=== PATIENT | female | born 1970 | race African-American/Black ===

== ENCOUNTER 2017-10-30 09:19 | Inpatient (IN) | payer OTHER ==
--- NOTE | 2017-10-30 10:42 | HP ---
Admitting History and Physical - Admission Chief Complaint: Morbid obesity History Source: Patient Limitations to Obtaining History: No Limitations - Past Medical History Cardiovascular: Yes: HTN, Hyperlipdemia Pulmonary: Yes: COPD ...LMP: 10/23/17 ...: No Musculoskeletal: Yes: Chronic low back pain Endocrine: Yes: Diabetes Mellitus, Hypothyroidism - Past Surgical History Additional Past Surgical History: thyroidectomy - Smoking History Smoking history: Never smoked - Alcohol/Substance Use Hx Alcohol Use: Yes (social) Home Medications - Allergies Allergies/Adverse Reactions: Allergies Allergy/AdvReac Type Severity Reaction Status Date / Time No Known Allergies Allergy Verified 10/30/17 10:11 - Home Medications Home Medications: Ambulatory Orders Levothyroxine [Synthroid -] 150 mcg PO DAILY 04/20/17 Aspirin [ASA -] 81 mg PO DAILY 10/29/17 Atorvastatin Calcium 20 mg PO DAILY 10/29/17 Insulin Aspart [Novolog] 30 unit SQ DAILY 10/29/17 Insulin Degludec [Tresiba Flextouch U-100] 50 unit SQ DAILY 10/29/17 Metformin HCl [Glucophage] 1,000 mg PO DAILY 10/29/17 Famotidine [Pepcid] 20 mg PO BID #60 tablet 10/30/17 Oxycodone HCl/Acetaminophen [Percocet 5-325 mg Tablet] 1 - 2 tab PO Q6H #28 tab MDD 4 10/30/17 Family Disease History - Family Disease History Family History: Denies Review of Systems - Review of Systems Constitutional: denies: Chills, Fever Eyes: reports: No Symptoms HENT: reports: No Symptoms Neck: reports: No Symptoms Cardiovascular: reports: No Symptoms Respiratory: reports: No Symptoms Gastrointestinal: reports: No Symptoms Neurological: denies: Change in LOC Pain Intensity: 0 Physical Examination Vital Signs: Vital Signs Temperature 98.4 F 10/30/17 10:00 Pulse Rate 104 H 10/30/17 10:00 Respiratory Rate 18 10/30/17 10:00 Blood Pressure 163/94 10/30/17 10:00 O2 Sat by Pulse Oximetry (%) 100 10/30/17 10:11 Constitutional: Yes: Calm HENT: Yes: WNL Neck: Yes: WNL Cardiovascular: Yes: Regular Rate and Rhythm Respiratory: Yes: Regular Gastrointestinal: Yes: Soft, Abdomen, Obese Neurological: Yes: Alert, Oriented Problem List - Problems (1) Morbid (severe) obesity due to excess calories Code(s): E66.01 - MORBID (SEVERE) OBESITY DUE TO EXCESS CALORIES (2) BMI 50.0-59.9, adult Code(s): Z68.43 - BODY MASS INDEX (BMI) 50-59.9 , ADULT (3) Diabetes mellitus Code(s): E11.9 - TYPE 2 DIABETES MELLITUS WITHOUT COMPLICATIONS Qualifiers: Diabetes mellitus type: type 2 Diabetes mellitus half-way insulin use: unspecified half-way insulin use status Diabetes mellitus complication status : with unspecified complications Qualified Code(s): E11.8 - Type 2 diabetes mellitus with unspecified complications (4) Sleep apnea with use of continuous positive airway pressure (CPAP) Code(s): G47.30 - SLEEP APNEA, UNSPECIFIED (5) Hypertension Code(s): I10 - ESSENTIAL (PRIMARY) HYPERTENSION Qualifiers: Hypertension type: unspecified Qualified Code(s): I10 - Essential (primary ) hypertension (6) Hypercholesteremia Code(s): E78.00 - PURE HYPERCHOLESTEROLEMIA, UNSPECIFIED Assessment/Plan Laparoscopic possible open vertical sleeve gastrectomy, possible liver biopsy, EGD
[2017-10-30] MEDS ORDERED: INSULIN REGULAR HUMAN 100 UNITS/ML *VIAL SQ ONE (10:45)
[2017-10-30] MEDS ORDERED: MIDAZOLAM HCL 2 MG/2 ML SINGLE DOSE VIAL ONE (13:08)
[2017-10-30] MEDS ORDERED: ROCURONIUM BROMIDE 50 MG/5 ML VIAL ONE ×2 (13:08→15:18)
[2017-10-30] MEDS ORDERED: DEXAMETHASONE SOD PHOSPHATE 4 MG/1 ML VIAL ONE (13:08)
[2017-10-30] MEDS ORDERED: PROPOFOL 20 ML ONE (13:08)
[2017-10-30] MEDS ORDERED: fentaNYL CITRATE 250 MCG/5 ML VIAL ONE (13:08)
[2017-10-30] MEDS ORDERED: LIDOCAINE HCL/PF 2% SDV 5ML VIAL ONE (13:08)
[2017-10-30] MEDS ORDERED: NEOSTIGMINE METHYLSULFATE 0.5 MG/ML - 10 ML MDV ONE ×2 (13:22→16:30)
[2017-10-30] MEDS ORDERED: GLYCOPYRROLATE 0.2 MG/1 ML VIAL ONE ×2 (13:23→16:31)
[2017-10-30] MEDS ORDERED: ONDANSETRON 4 MG/2 ML VIAL IVPUSH PRN (13:57)
[2017-10-30] MEDS ORDERED: LACTATED RINGERS SOLUTION 1,000 ML IV SCH (14:00)
[2017-10-30] MEDS ORDERED: DESFLURANE GAS 240 ML BOTTLE IH ONE (14:19)
[2017-10-30] MEDS ORDERED: BUPIVACAINE HCL/PF 0.5% (5MG/ML) 10 ML VIAL ONE (14:31)
[2017-10-30] MEDS ORDERED: ceFAZolin SODIUM 1 GM VIAL IVPB ONE (14:50)
[2017-10-30] MEDS ORDERED: ceFAZolin SODIUM 1 GM VIAL ONE (14:51)
[2017-10-30] MEDS ORDERED: PHENYLEPHRINE HCL 10 MG/1 ML SINGLE DOSE VIAL ONE (15:23)
--- NOTE | 2017-10-30 16:33 | OP ---
Operative Note - Note: Operative Date: 10/30/17 Pre-Operative Diagnosis: Morbid obesity. BMI 58.2. Diabetes mellitus. Hypercholeterolemia Operation: Laparoscopic vertical sleeve gastrectomy, liver biopsy, EGD Post-Operative Diagnosis: Other (Same as preop as well as hepatomegaly) Surgeon: Oscar Evans (Ling Lazar) Pitch Gatherer: Luiz Carpenter Anesthesia: General Specimens Removed: Greater curvature of stomach. Liver biopsy Drains & Tubes with Location: 36 fr Bougie Operative Report Dictated: Yes
[2017-10-30] MEDS ORDERED: LIDOCAINE HCL/PF 1% SDV 5ML VIAL ONE (16:34)
--- NOTE | 2017-10-30 17:06 | SURG ---
Surgery Field Court Researcher Note Field Court Researcher: Luiz Carpenter PA-C Date of Service: 10/30/17 Diagnosis: Morbid obesity. BMI 58.2. Diabetes mellitus. Hypercholeterolemia Procedure: Laparoscopic vertical sleeve gastrectomy, liver biopsy, EGD I was present for the entirety of the operative procedure. For further detail, please refer to operative report. Visit type - Case Type Case Type: Scheduled - New patient This patient is new to me today: Yes Date on this admission: 10/30/17
[2017-10-30] MEDS ORDERED: ACETAMINOPHEN INJECTION 100 ML IVPB ONE (17:19)
[2017-10-30] MEDS ORDERED: METOCLOPRAMIDE HCL INJECTION 10 MG/2 ML VIAL ONE (17:19)
[2017-10-30] MEDS ORDERED: ONDANSETRON 4 MG/2 ML VIAL ONE (17:19)
[2017-10-30] MEDS: ACETAMINOPHEN 1000 MG/100 ML VIAL (NON FORMULARY) IVPB SCH (17:30)
[2017-10-30 17:53] LABS: HEMATOCRIT 34.7 % (32.4-45.2); HEMOGLOBIN 11.4 GM/dL (10.7-15.3); MCH 28.7 pg (25.7-33.7); MCHC 32.8 g/dl (32.0-36.0); MEAN CELL VOLUME 87.4 fl (80-96); MEAN PLT VOLUME 9.8 fl (7.5-11.1); PLATELET COUNT 212 K/MM3 (134-434); RBC 3.97 M/mm3 (3.60-5.2); RDW 14.5 % (11.6-15.6); WHITE BLOOD COUNT 14.6 K/mm3 (4.0-10.0)
[2017-10-30] MEDS: METOCLOPRAMIDE HCL INJECTION 10 MG/2 ML VIAL IVPUSH SCH ×2 (18:00→22:38)
[2017-10-30] MEDS ORDERED: SODIUM CHLORIDE 1,000 ML IV SCH (18:00)
[2017-10-30] MEDS: ONDANSETRON 4 MG/2 ML VIAL IVPUSH SCH ×2 (18:15→22:44)
[2017-10-30 18:27] LABS: ALBUMIN 2.9 g/dl (3.4-5.0); ALK PHOS 120 U/L (45-117); ANION GAP 8 MMOL/L (8-16); BILIRUBIN,TOTAL 0.2 mg/dL (0.2-1); BLOOD UREA NITROGEN 28 mg/dL (7-18); CALCIUM 8.7 mg/dL (8.5-10.1); CHLORIDE 102 mmol/L (98-107); CO2 25 mmol/L (21-32); GLUCOSE,RANDOM 216 mg/dL (74-106); POTASSIUM 4.5 mmol/L (3.5-5.1); SGOT/AST 96 U/L (15-37); SGPT/ALT 68 U/L (13-61); SODIUM 134 mmol/L (136-145); TOT PROT 7.7 g/dl (6.4-8.2)
[2017-10-30] MEDS: INSULIN SLIDING SCALE (NOVOLOG) 1 VIAL SQ SCH (19:56)
--- NOTE | 2017-10-30 20:03 | SPEC ---
DATE OF OPERATION: 10/30/2017 SURGEON: Oscar Evans MD VISION SPECIALIST: JS Magallon and Ling Lazar. PREOPERATIVE DIAGNOSIS: 1. Morbid obesity. 2. Body Mass Index (BMI) 58.2. 3. Hypercholesterolemia. 4. Diabetes mellitus. 5. Obstructive sleep apnea. POSTOPERATIVE DIAGNOSIS: 1. Morbid obesity. 2. Body Mass Index (BMI) 58.2. 3. Hypercholesterolemia. 4. Diabetes mellitus. 5. Obstructive sleep apnea. 6. Hepatomegaly. PROCEDURES: 1. Laparoscopic vertical sleeve gastrectomy. 2. Laparoscopic wedge liver biopsy. 3. Esophagogastroduodenoscopy. SPECIMENS: 1. Greater curvature of the stomach. 2. Liver biopsy. ESTIMATED BLOOD LOSS: 30 mL. DRAINS: None. ANESTHESIA: GET. BOUGIE SIZE: 36-[place]istani. REASON FOR PROCEDURE: This is a 47-year-old female who presents for weight loss options. After describing different options, she decided to proceed with a laparoscopic, possible open, vertical sleeve gastrectomy, possible liver biopsy and upper endoscopy. RISKS AND BENEFITS: After describing the different options for weight loss management, the patient decided to proceed with a laparoscopic, possible open vertical sleeve gastrectomy. The patient was seen by the respective subspecialties and cleared for surgery. The risks and benefits of the procedure were explained. These included bleeding, infection, hernia, KS, DVT, PE, injury to surrounding structures including the liver, colon, bowel, spleen, esophagus, vessel injury, nerve injury, weight regain, gastric leak, staple line leak, sleeve leak, obstruction, vitamin deficiency, hair loss and as some of the possible complications. The patient understood and signed informed consent. DESCRIPTION OF PROCEDURE: The patient was placed supine on the operating room table. The patient underwent general endotracheal intubation. The arms were brought out at 90 degrees and secured. A footboard was placed and the legs were secured laterally with padding. The abdomen was prepped and draped in the usual sterile fashion. A timeout was performed. An incision was made in the left upper quadrant and a Veress needle inserted. Pneumoperitoneum was established. Subsequently, the Veress needle was removed and a 5-mm trocar was placed under direct visualization with the laparoscope. The laparoscopic camera was then inserted and inspection of the abdominal cavity was performed. An incision was then made in the supraumbilical area and a 15-mm trocar was placed under direct visualization. A 5-mm trocar was then placed in the right upper quadrant and a 5-mm trocar was placed below the left subcostal margin. A stab wound was made in the subxiphoid area and a Mendy clamp inserted and removed to dilate the tract. A Trudy liver retractor was inserted. The post was secured at the bedside by the nursing staff. The patient was placed in steep reverse Trendelenburg position and the Trudy liver retractor was used to secure the liver towards the anterior abdominal wall. The pylorus was identified and 6 cm proximal to it, the lesser sac was entered using the LigaSure device. All lateral attachments to the greater curvature of the stomach, including the short gastric vessels, were ligated using the LigaSure device toward the gastrosplenic and gastrophrenic ligaments. Once this was done in its entirety, it was confirmed that all tubes within the nasal or oropharyngeal cavity, including a temperature probe, was removed by Anesthesia. The bougie was then inserted by Anesthesia. Transection of the stomach was then begun staying adjacent to the bougie but away from the angularis. Transection of the stomach was performed near the portion of the stomach where the lesser sac was entered. Two laparoscopic Endo-KENDALL black shayan were used at this location. Laparoscopic Endo KENDALL purple staple loads were then used for the remainder of the transection until the greater curvature of the stomach was fully transected. This was done staying close to the bougie. Care was taken to stay away from the angle of His cephalad. The staple line was then inspected. Hemostasis was identified. A leak test was then performed. It was clamped distally to the staple line. Irrigation solution was placed in the left upper quadrant and air was insufflated by Anesthesia into the sleeve. No leaks were identified. No obstruction was identified. This was done through the entirety of the staple line. In addition, an upper endoscopy was performed. The endoscope was placed into the patients mouth and the entirety of the esophagus, GE junction, gastric pouch and staple line were inspected. No obstruction or leak was noted. The stomach was suctioned and the endoscope removed fully intact. At this point, the irrigation solution was suctioned and again, hemostasis was noted. A wedge liver biopsy was then performed. The left lobe of the liver was identified and a portion of the edge was grasped. Using electrocautery, a wedge of the liver was excised. This was removed and sent off the field as specimen. Hemostasis at the site of the wedge liver biopsy was attained using electrocautery. The 15-mm supraumbilical trocar was then removed and the greater curvature specimen removed from the site using a sponge stick li. The specimen was inspected and a Veress needle inserted. The specimen insufflated adequately and no leak was identified. The staple line was noted to be intact. A Jose-Melony device was then used to close the fascia with a 0 Vicryl suture at the site. Again, hemostasis was noted. The Trudy liver retractor was then removed under direct visualization. Pneumoperitoneum was desufflated and the fascial sutures were secured. Hemostasis was noted at all incision sites and Marcaine was injected at all incision sites. All incision sites were closed using 4-0 Biosyn. Sterile dressings were applied. The patient tolerated the procedure well and was transferred to the recovery room in stable condition. The patient was transferred to telemetry for further monitoring. Matias [id number]
[2017-10-30] MEDS: ENOXAPARIN NA (PORCINE) 40 MG/0.4 ML DISP.SYRIN SQ SCH (22:38)
[2017-10-30] MEDS: morphine SULFATE 4 MG/ML VIAL IVPUSH PRN (22:39)
[2017-10-30] MEDS: FAMOTIDINE 20 MG/50 ML IVPB 20 MG/50 ML MG IVPB SCH (22:39)
[2017-10-31] MEDS: ACETAMINOPHEN 1000 MG/100 ML VIAL (NON FORMULARY) IVPB SCH ×3 (01:40→11:42)
[2017-10-31] MEDS: ONDANSETRON 4 MG/2 ML VIAL IVPUSH SCH ×6 (02:17→21:42)
[2017-10-31] MEDS: METOCLOPRAMIDE HCL INJECTION 10 MG/2 ML VIAL IVPUSH SCH ×4 (02:17→21:42)
[2017-10-31 06:20] LABS: HEMATOCRIT 32.4 % (32.4-45.2); HEMOGLOBIN 10.5 GM/dL (10.7-15.3); MCH 28.2 pg (25.7-33.7); MCHC 32.3 g/dl (32.0-36.0); MEAN CELL VOLUME 87.1 fl (80-96); MEAN PLT VOLUME 9.6 fl (7.5-11.1); PLATELET COUNT 204 K/MM3 (134-434); RBC 3.72 M/mm3 (3.60-5.2); RDW 14.5 % (11.6-15.6); WHITE BLOOD COUNT 10.7 K/mm3 (4.0-10.0)
[2017-10-31] MEDS: INSULIN SLIDING SCALE (NOVOLOG) 1 VIAL SQ SCH ×3 (06:38→17:42)
--- NOTE | 2017-10-31 08:30 | PN ---
Progress Note (short form) - Note Progress Note: Pt seen and examined. States she is feeling well this morning. Denies any abdominal pain or discomfort. Tolerating ice chips without n/v. Has been oob to the restroom without issue. +Voiding. Denies cp, sob, calf pain/tenderness. Vital Signs Temp 98.9 F 10/31/17 05:00 Pulse 102 H 10/31/17 05:00 Resp 18 10/31/17 05:00 BP 136/67 10/31/17 05:00 Pulse Ox 100 10/30/17 21:00 Intake & Output 10/30/17 10/30/17 10/31/17 11:59 23:59 11:59 Intake Total 1450 1300 Output Total 30 Balance 1420 1300 Weight 350 lb 359 lb 3.2 oz Intake: IV 1450 1000 Normal Saline - 1,000 ml 1000 @ 150 mls/hr IV ASDIR PAULA Rx#:[id number] IVPB 300 Oral 0 Output: Estimated Blood Loss 30 Other: # Unmeasured Voids Void 1 Height 5 ft 5 in Body Mass Index (BMI) 58.2 Weight Measurement Method Estimated by Patient Standing Scale CBC, BMP 10/31/17 05:30 Gen: awake, alert, in nad. Laying in bed. Resp: cta b/l CV: rrr, s1s2, no murmur appreciated Abdomen: soft, nontender, nondistended. Bandaids c/d/i, no bleeding, no surrounding erythema or ecchymosis noted. No palpable hematoma. 47 y/o F w/ PMHx HTN, HLD, IDDM, hypothyroidism, FLORES, morbid obesity, now POD 1 , s/p Laparoscopic vertical sleeve gastrectomy, wedge liver biopsy, EGD. Stable post op, Mildly tachy to low 100s. CBC stable, BMP pending, pt with elevated creatinine on preop labs (2.0, with creat clearance <30) P: Upper GI series this AM F/U BMP Pain control with Ofirmev 1g q6h, Morphine 4mg q4hrs prn DVT prophylaxis with Lovenox 40mg bid (may need to change/adjust pending BMP), b /l SCDS, b/l TEDS GI prophylaxis with Pepcid 20mg IV BID, Reglan 10mg q6hrs Zofran 4mg q4hrs prn n/v FS, ISS Remote tele/continuous pulse ox Monitor VS Monitor I&Os OOB ad eri Continue IVF Incentive spirometry will discuss above with attending, Dr Evans <Marisa Lazar - Last Filed: 10/31/17 08:33> - Note Progress Note: POD 1 Pain controlled No nausea BP elevated HR WNL Abd soft K 5.4 Cr 2.0 UGI: no leak/obstruction Clears Nephrology and cardiology consults <Oscar Evans - Last Filed: 10/31/17 12:43> Problem List - Problems (1) Morbid (severe) obesity due to excess calories Code(s): E66.01 - MORBID (SEVERE) OBESITY DUE TO EXCESS CALORIES (2) BMI 50.0-59.9, adult Code(s): Z68.43 - BODY MASS INDEX (BMI) 50-59.9 , ADULT (3) Diabetes mellitus Code(s): E11.9 - TYPE 2 DIABETES MELLITUS WITHOUT COMPLICATIONS Qualifiers: Diabetes mellitus type: type 2 Diabetes mellitus skilled nursing insulin use: unspecified terminal supervisor insulin use status Diabetes mellitus complication status : with unspecified complications Qualified Code(s): E11.8 - Type 2 diabetes mellitus with unspecified complications (4) Sleep apnea with use of continuous positive airway pressure (CPAP) Code(s): G47.30 - SLEEP APNEA, UNSPECIFIED (5) Hypertension Code(s): I10 - ESSENTIAL (PRIMARY) HYPERTENSION Qualifiers: Hypertension type: unspecified Qualified Code(s): I10 - Essential (primary ) hypertension (6) Hypercholesteremia Code(s): E78.00 - PURE HYPERCHOLESTEROLEMIA, UNSPECIFIED <Oscar Evans - Last Filed: 10/31/17 12:43>
[2017-10-31 08:46] LABS: ALBUMIN 2.7 g/dl (3.4-5.0); ALK PHOS 112 U/L (45-117); ANION GAP 10 MMOL/L (8-16); BILIRUBIN,TOTAL 0.3 mg/dL (0.2-1); BLOOD UREA NITROGEN 29 mg/dL (7-18); CALCIUM 8.6 mg/dL (8.5-10.1); CHLORIDE 101 mmol/L (98-107); CO2 24 mmol/L (21-32); POTASSIUM 5.4 mmol/L (3.5-5.1); SGOT/AST 126 U/L (15-37); SGPT/ALT 71 U/L (13-61); SODIUM 134 mmol/L (136-145); TOT PROT 7.3 g/dl (6.4-8.2)
[2017-10-31 08:50] LABS: GLUCOSE,RANDOM 330 mg/dL (74-106)
[2017-10-31] MEDS: ENOXAPARIN NA (PORCINE) 40 MG/0.4 ML DISP.SYRIN SQ SCH ×2 (09:20→21:41)
[2017-10-31] MEDS: FAMOTIDINE 20 MG/50 ML IVPB 20 MG/50 ML MG IVPB SCH ×2 (09:20→21:42)
[2017-10-31] MEDS: morphine SULFATE 4 MG/ML VIAL IVPUSH PRN ×2 (09:21→19:55)
[2017-10-31] MEDS ORDERED: METOPROLOL TARTRATE 50 MG TABLET (FP) PO SCH (12:41)
[2017-10-31] MEDS ORDERED: PATIENT'S OWN MEDICATION (NON-FORMULARY) (Metformin Hcl [Glucophage] 1,000 MG) PO SCH (12:45)
[2017-10-31] MEDS ORDERED: SODIUM CHLORIDE 0.45% 1,000 ML IV SCH (12:45)
[2017-10-31] MEDS ORDERED: SODIUM CHLORIDE 1,000 ML IV SCH (12:45)
[2017-10-31] MEDS ORDERED: amLODIPine BESYLATE 10 MG TABLET (FP) PO ONE (14:00)
--- NOTE | 2017-10-31 15:35 | PN ---
Progress Note, Physician Chief Complaint: s/p lap vertical sleeve gastrectomy under general anesthesia History of Present Illness: post op day one - Current Medication List Current Medications: Active Medications Amlodipine Besylate (Norvasc -) 10 mg PO DAILY [facility] Enoxaparin Sodium (Lovenox -) 40 mg SQ BID [facility] Last Admin: 10/31/17 09:20 Dose: 40 mg Famotidine/Sodium Chloride (Pepcid 20 Mg Premixed Ivpb -) 20 mg in 50 mls @ 100 mls/hr IVPB BID [facility] Last Admin: 10/31/17 09:20 Dose: 100 mls/hr Sodium Chloride (1/2 Normal Saline) 1,000 mls @ 75 mls/hr IV ASDIR [facility] Last Admin: 10/31/17 15:02 Dose: 75 mls/hr Insulin Aspart (Novolog Vial Sliding Scale -) 1 vial SQ TIDAC [facility]; Protocol Last Admin: 10/31/17 11:42 Dose: 6 units Insulin Aspart (Novolog Vial) 30 units SQ AM [facility] Levothyroxine Sodium (Synthroid -) 150 mcg PO AM [facility] Metoclopramide HCl (Reglan Injection -) 10 mg IVPUSH Q6H-IV [facility] Last Admin: 10/31/17 15:02 Dose: 10 mg Metoprolol Succinate (Toprol Xl -) 100 mg PO DAILY [facility] Morphine Sulfate (Morphine Sulfate) 4 mg IVPUSH Q4H PRN PRN Reason: PAIN LEVEL 6-10 Last Admin: 10/31/17 09:21 Dose: 4 mg Non-Formulary Medication (Insulin Degludec [Tresiba Flextouch U-100]) 50 unit SQ DAILY [facility] Non-Formulary Medication (Metformin Hcl [Glucophage]) 1,000 mg PO DAILY [facility] Ondansetron HCl (Zofran Injection) 4 mg IVPUSH Q4H-IV [facility] Last Admin: 10/31/17 15:02 Dose: 4 mg Oxycodone HCl (Roxicodone -) 5 mg PO Q4H PRN PRN Reason: PAIN LEVEL 4 - 6 - Objective Vital Signs: Vital Signs Temperature 98.1 F 10/31/17 10:00 Pulse Rate 104 H 10/31/17 10:00 Respiratory Rate 18 10/31/17 10:00 Blood Pressure 174/90 H 10/31/17 10:00 O2 Sat by Pulse Oximetry (%) 100 10/31/17 10:00 Constitutional: Yes: Well Nourished Cardiovascular: Yes: WNL Respiratory: Yes: WNL Gastrointestinal: Yes: WNL Labs: CBC, BMP 10/31/17 05:30 10/31/17 05:30 Assessment/Plan No adverse effect of anesthetic, pain controlled, dept of anesthesia will sign off care at this time.
--- NOTE | 2017-10-31 18:27 | CONSULT ---
Consult Consult Specialty:: Nephrology Reason for Consultation:: REBEKAH - History of Present Illness Chief Complaint: s/p bariatric surgery - gastric sleeve History of Present Illness: Pt is a 47 year old female with pmhx of DM, obesity, CKD and HTN who is s/p gastric sleeve. I was called to evaluate her for elevated creatinine. She as also found to be hypertensive. Pt is on multiple agents for BP. She does not know all of her meds. I reviewed the med list from her PMD and from the pharmacy. There were some discrepancies with the meds. She is awake and alert. She says that she feels well. She denies shortness of breath. She denies palpitations. She denies dysuria or hematuria. She denies history of CKD however she did have an abnormal creatinine on previous bloodwork. - History Source History Provided By: Patient - Past Medical History Cardio/Vascular: Yes: HTN, Hyperlipdemia Pulmonary: Yes: COPD Renal/: Yes: Renal Inusuff ...LMP: 10/23/17 ...: No Musculoskeletal: Yes: Chronic low back pain Endocrine: Yes: Diabetes Mellitus, Hypothyroidism - Past Surgical History Past Surgical History: Yes: Bariatric Surgery Additional Surgical History: gastric sleeve - Alcohol/Substance Use Hx Alcohol Use: Yes (social) - Smoking History Smoking history: Never smoked Home Medications - Allergies Allergies/Adverse Reactions: Allergies Allergy/AdvReac Type Severity Reaction Status Date / Time No Known Allergies Allergy Verified 10/30/17 10:11 - Home Medications Home Medications: Ambulatory Orders Levothyroxine [Synthroid -] 150 mcg PO DAILY 04/20/17 Aspirin [ASA -] 81 mg PO DAILY 10/29/17 Insulin Aspart [Novolog] 30 unit SQ DAILY 10/29/17 Insulin Degludec [Tresiba Flextouch U-100] 50 unit SQ DAILY 10/29/17 Metformin HCl [Glucophage] 1,000 mg PO DAILY 10/29/17 RX: Atorvastatin Calcium 20 mg PO DAILY 10/29/17 Famotidine [Pepcid] 20 mg PO BID #60 tablet 10/30/17 Oxycodone HCl/Acetaminophen [Percocet 5-325 mg Tablet] 1 - 2 tab PO Q6H #28 tab MDD 4 10/30/17 Amlodipine Besylate [Norvasc -] 5 mg PO DAILY 10/31/17 Furosemide [Lasix] 40 mg PO BID 10/31/17 Losartan 50Mg/Hctz 12.5MG [Hyzaar -] 1 tab PO DAILY 10/31/17 RX: Ramipril 5 mg PO DAILY 10/31/17 Family Disease History - Family Disease History Family History: Denies Review of Systems - Review of Systems Constitutional: reports: No Symptoms Eyes: reports: No Symptoms HENT: reports: No Symptoms Neck: reports: No Symptoms Cardiovascular: reports: No Symptoms Respiratory: reports: No Symptoms Gastrointestinal: reports: Other (s/p bariatric surgery) Musculoskeletal: reports: No Symptoms Integumentary: reports: No Symptoms Neurological: reports: No Symptoms Endocrine: reports: No Symptoms Hematology/Lymphatic: reports: No Symptoms Psychiatric: reports: No Symptoms Physical Exam Vital Signs: Vital Signs Temperature 98.2 F 10/31/17 15:44 Pulse Rate 106 H 10/31/17 15:44 Respiratory Rate 15 10/31/17 15:44 Blood Pressure 159/94 10/31/17 15:44 O2 Sat by Pulse Oximetry (%) 100 10/31/17 10:00 Constitutional: Yes: Calm Eyes: Yes: Conjunctiva Clear HENT: Yes: Atraumatic Neck: Yes: Supple Cardiovascular: Yes: S1, S2 Gastrointestinal: Yes: Abdomen, Obese, Other (dressing in place) Renal/: Yes: WNL Musculoskeletal: Yes: WNL Edema: Yes Edema: LLE: Trace, RLE: Trace Neurological: Yes: Oriented Psychiatric: Yes: Oriented Labs: CBC, BMP 10/31/17 05:30 10/31/17 05:30 Laboratory Tests 04/06/17 10/30/17 10/30/17 13:42 17:15 17:15 WBC 14.6 H Sodium 134 L Potassium 4.5 Carbon Dioxide 25 Anion Gap 8 BUN Creatinine 1.4 H 2.0 H Random Glucose 216 H 10/31/17 10/31/17 05:30 05:30 WBC 10.7 H Sodium 134 L Potassium 5.4 H Carbon Dioxide Anion Gap BUN 29 H Creatinine 2.0 H Random Glucose 330 H* Problem List - Problems (1) CKD (chronic kidney disease) Code(s): N18.9 - CHRONIC KIDNEY DISEASE, UNSPECIFIED (2) REBEKAH (acute kidney injury) Code(s): N17.9 - ACUTE KIDNEY FAILURE, UNSPECIFIED (3) Hyperkalemia Code(s): E87.5 - HYPERKALEMIA (4) BMI 50.0-59.9, adult Code(s): Z68.43 - BODY MASS INDEX (BMI) 50-59.9 , ADULT (5) Diabetes mellitus Code(s): E11.9 - TYPE 2 DIABETES MELLITUS WITHOUT COMPLICATIONS Qualifiers: Diabetes mellitus type: type 2 Diabetes mellitus project estimator insulin use: unspecified project estimator insulin use status Diabetes mellitus complication status : with unspecified complications Qualified Code(s): E11.8 - Type 2 diabetes mellitus with unspecified complications (6) Hypercholesteremia Code(s): E78.00 - PURE HYPERCHOLESTEROLEMIA, UNSPECIFIED (7) Hypertension Code(s): I10 - ESSENTIAL (PRIMARY) HYPERTENSION Qualifiers: Hypertension type: unspecified Qualified Code(s): I10 - Essential (primary ) hypertension (8) Morbid (severe) obesity due to excess calories Code(s): E66.01 - MORBID (SEVERE) OBESITY DUE TO EXCESS CALORIES Assessment/Plan Current Medications Generic Name Dose Route Start Last Admin Trade Name Joniq PRN Reason Stop Dose Admin Amlodipine Besylate 10 mg 11/01/17 10:00 Norvasc - PO DAILY PAULA Enoxaparin Sodium 40 mg 10/30/17 22:00 10/31/17 09:20 Lovenox - SQ 40 mg BID PAULA Administration Famotidine/Sodium Chloride 20 mg in 50 mls @ 100 mls/hr 10/30/17 22:00 09:20 Pepcid 20 Mg Premixed Ivpb - IVPB 100 mls/hr BID [facility]ULA Administration Sodium Chloride 1,000 mls @ 75 mls/hr 10/31/17 12:45 10/31/17 15:02 1/2 Normal Saline IV 75 mls/hr ASDIR PAULA Administration Insulin Aspart 1 vial 10/30/17 18:00 10/31/17 17:42 Novolog Vial Sliding Scale - SQ 6 units TIDAC PAULA Administration Protocol Insulin Aspart 30 units 11/01/17 07:00 Novolog Vial SQ AM [facility] Levothyroxine Sodium 150 mcg 11/01/17 07:00 Synthroid - PO AM [facility] Metoclopramide HCl 10 mg 10/30/17 18:00 10/31/17 15:02 Reglan Injection - IVPUSH 10 mg Q6H-IV [facility] Administration Metoprolol Succinate 100 mg 11/01/17 10:00 Toprol Xl - PO DAILY [facility] Morphine Sulfate 4 mg 10/30/17 17:54 10/31/17 09:21 Morphine Sulfate IVPUSH 4 mg Q4H PRN Administration PAIN LEVEL 6-10 Non-Formulary Medication 50 unit 11/01/17 10:00 Insulin Degludec [Tresiba Flextouch U-100] SQ DAILY [facility] Non-Formulary Medication 1,000 mg 10/31/17 12:45 Metformin Hcl [Glucophage] PO DAILY [facility] Ondansetron HCl 4 mg 10/30/17 18:00 10/31/17 15:02 Zofran Injection IVPUSH 4 mg Q4H-IV [facility] Administration Oxycodone HCl 5 mg 10/31/17 12:33 Roxicodone - PO Q4H PRN PAIN LEVEL 4 - 6 Impression 1. CKD 2. REBEKAH 3. morbid obesity 4. s/p gastric sleeve 5. DM 6. HTN 7. hypothyroidism 8. hyperkalemia Plan - check ua - will check urine lytes and creatinine - check renal ultrasound - agree with changing fluids to 1/2ns - will need better glucose control - hold metformin - restart norvasc at 10 mg - restart metoprolol - hold off stew or arb for now (pharmacy list had her on both and pt does not remember which she was taking). Will need to hold as renal function is worse and her potassium is elevated - will evaluate for diuretics daily - her pressures now is 138/80 after the norvasc and metoprolol - repeat bmp now to evaluate potassium - spoke to nurse about plan, she will call with results Dr Domínguez
[2017-10-31 21:37] LABS: ANION GAP 11 MMOL/L (8-16); BLOOD UREA NITROGEN 28 mg/dL (7-18); CALCIUM 8.9 mg/dL (8.5-10.1); CHLORIDE 101 mmol/L (98-107); CO2 24 mmol/L (21-32); CREATININE 1.9 mg/dL (0.55-1.3); GLUCOSE,RANDOM 223 mg/dL (74-106); POTASSIUM 4.3 mmol/L (3.5-5.1); SODIUM 136 mmol/L (136-145)
--- NOTE | 2017-11-01 00:22 | PN ---
Progress Note (short form) - Note Progress Note: Laboratory Tests 10/31/17 20:00 Sodium 136 Potassium 4.3 Chloride 101 Carbon Dioxide 24 Anion Gap 11 BUN 28 H Creatinine 1.9 H repeat labs reviewed earlier potassium is stable renal function starting to improve repeat labs in am Problem List - Problems (1) CKD (chronic kidney disease) Code(s): N18.9 - CHRONIC KIDNEY DISEASE, UNSPECIFIED (2) REBEKAH (acute kidney injury) Code(s): N17.9 - ACUTE KIDNEY FAILURE, UNSPECIFIED (3) Hyperkalemia Code(s): E87.5 - HYPERKALEMIA (4) BMI 50.0-59.9, adult Code(s): Z68.43 - BODY MASS INDEX (BMI) 50-59.9 , ADULT (5) Diabetes mellitus Code(s): E11.9 - TYPE 2 DIABETES MELLITUS WITHOUT COMPLICATIONS Qualifiers: Diabetes mellitus type: type 2 Diabetes mellitus electromagnet crane operator insulin use: unspecified electromagnet crane operator insulin use status Diabetes mellitus complication status : with unspecified complications Qualified Code(s): E11.8 - Type 2 diabetes mellitus with unspecified complications (6) Hypercholesteremia Code(s): E78.00 - PURE HYPERCHOLESTEROLEMIA, UNSPECIFIED (7) Hypertension Code(s): I10 - ESSENTIAL (PRIMARY) HYPERTENSION Qualifiers: Hypertension type: unspecified Qualified Code(s): I10 - Essential (primary ) hypertension (8) Morbid (severe) obesity due to excess calories Code(s): E66.01 - MORBID (SEVERE) OBESITY DUE TO EXCESS CALORIES
[2017-11-01] MEDS: METOCLOPRAMIDE HCL INJECTION 10 MG/2 ML VIAL IVPUSH SCH ×4 (02:50→21:18)
[2017-11-01] MEDS: ONDANSETRON 4 MG/2 ML VIAL IVPUSH SCH ×6 (02:50→21:18)
[2017-11-01] MEDS: morphine SULFATE 4 MG/ML VIAL IVPUSH PRN ×2 (03:12→21:15)
[2017-11-01] MEDS: LEVOTHYROXINE NA 150 MCG TABLET PO SCH (06:06)
[2017-11-01] MEDS: INSULIN SLIDING SCALE (NOVOLOG) 1 VIAL SQ SCH ×3 (06:08→17:21)
[2017-11-01] MEDS: INSULIN (LEVEMIR) 100 UNITS/ML UNITS SQ SCH (06:19)
[2017-11-01] MEDS ORDERED: INSULIN (NOVOLOG) ASPART 100 UNITS/ML 10ML VIAL SQ SCH ×2 (07:00)
[2017-11-01 08:12] LABS: BASO % 0.8 % (0-2.0); EOS % 1.5 % (0-4.5); HEMATOCRIT 31.3 % (32.4-45.2); HEMOGLOBIN 10.3 GM/dL (10.7-15.3); MCH 28.6 pg (25.7-33.7); MCHC 32.9 g/dl (32.0-36.0); MEAN CELL VOLUME 86.7 fl (80-96); MEAN PLT VOLUME 9.3 fl (7.5-11.1); MONO % 8.5 % (3.8-10.2); NEUT % 67.2 % (42.8-82.8); PLATELET COUNT 178 K/MM3 (134-434); RBC 3.61 M/mm3 (3.60-5.2); RDW 14.2 % (11.6-15.6); WHITE BLOOD COUNT 9.2 K/mm3 (4.0-10.0)
[2017-11-01 08:47] LABS: ALBUMIN 2.5 g/dl (3.4-5.0); ALK PHOS 110 U/L (45-117); ANION GAP 8 MMOL/L (8-16); BILIRUBIN,TOTAL 0.2 mg/dL (0.2-1); BLOOD UREA NITROGEN 25 mg/dL (7-18); CALCIUM 8.1 mg/dL (8.5-10.1); CHLORIDE 102 mmol/L (98-107); CO2 25 mmol/L (21-32); CREATININE 1.8 mg/dL (0.55-1.3); GLUCOSE,RANDOM 255 mg/dL (74-106); POTASSIUM 4.2 mmol/L (3.5-5.1); SGOT/AST 455 U/L (15-37); SGPT/ALT 259 U/L (13-61); SODIUM 135 mmol/L (136-145); TOT PROT 7.2 g/dl (6.4-8.2)
[2017-11-01] MEDS: FAMOTIDINE 20 MG/50 ML IVPB 20 MG/50 ML MG IVPB SCH ×2 (09:04→21:18)
[2017-11-01] MEDS: ENOXAPARIN NA (PORCINE) 40 MG/0.4 ML DISP.SYRIN SQ SCH ×2 (09:04→21:19)
[2017-11-01] MEDS: amLODIPine BESYLATE 10 MG TABLET (FP) PO SCH (09:04)
--- NOTE | 2017-11-01 11:02 | CON.CARD ---
Consult Consult Specialty:: Cardiology Referred by:: vivi Evans Reason for Consultation:: htn - History of Present Illness Chief Complaint: S/p gastric sleeve History of Present Illness: 47 year old female with a pmhx of DM, obesity, CKD, and htn who is s/p gastric sleeve. Post op had elevated Cr 2.0 and htn. Denies any chest pain. No acute sob. No pnd or orthopnea. Trace LE edema. No palpitations. Says bp usually high as an outpatient. Losartan/hctz was stopped by renal team given Cr and also given some IVF's Restart on amlodipine increased to 10mg and metoprolol xl 100mg - History Source History Provided By: Patient, Medical Record - Past Medical History Cardio/Vascular: Yes: HTN, Hyperlipdemia Pulmonary: Yes: COPD Renal/: Yes: Renal Inusuff ...LMP: 10/23/17 ...: No Musculoskeletal: Yes: Chronic low back pain Endocrine: Yes: Diabetes Mellitus, Hypothyroidism - Past Surgical History Past Surgical History: Yes: Bariatric Surgery Additional Surgical History: gastric sleeve - Alcohol/Substance Use Hx Alcohol Use: Yes (social) - Smoking History Smoking history: Never smoked Home Medications - Allergies Allergies/Adverse Reactions: Allergies Allergy/AdvReac Type Severity Reaction Status Date / Time No Known Allergies Allergy Verified 10/30/17 10:11 - Home Medications Home Medications: Ambulatory Orders Levothyroxine [Synthroid -] 150 mcg PO DAILY 04/20/17 Aspirin [ASA -] 81 mg PO DAILY 10/29/17 Atorvastatin Calcium 20 mg PO DAILY 10/29/17 Insulin Aspart [Novolog] 30 unit SQ DAILY 10/29/17 Insulin Degludec [Tresiba Flextouch U-100] 50 unit SQ DAILY 10/29/17 Metformin HCl [Glucophage] 1,000 mg PO DAILY 10/29/17 Famotidine [Pepcid] 20 mg PO BID #60 tablet 10/30/17 Oxycodone HCl/Acetaminophen [Percocet 5-325 mg Tablet] 1 - 2 tab PO Q6H #28 tab MDD 4 10/30/17 Amlodipine Besylate [Norvasc -] 5 mg PO DAILY 10/31/17 Furosemide [Lasix] 40 mg PO BID 10/31/17 Losartan 50Mg/Hctz 12.5MG [Hyzaar -] 1 tab PO DAILY 10/31/17 Ramipril 5 mg PO DAILY 10/31/17 Vital Signs: Vital Signs Temperature 97.9 F 11/01/17 08:26 Pulse Rate 97 H 11/01/17 08:26 Respiratory Rate 20 11/01/17 08:29 Blood Pressure 150/98 11/01/17 08:26 O2 Sat by Pulse Oximetry (%) 98 11/01/17 08:29 Constitutional: Yes: No Distress Neck: Yes: Supple Respiratory: Yes: CTA Bilaterally Gastrointestinal: Yes: Soft Cardiovascular: Yes: Regular Rate and Rhythm JVD: No Carotid Bruit: No PMI: Non-Displaced Heart Sounds: Yes: S1, S2 Murmur: No: Systolic Murmur Edema: LLE: Trace, RLE: Trace - Other Data Labs, Other Data: CBC, BMP 11/01/17 07:27 11/01/17 07:27 Problem List - Problems (1) Hypertension Code(s): I10 - ESSENTIAL (PRIMARY) HYPERTENSION Qualifiers: Hypertension type: unspecified Qualified Code(s): I10 - Essential (primary ) hypertension Assessment/Plan 47 year old female with a pmhx of DM, obesity, CKD, and htn who is s/p gastric sleeve. Post op had elevated Cr 2.0 and htn. Denies any chest pain. No acute sob. No pnd or orthopnea. Trace LE edema. No palpitations. Says bp usually high as an outpatient. Losartan/hctz was stopped by renal team given Cr and also given some IVF's Restart on amlodipine increased to 10mg and metoprolol xl 100mg 1) HTN -ensure adequate pain control post op -Would get a 12 lead ekg -Cr appears to be trending down as 1.8 today. K is wnl. Being followed by renal team. Will continue amlodipine 10mg daily and increase metoprolol xl to 150mg daily. Will increase metoprolol as needed. If still needs additional agent and renal team prefers to avoid stew/arb/hctz than will plan to start hydralazine if needed at that time. -Monitor lfts as increasing. Sleep study as outpatient.
[2017-11-01 11:03] LABS: URINE APPEARANCE SLCLOUDY; URINE BILIRUBIN NEGATIVE (<2.0 mg/dL); URINE COLOR LTYELLOW; URINE GLUCOSE (UA) 3+ (NEGATIVE); URINE KETONE NEGATIVE (NEGATIVE); URINE NITRITE NEGATIVE (NEGATIVE); URINE UROBILINOGEN NEGATIVE mg/dL (0.2-1.0)
[2017-11-01 11:15] LABS: URINE LEUK ESTERASE 2+ (NEGATIVE); URINE PROTEIN 2+ (NEGATIVE)
[2017-11-01 11:21] LABS: EPI CELLS RARE /HPF (FEW); URINE BACTERIA RARE /hpf (NONE SEEN); URINE HYALINE CAST 1 /lpf; URINE MUCUS RARE; YEAST RARE
[2017-11-01] MEDS ORDERED: SODIUM CHLORIDE 0.45% 1,000 ML IV SCH (11:56)
--- NOTE | 2017-11-01 11:58 | PN ---
Progress Note (short form) - Note Progress Note: POD 2 No pain No nausea Tolerating clears Hypertensive- Cardiology evaluated; increased metoprolol and amlodipine Nephrology consulted and following- Cr trending down Vital Signs Period Temp Pulse Resp BP Sys/Falcon Pulse Ox Last 24 Hr 97.9 F-98.8 F 90-106 15-20 117-175/50-98 98-100 Abd soft Clears Ambulate Await BP control and clearance from cardiology and renal Problem List - Problems (1) Morbid (severe) obesity due to excess calories Code(s): E66.01 - MORBID (SEVERE) OBESITY DUE TO EXCESS CALORIES (2) BMI 50.0-59.9, adult Code(s): Z68.43 - BODY MASS INDEX (BMI) 50-59.9 , ADULT (3) Diabetes mellitus Code(s): E11.9 - TYPE 2 DIABETES MELLITUS WITHOUT COMPLICATIONS Qualifiers: Diabetes mellitus type: type 2 Diabetes mellitus mcc insulin use: unspecified roasterman insulin use status Diabetes mellitus complication status : with unspecified complications Qualified Code(s): E11.8 - Type 2 diabetes mellitus with unspecified complications (4) Sleep apnea with use of continuous positive airway pressure (CPAP) Code(s): G47.30 - SLEEP APNEA, UNSPECIFIED (5) Hypertension Code(s): I10 - ESSENTIAL (PRIMARY) HYPERTENSION Qualifiers: Hypertension type: unspecified Qualified Code(s): I10 - Essential (primary ) hypertension (6) Hypercholesteremia Code(s): E78.00 - PURE HYPERCHOLESTEROLEMIA, UNSPECIFIED
[2017-11-01] MEDS ORDERED: INSULIN (NOVOLOG) ASPART 100 UNITS/ML 10ML VIAL ONE ×2 (12:10→17:19)
--- NOTE | 2017-11-01 14:30 | PN ---
Progress Note, Physician History of Present Illness: Pt seen and examined at bedside. She is awake and alert. She denies shortness of breath. - Current Medication List Current Medications: Active Medications Amlodipine Besylate (Norvasc -) 10 mg PO DAILY [facility] Last Admin: 11/01/17 09:04 Dose: 10 mg Enoxaparin Sodium (Lovenox -) 40 mg SQ BID [facility] Last Admin: 11/01/17 09:04 Dose: 40 mg Famotidine/Sodium Chloride (Pepcid 20 Mg Premixed Ivpb -) 20 mg in 50 mls @ 100 mls/hr IVPB BID [facility] Last Admin: 11/01/17 09:04 Dose: 100 mls/hr Sodium Chloride (1/2 Normal Saline) 1,000 mls @ 42 mls/hr IV ASDIR [facility] Last Admin: 11/01/17 12:14 Dose: 42 mls/hr Insulin Aspart (Novolog Vial Sliding Scale -) 1 vial SQ TIDAC [facility]; Protocol Last Admin: 11/01/17 12:12 Dose: 4 units Insulin Aspart (Novolog Vial) 30 units SQ AM [facility] Insulin Detemir (Levemir Vial) 50 units SQ DAILY@0700 [facility] Last Admin: 11/01/17 06:19 Dose: 50 units Levothyroxine Sodium (Synthroid -) 150 mcg PO AM [facility] Last Admin: 11/01/17 06:06 Dose: 150 mcg Metoclopramide HCl (Reglan Injection -) 10 mg IVPUSH Q6H-IV [facility] Last Admin: 11/01/17 14:00 Dose: 10 mg Metoprolol Succinate (Toprol Xl -) 150 mg PO DAILY [facility] Morphine Sulfate (Morphine Sulfate) 4 mg IVPUSH Q4H PRN PRN Reason: PAIN LEVEL 6-10 Last Admin: 11/01/17 03:12 Dose: 4 mg Non-Formulary Medication (Metformin Hcl [Glucophage]) 1,000 mg PO DAILY [facility] Ondansetron HCl (Zofran Injection) 4 mg IVPUSH Q4H-IV [facility] Last Admin: 11/01/17 14:00 Dose: 4 mg Oxycodone HCl (Roxicodone -) 5 mg PO Q4H PRN PRN Reason: PAIN LEVEL 4 - 6 - Objective Vital Signs: Vital Signs Temperature 97.9 F 11/01/17 08:26 Pulse Rate 97 H 11/01/17 08:26 Respiratory Rate 20 11/01/17 08:29 Blood Pressure 150/98 11/01/17 08:26 O2 Sat by Pulse Oximetry (%) 98 11/01/17 08:29 Constitutional: Yes: Calm Eyes: Yes: Conjunctiva Clear HENT: Yes: Atraumatic Neck: Yes: Supple Cardiovascular: Yes: S1, S2 Respiratory: Yes: CTA Bilaterally Gastrointestinal: Yes: Normal Bowel Sounds, Soft, Abdomen, Obese, Other ( dressing in place) Genitourinary: Yes: WNL Musculoskeletal: Yes: WNL Extremities: Yes: WNL Edema: Yes Edema: LLE: Trace, RLE: Trace Integumentary: Yes: Venous Stasis Changes Neurological: Yes: Oriented Psychiatric: Yes: Oriented Labs: CBC, BMP 11/01/17 07:27 11/01/17 07:27 Problem List - Problems (1) CKD (chronic kidney disease) Code(s): N18.9 - CHRONIC KIDNEY DISEASE, UNSPECIFIED (2) REBEKAH (acute kidney injury) Code(s): N17.9 - ACUTE KIDNEY FAILURE, UNSPECIFIED (3) Hyperkalemia Code(s): E87.5 - HYPERKALEMIA (4) BMI 50.0-59.9, adult Code(s): Z68.43 - BODY MASS INDEX (BMI) 50-59.9 , ADULT (5) Diabetes mellitus Code(s): E11.9 - TYPE 2 DIABETES MELLITUS WITHOUT COMPLICATIONS Qualifiers: Diabetes mellitus type: type 2 Diabetes mellitus termite exterminator helper insulin use: unspecified termite exterminator helper insulin use status Diabetes mellitus complication status : with unspecified complications Qualified Code(s): E11.8 - Type 2 diabetes mellitus with unspecified complications (6) Hypercholesteremia Code(s): E78.00 - PURE HYPERCHOLESTEROLEMIA, UNSPECIFIED (7) Hypertension Code(s): I10 - ESSENTIAL (PRIMARY) HYPERTENSION Qualifiers: Hypertension type: unspecified Qualified Code(s): I10 - Essential (primary ) hypertension (8) Morbid (severe) obesity due to excess calories Code(s): E66.01 - MORBID (SEVERE) OBESITY DUE TO EXCESS CALORIES Assessment/Plan Current Medications Generic Name Dose Route Start Last Admin Trade Name Freq PRN Reason Stop Dose Admin Amlodipine Besylate 10 mg 11/01/17 10:00 11/01/17 09:04 Norvasc - PO 10 mg DAILY [facility] Administration Enoxaparin Sodium 40 mg 10/30/17 22:00 11/01/17 09:04 Lovenox - SQ 40 mg BID [facility] Administration Famotidine/Sodium Chloride 20 mg in 50 mls @ 100 mls/hr 10/30/17 22:00 09:04 Pepcid 20 Mg Premixed Ivpb - IVPB 100 mls/hr BID [facility] Administration Sodium Chloride 1,000 mls @ 42 mls/hr 11/01/17 11:56 11/01/17 12:14 1/2 Normal Saline IV 42 mls/hr ASDIR [facility] Administration Insulin Aspart 1 vial 10/30/17 18:00 11/01/17 12:12 Novolog Vial Sliding Scale - SQ 4 units TIDAC [facility] Administration Protocol Insulin Aspart 30 units 11/01/17 07:00 Novolog Vial SQ AM [facility] Insulin Detemir 50 units 11/01/17 07:00 11/01/17 06:19 Levemir Vial SQ 50 units DAILY@0700 [facility] Administration Levothyroxine Sodium 150 mcg 11/01/17 07:00 11/01/17 06:06 Synthroid - PO 150 mcg AM [facility] Administration Metoclopramide HCl 10 mg 10/30/17 18:00 11/01/17 14:00 Reglan Injection - IVPUSH 10 mg Q6H-IV [facility] Administration Metoprolol Succinate 150 mg 11/02/17 10:00 Toprol Xl - PO DAILY [facility] Morphine Sulfate 4 mg 10/30/17 17:54 11/01/17 03:12 Morphine Sulfate IVPUSH 4 mg Q4H PRN Administration PAIN LEVEL 6-10 Non-Formulary Medication 1,000 mg 10/31/17 12:45 Metformin Hcl [Glucophage] PO DAILY [facility] Ondansetron HCl 4 mg 10/30/17 18:00 11/01/17 14:00 Zofran Injection IVPUSH 4 mg Q4H-IV [facility] Administration Oxycodone HCl 5 mg 10/31/17 12:33 Roxicodone - PO Q4H PRN PAIN LEVEL 4 - 6 Laboratory Tests 11/01/17 11/01/17 03:01 03:01 Urine Protein 2+ H Urine Blood 2+ H Protein/Creatinin Ratio Pending Impression 1. CKD 2. REBEKAH 3. morbid obesity 4. s/p gastric sleeve 5. DM 6. HTN 7. hypothyroidism 8. hyperkalemia 9. ovarian cyst Plan - cont with norvasc and metoprolol - metoprolol dose increased - renal ultrasound reviewed - cont fluids - renal function improving - will need vehicle dismantler eval, this was discussed with her - pain control - will restart arb as renal function improves - will nee workup after discharge as well - can use hydralazine as well - potassium is improved Dr Domínguez
--- NOTE | 2017-11-01 16:31 | PATH ---
Surgical Pathology Report Patient Name: OLIVE GONZALES [facility]. Rec. #: [id number] /Age/Gender: 1970 (Age: 47) / F Account: [id number] Location: 4 W TELEMETRY U Taken: 10/30/2017 Received: 10/31/2017 Reported: 11/01/2017 Physicians: Oscar Evans M.D. Specimen(s) Received A: GREATER CURVATURE STOMACH B: LIVER BIOPSY Clinical History Morbid obesity Final Diagnosis A. STOMACH, GREATER CURVATURE, LAPAROSCOPIC VERTICAL SLEEVE GASTRECTOMY: PORTION OF STOMACH WITH MILD CHRONIC GASTRITIS. IMMUNOHISTOCHEMICAL STAIN FOR H. PYLORI IS NEGATIVE. B. LIVER, BIOPSY: LIVER PARENCHYMA WITH MODERATE STEATOSIS (~40%). NO INCREASE IN IRON AND FIBROSIS ON PERFORMED SPECIAL STAINS (IRON AND TRICHROME). Electronically Signed Aditi Pulido M.D. Gross Description A. Received in formalin, labeled "greater curvature stomach" is a 108 gram, 18 x 4 x 2 cm. portion of stomach with a stapled margin of resection. The serosa is lira-bassett with minimal attached fat. The mucosa is lira-pink with normal folds. No mucosal masses are identified. Car Clerk Pullman sections are submitted in one cassette. B. Received in formalin labeled "liver biopsy" is an irregular fragment of liver tissue measuring 3 x 2 x 1 cm. Cut section is unremarkable. Car Clerk Pullman sections are submitted in one cassette. MLSZ/10/31/2017 sanena/10/31/2017
[2017-11-01 16:34] LABS: RATIO URIN PROTEIN/URIN CREAT 2.8 MG/DL
[2017-11-01] MEDS ORDERED: INSULIN (NOVOLOG MIX 70/30) 100 UNITS/ML MDV SQ ONE (17:19)
[2017-11-02] MEDS: morphine SULFATE 4 MG/ML VIAL IVPUSH PRN (01:44)
[2017-11-02] MEDS: ONDANSETRON 4 MG/2 ML VIAL IVPUSH SCH ×6 (01:44→21:13)
[2017-11-02] MEDS: METOCLOPRAMIDE HCL INJECTION 10 MG/2 ML VIAL IVPUSH SCH ×4 (02:50→20:29)
[2017-11-02] MEDS: INSULIN SLIDING SCALE (NOVOLOG) 1 VIAL SQ SCH ×3 (06:15→16:30)
[2017-11-02] MEDS: LEVOTHYROXINE NA 150 MCG TABLET PO SCH (06:15)
[2017-11-02] MEDS: INSULIN (LEVEMIR) 100 UNITS/ML UNITS SQ SCH (06:16)
[2017-11-02] MEDS: amLODIPine BESYLATE 10 MG TABLET (FP) PO SCH (09:43)
[2017-11-02] MEDS: ENOXAPARIN NA (PORCINE) 40 MG/0.4 ML DISP.SYRIN SQ SCH ×2 (09:43→21:42)
[2017-11-02] MEDS: FAMOTIDINE 20 MG/50 ML IVPB 20 MG/50 ML MG IVPB SCH ×2 (09:44→21:44)
[2017-11-02] MEDS ORDERED: INSULIN (NOVOLOG) ASPART 100 UNITS/ML 10ML VIAL ONE (11:05)
[2017-11-02 11:16] LABS: ANION GAP 12 MMOL/L (8-16); BLOOD UREA NITROGEN 24 mg/dL (7-18); CALCIUM 8.6 mg/dL (8.5-10.1); CHLORIDE 104 mmol/L (98-107); CO2 21 mmol/L (21-32); CREATININE 1.7 mg/dL (0.55-1.3); GLUCOSE,RANDOM 152 mg/dL (74-106); POTASSIUM 4.3 mmol/L (3.5-5.1); SODIUM 137 mmol/L (136-145)
--- NOTE | 2017-11-02 13:26 | PN ---
Progress Note, Physician Chief Complaint: No complaints today BP improved History of Present Illness: 47 year old female with a pmhx of DM, obesity, CKD, and htn who is s/p gastric sleeve. Post op had elevated Cr 2.0 and htn. Denies any chest pain. No acute sob. No pnd or orthopnea. Trace LE edema. No palpitations. Says bp usually high as an outpatient. Losartan/hctz was stopped by renal team given Cr and also given some IVF's Restart on amlodipine increased to 10mg and metoprolol xl 100mg - Current Medication List Current Medications: Active Medications Amlodipine Besylate (Norvasc -) 10 mg PO DAILY [facility] Last Admin: 11/02/17 09:43 Dose: 10 mg Enoxaparin Sodium (Lovenox -) 40 mg SQ BID [facility] Last Admin: 11/02/17 09:43 Dose: 40 mg Famotidine/Sodium Chloride (Pepcid 20 Mg Premixed Ivpb -) 20 mg in 50 mls @ 100 mls/hr IVPB BID [facility] Last Admin: 11/02/17 09:44 Dose: 100 mls/hr Insulin Aspart (Novolog Vial Sliding Scale -) 1 vial SQ TIDAC [facility]; Protocol Last Admin: 11/02/17 11:27 Dose: Not Given Insulin Aspart (Novolog Vial) 30 units SQ AM [facility] Insulin Detemir (Levemir Vial) 50 units SQ DAILY@0700 [facility] Last Admin: 11/02/17 06:16 Dose: 50 units Levothyroxine Sodium (Synthroid -) 150 mcg PO AM [facility] Last Admin: 11/02/17 06:15 Dose: 150 mcg Metoclopramide HCl (Reglan Injection -) 10 mg IVPUSH Q6H-IV [facility] Last Admin: 11/02/17 09:44 Dose: 10 mg Metoprolol Succinate (Toprol Xl -) 150 mg PO DAILY [facility] Last Admin: 11/02/17 09:43 Dose: 150 mg Morphine Sulfate (Morphine Sulfate) 4 mg IVPUSH Q4H PRN PRN Reason: PAIN LEVEL 6-10 Last Admin: 11/02/17 01:44 Dose: 4 mg Non-Formulary Medication (Metformin Hcl [Glucophage]) 1,000 mg PO DAILY [facility] Ondansetron HCl (Zofran Injection) 4 mg IVPUSH Q4H-IV [facility] Last Admin: 11/02/17 10:02 Dose: 4 mg Oxycodone HCl (Roxicodone -) 5 mg PO Q4H PRN PRN Reason: PAIN LEVEL 4 - 6 - Objective Vital Signs: Vital Signs Temperature 98.8 F 11/02/17 10:00 Pulse Rate 92 H 11/02/17 10:00 Respiratory Rate 20 11/02/17 10:00 Blood Pressure 148/74 11/02/17 10:00 O2 Sat by Pulse Oximetry (%) 99 11/02/17 10:00 Constitutional: Yes: No Distress Neck: Yes: Supple Cardiovascular: Yes: Regular Rate and Rhythm, S1, S2. No: JVD, Murmur Respiratory: Yes: CTA Bilaterally Gastrointestinal: Yes: Soft Edema: LLE: Trace, RLE: Trace Labs: CBC, BMP 11/01/17 07:27 11/02/17 05:30 Problem List - Problems (1) Hypertension Code(s): I10 - ESSENTIAL (PRIMARY) HYPERTENSION Qualifiers: Hypertension type: unspecified Qualified Code(s): I10 - Essential (primary ) hypertension Assessment/Plan 47 year old female with a pmhx of DM, obesity, CKD, and htn who is s/p gastric sleeve. Post op had elevated Cr 2.0 and htn. Denies any chest pain. No acute sob. No pnd or orthopnea. Trace LE edema. No palpitations. Says bp usually high as an outpatient. Losartan/hctz was stopped by renal team given Cr and also given some IVF's Restart on amlodipine increased to 10mg and metoprolol xl 100mg 1) HTN BP is improving on increased amlodipine and metoprolol. Cr trending down. Patient planned for DC tomorrow. Would continue increased regimen. Start arb when ok with renal team. -should call for appt with Dr. Meir Marley upon DC. [phone] Sleep study as outpatient.
--- NOTE | 2017-11-02 14:14 | PN ---
Progress Note (short form) - Note Progress Note: POD#3 Pt states that she is tolerating clears bariatric diet and drinking water also. No nausea/emesis complaints. No CP or SOB. Vital Signs Period Temp Pulse Resp BP Sys/Falcon Pulse Ox Last 24 Hr 98.5 F-99.1 F 63-98 18-20 127-157/66-80 97-99 GEN: oob to chair, NAD ABD: soft, obese, non-distended, non-tender. Inc c/d/i with bandaids. LE: swelling b/l. no calf tenderness. CBC, BMP 11/01/17 07:27 11/02/17 05:30 Laboratory Tests 11/01/17 11/01/17 11/02/17 16:33 21:16 05:39 POC Glucometer 210 167 173 11/02/17 11:26 POC Glucometer 144 A/P: 47 yo female s/p vertical sleeve gastrectomy, POD#3 Saw the patient today with Renal, may discontinue IV fluids since the patient is drinking fluids and tolerating a diet Will hold on metformin Continue norvasc/beta abhijit as per renal/cardiology Check BUN/CRET in the am D/w Dr. Evans DVT ppx with lovneox SQ <Ivonne Alarcon - Last Filed: 11/02/17 14:19> - Note Progress Note: Agree Tolerating diet No pain/nausea BP elevated- cardiology following for BP control Continue clears BP control OOB <Oscar Evans - Last Filed: 11/03/17 14:14> Problem List - Problems (1) Morbid (severe) obesity due to excess calories Code(s): E66.01 - MORBID (SEVERE) OBESITY DUE TO EXCESS CALORIES (2) BMI 50.0-59.9, adult Code(s): Z68.43 - BODY MASS INDEX (BMI) 50-59.9 , ADULT (3) Diabetes mellitus Code(s): E11.9 - TYPE 2 DIABETES MELLITUS WITHOUT COMPLICATIONS Qualifiers: Diabetes mellitus type: type 2 Diabetes mellitus care home insulin use: unspecified change lead insulin use status Diabetes mellitus complication status : with unspecified complications Qualified Code(s): E11.8 - Type 2 diabetes mellitus with unspecified complications (4) Sleep apnea with use of continuous positive airway pressure (CPAP) Code(s): G47.30 - SLEEP APNEA, UNSPECIFIED (5) Hypertension Code(s): I10 - ESSENTIAL (PRIMARY) HYPERTENSION Qualifiers: Hypertension type: unspecified Qualified Code(s): I10 - Essential (primary ) hypertension (6) Hypercholesteremia Code(s): E78.00 - PURE HYPERCHOLESTEROLEMIA, UNSPECIFIED <Oscar Evans - Last Filed: 11/03/17 14:14>
--- NOTE | 2017-11-02 14:27 | PN ---
Progress Note, Physician History of Present Illness: Pt seen and examined at bedside. She is awake and alert. SHe denies shortness of breath. She is tolerating diet. She says that her legs are much less swolen than they usually are. - Current Medication List Current Medications: Active Medications Amlodipine Besylate (Norvasc -) 10 mg PO DAILY [facility] Last Admin: 11/02/17 09:43 Dose: 10 mg Enoxaparin Sodium (Lovenox -) 40 mg SQ BID [facility] Last Admin: 11/02/17 09:43 Dose: 40 mg Famotidine/Sodium Chloride (Pepcid 20 Mg Premixed Ivpb -) 20 mg in 50 mls @ 100 mls/hr IVPB BID [facility] Last Admin: 11/02/17 09:44 Dose: 100 mls/hr Insulin Aspart (Novolog Vial Sliding Scale -) 1 vial SQ TIDAC [facility]; Protocol Last Admin: 11/02/17 11:27 Dose: Not Given Insulin Aspart (Novolog Vial) 30 units SQ AM [facility] Insulin Detemir (Levemir Vial) 50 units SQ DAILY@0700 [facility] Last Admin: 11/02/17 06:16 Dose: 50 units Levothyroxine Sodium (Synthroid -) 150 mcg PO AM [facility] Last Admin: 11/02/17 06:15 Dose: 150 mcg Metoclopramide HCl (Reglan Injection -) 10 mg IVPUSH Q6H-IV [facility] Last Admin: 11/02/17 09:44 Dose: 10 mg Metoprolol Succinate (Toprol Xl -) 150 mg PO DAILY [facility] Last Admin: 11/02/17 09:43 Dose: 150 mg Morphine Sulfate (Morphine Sulfate) 4 mg IVPUSH Q4H PRN PRN Reason: PAIN LEVEL 6-10 Last Admin: 11/02/17 01:44 Dose: 4 mg Non-Formulary Medication (Metformin Hcl [Glucophage]) 1,000 mg PO DAILY [facility] Ondansetron HCl (Zofran Injection) 4 mg IVPUSH Q4H-IV [facility] Last Admin: 11/02/17 13:43 Dose: 4 mg Oxycodone HCl (Roxicodone -) 5 mg PO Q4H PRN PRN Reason: PAIN LEVEL 4 - 6 - Objective Vital Signs: Vital Signs Temperature 98.8 F 11/02/17 10:00 Pulse Rate 92 H 11/02/17 10:00 Respiratory Rate 20 11/02/17 10:00 Blood Pressure 148/74 11/02/17 10:00 O2 Sat by Pulse Oximetry (%) 99 11/02/17 10:00 Constitutional: Yes: Calm Eyes: Yes: Conjunctiva Clear HENT: Yes: Atraumatic Neck: Yes: Supple Cardiovascular: Yes: S1, S2 Respiratory: Yes: CTA Bilaterally Gastrointestinal: Yes: Soft, Abdomen, Obese Genitourinary: Yes: WNL Musculoskeletal: Yes: WNL Edema: Yes Edema: LLE: 1+, RLE: 1+ Integumentary: Yes: Venous Stasis Changes Neurological: Yes: Oriented Psychiatric: Yes: Oriented Labs: CBC, BMP 11/01/17 07:27 11/02/17 05:30 Problem List - Problems (1) CKD (chronic kidney disease) Code(s): N18.9 - CHRONIC KIDNEY DISEASE, UNSPECIFIED (2) REBEKAH (acute kidney injury) Code(s): N17.9 - ACUTE KIDNEY FAILURE, UNSPECIFIED (3) Hyperkalemia Code(s): E87.5 - HYPERKALEMIA (4) BMI 50.0-59.9, adult Code(s): Z68.43 - BODY MASS INDEX (BMI) 50-59.9 , ADULT (5) Diabetes mellitus Code(s): E11.9 - TYPE 2 DIABETES MELLITUS WITHOUT COMPLICATIONS Qualifiers: Diabetes mellitus type: type 2 Diabetes mellitus termite control technician insulin use: unspecified termite control technician insulin use status Diabetes mellitus complication status : with unspecified complications Qualified Code(s): E11.8 - Type 2 diabetes mellitus with unspecified complications (6) Hypercholesteremia Code(s): E78.00 - PURE HYPERCHOLESTEROLEMIA, UNSPECIFIED (7) Hypertension Code(s): I10 - ESSENTIAL (PRIMARY) HYPERTENSION Qualifiers: Hypertension type: unspecified Qualified Code(s): I10 - Essential (primary ) hypertension (8) Morbid (severe) obesity due to excess calories Code(s): E66.01 - MORBID (SEVERE) OBESITY DUE TO EXCESS CALORIES Assessment/Plan Current Medications Generic Name Dose Route Start Last Admin Trade Name Freq PRN Reason Stop Dose Admin Amlodipine Besylate 10 mg 11/01/17 10:00 11/02/17 09:43 Norvasc - PO 10 mg DAILY [facility] Administration Enoxaparin Sodium 40 mg 10/30/17 22:00 11/02/17 09:43 Lovenox - SQ 40 mg BID [facility] Administration Famotidine/Sodium Chloride 20 mg in 50 mls @ 100 mls/hr 10/30/17 22:00 09:44 Pepcid 20 Mg Premixed Ivpb - IVPB 100 mls/hr BID [facility] Administration Insulin Aspart 1 vial 10/30/17 18:00 11/02/17 11:27 Novolog Vial Sliding Scale - SQ Not Given TIDAC [facility] Protocol Insulin Aspart 30 units 11/01/17 07:00 Novolog Vial SQ AM [facility] Insulin Detemir 50 units 11/01/17 07:00 11/02/17 06:16 Levemir Vial SQ 50 units DAILY@0700 [facility] Administration Levothyroxine Sodium 150 mcg 11/01/17 07:00 11/02/17 06:15 Synthroid - PO 150 mcg AM [facility] Administration Metoclopramide HCl 10 mg 10/30/17 18:00 11/02/17 09:44 Reglan Injection - IVPUSH 10 mg Q6H-IV [facility] Administration Metoprolol Succinate 150 mg 11/02/17 10:00 11/02/17 09:43 Toprol Xl - PO 150 mg DAILY [facility] Administration Morphine Sulfate 4 mg 10/30/17 17:54 11/02/17 01:44 Morphine Sulfate IVPUSH 4 mg Q4H PRN Administration PAIN LEVEL 6-10 Non-Formulary Medication 1,000 mg 10/31/17 12:45 Metformin Hcl [Glucophage] PO DAILY [facility] Ondansetron HCl 4 mg 10/30/17 18:00 11/02/17 13:43 Zofran Injection IVPUSH 4 mg Q4H-IV [facility] Administration Oxycodone HCl 5 mg 10/31/17 12:33 Roxicodone - PO Q4H PRN PAIN LEVEL 4 - 6 Impression 1. CKD 2. REBEKAH 3. morbid obesity 4. s/p gastric sleeve 5. DM 6. HTN 7. hypothyroidism 8. hyperkalemia 9. 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
[2017-11-02] MEDS: oxyCODONE HCL 5 MG TABLET PO PRN (20:26)
[2017-11-03] MEDS: METOCLOPRAMIDE HCL INJECTION 10 MG/2 ML VIAL IVPUSH SCH ×2 (02:28→10:11)
[2017-11-03] MEDS: ONDANSETRON 4 MG/2 ML VIAL IVPUSH SCH ×3 (02:28→10:11)
[2017-11-03] MEDS: oxyCODONE HCL 5 MG TABLET PO PRN (02:47)
[2017-11-03 04:21] VITALS: BMI 59.5
[2017-11-03] MEDS: INSULIN SLIDING SCALE (NOVOLOG) 1 VIAL SQ SCH ×2 (06:35→12:47)
[2017-11-03] MEDS: INSULIN (LEVEMIR) 100 UNITS/ML UNITS SQ SCH (06:35)
[2017-11-03] MEDS: LEVOTHYROXINE NA 150 MCG TABLET PO SCH (06:36)
[2017-11-03 07:21] VITALS: BP 173/86; PULSE 86; TEMP 98.8
[2017-11-03 07:45] LABS: ANION GAP 10 MMOL/L (8-16); BLOOD UREA NITROGEN 20 mg/dL (7-18); CALCIUM 8.9 mg/dL (8.5-10.1); CHLORIDE 105 mmol/L (98-107); CO2 24 mmol/L (21-32); CREATININE 1.5 mg/dL (0.55-1.3); GLUCOSE,RANDOM 83 mg/dL (74-106); POTASSIUM 4.1 mmol/L (3.5-5.1); SODIUM 139 mmol/L (136-145)
[2017-11-03] MEDS: ENOXAPARIN NA (PORCINE) 40 MG/0.4 ML DISP.SYRIN SQ SCH (10:16)
[2017-11-03] MEDS: amLODIPine BESYLATE 10 MG TABLET (FP) PO SCH (10:16)
[2017-11-03] MEDS: FAMOTIDINE 20 MG/50 ML IVPB 20 MG/50 ML MG IVPB SCH (10:17)
--- NOTE | 2017-11-03 11:47 | PN ---
Progress Note, Physician Chief Complaint: Postop in no apparent distress History of Present Illness: 47 year old female with a pmhx of DM, obesity, CKD, and htn who is s/p gastric sleeve. Post op had elevated Cr 2.0 and htn. Denies any chest pain. No acute sob. No pnd or orthopnea. Trace LE edema. No palpitations. Says bp usually high as an outpatient. Losartan/hctz was stopped by renal team given Cr and also given some IVF's Restart on amlodipine increased to 10mg and metoprolol xl 100mg - Current Medication List Current Medications: Active Medications Amlodipine Besylate (Norvasc -) 10 mg PO DAILY [facility] Last Admin: 11/03/17 10:16 Dose: 10 mg Enoxaparin Sodium (Lovenox -) 40 mg SQ BID [facility] Last Admin: 11/03/17 10:16 Dose: 40 mg Famotidine/Sodium Chloride (Pepcid 20 Mg Premixed Ivpb -) 20 mg in 50 mls @ 100 mls/hr IVPB BID [facility] Last Admin: 11/03/17 10:17 Dose: 100 mls/hr Insulin Aspart (Novolog Vial Sliding Scale -) 1 vial SQ TIDAC [facility]; Protocol Last Admin: 11/03/17 06:35 Dose: Not Given Insulin Aspart (Novolog Vial) 30 units SQ AM PAULA Insulin Detemir (Levemir Vial) 50 units SQ DAILY@0700 [facility] Last Admin: 11/03/17 06:35 Dose: Not Given Levothyroxine Sodium (Synthroid -) 150 mcg PO AM [facility] Last Admin: 11/03/17 06:36 Dose: 150 mcg Metoclopramide HCl (Reglan Injection -) 10 mg IVPUSH Q6H-IV [facility] Last Admin: 11/03/17 10:11 Dose: Not Given Metoprolol Succinate (Toprol Xl -) 150 mg PO DAILY [facility] Last Admin: 11/03/17 10:16 Dose: 150 mg Ondansetron HCl (Zofran Injection) 4 mg IVPUSH Q4H-IV [facility] Last Admin: 11/03/17 10:11 Dose: Not Given Oxycodone HCl (Roxicodone -) 5 mg PO Q4H PRN PRN Reason: PAIN LEVEL 4 - 6 Last Admin: 11/03/17 02:47 Dose: 5 mg - Objective Vital Signs: Vital Signs Temperature 98.8 F 11/03/17 06:00 Pulse Rate 86 11/03/17 06:00 Respiratory Rate 19 11/03/17 06:00 Blood Pressure 173/86 H 11/03/17 06:00 O2 Sat by Pulse Oximetry (%) 98 11/02/17 22:00 Constitutional: Yes: No Distress, Calm, Obese Eyes: Yes: WNL, Conjunctiva Clear, EOM Intact HENT: Yes: WNL, Atraumatic, Normocephalic Neck: Yes: WNL, Supple, Trachea Midline Cardiovascular: Yes: WNL, Regular Rate and Rhythm, S1, S2 Respiratory: Yes: WNL, Regular, CTA Bilaterally Gastrointestinal: Yes: Normal Bowel Sounds, Soft, Abdomen, Obese ...Rectal Exam: Yes: Deferred Genitourinary: Yes: WNL Musculoskeletal: Yes: WNL Extremities: Yes: WNL Edema: No Peripheral Pulses: Left Radial: 2+, Right Radial: 2+, Left Doralis Pedis: 2+, Right Dorsalis Pedis: 2+, Left Femoral: 2+, Right Femoral: 2+ Neurological: Yes: WNL, Alert, Oriented ...Motor Strength: WNL Psychiatric: Yes: WNL Labs: CBC, BMP 11/01/17 07:27 11/03/17 05:30 Assessment/Plan 47 year old female with a pmhx of DM, obesity, CKD, and htn who is s/p gastric sleeve. Post op had elevated Cr 2.0 and htn. Denies any chest pain. No acute sob. No pnd or orthopnea. Trace LE edema. No palpitations. Says bp usually high as an outpatient. Losartan/hctz was stopped by renal team given Cr and also given some IVF's Restart on amlodipine increased to 10mg and metoprolol xl 100mg The patient continues to recover quite well. She is completely asymptomatic. No events noted on telemetry. The blood pressure remains elevated. There is no need for further cardiac workup at this point. Please arrange for an outpatient appointment with within 10 days of discharge. Please do not hesitate to call us PRN.
--- NOTE | 2017-11-03 14:09 | PN ---
Progress Note (short form) - Note Progress Note: covering dr quevedo problems 1. CKD 2. REBEKAH 3. morbid obesity 4. s/p gastric sleeve 5. DM 6. HTN 7. hypothyroidism 8. hyperkalemia 9. ovarian cyst Current Medications Amlodipine Besylate (Norvasc -) 10 mg PO DAILY [facility] Last Admin: 11/03/17 10:16 Dose: 10 mg Enoxaparin Sodium (Lovenox -) 40 mg SQ BID [facility] Last Admin: 11/03/17 10:16 Dose: 40 mg Famotidine/Sodium Chloride (Pepcid 20 Mg Premixed Ivpb -) 20 mg in 50 mls @ 100 mls/hr IVPB BID [facility] Last Admin: 11/03/17 10:17 Dose: 100 mls/hr Insulin Aspart (Novolog Vial Sliding Scale -) 1 vial SQ TIDAC [facility]; Protocol Last Admin: 11/03/17 12:47 Dose: Not Given Insulin Aspart (Novolog Vial) 30 units SQ AM [facility] Insulin Detemir (Levemir Vial) 50 units SQ DAILY@0700 [facility] Last Admin: 11/03/17 06:35 Dose: Not Given Levothyroxine Sodium (Synthroid -) 150 mcg PO AM [facility] Last Admin: 11/03/17 06:36 Dose: 150 mcg Metoclopramide HCl (Reglan Injection -) 10 mg IVPUSH Q6H-IV [facility] Last Admin: 11/03/17 10:11 Dose: Not Given Metoprolol Succinate (Toprol Xl -) 150 mg PO DAILY [facility] Last Admin: 11/03/17 10:16 Dose: 150 mg Ondansetron HCl (Zofran Injection) 4 mg IVPUSH Q4H-IV [facility] Last Admin: 11/03/17 10:11 Dose: Not Given Last Vital Signs Temp Pulse Resp BP Pulse Ox 98.8 F 86 19 173/86 H 98 11/03/17 06:00 11/03/17 06:00 11/03/17 06:00 11/03/17 06:00 11/02/17 22:00 in nad CBC, BMP 11/01/17 07:27 11/03/17 05:30 CKD sp REBEKAH on CKD renal function seems at baseline being discharged today agree with discharge
--- NOTE | 2017-11-03 14:17 | PN ---
Progress Note (short form) - Note Progress Note: POD 4 No pain No nausea Tolerating clears Vital Signs Period Temp Pulse Resp BP Sys/Falcon Pulse Ox Last 24 Hr 98.6 F-99.4 F 86-100 18-20 164-185/82-89 98-98 CBC, BMP 11/01/17 07:27 11/03/17 05:30 Seen by Cardiology and Nephrology- cleared to go home Will follow as outpatient for BP control Needs to follow up with primary and cardiology in next 48-72 hours to monitor blood pressure Problem List - Problems (1) Morbid (severe) obesity due to excess calories Code(s): E66.01 - MORBID (SEVERE) OBESITY DUE TO EXCESS CALORIES (2) BMI 50.0-59.9, adult Code(s): Z68.43 - BODY MASS INDEX (BMI) 50-59.9 , ADULT (3) Diabetes mellitus Code(s): E11.9 - TYPE 2 DIABETES MELLITUS WITHOUT COMPLICATIONS Qualifiers: Diabetes mellitus type: type 2 Diabetes mellitus roasterman insulin use: unspecified roasterman insulin use status Diabetes mellitus complication status : with unspecified complications Qualified Code(s): E11.8 - Type 2 diabetes mellitus with unspecified complications (4) Sleep apnea with use of continuous positive airway pressure (CPAP) Code(s): G47.30 - SLEEP APNEA, UNSPECIFIED (5) Hypertension Code(s): I10 - ESSENTIAL (PRIMARY) HYPERTENSION Qualifiers: Hypertension type: unspecified Qualified Code(s): I10 - Essential (primary ) hypertension (6) Hypercholesteremia Code(s): E78.00 - PURE HYPERCHOLESTEROLEMIA, UNSPECIFIED
== END 2017-11-03 15:34 | disposition home or self-care (01) | DRG 403 ==
LOC: JSAMEDAYSX 09:19 → J4W 22:26
PROVIDERS: ADMIT Surgery; ATTEND Surgery
PROC: 0DJ08ZZ Inspection of Upper Intestinal Tract, Via Natural or Artificial Opening Endoscopic (ICD-10-PCS; 2017-10-30)
PROC: 0FB24ZX Excision of Left Lobe Liver, Percutaneous Endoscopic Approach, Diagnostic (ICD-10-PCS; 2017-10-30)
PROC: 0DB64Z3 Excision of Stomach, Percutaneous Endoscopic Approach, Vertical (ICD-10-PCS; principal; 2017-10-30 10:00)
DX: E66.01 Morbid (severe) obesity due to excess calories (principal); Z68.43 Body mass index [BMI] 50.0-59.9, adult; E78.5 Hyperlipidemia, unspecified; J44.9 Chronic obstructive pulmonary disease, unspecified; M54.5 Low back pain; E03.9 Hypothyroidism, unspecified; G47.30 Sleep apnea, unspecified; E87.5 Hyperkalemia; N17.9 Acute kidney failure, unspecified; I12.9 Hypertensive chronic kidney disease with stage 1 through stage 4 chronic kidney disease, or unspecified chronic kidney disease; E11.22 Type 2 diabetes mellitus with diabetic chronic kidney disease; N18.9 Chronic kidney disease, unspecified; N83.209 Unspecified ovarian cyst, unspecified side; R16.0 Hepatomegaly, not elsewhere classified
CPT/HCPCS: 36415; 74241-TC-FY; 76775-TC; 76856-TC; 80048; 80053; 81003; 81015; 82436; 82570; 82962; 84133; 84156; 84300; 84703; 85025; 85027; 86850; 86900; 86901; 88307-TC; 94010; 94760; J0131; J7030

== ENCOUNTER 2018-11-15 09:35 | Inpatient (IN) | payer OTHER ==
[2018-11-15] MEDS ORDERED: FUROSEMIDE 40 MG/4 ML INJECTABLE VIAL IVPUSH ONE (09:52)
[2018-11-15] MEDS ORDERED: DEXAMETHASONE SOD PHOSPHATE 10 MG/1 ML VIAL ONE (10:02)
[2018-11-15] MEDS ORDERED: ALBUTEROL SO4 0.083% IH SOL 2.5 MG/3 ML VIAL.NEB. NEB ONE (10:02)
[2018-11-15] MEDS: NITROGLYCERIN 25MG/D5W 250ML 25 MG/250 ML ML IVPB SCH (10:12)
--- NOTE | 2018-11-15 10:13 | PDOC ---
Documentation entered by Ameena Vaughn SCRIBE, acting as scribe for Rafy Sun MD. Rafy Sun MD: This documentation has been prepared by the Johana martin Adrianna, SCRIBE, under my direction and personally reviewed by me in its entirety. I confirm that the documentation accurately reflects all work, treatment, procedures, and medical decision making performed by me. History of Present Illness - General Stated Complaint: SHORTNESS OF BREATH Time Seen by Provider: 11/15/18 09:49 - History of Present Illness Initial Comments: The patient is a 48 year old female, with a significant PMH of HTN, HLD, COPD ( no history of intubations, has been admitted to ICU in the past), IDDM, CKD, REBEKAH , morbid obesity, hyperkalemia, ovarian cyst, hypothyroidism, sleep apnea ( wears CPAP at night at home), and chronic low back pain, who presents to the ED [facility] for evaluation of SOB for 2 days. Patient reports feeling increasing SOB over the past two days, and endorses an associated cough and orthopnea (states she cannot lie flat as shell begin coughing). She notes having bilateral lower extremity edema, but notes she has had this for a while and is currently on Lasix 40mg daily. Patient denies any chest pain or fever, but endorses chills. Per EMS, pt was not moving air well upon their initial eval. Duo nebs, Decadron , and Nitro were administered, and pt was placed on CPAP, with some relief of symptoms. Patient reports feeling slightly less SOB upon arrival to the ED. Allergies: NKA, NKDA Surgical History: Gastric sleeve Social History: +Social EtOH use. Denies tobacco or illicit drug use PCP: Dr. Levine Past History - Past Medical History Allergies/Adverse Reactions: Allergies Allergy/AdvReac Type Severity Reaction Status Date / Time No Known Allergies Allergy Verified 10/30/17 10:11 Home Medications: Ambulatory Orders Levothyroxine [Synthroid -] 150 mcg PO DAILY 04/20/17 Aspirin [ASA -] 81 mg PO DAILY 10/29/17 Atorvastatin Calcium 20 mg PO DAILY 10/29/17 Insulin Aspart [Novolog] 30 unit SQ DAILY 10/29/17 Insulin Degludec [Tresiba Flextouch U-100] 50 unit SQ DAILY 10/29/17 Metformin HCl [Glucophage] 1,000 mg PO DAILY 10/29/17 Famotidine [Pepcid] 20 mg PO BID #60 tablet 10/30/17 Oxycodone HCl/Acetaminophen [Percocet 5-325 mg Tablet] 1 - 2 tab PO Q6H #28 tab MDD 4 10/30/17 Amlodipine Besylate [Norvasc -] 5 mg PO DAILY 10/31/17 Furosemide [Lasix] 40 mg PO BID 10/31/17 Losartan 50Mg/Hctz 12.5MG [Hyzaar -] 1 tab PO DAILY 10/31/17 Ramipril 5 mg PO DAILY 10/31/17 Anemia: No Asthma: Yes COPD: Yes Dementia: No Diabetes: Yes GI Disorders: Yes HTN: Yes Hypercholesterolemia: Yes Seizures: No Thyroid Disease: Yes - Psycho Social/Smoking Cessation Hx Smoking History: Never smoked Hx Alcohol Use: Yes (social) Drug/Substance Use Hx: No Substance Use Type: Alcohol Hx Substance Use Treatment: No Review of Systems - Review of Systems Comments:: GENERAL/CONSTITUTIONAL: +Chills. No fever. No weakness. HEAD, EYES, EARS, NOSE AND THROAT: No change in vision. No ear pain or discharge. No sore throat. CARDIOVASCULAR: +SOB. No chest pain, no loss of consciousness RESPIRATORY: +Cough. +Orthopnea. +Conversational dyspnea. No wheezing or hemoptysis. GASTROINTESTINAL: No nausea, vomiting, diarrhea or constipation. GENITOURINARY: No dysuria, frequency, or change in urination. MUSCULOSKELETAL: +Bilateral lower extremity edema. No joint or muscle pain. No neck or back pain. SKIN: No rash NEUROLOGIC: No vertigo, no change in strength/sensation. ENDOCRINE: No increased thirst. No abnormal weight change. HEMATOLOGIC/LYMPHATIC: No anemia, easy bleeding, or history of blood clots. ALLERGIC/IMMUNOLOGIC: No hives or skin allergy. *Physical Exam - Physical Exam Comments: GENERAL: Awake, alert, and fully oriented, in moderate respiratory distress. HEAD: No signs of trauma EYES: PERRLA, EOMI, sclera anicteric, conjunctiva clear ENT: Auricles normal inspection, hearing grossly normal, nares patent, oropharynx clear without exudates. Moist mucosa NECK: Nontender, no stepoffs, Normal ROM, supple, no lymphadenopathy, JVD, or masses LUNGS: + diminished breath sounds bilaterally. No audible wheezes or crackles HEART: Regular rate and rhythm, normal S1 and S2, no murmurs, rubs or gallops ABDOMEN: Soft, nontender, normoactive bowel sounds. No guarding, no rebound. No masses EXTREMITIES: +2 bilateral lower extremity edema. Normal range of motion. No clubbing or cyanosis. No cords, erythema, or tenderness NEUROLOGICAL: Cranial nerves II through XII intact. 5/5 strength and sensation in all extremities, Normal speech, normal gait, normal cerebellar function SKIN: Warm, Dry, normal turgor, no rashes or lesions noted. Heart Score/ECG Review - ECG Impressions Comment:: 11/15/18 10:10 NSR, no RANDOLPH/STDs, TWI in aVL, intervals wnl, rate 81 ED Treatment Course - LABORATORY CBC & Chemistry Diagram: 11/15/18 10:05 11/15/18 10:05 - RADIOLOGY Radiology Studies Ordered: Category Date Time Status CHEST X-RAY PORTABLE* [RAD] Stat Radiology 11/15/18 09:50 Ordered Medical Decision Making - Medical Decision Making 11/15/18 10:11 48 F with SOB. Poorly audible breath sounds bilaterally due to body habitus. Suspect volume overload/CHF, as pt with significant BLE edema and orthopnea. Vitals initially notable for HTN. Also consider COPD given previous history, though no wheezing noted on exam. - Labs, trop, BNP - CXR - BiPAP - Nebulizers - Lasix - Nitro gtt PRN 11/15/18 10:14 CXR shows diffuse infiltrates, likely acute pulm edema Lasix administered Continue BiPAP BP now normalized, will hold nitro gtt 11/15/18 10:30 VBG notable for acidosis and hypercapnea, likely concomitant COPD flare Will continue nebs Pt received steroids from EMS 11/15/18 11:02 Labs notable for REBEKAH Cr 2.6 Trop negative BNP [address] Kaufman Discharge - Discharge Information Problems reviewed: Yes Clinical Impression/Diagnosis: CHF (congestive heart failure), COPD (chronic obstructive pulmonary disease), SOB (shortness of breath) - Admission Yes - Follow up/Referral Referrals: Samuel Levine [Primary Care Provider] - - Patient Discharge Instructions - Post Discharge Activity
[2018-11-15] MEDS ORDERED: FUROSEMIDE 40 MG/4 ML INJECTABLE VIAL ONE ×2 (10:14→14:26)
[2018-11-15 10:19] LABS: VENOUS PC02 60.4 mmHg (38-52); VENOUS PH 7.22 (7.31-7.41)
[2018-11-15 10:20] LABS: VENOUS PO2 < 49 mmHg (28-48)
[2018-11-15 10:24] LABS: BASO % 0.6 % (0-2.0); EOS % 0.2 % (0-4.5); HEMATOCRIT 33.3 % (32.4-45.2); HEMOGLOBIN 10.8 GM/dL (10.7-15.3); LYMPH % 22.3 % (8-40); MCH 28.6 pg (25.7-33.7); MCHC 32.3 g/dl (32.0-36.0); MEAN CELL VOLUME 88.5 fl (80-96); MONO % 8.2 % (3.8-10.2); NEUT % 68.7 % (42.8-82.8); PLATELET COUNT 235 K/MM3 (134-434); RBC 3.77 M/mm3 (3.60-5.2); RDW 15.3 % (11.6-15.6); WHITE BLOOD COUNT 9.6 K/mm3 (4.0-10.0)
[2018-11-15 10:32] LABS: INR 1.03 (0.83-1.09); PROTHROMBIN TIME (PATIENT) 12.2 SEC (9.7-13.0)
[2018-11-15] MEDS: ALBUTEROL SO4 2.5/IPRATROPIUM 0.5 INH SOL 3 ML VIAL.NEB. NEB SCH ×6 (10:36→20:01)
[2018-11-15] MEDS ORDERED: ALBUTEROL SO4 2.5/IPRATROPIUM 0.5 INH SOL 3 ML VIAL.NEB. NEB ONE ×2 (10:39→10:50)
[2018-11-15 10:40] LABS: N-TERMINAL BNP 3673.7 pg/ml (5-125)
[2018-11-15 10:41] LABS: ALBUMIN 3.1 g/dl (3.4-5.0); BILIRUBIN,TOTAL 0.4 mg/dL (0.2-1); BLOOD UREA NITROGEN 39.9 mg/dL (7-18); CALCIUM 8.7 mg/dL (8.5-10.1); CREATININE 2.6 mg/dL (0.55-1.3); POTASSIUM 4.5 mmol/L (3.5-5.1); TOT PROT 7.8 g/dl (6.4-8.2)
[2018-11-15 11:31] LABS: EPI CELLS 1.2 /HPF (0-5/HPF); HYALINE CASTS 2 /lpf (0-8); URINE APPEARANCE CLEAR; URINE BILIRUBIN NEGATIVE (NEGATIVE); URINE COLOR YELLOW; URINE GLUCOSE (UA) 1+ (NEGATIVE); URINE KETONE NEGATIVE (NEGATIVE); URINE LEUK ESTERASE NEGATIVE (NEGATIVE); URINE NITRITE NEGATIVE (NEGATIVE); URINE PROTEIN 3+ (NEGATIVE); URINE RBC 2 /hpf (0-4); URINE UROBILINOGEN 0.2 mg/dL (0.2-1.0); URINE WBC 1 /hpf (0-5)
--- NOTE | 2018-11-15 12:18 | HP ---
Admitting History and Physical - Primary Care Physician PCP: Julianna Chow I - Admission Chief Complaint: came in for shortness of breath for 2 days History of Present Illness: The patient is a 48 year old female, with a significant PMH of HTN, HLD, COPD ( no history of intubations, has been admitted to ICU in the past), IDDM, CKD, REBEKAH , morbid obesity, hyperkalemia, ovarian cyst, hypothyroidism, sleep apnea ( wears CPAP at night at home), and chronic low back pain, who [facility] for [facility] days. Patient reports feeling increasing SOB over the past two days, and endorses an associated cough and orthopnea (states she cannot lie flat as shell begin coughing). She notes having bilateral lower extremity edema, but notes she has had this for a while and is currently on Lasix 40mg daily. Patient denies any chest pain or fever, but endorses chills. Per EMS, pt was not moving air well upon their initial eval. Duo nebs, Decadron , and Nitro were administered, and pt was placed on CPAP, with some relief of symptoms. Patient reports feeling slightly less SOB upon arrival to the ED. in ER she got duonebs and 80mg of iv lasix and placed on bipap elevated BNP on labs 3673.7 History Source: Patient - Past Medical History Cardiovascular: Yes: HTN, Hyperlipdemia Pulmonary: Yes: COPD Renal/: Yes: Renal Inusuff ...LMP: 10/23/17 Musculoskeletal: Yes: Chronic low back pain Endocrine: Yes: Diabetes Mellitus, Hypothyroidism - Past Surgical History Past Surgical History: Yes: Bariatric Surgery - Smoking History Smoking history: Never smoked Have you smoked in the past 12 months: No - Alcohol/Substance Use Hx Alcohol Use: Yes (social) Home Medications - Allergies Allergies/Adverse Reactions: Allergies Allergy/AdvReac Type Severity Reaction Status Date / Time No Known Allergies Allergy Verified 10/30/17 10:11 - Home Medications Home Medications: Ambulatory Orders Levothyroxine [Synthroid -] 150 mcg PO DAILY 04/20/17 Aspirin [ASA -] 81 mg PO DAILY 10/29/17 Atorvastatin Calcium 20 mg PO DAILY 10/29/17 Insulin Aspart [Novolog] 30 unit SQ DAILY 10/29/17 Insulin Degludec [Tresiba Flextouch U-100] 50 unit SQ DAILY 10/29/17 Metformin HCl [Glucophage] 1,000 mg PO DAILY 10/29/17 Famotidine [Pepcid] 20 mg PO BID #60 tablet 10/30/17 Oxycodone HCl/Acetaminophen [Percocet 5-325 mg Tablet] 1 - 2 tab PO Q6H #28 tab MDD 4 10/30/17 Amlodipine Besylate [Norvasc -] 5 mg PO DAILY 10/31/17 Furosemide [Lasix] 40 mg PO BID 10/31/17 Losartan 50Mg/Hctz 12.5MG [Hyzaar -] 1 tab PO DAILY 10/31/17 Ramipril 5 mg PO DAILY 10/31/17 Physical Examination Vital Signs: Vital Signs Temperature 98.5 F 11/15/18 09:37 Pulse Rate 82 11/15/18 09:37 Respiratory Rate 22 H 11/15/18 09:37 Blood Pressure 158/96 11/15/18 09:37 O2 Sat by Pulse Oximetry (%) 100 11/15/18 09:45 Labs: CBC, BMP 11/15/18 10:05 11/15/18 10:05 Imaging - Results Chest X-ray: Report Reviewed (large heart and congestive changes) Problem List - Problems (1) CHF (congestive heart failure) Assessment/Plan: telemetry dailyweight iv lasix echo cardiology monitor renal fucton bipap to assist with work of breathing Code(s): I50.9 - HEART FAILURE, UNSPECIFIED (2) COPD (chronic obstructive pulmonary disease) Assessment/Plan: pulm bronchodilators Code(s): J44.9 - CHRONIC OBSTRUCTIVE PULMONARY DISEASE, UNSPECIFIED (3) SOB (shortness of breath) Assessment/Plan: see 1 Code(s): R06.02 - SHORTNESS OF BREATH (4) CKD (chronic kidney disease) Assessment/Plan: renal consult dr colon Code(s): N18.9 - CHRONIC KIDNEY DISEASE, UNSPECIFIED (5) Diabetes mellitus Assessment/Plan: bgm sliding scale [id number] endocrine Code(s): E11.9 - TYPE 2 DIABETES MELLITUS WITHOUT COMPLICATIONS Qualifiers: Diabetes mellitus type: type 2 (6) Hypothyroid Assessment/Plan: check tsh synthroid Code(s): E03.9 - HYPOTHYROIDISM, UNSPECIFIED (7) HTN (hypertension) Assessment/Plan: norvasc losartan Code(s): I10 - ESSENTIAL (PRIMARY) HYPERTENSION (8) HLD (hyperlipidemia) Assessment/Plan: statin lipid panel Code(s): E78.5 - HYPERLIPIDEMIA, UNSPECIFIED
[2018-11-15] MEDS: FUROSEMIDE 40 MG/4 ML INJECTABLE VIAL IVPUSH SCH (14:22)
--- NOTE | 2018-11-15 14:55 | ECHO ---
Name: ADEABA, OLIVE Exam:Adult Echocardiogram Study Date: 11/15/2018 01:45 PM Age: 48 yrs Reason For Study: LOOK AT LVEF Height: 65 in Weight: 230 lb BSA: 2.1 m2 MMode/2D Measurements & Calculations IVSd: 1.0 cm Ao root diam: 2.5 cm LVIDd: 4.2 cm LA dimension: 5.1 cm LVIDs: 3.0 cm LVPWd: 1.0 cm EDV(Teich): 76.6 ml LVOT diam: 2.0 cm ESV(Teich): 35.6 ml LAV (MOD-bp): 96.0 ml Doppler Measurements & Calculations MV E max raheem: 122.4 cm/sec Ao V2 max: 107.0 cm/sec MV A max raheem: 79.0 cm/sec Ao max P.6 mmHg MV E/A: 1.5 MV dec time: 0.16 sec CHALO(V,D): 1.7 cm2 LV V1 max P.3 mmHg MR max raheem: 449.6 cm/sec LV V1 max: 57.1 cm/sec MR max P.8 mmHg TR max raheem: 253.1 cm/sec PA V2 max: 100.4 cm/sec TR max P.7 mmHg PA max P.0 mmHg PI end-d raheem: 164.9 cm/sec Procedure The study was technically difficult with many images being suboptimal in quality. Left Ventricle Left ventricular systolic function is grossly normal. Right Ventricle The right ventricle is grossly normal size. The right ventricular systolic function is grossly normal . Atria The left atrium is mildly dilated. Mitral Valve There is mild to moderate mitral annular calcification. There is no mitral valve stenosis. There is m ild mitral regurgitation. Tricuspid Valve The tricuspid valve is not well visualized, but is grossly normal. There is mild tricuspid regurgitat ion. Right ventricular systolic pressure is normal. Aortic Valve The aortic valve opens well. No hemodynamically significant valvular aortic stenosis. Pulmonic Valve The pulmonic valve is not well seen, but is grossly normal. There is no pulmonic valvular stenosis. Great Vessels The aortic root is normal size. Pericardium/Pleura There is no pericardial effusion. Interpretation Summary The study was technically difficult with many images being suboptimal in quality. Left ventricular systolic function is grossly normal. The left atrium is mildly dilated. There is mild to moderate mitral annular calcification. There is mild mitral regurgitation. There is mild tricuspid regurgitation. Right ventricular systolic pressure is normal. There is no pericardial effusion. MD Holloway *Vamshi 11/15/2018 02:55 PM
--- NOTE | 2018-11-15 15:23 | CON.PULM ---
Consult Consult Specialty:: PULMONARY Referred by:: JOSEPH Reason for Consultation:: HYPOXIA - History of Present Illness Chief Complaint: SOB/COUGH/CHILLS History of Present Illness: The patient is a 48 year old female, with a significant PMH of HTN, HLD, COPD ( no history of intubations, has been admitted to ICU in the past), IDDM, CKD, REBEKAH , morbid obesity, hyperkalemia, ovarian cyst, hypothyroidism, sleep apnea ( wears CPAP at night at home), and chronic low back pain, who presents to the ED [facility] for evaluation of SOB for 2 days. Patient reports feeling increasing SOB over the past two days, and endorses an associated cough and orthopnea (states she cannot lie flat as shell begin coughing). She notes having bilateral lower extremity edema, but notes she has had this for a while and is currently on Lasix 40mg daily. Patient denies any chest pain or fever, but endorses chills. - History Source History Provided By: Patient, Family Member, Medical Record Limitations to Obtaining History: Clinical Condition - Past Medical History IT COMMUNICATIONS SPECIALIST: No: Alzheimer's Cardio/Vascular: Yes: HTN, Hyperlipdemia Pulmonary: Yes: COPD Renal/: Yes: Renal Inusuff ...LMP: 10/23/17 Musculoskeletal: Yes: Chronic low back pain Endocrine: Yes: Diabetes Mellitus, Hypothyroidism - Past Surgical History Past Surgical History: Yes: Bariatric Surgery - Alcohol/Substance Use Hx Alcohol Use: Yes (social) - Smoking History Smoking history: Never smoked Have you smoked in the past 12 months: No Home Medications - Allergies Allergies/Adverse Reactions: Allergies Allergy/AdvReac Type Severity Reaction Status Date / Time No Known Allergies Allergy Verified 10/30/17 10:11 - Home Medications Home Medications: Ambulatory Orders Levothyroxine [Synthroid -] 150 mcg PO DAILY 04/20/17 Aspirin [ASA -] 81 mg PO DAILY 10/29/17 Atorvastatin Calcium 20 mg PO DAILY 10/29/17 Insulin Aspart [Novolog] 30 unit SQ DAILY 10/29/17 Insulin Degludec [Tresiba Flextouch U-100] 50 unit SQ DAILY 10/29/17 Metformin HCl [Glucophage] 1,000 mg PO DAILY 10/29/17 Famotidine [Pepcid] 20 mg PO BID #60 tablet 10/30/17 Oxycodone HCl/Acetaminophen [Percocet 5-325 mg Tablet] 1 - 2 tab PO Q6H #28 tab MDD 4 10/30/17 Amlodipine Besylate [Norvasc -] 5 mg PO DAILY 10/31/17 Furosemide [Lasix] 40 mg PO BID 10/31/17 Losartan 50Mg/Hctz 12.5MG [Hyzaar -] 1 tab PO DAILY 10/31/17 Ramipril 5 mg PO DAILY 10/31/17 Review of Systems - Review of Systems Constitutional: denies: Fever Eyes: denies: Blurred Vision HENT: denies: Difficult Swallowing Neck: denies: Decreased ROM Cardiovascular: reports: Shortness of Breath. denies: Chest Pain Respiratory: reports: Cough, Exercise Intolerance, SOB, SOB on Exertion, Wheezing. denies: Hemoptysis Gastrointestinal: denies: Abdominal Pain Genitourinary: denies: Burning Physical Exam Vital Sings: Vital Signs Temperature 98.5 F 11/15/18 09:37 Pulse Rate 82 11/15/18 09:37 Respiratory Rate 22 H 11/15/18 09:37 Blood Pressure 158/96 11/15/18 09:37 O2 Sat by Pulse Oximetry (%) 100 11/15/18 09:45 Constitutional: Yes: Calm Eyes: Yes: EOM Intact HENT: Yes: Normocephalic Neck: Yes: Trachea Midline Cardiovascular: Yes: Regular Rate and Rhythm, S1 Respiratory: Yes: Diminished Gastrointestinal: Yes: Normal Bowel Sounds, Abdomen, Obese Edema: LLE: 1+, RLE: 1+ Integumentary: Yes: WNL Neurological: Yes: Alert Psychiatric: Yes: Alert Labs: CBC, BMP 11/15/18 10:05 11/15/18 10:05 REST REVIEWED Imaging - Results Chest X-ray: Report Reviewed, Image Reviewed Cat Scan: Report Reviewed, Image Reviewed Other: Report Reviewed Problem List - Problems (1) CHF (congestive heart failure) Code(s): I50.9 - HEART FAILURE, UNSPECIFIED (2) COPD (chronic obstructive pulmonary disease) Code(s): J44.9 - CHRONIC OBSTRUCTIVE PULMONARY DISEASE, UNSPECIFIED (3) SOB (shortness of breath) Code(s): R06.02 - SHORTNESS OF BREATH (4) REBEKAH (acute kidney injury) Code(s): N17.9 - ACUTE KIDNEY FAILURE, UNSPECIFIED (5) CKD (chronic kidney disease) Code(s): N18.9 - CHRONIC KIDNEY DISEASE, UNSPECIFIED (6) Diabetes mellitus Code(s): E11.9 - TYPE 2 DIABETES MELLITUS WITHOUT COMPLICATIONS Qualifiers: Diabetes mellitus type: type 2 (7) Morbid (severe) obesity due to excess calories Code(s): E66.01 - MORBID (SEVERE) OBESITY DUE TO EXCESS CALORIES (8) Sleep apnea with use of continuous positive airway pressure (CPAP) Code(s): G47.30 - SLEEP APNEA, UNSPECIFIED Assessment/Plan CONTINUE NIPPV HS AND PRN TITRATE O2 TO KEEP SAT GREATER THAN 90% TRIAL OF DIURETICS/MONITOR PARAMETERS CONSIDER RENAL/CARDIO CONSULTS DUONEBS TID/DVT PROPHYLAXSIS/GLYCEMIC/BP CONTROL WOULD HOLD STEROIDS FOR NOW EMPIRIC ANTIBIOTICS DEFER TO PRIMARY TEAM Justina ABREU MD
--- NOTE | 2018-11-15 15:38 | CONSULT ---
Consult Consult Specialty:: Nephrology Reason for Consultation:: REBEKAH - History of Present Illness Chief Complaint: shortness of breath History of Present Illness: Pt is a 48 year old female with pmhx of ckd, htn, hld, copd, dm, morbid obesity , hyperkalemia, ovarian cyst, back pain, and sleep apnea who presents to the ER with shortness of breath. She has history of CKD and follows with me. Her renal function has been worsening over the last year. She did not tolerated stew or arb secondary to hyperkalemia. She says that the shortness of breath has been progressive. She also complains of lower ext edema. She was on lasix 40 mg daily at home. 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 Cardio/Vascular: Yes: HTN, Hyperlipdemia Pulmonary: Yes: COPD Renal/: Yes: Renal Inusuff ...LMP: 10/23/17 Musculoskeletal: Yes: Chronic low back pain Endocrine: Yes: Diabetes Mellitus, Hypothyroidism - Past Surgical History Past Surgical History: Yes: Bariatric Surgery - Alcohol/Substance Use Hx Alcohol Use: Yes (social) - Smoking History Smoking history: Never smoked Have you smoked in the past 12 months: No Home Medications - Allergies Allergies/Adverse Reactions: Allergies Allergy/AdvReac Type Severity Reaction Status Date / Time No Known Allergies Allergy Verified 10/30/17 10:11 - Home Medications Home Medications: Ambulatory Orders Levothyroxine [Synthroid -] 150 mcg PO DAILY 04/20/17 Aspirin [ASA -] 81 mg PO DAILY 10/29/17 Atorvastatin Calcium 20 mg PO DAILY 10/29/17 Insulin Aspart [Novolog] 30 unit SQ DAILY 10/29/17 Insulin Degludec [Tresiba Flextouch U-100] 50 unit SQ DAILY 10/29/17 Metformin HCl [Glucophage] 1,000 mg PO DAILY 10/29/17 Famotidine [Pepcid] 20 mg PO BID #60 tablet 10/30/17 Oxycodone HCl/Acetaminophen [Percocet 5-325 mg Tablet] 1 - 2 tab PO Q6H #28 tab MDD 4 10/30/17 Amlodipine Besylate [Norvasc -] 5 mg PO DAILY 10/31/17 Furosemide [Lasix] 40 mg PO BID 10/31/17 Losartan 50Mg/Hctz 12.5MG [Hyzaar -] 1 tab PO DAILY 10/31/17 Ramipril 5 mg PO DAILY 10/31/17 Family Medical History Family History: Denies Review of Systems - Review of Systems Constitutional: reports: Malaise Eyes: reports: No Symptoms HENT: reports: No Symptoms Neck: reports: No Symptoms Cardiovascular: reports: Edema, Shortness of Breath Respiratory: reports: Cough, SOB on Exertion Gastrointestinal: reports: No Symptoms Genitourinary: reports: No Symptoms Musculoskeletal: reports: No Symptoms Integumentary: reports: No Symptoms Neurological: reports: No Symptoms Endocrine: reports: No Symptoms Hematology/Lymphatic: reports: No Symptoms Psychiatric: reports: No Symptoms Physical Exam Vital Signs: Vital Signs Temperature 98.5 F 11/15/18 09:37 Pulse Rate 82 11/15/18 09:37 Respiratory Rate 22 H 11/15/18 09:37 Blood Pressure 158/96 11/15/18 09:37 O2 Sat by Pulse Oximetry (%) 100 11/15/18 09:45 Constitutional: Yes: Calm Eyes: Yes: Conjunctiva Clear Neck: Yes: Supple Cardiovascular: Yes: S1, S2 Respiratory: Yes: On BiPap Gastrointestinal: Yes: Soft, Abdomen, Obese Renal/: Yes: WNL Musculoskeletal: Yes: WNL Edema: Yes Edema: LLE: 2+, RLE: 2+ Neurological: Yes: Oriented Psychiatric: Yes: Oriented Labs: CBC, BMP 11/15/18 10:05 11/15/18 10:05 Laboratory Tests 11/01/17 11/02/17 11/03/17 07:27 05:30 05:30 WBC Hgb Sodium Potassium Carbon Dioxide BUN Creatinine 1.8 H 1.7 H 1.5 H Urine Protein 11/15/18 11/15/18 11/15/18 10:05 10:05 10:50 WBC 9.6 Hgb 10.8 Sodium 140 Potassium 4.5 Carbon Dioxide 24 BUN 39.9 H Creatinine 2.6 H Urine Protein 3+ H Imaging - Results Chest X-ray: Report Reviewed Problem List - Problems (1) CHF (congestive heart failure) Code(s): I50.9 - HEART FAILURE, UNSPECIFIED (2) HLD (hyperlipidemia) Code(s): E78.5 - HYPERLIPIDEMIA, UNSPECIFIED (3) HTN (hypertension) Code(s): I10 - ESSENTIAL (PRIMARY) HYPERTENSION (4) CKD (chronic kidney disease) Code(s): N18.9 - CHRONIC KIDNEY DISEASE, UNSPECIFIED Assessment/Plan Current Medications Generic Name Dose Route Start Last Admin Trade Name Samreen PRN Reason Stop Dose Admin Albuterol/Ipratropium 1 amp 11/15/18 16:00 Duoneb - NEB RQID PAULA Aspirin 81 mg 11/16/18 10:00 Ecotrin - PO DAILY PAULA Atorvastatin Calcium 40 mg 11/15/18 22:00 Lipitor - PO HS PAULA Furosemide 40 mg 11/15/18 14:00 11/15/18 14:22 Lasix Injection - IVPUSH 40 mg BID@0600,1400 [facility] Administration Heparin Sodium (Porcine) 5,000 unit 11/15/18 22:00 Heparin - SQ BID PAULA Nitroglycerin/Dextrose 25 mg in 250 mls @ 6 mls/hr 11/15/18 10:00 11/15/18 10 :12 Nitroglycerin 25mg/D5w 250ml IVPB Not Given TITR PAULA 10 MCG/MIN Insulin Aspart 1 vial 11/15/18 16:30 Novolog Vial Sliding Scale - SQ ACHS [facility] Protocol Levothyroxine Sodium 150 mcg 11/16/18 07:00 Synthroid - PO DAILY@0700 [facility] Losartan Potassium 50 mg 11/16/18 10:00 Cozaar - PO DAILY [facility] Impression 1. CKD 2. REBEKAH 3. morbid obesity 4. hx of bariatric surgery 5. DM 6. HTN 7. hypothyroidism 8. ovarian cyst Plan - cont lasix - monitor renal function - monitor potassium on losartan, d/c if she develops hyperkalemia - lasix should help with potassium - monitor jockey agent daily - avoid nsiad or nephrotoxins
[2018-11-15] MEDS: INSULIN SLIDING SCALE (NOVOLOG) 1 VIAL SQ SCH ×2 (16:11→22:32)
--- NOTE | 2018-11-15 16:13 | CON.CARD ---
Consult - History of Present Illness History of Present Illness: This is a 48 year old female (sees Dr. Marley), with a significant PMH of HTN, HLD, COPD (no history of intubations, has been admitted to ICU in the past), IDDM, CKD, REBEKAH, morbid obesity, hyperkalemia, ovarian cyst, hypothyroidism, sleep apnea (wears CPAP at night at home), and chronic low back pain. She presents now from the ED with SOB, SIMEON, and orthopnea for 2 days associated with a dry cough. She is currently on Lasix 40mg daily but states that it has become less effective. In the ED she was placed on BiPAP and was given nebs and 80 mg of IV Lasix. 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 Cardio/Vascular: Yes: HTN, Hyperlipdemia Pulmonary: Yes: COPD Renal/: Yes: Renal Inusuff ...LMP: 10/23/17 Musculoskeletal: Yes: Chronic low back pain Endocrine: Yes: Diabetes Mellitus, Hypothyroidism - Past Surgical History Past Surgical History: Yes: Bariatric Surgery - Alcohol/Substance Use Hx Alcohol Use: Yes (social) - Smoking History Smoking history: Never smoked Have you smoked in the past 12 months: No Home Medications - Allergies Allergies/Adverse Reactions: Allergies Allergy/AdvReac Type Severity Reaction Status Date / Time No Known Allergies Allergy Verified 10/30/17 10:11 - Home Medications Home Medications: Ambulatory Orders Levothyroxine [Synthroid -] 150 mcg PO DAILY 04/20/17 Aspirin [ASA -] 81 mg PO DAILY 10/29/17 Atorvastatin Calcium 20 mg PO DAILY 10/29/17 Insulin Aspart [Novolog] 30 unit SQ DAILY 10/29/17 Insulin Degludec [Tresiba Flextouch U-100] 50 unit SQ DAILY 10/29/17 Metformin HCl [Glucophage] 1,000 mg PO DAILY 10/29/17 Famotidine [Pepcid] 20 mg PO BID #60 tablet 10/30/17 Oxycodone HCl/Acetaminophen [Percocet 5-325 mg Tablet] 1 - 2 tab PO Q6H #28 tab MDD 4 10/30/17 Amlodipine Besylate [Norvasc -] 5 mg PO DAILY 10/31/17 Furosemide [Lasix] 40 mg PO BID 10/31/17 Losartan 50Mg/Hctz 12.5MG [Hyzaar -] 1 tab PO DAILY 10/31/17 Ramipril 5 mg PO DAILY 10/31/17 Vital Signs: Vital Signs Temperature 98.5 F 11/15/18 09:37 Pulse Rate 82 11/15/18 09:37 Respiratory Rate 22 H 11/15/18 09:37 Blood Pressure 158/96 11/15/18 09:37 O2 Sat by Pulse Oximetry (%) 100 11/15/18 09:45 Constitutional: Yes: Well Nourished, Mild Distress Eyes: Yes: WNL HENT: Yes: WNL Neck: Yes: Trachea Midline Respiratory: Yes: Wheezes (Mild bilateral) Gastrointestinal: Yes: Soft Cardiovascular: Yes: Regular Rate and Rhythm Heart Sounds: Yes: S1, S2 Edema: LLE: 1+ (Brawny), RLE: 1+ (Brawny) Neurological: Yes: Alert, Oriented - Other Data Labs, Other Data: CBC, BMP 11/15/18 10:05 11/15/18 10:05 INR, PTT INR 1.03 (0.83-1.09) 11/15/18 10:05 Troponin, BNP 11/15/18 10:05 Troponin I < 0.02 B-Natriuretic Peptide 3673.7 H Troponin, BNP 11/15/18 10:05 Troponin I < 0.02 B-Natriuretic Peptide 3673.7 H Assessment/Plan 48 year old female (sees Dr. Marley), with a significant PMH of HTN, HLD, COPD (no history of intubations, has been admitted to ICU in the past), IDDM, CKD, REBEKAH, morbid obesity, hyperkalemia, ovarian cyst, hypothyroidism, sleep apnea ( wears CPAP at night at home), and chronic low back pain. She presents now from the ED with SOB, SIMEON, and orthopnea for 2 days associated with a dry cough. She is currently on Lasix 40mg daily but states that it has become less effective. In the ED she was placed on BiPAP and was given nebs and 80 mg of IV Lasix. BNP 3673.7 Repeat echocardiogram 11/15/18: TDS Mild LAE Mild to Mod MAC Mild MR Mild TR CHF Acute on chronic diastolic Lasix 40 mg IVSS BID Daily I's/O's/Wt's/Lytes BiPAP as needed Nebs PRN HTN/HLD Continue Lipitor/ASA/Losartan at home doses
[2018-11-15] MEDS: ATORVASTATIN CA 40 MG TABLET (FP) PO SCH (22:14)
[2018-11-15] MEDS: HEPARIN NA (PORCINE) 5,000 UNITS/ML 1ML VIAL SQ SCH (22:14)
--- NOTE | 2018-11-15 23:09 | CONSULT ---
Consult Consult Specialty:: ENDOCRINE Referred by:: DR.SABA CONNELL Reason for Consultation:: DM T2 - History of Present Illness Chief Complaint: difficulty breathing, and high sugars History of Present Illness: 48 year old female, with PMH of DMT 2,HTN, HLD, COPD, CKD, REBEKAH, morbid obesity , hyperkalemia, ovarian cyst, hypothyroidism, sleep apnea (wears CPAP at night at home), and chronic low back pain, who presented to ed for evaluation of SOB, cough,difficulty breathing unable to lay flat in bed. Patient reports feeling increasing SOB over past few days,not improving with inhalers,or oral medication.has long history of diabetes checks sugar at least twice a day, does not have control of diet or sugars.denies nausea vomiting or diarhea. 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 Cardio/Vascular: Yes: HTN, Hyperlipdemia Pulmonary: Yes: COPD Renal/: Yes: Renal Inusuff ...LMP: 10/23/17 Musculoskeletal: Yes: Chronic low back pain Endocrine: Yes: Diabetes Mellitus, Hypothyroidism - Past Surgical History Past Surgical History: Yes: Bariatric Surgery - Alcohol/Substance Use Hx Alcohol Use: Yes (social) - Smoking History Smoking history: Never smoked Have you smoked in the past 12 months: No Home Medications - Allergies Allergies/Adverse Reactions: Allergies Allergy/AdvReac Type Severity Reaction Status Date / Time No Known Allergies Allergy Verified 10/30/17 10:11 - Home Medications Home Medications: Ambulatory Orders Levothyroxine [Synthroid -] 150 mcg PO DAILY 04/20/17 Aspirin [ASA -] 81 mg PO DAILY 10/29/17 Atorvastatin Calcium 20 mg PO DAILY 10/29/17 Insulin Aspart [Novolog] 30 unit SQ DAILY 10/29/17 Insulin Degludec [Tresiba Flextouch U-100] 50 unit SQ DAILY 10/29/17 Metformin HCl [Glucophage] 1,000 mg PO DAILY 10/29/17 Famotidine [Pepcid] 20 mg PO BID #60 tablet 10/30/17 Oxycodone HCl/Acetaminophen [Percocet 5-325 mg Tablet] 1 - 2 tab PO Q6H #28 tab MDD 4 10/30/17 Amlodipine Besylate [Norvasc -] 5 mg PO DAILY 10/31/17 Furosemide [Lasix] 40 mg PO BID 10/31/17 Losartan 50Mg/Hctz 12.5MG [Hyzaar -] 1 tab PO DAILY 10/31/17 Ramipril 5 mg PO DAILY 10/31/17 Review of Systems - Review of Systems Constitutional: reports: Weakness Eyes: reports: Blurred Vision HENT: reports: No Symptoms Neck: reports: Swollen Glands Cardiovascular: reports: Shortness of Breath Respiratory: reports: Exercise Intolerance, Orthopnea, SOB on Exertion Gastrointestinal: reports: Bloating Genitourinary: reports: No Symptoms Musculoskeletal: reports: Back Pain, Extremity Pain, Joint Swelling, Muscle Pain , Muscle Cramps Integumentary: reports: No Symptoms Endocrine: reports: Unexplained Weight Gain Psychiatric: reports: Altered Sleep Pattern Physical Exam Vital Signs: Vital Signs Temperature 98.5 F 11/15/18 09:37 Pulse Rate 82 11/15/18 09:37 Respiratory Rate 22 H 11/15/18 09:37 Blood Pressure 158/96 11/15/18 09:37 O2 Sat by Pulse Oximetry (%) 98 11/15/18 17:25 Constitutional: Yes: Anxious Eyes: Yes: EOM Intact HENT: Yes: Normocephalic Neck: Yes: Trachea Midline Cardiovascular: Yes: Tachycardia Respiratory: Yes: On BiPap, Poor Air Entry, Tachypnea Gastrointestinal: Yes: Abdomen, Obese ...Rectal Exam: Yes: Deferred Renal/: Yes: WNL Musculoskeletal: Yes: Back Pain, Joint Swelling, Muscle Pain, Muscle Weakness Edema: RUE: Trace Integumentary: Yes: Onychomycosis Neurological: Yes: Alert, Oriented Labs: CBC, BMP 11/15/18 10:05 11/15/18 10:05 Problem List - Problems (1) Type 2 diabetes mellitus with other diabetic kidney complication Code(s): E11.29 - TYPE 2 DIABETES MELLITUS W OTH DIABETIC KIDNEY COMPLICATION (2) Type 2 diabetes mellitus with other diabetic kidney complication Code(s): E11.29 - TYPE 2 DIABETES MELLITUS W OTH DIABETIC KIDNEY COMPLICATION (3) Hypothyroid Code(s): E03.9 - HYPOTHYROIDISM, UNSPECIFIED (4) REBEKAH (acute kidney injury) Code(s): N17.9 - ACUTE KIDNEY FAILURE, UNSPECIFIED (5) BMI 50.0-59.9, adult Code(s): Z68.43 - BODY MASS INDEX (BMI) 50.0-59.9, ADULT Assessment/Plan Current Active Pro Current Active Problems CHF (congestive heart failure) (Acute) COPD (chronic obstructive pulmonary disease) (Acute) HLD (hyperlipidemia) (Acute) HTN (hypertension) (Acute) Hypothyroid (Acute) SOB (shortness of breath) (Acute) Type 2 diabetes mellitus with other diabetic kidney complication (Acute) Type 2 diabetes mellitus with other diabetic kidney complication (Acute) Abnormal Lab Results 11/15/18 11/15/18 11/15/18 10:05 10:05 10:05 VBG pH 7.22 L POC VBG pCO2 60.4 H POC VBG pO2 < 49 H VBG O2 Sat (Sonia) 50.6 L VBG Base Excess -4.7 L Chloride 109 H BUN 39.9 H Creatinine 2.6 H Random Glucose 210 H Creatine Kinase 216 H B-Natriuretic Peptide 3673.7 H Albumin 3.1 L Urine Protein Urine Glucose (UA) 11/15/18 10:50 VBG pH POC VBG pCO2 POC VBG pO2 VBG O2 Sat (Sonia) VBG Base Excess Chloride BUN Creatinine Random Glucose Creatine Kinase B-Natriuretic Peptide Albumin Urine Protein 3+ H Urine Glucose (UA) 1+ H Laboratory Tests 11/15/18 11/15/18 11/15/18 10:05 16:09 22:31 Sodium 140 Potassium 4.5 Chloride 109 H Carbon Dioxide 24 Anion Gap 8 BUN 39.9 H Creatinine 2.6 H Est GFR (CKD-EPI)NonAf 21.12 POC Glucometer 221 371 plan: levemir 50 units am levemir 30 units hs bgm qid novolog scale synthroid 150mcg daily. \ckh tsh free t4 hba1c
[2018-11-16] MEDS ORDERED: DEXTROSE 50%-WATER - 25 GM/50 ML VIAL IVPUSH ONE (06:14)
[2018-11-16] MEDS: LEVOTHYROXINE NA 150 MCG TABLET PO SCH (06:49)
[2018-11-16] MEDS: FUROSEMIDE 40 MG/4 ML INJECTABLE VIAL IVPUSH SCH ×2 (06:50→14:48)
[2018-11-16] MEDS ORDERED: INSULIN (LEVEMIR) 100 UNITS/ML UNITS SQ SCH ×2 (07:00→22:00)
[2018-11-16] MEDS: ALBUTEROL SO4 2.5/IPRATROPIUM 0.5 INH SOL 3 ML VIAL.NEB. NEB SCH ×4 (07:28→20:30)
[2018-11-16] MEDS: INSULIN SLIDING SCALE (NOVOLOG) 1 VIAL SQ SCH ×4 (07:44→21:44)
[2018-11-16 09:02] LABS: BASO % 0.2 % (0-2.0); HEMATOCRIT 29.9 % (32.4-45.2); HEMOGLOBIN 9.7 GM/dL (10.7-15.3); LYMPH % 24.7 % (8-40); MCH 28.6 pg (25.7-33.7); MCHC 32.5 g/dl (32.0-36.0); MEAN PLT VOLUME 10.2 fl (7.5-11.1); MONO % 10.4 % (3.8-10.2); NEUT % 64.7 % (42.8-82.8); PLATELET COUNT 222 K/MM3 (134-434); RDW 15.2 % (11.6-15.6); WHITE BLOOD COUNT 8.5 K/mm3 (4.0-10.0)
[2018-11-16 09:31] LABS: ALBUMIN 2.6 g/dl (3.4-5.0); ALK PHOS 90 U/L (45-117); ANION GAP 7 MMOL/L (8-16); BILIRUBIN,TOTAL 0.3 mg/dL (0.2-1); BLOOD UREA NITROGEN 48.5 mg/dL (7-18); CALCIUM 8.4 mg/dL (8.5-10.1); CHLORIDE 109 mmol/L (98-107); CHOLESTEROL 288 mg/dL (50-200); CO2 24 mmol/L (21-32); CREATININE 2.8 mg/dL (0.55-1.3); GLUCOSE,RANDOM 179 mg/dL (74-106); HDL CHOLESTEROL 41 mg/dL (40-60); LDL CHOLESTEROL (ONLY SJRH) 209 mg/dL (5-100); MAGNESIUM 1.9 mg/dL (1.8-2.4); N-TERMINAL BNP 2773.6 pg/ml (5-125); PHOSPHOROUS 3.7 mg/dL (2.5-4.9); POTASSIUM 4.4 mmol/L (3.5-5.1); SGOT/AST 17 U/L (15-37); SGPT/ALT 21 U/L (13-61); SODIUM 140 mmol/L (136-145); TOT PROT 6.9 g/dl (6.4-8.2); TRIGLYCERIDES 172 mg/dL (0-150)
--- NOTE | 2018-11-16 10:31 | PN ---
Progress Note, Physician Chief Complaint: less sob tele neg History of Present Illness: 48 year old female (sees Dr. Marley), with a significant PMH of HTN, HLD, COPD (no history of intubations, has been admitted to ICU in the past), IDDM, CKD, REBEKAH, morbid obesity, hyperkalemia, ovarian cyst, hypothyroidism, sleep apnea ( wears CPAP at night at home), and chronic low back pain. She presents now from the ED with SOB, SIMEON, and orthopnea for 2 days associated with a dry cough. She is currently on Lasix 40mg daily but states that it has become less effective. In the ED she was placed on BiPAP and was given nebs and 80 mg of IV Lasix. BNP 3673.7 Repeat echocardiogram 11/15/18: TDS Mild LAE Mild to Mod MAC Mild MR Mild TR - Current Medication List Current Medications: Active Medications Albuterol/Ipratropium (Duoneb -) 1 amp NEB RQID [facility] Last Admin: 11/16/18 07:28 Dose: 1 amp Aspirin (Ecotrin -) 81 mg PO DAILY [facility] Atorvastatin Calcium (Lipitor -) 40 mg PO HS [facility] Last Admin: 11/15/18 22:14 Dose: 40 mg Furosemide (Lasix Injection -) 40 mg IVPUSH BID@0600,1400 [facility] Last Admin: 11/16/18 06:50 Dose: 40 mg Heparin Sodium (Porcine) (Heparin -) 5,000 unit SQ BID [facility] Last Admin: 11/15/18 22:14 Dose: 5,000 unit Nitroglycerin/Dextrose (Nitroglycerin 25mg/D5w 250ml) 25 mg in 250 mls @ 6 mls/ hr IVPB TITR [facility] Last Admin: 11/15/18 10:12 Dose: Not Given Influenza Virus Vaccine Quadrival (Flulaval Quad [id number]) 60 mcg IM .ONCE ONE Stop: 11/16/18 11:01 Insulin Aspart (Novolog Vial Sliding Scale -) 1 vial SQ [facility]; Protocol Last Admin: 11/16/18 07:44 Dose: Not Given Insulin Detemir (Levemir Vial) 30 units SQ HS [facility] Insulin Detemir (Levemir Vial) 50 units SQ AM [facility] Last Admin: 11/16/18 07:44 Dose: Not Given Levothyroxine Sodium (Synthroid -) 150 mcg PO DAILY@0700 [facility] Last Admin: 11/16/18 06:49 Dose: 150 mcg Losartan Potassium (Cozaar -) 50 mg PO DAILY [facility] - Objective Vital Signs: Vital Signs Temperature 97.3 F L 11/16/18 06:00 Pulse Rate 93 H 11/16/18 06:00 Respiratory Rate 20 11/16/18 06:00 Blood Pressure 151/75 11/16/18 06:00 O2 Sat by Pulse Oximetry (%) 98 11/15/18 22:00 Constitutional: Yes: No Distress, Calm Eyes: Yes: Conjunctiva Clear, EOM Intact HENT: Yes: Atraumatic, Normocephalic Neck: Yes: Trachea Midline Cardiovascular: Yes: Regular Rate and Rhythm Respiratory: Yes: CTA Bilaterally Gastrointestinal: Yes: Normal Bowel Sounds, Soft Musculoskeletal: Yes: WNL Extremities: Yes: WNL Edema: Yes Edema: LLE: 1+, RLE: 1+ Peripheral Pulses WNL: Yes Labs: CBC, BMP 11/16/18 07:45 11/16/18 07:45 INR, PTT INR 1.03 (0.83-1.09) 11/15/18 10:05 Assessment/Plan 48 year old female (sees Dr. Marley), with a significant PMH of HTN, HLD, COPD (no history of intubations, has been admitted to ICU in the past), IDDM, CKD, REBEKAH, morbid obesity, hyperkalemia, ovarian cyst, hypothyroidism, sleep apnea ( wears CPAP at night at home), and chronic low back pain. She presents now from the ED with SOB, SIMEON, and orthopnea for 2 days associated with a dry cough. She is currently on Lasix 40mg daily but states that it has become less effective. In the ED she was placed on BiPAP and was given nebs and 80 mg of IV Lasix. BNP 3673.7 Repeat echocardiogram 11/15/18: TDS Mild LAE Mild to Mod MAC Mild MR Mild TR CHF Acute on chronic diastolic change Lasix to 40 mg PO BID tomorrow Daily I's/O's/Wt's/Lytes BiPAP as needed Nebs PRN dc telemetry. HTN/HLD Continue Lipitor/ASA/Losartan at home doses
[2018-11-16] MEDS: LOSARTAN POTASSIUM 50 MG TABLET (FP) PO SCH (10:41)
[2018-11-16] MEDS: ASPIRIN COATED 81 MG TABLET.EC PO SCH (10:41)
[2018-11-16] MEDS: HEPARIN NA (PORCINE) 5,000 UNITS/ML 1ML VIAL SQ SCH ×2 (10:41→21:43)
[2018-11-16] MEDS ORDERED: FLU VACCINE QUAD 60 MCG/0.5 ML (MDV 19-20) IM ONE (11:00)
--- NOTE | 2018-11-16 14:29 | PN ---
Progress Note (short form) - Note Progress Note: Awake and alert. NAD on NC O2. Used NIPPV. No CP. No acute events overnight. Intake & Output 11/13/18 11/14/18 11/15/18 11/16/18 23:59 23:59 23:59 23:59 Intake Total 410 Balance 410 Weight 322 lb 323 lb Last Vital Signs Temp Pulse Resp BP Pulse Ox 98.2 F 87 18 175/66 H 98 11/16/18 14:17 11/16/18 14:17 11/16/18 14:17 11/16/18 14:17 11/15/18 22:00 Active Medications Albuterol/Ipratropium (Duoneb -) 1 amp NEB RQID [facility] Last Admin: 11/16/18 12:03 Dose: 1 amp Aspirin (Ecotrin -) 81 mg PO DAILY [facility] Last Admin: 11/16/18 10:41 Dose: 81 mg Atorvastatin Calcium (Lipitor -) 40 mg PO HS [facility] Last Admin: 11/15/18 22:14 Dose: 40 mg Furosemide (Lasix Injection -) 40 mg IVPUSH BID@0600,1400 [facility] Last Admin: 11/16/18 06:50 Dose: 40 mg Heparin Sodium (Porcine) (Heparin -) 5,000 unit SQ BID [facility] Last Admin: 11/16/18 10:41 Dose: 5,000 unit Insulin Aspart (Novolog Vial Sliding Scale -) 1 vial SQ ACHS [facility]; Protocol Last Admin: 11/16/18 12:04 Dose: 5 units Insulin Detemir (Levemir Vial) 30 units SQ HS [facility] Insulin Detemir (Levemir Vial) 50 units SQ AM [facility] Last Admin: 11/16/18 07:44 Dose: Not Given Levothyroxine Sodium (Synthroid -) 150 mcg PO DAILY@0700 [facility] Last Admin: 11/16/18 06:49 Dose: 150 mcg Losartan Potassium (Cozaar -) 50 mg PO DAILY [facility] Last Admin: 11/16/18 10:41 Dose: 50 mg Constitutional: Yes: Mildly tachypneic at rest Eyes: Yes: EOM Intact HENT: Yes: Normocephalic Neck: Yes: Trachea Midline Cardiovascular: Yes: Regular Rate and Rhythm, S1 Respiratory: Yes: Bilateral rhonchi, no wheeze Gastrointestinal: Yes: Normal Bowel Sounds, Abdomen, Obese Edema: LLE: 1+, RLE: 1+ Integumentary: Yes: WNL Neurological: Yes: Alert Psychiatric: Yes: Alert Labs: Laboratory Results - last 24 hr 11/15/18 11/15/18 11/16/18 16:09 22:31 06:02 WBC RBC Hgb Hct MCV MCH MCHC RDW Plt Count MPV Absolute Neuts (auto) Neutrophils % Lymphocytes % Monocytes % Eosinophils % Basophils % Nucleated RBC % Sodium Potassium Chloride Carbon Dioxide Anion Gap BUN Creatinine Est GFR (CKD-EPI)AfAm Est GFR (CKD-EPI)NonAf POC Glucometer 221 371 30 Random Glucose Hemoglobin A1c % Calcium Phosphorus Magnesium Total Bilirubin AST ALT Alkaline Phosphatase Creatine Kinase Troponin I B-Natriuretic Peptide Total Protein Albumin Triglycerides Cholesterol Total LDL Cholesterol HDL Cholesterol TSH 11/16/18 11/16/18 11/16/18 06:09 07:07 07:45 WBC 8.5 RBC 3.40 L Hgb 9.7 L Hct 29.9 L MCV 88.0 MCH 28.6 MCHC 32.5 RDW 15.2 Plt Count 222 MPV 10.2 Absolute Neuts (auto) 5.5 Neutrophils % 64.7 Lymphocytes % 24.7 Monocytes % 10.4 H Eosinophils % 0.0 D Basophils % 0.2 Nucleated RBC % 0 Sodium Potassium Chloride Carbon Dioxide Anion Gap BUN Creatinine Est GFR (CKD-EPI)AfAm Est GFR (CKD-EPI)NonAf POC Glucometer 43 192 Random Glucose Hemoglobin A1c % Calcium Phosphorus Magnesium Total Bilirubin AST ALT Alkaline Phosphatase Creatine Kinase Troponin I B-Natriuretic Peptide Total Protein Albumin Triglycerides Cholesterol Total LDL Cholesterol HDL Cholesterol TSH 11/16/18 11/16/18 11/16/18 07:45 07:45 11:23 WBC RBC Hgb Hct MCV MCH MCHC RDW Plt Count MPV Absolute Neuts (auto) Neutrophils % Lymphocytes % Monocytes % Eosinophils % Basophils % Nucleated RBC % Sodium 140 Potassium 4.4 Chloride 109 H Carbon Dioxide 24 Anion Gap 7 L BUN 48.5 H Creatinine 2.8 H Est GFR (CKD-EPI)AfAm 22.38 Est GFR (CKD-EPI)NonAf 19.31 POC Glucometer 187 Random Glucose 179 H Hemoglobin A1c % 7.4 H Calcium 8.4 L Phosphorus 3.7 Magnesium 1.9 Total Bilirubin 0.3 AST 17 ALT 21 Alkaline Phosphatase 90 Creatine Kinase 134 Troponin I < 0.02 B-Natriuretic Peptide 2773.6 H Total Protein 6.9 Albumin 2.6 L Triglycerides 172 H Cholesterol 288 H Total LDL Cholesterol 209 H HDL Cholesterol 41 TSH 0.34 L Problem List - Problems (1) CHF (congestive heart failure) Code(s): I50.9 - HEART FAILURE, UNSPECIFIED (2) COPD (chronic obstructive pulmonary disease) Code(s): J44.9 - CHRONIC OBSTRUCTIVE PULMONARY DISEASE, UNSPECIFIED (3) SOB (shortness of breath) Code(s): R06.02 - SHORTNESS OF BREATH (4) REBEKAH (acute kidney injury) Code(s): N17.9 - ACUTE KIDNEY FAILURE, UNSPECIFIED (5) CKD (chronic kidney disease) Code(s): N18.9 - CHRONIC KIDNEY DISEASE, UNSPECIFIED (6) Diabetes mellitus Code(s): E11.9 - TYPE 2 DIABETES MELLITUS WITHOUT COMPLICATIONS Qualifiers: Diabetes mellitus type: type 2 (7) Morbid (severe) obesity due to excess calories Code(s): E66.01 - MORBID (SEVERE) OBESITY DUE TO EXCESS CALORIES (8) Sleep apnea with use of continuous positive airway pressure (CPAP) Code(s): G47.30 - SLEEP APNEA, UNSPECIFIED Assessment/Plan CONTINUE NIPPV HS AND PRN TITRATE O2 TO KEEP SAT GREATER THAN 90% DUONEBS TID DVT PROPHYLAXSIS GLYCEMIC CONTROL HOLD STEROIDS FOR NOW EMPIRIC ANTIBIOTICS PER PRIMARY TEAM DR LEE
[2018-11-16] MEDS: RAMIPRIL 5 MG CAPSULE (FP) PO SCH (14:48)
[2018-11-16] MEDS: HYDROCHLOROTHIAZIDE 12.5 MG CAPSULE (FP) PO SCH (14:48)
[2018-11-16] MEDS: NITROGLYCERIN 25MG/D5W 250ML 25 MG/250 ML ML IVPB SCH (14:52)
--- NOTE | 2018-11-16 16:11 | PN ---
Progress Note, Physician Chief Complaint: AWAKE ALERT FEELING BETTER TODAY ON 2LNC 02 SUPPORT NO FEVER/CHILLS - Current Medication List Current Medications: Active Medications Albuterol/Ipratropium (Duoneb -) 1 amp NEB RQID [facility] Last Admin: 11/16/18 12:03 Dose: 1 amp Aspirin (Ecotrin -) 81 mg PO DAILY [facility] Last Admin: 11/16/18 10:41 Dose: 81 mg Atorvastatin Calcium (Lipitor -) 40 mg PO HS [facility] Last Admin: 11/15/18 22:14 Dose: 40 mg Furosemide (Lasix Injection -) 40 mg IVPUSH BID@0600,1400 [facility] Last Admin: 11/16/18 14:48 Dose: 40 mg Heparin Sodium (Porcine) (Heparin -) 5,000 unit SQ BID [facility] Last Admin: 11/16/18 10:41 Dose: 5,000 unit Hydrochlorothiazide (Hctz -) 12.5 mg PO DAILY [facility] Last Admin: 11/16/18 14:48 Dose: 12.5 mg Insulin Aspart (Novolog Vial Sliding Scale -) 1 vial SQ [facility]; Protocol Last Admin: 11/16/18 12:04 Dose: 5 units Insulin Detemir (Levemir Vial) 30 units SQ HS [facility] Insulin Detemir (Levemir Vial) 50 units SQ AM [facility] Last Admin: 11/16/18 07:44 Dose: Not Given Levothyroxine Sodium (Synthroid -) 150 mcg PO DAILY@0700 [facility] Last Admin: 11/16/18 06:49 Dose: 150 mcg Losartan Potassium (Cozaar -) 50 mg PO DAILY [facility] Last Admin: 11/16/18 10:41 Dose: 50 mg Ramipril (Altace -) 5 mg PO DAILY [facility] Last Admin: 11/16/18 14:48 Dose: 5 mg - Objective Vital Signs: Vital Signs Temperature 98.2 F 11/16/18 14:17 Pulse Rate 87 11/16/18 14:17 Respiratory Rate 18 11/16/18 14:17 Blood Pressure 175/66 H 11/16/18 14:17 O2 Sat by Pulse Oximetry (%) 98 11/15/18 22:00 Constitutional: Yes: Mild Distress Eyes: Yes: WNL HENT: Yes: WNL Neck: Yes: WNL Cardiovascular: Yes: Regular Rate and Rhythm Respiratory: Yes: Diminished Gastrointestinal: Yes: Soft, Abdomen, Obese Genitourinary: Yes: WNL Edema: Yes Edema: LLE: Trace, RLE: Trace Integumentary: Yes: WNL Wound/Incision: Yes: Clean/Dry Neurological: Yes: WNL ...Motor Strength: WNL Psychiatric: Yes: WNL Labs: CBC, BMP 11/16/18 07:45 11/16/18 07:45 INR, PTT INR 1.03 (0.83-1.09) 11/15/18 10:05 Problem List - Problems (1) CHF (congestive heart failure) Code(s): I50.9 - HEART FAILURE, UNSPECIFIED (2) COPD (chronic obstructive pulmonary disease) Code(s): J44.9 - CHRONIC OBSTRUCTIVE PULMONARY DISEASE, UNSPECIFIED (3) HLD (hyperlipidemia) Code(s): E78.5 - HYPERLIPIDEMIA, UNSPECIFIED (4) HTN (hypertension) Code(s): I10 - ESSENTIAL (PRIMARY) HYPERTENSION (5) Hypothyroid Code(s): E03.9 - HYPOTHYROIDISM, UNSPECIFIED (6) SOB (shortness of breath) Code(s): R06.02 - SHORTNESS OF BREATH (7) Type 2 diabetes mellitus with other diabetic kidney complication Code(s): E11.29 - TYPE 2 DIABETES MELLITUS W OTH DIABETIC KIDNEY COMPLICATION (8) BMI 50.0-59.9, adult Code(s): Z68.43 - BODY MASS INDEX (BMI) 50.0-59.9, ADULT (9) Diabetes mellitus Code(s): E11.9 - TYPE 2 DIABETES MELLITUS WITHOUT COMPLICATIONS Qualifiers: Diabetes mellitus type: type 2 (10) Hypercholesteremia Code(s): E78.00 - PURE HYPERCHOLESTEROLEMIA, UNSPECIFIED (11) Hypertension Code(s): I10 - ESSENTIAL (PRIMARY) HYPERTENSION Qualifiers: Hypertension type: unspecified Qualified Code(s): I10 - Essential (primary ) hypertension (12) Morbid (severe) obesity due to excess calories Code(s): E66.01 - MORBID (SEVERE) OBESITY DUE TO EXCESS CALORIES (13) Sleep apnea with use of continuous positive airway pressure (CPAP) Code(s): G47.30 - SLEEP APNEA, UNSPECIFIED Assessment/Plan LASIX IV BID MONITOR IN/OUTS AND DAILY WEIGHTS NO NEED FOR ANTIBIOTICS AT THIS TIME BIPAP/PULM EVAL 02 SUPPORT WEIGHT LOSS D/W PATIENT TO DECREASE MORBIDITY ECHO REVIEWED CARDIOLOGY F/U
--- NOTE | 2018-11-16 18:18 | PN ---
Progress Note, Physician Chief Complaint: low bs this am likely appetite limited - Current Medication List Current Medications: Active Medications Albuterol/Ipratropium (Duoneb -) 1 amp NEB RQID [facility] Last Admin: 11/16/18 16:25 Dose: 1 amp Aspirin (Ecotrin -) 81 mg PO DAILY [facility] Last Admin: 11/16/18 10:41 Dose: 81 mg Atorvastatin Calcium (Lipitor -) 40 mg PO HS [facility] Last Admin: 11/15/18 22:14 Dose: 40 mg Furosemide (Lasix Injection -) 40 mg IVPUSH BID@0600,1400 [facility] Last Admin: 11/16/18 14:48 Dose: 40 mg Heparin Sodium (Porcine) (Heparin -) 5,000 unit SQ BID [facility] Last Admin: 11/16/18 10:41 Dose: 5,000 unit Hydrochlorothiazide (Hctz -) 12.5 mg PO DAILY [facility] Last Admin: 11/16/18 14:48 Dose: 12.5 mg Insulin Aspart (Novolog Vial Sliding Scale -) 1 vial SQ [facility]; Protocol Last Admin: 11/16/18 18:02 Dose: 8 units Insulin Detemir (Levemir Vial) 30 units SQ HS [facility] Insulin Detemir (Levemir Vial) 50 units SQ AM [facility] Last Admin: 11/16/18 07:44 Dose: Not Given Levothyroxine Sodium (Synthroid -) 150 mcg PO DAILY@0700 [facility] Last Admin: 11/16/18 06:49 Dose: 150 mcg Losartan Potassium (Cozaar -) 50 mg PO DAILY [facility] Last Admin: 11/16/18 10:41 Dose: 50 mg Ramipril (Altace -) 5 mg PO DAILY [facility] Last Admin: 11/16/18 14:48 Dose: 5 mg - Objective Vital Signs: Vital Signs Temperature 98.2 F 11/16/18 14:17 Pulse Rate 87 11/16/18 14:17 Respiratory Rate 18 11/16/18 14:17 Blood Pressure 175/66 H 11/16/18 14:17 O2 Sat by Pulse Oximetry (%) 99 11/16/18 16:24 Constitutional: Yes: Calm Eyes: Yes: EOM Intact HENT: Yes: Normocephalic Neck: Yes: Trachea Midline Cardiovascular: Yes: Tachycardia Respiratory: Yes: On Venti-Mask Gastrointestinal: Yes: Normal Bowel Sounds ...Rectal Exam: Yes: Deferred Genitourinary: Yes: WNL Musculoskeletal: Yes: Muscle Weakness Extremities: Yes: WNL Edema: No Neurological: Yes: Alert, Oriented Labs: CBC, BMP 11/16/18 07:45 11/16/18 07:45 INR, PTT INR 1.03 (0.83-1.09) 11/15/18 10:05 Problem List - Problems (1) Type 2 diabetes mellitus with other diabetic kidney complication Code(s): E11.29 - TYPE 2 DIABETES MELLITUS W OTH DIABETIC KIDNEY COMPLICATION (2) Type 2 diabetes mellitus with other diabetic kidney complication Code(s): E11.29 - TYPE 2 DIABETES MELLITUS W OTH DIABETIC KIDNEY COMPLICATION (3) Hypothyroid Code(s): E03.9 - HYPOTHYROIDISM, UNSPECIFIED (4) REBEKAH (acute kidney injury) Code(s): N17.9 - ACUTE KIDNEY FAILURE, UNSPECIFIED (5) BMI 50.0-59.9, adult Code(s): Z68.43 - BODY MASS INDEX (BMI) 50.0-59.9, ADULT Assessment/Plan Current Active Pro Current Active Problems CHF (congestive heart failure) (Acute) COPD (chronic obstructive pulmonary disease) (Acute) HLD (hyperlipidemia) (Acute) HTN (hypertension) (Acute) Hypothyroid (Acute) SOB (shortness of breath) (Acute) Type 2 diabetes mellitus with other diabetic kidney complication (Acute) Type 2 diabetes mellitus with other diabetic kidney complication (Acute) Abnormal Lab Results 11/15/18 11/15/18 11/15/18 10:05 10:05 10:05 VBG pH 7.22 L POC VBG pCO2 60.4 H POC VBG pO2 < 49 H VBG O2 Sat (Sonia) 50.6 L VBG Base Excess -4.7 L Chloride 109 H BUN 39.9 H Creatinine 2.6 H Random Glucose 210 H Creatine Kinase 216 H B-Natriuretic Peptide 3673.7 H Albumin 3.1 L Urine Protein Urine Glucose (UA) 11/15/18 10:50 VBG pH POC VBG pCO2 POC VBG pO2 VBG O2 Sat (Sonia) VBG Base Excess Chloride BUN Creatinine Random Glucose Creatine Kinase B-Natriuretic Peptide Albumin Urine Protein 3+ H Urine Glucose (UA) 1+ H Laboratory Tests 11/15/18 11/15/18 11/15/18 10:05 16:09 22:31 Sodium 140 Potassium 4.5 Chloride 109 H Carbon Dioxide 24 Anion Gap 8 BUN 39.9 H Creatinine 2.6 H Est GFR (CKD-EPI)NonAf 21.12 POC Glucometer 221 371 plan: dc levemir hs levemir 25 units am continue bgm achs novolog scale
[2018-11-16] MEDS ORDERED: INSULIN (NOVOLOG) ASPART 100 UNITS/ML 10ML VIAL ONE (21:34)
[2018-11-16] MEDS: ACETAMINOPHEN 325 MG TABLET (FP) PO PRN (21:43)
[2018-11-16] MEDS: ATORVASTATIN CA 40 MG TABLET (FP) PO SCH (21:43)
--- NOTE | 2018-11-16 23:11 | PN ---
Progress Note (short form) - Note Progress Note: 1. CKD 2. REBEKAH 3. morbid obesity 4. hx of bariatric surgery 5. DM 6. HTN 7. hypothyroidism 8. ovarian cyst Current Medications Acetaminophen (Tylenol -) 650 mg PO Q6H PRN PRN Reason: PAIN LEVEL 1-5 Last Admin: 11/16/18 21:43 Dose: 650 mg Albuterol/Ipratropium (Duoneb -) 1 amp NEB RQID [facility] Last Admin: 11/16/18 20:30 Dose: 1 amp Aspirin (Ecotrin -) 81 mg PO DAILY [facility] Last Admin: 11/16/18 10:41 Dose: 81 mg Atorvastatin Calcium (Lipitor -) 40 mg PO HS [facility] Last Admin: 11/16/18 21:43 Dose: 40 mg Furosemide (Lasix Injection -) 40 mg IVPUSH BID@0600,1400 [facility] Last Admin: 11/16/18 14:48 Dose: 40 mg Heparin Sodium (Porcine) (Heparin -) 5,000 unit SQ BID [facility] Last Admin: 11/16/18 21:43 Dose: 5,000 unit Hydrochlorothiazide (Hctz -) 12.5 mg PO DAILY [facility] Last Admin: 11/16/18 14:48 Dose: 12.5 mg Insulin Aspart (Novolog Vial Sliding Scale -) 1 vial SQ ACHS [facility]; Protocol Last Admin: 11/16/18 21:44 Dose: 3 units Insulin Detemir (Levemir Vial) 25 units SQ AM [facility] Levothyroxine Sodium (Synthroid -) 150 mcg PO DAILY@0700 [facility] Last Admin: 11/16/18 06:49 Dose: 150 mcg Losartan Potassium (Cozaar -) 50 mg PO DAILY [facility] Last Admin: 11/16/18 10:41 Dose: 50 mg Ramipril (Altace -) 5 mg PO DAILY [facility] Last Admin: 11/16/18 14:48 Dose: 5 mg Last Vital Signs Temp Pulse Resp BP Pulse Ox 98.6 F 85 20 178/84 H 99 11/16/18 17:00 11/16/18 17:00 11/16/18 17:00 11/16/18 17:00 11/16/18 16:24 CBC, BMP 11/16/18 07:45 11/16/18 07:45 Plan - cont lasix - monitor renal function - monitor potassium on losartan, d/c if she develops hyperkalemia - lasix should help with potassium - monitor coordinating producer daily - avoid nsiad or nephrotoxins
[2018-11-17] MEDS: INSULIN SLIDING SCALE (NOVOLOG) 1 VIAL SQ SCH ×4 (06:13→21:41)
[2018-11-17] MEDS: FUROSEMIDE 40 MG/4 ML INJECTABLE VIAL IVPUSH SCH ×2 (06:36→13:28)
[2018-11-17] MEDS: LEVOTHYROXINE NA 150 MCG TABLET PO SCH (06:36)
[2018-11-17] MEDS: ALBUTEROL SO4 2.5/IPRATROPIUM 0.5 INH SOL 3 ML VIAL.NEB. NEB SCH ×4 (07:41→20:41)
[2018-11-17] MEDS: INSULIN (LEVEMIR) 100 UNITS/ML UNITS SQ SCH (08:14)
--- NOTE | 2018-11-17 08:29 | EKG ---
Test Reason : Blood Pressure : / mmHG Vent. Rate : 081 BPM Atrial Rate : 081 BPM P-R Int : 160 ms QRS Dur : 088 ms QT Int : 388 ms P-R-T Axes : 043 000 038 degrees QTc Int : 450 ms NORMAL SINUS RHYTHM POSSIBLE LEFT ATRIAL ENLARGEMENT BORDERLINE ECG NO PREVIOUS ECGS AVAILABLE Confirmed by Asia Hannah ([id number]) on 11/17/2018 8:28:57 AM Referred By: Confirmed By:Asia Hannah
[2018-11-17] MEDS: HEPARIN NA (PORCINE) 5,000 UNITS/ML 1ML VIAL SQ SCH ×2 (09:55→21:40)
[2018-11-17] MEDS: RAMIPRIL 5 MG CAPSULE (FP) PO SCH (09:55)
[2018-11-17] MEDS: HYDROCHLOROTHIAZIDE 12.5 MG CAPSULE (FP) PO SCH (09:55)
[2018-11-17] MEDS: ASPIRIN COATED 81 MG TABLET.EC PO SCH (09:55)
[2018-11-17] MEDS: LOSARTAN POTASSIUM 50 MG TABLET (FP) PO SCH (09:55)
--- NOTE | 2018-11-17 10:17 | PN ---
Progress Note, Physician Chief Complaint: less sob tele neg History of Present Illness: 48 year old female (sees Dr. Marley), with a significant PMH of HTN, HLD, COPD (no history of intubations, has been admitted to ICU in the past), IDDM, CKD, REBEKAH, morbid obesity, hyperkalemia, ovarian cyst, hypothyroidism, sleep apnea ( wears CPAP at night at home), and chronic low back pain. She presents now from the ED with SOB, SIMEON, and orthopnea for 2 days associated with a dry cough. She is currently on Lasix 40mg daily but states that it has become less effective. In the ED she was placed on BiPAP and was given nebs and 80 mg of IV Lasix. BNP 3673.7 Repeat echocardiogram 11/15/18: TDS Mild LAE Mild to Mod MAC Mild MR Mild TR - Current Medication List Current Medications: Active Medications Acetaminophen (Tylenol -) 650 mg PO Q6H PRN PRN Reason: PAIN LEVEL 1-5 Last Admin: 11/16/18 21:43 Dose: 650 mg Albuterol/Ipratropium (Duoneb -) 1 amp NEB RQID [facility] Last Admin: 11/17/18 07:41 Dose: 1 amp Aspirin (Ecotrin -) 81 mg PO DAILY [facility] Last Admin: 11/17/18 09:55 Dose: 81 mg Atorvastatin Calcium (Lipitor -) 40 mg PO HS [facility] Last Admin: 11/16/18 21:43 Dose: 40 mg Furosemide (Lasix Injection -) 40 mg IVPUSH BID@0600,1400 [facility] Last Admin: 11/17/18 06:36 Dose: 40 mg Heparin Sodium (Porcine) (Heparin -) 5,000 unit SQ BID [facility] Last Admin: 11/17/18 09:55 Dose: 5,000 unit Hydrochlorothiazide (Hctz -) 12.5 mg PO DAILY [facility] Last Admin: 11/17/18 09:55 Dose: 12.5 mg Insulin Aspart (Novolog Vial Sliding Scale -) 1 vial SQ [facility]; Protocol Last Admin: 11/17/18 06:13 Dose: Not Given Insulin Detemir (Levemir Vial) 25 units SQ AM [facility] Last Admin: 11/17/18 08:14 Dose: 25 units Levothyroxine Sodium (Synthroid -) 150 mcg PO DAILY@0700 [facility] Last Admin: 11/17/18 06:36 Dose: 150 mcg Losartan Potassium (Cozaar -) 50 mg PO DAILY [facility] Last Admin: 11/17/18 09:55 Dose: 50 mg Ramipril (Altace -) 5 mg PO DAILY [facility] Last Admin: 11/17/18 09:55 Dose: 5 mg - Objective Vital Signs: Vital Signs Temperature 98.0 F 11/17/18 06:00 Pulse Rate 91 H 11/17/18 06:00 Respiratory Rate 20 11/17/18 06:00 Blood Pressure 132/64 11/17/18 06:00 O2 Sat by Pulse Oximetry (%) 99 11/17/18 07:40 Constitutional: Yes: No Distress, Calm Eyes: Yes: Conjunctiva Clear, EOM Intact HENT: Yes: Atraumatic, Normocephalic Neck: Yes: Supple, Trachea Midline Cardiovascular: Yes: Regular Rate and Rhythm Respiratory: Yes: Diminished, Poor Air Entry Gastrointestinal: Yes: Normal Bowel Sounds, Abdomen, Obese Musculoskeletal: Yes: WNL Extremities: Yes: WNL Edema: No Labs: CBC, BMP 11/16/18 07:45 11/16/18 07:45 INR, PTT INR 1.03 (0.83-1.09) 11/15/18 10:05 Assessment/Plan 48 year old female (sees Dr. Marley), with a significant PMH of HTN, HLD, COPD (no history of intubations, has been admitted to ICU in the past), IDDM, CKD, REBEKAH, morbid obesity, hyperkalemia, ovarian cyst, hypothyroidism, sleep apnea ( wears CPAP at night at home), and chronic low back pain. She presents now from the ED with SOB, SIMEON, and orthopnea for 2 days associated with a dry cough. She is currently on Lasix 40mg daily but states that it has become less effective. In the ED she was placed on BiPAP and was given nebs and 80 mg of IV Lasix. BNP 3673.7 Repeat echocardiogram 11/15/18: TDS Mild LAE Mild to Mod MAC Mild MR Mild TR CHF Acute on chronic diastolic change Lasix to 40 mg PO BID Daily I's/O's/Wt's/Lytes BiPAP as needed Nebs PRN HTN/HLD Continue Lipitor/ASA/Losartan at home doses
--- NOTE | 2018-11-17 12:11 | PN ---
Progress Note, Physician Chief Complaint: AWAKE ALERT FAMILY BEDSIDE FEELING BETTER - Current Medication List Current Medications: Active Medications Acetaminophen (Tylenol -) 650 mg PO Q6H PRN PRN Reason: PAIN LEVEL 1-5 Last Admin: 11/16/18 21:43 Dose: 650 mg Albuterol/Ipratropium (Duoneb -) 1 amp NEB RQID [facility] Last Admin: 11/17/18 07:41 Dose: 1 amp Aspirin (Ecotrin -) 81 mg PO DAILY [facility] Last Admin: 11/17/18 09:55 Dose: 81 mg Atorvastatin Calcium (Lipitor -) 40 mg PO HS [facility] Last Admin: 11/16/18 21:43 Dose: 40 mg Furosemide (Lasix Injection -) 40 mg IVPUSH BID@0600,1400 [facility] Last Admin: 11/17/18 06:36 Dose: 40 mg Heparin Sodium (Porcine) (Heparin -) 5,000 unit SQ BID [facility] Last Admin: 11/17/18 09:55 Dose: 5,000 unit Hydrochlorothiazide (Hctz -) 12.5 mg PO DAILY [facility] Last Admin: 11/17/18 09:55 Dose: 12.5 mg Insulin Aspart (Novolog Vial Sliding Scale -) 1 vial SQ [facility]; Protocol Last Admin: 11/17/18 11:52 Dose: Not Given Insulin Detemir (Levemir Vial) 25 units SQ AM [facility] Last Admin: 11/17/18 08:14 Dose: 25 units Levothyroxine Sodium (Synthroid -) 150 mcg PO DAILY@0700 [facility] Last Admin: 11/17/18 06:36 Dose: 150 mcg Losartan Potassium (Cozaar -) 50 mg PO DAILY [facility] Last Admin: 11/17/18 09:55 Dose: 50 mg Ramipril (Altace -) 5 mg PO DAILY [facility] Last Admin: 11/17/18 09:55 Dose: 5 mg - Objective Vital Signs: Vital Signs Temperature 97.5 F L 11/17/18 10:00 Pulse Rate 94 H 11/17/18 10:00 Respiratory Rate 20 11/17/18 10:00 Blood Pressure 133/71 11/17/18 10:00 O2 Sat by Pulse Oximetry (%) 99 11/17/18 09:00 Constitutional: Yes: Mild Distress Cardiovascular: Yes: Regular Rate and Rhythm Respiratory: Yes: Diminished, On Nasal O2 Gastrointestinal: Yes: Soft, Abdomen, Obese Genitourinary: Yes: WNL Musculoskeletal: Yes: WNL Edema: Yes Integumentary: Yes: WNL Wound/Incision: Yes: Clean/Dry Neurological: Yes: WNL ...Motor Strength: WNL Psychiatric: Yes: WNL Labs: CBC, BMP 11/16/18 07:45 11/16/18 07:45 INR, PTT INR 1.03 (0.83-1.09) 11/15/18 10:05 Problem List - Problems (1) CHF (congestive heart failure) Code(s): I50.9 - HEART FAILURE, UNSPECIFIED (2) COPD (chronic obstructive pulmonary disease) Code(s): J44.9 - CHRONIC OBSTRUCTIVE PULMONARY DISEASE, UNSPECIFIED (3) HLD (hyperlipidemia) Code(s): E78.5 - HYPERLIPIDEMIA, UNSPECIFIED (4) HTN (hypertension) Code(s): I10 - ESSENTIAL (PRIMARY) HYPERTENSION (5) Hypothyroid Code(s): E03.9 - HYPOTHYROIDISM, UNSPECIFIED (6) SOB (shortness of breath) Code(s): R06.02 - SHORTNESS OF BREATH (7) Type 2 diabetes mellitus with other diabetic kidney complication Code(s): E11.29 - TYPE 2 DIABETES MELLITUS W OTH DIABETIC KIDNEY COMPLICATION (8) BMI 50.0-59.9, adult Code(s): Z68.43 - BODY MASS INDEX (BMI) 50.0-59.9, ADULT (9) Diabetes mellitus Code(s): E11.9 - TYPE 2 DIABETES MELLITUS WITHOUT COMPLICATIONS Qualifiers: Diabetes mellitus type: type 2 (10) Hypercholesteremia Code(s): E78.00 - PURE HYPERCHOLESTEROLEMIA, UNSPECIFIED (11) Hypertension Code(s): I10 - ESSENTIAL (PRIMARY) HYPERTENSION Qualifiers: Hypertension type: unspecified Qualified Code(s): I10 - Essential (primary ) hypertension (12) Morbid (severe) obesity due to excess calories Code(s): E66.01 - MORBID (SEVERE) OBESITY DUE TO EXCESS CALORIES (13) Sleep apnea with use of continuous positive airway pressure (CPAP) Code(s): G47.30 - SLEEP APNEA, UNSPECIFIED Assessment/Plan LASIX IV BID MONITOR IN/OUTS AND DAILY WEIGHTS NO NEED FOR ANTIBIOTICS AT THIS TIME BIPAP/PULM EVAL 02 SUPPORT WEIGHT LOSS D/W PATIENT TO DECREASE MORBIDITY ECHO REVIEWED CARDIOLOGY F/U REPEAT CXR
--- NOTE | 2018-11-17 13:25 | PN ---
Progress Note (short form) - Note Progress Note: Awake and alert. NAD on NC O2. Used NIPPV overnight. No CP. No acute events overnight. Intake & Output 11/14/18 11/15/18 11/16/18 11/17/18 23:59 23:59 23:59 23:59 Intake Total 410 340 20 Balance 410 340 20 Weight 322 lb 323 lb 320 lb Last Vital Signs Temp Pulse Resp BP Pulse Ox 97.5 F L 94 H 20 133/71 99 11/17/18 10:00 11/17/18 10:00 11/17/18 10:00 11/17/18 10:00 11/17/18 09:00 Active Medications Acetaminophen (Tylenol -) 650 mg PO Q6H PRN PRN Reason: PAIN LEVEL 1-5 Last Admin: 11/16/18 21:43 Dose: 650 mg Albuterol/Ipratropium (Duoneb -) 1 amp NEB RQID [facility] Last Admin: 11/17/18 12:12 Dose: 1 amp Aspirin (Ecotrin -) 81 mg PO DAILY [facility] Last Admin: 11/17/18 09:55 Dose: 81 mg Atorvastatin Calcium (Lipitor -) 40 mg PO HS [facility] Last Admin: 11/16/18 21:43 Dose: 40 mg Furosemide (Lasix Injection -) 40 mg IVPUSH BID@0600,1400 [facility] Last Admin: 11/17/18 06:36 Dose: 40 mg Heparin Sodium (Porcine) (Heparin -) 5,000 unit SQ BID [facility] Last Admin: 11/17/18 09:55 Dose: 5,000 unit Hydrochlorothiazide (Hctz -) 12.5 mg PO DAILY [facility] Last Admin: 11/17/18 09:55 Dose: 12.5 mg Insulin Aspart (Novolog Vial Sliding Scale -) 1 vial SQ ACHS [facility]; Protocol Last Admin: 11/17/18 11:52 Dose: Not Given Insulin Detemir (Levemir Vial) 25 units SQ AM [facility] Last Admin: 11/17/18 08:14 Dose: 25 units Levothyroxine Sodium (Synthroid -) 150 mcg PO DAILY@0700 [facility] Last Admin: 11/17/18 06:36 Dose: 150 mcg Losartan Potassium (Cozaar -) 50 mg PO DAILY [facility] Last Admin: 11/17/18 09:55 Dose: 50 mg Ramipril (Altace -) 5 mg PO DAILY [facility] Last Admin: 11/17/18 09:55 Dose: 5 mg Constitutional: Yes: Mildly tachypneic at rest Eyes: Yes: EOM Intact HENT: Yes: Normocephalic Neck: Yes: Trachea Midline Cardiovascular: Yes: Regular Rate and Rhythm, S1 Respiratory: Yes: Bilateral rhonchi, no wheeze Gastrointestinal: Yes: Normal Bowel Sounds, Abdomen, Obese Edema: LLE: 1+, RLE: 1+ Integumentary: Yes: WNL Neurological: Yes: Alert Psychiatric: Yes: Alert Labs: Laboratory Results - last 24 hr 11/16/18 11/16/18 11/17/18 16:54 21:42 05:53 POC Glucometer 205 192 91 11/17/18 11:50 POC Glucometer 145 Problem List - Problems (1) CHF (congestive heart failure) Code(s): I50.9 - HEART FAILURE, UNSPECIFIED (2) COPD (chronic obstructive pulmonary disease) Code(s): J44.9 - CHRONIC OBSTRUCTIVE PULMONARY DISEASE, UNSPECIFIED (3) SOB (shortness of breath) Code(s): R06.02 - SHORTNESS OF BREATH (4) REBEKAH (acute kidney injury) Code(s): N17.9 - ACUTE KIDNEY FAILURE, UNSPECIFIED (5) CKD (chronic kidney disease) Code(s): N18.9 - CHRONIC KIDNEY DISEASE, UNSPECIFIED (6) Diabetes mellitus Code(s): E11.9 - TYPE 2 DIABETES MELLITUS WITHOUT COMPLICATIONS Qualifiers: Diabetes mellitus type: type 2 (7) Morbid (severe) obesity due to excess calories Code(s): E66.01 - MORBID (SEVERE) OBESITY DUE TO EXCESS CALORIES (8) Sleep apnea with use of continuous positive airway pressure (CPAP) Code(s): G47.30 - SLEEP APNEA, UNSPECIFIED Assessment/Plan CONTINUE NIPPV HS AND PRN TITRATE O2 TO KEEP SAT GREATER THAN 90% DUONEBS TID DVT PROPHYLAXSIS GLYCEMIC CONTROL HOLD STEROIDS FOR NOW EMPIRIC ANTIBIOTICS PER PRIMARY TEAM DR LEE
--- NOTE | 2018-11-17 16:49 | PN ---
Progress Note (short form) - Note Progress Note: Problems 1. CKD 2. REBEKAH 3. morbid obesity 4. hx of bariatric surgery 5. DM 6. HTN 7. hypothyroidism 8. ovarian cyst Current Medications Acetaminophen (Tylenol -) 650 mg PO Q6H PRN PRN Reason: PAIN LEVEL 1-5 Last Admin: 11/16/18 21:43 Dose: 650 mg Albuterol/Ipratropium (Duoneb -) 1 amp NEB RQID [facility] Last Admin: 11/17/18 16:35 Dose: 1 amp Aspirin (Ecotrin -) 81 mg PO DAILY [facility] Last Admin: 11/17/18 09:55 Dose: 81 mg Atorvastatin Calcium (Lipitor -) 40 mg PO HS [facility] Last Admin: 11/16/18 21:43 Dose: 40 mg Furosemide (Lasix Injection -) 40 mg IVPUSH BID@0600,1400 [facility] Last Admin: 11/17/18 13:28 Dose: 40 mg Heparin Sodium (Porcine) (Heparin -) 5,000 unit SQ BID [facility] Last Admin: 11/17/18 09:55 Dose: 5,000 unit Hydrochlorothiazide (Hctz -) 12.5 mg PO DAILY [facility] Last Admin: 11/17/18 09:55 Dose: 12.5 mg Insulin Aspart (Novolog Vial Sliding Scale -) 1 vial SQ ACHS [facility]; Protocol Last Admin: 11/17/18 11:52 Dose: Not Given Insulin Detemir (Levemir Vial) 25 units SQ AM [facility] Last Admin: 11/17/18 08:14 Dose: 25 units Levothyroxine Sodium (Synthroid -) 150 mcg PO DAILY@0700 [facility] Last Admin: 11/17/18 06:36 Dose: 150 mcg Losartan Potassium (Cozaar -) 50 mg PO DAILY [facility] Last Admin: 11/17/18 09:55 Dose: 50 mg Ramipril (Altace -) 5 mg PO DAILY [facility] Last Admin: 11/17/18 09:55 Dose: 5 mg Last Vital Signs Temp Pulse Resp BP Pulse Ox 98.2 F 90 18 142/84 100 11/17/18 14:25 11/17/18 14:25 11/17/18 14:25 11/17/18 14:25 11/17/18 16:35 Lungs rhonchi Heart rrr Abd soft nontender ext mild edema CBC, BMP 11/16/18 07:45 11/16/18 07:45 IMP- HF well controlled CKD s/p rebekah improving unclear baseline fluctuating azotemia Plan- encourage oral fluids same rx
[2018-11-17] MEDS: ACETAMINOPHEN 325 MG TABLET (FP) PO PRN (21:40)
[2018-11-17] MEDS: ATORVASTATIN CA 40 MG TABLET (FP) PO SCH (21:40)
[2018-11-18] MEDS: FUROSEMIDE 40 MG/4 ML INJECTABLE VIAL IVPUSH SCH ×2 (05:41→14:02)
[2018-11-18] MEDS: INSULIN (LEVEMIR) 100 UNITS/ML UNITS SQ SCH (06:02)
[2018-11-18] MEDS: INSULIN SLIDING SCALE (NOVOLOG) 1 VIAL SQ SCH ×4 (06:02→21:20)
[2018-11-18] MEDS: LEVOTHYROXINE NA 150 MCG TABLET PO SCH (06:03)
[2018-11-18 07:26] LABS: ALBUMIN 2.6 g/dl (3.4-5.0); BILIRUBIN,TOTAL 0.2 mg/dL (0.2-1); BLOOD UREA NITROGEN 52.5 mg/dL (7-18); CALCIUM 8.5 mg/dL (8.5-10.1); CREATININE 2.7 mg/dL (0.55-1.3); POTASSIUM 4.3 mmol/L (3.5-5.1); TOT PROT 6.5 g/dl (6.4-8.2)
[2018-11-18] MEDS: ALBUTEROL SO4 2.5/IPRATROPIUM 0.5 INH SOL 3 ML VIAL.NEB. NEB SCH ×4 (07:41→20:18)
[2018-11-18] MEDS: HEPARIN NA (PORCINE) 5,000 UNITS/ML 1ML VIAL SQ SCH ×2 (09:42→21:17)
[2018-11-18] MEDS: HYDROCHLOROTHIAZIDE 12.5 MG CAPSULE (FP) PO SCH (09:42)
[2018-11-18] MEDS: ASPIRIN COATED 81 MG TABLET.EC PO SCH (09:42)
[2018-11-18] MEDS: LOSARTAN POTASSIUM 50 MG TABLET (FP) PO SCH (09:42)
[2018-11-18] MEDS: RAMIPRIL 5 MG CAPSULE (FP) PO SCH (09:43)
--- NOTE | 2018-11-18 10:29 | PN ---
Progress Note, Physician History of Present Illness: PULMONARY ALERT,FEELING BETTER,LESS DYSPNEIC,SLEPT WELL ON BIPAP - Current Medication List Current Medications: Active Medications Acetaminophen (Tylenol -) 650 mg PO Q6H PRN PRN Reason: PAIN LEVEL 1-5 Last Admin: 11/17/18 21:40 Dose: 650 mg Albuterol/Ipratropium (Duoneb -) 1 amp NEB RQID [facility] Last Admin: 11/18/18 07:41 Dose: 1 amp Aspirin (Ecotrin -) 81 mg PO DAILY [facility] Last Admin: 11/18/18 09:42 Dose: 81 mg Atorvastatin Calcium (Lipitor -) 40 mg PO HS [facility] Last Admin: 11/17/18 21:40 Dose: 40 mg Furosemide (Lasix Injection -) 40 mg IVPUSH BID@0600,1400 [facility] Last Admin: 11/18/18 05:41 Dose: 40 mg Heparin Sodium (Porcine) (Heparin -) 5,000 unit SQ BID [facility] Last Admin: 11/18/18 09:42 Dose: 5,000 unit Hydrochlorothiazide (Hctz -) 12.5 mg PO DAILY [facility] Last Admin: 11/18/18 09:42 Dose: 12.5 mg Insulin Aspart (Novolog Vial Sliding Scale -) 1 vial SQ ACHS [facility]; Protocol Last Admin: 11/18/18 06:02 Dose: Not Given Insulin Detemir (Levemir Vial) 25 units SQ AM [facility] Last Admin: 11/18/18 06:02 Dose: Not Given Levothyroxine Sodium (Synthroid -) 150 mcg PO DAILY@0700 [facility] Last Admin: 11/18/18 06:03 Dose: 150 mcg Losartan Potassium (Cozaar -) 50 mg PO DAILY [facility] Last Admin: 11/18/18 09:42 Dose: 50 mg Ramipril (Altace -) 5 mg PO DAILY [facility] Last Admin: 11/18/18 09:43 Dose: 5 mg - Objective Vital Signs: Vital Signs Temperature 98.0 F 11/18/18 06:00 Pulse Rate 80 11/18/18 06:00 Respiratory Rate 20 11/18/18 06:00 Blood Pressure 155/78 11/18/18 06:00 O2 Sat by Pulse Oximetry (%) 99 11/18/18 00:25 Constitutional: Yes: Calm, Obese Eyes: Yes: WNL HENT: Yes: WNL Neck: Yes: WNL Cardiovascular: Yes: Regular Rate and Rhythm, S1, S2 Respiratory: Yes: Diminished Extremities: Yes: WNL Edema: Yes Labs: 11/18/18 05:33 INR, PTT INR 1.03 (0.83-1.09) 11/15/18 10:05 Problem List - Problems (1) Acute respiratory failure with hypoxia and hypercapnia Code(s): J96.01 - ACUTE RESPIRATORY FAILURE WITH HYPOXIA; J96.02 - ACUTE RESPIRATORY FAILURE WITH HYPERCAPNIA Assessment/Plan Problem List - Problems (1) CHF (congestive heart failure) Code(s): I50.9 - HEART FAILURE, UNSPECIFIED (2) COPD (chronic obstructive pulmonary disease) Code(s): J44.9 - CHRONIC OBSTRUCTIVE PULMONARY DISEASE, UNSPECIFIED (3) SOB (shortness of breath) Code(s): R06.02 - SHORTNESS OF BREATH (4) REBEKAH (acute kidney injury) Code(s): N17.9 - ACUTE KIDNEY FAILURE, UNSPECIFIED (5) CKD (chronic kidney disease) Code(s): N18.9 - CHRONIC KIDNEY DISEASE, UNSPECIFIED (6) Diabetes mellitus Code(s): E11.9 - TYPE 2 DIABETES MELLITUS WITHOUT COMPLICATIONS Qualifiers: Diabetes mellitus type: type 2 (7) Morbid (severe) obesity due to excess calories Code(s): E66.01 - MORBID (SEVERE) OBESITY DUE TO EXCESS CALORIES (8) Sleep apnea with use of continuous positive airway pressure (CPAP) Code(s): G47.30 - SLEEP APNEA, UNSPECIFIED 9 ACUTE HYPOXEMIC/HYPERCAPNEIC RESPIRATORY FAILURE 10 ? OHS Assessment/Plan CONTINUE NIPPV HS AND PRN TITRATE O2 TO KEEP SAT GREATER THAN 90% DUONEBS TID DVT PROPHYLAXSIS GLYCEMIC CONTROL ABG ANTIBIOTICS PER PRIMARY TEAM CONSIDER BARIATRIC SYRGEY EVALUATION MONITOR LYTES,RENAL FUNCTION DR OSUNA
[2018-11-18 12:30] VITALS: BMI 52.0
--- NOTE | 2018-11-18 12:39 | PN ---
Progress Note, Physician History of Present Illness: Pt seen and examined at bedside. She is awake and alert. She feels that her breathing is improving. - Current Medication List Current Medications: Active Medications Acetaminophen (Tylenol -) 650 mg PO Q6H PRN PRN Reason: PAIN LEVEL 1-5 Last Admin: 11/17/18 21:40 Dose: 650 mg Albuterol/Ipratropium (Duoneb -) 1 amp NEB RQID [facility] Last Admin: 11/18/18 07:41 Dose: 1 amp Aspirin (Ecotrin -) 81 mg PO DAILY [facility] Last Admin: 11/18/18 09:42 Dose: 81 mg Atorvastatin Calcium (Lipitor -) 40 mg PO HS [facility] Last Admin: 11/17/18 21:40 Dose: 40 mg Furosemide (Lasix Injection -) 40 mg IVPUSH BID@0600,1400 [facility] Last Admin: 11/18/18 05:41 Dose: 40 mg Heparin Sodium (Porcine) (Heparin -) 5,000 unit SQ BID [facility] Last Admin: 11/18/18 09:42 Dose: 5,000 unit Hydrochlorothiazide (Hctz -) 12.5 mg PO DAILY [facility] Last Admin: 11/18/18 09:42 Dose: 12.5 mg Insulin Aspart (Novolog Vial Sliding Scale -) 1 vial SQ ACHS [facility]; Protocol Last Admin: 11/18/18 06:02 Dose: Not Given Insulin Detemir (Levemir Vial) 25 units SQ AM [facility] Last Admin: 11/18/18 06:02 Dose: Not Given Levothyroxine Sodium (Synthroid -) 150 mcg PO DAILY@0700 [facility] Last Admin: 11/18/18 06:03 Dose: 150 mcg Losartan Potassium (Cozaar -) 50 mg PO DAILY [facility] Last Admin: 11/18/18 09:42 Dose: 50 mg Ramipril (Altace -) 5 mg PO DAILY [facility] Last Admin: 11/18/18 09:43 Dose: 5 mg - Objective Vital Signs: Vital Signs Temperature 98.2 F 11/18/18 10:00 Pulse Rate 82 11/18/18 10:00 Respiratory Rate 18 11/18/18 10:00 Blood Pressure 161/92 11/18/18 10:00 O2 Sat by Pulse Oximetry (%) 99 11/18/18 00:25 Constitutional: Yes: Calm Eyes: Yes: Conjunctiva Clear HENT: Yes: Atraumatic Neck: Yes: Supple Cardiovascular: Yes: S1, S2 Respiratory: Yes: On Nasal O2 Gastrointestinal: Yes: Soft, Abdomen, Obese Genitourinary: Yes: WNL Musculoskeletal: Yes: WNL Edema: Yes Edema: LLE: 1+, RLE: 1+ Neurological: Yes: Oriented Psychiatric: Yes: Oriented Labs: CBC, BMP 11/16/18 07:45 11/18/18 05:33 INR, PTT INR 1.03 (0.83-1.09) 11/15/18 10:05 Problem List - Problems (1) CHF (congestive heart failure) Code(s): I50.9 - HEART FAILURE, UNSPECIFIED (2) HLD (hyperlipidemia) Code(s): E78.5 - HYPERLIPIDEMIA, UNSPECIFIED (3) HTN (hypertension) Code(s): I10 - ESSENTIAL (PRIMARY) HYPERTENSION (4) CKD (chronic kidney disease) Code(s): N18.9 - CHRONIC KIDNEY DISEASE, UNSPECIFIED Assessment/Plan Current Medications Generic Name Dose Route Start Last Admin Trade Name Freq PRN Reason Stop Dose Admin Acetaminophen 650 mg 11/16/18 21:22 11/17/18 21:40 Tylenol - PO 650 mg Q6H PRN Administration PAIN LEVEL 1-5 Albuterol/Ipratropium 1 amp 11/15/18 16:00 11/18/18 07:41 Duoneb - NEB 1 amp RQID [facility] Administration Aspirin 81 mg 11/16/18 10:00 11/18/18 09:42 Ecotrin - PO 81 mg DAILY [facility] Administration Atorvastatin Calcium 40 mg 11/15/18 22:00 11/17/18 21:40 Lipitor - PO 40 mg HS [facility] Administration Furosemide 40 mg 11/15/18 14:00 11/18/18 05:41 Lasix Injection - IVPUSH 40 mg BID@0600,1400 [facility] Administration Heparin Sodium (Porcine) 5,000 unit 11/15/18 22:00 11/18/18 09:42 Heparin - SQ 5,000 unit BID [facility] Administration Hydrochlorothiazide 12.5 mg 11/16/18 14:30 11/18/18 09:42 Hctz - PO 12.5 mg DAILY [facility] Administration Insulin Aspart 1 vial 11/16/18 22:00 11/18/18 06:02 Novolog Vial Sliding Scale - SQ Not Given ACHS [facility] Protocol Insulin Detemir 25 units 11/17/18 07:00 11/18/18 06:02 Levemir Vial SQ Not Given AM [facility] Levothyroxine Sodium 150 mcg 11/16/18 07:00 11/18/18 06:03 Synthroid - PO 150 mcg DAILY@0700 [facility] Administration Losartan Potassium 50 mg 11/16/18 10:00 11/18/18 09:42 Cozaar - PO 50 mg DAILY [facility] Administration Ramipril 5 mg 11/16/18 14:30 11/18/18 09:43 Altace - PO 5 mg DAILY [facility] Administration Impression 1. CKD 2. REBEKAH 3. morbid obesity 4. hx of bariatric surgery 5. DM 6. HTN 7. hypothyroidism 8. ovarian cyst Plan - cont lasix - cont losartan - d/c ramipril (developed hyperkalemia) - increase thiazide to 25 mg - lasix should help with potassium - monitor chief mate daily - avoid nsiad or nephrotoxins
[2018-11-18 12:53] LABS: ALLENS TEST POSITIVE; ARTERIAL BLD GAS O2 SATURATION 98.6 % (95-98); ARTERIAL BLOOD GAS BASE EXCESS 1.6 meq/l (-2-2); ARTERIAL BLOOD GAS PCO2 41.7 mmHg (35-45); ARTERIAL BLOOD GAS PO2 123 mmHg (80-100)
--- NOTE | 2018-11-18 13:34 | PN ---
Progress Note, Physician Chief Complaint: patient seen and examined says her breathing is better today used bipap last night and felt better - Current Medication List Current Medications: Active Medications Acetaminophen (Tylenol -) 650 mg PO Q6H PRN PRN Reason: PAIN LEVEL 1-5 Last Admin: 11/17/18 21:40 Dose: 650 mg Albuterol/Ipratropium (Duoneb -) 1 amp NEB RQID [facility] Last Admin: 11/18/18 07:41 Dose: 1 amp Aspirin (Ecotrin -) 81 mg PO DAILY [facility] Last Admin: 11/18/18 09:42 Dose: 81 mg Atorvastatin Calcium (Lipitor -) 40 mg PO HS [facility] Last Admin: 11/17/18 21:40 Dose: 40 mg Furosemide (Lasix Injection -) 40 mg IVPUSH BID@0600,1400 [facility] Last Admin: 11/18/18 05:41 Dose: 40 mg Heparin Sodium (Porcine) (Heparin -) 5,000 unit SQ BID [facility] Last Admin: 11/18/18 09:42 Dose: 5,000 unit Hydrochlorothiazide (Hctz -) 25 mg PO DAILY [facility] Insulin Aspart (Novolog Vial Sliding Scale -) 1 vial SQ ACHS [facility]; Protocol Last Admin: 11/18/18 12:54 Dose: 3 units Insulin Detemir (Levemir Vial) 25 units SQ AM [facility] Last Admin: 11/18/18 06:02 Dose: Not Given Levothyroxine Sodium (Synthroid -) 150 mcg PO DAILY@0700 [facility] Last Admin: 11/18/18 06:03 Dose: 150 mcg Losartan Potassium (Cozaar -) 50 mg PO DAILY [facility] Last Admin: 11/18/18 09:42 Dose: 50 mg - Objective Vital Signs: Vital Signs Temperature 98.2 F 11/18/18 10:00 Pulse Rate 82 11/18/18 10:00 Respiratory Rate 18 11/18/18 10:00 Blood Pressure 161/92 11/18/18 10:00 O2 Sat by Pulse Oximetry (%) 99 11/18/18 00:25 Constitutional: Yes: Calm Cardiovascular: Yes: Regular Rate and Rhythm, S1, S2 Respiratory: Yes: Diminished Gastrointestinal: Yes: Normal Bowel Sounds, Soft, Abdomen, Obese Edema: Yes Neurological: Yes: Alert, Oriented Labs: CBC, BMP 11/16/18 07:45 11/18/18 05:33 INR, PTT INR 1.03 (0.83-1.09) 11/15/18 10:05 Problem List - Problems (1) CHF (congestive heart failure) Assessment/Plan: telemetry dailyweight trendig down iv lasix echo monitor renal fucton bipap to assist with work of breathing Code(s): I50.9 - HEART FAILURE, UNSPECIFIED (2) COPD (chronic obstructive pulmonary disease) Assessment/Plan: bipap bronchodilators Code(s): J44.9 - CHRONIC OBSTRUCTIVE PULMONARY DISEASE, UNSPECIFIED (3) SOB (shortness of breath) Assessment/Plan: see 1 Code(s): R06.02 - SHORTNESS OF BREATH (4) CKD (chronic kidney disease) Assessment/Plan: renal consult dr colon Code(s): N18.9 - CHRONIC KIDNEY DISEASE, UNSPECIFIED (5) Diabetes mellitus Assessment/Plan: bgm sliding scale [id number] 7.4 endocrine consult noted Code(s): E11.9 - TYPE 2 DIABETES MELLITUS WITHOUT COMPLICATIONS Qualifiers: Diabetes mellitus type: type 2 (6) Hypothyroid Assessment/Plan: check tsh synthroid Code(s): E03.9 - HYPOTHYROIDISM, UNSPECIFIED (7) HTN (hypertension) Assessment/Plan: norvasc losartan Code(s): I10 - ESSENTIAL (PRIMARY) HYPERTENSION (8) HLD (hyperlipidemia) Code(s): E78.5 - HYPERLIPIDEMIA, UNSPECIFIED
--- NOTE | 2018-11-18 15:48 | PN ---
Progress Note, Physician Chief Complaint: cardiology FU Telem NSR Improved edema and SOB History of Present Illness: 48 year old female (sees Dr. Marley), with a significant PMH of HTN, HLD, COPD (no history of intubations, has been admitted to ICU in the past), IDDM, CKD, REBEKAH, morbid obesity, hyperkalemia, ovarian cyst, hypothyroidism, sleep apnea ( wears CPAP at night at home), and chronic low back pain. She presents now from the ED with SOB, SIMEON, and orthopnea for 2 days associated with a dry cough. Repeat echocardiogram 11/15/18: TDS Nl EF Mild LAE Mild to Mod MAC Mild MR Mild TR - Current Medication List Current Medications: Active Medications Acetaminophen (Tylenol -) 650 mg PO Q6H PRN PRN Reason: PAIN LEVEL 1-5 Last Admin: 11/17/18 21:40 Dose: 650 mg Albuterol/Ipratropium (Duoneb -) 1 amp NEB RQID [facility] Last Admin: 11/18/18 15:43 Dose: 1 amp Aspirin (Ecotrin -) 81 mg PO DAILY [facility] Last Admin: 11/18/18 09:42 Dose: 81 mg Atorvastatin Calcium (Lipitor -) 40 mg PO HS [facility] Last Admin: 11/17/18 21:40 Dose: 40 mg Furosemide (Lasix Injection -) 40 mg IVPUSH BID@0600,1400 [facility] Last Admin: 11/18/18 14:02 Dose: 40 mg Heparin Sodium (Porcine) (Heparin -) 5,000 unit SQ BID [facility] Last Admin: 11/18/18 09:42 Dose: 5,000 unit Hydrochlorothiazide (Hctz -) 25 mg PO DAILY [facility] Insulin Aspart (Novolog Vial Sliding Scale -) 1 vial SQ ACHS [facility]; Protocol Last Admin: 11/18/18 12:54 Dose: 3 units Insulin Detemir (Levemir Vial) 25 units SQ AM [facility] Last Admin: 11/18/18 06:02 Dose: Not Given Levothyroxine Sodium (Synthroid -) 150 mcg PO DAILY@0700 [facility] Last Admin: 11/18/18 06:03 Dose: 150 mcg Losartan Potassium (Cozaar -) 50 mg PO DAILY [facility] Last Admin: 11/18/18 09:42 Dose: 50 mg - Objective Vital Signs: Vital Signs Temperature 98.2 F 11/18/18 10:00 Pulse Rate 82 10/14/19 10:00 Respiratory Rate 18 11/18/18 10:00 Blood Pressure 161/92 11/18/18 10:00 O2 Sat by Pulse Oximetry (%) 99 11/18/18 00:25 Constitutional: Yes: Well Nourished, No Distress, Calm Eyes: Yes: Conjunctiva Clear, EOM Intact HENT: Yes: Atraumatic, Normocephalic Neck: Yes: Supple, Trachea Midline Cardiovascular: Yes: Regular Rate and Rhythm. No: JVD Respiratory: Yes: Regular, CTA Bilaterally Gastrointestinal: Yes: Normal Bowel Sounds Edema: Yes Edema: LLE: Trace, RLE: Trace Labs: CBC, BMP 11/16/18 07:45 11/18/18 05:33 INR, PTT INR 1.03 (0.83-1.09) 11/15/18 10:05 - ....Imaging Chest X-ray: Report Reviewed Problem List - Problems (1) CHF (congestive heart failure) Code(s): I50.9 - HEART FAILURE, UNSPECIFIED Assessment/Plan 48 year old female (sees Dr. Marley), with a significant PMH of HTN, HLD, COPD (no history of intubations, has been admitted to ICU in the past), IDDM, CKD, REBEKAH, morbid obesity, hyperkalemia, ovarian cyst, hypothyroidism, sleep apnea ( wears CPAP at night at home), and chronic low back pain. She presents now from the ED with SOB, SIMEON, and orthopnea for 2 days associated with a dry cough. Mild TR CHF Acute on chronic diastolic change Lasix to 40 mg PO BID Daily I's/O's/Wt's/Lytes BiPAP as needed Nebs PRN will see as needed.
[2018-11-18] MEDS: ATORVASTATIN CA 40 MG TABLET (FP) PO SCH (21:18)
[2018-11-19] MEDS: LEVOTHYROXINE NA 150 MCG TABLET PO SCH (06:25)
[2018-11-19] MEDS: FUROSEMIDE 40 MG/4 ML INJECTABLE VIAL IVPUSH SCH ×2 (06:25→14:24)
[2018-11-19] MEDS: INSULIN SLIDING SCALE (NOVOLOG) 1 VIAL SQ SCH ×4 (06:26→21:14)
[2018-11-19] MEDS: INSULIN (LEVEMIR) 100 UNITS/ML UNITS SQ SCH (06:26)
[2018-11-19] MEDS: ALBUTEROL SO4 2.5/IPRATROPIUM 0.5 INH SOL 3 ML VIAL.NEB. NEB SCH ×4 (07:25→20:24)
[2018-11-19] MEDS: ACETAMINOPHEN 325 MG TABLET (FP) PO PRN ×2 (07:54→21:19)
[2018-11-19] MEDS: HYDROCHLOROTHIAZIDE 12.5 MG CAPSULE (FP) PO SCH (10:10)
[2018-11-19] MEDS: LOSARTAN POTASSIUM 50 MG TABLET (FP) PO SCH (10:10)
[2018-11-19] MEDS: HEPARIN NA (PORCINE) 5,000 UNITS/ML 1ML VIAL SQ SCH ×2 (10:10→21:13)
[2018-11-19] MEDS: ASPIRIN COATED 81 MG TABLET.EC PO SCH (10:10)
--- NOTE | 2018-11-19 11:43 | PN ---
Progress Note, Physician Chief Complaint: Acute on Chronic diastolic HF History of Present Illness: NAD SOB occasionally - Current Medication List Current Medications: Active Medications Acetaminophen (Tylenol -) 650 mg PO Q6H PRN PRN Reason: PAIN LEVEL 1-5 Last Admin: 11/19/18 07:54 Dose: 650 mg Albuterol/Ipratropium (Duoneb -) 1 amp NEB RQID [facility] Last Admin: 11/19/18 11:36 Dose: 1 amp Aspirin (Ecotrin -) 81 mg PO DAILY [facility] Last Admin: 11/19/18 10:10 Dose: 81 mg Atorvastatin Calcium (Lipitor -) 40 mg PO HS [facility] Last Admin: 11/18/18 21:18 Dose: 40 mg Furosemide (Lasix Injection -) 40 mg IVPUSH BID@0600,1400 [facility] Last Admin: 11/19/18 06:25 Dose: 40 mg Heparin Sodium (Porcine) (Heparin -) 5,000 unit SQ BID [facility] Last Admin: 11/19/18 10:10 Dose: 5,000 unit Hydrochlorothiazide (Hctz -) 25 mg PO DAILY [facility] Last Admin: 11/19/18 10:10 Dose: 25 mg Insulin Aspart (Novolog Vial Sliding Scale -) 1 vial SQ ACHS [facility]; Protocol Last Admin: 11/19/18 06:26 Dose: Not Given Insulin Detemir (Levemir Vial) 25 units SQ AM [facility] Last Admin: 11/19/18 06:26 Dose: Not Given Levothyroxine Sodium (Synthroid -) 150 mcg PO DAILY@0700 [facility] Last Admin: 11/19/18 06:25 Dose: 150 mcg Losartan Potassium (Cozaar -) 50 mg PO DAILY [facility] Last Admin: 11/19/18 10:10 Dose: 50 mg - Objective Vital Signs: Vital Signs Temperature 97.7 F 11/19/18 05:40 Pulse Rate 79 11/19/18 05:40 Respiratory Rate 20 11/19/18 05:40 Blood Pressure 155/88 11/19/18 05:40 O2 Sat by Pulse Oximetry (%) 97 11/19/18 08:15 Constitutional: Yes: Well Nourished, No Distress, Calm, Obese Cardiovascular: Yes: Regular Rate and Rhythm Respiratory: Yes: Regular Gastrointestinal: Yes: Normal Bowel Sounds, Soft Musculoskeletal: Yes: WNL Extremities: Yes: WNL Edema: Yes Edema: LLE: 2+, RLE: 2+ Peripheral Pulses WNL: Yes Neurological: Yes: Alert, Oriented Psychiatric: Yes: Alert, Oriented Labs: CBC, BMP 11/16/18 07:45 11/18/18 05:33 INR, PTT INR 1.03 (0.83-1.09) 11/15/18 10:05 Problem List - Problems (1) CHF (congestive heart failure) Assessment/Plan: -Seen by Cardiology -low sodium diabetic diet -daily weights -Diuresis -monitor renal fxn closely Problems reviewed: Yes Code(s): I50.9 - HEART FAILURE, UNSPECIFIED (2) COPD (chronic obstructive pulmonary disease) Assessment/Plan: -Seen by Pulmonary -Continue bronchodilators -Nasal O 2 PRN to keep SpO2>90% -No indication for abx or medrol at this time Problems reviewed: Yes Code(s): J44.9 - CHRONIC OBSTRUCTIVE PULMONARY DISEASE, UNSPECIFIED (3) CKD (chronic kidney disease) Assessment/Plan: -Seen by Nephrology -Cr stable at this time -Renal U/S unremarkable -monitor trend Problems reviewed: Yes Code(s): N18.9 - CHRONIC KIDNEY DISEASE, UNSPECIFIED (4) Diabetes mellitus Assessment/Plan: -A1c at 7.4 -Renal-low sodium/diabetic diet -BGM AC HS -Levemir 25 U QAM -ISS Problems reviewed: Yes Code(s): E11.9 - TYPE 2 DIABETES MELLITUS WITHOUT COMPLICATIONS Qualifiers: Diabetes mellitus type: type 2 Assessment/Plan see problem list
--- NOTE | 2018-11-19 11:51 | PN ---
Progress Note, Physician History of Present Illness: pulmonary alert,no distress,-sob,-cp - Current Medication List Current Medications: Active Medications Acetaminophen (Tylenol -) 650 mg PO Q6H PRN PRN Reason: PAIN LEVEL 1-5 Last Admin: 11/19/18 07:54 Dose: 650 mg Albuterol/Ipratropium (Duoneb -) 1 amp NEB RQID [facility] Last Admin: 11/19/18 11:36 Dose: 1 amp Aspirin (Ecotrin -) 81 mg PO DAILY [facility] Last Admin: 11/19/18 10:10 Dose: 81 mg Atorvastatin Calcium (Lipitor -) 40 mg PO HS [facility] Last Admin: 11/18/18 21:18 Dose: 40 mg Furosemide (Lasix Injection -) 40 mg IVPUSH BID@0600,1400 [facility] Last Admin: 11/19/18 06:25 Dose: 40 mg Heparin Sodium (Porcine) (Heparin -) 5,000 unit SQ BID [facility] Last Admin: 11/19/18 10:10 Dose: 5,000 unit Hydrochlorothiazide (Hctz -) 25 mg PO DAILY [facility] Last Admin: 11/19/18 10:10 Dose: 25 mg Insulin Aspart (Novolog Vial Sliding Scale -) 1 vial SQ ACHS [facility]; Protocol Last Admin: 11/19/18 06:26 Dose: Not Given Insulin Detemir (Levemir Vial) 25 units SQ AM [facility] Last Admin: 11/19/18 06:26 Dose: Not Given Levothyroxine Sodium (Synthroid -) 150 mcg PO DAILY@0700 [facility] Last Admin: 11/19/18 06:25 Dose: 150 mcg Losartan Potassium (Cozaar -) 50 mg PO DAILY [facility] Last Admin: 11/19/18 10:10 Dose: 50 mg - Objective Vital Signs: Vital Signs Temperature 97.7 F 11/19/18 05:40 Pulse Rate 79 11/19/18 05:40 Respiratory Rate 20 11/19/18 05:40 Blood Pressure 155/88 11/19/18 05:40 O2 Sat by Pulse Oximetry (%) 97 11/19/18 08:15 Constitutional: Yes: No Distress, Calm, Obese Eyes: Yes: WNL HENT: Yes: WNL Neck: Yes: WNL Cardiovascular: Yes: Regular Rate and Rhythm, S1, S2 Respiratory: Yes: Diminished Gastrointestinal: Yes: Normal Bowel Sounds, Soft, Abdomen, Obese Extremities: Yes: WNL Edema: Yes Labs: CBC, BMP Laboratory Tests 11/18/18 11:44 ABG pH 7.40 ABG pCO2 at Pt Temp 41.7 ABG pO2 at Pt Temp 123 H ABG HCO3 25.9 ABG O2 Sat (Measured) 98.6 H Problem List - Problems (1) Acute respiratory failure with hypoxia and hypercapnia Code(s): J96.01 - ACUTE RESPIRATORY FAILURE WITH HYPOXIA; J96.02 - ACUTE RESPIRATORY FAILURE WITH HYPERCAPNIA Assessment/Plan Problem List - Problems (1) CHF (congestive heart failure) Code(s): I50.9 - HEART FAILURE, UNSPECIFIED (2) COPD (chronic obstructive pulmonary disease) Code(s): J44.9 - CHRONIC OBSTRUCTIVE PULMONARY DISEASE, UNSPECIFIED (3) SOB (shortness of breath) Code(s): R06.02 - SHORTNESS OF BREATH (4) REBEKAH (acute kidney injury) Code(s): N17.9 - ACUTE KIDNEY FAILURE, UNSPECIFIED (5) CKD (chronic kidney disease) Code(s): N18.9 - CHRONIC KIDNEY DISEASE, UNSPECIFIED (6) Diabetes mellitus Code(s): E11.9 - TYPE 2 DIABETES MELLITUS WITHOUT COMPLICATIONS Qualifiers: Diabetes mellitus type: type 2 (7) Morbid (severe) obesity due to excess calories Code(s): E66.01 - MORBID (SEVERE) OBESITY DUE TO EXCESS CALORIES (8) Sleep apnea with use of continuous positive airway pressure (CPAP) Code(s): G47.30 - SLEEP APNEA, UNSPECIFIED 9 ACUTE HYPOXEMIC/HYPERCAPNEIC RESPIRATORY FAILURE 10 ? OHS Assessment/Plan CONTINUE NIPPV HS AND PRN TITRATE O2 TO KEEP SAT GREATER THAN 90% DUONEBS TID DVT PROPHYLAXSIS GLYCEMIC CONTROL CONSIDER BARIATRIC SURGERY EVALUATION MONITOR LYTES,RENAL FUNCTION DR OSUNA
--- NOTE | 2018-11-19 12:51 | PN ---
Progress Note, Physician History of Present Illness: Pt seen and examined at bedside. She still complains of shortness of breath at night. - Current Medication List Current Medications: Active Medications Acetaminophen (Tylenol -) 650 mg PO Q6H PRN PRN Reason: PAIN LEVEL 1-5 Last Admin: 11/19/18 07:54 Dose: 650 mg Albuterol/Ipratropium (Duoneb -) 1 amp NEB RQID [facility] Last Admin: 11/19/18 11:36 Dose: 1 amp Aspirin (Ecotrin -) 81 mg PO DAILY [facility] Last Admin: 11/19/18 10:10 Dose: 81 mg Atorvastatin Calcium (Lipitor -) 40 mg PO HS [facility] Last Admin: 11/18/18 21:18 Dose: 40 mg Furosemide (Lasix Injection -) 40 mg IVPUSH BID@0600,1400 [facility] Last Admin: 11/19/18 06:25 Dose: 40 mg Heparin Sodium (Porcine) (Heparin -) 5,000 unit SQ BID [facility] Last Admin: 11/19/18 10:10 Dose: 5,000 unit Hydrochlorothiazide (Hctz -) 25 mg PO DAILY [facility] Last Admin: 11/19/18 10:10 Dose: 25 mg Insulin Aspart (Novolog Vial Sliding Scale -) 1 vial SQ ACHS [facility]; Protocol Last Admin: 11/19/18 06:26 Dose: Not Given Insulin Detemir (Levemir Vial) 25 units SQ AM [facility] Last Admin: 11/19/18 06:26 Dose: Not Given Levothyroxine Sodium (Synthroid -) 150 mcg PO DAILY@0700 [facility] Last Admin: 11/19/18 06:25 Dose: 150 mcg Losartan Potassium (Cozaar -) 50 mg PO DAILY [facility] Last Admin: 11/19/18 10:10 Dose: 50 mg - Objective Vital Signs: Vital Signs Temperature 97.7 F 11/19/18 05:40 Pulse Rate 79 11/19/18 05:40 Respiratory Rate 20 11/19/18 05:40 Blood Pressure 155/88 11/19/18 05:40 O2 Sat by Pulse Oximetry (%) 97 11/19/18 08:15 Constitutional: Yes: Calm Eyes: Yes: Conjunctiva Clear HENT: Yes: Atraumatic Neck: Yes: Supple Cardiovascular: Yes: S1, S2 Respiratory: Yes: On Nasal O2 Gastrointestinal: Yes: Soft, Abdomen, Obese Genitourinary: Yes: WNL Musculoskeletal: Yes: WNL Edema: Yes Edema: LLE: Trace, RLE: Trace Neurological: Yes: Oriented Psychiatric: Yes: Oriented Labs: CBC, BMP 11/16/18 07:45 11/18/18 05:33 INR, PTT INR 1.03 (0.83-1.09) 11/15/18 10:05 Problem List - Problems (1) CHF (congestive heart failure) Code(s): I50.9 - HEART FAILURE, UNSPECIFIED (2) HLD (hyperlipidemia) Code(s): E78.5 - HYPERLIPIDEMIA, UNSPECIFIED (3) HTN (hypertension) Code(s): I10 - ESSENTIAL (PRIMARY) HYPERTENSION (4) CKD (chronic kidney disease) Code(s): N18.9 - CHRONIC KIDNEY DISEASE, UNSPECIFIED Assessment/Plan Current Medications Generic Name Dose Route Start Last Admin Trade Name Freq PRN Reason Stop Dose Admin Acetaminophen 650 mg 11/16/18 21:22 11/19/18 07:54 Tylenol - PO 650 mg Q6H PRN Administration PAIN LEVEL 1-5 Albuterol/Ipratropium 1 amp 11/15/18 16:00 11/19/18 11:36 Duoneb - NEB 1 amp RQID [facility] Administration Aspirin 81 mg 11/16/18 10:00 11/19/18 10:10 Ecotrin - PO 81 mg DAILY [facility] Administration Atorvastatin Calcium 40 mg 11/15/18 22:00 11/18/18 21:18 Lipitor - PO 40 mg HS [facility] Administration Furosemide 40 mg 11/15/18 14:00 11/19/18 06:25 Lasix Injection - IVPUSH 40 mg BID@0600,1400 [facility] Administration Heparin Sodium (Porcine) 5,000 unit 11/15/18 22:00 11/19/18 10:10 Heparin - SQ 5,000 unit BID [facility] Administration Hydrochlorothiazide 25 mg 11/18/18 12:39 11/19/18 10:10 Hctz - PO 25 mg DAILY [facility] Administration Insulin Aspart 1 vial 11/16/18 22:00 11/19/18 06:26 Novolog Vial Sliding Scale - SQ Not Given ACHS [facility] Protocol Insulin Detemir 25 units 11/17/18 07:00 11/19/18 06:26 Levemir Vial SQ Not Given AM [facility] Levothyroxine Sodium 150 mcg 11/16/18 07:00 11/19/18 06:25 Synthroid - PO 150 mcg DAILY@0700 [facility] Administration Losartan Potassium 50 mg 11/16/18 10:00 11/19/18 10:10 Cozaar - PO 50 mg DAILY [facility] Administration Impression 1. CKD 2. REBEKAH 3. morbid obesity 4. hx of bariatric surgery 5. DM 6. HTN 7. hypothyroidism 8. ovarian cyst Plan - cont lasix and losartan - hctz dose increased - monitor volume status - monitor lyte - stopped ramipril as she is on losartan - avoid nsiad or nephrotoxins
[2018-11-19 14:18] LABS: BLOOD UREA NITROGEN 56.3 mg/dL (7-18); CALCIUM 8.1 mg/dL (8.5-10.1); CREATININE 2.7 mg/dL (0.55-1.3); POTASSIUM 4.5 mmol/L (3.5-5.1)
[2018-11-19] MEDS ORDERED: PT OWN MED DRAWER 7, Y5N ONE ×2 (20:58→22:32)
[2018-11-19] MEDS: ATORVASTATIN CA 40 MG TABLET (FP) PO SCH (21:13)
[2018-11-20] MEDS: FUROSEMIDE 40 MG/4 ML INJECTABLE VIAL IVPUSH SCH (06:13)
[2018-11-20] MEDS: ACETAMINOPHEN 325 MG TABLET (FP) PO PRN ×2 (06:13→21:26)
[2018-11-20] MEDS: LEVOTHYROXINE NA 150 MCG TABLET PO SCH (06:15)
[2018-11-20] MEDS: INSULIN (LEVEMIR) 100 UNITS/ML UNITS SQ SCH (06:20)
[2018-11-20] MEDS: INSULIN SLIDING SCALE (NOVOLOG) 1 VIAL SQ SCH ×4 (06:21→21:27)
[2018-11-20] MEDS: ALBUTEROL SO4 2.5/IPRATROPIUM 0.5 INH SOL 3 ML VIAL.NEB. NEB SCH ×4 (08:00→21:47)
[2018-11-20 08:32] LABS: BILIRUBIN,TOTAL 0.2 mg/dL (0.2-1); BLOOD UREA NITROGEN 60.6 mg/dL (7-18); CALCIUM 8.6 mg/dL (8.5-10.1); POTASSIUM 4.7 mmol/L (3.5-5.1); TOT PROT 7.2 g/dl (6.4-8.2)
[2018-11-20] MEDS: LOSARTAN POTASSIUM 50 MG TABLET (FP) PO SCH (09:43)
[2018-11-20] MEDS: HYDROCHLOROTHIAZIDE 12.5 MG CAPSULE (FP) PO SCH (09:43)
[2018-11-20] MEDS: ASPIRIN COATED 81 MG TABLET.EC PO SCH (09:43)
[2018-11-20] MEDS: HEPARIN NA (PORCINE) 5,000 UNITS/ML 1ML VIAL SQ SCH ×2 (09:44→21:26)
[2018-11-20] MEDS ORDERED: guaiFENesin/D-M SUGAR-FREE/ACLHOL-FREE 118 ML BOTTLE PO PRN (10:55)
--- NOTE | 2018-11-20 10:55 | PN ---
Progress Note, Physician Chief Complaint: Acute on Chronic CHF Exacerbation History of Present Illness: Previous note and events reviewed awake and alert NAD complain of constipation sts her breathing is better complain of productive cough with pleuritic pain - Current Medication List Current Medications: Active Medications Acetaminophen (Tylenol -) 650 mg PO Q6H PRN PRN Reason: PAIN LEVEL 1-5 Last Admin: 11/20/18 06:13 Dose: 650 mg Albuterol/Ipratropium (Duoneb -) 1 amp NEB RQID [facility] Last Admin: 11/19/18 20:24 Dose: 1 amp Aspirin (Ecotrin -) 81 mg PO DAILY [facility] Last Admin: 11/20/18 09:43 Dose: 81 mg Atorvastatin Calcium (Lipitor -) 40 mg PO HS [facility] Last Admin: 11/19/18 21:13 Dose: 40 mg Furosemide (Lasix Injection -) 40 mg IVPUSH BID@0600,1400 [facility] Last Admin: 11/20/18 06:13 Dose: 40 mg Heparin Sodium (Porcine) (Heparin -) 5,000 unit SQ BID [facility] Last Admin: 11/20/18 09:44 Dose: 5,000 unit Hydrochlorothiazide (Hctz -) 25 mg PO DAILY [facility] Last Admin: 11/20/18 09:43 Dose: 25 mg Insulin Aspart (Novolog Vial Sliding Scale -) 1 vial SQ ACHS [facility]; Protocol Last Admin: 11/20/18 06:21 Dose: Not Given Insulin Detemir (Levemir Vial) 25 units SQ AM [facility] Last Admin: 11/20/18 06:20 Dose: 25 units Levothyroxine Sodium (Synthroid -) 150 mcg PO DAILY@0700 [facility] Last Admin: 11/20/18 06:15 Dose: 150 mcg Losartan Potassium (Cozaar -) 50 mg PO DAILY [facility] Last Admin: 11/20/18 09:43 Dose: 50 mg - Objective Vital Signs: Vital Signs Temperature 98.5 F 11/20/18 10:00 Pulse Rate 81 11/20/18 10:00 Respiratory Rate 20 11/20/18 10:00 Blood Pressure 149/81 11/20/18 10:00 O2 Sat by Pulse Oximetry (%) 100 11/20/18 09:00 Constitutional: Yes: No Distress, Calm Eyes: Yes: Conjunctiva Clear HENT: Yes: Atraumatic Cardiovascular: Yes: Regular Rate and Rhythm Respiratory: Yes: Regular, Diminished, On Nasal O2 Gastrointestinal: Yes: Normal Bowel Sounds, Soft, Abdomen, Obese Musculoskeletal: Yes: WNL Extremities: Yes: WNL Edema: Yes (lower extremity) Edema: LLE: Trace, RLE: Trace Neurological: Yes: Alert, Oriented Psychiatric: Yes: Alert, Oriented Labs: CBC, BMP 11/16/18 07:45 11/20/18 07:10 INR, PTT INR 1.03 (0.83-1.09) 11/15/18 10:05 Problem List - Problems (1) Acute respiratory failure with hypoxia and hypercapnia Assessment/Plan: -Pulm on board -Bipap HS -O2 via NC -keep SpO2 >90% -Bronchodilators Code(s): J96.01 - ACUTE RESPIRATORY FAILURE WITH HYPOXIA; J96.02 - ACUTE RESPIRATORY FAILURE WITH HYPERCAPNIA (2) CHF (congestive heart failure) Assessment/Plan: -Pulm on board -Bipap HS -O2 via NC -keep SpO2 >90% -Bronchodilators -Cardiology on board -Lasix BID -daily weights -strict I&Os -CXR shows large heart, congestive changes Code(s): I50.9 - HEART FAILURE, UNSPECIFIED (3) COPD (chronic obstructive pulmonary disease) Assessment/Plan: -Pulm on board -Bipap HS -O2 via NC -keep SpO2 >90% -Bronchodilators -CXR shows large heart, congestive changes Code(s): J44.9 - CHRONIC OBSTRUCTIVE PULMONARY DISEASE, UNSPECIFIED (4) HLD (hyperlipidemia) Assessment/Plan: -Atorvastatin Code(s): E78.5 - HYPERLIPIDEMIA, UNSPECIFIED (5) HTN (hypertension) Assessment/Plan: -HCTZ, Losartan -low Na diet Code(s): I10 - ESSENTIAL (PRIMARY) HYPERTENSION (6) CKD (chronic kidney disease) Assessment/Plan: -Renal on board -BUN/Cr 60.6/3.0 -monitor renal function daily -Renal US shows increased dilatation of left renal collecting system, developmen of minimal dilatation of the right renal collecting system , kidneys otherwise appear unremarkable Code(s): N18.9 - CHRONIC KIDNEY DISEASE, UNSPECIFIED (7) Diabetes mellitus Assessment/Plan: -BG ACHS -ISS -Levemir -HgA1c 7.4% -diabetic diet Code(s): E11.9 - TYPE 2 DIABETES MELLITUS WITHOUT COMPLICATIONS Qualifiers: Diabetes mellitus type: type 2 Assessment/Plan see problem list dvt ppx
[2018-11-20] MEDS: POLYETHYLENE GLYCOL 3350 119 GM BTL PO SCH (11:27)
[2018-11-20] MEDS ORDERED: INSULIN (NOVOLOG) ASPART 100 UNITS/ML 10ML VIAL ONE ×2 (12:10→21:16)
[2018-11-20] MEDS: LIDOCAINE 5% TOPICAL PATCH TP SCH (12:30)
--- NOTE | 2018-11-20 13:13 | PN ---
Progress Note, Physician History of Present Illness: Pt seen and examined at bedside. She is awake and alert. She has SOB at night. - Current Medication List Current Medications: Active Medications Acetaminophen (Tylenol -) 650 mg PO Q6H PRN PRN Reason: PAIN LEVEL 1-5 Last Admin: 11/20/18 06:13 Dose: 650 mg Albuterol/Ipratropium (Duoneb -) 1 amp NEB RQID [facility] Last Admin: 11/19/18 20:24 Dose: 1 amp Aspirin (Ecotrin -) 81 mg PO DAILY [facility] Last Admin: 11/20/18 09:43 Dose: 81 mg Atorvastatin Calcium (Lipitor -) 40 mg PO HS [facility] Last Admin: 11/19/18 21:13 Dose: 40 mg Furosemide (Lasix Injection -) 40 mg IVPUSH BID@0600,1400 [facility] Last Admin: 11/20/18 06:13 Dose: 40 mg Guaifenesin (Diabetic Tussin Dm -) 10 ml PO Q6H PRN PRN Reason: COUGH Heparin Sodium (Porcine) (Heparin -) 5,000 unit SQ BID [facility] Last Admin: 11/20/18 09:44 Dose: 5,000 unit Hydrochlorothiazide (Hctz -) 25 mg PO DAILY [facility] Last Admin: 11/20/18 09:43 Dose: 25 mg Insulin Aspart (Novolog Vial Sliding Scale -) 1 vial SQ ACHS [facility]; Protocol Last Admin: 11/20/18 12:21 Dose: 3 units Insulin Detemir (Levemir Vial) 25 units SQ AM [facility] Last Admin: 11/20/18 06:20 Dose: 25 units Levothyroxine Sodium (Synthroid -) 150 mcg PO DAILY@0700 [facility] Last Admin: 11/20/18 06:15 Dose: 150 mcg Lidocaine (Lidoderm Patch -) 1 patch TP DAILY [facility] Last Admin: 11/20/18 12:30 Dose: 1 patch Losartan Potassium (Cozaar -) 50 mg PO DAILY [facility] Last Admin: 11/20/18 09:43 Dose: 50 mg Miscellaneous (Lidoderm Patch Removal) 1 each MC DAILY@2200 [facility] Polyethylene Glycol (Miralax (For Daily Use) -) 17 gm PO DAILY [facility] Last Admin: 11/20/18 11:27 Dose: 17 gm - Objective Vital Signs: Vital Signs Temperature 98.5 F 11/20/18 10:00 Pulse Rate 81 11/20/18 10:00 Respiratory Rate 20 11/20/18 10:00 Blood Pressure 149/81 11/20/18 10:00 O2 Sat by Pulse Oximetry (%) 100 11/20/18 09:00 Constitutional: Yes: Calm Eyes: Yes: Conjunctiva Clear HENT: Yes: Atraumatic Neck: Yes: Supple Cardiovascular: Yes: S1, S2 Respiratory: Yes: CTA Bilaterally, On Nasal O2 Gastrointestinal: Yes: Normal Bowel Sounds, Soft, Abdomen, Obese Musculoskeletal: Yes: WNL Edema: Yes Edema: LLE: Trace, RLE: Trace Neurological: Yes: Oriented Psychiatric: Yes: Oriented Labs: CBC, BMP 11/16/18 07:45 11/20/18 07:10 INR, PTT INR 1.03 (0.83-1.09) 11/15/18 10:05 Problem List - Problems (1) CHF (congestive heart failure) Code(s): I50.9 - HEART FAILURE, UNSPECIFIED (2) HLD (hyperlipidemia) Code(s): E78.5 - HYPERLIPIDEMIA, UNSPECIFIED (3) HTN (hypertension) Code(s): I10 - ESSENTIAL (PRIMARY) HYPERTENSION (4) CKD (chronic kidney disease) Code(s): N18.9 - CHRONIC KIDNEY DISEASE, UNSPECIFIED Assessment/Plan Current Medications Generic Name Dose Route Start Last Admin Trade Name Freq PRN Reason Stop Dose Admin Acetaminophen 650 mg 11/16/18 21:22 11/20/18 06:13 Tylenol - PO 650 mg Q6H PRN Administration PAIN LEVEL 1-5 Albuterol/Ipratropium 1 amp 11/15/18 16:00 11/19/18 20:24 Duoneb - NEB 1 amp RQID [facility] Administration Aspirin 81 mg 11/16/18 10:00 11/20/18 09:43 Ecotrin - PO 81 mg DAILY [facility] Administration Atorvastatin Calcium 40 mg 11/15/18 22:00 11/19/18 21:13 Lipitor - PO 40 mg HS [facility] Administration Furosemide 40 mg 11/15/18 14:00 11/20/18 06:13 Lasix Injection - IVPUSH 40 mg BID@0600,1400 [facility] Administration Guaifenesin 10 ml 11/20/18 10:55 Diabetic Tussin Dm - PO Q6H PRN COUGH Heparin Sodium (Porcine) 5,000 unit 11/15/18 22:00 11/20/18 09:44 Heparin - SQ 5,000 unit BID [facility] Administration Hydrochlorothiazide 25 mg 11/18/18 12:39 11/20/18 09:43 Hctz - PO 25 mg DAILY [facility] Administration Insulin Aspart 1 vial 11/16/18 22:00 11/20/18 12:21 Novolog Vial Sliding Scale - SQ 3 units ACHS [facility] Administration Protocol Insulin Detemir 25 units 11/17/18 07:00 11/20/18 06:20 Levemir Vial SQ 25 units AM [facility] Administration Levothyroxine Sodium 150 mcg 11/16/18 07:00 11/20/18 06:15 Synthroid - PO 150 mcg DAILY@0700 [facility] Administration Lidocaine 1 patch 11/20/18 12:00 11/20/18 12:30 Lidoderm Patch - TP 1 patch DAILY [facility] Administration Losartan Potassium 50 mg 11/16/18 10:00 11/20/18 09:43 Cozaar - PO 50 mg DAILY [facility] Administration Miscellaneous 1 each 11/20/18 22:00 Lidoderm Patch Removal MC DAILY@2200 [facility] Polyethylene Glycol 17 gm 11/20/18 11:00 11/20/18 11:27 Miralax (For Daily Use) - PO 17 gm DAILY [facility] Administration Impression 1. CKD 2. REBEKAH 3. morbid obesity 4. hx of bariatric surgery 5. DM 6. HTN 7. hypothyroidism 8. ovarian cyst Plan - switch lasix to PO - cont losartan - monitor renal function - monitor volume status - monitor lyte - avoid nsiad or nephrotoxins
[2018-11-20] MEDS ORDERED: PT OWN MED DRAWER 7, Y5N ONE ×2 (13:23→19:10)
--- NOTE | 2018-11-20 13:30 | PN ---
Progress Note, Physician History of Present Illness: pulmonary alert,comfortable on o2,-sob - Current Medication List Current Medications: Active Medications Acetaminophen (Tylenol -) 650 mg PO Q6H PRN PRN Reason: PAIN LEVEL 1-5 Last Admin: 11/20/18 06:13 Dose: 650 mg Albuterol/Ipratropium (Duoneb -) 1 amp NEB RQID [facility] Last Admin: 11/19/18 20:24 Dose: 1 amp Aspirin (Ecotrin -) 81 mg PO DAILY [facility] Last Admin: 11/20/18 09:43 Dose: 81 mg Atorvastatin Calcium (Lipitor -) 40 mg PO HS [facility] Last Admin: 11/19/18 21:13 Dose: 40 mg Furosemide (Lasix -) 40 mg PO BID@0600,1400 [facility] Guaifenesin (Diabetic Tussin Dm -) 10 ml PO Q6H PRN PRN Reason: COUGH Heparin Sodium (Porcine) (Heparin -) 5,000 unit SQ BID [facility] Last Admin: 11/20/18 09:44 Dose: 5,000 unit Hydrochlorothiazide (Hctz -) 25 mg PO DAILY [facility] Last Admin: 11/20/18 09:43 Dose: 25 mg Insulin Aspart (Novolog Vial Sliding Scale -) 1 vial SQ ACHS [facility]; Protocol Last Admin: 11/20/18 12:21 Dose: 3 units Insulin Detemir (Levemir Vial) 25 units SQ AM [facility] Last Admin: 11/20/18 06:20 Dose: 25 units Levothyroxine Sodium (Synthroid -) 150 mcg PO DAILY@0700 [facility] Last Admin: 11/20/18 06:15 Dose: 150 mcg Lidocaine (Lidoderm Patch -) 1 patch TP DAILY [facility] Last Admin: 11/20/18 12:30 Dose: 1 patch Losartan Potassium (Cozaar -) 50 mg PO DAILY [facility] Last Admin: 11/20/18 09:43 Dose: 50 mg Miscellaneous (Lidoderm Patch Removal) 1 each MC DAILY@2200 [facility] Polyethylene Glycol (Miralax (For Daily Use) -) 17 gm PO DAILY [facility] Last Admin: 11/20/18 11:27 Dose: 17 gm - Objective Vital Signs: Vital Signs Temperature 98.5 F 11/20/18 10:00 Pulse Rate 81 11/20/18 10:00 Respiratory Rate 20 11/20/18 10:00 Blood Pressure 149/81 11/20/18 10:00 O2 Sat by Pulse Oximetry (%) 100 11/20/18 09:00 Constitutional: Yes: Calm, Obese Eyes: Yes: WNL HENT: Yes: WNL Neck: Yes: WNL Cardiovascular: Yes: Regular Rate and Rhythm, S1, S2 Respiratory: Yes: CTA Bilaterally Gastrointestinal: Yes: Normal Bowel Sounds, Soft Extremities: Yes: WNL Edema: Yes Edema: LLE: Trace, RLE: Trace Labs: CBC, BMP 11/20/18 07:10 INR, PTT INR 1.03 (0.83-1.09) 11/15/18 10:05 Problem List - Problems (1) Acute respiratory failure with hypoxia and hypercapnia Code(s): J96.01 - ACUTE RESPIRATORY FAILURE WITH HYPOXIA; J96.02 - ACUTE RESPIRATORY FAILURE WITH HYPERCAPNIA Assessment/Plan Problem List - Problems (1) CHF (congestive heart failure) Code(s): I50.9 - HEART FAILURE, UNSPECIFIED (2) COPD (chronic obstructive pulmonary disease) Code(s): J44.9 - CHRONIC OBSTRUCTIVE PULMONARY DISEASE, UNSPECIFIED (3) SOB (shortness of breath) Code(s): R06.02 - SHORTNESS OF BREATH (4) REBEKAH (acute kidney injury) Code(s): N17.9 - ACUTE KIDNEY FAILURE, UNSPECIFIED (5) CKD (chronic kidney disease) Code(s): N18.9 - CHRONIC KIDNEY DISEASE, UNSPECIFIED (6) Diabetes mellitus Code(s): E11.9 - TYPE 2 DIABETES MELLITUS WITHOUT COMPLICATIONS Qualifiers: Diabetes mellitus type: type 2 (7) Morbid (severe) obesity due to excess calories Code(s): E66.01 - MORBID (SEVERE) OBESITY DUE TO EXCESS CALORIES (8) Sleep apnea with use of continuous positive airway pressure (CPAP) Code(s): G47.30 - SLEEP APNEA, UNSPECIFIED 9 ACUTE HYPOXEMIC/HYPERCAPNEIC RESPIRATORY FAILURE 10 ? OHS Assessment/Plan CONTINUE NIPPV HS AND PRN O2 TO KEEP 90% DUONEBS DVT PROPHYLAXSIS GLYCEMIC CONTROL MONITOR LYTES,RENAL FUNCTION DR OSUNA
[2018-11-20] MEDS: FUROSEMIDE 40 MG TABLET (FP) PO SCH (13:46)
[2018-11-20] MEDS: ATORVASTATIN CA 40 MG TABLET (FP) PO SCH (21:26)
[2018-11-20] MEDS: LIDOCAINE PATCH REMOVAL MC SCH (22:20)
[2018-11-21] MEDS: LEVOTHYROXINE NA 150 MCG TABLET PO SCH (06:18)
[2018-11-21] MEDS: FUROSEMIDE 40 MG TABLET (FP) PO SCH ×2 (06:18→14:06)
[2018-11-21] MEDS: INSULIN SLIDING SCALE (NOVOLOG) 1 VIAL SQ SCH ×4 (06:21→22:01)
[2018-11-21] MEDS: INSULIN (LEVEMIR) 100 UNITS/ML UNITS SQ SCH (07:58)
[2018-11-21] MEDS: ALBUTEROL SO4 2.5/IPRATROPIUM 0.5 INH SOL 3 ML VIAL.NEB. NEB SCH ×4 (08:00→20:40)
[2018-11-21] MEDS ORDERED: INSULIN (LEVEMIR) 100 UNITS/ML UNITS SQ ONE (08:11)
[2018-11-21] MEDS: HYDROCHLOROTHIAZIDE 12.5 MG CAPSULE (FP) PO SCH (09:15)
[2018-11-21] MEDS: LOSARTAN POTASSIUM 50 MG TABLET (FP) PO SCH (09:16)
[2018-11-21] MEDS: ASPIRIN COATED 81 MG TABLET.EC PO SCH (09:16)
[2018-11-21] MEDS: HEPARIN NA (PORCINE) 5,000 UNITS/ML 1ML VIAL SQ SCH ×2 (09:17→22:05)
[2018-11-21] MEDS: LIDOCAINE 5% TOPICAL PATCH TP SCH (09:20)
[2018-11-21 09:47] LABS: HEMATOCRIT 31.4 % (32.4-45.2); HEMOGLOBIN 10.4 GM/dL (10.7-15.3); MCH 29.3 pg (25.7-33.7); MCHC 33.1 g/dl (32.0-36.0); MEAN CELL VOLUME 88.4 fl (80-96); MEAN PLT VOLUME 9.8 fl (7.5-11.1); PLATELET COUNT 255 K/MM3 (134-434); RBC 3.55 M/mm3 (3.60-5.2); RDW 14.7 % (11.6-15.6); WHITE BLOOD COUNT 8.6 K/mm3 (4.0-10.0)
[2018-11-21 10:15] LABS: BLOOD UREA NITROGEN 63.5 mg/dL (7-18); CALCIUM 8.5 mg/dL (8.5-10.1); CREATININE 2.9 mg/dL (0.55-1.3); POTASSIUM 4.8 mmol/L (3.5-5.1)
--- NOTE | 2018-11-21 10:36 | PN ---
Progress Note (short form) - Note Progress Note: Awake and alert. NAD on NC O2. Used NIPPV overnight. No CP. No acute events overnight. Intake & Output 11/18/18 11/19/18 11/20/18 11/21/18 23:59 23:59 23:59 23:59 Intake Total 276 389 [id number] Balance 990 819 8667 Weight 313 lb 312 lb 12.8 oz 312 lb 312 lb 8 oz Last Vital Signs Temp Pulse Resp BP Pulse Ox 98.5 F 80 20 121/72 98 11/21/18 05:52 11/21/18 05:52 11/21/18 05:52 11/21/18 05:52 11/20/18 23:15 Active Medications Acetaminophen (Tylenol -) 650 mg PO Q6H PRN PRN Reason: PAIN LEVEL 1-5 Last Admin: 11/20/18 21:26 Dose: 650 mg Albuterol/Ipratropium (Duoneb -) 1 amp NEB RQID [facility] Last Admin: 11/20/18 21:47 Dose: 1 amp Aspirin (Ecotrin -) 81 mg PO DAILY [facility] Last Admin: 11/21/18 09:16 Dose: 81 mg Atorvastatin Calcium (Lipitor -) 40 mg PO HS [facility] Last Admin: 11/20/18 21:26 Dose: 40 mg Furosemide (Lasix -) 40 mg PO BID@0600,1400 [facility] Last Admin: 11/21/18 06:18 Dose: 40 mg Guaifenesin (Diabetic Tussin Dm -) 10 ml PO Q6H PRN PRN Reason: COUGH Heparin Sodium (Porcine) (Heparin -) 5,000 unit SQ BID [facility] Last Admin: 11/21/18 09:17 Dose: 5,000 unit Hydrochlorothiazide (Hctz -) 25 mg PO DAILY [facility] Last Admin: 11/21/18 09:15 Dose: 25 mg Insulin Aspart (Novolog Vial Sliding Scale -) 1 vial SQ ACHS [facility]; Protocol Last Admin: 11/21/18 06:21 Dose: Not Given Insulin Detemir (Levemir Vial) 25 units SQ AM [facility] Last Admin: 11/21/18 07:58 Dose: Not Given Levothyroxine Sodium (Synthroid -) 150 mcg PO DAILY@0700 [facility] Last Admin: 11/21/18 06:18 Dose: 150 mcg Lidocaine (Lidoderm Patch -) 1 patch TP DAILY [facility] Last Admin: 11/21/18 09:20 Dose: 1 patch Losartan Potassium (Cozaar -) 50 mg PO DAILY [facility] Last Admin: 11/21/18 09:16 Dose: 50 mg Miscellaneous (Lidoderm Patch Removal) 1 each MC DAILY@2200 [facility] Last Admin: 11/20/18 22:20 Dose: 1 each Polyethylene Glycol (Miralax (For Daily Use) -) 17 gm PO DAILY [facility] Last Admin: 11/20/18 11:27 Dose: 17 gm Constitutional: Yes: Awake and alert, NAD on NC O2 Eyes: Yes: EOM Intact HENT: Yes: Normocephalic Neck: Yes: Trachea Midline Cardiovascular: Yes: Regular Rate and Rhythm, S1 Respiratory: Yes: Clear, no wheeze Gastrointestinal: Yes: Normal Bowel Sounds, Abdomen, Obese Edema: LLE: 1+, RLE: 1+ Integumentary: Yes: WNL Neurological: Yes: Alert Psychiatric: Yes: Alert Labs: Laboratory Results - last 24 hr 11/20/18 11/20/18 11/20/18 12:06 16:45 21:09 WBC RBC Hgb Hct MCV MCH MCHC RDW Plt Count MPV Sodium Potassium Chloride Carbon Dioxide Anion Gap BUN Creatinine Est GFR (CKD-EPI)AfAm Est GFR (CKD-EPI)NonAf POC Glucometer 164 120 228 Random Glucose Calcium 11/21/18 11/21/18 11/21/18 06:19 07:44 08:35 WBC RBC Hgb Hct MCV MCH MCHC RDW Plt Count MPV Sodium 140 Potassium 4.8 Chloride 102 Carbon Dioxide 28 Anion Gap 10 BUN 63.5 H Creatinine 2.9 H Est GFR (CKD-EPI)AfAm 21.45 Est GFR (CKD-EPI)NonAf 18.50 POC Glucometer 70 82 Random Glucose 79 Calcium 8.5 11/21/18 08:35 WBC 8.6 RBC 3.55 L Hgb 10.4 L Hct 31.4 L MCV 88.4 MCH 29.3 MCHC 33.1 RDW 14.7 Plt Count 255 MPV 9.8 Sodium Potassium Chloride Carbon Dioxide Anion Gap BUN Creatinine Est GFR (CKD-EPI)AfAm Est GFR (CKD-EPI)NonAf POC Glucometer Random Glucose Calcium Problem List - Problems (1) CHF (congestive heart failure) Code(s): I50.9 - HEART FAILURE, UNSPECIFIED (2) COPD (chronic obstructive pulmonary disease) Code(s): J44.9 - CHRONIC OBSTRUCTIVE PULMONARY DISEASE, UNSPECIFIED (3) SOB (shortness of breath) Code(s): R06.02 - SHORTNESS OF BREATH (4) REBEKAH (acute kidney injury) Code(s): N17.9 - ACUTE KIDNEY FAILURE, UNSPECIFIED (5) CKD (chronic kidney disease) Code(s): N18.9 - CHRONIC KIDNEY DISEASE, UNSPECIFIED (6) Diabetes mellitus Code(s): E11.9 - TYPE 2 DIABETES MELLITUS WITHOUT COMPLICATIONS Qualifiers: Diabetes mellitus type: type 2 (7) Morbid (severe) obesity due to excess calories Code(s): E66.01 - MORBID (SEVERE) OBESITY DUE TO EXCESS CALORIES (8) Sleep apnea with use of continuous positive airway pressure (CPAP) Code(s): G47.30 - SLEEP APNEA, UNSPECIFIED Assessment/Plan CONTINUE NIPPV HS AND PRN DUONEBS DVT PROPHYLAXIS PATIENT HAS HOME O2 NO PULMONARY CONTRAINDICATION FOR DC FOLLOW UP IN OFFICE TO REASSESS HOME PAP DEVICE DR LEE
[2018-11-21] MEDS: POLYETHYLENE GLYCOL 3350 119 GM BTL PO SCH (10:45)
--- NOTE | 2018-11-21 11:04 | PN ---
Progress Note, Physician Chief Complaint: Acute on Chronic CHF Exacerbation History of Present Illness: Previous note and events reviewed awake and alert NAD sts her breathing is better complain of productive cough BUN/Cr elevated - Current Medication List Current Medications: Active Medications Acetaminophen (Tylenol -) 650 mg PO Q6H PRN PRN Reason: PAIN LEVEL 1-5 Last Admin: 11/20/18 21:26 Dose: 650 mg Albuterol/Ipratropium (Duoneb -) 1 amp NEB RQID [facility] Last Admin: 11/21/18 08:00 Dose: 1 amp Aspirin (Ecotrin -) 81 mg PO DAILY [facility] Last Admin: 11/21/18 09:16 Dose: 81 mg Atorvastatin Calcium (Lipitor -) 40 mg PO HS [facility] Last Admin: 11/20/18 21:26 Dose: 40 mg Furosemide (Lasix -) 40 mg PO BID@0600,1400 [facility] Last Admin: 11/21/18 06:18 Dose: 40 mg Guaifenesin (Diabetic Tussin Dm -) 10 ml PO Q6H PRN PRN Reason: COUGH Heparin Sodium (Porcine) (Heparin -) 5,000 unit SQ BID [facility] Last Admin: 11/21/18 09:17 Dose: 5,000 unit Hydrochlorothiazide (Hctz -) 25 mg PO DAILY [facility] Last Admin: 11/21/18 09:15 Dose: 25 mg Insulin Aspart (Novolog Vial Sliding Scale -) 1 vial SQ ACHS [facility]; Protocol Last Admin: 11/21/18 06:21 Dose: Not Given Insulin Detemir (Levemir Vial) 25 units SQ AM [facility] Last Admin: 11/21/18 07:58 Dose: Not Given Levothyroxine Sodium (Synthroid -) 150 mcg PO DAILY@0700 [facility] Last Admin: 11/21/18 06:18 Dose: 150 mcg Lidocaine (Lidoderm Patch -) 1 patch TP DAILY [facility] Last Admin: 11/21/18 09:20 Dose: 1 patch Losartan Potassium (Cozaar -) 50 mg PO DAILY [facility] Last Admin: 11/21/18 09:16 Dose: 50 mg Miscellaneous (Lidoderm Patch Removal) 1 each MC DAILY@2200 [facility] Last Admin: 11/20/18 22:20 Dose: 1 each Polyethylene Glycol (Miralax (For Daily Use) -) 17 gm PO DAILY [facility] Last Admin: 11/20/18 11:27 Dose: 17 gm - Objective Vital Signs: Vital Signs Temperature 98.5 F 11/21/18 05:52 Pulse Rate 80 11/21/18 05:52 Respiratory Rate 20 11/21/18 05:52 Blood Pressure 121/72 11/21/18 05:52 O2 Sat by Pulse Oximetry (%) 98 11/20/18 23:15 Constitutional: Yes: No Distress, Calm Eyes: Yes: Conjunctiva Clear HENT: Yes: Atraumatic Cardiovascular: Yes: Regular Rate and Rhythm Respiratory: Yes: Regular, Diminished, On Nasal O2 Gastrointestinal: Yes: Normal Bowel Sounds, Soft Musculoskeletal: Yes: WNL Extremities: Yes: WNL Edema: No Neurological: Yes: Alert, Oriented Psychiatric: Yes: Alert, Oriented Labs: CBC, BMP 11/21/18 08:35 11/21/18 08:35 INR, PTT INR 1.03 (0.83-1.09) 11/15/18 10:05 Problem List - Problems (1) Acute respiratory failure with hypoxia and hypercapnia Assessment/Plan: -Pulm on board -Bipap HS -O2 via NC -keep SpO2 >90% -Bronchodilators Code(s): J96.01 - ACUTE RESPIRATORY FAILURE WITH HYPOXIA; J96.02 - ACUTE RESPIRATORY FAILURE WITH HYPERCAPNIA (2) CHF (congestive heart failure) Assessment/Plan: -Pulm on board -Bipap HS -O2 via NC -keep SpO2 >90% -Bronchodilators -Cardiology on board -Lasix BID -daily weights -strict I&Os -CXR shows large heart, congestive changes Code(s): I50.9 - HEART FAILURE, UNSPECIFIED (3) COPD (chronic obstructive pulmonary disease) Assessment/Plan: -Pulm on board -Bipap HS -O2 via NC -keep SpO2 >90% -Bronchodilators -CXR shows large heart, congestive changes Code(s): J44.9 - CHRONIC OBSTRUCTIVE PULMONARY DISEASE, UNSPECIFIED (4) HLD (hyperlipidemia) Assessment/Plan: -Atorvastatin Code(s): E78.5 - HYPERLIPIDEMIA, UNSPECIFIED (5) HTN (hypertension) Assessment/Plan: -HCTZ, Losartan -low Na diet Code(s): I10 - ESSENTIAL (PRIMARY) HYPERTENSION (6) CKD (chronic kidney disease) Assessment/Plan: -Renal on board -BUN/Cr 63.5/2.9 -monitor renal function daily -Renal US shows increased dilatation of left renal collecting system, developmen of minimal dilatation of the right renal collecting system , kidneys otherwise appear unremarkable Code(s): N18.9 - CHRONIC KIDNEY DISEASE, UNSPECIFIED (7) Diabetes mellitus Assessment/Plan: -BGM ACHS -ISS -Levemir -HgA1c 7.4% -diabetic diet Code(s): E11.9 - TYPE 2 DIABETES MELLITUS WITHOUT COMPLICATIONS Qualifiers: Diabetes mellitus type: type 2 Assessment/Plan see problem list dvt ppx
--- NOTE | 2018-11-21 12:50 | PN ---
Progress Note, Physician History of Present Illness: Pt seen and examined at bedside. She feels that her breathing is improved. - Current Medication List Current Medications: Active Medications Acetaminophen (Tylenol -) 650 mg PO Q6H PRN PRN Reason: PAIN LEVEL 1-5 Last Admin: 11/20/18 21:26 Dose: 650 mg Albuterol/Ipratropium (Duoneb -) 1 amp NEB RQID [facility] Last Admin: 11/21/18 12:28 Dose: Not Given Aspirin (Ecotrin -) 81 mg PO DAILY [facility] Last Admin: 11/21/18 09:16 Dose: 81 mg Atorvastatin Calcium (Lipitor -) 40 mg PO HS [facility] Last Admin: 11/20/18 21:26 Dose: 40 mg Furosemide (Lasix -) 40 mg PO BID@0600,1400 [facility] Last Admin: 11/21/18 06:18 Dose: 40 mg Guaifenesin (Diabetic Tussin Dm -) 10 ml PO Q6H PRN PRN Reason: COUGH Heparin Sodium (Porcine) (Heparin -) 5,000 unit SQ BID [facility] Last Admin: 11/21/18 09:17 Dose: 5,000 unit Hydrochlorothiazide (Hctz -) 25 mg PO DAILY [facility] Last Admin: 11/21/18 09:15 Dose: 25 mg Insulin Aspart (Novolog Vial Sliding Scale -) 1 vial SQ ACHS [facility]; Protocol Last Admin: 11/21/18 06:21 Dose: Not Given Insulin Detemir (Levemir Vial) 25 units SQ AM [facility] Last Admin: 11/21/18 07:58 Dose: Not Given Levothyroxine Sodium (Synthroid -) 150 mcg PO DAILY@0700 [facility] Last Admin: 11/21/18 06:18 Dose: 150 mcg Lidocaine (Lidoderm Patch -) 1 patch TP DAILY [facility] Last Admin: 11/21/18 09:20 Dose: 1 patch Losartan Potassium (Cozaar -) 50 mg PO DAILY [facility] Last Admin: 11/21/18 09:16 Dose: 50 mg Miscellaneous (Lidoderm Patch Removal) 1 each MC DAILY@2200 [facility] Last Admin: 11/20/18 22:20 Dose: 1 each Polyethylene Glycol (Miralax (For Daily Use) -) 17 gm PO DAILY [facility] Last Admin: 11/20/18 11:27 Dose: 17 gm - Objective Vital Signs: Vital Signs Temperature 98.5 F 11/21/18 05:52 Pulse Rate 80 11/21/18 05:52 Respiratory Rate 20 11/21/18 05:52 Blood Pressure 121/72 11/21/18 05:52 O2 Sat by Pulse Oximetry (%) 98 11/20/18 23:15 Constitutional: Yes: Calm Eyes: Yes: Conjunctiva Clear HENT: Yes: Atraumatic Neck: Yes: Supple Cardiovascular: Yes: S1, S2 Respiratory: Yes: CTA Bilaterally Gastrointestinal: Yes: Normal Bowel Sounds, Soft Genitourinary: Yes: WNL Musculoskeletal: Yes: WNL Edema: Yes Edema: LLE: Trace, RLE: Trace Neurological: Yes: Oriented Psychiatric: Yes: Oriented Labs: CBC, BMP 11/21/18 08:35 11/21/18 08:35 INR, PTT INR 1.03 (0.83-1.09) 11/15/18 10:05 Problem List - Problems (1) CHF (congestive heart failure) Code(s): I50.9 - HEART FAILURE, UNSPECIFIED (2) HLD (hyperlipidemia) Code(s): E78.5 - HYPERLIPIDEMIA, UNSPECIFIED (3) HTN (hypertension) Code(s): I10 - ESSENTIAL (PRIMARY) HYPERTENSION (4) CKD (chronic kidney disease) Code(s): N18.9 - CHRONIC KIDNEY DISEASE, UNSPECIFIED Assessment/Plan Current Medications Generic Name Dose Route Start Last Admin Trade Name Freq PRN Reason Stop Dose Admin Acetaminophen 650 mg 11/16/18 21:22 11/20/18 21:26 Tylenol - PO 650 mg Q6H PRN Administration PAIN LEVEL 1-5 Albuterol/Ipratropium 1 amp 11/15/18 16:00 11/21/18 12:28 Duoneb - NEB Not Given RQID [facility] Aspirin 81 mg 11/16/18 10:00 11/21/18 09:16 Ecotrin - PO 81 mg DAILY [facility] Administration Atorvastatin Calcium 40 mg 11/15/18 22:00 11/20/18 21:26 Lipitor - PO 40 mg HS [facility] Administration Furosemide 40 mg 11/20/18 14:00 11/21/18 06:18 Lasix - PO 40 mg BID@0600,1400 [facility] Administration Guaifenesin 10 ml 11/20/18 10:55 Diabetic Tussin Dm - PO Q6H PRN COUGH Heparin Sodium (Porcine) 5,000 unit 11/15/18 22:00 11/21/18 09:17 Heparin - SQ 5,000 unit BID [facility] Administration Hydrochlorothiazide 25 mg 11/18/18 12:39 11/21/18 09:15 Hctz - PO 25 mg DAILY [facility] Administration Insulin Aspart 1 vial 11/16/18 22:00 11/21/18 06:21 Novolog Vial Sliding Scale - SQ Not Given ACHS [facility] Protocol Insulin Detemir 25 units 11/17/18 07:00 11/21/18 07:58 Levemir Vial SQ Not Given AM [facility] Levothyroxine Sodium 150 mcg 11/16/18 07:00 11/21/18 06:18 Synthroid - PO 150 mcg DAILY@0700 [facility] Administration Lidocaine 1 patch 11/20/18 12:00 11/21/18 09:20 Lidoderm Patch - TP 1 patch DAILY [facility] Administration Losartan Potassium 50 mg 11/16/18 10:00 11/21/18 09:16 Cozaar - PO 50 mg DAILY [facility] Administration Miscellaneous 1 each 11/20/18 22:00 11/20/18 22:20 Lidoderm Patch Removal MC 1 each DAILY@2200 [facility] Administration Polyethylene Glycol 17 gm 11/20/18 11:00 11/20/18 11:27 Miralax (For Daily Use) - PO 17 gm DAILY [facility] Administration Impression 1. CKD 2. REBEKAH 3. morbid obesity 4. hx of bariatric surgery 5. DM 6. HTN 7. hypothyroidism 8. ovarian cyst Plan - low potassium diet - po lasix - cont losartan - outpt follow up - avoid nsaids or nephrotoxins
[2018-11-21] MEDS ORDERED: INSULIN (NOVOLOG) ASPART 100 UNITS/ML 10ML VIAL ONE (22:00)
[2018-11-21] MEDS: ACETAMINOPHEN 325 MG TABLET (FP) PO PRN (22:08)
[2018-11-21] MEDS: ATORVASTATIN CA 40 MG TABLET (FP) PO SCH (22:08)
[2018-11-21] MEDS: LIDOCAINE PATCH REMOVAL MC SCH (22:11)
[2018-11-22] MEDS: INSULIN SLIDING SCALE (NOVOLOG) 1 VIAL SQ SCH ×3 (06:26→17:08)
[2018-11-22] MEDS: INSULIN (LEVEMIR) 100 UNITS/ML UNITS SQ SCH (06:26)
[2018-11-22] MEDS: LEVOTHYROXINE NA 150 MCG TABLET PO SCH (06:29)
[2018-11-22] MEDS: FUROSEMIDE 40 MG TABLET (FP) PO SCH ×2 (06:29→13:43)
[2018-11-22] MEDS: ALBUTEROL SO4 2.5/IPRATROPIUM 0.5 INH SOL 3 ML VIAL.NEB. NEB SCH ×3 (08:17→16:42)
[2018-11-22 08:27] LABS: HEMATOCRIT 31.9 % (32.4-45.2); HEMOGLOBIN 10.4 GM/dL (10.7-15.3); MCH 28.8 pg (25.7-33.7); MCHC 32.6 g/dl (32.0-36.0); MEAN CELL VOLUME 88.4 fl (80-96); MEAN PLT VOLUME 10.1 fl (7.5-11.1); PLATELET COUNT 255 K/MM3 (134-434); RBC 3.61 M/mm3 (3.60-5.2); RDW 14.7 % (11.6-15.6); WHITE BLOOD COUNT 8.6 K/mm3 (4.0-10.0)
[2018-11-22] MEDS: HYDROCHLOROTHIAZIDE 12.5 MG CAPSULE (FP) PO SCH (09:15)
[2018-11-22] MEDS: ASPIRIN COATED 81 MG TABLET.EC PO SCH (09:20)
[2018-11-22] MEDS: HEPARIN NA (PORCINE) 5,000 UNITS/ML 1ML VIAL SQ SCH (09:26)
[2018-11-22] MEDS: LIDOCAINE 5% TOPICAL PATCH TP SCH (09:26)
[2018-11-22 09:33] LABS: ALBUMIN 2.9 g/dl (3.4-5.0); BILIRUBIN,TOTAL 0.5 mg/dL (0.2-1); BLOOD UREA NITROGEN 66.3 mg/dL (7-18); CALCIUM 8.7 mg/dL (8.5-10.1); CREATININE 2.8 mg/dL (0.55-1.3); TOT PROT 7.2 g/dl (6.4-8.2)
[2018-11-22] MEDS: LOSARTAN POTASSIUM 50 MG TABLET (FP) PO SCH (10:19)
[2018-11-22] MEDS: POLYETHYLENE GLYCOL 3350 119 GM BTL PO SCH (10:55)
--- NOTE | 2018-11-22 12:44 | PN ---
Progress Note, Physician History of Present Illness: PULMONARY COMFORTABLE ON NASAL CANNULA,-SOB. O2 SAT 98% ON RA - Current Medication List Current Medications: Active Medications Acetaminophen (Tylenol -) 650 mg PO Q6H PRN PRN Reason: PAIN LEVEL 1-5 Last Admin: 11/21/18 22:08 Dose: 650 mg Albuterol/Ipratropium (Duoneb -) 1 amp NEB RQID [facility] Last Admin: 11/22/18 12:30 Dose: 1 amp Aspirin (Ecotrin -) 81 mg PO DAILY [facility] Last Admin: 11/22/18 09:20 Dose: 81 mg Atorvastatin Calcium (Lipitor -) 40 mg PO HS [facility] Last Admin: 11/21/18 22:08 Dose: 40 mg Furosemide (Lasix -) 40 mg PO BID@0600,1400 [facility] Last Admin: 11/22/18 06:29 Dose: 40 mg Guaifenesin (Diabetic Tussin Dm -) 10 ml PO Q6H PRN PRN Reason: COUGH Heparin Sodium (Porcine) (Heparin -) 5,000 unit SQ BID [facility] Last Admin: 11/22/18 09:26 Dose: 5,000 unit Hydrochlorothiazide (Hctz -) 25 mg PO DAILY [facility] Last Admin: 11/22/18 09:15 Dose: 25 mg Insulin Aspart (Novolog Vial Sliding Scale -) 1 vial SQ [facility]; Protocol Last Admin: 11/22/18 12:41 Dose: Not Given Insulin Detemir (Levemir Vial) 25 units SQ AM [facility] Last Admin: 11/22/18 06:26 Dose: Not Given Levothyroxine Sodium (Synthroid -) 150 mcg PO DAILY@0700 [facility] Last Admin: 11/22/18 06:29 Dose: 150 mcg Lidocaine (Lidoderm Patch -) 1 patch TP DAILY [facility] Last Admin: 11/22/18 09:26 Dose: 1 patch Losartan Potassium (Cozaar -) 50 mg PO DAILY [facility] Last Admin: 11/22/18 10:19 Dose: 50 mg Miscellaneous (Lidoderm Patch Removal) 1 each MC DAILY@2200 [facility] Last Admin: 11/21/18 22:11 Dose: 1 each Polyethylene Glycol (Miralax (For Daily Use) -) 17 gm PO DAILY [facility] Last Admin: 11/21/18 10:45 Dose: 17 gm - Objective Vital Signs: Vital Signs Temperature 97.9 F 11/22/18 06:00 Pulse Rate 82 11/22/18 06:00 Respiratory Rate 20 11/22/18 06:00 Blood Pressure 136/80 11/22/18 06:00 O2 Sat by Pulse Oximetry (%) 99 11/22/18 08:16 Constitutional: Yes: Calm, Obese Eyes: Yes: WNL HENT: Yes: WNL Neck: Yes: WNL Cardiovascular: Yes: Regular Rate and Rhythm, S1, S2 Respiratory: Yes: CTA Bilaterally Gastrointestinal: Yes: Normal Bowel Sounds, Soft Extremities: Yes: WNL Edema: Yes Labs: CBC, BMP 11/22/18 06:45 11/22/18 06:45 INR, PTT INR 1.03 (0.83-1.09) 11/15/18 10:05 Problem List - Problems (1) Acute respiratory failure with hypoxia and hypercapnia Code(s): J96.01 - ACUTE RESPIRATORY FAILURE WITH HYPOXIA; J96.02 - ACUTE RESPIRATORY FAILURE WITH HYPERCAPNIA Assessment/Plan Problem List - Problems (1) CHF (congestive heart failure) Code(s): I50.9 - HEART FAILURE, UNSPECIFIED (2) COPD (chronic obstructive pulmonary disease) Code(s): J44.9 - CHRONIC OBSTRUCTIVE PULMONARY DISEASE, UNSPECIFIED (3) SOB (shortness of breath) Code(s): R06.02 - SHORTNESS OF BREATH (4) REBEKAH (acute kidney injury) Code(s): N17.9 - ACUTE KIDNEY FAILURE, UNSPECIFIED (5) CKD (chronic kidney disease) Code(s): N18.9 - CHRONIC KIDNEY DISEASE, UNSPECIFIED (6) Diabetes mellitus Code(s): E11.9 - TYPE 2 DIABETES MELLITUS WITHOUT COMPLICATIONS Qualifiers: Diabetes mellitus type: type 2 (7) Morbid (severe) obesity due to excess calories Code(s): E66.01 - MORBID (SEVERE) OBESITY DUE TO EXCESS CALORIES (8) Sleep apnea with use of continuous positive airway pressure (CPAP) Code(s): G47.30 - SLEEP APNEA, UNSPECIFIED 9 ACUTE HYPOXEMIC/HYPERCAPNEIC RESPIRATORY FAILURE 10 ? OHS Assessment/Plan BIPAP AT NIGHT O2 as needed DUONEBS DVT PROPHYLAXSIS GLYCEMIC CONTROL MONITOR LYTES,RENAL FUNCTION DR OSUNA
--- NOTE | 2018-11-22 15:28 | DS ---
Physical Examination Vital Signs: Vital Signs Temperature 98.4 F 11/22/18 10:00 Pulse Rate 91 H 11/22/18 10:00 Respiratory Rate 20 11/22/18 10:00 Blood Pressure 142/71 11/22/18 10:00 O2 Sat by Pulse Oximetry (%) 98 11/22/18 09:00 Findings/Remarks: Laboratory Last Values WBC 8.6 K/mm3 (4.0-10.0) 11/22/18 06:45 RBC 3.61 M/mm3 (3.60-5.2) 11/22/18 06:45 Hgb 10.4 GM/dL (10.7-15.3) L 11/22/18 06:45 Hct 31.9 % (32.4-45.2) L 11/22/18 06:45 MCV 88.4 fl (80-96) 11/22/18 06:45 MCH 28.8 pg (25.7-33.7) 11/22/18 06:45 MCHC 32.6 g/dl (32.0-36.0) 11/22/18 06:45 RDW 14.7 % (11.6-15.6) 11/22/18 06:45 Plt Count 255 K/MM3 (134-434) 11/22/18 06:45 MPV 10.1 fl (7.5-11.1) 11/22/18 06:45 Absolute Neuts (auto) 5.5 K/mm3 (1.5-8.0) 11/16/18 07:45 Neutrophils % 64.7 % (42.8-82.8) 11/16/18 07:45 Lymphocytes % 24.7 % (8-40) 11/16/18 07:45 Monocytes % 10.4 % (3.8-10.2) H 11/16/18 07:45 Eosinophils % 0.0 % (0-4.5) D 11/16/18 07:45 Basophils % 0.2 % (0-2.0) 11/16/18 07:45 Nucleated RBC % 0 % (0-0) 11/16/18 07:45 PT with INR 12.20 SEC (9.7-13.0) 11/15/18 10:05 INR 1.03 (0.83-1.09) 11/15/18 10:05 PTT (Actin FS) 33.2 SECONDS (25.2-36.5) 11/15/18 10:05 Anticoagulation Therapy No Result Required. 11/18/18 11:44 Puncture Site Left radial 11/18/18 11:44 ABG pH 7.40 (7.35-7.45) 11/18/18 11:44 ABG pCO2 at Pt Temp 41.7 mmHg (35-45) 11/18/18 11:44 ABG pO2 at Pt Temp 123 mmHg (80-100) H 11/18/18 11:44 ABG HCO3 25.9 mmol/L (22-27) 11/18/18 11:44 ABG O2 Sat (Measured) 98.6 % (95-98) H 11/18/18 11:44 ABG O2 Content 15.0 % vol 11/18/18 11:44 ABG Base Excess 1.6 meq/l (-2-2) 11/18/18 11:44 Neto Test Positive 11/18/18 11:44 VBG pH 7.22 (7.31-7.41) L 11/15/18 10:05 POC VBG pCO2 60.4 mmHg (38-52) H 11/15/18 10:05 POC VBG pO2 < 49 mmHg (28-48) H 11/15/18 10:05 VBG HCO3 23.8 mmol/L (23-29) 11/15/18 10:05 VBG O2 Sat (Sonia) 50.6 % (70-80) L 11/15/18 10:05 VBG Base Excess -4.7 meq/l (-2-2) L 11/15/18 10:05 O2 Delivery Device No Result Required. 11/18/18 11:44 Oxygen Flow Rate No 11/18/18 11:44 Vent Mode No Result Required. 11/18/18 11:44 Vent Rate No Result Required. 11/18/18 11:44 Mechanical Rate No Result Required. 11/18/18 11:44 Pressure Support Vent No Result Required. 11/18/18 11:44 Sodium 136 mmol/L (136-145) 11/22/18 06:45 Potassium 5.0 mmol/L (3.5-5.1) 11/22/18 06:45 Chloride 100 mmol/L (98-107) 11/22/18 06:45 Carbon Dioxide 28 mmol/L (21-32) 11/22/18 06:45 Anion Gap 9 MMOL/L (8-16) 11/22/18 06:45 BUN 66.3 mg/dL (7-18) H 11/22/18 06:45 Creatinine 2.8 mg/dL (0.55-1.3) H 11/22/18 06:45 Est GFR (CKD-EPI)AfAm 22.38 11/22/18 06:45 Est GFR (CKD-EPI)NonAf 19.31 11/22/18 06:45 POC Glucometer 132 UNITS (80-120) 11/22/18 11:24 Random Glucose 84 mg/dL (74-106) 11/22/18 06:45 Hemoglobin A1c % 7.4 % (4.2-6.3) H 11/16/18 07:45 Calcium 8.7 mg/dL (8.5-10.1) 11/22/18 06:45 Phosphorus 3.7 mg/dL (2.5-4.9) 11/16/18 07:45 Magnesium 1.9 mg/dL (1.8-2.4) 11/16/18 07:45 Total Bilirubin 0.5 mg/dL (0.2-1) 11/22/18 06:45 AST 17 U/L (15-37) 11/22/18 06:45 ALT 19 U/L (13-61) 11/22/18 06:45 Alkaline Phosphatase 87 U/L (45-117) 11/22/18 06:45 Creatine Kinase 134 U/L (26-192) 11/16/18 07:45 Creatine Kinase Index 1.1 % (0.0-5.0) 11/15/18 10:05 CK-MB (CK-2) 2.45 ng/mL (0.5-3.6) 11/15/18 10:05 Troponin I < 0.02 ng/ml (0.00-0.05) 11/16/18 07:45 B-Natriuretic Peptide 2773.6 pg/ml (5-125) H 11/16/18 07:45 Total Protein 7.2 g/dl (6.4-8.2) 11/22/18 06:45 Albumin 2.9 g/dl (3.4-5.0) L 11/22/18 06:45 Triglycerides 172 mg/dL (0-150) H 11/16/18 07:45 Cholesterol 288 mg/dL (50-200) H 11/16/18 07:45 Total LDL Cholesterol 209 mg/dL (5-100) H 11/16/18 07:45 HDL Cholesterol 41 mg/dL (40-60) 11/16/18 07:45 TSH 0.34 uIU/ml (0.358-3.74) L 11/16/18 07:45 Urine Color Yellow 11/15/18 10:50 Urine Appearance Clear 11/15/18 10:50 Urine pH 6.0 (5.0-8.0) 11/15/18 10:50 Ur Specific Flynn 1.013 (1.010-1.035) 11/15/18 10:50 Urine Protein 3+ (NEGATIVE) H 11/15/18 10:50 Urine Glucose (UA) 1+ (NEGATIVE) H 11/15/18 10:50 Urine Ketones Negative (NEGATIVE) 11/15/18 10:50 Urine Blood Trace (NEGATIVE) 11/15/18 10:50 Urine Nitrite Negative (NEGATIVE) 11/15/18 10:50 Urine Bilirubin Negative (NEGATIVE) 11/15/18 10:50 Urine Urobilinogen 0.2 mg/dL (0.2-1.0) 11/15/18 10:50 Ur Leukocyte Esterase Negative (NEGATIVE) 11/15/18 10:50 Urine WBC (Auto) 1 /hpf (0-5) 11/15/18 10:50 Urine RBC (Auto) 2 /hpf (0-4) 11/15/18 10:50 Urine Casts (Auto) 2 /lpf (0-8) 11/15/18 10:50 U Epithel Cells (Auto) 1.2 /HPF (0-5/HPF) 11/15/18 10:50 Urine Bacteria (Auto) 59.0 /hpf (NEGATIVE) 11/15/18 10:50 Urine HCG, Qual Negative 11/15/18 10:50 Active Medications Generic Name Dose Route Start Last Admin Trade Name Freq PRN Reason Stop Dose Admin Acetaminophen 650 mg 11/16/18 21:22 11/21/18 22:08 Tylenol - PO 650 mg Q6H PRN Administration PAIN LEVEL 1-5 Albuterol/Ipratropium 1 amp 11/15/18 16:00 11/22/18 12:30 Duoneb - NEB 1 amp RQID PAULA Administration Aspirin 81 mg 11/16/18 10:00 11/22/18 09:20 Ecotrin - PO 81 mg DAILY PAULA Administration Atorvastatin Calcium 40 mg 11/15/18 22:00 11/21/18 22:08 Lipitor - PO 40 mg HS PAULA Administration Furosemide 40 mg 11/20/18 14:00 11/22/18 13:43 Lasix - PO 40 mg BID@0600,1400 PAULA Administration Guaifenesin 10 ml 11/20/18 10:55 Diabetic Tussin Dm - PO Q6H PRN COUGH Heparin Sodium (Porcine) 5,000 unit 11/15/18 22:00 11/22/18 09:26 Heparin - SQ 5,000 unit BID PAULA Administration Hydrochlorothiazide 25 mg 11/18/18 12:39 11/22/18 09:15 Hctz - PO 25 mg DAILY PAULA Administration Insulin Aspart 1 vial 11/16/18 22:00 11/22/18 12:41 Novolog Vial Sliding Scale - SQ Not Given ACHS [facility] Protocol Insulin Detemir 25 units 11/17/18 07:00 11/22/18 06:26 Levemir Vial SQ Not Given AM [facility] Levothyroxine Sodium 150 mcg 11/16/18 07:00 11/22/18 06:29 Synthroid - PO 150 mcg DAILY@0700 PAULA Administration Lidocaine 1 patch 11/20/18 12:00 11/22/18 09:26 Lidoderm Patch - TP 1 patch DAILY PAULA Administration Losartan Potassium 50 mg 11/16/18 10:00 11/22/18 10:19 Cozaar - PO 50 mg DAILY PAULA Administration Miscellaneous 1 each 11/20/18 22:00 11/21/18 22:11 Lidoderm Patch Removal MC 1 each DAILY@2200 PAULA Administration Polyethylene Glycol 17 gm 11/20/18 11:00 11/22/18 10:55 Miralax (For Daily Use) - PO 17 gm DAILY PAULA Administration Constitutional: Yes: No Distress, Calm, Obese Eyes: Yes: Conjunctiva Clear HENT: Yes: Atraumatic Cardiovascular: Yes: Regular Rate and Rhythm Respiratory: Yes: Regular, Diminished Gastrointestinal: Yes: Normal Bowel Sounds, Soft, Abdomen, Obese Musculoskeletal: Yes: WNL Extremities: Yes: WNL Edema: No Neurological: Yes: Alert, Oriented Psychiatric: Yes: Alert, Oriented Labs: CBC, BMP 11/22/18 06:45 11/22/18 06:45 Discharge Summary Problems reviewed: Yes Reason For Visit: CHF Current Active Problems Acute respiratory failure with hypoxia and hypercapnia (Acute) CHF (congestive heart failure) (Acute) COPD (chronic obstructive pulmonary disease) (Acute) HLD (hyperlipidemia) (Acute) HTN (hypertension) (Acute) Hypothyroid (Acute) SOB (shortness of breath) (Acute) Type 2 diabetes mellitus with other diabetic kidney complication (Acute) Type 2 diabetes mellitus with other diabetic kidney complication (Acute) Hospital Course: The patient is a 48 year old female, with a significant PMH of HTN, HLD, COPD ( no history of intubations, has been admitted to ICU in the past), IDDM, CKD, REBEKAH , morbid obesity, hyperkalemia, ovarian cyst, hypothyroidism, sleep apnea ( wears CPAP at night at home), and chronic low back pain, who presents to the ED [facility] for evaluation of SOB for 2 days. Patient reports feeling increasing SOB over the past two days, and endorses an associated cough and orthopnea (states she cannot lie flat as shell begin coughing). She notes having bilateral lower extremity edema, but notes she has had this for a while and is currently on Lasix 40mg daily. Patient denies any chest pain or fever, but endorses chills. Per EMS, pt was not moving air well upon their initial eval. Duo nebs, Decadron , and Nitro were administered, and pt was placed on CPAP, with some relief of symptoms. Patient reports feeling slightly less SOB upon arrival to the ED. in ER she got duonebs and 80mg of iv lasix and placed on bipap elevated BNP on labs 3673.7 Condition: Stable - Instructions Diet, Activity, Other Instructions: Follow up with PMD in 1 week follow up with Pulmonary Dr Delgado for COPD and Sleep Study FOllow up with nephrology Dr Domínguez continue with medication regimen as prescribed return to ER if develop severe pain, chest pain, respiratory distress Referrals: Anirudh Delgado MD [Staff Physician] - Samuel Levine [Primary Care Provider] - Ary Domínguez MD [Staff Physician] - Disposition: HOME - Home Medications Comprehensive Discharge Medication List: Ambulatory Orders Levothyroxine [Synthroid -] 150 mcg PO DAILY 04/20/17 Aspirin [ASA -] 81 mg PO DAILY 10/29/17 Insulin Aspart [Novolog] 30 unit SQ DAILY 10/29/17 Insulin Degludec [Tresiba Flextouch U-100] 50 unit SQ DAILY 10/29/17 Famotidine [Pepcid] 20 mg PO BID #60 tablet 10/30/17 Oxycodone HCl/Acetaminophen [Percocet 5-325 mg Tablet] 1 - 2 tab PO Q6H #28 tab MDD 4 10/30/17 Amlodipine Besylate [Norvasc -] 5 mg PO DAILY 10/31/17 Losartan 50Mg/Hctz 12.5MG [Hyzaar -] 1 tab PO DAILY 10/31/17 Ramipril 5 mg PO DAILY 10/31/17 Atorvastatin Ca [Lipitor] 40 mg PO HS #30 tablet 11/22/18 Furosemide [Lasix] 40 mg PO BID #60 tablet 11/22/18 Insulin (Levemir) [Levemir Vial] 25 units SQ AM #1 vial 11/22/18 Lidocaine 5% Patch [Lidoderm -] 1 patch TP DAILY #30 patch 11/22/18 Polyethylene Glycol 3350 [Miralax 119 gm Btl -] 17 gm PO DAILY #1 bottle
[2018-11-22 15:40] VITALS: BP 150/88; PULSE 99; TEMP 98.3
[2018-11-22] MEDS ORDERED: LOSARTAN POTASSIUM 25 MG TABLET PO SCH (15:48)
--- NOTE | 2018-11-22 15:48 | PN ---
Progress Note, Physician History of Present Illness: Pt seen and examined at bedside. She is awake and alert. She denies shortness of breath. - Current Medication List Current Medications: Active Medications Acetaminophen (Tylenol -) 650 mg PO Q6H PRN PRN Reason: PAIN LEVEL 1-5 Last Admin: 11/21/18 22:08 Dose: 650 mg Albuterol/Ipratropium (Duoneb -) 1 amp NEB RQID [facility] Last Admin: 11/22/18 12:30 Dose: 1 amp Aspirin (Ecotrin -) 81 mg PO DAILY [facility] Last Admin: 11/22/18 09:20 Dose: 81 mg Atorvastatin Calcium (Lipitor -) 40 mg PO HS [facility] Last Admin: 11/21/18 22:08 Dose: 40 mg Furosemide (Lasix -) 40 mg PO BID@0600,1400 [facility] Last Admin: 11/22/18 13:43 Dose: 40 mg Guaifenesin (Diabetic Tussin Dm -) 10 ml PO Q6H PRN PRN Reason: COUGH Heparin Sodium (Porcine) (Heparin -) 5,000 unit SQ BID [facility] Last Admin: 11/22/18 09:26 Dose: 5,000 unit Hydrochlorothiazide (Hctz -) 25 mg PO DAILY [facility] Last Admin: 11/22/18 09:15 Dose: 25 mg Insulin Aspart (Novolog Vial Sliding Scale -) 1 vial SQ ACHS [facility]; Protocol Last Admin: 11/22/18 12:41 Dose: Not Given Insulin Detemir (Levemir Vial) 25 units SQ AM [facility] Last Admin: 11/22/18 06:26 Dose: Not Given Levothyroxine Sodium (Synthroid -) 150 mcg PO DAILY@0700 [facility] Last Admin: 11/22/18 06:29 Dose: 150 mcg Lidocaine (Lidoderm Patch -) 1 patch TP DAILY [facility] Last Admin: 11/22/18 09:26 Dose: 1 patch Losartan Potassium (Cozaar -) 50 mg PO DAILY [facility] Last Admin: 11/22/18 10:19 Dose: 50 mg Miscellaneous (Lidoderm Patch Removal) 1 each MC DAILY@2200 [facility] Last Admin: 11/21/18 22:11 Dose: 1 each Polyethylene Glycol (Miralax (For Daily Use) -) 17 gm PO DAILY [facility] Last Admin: 11/22/18 10:55 Dose: 17 gm - Objective Vital Signs: Vital Signs Temperature 98.3 F 11/22/18 14:00 Pulse Rate 99 H 11/22/18 14:00 Respiratory Rate 20 11/22/18 14:00 Blood Pressure 150/88 11/22/18 14:00 O2 Sat by Pulse Oximetry (%) 98 11/22/18 09:00 Constitutional: Yes: Calm Eyes: Yes: Conjunctiva Clear HENT: Yes: Atraumatic Neck: Yes: Supple Cardiovascular: Yes: S1, S2 Respiratory: Yes: CTA Bilaterally Gastrointestinal: Yes: Soft, Abdomen, Obese Genitourinary: Yes: WNL Musculoskeletal: Yes: WNL Edema: No Neurological: Yes: Oriented Psychiatric: Yes: Oriented Labs: CBC, BMP 11/22/18 06:45 11/22/18 06:45 INR, PTT INR 1.03 (0.83-1.09) 11/15/18 10:05 Problem List - Problems (1) CHF (congestive heart failure) Code(s): I50.9 - HEART FAILURE, UNSPECIFIED (2) HLD (hyperlipidemia) Code(s): E78.5 - HYPERLIPIDEMIA, UNSPECIFIED (3) HTN (hypertension) Code(s): I10 - ESSENTIAL (PRIMARY) HYPERTENSION (4) CKD (chronic kidney disease) Code(s): N18.9 - CHRONIC KIDNEY DISEASE, UNSPECIFIED Assessment/Plan Current Medications Generic Name Dose Route Start Last Admin Trade Name Freq PRN Reason Stop Dose Admin Acetaminophen 650 mg 11/16/18 21:22 11/21/18 22:08 Tylenol - PO 650 mg Q6H PRN Administration PAIN LEVEL 1-5 Albuterol/Ipratropium 1 amp 11/15/18 16:00 11/22/18 12:30 Duoneb - NEB 1 amp RQID PAULA Administration Aspirin 81 mg 11/16/18 10:00 11/22/18 09:20 Ecotrin - PO 81 mg DAILY PAULA Administration Atorvastatin Calcium 40 mg 11/15/18 22:00 11/21/18 22:08 Lipitor - PO 40 mg HS PAULA Administration Furosemide 40 mg 11/20/18 14:00 11/22/18 13:43 Lasix - PO 40 mg BID@0600,1400 PAULA Administration Guaifenesin 10 ml 11/20/18 10:55 Diabetic Tussin Dm - PO Q6H PRN COUGH Heparin Sodium (Porcine) 5,000 unit 10/11/19 22:00 11/22/18 09:26 Heparin - SQ 5,000 unit BID PAULA Administration Hydrochlorothiazide 25 mg 11/18/18 12:39 11/22/18 09:15 Hctz - PO 25 mg DAILY PAULA Administration Insulin Aspart 1 vial 11/16/18 22:00 11/22/18 12:41 Novolog Vial Sliding Scale - SQ Not Given ACHS [facility] Protocol Insulin Detemir 25 units 11/17/18 07:00 11/22/18 06:26 Levemir Vial SQ Not Given AM [facility] Levothyroxine Sodium 150 mcg 11/16/18 07:00 11/22/18 06:29 Synthroid - PO 150 mcg DAILY@0700 PAULA Administration Lidocaine 1 patch 11/20/18 12:00 11/22/18 09:26 Lidoderm Patch - TP 1 patch DAILY PAULA Administration Losartan Potassium 50 mg 11/16/18 10:00 11/22/18 10:19 Cozaar - PO 50 mg DAILY PAULA Administration Miscellaneous 1 each 11/20/18 22:00 11/21/18 22:11 Lidoderm Patch Removal MC 1 each DAILY@2200 PAULA Administration Polyethylene Glycol 17 gm 11/20/18 11:00 11/22/18 10:55 Miralax (For Daily Use) - PO 17 gm DAILY PAULA Administration Impression 1. CKD 2. REBEKAH 3. morbid obesity 4. hx of bariatric surgery 5. DM 6. HTN 7. hypothyroidism 8. ovarian cyst Plan - cont with lasix - cont hctz - low potassium diet - decrease losartan to 25 mg - will need outpt follow up - avoid nsaids or nephrotoxins
== END 2018-11-22 17:47 | disposition home or self-care (01) | DRG 194 ==
LOC: JER 09:35 → SUPCPDRO 09:35 → JERBED 11:03 → J4W 21:01 → J5S 11-19 16:54
PROVIDERS: ADMIT Student in an Organized Health Care Education/Training Program; ATTEND Student in an Organized Health Care Education/Training Program
DX: I13.0 Hypertensive heart and chronic kidney disease with heart failure and stage 1 through stage 4 chronic kidney disease, or unspecified chronic kidney disease (principal); I50.33 Acute on chronic diastolic (congestive) heart failure; E66.01 Morbid (severe) obesity due to excess calories; E78.5 Hyperlipidemia, unspecified; J96.02 Acute respiratory failure with hypercapnia; J96.01 Acute respiratory failure with hypoxia; E03.9 Hypothyroidism, unspecified; G47.30 Sleep apnea, unspecified; J44.9 Chronic obstructive pulmonary disease, unspecified; Z68.43 Body mass index [BMI] 50.0-59.9, adult; E11.29 Type 2 diabetes mellitus with other diabetic kidney complication; N17.9 Acute kidney failure, unspecified; N83.209 Unspecified ovarian cyst, unspecified side; E87.2 Acidosis; N18.9 Chronic kidney disease, unspecified
CPT/HCPCS: 36415; 36600; 71045-TC-FY; 76775-TC; 76856-TC; 80048; 80053; 80061; 81003; 82550; 82553; 82803; 82962; 83036; 83721; 83735; 83880; 84100; 84443; 84484; 84703; 85025; 85027; 85610; 85730; 93005; 93010; 93306-TC; 94640; 94660; 99285-25; J1644; Q2036

== ENCOUNTER 2018-12-13 13:53 | Inpatient (IN) | payer OTHER ==
[2018-12-13] MEDS ORDERED: ALBUTEROL SO4 2.5/IPRATROPIUM 0.5 INH SOL 3 ML VIAL.NEB. NEB ONE ×2 (14:01→14:42)
[2018-12-13] MEDS ORDERED: methylPREDNISolone NA SUCC 125 MG/2 ML VIAL IVPUSH ONE (14:29)
[2018-12-13] MEDS: ALBUTEROL SO4 2.5/IPRATROPIUM 0.5 INH SOL 3 ML VIAL.NEB. NEB SCH ×2 (14:44→15:01)
[2018-12-13] MEDS ORDERED: methylPREDNISolone NA SUCC 125 MG/2 ML VIAL ONE (14:46)
[2018-12-13] MEDS ORDERED: MAGNESIUM SULF 50% (8.12 MEQ/2 ML-1 GM VIAL) IVPB ONE (14:46)
[2018-12-13] MEDS ORDERED: MAGNESIUM SULF 50% (8.12 MEQ/2 ML-1 GM VIAL) ONE (15:02)
--- NOTE | 2018-12-13 15:03 | PDOC ---
Documentation entered by Ancelmo Crook SCRIBE, acting as scribe for Omaira Turpin MD. Omaira Turpin MD: This documentation has been prepared by the Ambreen martin Nirvannie, SCRIBE, under my direction and personally reviewed by me in its entirety. I confirm that the documentation accurately reflects all work, treatment, procedures, and medical decision making performed by me. History of Present Illness - General Chief Complaint: Shortness of Breath Stated Complaint: COPD Time Seen by Provider: 12/13/18 14:20 History Source: Patient Exam Limitations: No Limitations - History of Present Illness Initial Comments: 12/13/18 15:03 The patient is a 48 year old female, with a significant past medical history of HTN, HLD, COPD (no history of intubations, has been admitted to ICU in the past , chronic orthopnea), IDDM, CKD, REBEKAH, morbid obesity, hyperkalemia, ovarian cyst , hypothyroidism, sleep apnea (wears CPAP at night at home), and recent hospitalization 11/15-11/22 for CHF/COPD exacerbation , who presents to the emergency department via EMS from home with, 2 days of nonproductive cough and shortness of breath. As per patient, her symptoms onset yesterday while at rest. She notes an associated chest pain and rib pain only when coughing with increased lower extremity edema and associated new onset nasal congestion and headache today. She notes seeing her PCP Dr. Samuel Levine today and notes he prescribed her an unknown antibiotic which she has not yet started. She notes upon her arrival home she began to experience subjective fevers and chills, prompting her arrival to the ED. Patient is up to date with her influenza shot. Patient notes getting one DuoNeb en route to the ED. Denies palpitations, dizziness, weakness, N, V, D, abdominal pain, bladder and bowel problems, focal weakness/paresthesias, rash. No sick contacts or travel. No new changes in medications. No suspicious food intake Allergies: None Past Medical History/PSH: HTN, HLD, COPD (no history of intubations, has been admitted to ICU in the past), IDDM, CKD, REBEKAH, morbid obesity, hyperkalemia, ovarian cyst, hypothyroidism, sleep apnea (wears CPAP at night at home). Gastric sleeve. Social history: Lives with family. Social ETOH. No tobacco or drug use. Meds: as documented in EMR Family history: noncontributory PMD: Dr. Samuel Levine Past History - Past Medical History Allergies/Adverse Reactions: Allergies Allergy/AdvReac Type Severity Reaction Status Date / Time No Known Allergies Allergy Verified 10/30/17 10:11 Home Medications: Ambulatory Orders Atorvastatin Ca [Lipitor] 40 mg PO HS #30 tablet 11/22/18 Cetirizine HCl [Zyrtec -] 10 mg PO DAILY 12/13/18 Ferrous Sulfate 325 mg PO DAILY 12/13/18 Furosemide [Lasix] 40 mg PO BID 12/13/18 Hydrochlorothiazide [Hctz -] 25 mg PO DAILY 12/13/18 Insulin Degludec [Tresiba Flextouch U-200] 55 units SQ DAILY 12/13/18 Insulin Lispro [Humalog] 36 unit SQ HS 12/13/18 Insulin Lispro [Humalog] 40 unit SQ AM 12/13/18 Levothyroxine [Synthroid -] 150 mcg PO DAILY 12/13/18 Lisinopril [Prinivil -] 40 mg PO DAILY 12/13/18 Metoprolol Tartrate [Lopressor] 100 mg PO DAILY 12/13/18 Semaglutide [Ozempic] 1 mg SQ WEEKLY 12/13/18 Anemia: No Asthma: Yes COPD: Yes Dementia: No Diabetes: Yes GI Disorders: Yes HTN: Yes Hypercholesterolemia: Yes Seizures: No Thyroid Disease: Yes - Surgical History Abdominal Surgery: (gastric sleeve) - Psycho Social/Smoking Cessation Hx Smoking History: Never smoked Have you smoked in the past 12 months: No Hx Alcohol Use: Yes (social) Drug/Substance Use Hx: No Substance Use Type: Alcohol Hx Substance Use Treatment: No Review of Systems - Review of Systems Able to Perform ROS?: Yes Comments:: 12/13/18 15:04 Constitutional:+Subjective fevers. HEENT: no headache or dizziness. No congestion. No visual/hearing disturbances. CVS: +Chest pain. no syncope. Resp: + sob. + cough. Gastrointestinal: no abdominal pain, nausea or vomiting. Genitourinary: no urinary sx, hematuria. MUSCULOSKELETAL: No joint pain and swelling. No neck or back pain. SKIN: no redness or skin changes, no discharge, no rash. No wounds. Hematologic: no easy bruising/bleeding. NEUROLOGIC: No headache, dizziness, LOC or altered mental status. No weakness, numbness or tingling. Psych: no anxiety or depression Allergic/Immunologic: no allergies All other systems reviewed and negative, or as documented in HPI. *Physical Exam - Vital Signs Last Vital Signs Temp Pulse Resp BP Pulse Ox 99.5 F 109 H 19 177/85 H 99 12/13/18 13:58 12/13/18 13:58 12/13/18 13:58 12/13/18 13:58 12/13/18 13:58 - Physical Exam Comments: 12/13/18 15:06 General: Well appearing, awake and alert, NAD. HEENT: NCAT, PERRL, EOMI, clear conjunctiva, anicteric, moist mucous membranes , clear oropharynx, no oral lesions. Neck: No JVD. neck supple, FROM Resp: +Faint blt wheezing. CVS: +Tachycardic, no murmurs, 2+ peripheral pulses throughout, no peripheral edema Abdomen: soft, NTND, no rebound or guarding. No CVAT. Back: nontender, normal inspection and ROM MSK: + 2+ blt LE edema. BOLAND x4, ROM intact. No clubbing or cyanosis. normal bulk and tone. Extremities: no calf tenderness Neuro: alert, oriented appropriately; no focal neurologic deficits Skin: warm and well perfused, cap refill <2 sec, normal color Heart Score/ECG Review #1 ECG reviewed & interpreted by me at: 14:50 General ECG Interpretation: Sinus Rhythm, Normal Intervals Compared to previous ECG there are: Changes noted 12/13/18 15:01 EKG sinus tachycardia 108 bpm, no interval abnormalities, narrow QRS, ST and T wave segments and morphology normal. Nonspecific T wave abnormalities ED Treatment Course - LABORATORY CBC & Chemistry Diagram: 12/14/18 07:30 12/14/18 07:30 - RADIOLOGY Radiology Studies Ordered: Category Date Time Status CHEST PA & LAT [RAD] Stat Radiology 12/13/18 14:21 Ordered Medical Decision Making - Medical Decision Making 12/13/18 14:45 Vital Signs Temp Pulse Resp BP Pulse Ox 99.5 F 109 H 19 177/85 H 99 12/13/18 13:58 12/13/18 13:58 12/13/18 13:58 12/13/18 13:58 12/13/18 13:58 VS reviewed, mild tachy likely from WOB, low grade temp mildly hypertensive. DDx SOB: ACS, PE, PTX, CHF, COPD exac, pulmonary edema, pleurisy, pneumonia, viral syndrome. effusion. anemia, electrolyte/metabolic derangements. Considered but clinically doubt based on HPI and PE: Low suspicion for pulmonary embolism or dissection. given Mg, duonebs, steroids, reassess, +wheezing but speaking full sentences. SPO2 appropriate labs and lytes with baseline Cr function. mild leukocytosis 12.2K. trop neg, bnp lower than prior. EKG sinus tachy, likely from exacerbation cxr with low lung volumes, no focal infiltrate seen, cardiomegaly, similar to prior CXR. reassess feels improved, comfortable. treating as copd vs bronchitis vs pneumonia, Ceftriaxone and doxycycline for CAP coverage and the comorbidities she displays. 12/13/18 17:21- paged out several times to Dr Jackman/[facility] group, no answer. so will admit to hospitalist, s/o to Dr Gomez, director internal communications, Dr Nolan overnight 12/13/18 17:25 12/14/18 09:58 Discharge - Discharge Information Problems reviewed: Yes Clinical Impression/Diagnosis: Pneumonia Qualifiers: Pneumonia type: due to unspecified organism Lung location: unspecified part of lung COPD (chronic obstructive pulmonary disease) Qualifiers: COPD type: unspecified COPD Qualified Code(s): J44.9 - Chronic obstructive pulmonary disease, unspecified Condition: Fair - Admission Yes - Follow up/Referral - Patient Discharge Instructions - Post Discharge Activity
[2018-12-13 15:11] LABS: BASO % 0.8 % (0-2.0); EOS % 2.4 % (0-4.5); HEMATOCRIT 32.3 % (32.4-45.2); HEMOGLOBIN 10.6 GM/dL (10.7-15.3); LYMPH % 19.3 % (8-40); MCH 29.4 pg (25.7-33.7); MCHC 32.8 g/dl (32.0-36.0); MEAN CELL VOLUME 89.6 fl (80-96); MEAN PLT VOLUME 9.9 fl (7.5-11.1); MONO % 6.6 % (3.8-10.2); NEUT % 70.9 % (42.8-82.8); PLATELET COUNT 238 K/MM3 (134-434); RDW 14.7 % (11.6-15.6); WHITE BLOOD COUNT 12.2 K/mm3 (4.0-10.0)
[2018-12-13] MEDS ORDERED: ACETAMINOPHEN 325 MG TABLET (FP) PO ONE (15:11)
[2018-12-13] MEDS ORDERED: CEFTRIAXONE 1,000 MG in DEXTROSE 5%-WATER - 50 ML IVPB ONE (15:12)
[2018-12-13] MEDS ORDERED: DOXYCYCLINE INJECTION 100 MG in DEXTROSE 5%-WATER - 100 ML IVPB ONE (15:12)
[2018-12-13] MEDS ORDERED: ACETAMINOPHEN 325 MG TABLET (FP) ONE (15:34)
[2018-12-13 15:35] LABS: ALBUMIN 3.2 g/dl (3.4-5.0); BILIRUBIN,TOTAL 0.3 mg/dL (0.2-1); BLOOD UREA NITROGEN 30.5 mg/dL (7-18); CALCIUM 8.5 mg/dL (8.5-10.1); CREATININE 2.3 mg/dL (0.55-1.3); POTASSIUM 4.7 mmol/L (3.5-5.1)
[2018-12-13] MEDS ORDERED: DOXYCYCLINE HYCLATE 100 MG VIAL ONE (15:35)
[2018-12-13] MEDS ORDERED: CEFTRIAXONE 1 GM/50 ML BAG ONE (15:35)
[2018-12-13] MEDS ORDERED: ALBUTEROL SO4 0.083% IH SOL 2.5 MG/3 ML VIAL.NEB. NEB PRN (18:32)
--- NOTE | 2018-12-13 18:34 | HP ---
CHIEF COMPLAINT: Shortness of breath PCP: Dr. Levine HISTORY OF PRESENT ILLNESS: 48 F with PMH significant for COPD, CHF (preserved EF), FLORES (uses CPAP every night), IDDM, CKD stage 4, hypothyroidism, who presents today with 2 days of worsening of shortness of breath. Patient began having ear pain and rhinorrhea 2 days ago. She developed a cough, and required using her home oxygen at 3L yesterday. She describes her cough as being occasionally productive with clear phlegm. She has had fever and chills at home without temperature measurements, and endorse chest pain in the mid-sternum. She went to see her PCP in the morning who prescribed her antibiotics that she was not able to fill the prescription for in the morning. She denies any smokers in the house and being exposed to any smoke; denies any sick contacts; any change in diet or habits. She has has had similar symptoms when she has had other admissions to hospitals. Denies any chest pain, any abdominal pain, any nausea/vomiting/ diarrhea, dysuria, hematuria. ER course was notable for: (1)EKG was done which showed Sinus Tachy, without any ST changes as compared to prior EKG. QTC was 490 (2)Chest x-ray was done which did not show any lobar consolidation or infiltrate , but had vascular congestion. (3)Ceftriaxone 1 gram, vibramycin 100 mg given, tylenol 975 mg given, solumedrol 125 given, magnesium 2 grams given. Recent Travel: None PAST MEDICAL HISTORY: COPD, CHF (preserved EF), FLORES (uses CPAP every night), IDDM, CKD stage 4, hypothyroidism, HLD, ovarian cyst, hyperkalemia, chronic low back pain LMP was 2 months ago, is usually regular. PAST SURGICAL HISTORY: Bariatric surgery in 2018, thyroid removal 8 years ago ( unsure if partial or total), I&D Social History: Smoking: Never Alcohol: Occasionally has 1 glass of wine Drugs: Denies Allergies No Known Allergies Allergy (Verified 10/30/17 10:11) HOME MEDICATIONS: Home Medications Medication Instructions Recorded Atorvastatin Ca [Lipitor] 40 mg PO HS #30 tablet 11/22/18 Cetirizine HCl [Zyrtec -] 10 mg PO DAILY 12/13/18 Ferrous Sulfate 325 mg PO DAILY 12/13/18 Hydrochlorothiazide [Hctz -] 25 mg PO DAILY 12/13/18 Insulin Degludec [Tresiba 55 units SQ DAILY 12/13/18 Flextouch U-200] Insulin Lispro [Humalog] 36 unit SQ HS 12/13/18 Insulin Lispro [Humalog] 40 unit SQ AM 12/13/18 Levothyroxine [Synthroid -] 150 mcg PO DAILY 12/13/18 Lisinopril [Prinivil -] 40 mg PO DAILY 12/13/18 Metoprolol Tartrate [Lopressor] 100 mg PO DAILY 12/13/18 Semaglutide [Ozempic] 1 mg SQ WEEKLY 12/13/18 REVIEW OF SYSTEMS In addition to above CONSTITUTIONAL: fever, chills, Absent: diaphoresis, generalized weakness, malaise, loss of appetite, weight change HEENT: rhinorrhea Absent:, nasal congestion, throat pain, throat swelling, difficulty swallowing, mouth swelling, ear pain, eye pain, visual changes CARDIOVASCULAR: chest pain, endorses swelling of her legs, orthopnea Absent: , syncope, palpitations, irregular heart rate, lightheadedness, GASTROINTESTINAL: Absent: abdominal pain, abdominal distension, nausea, vomiting, diarrhea, constipation, melena, hematochezia GENITOURINARY: Absent: dysuria, frequency, urgency, hesitancy, hematuria, flank pain, genital pain ENDOCRINE: Absent: unexplained weight gain, unexplained weight loss, heat intolerance, cold intolerance NEUROLOGIC: unsteady gait and uses cane to walk. Absent: headache, focal weakness or paresthesias, dizziness, seizure, mental status changes, bladder or bowel incontinence PSYCHIATRIC: Absent: anxiety, depression, suicidal or homicidal ideation, hallucinations. PHYSICAL EXAMINATION Vital Signs - 24 hr 12/13/18 12/13/18 12/13/18 13:58 15:13 16:00 Temperature 99.5 F 100.1 F H Pulse Rate 109 H Respiratory 19 Rate Blood Pressure 177/85 H O2 Sat by Pulse 99 97 Oximetry (%) GENERAL: Awake, alert, and fully oriented, in no acute distress. HEAD: Normal with no signs of trauma. EARS, NOSE, THROAT: Nasal Cannula @ 4LPM in place, moist mucus membranes. NECK: Normal range of motion LUNGS: Wheezes in the right middle lobe and left lung. HEART: Distant heart sounds, S1 S2, tachycardic. ABDOMEN: Soft, nontender, not distended, normoactive bowel sounds, MUSCULOSKELETAL: Normal range of motion at all joints. No bony deformities or tenderness. No CVA tenderness. UPPER EXTREMITIES: 2+ pulses, warm, well-perfused. No cyanosis. No clubbing. No peripheral edema. LOWER EXTREMITIES: 2+ pulses, warm, well-perfused. Calf tenderness. +2 edema NEUROLOGICAL: Cranial nerves grossly II-XII intact. Normal speech. PSYCHIATRIC: Cooperative. Good eye contact. Appropriate mood and affect. SKIN: Warm, dry, normal turgor, no rashes or lesions noted, normal capillary refill. Laboratory Results - last 24 hr 12/13/18 12/13/18 12/13/18 14:55 14:55 14:55 WBC 12.2 H RBC 3.60 Hgb 10.6 L Hct 32.3 L MCV 89.6 MCH 29.4 MCHC 32.8 RDW 14.7 Plt Count 238 MPV 9.9 Absolute Neuts (auto) 8.7 H Neutrophils % 70.9 Lymphocytes % 19.3 D Monocytes % 6.6 Eosinophils % 2.4 D Basophils % 0.8 D Nucleated RBC % 0 PTT (Actin FS) 33.4 Sodium Potassium Chloride Carbon Dioxide Anion Gap BUN Creatinine Est GFR (CKD-EPI)AfAm Est GFR (CKD-EPI)NonAf Random Glucose Calcium Magnesium Total Bilirubin AST ALT Alkaline Phosphatase Creatine Kinase 337 H Creatine Kinase Index 0.4 CK-MB (CK-2) 1.5 Troponin I < 0.02 B-Natriuretic Peptide Total Protein Albumin Serum , Qual Influenza A (Rapid) Influenza B (Rapid) 12/13/18 12/13/18 12/13/18 14:55 14:55 14:55 WBC RBC Hgb Hct MCV MCH MCHC RDW Plt Count MPV Absolute Neuts (auto) Neutrophils % Lymphocytes % Monocytes % Eosinophils % Basophils % Nucleated RBC % PTT (Actin FS) Sodium 140 Potassium 4.7 Chloride 109 H Carbon Dioxide 26 Anion Gap 5 L BUN 30.5 H Creatinine 2.3 H Est GFR (CKD-EPI)AfAm 28.38 Est GFR (CKD-EPI)NonAf 24.49 Random Glucose 110 H Calcium 8.5 Magnesium 2.1 Total Bilirubin 0.3 AST 33 ALT 23 Alkaline Phosphatase 119 H Creatine Kinase Creatine Kinase Index CK-MB (CK-2) Troponin I B-Natriuretic Peptide 1594.6 H Total Protein 8.0 Albumin 3.2 L Serum , Qual Influenza A (Rapid) Influenza B (Rapid) 12/13/18 12/13/18 14:55 15:06 WBC RBC Hgb Hct MCV MCH MCHC RDW Plt Count MPV Absolute Neuts (auto) Neutrophils % Lymphocytes % Monocytes % Eosinophils % Basophils % Nucleated RBC % PTT (Actin FS) Sodium Potassium Chloride Carbon Dioxide Anion Gap BUN Creatinine Est GFR (CKD-EPI)AfAm Est GFR (CKD-EPI)NonAf Random Glucose Calcium Magnesium Total Bilirubin AST ALT Alkaline Phosphatase Creatine Kinase Creatine Kinase Index CK-MB (CK-2) Troponin I B-Natriuretic Peptide Total Protein Albumin Serum , Qual Negative Influenza A (Rapid) Negative Influenza B (Rapid) Negative ASSESSMENT/PLAN: 48 F with PMH significant for COPD, CHF (preserved EF), FLORES (uses CPAP every night), IDDM, CKD stage 4, hypothyroidism who presents today with acute on chronic respiratory failure secondary to possible COPD exacerbation. 1) COPD exacerbation vs bronchitis vs CAP -Worsening shortness of breath over the past few days, normally uses home oxygen on exertion, has started using 3L home oxygen yesterday. -Patient felt symptomatic improvement with duonebs and solu-medrol treatment -Chest x-ray does not show pleural effusion, lobar consolidation, or pulmonary infiltrate -Influenza negative -WBC of 12.2 -F/U ABG -F/U blood culture -F/U Sputum culture -F/U CBC -Azithromycin 500 mg Stat, -Azithromycin 250 IV BID starting 12/14 -Solumedrol 60 mg Q8H -Duonebs PRN 2)CHF -BNP is 1594.6 -Continue home Lasix 40 mg PO BID -Continue Metoprolol 100 mg PO Daily 3)FLORES -4L Nasal Cannula 4)IDDM -Sliding scale insulin -Insulin Levemir 40 units AM -Insulin Levemir 36 units HS 5)Hypothyroidism -Continue levothyroxine 150 mcg daily 6)HLD -Continue atorvastatin 40 mg Daily 7) Chronic Back pain -Lidocaine patch F: No IV fluids E: Monitor Potassium N: Sodium/Diabetic Diet DVT: Heparin 5000 unit TID SQ Dispo: admitted to medicine team Visit type - Emergency Visit Emergency Visit: Yes ED Registration Date: 12/13/18 Care time: The patient presented to the Emergency Department on the above date and was hospitalized for further evaluation of their emergent condition. - New Patient This patient is new to me today: Yes Date on this admission: 12/13/18 - Critical Care Critical Care patient: No ATTENDING PHYSICIAN STATEMENT I saw and evaluated the patient. I reviewed the resident's note and discussed the case with the resident. I agree with the resident's findings and plan as documented. SUBJECTIVE: OBJECTIVE: ASSESSMENT AND PLAN:
[2018-12-13 19:03] LABS: ARTERIAL BLD GAS O2 SATURATION 97.4 % (95-98); ARTERIAL BLOOD GAS BASE EXCESS -4.6 meq/l (-2-2); ARTERIAL BLOOD GAS PCO2 35.9 mmHg (35-45); ARTERIAL BLOOD GAS PO2 101 mmHg (80-100); ARTERIAL BLOOD GAS pH 7.36 (7.35-7.45)
--- NOTE | 2018-12-13 20:24 | PN ---
Teaching Attending Note Name of Resident: Antionette Irby ATTENDING PHYSICIAN STATEMENT I saw and evaluated the patient. I reviewed the resident's note and discussed the case with the resident. I agree with the resident's findings and plan as documented. SUBJECTIVE: 48-year-old morbidly obese woman Non-smoker with a history of COPD, Diastolic CHF, obstructive sleep apnea on CPAP at night, insulin-dependent diabetes, CKD complained of worsening shortness of breath and nonproductive cough for 2 days. Reported pulmonary function test performed about a year ago in [place] but cannot recall the results. Has had gastric stapling performed 1 year ago and has lost 50 pounds.Reports being able to walk unlimited distance. Negative orthopnea OBJECTIVE: Last Vital Signs Temp Pulse Resp BP Pulse Ox 99.5 F 103 H 22 H 142/67 100 12/13/18 20:18 12/13/18 20:18 12/13/18 20:18 12/13/18 20:18 12/13/18 18:28 GENERAL: Morbidly obese not in acute distress nontoxic-appearing Can speak in full sentences HEENT: Normocephalic, atraumatic. PERRLA, EOMI. No conjunctival pallor. Sclera are non- icteric. Moist mucous membranes. Oropharynx is clear. NECK: Supple. Full ROM. No JVD. Carotid pulses 2+ and symmetric, without bruits. No thyromegaly. No lymphadenopathy. CARDIOVASCULAR: Regular rate and rhythm. No murmurs, rubs, or gallops. Distal pulses are 2+ and symmetric. PULMONARY: Bilateral air entry, bilateral wheezing appreciated ABDOMINAL: Soft. Non-tender. Non-distended. No rebound or guarding. No organomegaly. Normoactive bowel sounds. MUSCULOSKELETAL Normal range of motion at all joints. No bony deformities or tenderness. No CVA tenderness. EXTREMITIES: No cyanosis. No clubbing. No edema. No calf tenderness. SKIN: Warm and dry. Normal capillary refill. No rashes. No jaundice. PSYCHIATRIC: Cooperative. Good eye contact. Appropriate mood and affect. Abnormal Lab Results 12/13/18 12/13/18 12/13/18 14:55 14:55 14:55 WBC 12.2 H Hgb 10.6 L Hct 32.3 L Absolute Neuts (auto) 8.7 H ABG pO2 at Pt Temp ABG HCO3 ABG Base Excess Chloride 109 H Anion Gap 5 L BUN 30.5 H Creatinine 2.3 H Random Glucose 110 H Alkaline Phosphatase 119 H Creatine Kinase 337 H B-Natriuretic Peptide Albumin 3.2 L 12/13/18 12/13/18 14:55 18:35 WBC Hgb Hct Absolute Neuts (auto) ABG pO2 at Pt Temp 101 H ABG HCO3 19.7 L ABG Base Excess -4.6 L Chloride Anion Gap BUN Creatinine Random Glucose Alkaline Phosphatase Creatine Kinase B-Natriuretic Peptide 1594.6 H Albumin Imaging reviewed EKG reviewed ASSESSMENT AND PLAN: 48-year-old woman with COPD exacerbation, ABG appreciated.Suspect component of chronic FLORES and possible obesity hypoventilation syndrome Admit to [facility] nebs every 6 hours Methylprednisolone 60 mg IV every 8 CPAP at night for FLORES Azithromycin 500 mg IV daily Pulmonary evaluation Supplemental oxygen via nasal cannula #Diastolic CHFdo not suspect exacerbation at this time. Recent echo performed and results were appreciated Continue furosemide 40 mg p.o. twice daily Continue home dose metoprolol Would reconsider OLEKSANDR inhibitor in this case as patient has advanced CKD #Levothyroxine Send TSH Continue with Synthroid 150 mcg p.o. daily on an empty stomach #DVT prophylaxisheparin subcutaneously
[2018-12-13] MEDS ORDERED: AZITHROMYCIN IVPB 500 MG/250 ML BAG IVPB ONE (20:38)
[2018-12-13] MEDS: LIDOCAINE 5% TOPICAL PATCH TP SCH (21:53)
[2018-12-13] MEDS: HEPARIN NA (PORCINE) 5,000 UNITS/ML 1ML VIAL SQ SCH (21:53)
[2018-12-13] MEDS: INSULIN SLIDING SCALE (NOVOLOG) 1 VIAL SQ SCH (21:54)
[2018-12-13] MEDS: ATORVASTATIN CA 40 MG TABLET (FP) PO SCH (21:54)
[2018-12-13] MEDS: LIDOCAINE PATCH REMOVAL MC SCH (22:36)
[2018-12-13] MEDS: INSULIN (LEVEMIR) 100 UNITS/ML UNITS SQ SCH (23:06)
[2018-12-14] MEDS ORDERED: FUROSEMIDE 40 MG TABLET (FP) PO SCH ×2 (06:00→10:00)
[2018-12-14] MEDS: HEPARIN NA (PORCINE) 5,000 UNITS/ML 1ML VIAL SQ SCH ×3 (06:11→21:07)
[2018-12-14] MEDS: INSULIN SLIDING SCALE (NOVOLOG) 1 VIAL SQ SCH ×4 (06:11→21:09)
[2018-12-14] MEDS: INSULIN (LEVEMIR) 100 UNITS/ML UNITS SQ SCH ×2 (06:11→21:10)
[2018-12-14] MEDS: FUROSEMIDE 40 MG TABLET (FP) PO SCH ×2 (06:12→14:52)
[2018-12-14] MEDS: LEVOTHYROXINE NA 150 MCG TABLET PO SCH (06:13)
[2018-12-14] MEDS ORDERED: INSULIN (LEVEMIR) 100 UNITS/ML UNITS SQ ONE (06:52)
[2018-12-14] MEDS ORDERED: INSULIN (NOVOLOG) ASPART 100 UNITS/ML 10ML VIAL ONE ×2 (06:52→12:26)
[2018-12-14] MEDS: ALBUTEROL SO4 2.5/IPRATROPIUM 0.5 INH SOL 3 ML VIAL.NEB. NEB PRN ×2 (07:05→20:45)
[2018-12-14 07:56] LABS: BASO % 0.2 % (0-2.0); EOS % 0.1 % (0-4.5); HEMATOCRIT 30.5 % (32.4-45.2); MCH 29.2 pg (25.7-33.7); MCHC 32.9 g/dl (32.0-36.0); MEAN CELL VOLUME 88.9 fl (80-96); MEAN PLT VOLUME 9.5 fl (7.5-11.1); MONO % 2.2 % (3.8-10.2); NEUT % 84.5 % (42.8-82.8); PLATELET COUNT 218 K/MM3 (134-434); RBC 3.44 M/mm3 (3.60-5.2); RDW 14.8 % (11.6-15.6); WHITE BLOOD COUNT 12.5 K/mm3 (4.0-10.0)
[2018-12-14 08:29] LABS: ALBUMIN 3.1 g/dl (3.4-5.0); BILIRUBIN,TOTAL 0.2 mg/dL (0.2-1); BLOOD UREA NITROGEN 42.2 mg/dL (7-18); CALCIUM 8.6 mg/dL (8.5-10.1); CREATININE 2.9 mg/dL (0.55-1.3); MAGNESIUM 2.5 mg/dL (1.8-2.4); PHOSPHOROUS 3.1 mg/dL (2.5-4.9); POTASSIUM 4.1 mmol/L (3.5-5.1)
[2018-12-14] MEDS: AZITHROMYCIN IVPB 500 MG/250 ML BAG IVPB SCH (09:27)
[2018-12-14] MEDS: methylPREDNISolone NA SUCC 40 MG/1 ML VIAL IVPUSH SCH ×2 (09:27→17:20)
[2018-12-14] MEDS: LIDOCAINE 5% TOPICAL PATCH TP SCH (09:28)
[2018-12-14] MEDS: ACETAMINOPHEN 325 MG TABLET (FP) PO PRN ×2 (09:29→23:15)
[2018-12-14] MEDS ORDERED: CEFTRIAXONE 1 GM in DEXTROSE 5%-WATER - 50 ML IVPB SCH (10:00)
[2018-12-14] MEDS ORDERED: DOXYCYCLINE HYCLATE 100 MG CAPSULE PO SCH (10:00)
--- NOTE | 2018-12-14 11:29 | EKG ---
Test Reason : Blood Pressure : / mmHG Vent. Rate : 108 BPM Atrial Rate : 108 BPM P-R Int : 162 ms QRS Dur : 086 ms QT Int : 366 ms P-R-T Axes : 052 000 023 degrees QTc Int : 490 ms POOR DATA QUALITY, INTERPRETATION MAY BE ADVERSELY AFFECTED SINUS TACHYCARDIA WITH OCCASIONAL PREMATURE VENTRICULAR COMPLEXES OTHERWISE NORMAL ECG WHEN COMPARED WITH ECG OF 15-NOV-2018 10:01, PREMATURE VENTRICULAR COMPLEXES ARE NOW PRESENT Confirmed by SACHIN RUANO, MANDY ([id number]) on 12/14/2018 11:29:33 AM Referred By: Confirmed By:MANDY STEPHENSON MD
--- NOTE | 2018-12-14 14:05 | PN ---
Progress Note, Physician Chief Complaint: AWAKE ON NEB TX C/O SOB NO CP - Current Medication List Current Medications: Active Medications Acetaminophen (Tylenol -) 650 mg PO Q6H PRN PRN Reason: PAIN Last Admin: 12/14/18 09:29 Dose: 650 mg Albuterol/Ipratropium (Duoneb -) 1 amp NEB Q4H PRN PRN Reason: SHORTNESS OF BREATH Last Admin: 12/14/18 07:05 Dose: 1 amp Atorvastatin Calcium (Lipitor -) 40 mg PO HS REPLACED BY [facility] Last Admin: 12/13/18 21:54 Dose: 40 mg Furosemide (Lasix -) 40 mg PO BIDLASIX REPLACED BY [facility] Last Admin: 12/14/18 06:12 Dose: 40 mg Heparin Sodium (Porcine) (Heparin -) 5,000 unit SQ TID REPLACED BY [facility] Last Admin: 12/14/18 06:11 Dose: 5,000 unit Azithromycin (Zithromax 500mg Ivpb (Pre-Docked)) 500 mg in 250 mls @ 250 mls/ hr IVPB DAILY REPLACED BY [facility] Last Admin: 12/14/18 09:27 Dose: 250 mls/hr Insulin Aspart (Novolog Vial Sliding Scale -) 1 vial SQ ACHS REPLACED BY [facility]; Protocol Last Admin: 12/14/18 12:37 Dose: 2 units Insulin Detemir (Levemir Vial) 36 units SQ HS REPLACED BY [facility] Last Admin: 12/13/18 23:06 Dose: 36 units Insulin Detemir (Levemir Vial) 40 units SQ AM REPLACED BY [facility] Last Admin: 12/14/18 06:11 Dose: 40 units Levothyroxine Sodium (Synthroid -) 150 mcg PO AM REPLACED BY [facility] Last Admin: 12/14/18 06:13 Dose: 150 mcg Lidocaine (Lidoderm Patch -) 1 patch TP DAILY REPLACED BY [facility] Last Admin: 12/14/18 09:28 Dose: 1 patch Methylprednisolone Sodium Succinate (Solu-Medrol -) 60 mg IVPUSH Q8H REPLACED BY [facility] Last Admin: 12/14/18 09:27 Dose: 60 mg Metoprolol Succinate (Toprol Xl -) 100 mg PO DAILY REPLACED BY [facility] Last Admin: 12/14/18 09:28 Dose: 100 mg Miscellaneous (Lidoderm Patch Removal) 1 each MC DAILY@2200 REPLACED BY [facility] Last Admin: 12/13/18 22:36 Dose: Not Given - Objective Vital Signs: Vital Signs Temperature 98.5 F 12/14/18 06:00 Pulse Rate 95 H 12/14/18 06:00 Respiratory Rate 20 12/14/18 06:00 Blood Pressure 143/68 12/14/18 06:00 O2 Sat by Pulse Oximetry (%) 99 12/14/18 07:41 Constitutional: Yes: Mild Distress Cardiovascular: Yes: Regular Rate and Rhythm Respiratory: Yes: Diminished, On Nasal O2, Poor Air Entry, SOB Gastrointestinal: Yes: Soft, Abdomen, Obese Genitourinary: Yes: WNL Musculoskeletal: Yes: WNL Extremities: Yes: WNL Edema: No Peripheral Pulses WNL: Yes Integumentary: Yes: WNL Wound/Incision: Yes: Clean/Dry Neurological: Yes: WNL ...Motor Strength: WNL Psychiatric: Yes: WNL Labs: CBC, BMP 12/14/18 07:30 12/14/18 07:30 Problem List - Problems (1) COPD (chronic obstructive pulmonary disease) Code(s): J44.9 - CHRONIC OBSTRUCTIVE PULMONARY DISEASE, UNSPECIFIED Qualifiers: COPD type: unspecified COPD Qualified Code(s): J44.9 - Chronic obstructive pulmonary disease, unspecified (2) Pneumonia Code(s): J18.9 - PNEUMONIA, UNSPECIFIED ORGANISM Qualifiers: Pneumonia type: due to unspecified organism Lung location: unspecified part of lung (3) Acute respiratory failure with hypoxia and hypercapnia Code(s): J96.01 - ACUTE RESPIRATORY FAILURE WITH HYPOXIA; J96.02 - ACUTE RESPIRATORY FAILURE WITH HYPERCAPNIA (4) BMI 50.0-59.9, adult Code(s): Z68.43 - BODY MASS INDEX (BMI) 50.0-59.9, ADULT (5) CKD (chronic kidney disease) Code(s): N18.9 - CHRONIC KIDNEY DISEASE, UNSPECIFIED (6) Diabetes mellitus Code(s): E11.9 - TYPE 2 DIABETES MELLITUS WITHOUT COMPLICATIONS Qualifiers: Diabetes mellitus type: type 2 (7) HLD (hyperlipidemia) Code(s): E78.5 - HYPERLIPIDEMIA, UNSPECIFIED (8) HTN (hypertension) Code(s): I10 - ESSENTIAL (PRIMARY) HYPERTENSION (9) Sleep apnea with use of continuous positive airway pressure (CPAP) Code(s): G47.30 - SLEEP APNEA, UNSPECIFIED (10) Type 2 diabetes mellitus with other diabetic kidney complication Code(s): E11.29 - TYPE 2 DIABETES MELLITUS W OTH DIABETIC KIDNEY COMPLICATION Assessment/Plan IV STEROIDS AND ABX LASIX IV FOR CHF CARDIO/PULM EVAL CHECK BUN/CREAT WITH NEPHROLOGY EVAL 02 SPPORT SLEEP APNEA WITH BIPAP SUPPORT WILL NEED [employer] CLERK MAINTENANCE TO PREVENT CONTINUOUS READMISSIONS. WEIGHT LOSS/DIETARY EVAL
[2018-12-14] MEDS: ATORVASTATIN CA 40 MG TABLET (FP) PO SCH (21:06)
[2018-12-14] MEDS: LIDOCAINE PATCH REMOVAL MC SCH (21:07)
[2018-12-15] MEDS: methylPREDNISolone NA SUCC 40 MG/1 ML VIAL IVPUSH SCH ×4 (00:11→23:40)
[2018-12-15] MEDS: HEPARIN NA (PORCINE) 5,000 UNITS/ML 1ML VIAL SQ SCH ×3 (05:56→21:04)
[2018-12-15] MEDS: FUROSEMIDE 40 MG TABLET (FP) PO SCH ×2 (05:56→15:15)
[2018-12-15] MEDS: INSULIN (LEVEMIR) 100 UNITS/ML UNITS SQ SCH ×2 (06:00→21:06)
[2018-12-15] MEDS: LEVOTHYROXINE NA 150 MCG TABLET PO SCH (06:00)
[2018-12-15] MEDS: INSULIN SLIDING SCALE (NOVOLOG) 1 VIAL SQ SCH ×4 (06:00→21:05)
[2018-12-15] MEDS: AZITHROMYCIN IVPB 500 MG/250 ML BAG IVPB SCH (09:47)
[2018-12-15] MEDS: LIDOCAINE 5% TOPICAL PATCH TP SCH (09:47)
[2018-12-15] MEDS: PANTOPRAZOLE 40 MG TABLET (FP) PO SCH (09:55)
[2018-12-15 10:27] LABS: HEMATOCRIT 29.7 % (32.4-45.2); HEMOGLOBIN 9.5 GM/dL (10.7-15.3); MCH 28.6 pg (25.7-33.7); MCHC 32.2 g/dl (32.0-36.0); MEAN CELL VOLUME 88.9 fl (80-96); MEAN PLT VOLUME 9.8 fl (7.5-11.1); PLATELET COUNT 234 K/MM3 (134-434); RBC 3.34 M/mm3 (3.60-5.2); RDW 15.1 % (11.6-15.6); WHITE BLOOD COUNT 15.6 K/mm3 (4.0-10.0)
[2018-12-15 10:40] LABS: BLOOD UREA NITROGEN 55.5 mg/dL (7-18); CALCIUM 8.7 mg/dL (8.5-10.1); CREATININE 3.2 mg/dL (0.55-1.3); POTASSIUM 4.9 mmol/L (3.5-5.1)
--- NOTE | 2018-12-15 10:58 | CON.CARD ---
Consult Consult Specialty:: Cardiology Referred by:: Dr. Jackman Reason for Consultation:: Acute diastolic CHF - History of Present Illness Chief Complaint: Worsening SOB for 2 days. History of Present Illness: 48 year-old obese woman with a PMHx of HTN, chronic diastolic CHF, IDDM, CKD, COPD, FLORES (uses cPAP every night), hypothyroidism, admitted 12/13/18 with worsening dyspnea. The patient had worsening of shortness of breath for 2 days prior to this admission. Patient began having ear pain and rhinorrhea 2 days ago. She also had chest pain in the mid-sternum. Had cough, and required using her home oxygen and cough occasionally productive with clear phlegm. She also report fever and chills at home without temperature measurements. (1)BNP is elevated. EKG showed sinus rhythm with mild tachycardia. No ischemic changes. (2)Chest x-ray show no evidence lobar consolidation or infiltrate, but had vascular congestion. Echo 11/15/18: TDS. Grossly normal LV and RV. Mild LA dilatation. Mild MR and mild TR. - History Source History Provided By: Patient, Medical Record Limitations to Obtaining History: No Limitations - Past Medical History Cardio/Vascular: Yes: HTN, Hyperlipdemia Pulmonary: Yes: COPD Renal/: Yes: Renal Inusuff ...LMP: 08/12/18 ...: No Musculoskeletal: Yes: Chronic low back pain Endocrine: Yes: Diabetes Mellitus, Hypothyroidism - Past Surgical History Past Surgical History: Yes: Bariatric Surgery - Alcohol/Substance Use Hx Alcohol Use: Yes (social) - Smoking History Smoking history: Never smoked Have you smoked in the past 12 months: No Home Medications - Allergies Allergies/Adverse Reactions: Allergies Allergy/AdvReac Type Severity Reaction Status Date / Time No Known Allergies Allergy Verified 10/30/17 10:11 - Home Medications Home Medications: Ambulatory Orders Atorvastatin Ca [Lipitor] 40 mg PO HS #30 tablet 11/22/18 Cetirizine HCl [Zyrtec -] 10 mg PO DAILY 12/13/18 Ferrous Sulfate 325 mg PO DAILY 12/13/18 Furosemide [Lasix] 40 mg PO BID 12/13/18 Hydrochlorothiazide [Hctz -] 25 mg PO DAILY 12/13/18 Insulin Degludec [Tresiba Flextouch U-200] 55 units SQ DAILY 12/13/18 Insulin Lispro [Humalog] 36 unit SQ HS 12/13/18 Insulin Lispro [Humalog] 40 unit SQ AM 12/13/18 Levothyroxine [Synthroid -] 150 mcg PO DAILY 12/13/18 Lisinopril [Prinivil -] 40 mg PO DAILY 12/13/18 Metoprolol Tartrate [Lopressor] 100 mg PO DAILY 12/13/18 Semaglutide [Ozempic] 1 mg SQ WEEKLY 12/13/18 Review of Systems - Review of Systems Constitutional: reports: Chills, Fever Eyes: reports: No Symptoms HENT: reports: Ear Discharge, Ear Pain Neck: reports: No Symptoms Cardiovascular: reports: Chest Pain, Shortness of Breath Respiratory: reports: SOB, SOB on Exertion Gastrointestinal: reports: No Symptoms Genitourinary: reports: No Symptoms Breasts: reports: No Symptoms Reported Musculoskeletal: reports: No Symptoms Integumentary: reports: No Symptoms Neurological: reports: No Symptoms Endocrine: reports: No Symptoms Hematology/Lymphatic: reports: No Symptoms Vital Signs: Vital Signs Temperature 98.2 F 12/15/18 07:25 Pulse Rate 81 12/15/18 07:25 Respiratory Rate 20 12/15/18 07:25 Blood Pressure 161/72 12/15/18 07:25 O2 Sat by Pulse Oximetry (%) 99 12/15/18 04:03 General: Well developed. Obese. No acute distress. AAO X3. Head: Normocephalic. Atraumatic, Eyes: PERRLA, EOMI. Sclerae anicteric. Conjunctivae clear. ENT: Oropharynx, nares clear, mucosa moist without pallor or cyanosis Neck: Supple. No JVD. No bruits. No thyromegaly or lymphadenopathy, Heart: Normal S1, S2: Regular rate and rhythm. No murmur. No gallop or rub. Lungs: Symmetrical air poor entry. Bibasilar crackle. No wheezing or rhonchi. Abdomen: Soft. Bowel sound positive. Non tender. No masses. Extremities: Stasis with trace edema, clubbing or cyanosis. Peripheral pulses 2+ , equal bilaterally. Skin: Normal turgor. Warm and dry. No lesion. Neuro: Intact, no focal findings. - Other Data Labs, Other Data: CBC, BMP 12/15/18 09:38 12/15/18 09:38 Assessment/Plan 48 year-old obese woman with a PMHx of HTN, chronic diastolic CHF, IDDM, CKD, COPD, FLORES (uses cPAP every night), hypothyroidism, admitted 12/13/18 with worsening dyspnea. (1)BNP is elevated. EKG showed sinus rhythm with mild tachycardia. No ischemic changes. (2)Chest x-ray show no evidence lobar consolidation or infiltrate, but had vascular congestion. Echo 11/15/18: TDS. Grossly normal LV and RV. Mild LA dilatation. Mild MR and mild TR. 1) Worsening dyspnea likey due to combination of acute on chronic diastolic CHF and COPD exacerbation. -Continue IV furosemide 40 mg BID to keep Os > Is. Daily weight and monitor renal function and lytes. -BP and heart rate control as follows. 2) Hypertension: BP is moderately elevated. -Increase metoprolol succinate to 150 mg dialy -Add Norvasc 5 mg daily. We will follow the patient with you.
--- NOTE | 2018-12-15 16:00 | PN ---
Progress Note, Physician Chief Complaint: COPD Pneumonia History of Present Illness: Previous notes and events reviewed awake and alert NAD complain of SOB with exertion productive cough with white colored sputum - Current Medication List Current Medications: Active Medications Acetaminophen (Tylenol -) 650 mg PO Q6H PRN PRN Reason: PAIN Last Admin: 12/14/18 23:15 Dose: 650 mg Albuterol/Ipratropium (Duoneb -) 1 amp NEB Q4H PRN PRN Reason: SHORTNESS OF BREATH Last Admin: 12/14/18 20:45 Dose: 1 amp Atorvastatin Calcium (Lipitor -) 40 mg PO HS [facility] Last Admin: 12/14/18 21:06 Dose: 40 mg Furosemide (Lasix -) 40 mg PO BIDLASIX [facility] Last Admin: 12/15/18 15:15 Dose: 40 mg Heparin Sodium (Porcine) (Heparin -) 5,000 unit SQ TID [facility] Last Admin: 12/15/18 15:15 Dose: 5,000 unit Azithromycin (Zithromax 500mg Ivpb (Pre-Docked)) 500 mg in 250 mls @ 250 mls/ hr IVPB DAILY [facility] Last Admin: 12/15/18 09:47 Dose: 250 mls/hr Insulin Aspart (Novolog Vial Sliding Scale -) 1 vial SQ ACHS [facility]; Protocol Last Admin: 12/15/18 12:25 Dose: Not Given Insulin Detemir (Levemir Vial) 36 units SQ HS [facility] Last Admin: 12/14/18 21:10 Dose: 36 units Insulin Detemir (Levemir Vial) 40 units SQ AM [facility] Last Admin: 12/15/18 06:00 Dose: 40 units Levothyroxine Sodium (Synthroid -) 150 mcg PO AM [facility] Last Admin: 12/15/18 06:00 Dose: 150 mcg Lidocaine (Lidoderm Patch -) 1 patch TP DAILY [facility] Last Admin: 12/15/18 09:47 Dose: 1 patch Methylprednisolone Sodium Succinate (Solu-Medrol -) 60 mg IVPUSH Q8H [facility] Last Admin: 12/15/18 09:46 Dose: 60 mg Metoprolol Succinate (Toprol Xl -) 100 mg PO DAILY [facility] Last Admin: 12/15/18 09:46 Dose: 100 mg Miscellaneous (Lidoderm Patch Removal) 1 each MC DAILY@2200 [facility] Last Admin: 12/14/18 21:07 Dose: 1 each Pantoprazole Sodium (Protonix -) 40 mg PO DAILY [facility] Last Admin: 12/15/18 09:55 Dose: 40 mg - Objective Vital Signs: Vital Signs Temperature 98.7 F 12/15/18 15:00 Pulse Rate 88 12/15/18 15:00 Respiratory Rate 18 12/15/18 15:00 Blood Pressure 160/88 12/15/18 15:00 O2 Sat by Pulse Oximetry (%) 99 12/15/18 11:50 Constitutional: Yes: No Distress, Calm Eyes: Yes: Conjunctiva Clear HENT: Yes: Atraumatic Cardiovascular: Yes: Regular Rate and Rhythm Respiratory: Yes: Regular, On Nasal O2, Rhonchi Gastrointestinal: Yes: Normal Bowel Sounds, Soft, Abdomen, Obese Musculoskeletal: Yes: Muscle Weakness Extremities: Yes: WNL Edema: Yes Edema: LLE: 1+, RLE: 1+ Neurological: Yes: Alert, Oriented Psychiatric: Yes: Alert, Oriented Labs: CBC, BMP 12/15/18 09:38 12/15/18 09:38 Microbiology 12/13/18 15:48 Blood - Peripheral Venous Blood Culture - Preliminary NO GROWTH OBTAINED AFTER 48 HOURS, INCUBATION TO CONTINUE FOR 3 DAYS. 12/13/18 15:48 Blood - Peripheral Venous Blood Culture - Preliminary NO GROWTH OBTAINED AFTER 48 HOURS, INCUBATION TO CONTINUE FOR 3 DAYS. 12/13/18 22:50 Sputum - Expectorated Gram Stain - Final 12/13/18 22:50 Sputum - Expectorated Sputum Culture - Preliminary NORMAL RESPIRATORY AMAYA Problem List - Problems (1) COPD (chronic obstructive pulmonary disease) Assessment/Plan: -Pulm on board -CXR shows findingd suspicious for RLL pneumonia -Bronchodiltors -keep SpO2 >90% -Bipap HS -IV Medrol Code(s): J44.9 - CHRONIC OBSTRUCTIVE PULMONARY DISEASE, UNSPECIFIED Qualifiers: COPD type: unspecified COPD Qualified Code(s): J44.9 - Chronic obstructive pulmonary disease, unspecified (2) Pneumonia Assessment/Plan: -Pulm on board -CXR shows findingd suspicious for RLL pneumonia -Bronchodiltors -keep SpO2 >90% -Bipap HS -IV Medrol -Azithromycin -BC neg -Sputum Culture neg Code(s): J18.9 - PNEUMONIA, UNSPECIFIED ORGANISM Qualifiers: Pneumonia type: due to unspecified organism Lung location: unspecified part of lung (3) REBEKAH (acute kidney injury) Assessment/Plan: -BUN/Cr 55.5/3.2 -renal consult -monitor renal function Code(s): N17.9 - ACUTE KIDNEY FAILURE, UNSPECIFIED (4) CHF (congestive heart failure) Assessment/Plan: -Furosemide -daily weights -strict I&O -fluid restriction -Cardiology consult Code(s): I50.9 - HEART FAILURE, UNSPECIFIED (5) Diabetes mellitus Assessment/Plan: -[facility] -Levemir -HgA1c -diabetic diet Code(s): E11.9 - TYPE 2 DIABETES MELLITUS WITHOUT COMPLICATIONS Qualifiers: Diabetes mellitus type: type 2 (6) HLD (hyperlipidemia) Assessment/Plan: -Atorvastatin Code(s): E78.5 - HYPERLIPIDEMIA, UNSPECIFIED (7) HTN (hypertension) Assessment/Plan: -Metoprolol -low Na diet Code(s): I10 - ESSENTIAL (PRIMARY) HYPERTENSION (8) Hypothyroid Assessment/Plan: -Levothyroxine Code(s): E03.9 - HYPOTHYROIDISM, UNSPECIFIED Assessment/Plan see problem list dvt ppx
[2018-12-15] MEDS ORDERED: PT OWN MED DRAWER 7, Y5N ONE (18:11)
[2018-12-15] MEDS ORDERED: INSULIN (NOVOLOG) ASPART 100 UNITS/ML 10ML VIAL ONE (20:21)
[2018-12-15] MEDS: LIDOCAINE PATCH REMOVAL MC SCH (21:05)
[2018-12-15] MEDS: ATORVASTATIN CA 40 MG TABLET (FP) PO SCH (21:05)
[2018-12-15] MEDS: ACETAMINOPHEN 325 MG TABLET (FP) PO PRN (22:25)
[2018-12-16] MEDS: HEPARIN NA (PORCINE) 5,000 UNITS/ML 1ML VIAL SQ SCH ×3 (06:01→21:32)
[2018-12-16] MEDS: FUROSEMIDE 40 MG TABLET (FP) PO SCH ×2 (06:01→13:12)
[2018-12-16] MEDS: LEVOTHYROXINE NA 150 MCG TABLET PO SCH (06:02)
[2018-12-16] MEDS: INSULIN SLIDING SCALE (NOVOLOG) 1 VIAL SQ SCH ×4 (06:27→21:36)
[2018-12-16] MEDS: INSULIN (LEVEMIR) 100 UNITS/ML UNITS SQ SCH ×2 (06:27→21:34)
[2018-12-16 08:14] LABS: HEMATOCRIT 30.9 % (32.4-45.2); HEMOGLOBIN 10.1 GM/dL (10.7-15.3); MCH 28.8 pg (25.7-33.7); MCHC 32.5 g/dl (32.0-36.0); MEAN CELL VOLUME 88.6 fl (80-96); MEAN PLT VOLUME 9.7 fl (7.5-11.1); PLATELET COUNT 256 K/MM3 (134-434); RBC 3.49 M/mm3 (3.60-5.2); RDW 14.8 % (11.6-15.6); WHITE BLOOD COUNT 13.6 K/mm3 (4.0-10.0)
[2018-12-16 08:42] LABS: BILIRUBIN,TOTAL 0.2 mg/dL (0.2-1); BLOOD UREA NITROGEN 67.9 mg/dL (7-18); CALCIUM 8.8 mg/dL (8.5-10.1); CREATININE 2.9 mg/dL (0.55-1.3); POTASSIUM 4.7 mmol/L (3.5-5.1); TOT PROT 7.7 g/dl (6.4-8.2)
[2018-12-16] MEDS: methylPREDNISolone NA SUCC 40 MG/1 ML VIAL IVPUSH SCH ×3 (09:01→23:18)
--- NOTE | 2018-12-16 09:25 | CON.PULM ---
Consult Consult Specialty:: PULM/CCM Referred by:: JOSEPH Reason for Consultation:: SOB - History of Present Illness Chief Complaint: SOB History of Present Illness: 48 F COPD, CHF (preserved EF), FLORES on nightly CPAP therapy, IDDM, CKD stage 4, and hypothyroidism. Admitted via the ER due to worsening shortness of breath, cough, and subjective fever and chills. No travel history or sick contacts. No hemoptysis or night sweats. She also reports some mid-sternal discomfort mostly with coughing. CXR: Possible early RLL infiltrate - History Source History Provided By: Patient - Past Medical History Cardio/Vascular: Yes: HTN, Hyperlipdemia Pulmonary: Yes: Bronchitis, COPD, Pneumonia, Sleep Apnea. No: Asthma, Cancer, O2 Dependent, Previously Intubated, Pulmonary Embolus, Pulmonary Fibrosis Renal/: Yes: Renal Inusuff ...LMP: 08/12/18 ...: No Musculoskeletal: Yes: Chronic low back pain Endocrine: Yes: Diabetes Mellitus, Hypothyroidism - Past Surgical History Past Surgical History: Yes: Bariatric Surgery - Alcohol/Substance Use Hx Alcohol Use: Yes (social) - Smoking History Smoking history: Never smoked Have you smoked in the past 12 months: No Home Medications - Allergies Allergies/Adverse Reactions: Allergies Allergy/AdvReac Type Severity Reaction Status Date / Time No Known Allergies Allergy Verified 10/30/17 10:11 - Home Medications Home Medications: Ambulatory Orders Atorvastatin Ca [Lipitor] 40 mg PO HS #30 tablet 11/22/18 Cetirizine HCl [Zyrtec -] 10 mg PO DAILY 12/13/18 Ferrous Sulfate 325 mg PO DAILY 12/13/18 Furosemide [Lasix] 40 mg PO BID 12/13/18 Hydrochlorothiazide [Hctz -] 25 mg PO DAILY 12/13/18 Insulin Degludec [Tresiba Flextouch U-200] 55 units SQ DAILY 12/13/18 Insulin Lispro [Humalog] 36 unit SQ HS 12/13/18 Insulin Lispro [Humalog] 40 unit SQ AM 12/13/18 Levothyroxine [Synthroid -] 150 mcg PO DAILY 12/13/18 Lisinopril [Prinivil -] 40 mg PO DAILY 12/13/18 Metoprolol Tartrate [Lopressor] 100 mg PO DAILY 12/13/18 Semaglutide [Ozempic] 1 mg SQ WEEKLY 12/13/18 Review of Systems - Review of Systems Constitutional: reports: Chills, Fever, Malaise. denies: Night Sweats, Weakness Eyes: reports: No Symptoms HENT: reports: No Symptoms Neck: reports: No Symptoms Cardiovascular: reports: Chest Pain, Edema, Shortness of Breath. denies: Palpitations Respiratory: reports: Cough, Snoring, SOB, SOB on Exertion, Wheezing. denies: Hemoptysis, Orthopnea, PND Gastrointestinal: reports: No Symptoms Genitourinary: reports: No Symptoms Breasts: reports: No Symptoms Reported Musculoskeletal: reports: No Symptoms Integumentary: reports: No Symptoms Neurological: reports: No Symptoms Endocrine: reports: No Symptoms Hematology/Lymphatic: reports: No Symptoms Psychiatric: reports: No Symptoms Physical Exam Vital Sings: Vital Signs Temperature 97.9 F 12/16/18 06:00 Pulse Rate 70 12/16/18 06:00 Respiratory Rate 20 12/16/18 06:00 Blood Pressure 142/76 12/16/18 06:00 O2 Sat by Pulse Oximetry (%) 97 12/16/18 08:27 Constitutional: Yes: No Distress, Obese Eyes: Yes: Conjunctiva Clear, EOM Intact HENT: Yes: Atraumatic, Normocephalic Neck: Yes: Supple, Trachea Midline Cardiovascular: Yes: Regular Rate and Rhythm Respiratory: Yes: Cough, Diminished, On Nasal O2, Rhonchi, SOB, SOB on Exertion , Tachypnea, Wheezes. No: Accessory Muscle Use, Rales, Stridor ...Inspection: Yes: WNL Gastrointestinal: Yes: Normal Bowel Sounds, Soft, Abdomen, Obese Renal/: Yes: WNL Musculoskeletal: Yes: WNL Extremities: Yes: WNL Edema: Yes Peripheral Pulses WNL: Yes Integumentary: Yes: WNL Neurological: Yes: WNL, Alert, Oriented ...Motor Strength: WNL Psychiatric: Yes: WNL, Alert, Oriented Labs: CBC, BMP 12/16/18 07:37 12/16/18 07:37 ABG Results ABG pH 7.36 (7.35-7.45) 12/13/18 18:35 ABG pCO2 at Pt Temp 35.9 mmHg (35-45) 12/13/18 18:35 ABG pO2 at Pt Temp 101 mmHg (80-100) H 12/13/18 18:35 ABG HCO3 19.7 mmol/L (22-27) L 12/13/18 18:35 ABG O2 Sat (Measured) 97.4 % (95-98) 12/13/18 18:35 ABG O2 Content 14.1 % vol 12/13/18 18:35 ABG Base Excess -4.6 meq/l (-2-2) L 12/13/18 18:35 Imaging - Results Chest X-ray: Report Reviewed, Image Reviewed Problem List - Problems (1) COPD (chronic obstructive pulmonary disease) Code(s): J44.9 - CHRONIC OBSTRUCTIVE PULMONARY DISEASE, UNSPECIFIED Qualifiers: COPD type: unspecified COPD Qualified Code(s): J44.9 - Chronic obstructive pulmonary disease, unspecified (2) Pneumonia Code(s): J18.9 - PNEUMONIA, UNSPECIFIED ORGANISM Qualifiers: Pneumonia type: due to unspecified organism Lung location: unspecified part of lung (3) BMI 50.0-59.9, adult Code(s): Z68.43 - BODY MASS INDEX (BMI) 50.0-59.9, ADULT (4) CHF (congestive heart failure) Code(s): I50.9 - HEART FAILURE, UNSPECIFIED (5) CKD (chronic kidney disease) Code(s): N18.9 - CHRONIC KIDNEY DISEASE, UNSPECIFIED (6) Diabetes mellitus Code(s): E11.9 - TYPE 2 DIABETES MELLITUS WITHOUT COMPLICATIONS Qualifiers: Diabetes mellitus type: type 2 (7) HLD (hyperlipidemia) Code(s): E78.5 - HYPERLIPIDEMIA, UNSPECIFIED (8) HTN (hypertension) Code(s): I10 - ESSENTIAL (PRIMARY) HYPERTENSION (9) Hypercholesteremia Code(s): E78.00 - PURE HYPERCHOLESTEROLEMIA, UNSPECIFIED (10) Hypertension Code(s): I10 - ESSENTIAL (PRIMARY) HYPERTENSION Qualifiers: Hypertension type: unspecified Qualified Code(s): I10 - Essential (primary ) hypertension (11) Hypothyroid Code(s): E03.9 - HYPOTHYROIDISM, UNSPECIFIED (12) SOB (shortness of breath) Code(s): R06.02 - SHORTNESS OF BREATH (13) Sleep apnea with use of continuous positive airway pressure (CPAP) Code(s): G47.30 - SLEEP APNEA, UNSPECIFIED (14) Type 2 diabetes mellitus with other diabetic kidney complication Code(s): E11.29 - TYPE 2 DIABETES MELLITUS W OTH DIABETIC KIDNEY COMPLICATION Assessment/Plan Noted empiric ABX and ID consultation was called. Would be a good scenario for use of Procalcitonin BD TX standing and PRN Medrol Check sputum Check urinary antigen NIPPV ordered for use QHS and PRN VTE prophylaxis No smoking discussed Will follow Thank you. Dr Malloy
[2018-12-16] MEDS: LIDOCAINE 5% TOPICAL PATCH TP SCH (09:32)
[2018-12-16] MEDS: AZITHROMYCIN IVPB 500 MG/250 ML BAG IVPB SCH (09:32)
[2018-12-16] MEDS: PANTOPRAZOLE 40 MG TABLET (FP) PO SCH (09:32)
--- NOTE | 2018-12-16 11:05 | PN ---
Progress Note, Physician Chief Complaint: patient awake alert sitting up in bed used bipap at night on iv abx for pna - Current Medication List Current Medications: Active Medications Acetaminophen (Tylenol -) 650 mg PO Q6H PRN PRN Reason: PAIN Last Admin: 12/15/18 22:25 Dose: 650 mg Albuterol Sulfate (Ventolin 0.083% Nebulizer Soln -) 1 amp NEB RTID [facility] Albuterol/Ipratropium (Duoneb -) 1 amp NEB Q4H PRN PRN Reason: SHORTNESS OF BREATH Last Admin: 12/14/18 20:45 Dose: 1 amp Atorvastatin Calcium (Lipitor -) 40 mg PO HS [facility] Last Admin: 12/15/18 21:05 Dose: 40 mg Furosemide (Lasix -) 40 mg PO BIDLASIX [facility] Last Admin: 12/16/18 06:01 Dose: 40 mg Heparin Sodium (Porcine) (Heparin -) 5,000 unit SQ TID [facility] Last Admin: 12/16/18 06:01 Dose: 5,000 unit Azithromycin (Zithromax 500mg Ivpb (Pre-Docked)) 500 mg in 250 mls @ 250 mls/ hr IVPB DAILY [facility] Last Admin: 12/16/18 09:32 Dose: 250 mls/hr Insulin Aspart (Novolog Vial Sliding Scale -) 1 vial SQ [facility]; Protocol Last Admin: 12/16/18 06:27 Dose: Not Given Insulin Detemir (Levemir Vial) 36 units SQ HS [facility] Last Admin: 12/15/18 21:06 Dose: 36 units Insulin Detemir (Levemir Vial) 40 units SQ AM [facility] Last Admin: 12/16/18 06:27 Dose: 40 units Levothyroxine Sodium (Synthroid -) 150 mcg PO AM [facility] Last Admin: 12/16/18 06:02 Dose: 150 mcg Lidocaine (Lidoderm Patch -) 1 patch TP DAILY [facility] Last Admin: 12/16/18 09:32 Dose: 1 patch Methylprednisolone Sodium Succinate (Solu-Medrol -) 60 mg IVPUSH Q8H [facility] Last Admin: 12/16/18 09:01 Dose: 60 mg Metoprolol Succinate (Toprol Xl -) 100 mg PO DAILY [facility] Last Admin: 12/16/18 09:32 Dose: 100 mg Miscellaneous (Lidoderm Patch Removal) 1 each MC DAILY@2200 [facility] Last Admin: 12/15/18 21:05 Dose: 1 each Pantoprazole Sodium (Protonix -) 40 mg PO DAILY [facility] Last Admin: 12/16/18 09:32 Dose: 40 mg - Objective Vital Signs: Vital Signs Temperature 97.9 F 12/16/18 06:00 Pulse Rate 70 12/16/18 06:00 Respiratory Rate 20 12/16/18 06:00 Blood Pressure 142/76 12/16/18 06:00 O2 Sat by Pulse Oximetry (%) 97 12/16/18 08:27 Constitutional: Yes: Calm Cardiovascular: Yes: Regular Rate and Rhythm, S1, S2 Respiratory: Yes: CTA Bilaterally, Diminished (at bases) Gastrointestinal: Yes: Normal Bowel Sounds, Soft Neurological: Yes: Alert Labs: CBC, BMP 12/16/18 07:37 12/16/18 07:37 Problem List - Problems (1) Pneumonia Assessment/Plan: oxygen NIPPV at night medrol iv bax ID and pulm on board urinary antigens ordered Code(s): J18.9 - PNEUMONIA, UNSPECIFIED ORGANISM Qualifiers: Pneumonia type: due to unspecified organism Lung location: unspecified part of lung (2) Diabetes mellitus Assessment/Plan: levemir sliding scale Code(s): E11.9 - TYPE 2 DIABETES MELLITUS WITHOUT COMPLICATIONS Qualifiers: Diabetes mellitus type: type 2 (3) Hypothyroid Assessment/Plan: synthroid TSH Code(s): E03.9 - HYPOTHYROIDISM, UNSPECIFIED (4) Hypercholesteremia Assessment/Plan: atorvastatin Code(s): E78.00 - PURE HYPERCHOLESTEROLEMIA, UNSPECIFIED
[2018-12-16] MEDS ORDERED: INSULIN (NOVOLOG) ASPART 100 UNITS/ML 10ML VIAL ONE ×2 (12:00→16:39)
[2018-12-16] MEDS: ALBUTEROL SO4 0.083% IH SOL 2.5 MG/3 ML VIAL.NEB. NEB SCH ×2 (13:50→20:19)
--- NOTE | 2018-12-16 14:16 | PN ---
Progress Note, Physician Chief Complaint: Shortness of breath History of Present Illness: 48 year-old obese woman with a PMHx of HTN, chronic diastolic CHF, IDDM, CKD, COPD, FLORES (uses cPAP every night), hypothyroidism, admitted 12/13/18 with worsening dyspnea. The patient had worsening of shortness of breath for 2 days prior to this admission. Patient began having ear pain and rhinorrhea 2 days ago. She also had chest pain in the mid-sternum. Had cough, and required using her home oxygen and cough occasionally productive with clear phlegm. She also report fever and chills at home without temperature measurements. (1)BNP is elevated. EKG showed sinus rhythm with mild tachycardia. No ischemic changes. (2)Chest x-ray show no evidence lobar consolidation or infiltrate, but had vascular congestion. Echo 11/15/18: TDS. Grossly normal LV and RV. Mild LA dilatation. Mild MR and mild TR. - Current Medication List Current Medications: Active Medications Acetaminophen (Tylenol -) 650 mg PO Q6H PRN PRN Reason: PAIN Last Admin: 12/15/18 22:25 Dose: 650 mg Albuterol Sulfate (Ventolin 0.083% Nebulizer Soln -) 1 amp NEB RTID [facility] Albuterol/Ipratropium (Duoneb -) 1 amp NEB Q4H PRN PRN Reason: SHORTNESS OF BREATH Last Admin: 12/14/18 20:45 Dose: 1 amp Atorvastatin Calcium (Lipitor -) 40 mg PO HS [facility] Last Admin: 12/15/18 21:05 Dose: 40 mg Furosemide (Lasix -) 40 mg PO BIDLASIX [facility] Last Admin: 12/16/18 13:12 Dose: 40 mg Heparin Sodium (Porcine) (Heparin -) 5,000 unit SQ TID [facility] Last Admin: 12/16/18 13:12 Dose: 5,000 unit Azithromycin (Zithromax 500mg Ivpb (Pre-Docked)) 500 mg in 250 mls @ 250 mls/ hr IVPB DAILY [facility] Last Admin: 12/16/18 09:32 Dose: 250 mls/hr Insulin Aspart (Novolog Vial Sliding Scale -) 1 vial SQ ACHS [facility]; Protocol Last Admin: 12/16/18 12:02 Dose: 2 units Insulin Detemir (Levemir Vial) 36 units SQ HS [facility] Last Admin: 12/15/18 21:06 Dose: 36 units Insulin Detemir (Levemir Vial) 40 units SQ AM [facility] Last Admin: 12/16/18 06:27 Dose: 40 units Levothyroxine Sodium (Synthroid -) 150 mcg PO AM [facility] Last Admin: 12/16/18 06:02 Dose: 150 mcg Lidocaine (Lidoderm Patch -) 1 patch TP DAILY [facility] Last Admin: 12/16/18 09:32 Dose: 1 patch Methylprednisolone Sodium Succinate (Solu-Medrol -) 60 mg IVPUSH Q8H [facility] Last Admin: 12/16/18 09:01 Dose: 60 mg Metoprolol Succinate (Toprol Xl -) 100 mg PO DAILY [facility] Last Admin: 12/16/18 09:32 Dose: 100 mg Miscellaneous (Lidoderm Patch Removal) 1 each MC DAILY@2200 [facility] Last Admin: 12/15/18 21:05 Dose: 1 each Pantoprazole Sodium (Protonix -) 40 mg PO DAILY [facility] Last Admin: 12/16/18 09:32 Dose: 40 mg - Objective Vital Signs: Vital Signs Temperature 97.9 F 12/16/18 06:00 Pulse Rate 70 12/16/18 06:00 Respiratory Rate 20 12/16/18 09:00 Blood Pressure 142/76 12/16/18 06:00 O2 Sat by Pulse Oximetry (%) 97 12/16/18 09:00 Constitutional: Yes: No Distress, Calm, Obese Eyes: Yes: WNL, Conjunctiva Clear, EOM Intact HENT: Yes: WNL, Atraumatic, Normocephalic Neck: Yes: WNL, Supple, Trachea Midline Cardiovascular: Yes: WNL, Regular Rate and Rhythm, S1, S2 Respiratory: Yes: WNL, Regular, Rales, Rhonchi Gastrointestinal: Yes: WNL, Normal Bowel Sounds, Soft ...Rectal Exam: Yes: Deferred Genitourinary: Yes: WNL Extremities: Yes: WNL Edema: LLE: Trace, RLE: Trace Peripheral Pulses: Left Radial: 1+, Right Radial: 1+, Left Doralis Pedis: 1+, Right Dorsalis Pedis: 1+, Left Femoral: 1+, Right Femoral: 1+ Neurological: Yes: WNL, Alert, Oriented ...Motor Strength: WNL Psychiatric: Yes: WNL, Alert, Oriented Labs: CBC, BMP 11/11/19 07:37 12/16/18 07:37 Assessment/Plan 48 year-old obese woman with a PMHx of HTN, chronic diastolic CHF, IDDM, CKD, COPD, FLORES (uses cPAP every night), hypothyroidism, admitted 12/13/18 with worsening dyspnea. The patient had worsening of shortness of breath for 2 days prior to this admission. Patient began having ear pain and rhinorrhea 2 days ago. She also had chest pain in the mid-sternum. Had cough, and required using her home oxygen and cough occasionally productive with clear phlegm. She also report fever and chills at home without temperature measurements. (1)BNP is elevated. EKG showed sinus rhythm with mild tachycardia. No ischemic changes. (2)Chest x-ray show no evidence lobar consolidation or infiltrate, but had vascular congestion. Echo 11/15/18: TDS. Grossly normal LV and RV. Mild LA dilatation. Mild MR and mild TR. Bhe patient is clinically and symptomatically improved. Breathing much better. please start Norvasc 5 mg daily for better blood pressure control. Strict salt and fluid restrictions. The patient needs to understandsthat salt and fluid restrictionsshould be continued indefinitely at home. No need for further cardiac workup at this point. Please arrange for an outpatient follow-up with Dr.Neufeld munoz one week of discharge. Please do not hesitate to call us PRN.
--- NOTE | 2018-12-16 14:56 | CONSULT ---
Consult Consult Specialty:: Nephrology Reason for Consultation:: CKD - History of Present Illness Chief Complaint: shortness of breath and cough History of Present Illness: Pt is a 48 year old female with pmhx of ckd, copd, obesity, chf, rikki, dm, and hypothyroidism who presents to the er with worsening shortness of breath and cough. She complains of a productive cough. She went to see her pmd who gave her abx however she did not fill the script as she felt too ill. SHe was found to have elevated clinical care coordinator and I was called to evaluate her. She denies worsening of her lower ext edema. She denies chest pain. She was admitted about a month ago with similar symptoms. - History Source History Provided By: Patient Limitations to Obtaining History: No Limitations - Past Medical History Cardio/Vascular: Yes: HTN, Hyperlipdemia Pulmonary: Yes: Bronchitis, COPD, Pneumonia, Sleep Apnea Renal/: Yes: Renal Inusuff ...LMP: 08/12/18 ...: No Musculoskeletal: Yes: Chronic low back pain Endocrine: Yes: Diabetes Mellitus, Hypothyroidism - Past Surgical History Past Surgical History: Yes: Bariatric Surgery - Alcohol/Substance Use Hx Alcohol Use: Yes (social) - Smoking History Smoking history: Never smoked Have you smoked in the past 12 months: No Home Medications - Allergies Allergies/Adverse Reactions: Allergies Allergy/AdvReac Type Severity Reaction Status Date / Time No Known Allergies Allergy Verified 10/30/17 10:11 - Home Medications Home Medications: Ambulatory Orders Atorvastatin Ca [Lipitor] 40 mg PO HS #30 tablet 11/22/18 Cetirizine HCl [Zyrtec -] 10 mg PO DAILY 12/13/18 Ferrous Sulfate 325 mg PO DAILY 12/13/18 Furosemide [Lasix] 40 mg PO BID 12/13/18 Hydrochlorothiazide [Hctz -] 25 mg PO DAILY 12/13/18 Insulin Degludec [Tresiba Flextouch U-200] 55 units SQ DAILY 12/13/18 Insulin Lispro [Humalog] 36 unit SQ HS 12/13/18 Insulin Lispro [Humalog] 40 unit SQ AM 12/13/18 Levothyroxine [Synthroid -] 150 mcg PO DAILY 12/13/18 Lisinopril [Prinivil -] 40 mg PO DAILY 12/13/18 Metoprolol Tartrate [Lopressor] 100 mg PO DAILY 12/13/18 Semaglutide [Ozempic] 1 mg SQ WEEKLY 12/13/18 Family Medical History Family History: Denies Review of Systems - Review of Systems Constitutional: reports: Chills, Malaise Eyes: reports: No Symptoms HENT: reports: No Symptoms Neck: reports: No Symptoms Cardiovascular: reports: Edema Respiratory: reports: Cough, SOB, SOB on Exertion Genitourinary: reports: No Symptoms Musculoskeletal: reports: No Symptoms Integumentary: reports: No Symptoms Neurological: reports: No Symptoms Endocrine: reports: No Symptoms Hematology/Lymphatic: reports: No Symptoms Psychiatric: reports: No Symptoms Physical Exam Vital Signs: Vital Signs Temperature 97.9 F 12/16/18 06:00 Pulse Rate 70 12/16/18 06:00 Respiratory Rate 20 12/16/18 09:00 Blood Pressure 142/76 12/16/18 06:00 O2 Sat by Pulse Oximetry (%) 97 12/16/18 09:00 Constitutional: Yes: Calm Eyes: Yes: Conjunctiva Clear HENT: Yes: Atraumatic Neck: Yes: Supple Cardiovascular: Yes: S1, S2 Respiratory: Yes: On Nasal O2, Wheezes Gastrointestinal: Yes: Normal Bowel Sounds, Soft, Abdomen, Obese Renal/: Yes: WNL Musculoskeletal: Yes: WNL Edema: Yes Edema: LLE: 1+, RLE: 1+ Integumentary: Yes: Venous Stasis Changes Neurological: Yes: Oriented Psychiatric: Yes: Oriented Labs: CBC, BMP 12/16/18 07:37 12/16/18 07:37 Laboratory Tests 11/21/18 11/22/18 12/13/18 08:35 06:45 15:06 Creatinine 2.9 H 2.8 H Influenza A (Rapid) Negative Influenza B (Rapid) Negative 12/14/18 12/15/18 12/16/18 07:30 09:38 07:37 Creatinine 2.9 H 3.2 H 2.9 H Influenza A (Rapid) Influenza B (Rapid) Imaging - Results Chest X-ray: Report Reviewed Problem List - Problems (1) COPD (chronic obstructive pulmonary disease) Code(s): J44.9 - CHRONIC OBSTRUCTIVE PULMONARY DISEASE, UNSPECIFIED Qualifiers: COPD type: unspecified COPD Qualified Code(s): J44.9 - Chronic obstructive pulmonary disease, unspecified (2) Pneumonia Code(s): J18.9 - PNEUMONIA, UNSPECIFIED ORGANISM Qualifiers: Pneumonia type: due to unspecified organism Lung location: unspecified part of lung (3) REBEKAH (acute kidney injury) Code(s): N17.9 - ACUTE KIDNEY FAILURE, UNSPECIFIED (4) BMI 50.0-59.9, adult Code(s): Z68.43 - BODY MASS INDEX (BMI) 50.0-59.9, ADULT (5) CHF (congestive heart failure) Code(s): I50.9 - HEART FAILURE, UNSPECIFIED (6) CKD (chronic kidney disease) Code(s): N18.9 - CHRONIC KIDNEY DISEASE, UNSPECIFIED Assessment/Plan Current Medications Generic Name Dose Route Start Last Admin Trade Name Freq PRN Reason Stop Dose Admin Acetaminophen 650 mg 12/14/18 08:00 12/15/18 22:25 Tylenol - PO 650 mg Q6H PRN Administration PAIN Albuterol Sulfate 1 amp 12/16/18 14:00 Ventolin 0.083% Nebulizer Soln - NEB RTID PAULA Albuterol/Ipratropium 1 amp 12/13/18 20:00 12/14/18 20:45 Duoneb - NEB 1 amp Q4H PRN Administration SHORTNESS OF BREATH Atorvastatin Calcium 40 mg 12/13/18 22:00 12/15/18 21:05 Lipitor - PO 40 mg HS PAULA Administration Furosemide 40 mg 12/14/18 06:00 12/16/18 13:12 Lasix - PO 40 mg BIDLASIX PAULA Administration Heparin Sodium (Porcine) 5,000 unit 12/13/18 22:00 12/16/18 13:12 Heparin - SQ 5,000 unit TID PAULA Administration Azithromycin 500 mg in 250 mls @ 250 mls/hr 12/14/18 10:00 12/16/18 09:32 Zithromax 500mg Ivpb (Pre-Docked) IVPB 250 mls/hr DAILY [facility]A Administration Insulin Aspart 1 vial 12/13/18 22:00 12/16/18 12:02 Novolog Vial Sliding Scale - SQ 2 units ACHS PAULA Administration Protocol Insulin Detemir 36 units 12/13/18 22:00 12/15/18 21:06 Levemir Vial SQ 36 units HS PAULA Administration Insulin Detemir 40 units 12/14/18 07:00 12/16/18 06:27 Levemir Vial SQ 40 units AM [facility] Administration Levothyroxine Sodium 150 mcg 12/14/18 07:00 12/16/18 06:02 Synthroid - PO 150 mcg AM [facility] Administration Lidocaine 1 patch 12/13/18 21:00 12/16/18 09:32 Lidoderm Patch - TP 1 patch DAILY [facility] Administration Methylprednisolone Sodium Succinate 60 mg 12/14/18 08:00 12/16/18 09:01 Solu-Medrol - IVPUSH 60 mg Q8H PA[facility] Administration Metoprolol Succinate 100 mg 12/14/18 10:00 12/16/18 09:32 Toprol Xl - PO 100 mg DAILY [facility] Administration Miscellaneous 1 each 12/13/18 22:00 12/15/18 21:05 Lidoderm Patch Removal MC 1 each DAILY@2200 [facility] Administration Pantoprazole Sodium 40 mg 12/15/18 10:00 12/16/18 09:32 Protonix - PO 40 mg DAILY [facility]A Administration Impression 1. CKD 2. REBEKAH 3. morbid obesity 4. hx of bariatric surgery 5. DM 6. HTN 7. hypothyroidism 8. ovarian cyst 9. PNA Plan - repeat labs in am - cont lasix - avoid nsaids - avoid nephrotoxins - will trend creatinine - steroids with taper as tolerated
[2018-12-16] MEDS: ACETAMINOPHEN 325 MG TABLET (FP) PO PRN ×2 (16:29→23:26)
[2018-12-16] MEDS: ATORVASTATIN CA 40 MG TABLET (FP) PO SCH (21:34)
[2018-12-16] MEDS: LIDOCAINE PATCH REMOVAL MC SCH (21:35)
[2018-12-17] MEDS: INSULIN (LEVEMIR) 100 UNITS/ML UNITS SQ SCH ×2 (06:19→21:30)
[2018-12-17] MEDS: HEPARIN NA (PORCINE) 5,000 UNITS/ML 1ML VIAL SQ SCH ×3 (06:20→22:36)
[2018-12-17] MEDS: INSULIN SLIDING SCALE (NOVOLOG) 1 VIAL SQ SCH ×4 (06:20→21:33)
[2018-12-17] MEDS: FUROSEMIDE 40 MG TABLET (FP) PO SCH ×2 (06:20→13:10)
[2018-12-17] MEDS: LEVOTHYROXINE NA 150 MCG TABLET PO SCH (06:20)
[2018-12-17] MEDS: ACETAMINOPHEN 325 MG TABLET (FP) PO PRN ×3 (06:24→22:44)
[2018-12-17] MEDS: ALBUTEROL SO4 0.083% IH SOL 2.5 MG/3 ML VIAL.NEB. NEB SCH ×4 (07:20→20:15)
[2018-12-17 08:12] LABS: BASO % 0.1 % (0-2.0); HEMATOCRIT 32.5 % (32.4-45.2); HEMOGLOBIN 10.5 GM/dL (10.7-15.3); MCH 28.5 pg (25.7-33.7); MCHC 32.4 g/dl (32.0-36.0); MEAN CELL VOLUME 88.1 fl (80-96); MEAN PLT VOLUME 10.1 fl (7.5-11.1); MONO % 3.4 % (3.8-10.2); NEUT % 78.5 % (42.8-82.8); PLATELET COUNT 263 K/MM3 (134-434); RBC 3.69 M/mm3 (3.60-5.2); RDW 14.4 % (11.6-15.6); WHITE BLOOD COUNT 12.6 K/mm3 (4.0-10.0)
[2018-12-17 08:52] LABS: ALBUMIN 2.9 g/dl (3.4-5.0); BILIRUBIN,TOTAL 0.2 mg/dL (0.2-1); BLOOD UREA NITROGEN 67.2 mg/dL (7-18); CALCIUM 8.6 mg/dL (8.5-10.1); CREATININE 2.7 mg/dL (0.55-1.3); POTASSIUM 4.6 mmol/L (3.5-5.1); TOT PROT 7.4 g/dl (6.4-8.2)
[2018-12-17] MEDS: methylPREDNISolone NA SUCC 40 MG/1 ML VIAL IVPUSH SCH ×3 (09:17→23:20)
[2018-12-17] MEDS: LIDOCAINE 5% TOPICAL PATCH TP SCH (09:17)
[2018-12-17] MEDS: PANTOPRAZOLE 40 MG TABLET (FP) PO SCH (09:18)
--- NOTE | 2018-12-17 09:19 | PN ---
Progress Note (short form) - Note Progress Note: Breathing feels a little better today. No change in cough. No acute events overnight. Intake & Output 12/14/18 12/15/18 12/16/18 12/17/18 23:59 23:59 23:59 23:59 Intake Total 800 600 1.5 Output Total 715 086 5620 Balance 800 200 -950 -1198.5 Weight 324 lb 7 oz 327 lb 9.6 oz 327 lb 6.4 oz 325 lb 4 oz Last Vital Signs Temp Pulse Resp BP Pulse Ox 98.4 F 67 20 158/88 97 12/17/18 06:33 12/17/18 06:33 12/17/18 06:33 12/17/18 06:33 12/17/18 08:12 Active Medications Acetaminophen (Tylenol -) 650 mg PO Q6H PRN PRN Reason: PAIN Last Admin: 12/17/18 06:24 Dose: 650 mg Albuterol Sulfate (Ventolin 0.083% Nebulizer Soln -) 1 amp NEB RTID [facility] Last Admin: 12/17/18 07:20 Dose: 1 amp Albuterol/Ipratropium (Duoneb -) 1 amp NEB Q4H PRN PRN Reason: SHORTNESS OF BREATH Last Admin: 12/14/18 20:45 Dose: 1 amp Atorvastatin Calcium (Lipitor -) 40 mg PO HS PAULA Last Admin: 12/16/18 21:34 Dose: 40 mg Furosemide (Lasix -) 40 mg PO BIDLASIX PAULA Last Admin: 12/17/18 06:20 Dose: 40 mg Heparin Sodium (Porcine) (Heparin -) 5,000 unit SQ TID PAULA Last Admin: 12/17/18 06:20 Dose: 5,000 unit Azithromycin (Zithromax 500mg Ivpb (Pre-Docked)) 500 mg in 250 mls @ 250 mls/ hr IVPB DAILY [facility] Last Admin: 12/16/18 09:32 Dose: 250 mls/hr Insulin Aspart (Novolog Vial Sliding Scale -) 1 vial SQ ACHS [facility]; Protocol Last Admin: 12/17/18 06:20 Dose: Not Given Insulin Detemir (Levemir Vial) 36 units SQ HS [facility] Last Admin: 12/16/18 21:34 Dose: 36 units Insulin Detemir (Levemir Vial) 40 units SQ AM [facility] Last Admin: 12/17/18 06:19 Dose: 40 units Levothyroxine Sodium (Synthroid -) 150 mcg PO AM [facility] Last Admin: 12/17/18 06:20 Dose: 150 mcg Lidocaine (Lidoderm Patch -) 1 patch TP DAILY [facility] Last Admin: 12/16/18 09:32 Dose: 1 patch Methylprednisolone Sodium Succinate (Solu-Medrol -) 60 mg IVPUSH Q8H [facility] Last Admin: 12/16/18 23:18 Dose: 60 mg Metoprolol Succinate (Toprol Xl -) 100 mg PO DAILY [facility] Last Admin: 12/16/18 09:32 Dose: 100 mg Miscellaneous (Lidoderm Patch Removal) 1 each MC DAILY@2200 [facility] Last Admin: 12/16/18 21:35 Dose: 1 each Pantoprazole Sodium (Protonix -) 40 mg PO DAILY [facility] Last Admin: 12/16/18 09:32 Dose: 40 mg Constitutional: Yes: No Distress, Obese Eyes: Yes: Conjunctiva Clear, EOM Intact HENT: Yes: Atraumatic, Normocephalic Neck: Yes: Supple, Trachea Midline Cardiovascular: Yes: Regular Rate and Rhythm Respiratory: Yes: Cough, Diminished, On Nasal O2, Rhonchi. No: Accessory Muscle Use, Rales, Stridor ...Inspection: Yes: WNL Gastrointestinal: Yes: Normal Bowel Sounds, Soft, Abdomen, Obese Renal/: Yes: WNL Musculoskeletal: Yes: WNL Extremities: Yes: WNL Edema: Yes Peripheral Pulses WNL: Yes Integumentary: Yes: WNL Neurological: Yes: WNL, Alert, Oriented ...Motor Strength: WNL Psychiatric: Yes: WNL, Alert, Oriented Labs: Laboratory Results - last 24 hr 12/16/18 12/16/18 12/16/18 11:58 16:28 21:31 WBC RBC Hgb Hct MCV MCH MCHC RDW Plt Count MPV Absolute Neuts (auto) Neutrophils % Lymphocytes % Monocytes % Eosinophils % Basophils % Nucleated RBC % Sodium Potassium Chloride Carbon Dioxide Anion Gap BUN Creatinine Est GFR (CKD-EPI)AfAm Est GFR (CKD-EPI)NonAf POC Glucometer 168 199 301 Random Glucose Calcium Total Bilirubin AST ALT Alkaline Phosphatase Total Protein Albumin TSH 12/17/18 12/17/18 12/17/18 06:17 07:40 07:40 WBC 12.6 H RBC 3.69 Hgb 10.5 L Hct 32.5 MCV 88.1 MCH 28.5 MCHC 32.4 RDW 14.4 Plt Count 263 MPV 10.1 Absolute Neuts (auto) 9.9 H Neutrophils % 78.5 Lymphocytes % 18.0 D Monocytes % 3.4 L Eosinophils % 0.0 D Basophils % 0.1 Nucleated RBC % 0 Sodium 137 Potassium 4.6 Chloride 107 Carbon Dioxide 24 Anion Gap 6 L BUN 67.2 H Creatinine 2.7 H Est GFR (CKD-EPI)AfAm 23.38 Est GFR (CKD-EPI)NonAf 20.17 POC Glucometer 101 Random Glucose 94 Calcium 8.6 Total Bilirubin 0.2 AST 18 ALT 25 Alkaline Phosphatase 85 Total Protein 7.4 Albumin 2.9 L TSH 0.15 L Problem List - Problems (1) COPD (chronic obstructive pulmonary disease) Code(s): J44.9 - CHRONIC OBSTRUCTIVE PULMONARY DISEASE, UNSPECIFIED Qualifiers: COPD type: unspecified COPD Qualified Code(s): J44.9 - Chronic obstructive pulmonary disease, unspecified (2) Pneumonia Code(s): J18.9 - PNEUMONIA, UNSPECIFIED ORGANISM Qualifiers: Pneumonia type: due to unspecified organism Lung location: unspecified part of lung (3) BMI 50.0-59.9, adult Code(s): Z68.43 - BODY MASS INDEX (BMI) 50.0-59.9, ADULT (4) CHF (congestive heart failure) Code(s): I50.9 - HEART FAILURE, UNSPECIFIED (5) CKD (chronic kidney disease) Code(s): N18.9 - CHRONIC KIDNEY DISEASE, UNSPECIFIED (6) Diabetes mellitus Code(s): E11.9 - TYPE 2 DIABETES MELLITUS WITHOUT COMPLICATIONS Qualifiers: Diabetes mellitus type: type 2 (7) HLD (hyperlipidemia) Code(s): E78.5 - HYPERLIPIDEMIA, UNSPECIFIED (8) HTN (hypertension) Code(s): I10 - ESSENTIAL (PRIMARY) HYPERTENSION (9) Hypercholesteremia Code(s): E78.00 - PURE HYPERCHOLESTEROLEMIA, UNSPECIFIED (10) Hypertension Code(s): I10 - ESSENTIAL (PRIMARY) HYPERTENSION Qualifiers: Hypertension type: unspecified Qualified Code(s): I10 - Essential (primary ) hypertension (11) Hypothyroid Code(s): E03.9 - HYPOTHYROIDISM, UNSPECIFIED (12) SOB (shortness of breath) Code(s): R06.02 - SHORTNESS OF BREATH (13) Sleep apnea with use of continuous positive airway pressure (CPAP) Code(s): G47.30 - SLEEP APNEA, UNSPECIFIED (14) Type 2 diabetes mellitus with other diabetic kidney complication Code(s): E11.29 - TYPE 2 DIABETES MELLITUS W OTH DIABETIC KIDNEY COMPLICATION Assessment/Plan Empiric ABX BD TX standing and PRN Medrol: Can likely change to Prednisone in the AM NIPPV ordered for use QHS and PRN VTE prophylaxis No smoking discussed Dr Malloy Problem List - Problems (1) COPD (chronic obstructive pulmonary disease) Code(s): J44.9 - CHRONIC OBSTRUCTIVE PULMONARY DISEASE, UNSPECIFIED Qualifiers: COPD type: unspecified COPD Qualified Code(s): J44.9 - Chronic obstructive pulmonary disease, unspecified (2) Pneumonia Code(s): J18.9 - PNEUMONIA, UNSPECIFIED ORGANISM Qualifiers: Pneumonia type: due to unspecified organism Lung location: unspecified part of lung (3) BMI 50.0-59.9, adult Code(s): Z68.43 - BODY MASS INDEX (BMI) 50.0-59.9, ADULT (4) CHF (congestive heart failure) Code(s): I50.9 - HEART FAILURE, UNSPECIFIED (5) CKD (chronic kidney disease) Code(s): N18.9 - CHRONIC KIDNEY DISEASE, UNSPECIFIED (6) Diabetes mellitus Code(s): E11.9 - TYPE 2 DIABETES MELLITUS WITHOUT COMPLICATIONS Qualifiers: Diabetes mellitus type: type 2 (7) HLD (hyperlipidemia) Code(s): E78.5 - HYPERLIPIDEMIA, UNSPECIFIED (8) HTN (hypertension) Code(s): I10 - ESSENTIAL (PRIMARY) HYPERTENSION (9) Hypercholesteremia Code(s): E78.00 - PURE HYPERCHOLESTEROLEMIA, UNSPECIFIED (10) Hypertension Code(s): I10 - ESSENTIAL (PRIMARY) HYPERTENSION Qualifiers: Hypertension type: unspecified Qualified Code(s): I10 - Essential (primary ) hypertension (11) Hypothyroid Code(s): E03.9 - HYPOTHYROIDISM, UNSPECIFIED (12) SOB (shortness of breath) Code(s): R06.02 - SHORTNESS OF BREATH (13) Sleep apnea with use of continuous positive airway pressure (CPAP) Code(s): G47.30 - SLEEP APNEA, UNSPECIFIED (14) Type 2 diabetes mellitus with other diabetic kidney complication Code(s): E11.29 - TYPE 2 DIABETES MELLITUS W OTH DIABETIC KIDNEY COMPLICATION
[2018-12-17] MEDS: AZITHROMYCIN IVPB 500 MG/250 ML BAG IVPB SCH (11:02)
[2018-12-17] MEDS ORDERED: INSULIN (NOVOLOG) ASPART 100 UNITS/ML 10ML VIAL ONE ×4 (12:05→21:09)
[2018-12-17 13:53] LABS: ANISOCYTOSIS 0; MACROCYTOSIS 0; PLATELET ESTIMATE NORMAL
--- NOTE | 2018-12-17 14:28 | PN ---
Progress Note, Physician History of Present Illness: Pt seen and examined at bedside. She says that she feels her breathing is a little better today. - Current Medication List Current Medications: Active Medications Acetaminophen (Tylenol -) 650 mg PO Q6H PRN PRN Reason: PAIN Last Admin: 12/17/18 06:24 Dose: 650 mg Albuterol Sulfate (Ventolin 0.083% Nebulizer Soln -) 1 amp NEB RTID [facility] Last Admin: 12/17/18 07:20 Dose: 1 amp Albuterol/Ipratropium (Duoneb -) 1 amp NEB Q4H PRN PRN Reason: SHORTNESS OF BREATH Last Admin: 12/14/18 20:45 Dose: 1 amp Atorvastatin Calcium (Lipitor -) 40 mg PO HS [facility] Last Admin: 12/16/18 21:34 Dose: 40 mg Furosemide (Lasix -) 40 mg PO BIDLASIX [facility]ULA Last Admin: 12/17/18 13:10 Dose: 40 mg Heparin Sodium (Porcine) (Heparin -) 5,000 unit SQ TID [facility] Last Admin: 12/17/18 13:10 Dose: 5,000 unit Azithromycin (Zithromax 500mg Ivpb (Pre-Docked)) 500 mg in 250 mls @ 250 mls/ hr IVPB DAILY [facility] Last Admin: 12/17/18 11:02 Dose: 250 mls/hr Insulin Aspart (Novolog Vial Sliding Scale -) 1 vial SQ ACHS [facility]; Protocol Last Admin: 12/17/18 12:11 Dose: 2 units Insulin Detemir (Levemir Vial) 36 units SQ HS [facility] Last Admin: 12/16/18 21:34 Dose: 36 units Insulin Detemir (Levemir Vial) 40 units SQ AM [facility] Last Admin: 12/17/18 06:19 Dose: 40 units Levothyroxine Sodium (Synthroid -) 150 mcg PO AM [facility] Last Admin: 12/17/18 06:20 Dose: 150 mcg Lidocaine (Lidoderm Patch -) 1 patch TP DAILY [facility] Last Admin: 12/17/18 09:17 Dose: 1 patch Methylprednisolone Sodium Succinate (Solu-Medrol -) 60 mg IVPUSH Q8H [facility] Last Admin: 12/17/18 09:17 Dose: 60 mg Metoprolol Succinate (Toprol Xl -) 100 mg PO DAILY [facility] Last Admin: 12/17/18 09:18 Dose: 100 mg Miscellaneous (Lidoderm Patch Removal) 1 each MC DAILY@2200 [facility] Last Admin: 12/16/18 21:35 Dose: 1 each Pantoprazole Sodium (Protonix -) 40 mg PO DAILY [facility] Last Admin: 12/17/18 09:18 Dose: 40 mg - Objective Vital Signs: Vital Signs Temperature 98.2 F 12/17/18 12:04 Pulse Rate 72 12/17/18 12:04 Respiratory Rate 18 12/17/18 10:00 Blood Pressure 156/91 12/17/18 12:04 O2 Sat by Pulse Oximetry (%) 98 12/17/18 09:00 Constitutional: Yes: Calm Eyes: Yes: Conjunctiva Clear HENT: Yes: Atraumatic Cardiovascular: Yes: S1, S2 Respiratory: Yes: On Nasal O2, Wheezes Gastrointestinal: Yes: Soft, Abdomen, Obese Musculoskeletal: Yes: WNL Edema: Yes Edema: LLE: 1+, RLE: 1+ Neurological: Yes: Oriented Psychiatric: Yes: Oriented Labs: CBC, BMP 12/17/18 07:40 12/17/18 07:40 Problem List - Problems (1) COPD (chronic obstructive pulmonary disease) Code(s): J44.9 - CHRONIC OBSTRUCTIVE PULMONARY DISEASE, UNSPECIFIED Qualifiers: COPD type: unspecified COPD Qualified Code(s): J44.9 - Chronic obstructive pulmonary disease, unspecified (2) Pneumonia Code(s): J18.9 - PNEUMONIA, UNSPECIFIED ORGANISM Qualifiers: Pneumonia type: due to unspecified organism Lung location: unspecified part of lung (3) REBEKAH (acute kidney injury) Code(s): N17.9 - ACUTE KIDNEY FAILURE, UNSPECIFIED (4) BMI 50.0-59.9, adult Code(s): Z68.43 - BODY MASS INDEX (BMI) 50.0-59.9, ADULT (5) CHF (congestive heart failure) Code(s): I50.9 - HEART FAILURE, UNSPECIFIED (6) CKD (chronic kidney disease) Code(s): N18.9 - CHRONIC KIDNEY DISEASE, UNSPECIFIED Assessment/Plan Current Medications Generic Name Dose Route Start Last Admin Trade Name Freq PRN Reason Stop Dose Admin Acetaminophen 650 mg 12/14/18 08:00 12/17/18 06:24 Tylenol - PO 650 mg Q6H PRN Administration PAIN Albuterol Sulfate 1 amp 12/16/18 14:00 12/17/18 07:20 Ventolin 0.083% Nebulizer Soln - NEB 1 amp RTID PAULA Administration Albuterol/Ipratropium 1 amp 12/13/18 20:00 12/14/18 20:45 Duoneb - NEB 1 amp Q4H PRN Administration SHORTNESS OF BREATH Atorvastatin Calcium 40 mg 12/13/18 22:00 12/16/18 21:34 Lipitor - PO 40 mg HS [facility] Administration Furosemide 40 mg 12/14/18 06:00 12/17/18 13:10 Lasix - PO 40 mg BIDLASIX [facility] Administration Heparin Sodium (Porcine) 5,000 unit 12/13/18 22:00 12/17/18 13:10 Heparin - SQ 5,000 unit TID [facility] Administration Azithromycin 500 mg in 250 mls @ 250 mls/hr 12/14/18 10:00 12/17/18 11:02 Zithromax 500mg Ivpb (Pre-Docked) IVPB 250 mls/hr DAILY [facility] Administration Insulin Aspart 1 vial 12/13/18 22:00 12/17/18 12:11 Novolog Vial Sliding Scale - SQ 2 units ACHS [facility] Administration Protocol Insulin Detemir 36 units 12/13/18 22:00 12/16/18 21:34 Levemir Vial SQ 36 units HS [facility] Administration Insulin Detemir 40 units 12/14/18 07:00 12/17/18 06:19 Levemir Vial SQ 40 units AM [facility] Administration Levothyroxine Sodium 150 mcg 12/14/18 07:00 12/17/18 06:20 Synthroid - PO 150 mcg AM [facility] Administration Lidocaine 1 patch 12/13/18 21:00 12/17/18 09:17 Lidoderm Patch - TP 1 patch DAILY [facility] Administration Methylprednisolone Sodium Succinate 60 mg 12/14/18 08:00 12/17/18 09:17 Solu-Medrol - IVPUSH 60 mg Q8H [facility] Administration Metoprolol Succinate 100 mg 12/14/18 10:00 12/17/18 09:18 Toprol Xl - PO 100 mg DAILY [facility] Administration Miscellaneous 1 each 12/13/18 22:00 12/16/18 21:35 Lidoderm Patch Removal MC 1 each DAILY@2200 [facility] Administration Pantoprazole Sodium 40 mg 12/15/18 10:00 12/17/18 09:18 Protonix - PO 40 mg DAILY [facility] Administration Impression 1. CKD 2. REBEKAH 3. morbid obesity 4. hx of bariatric surgery 5. DM 6. HTN 7. hypothyroidism 8. ovarian cyst 9. PNA Plan - cont lasix - resume losartan - monitor renal function - avoid nsaids - avoid nephrotoxins - will trend creatinine - steroids with taper as tolerated
[2018-12-17] MEDS: LOSARTAN POTASSIUM 50 MG TABLET (FP) PO SCH (15:03)
--- NOTE | 2018-12-17 15:34 | PN ---
Progress Note, Physician Chief Complaint: COPD Pneumonia History of Present Illness: Previous notes and events reviewed awake and alert NAD complain of SOB with exertion productive cough with white colored sputum BP elevated with complaints of headache - Current Medication List Current Medications: Active Medications Acetaminophen (Tylenol -) 650 mg PO Q6H PRN PRN Reason: PAIN Last Admin: 12/17/18 15:02 Dose: 650 mg Albuterol Sulfate (Ventolin 0.083% Nebulizer Soln -) 1 amp NEB RTID [facility] Last Admin: 12/17/18 14:40 Dose: 1 amp Albuterol/Ipratropium (Duoneb -) 1 amp NEB Q4H PRN PRN Reason: SHORTNESS OF BREATH Last Admin: 12/14/18 20:45 Dose: 1 amp Atorvastatin Calcium (Lipitor -) 40 mg PO HS [facility] Last Admin: 12/16/18 21:34 Dose: 40 mg Furosemide (Lasix -) 40 mg PO BIDLASIX [facility] Last Admin: 12/17/18 13:10 Dose: 40 mg Heparin Sodium (Porcine) (Heparin -) 5,000 unit SQ TID [facility] Last Admin: 12/17/18 13:10 Dose: 5,000 unit Azithromycin (Zithromax 500mg Ivpb (Pre-Docked)) 500 mg in 250 mls @ 250 mls/ hr IVPB DAILY [facility] Last Admin: 12/17/18 11:02 Dose: 250 mls/hr Insulin Aspart (Novolog Vial Sliding Scale -) 1 vial SQ ACHS [facility]; Protocol Last Admin: 12/17/18 12:11 Dose: 2 units Insulin Detemir (Levemir Vial) 36 units SQ HS [facility] Last Admin: 12/16/18 21:34 Dose: 36 units Insulin Detemir (Levemir Vial) 40 units SQ AM [facility] Last Admin: 12/17/18 06:19 Dose: 40 units Levothyroxine Sodium (Synthroid -) 150 mcg PO AM [facility] Last Admin: 12/17/18 06:20 Dose: 150 mcg Lidocaine (Lidoderm Patch -) 1 patch TP DAILY [facility] Last Admin: 12/17/18 09:17 Dose: 1 patch Losartan Potassium (Cozaar -) 50 mg PO DAILY [facility] Last Admin: 12/17/18 15:03 Dose: 50 mg Methylprednisolone Sodium Succinate (Solu-Medrol -) 60 mg IVPUSH Q8H [facility] Last Admin: 12/17/18 09:17 Dose: 60 mg Metoprolol Succinate (Toprol Xl -) 100 mg PO DAILY [facility] Last Admin: 12/17/18 09:18 Dose: 100 mg Miscellaneous (Lidoderm Patch Removal) 1 each MC DAILY@2200 [facility] Last Admin: 12/16/18 21:35 Dose: 1 each Pantoprazole Sodium (Protonix -) 40 mg PO DAILY [facility] Last Admin: 12/17/18 09:18 Dose: 40 mg - Objective Vital Signs: Vital Signs Temperature 98.3 F 12/17/18 14:00 Pulse Rate 79 12/17/18 14:00 Respiratory Rate 18 12/17/18 14:00 Blood Pressure 192/96 H 12/17/18 14:00 O2 Sat by Pulse Oximetry (%) 98 12/17/18 09:00 Constitutional: Yes: No Distress, Calm, Obese Eyes: Yes: Conjunctiva Clear HENT: Yes: Atraumatic Cardiovascular: Yes: Regular Rate and Rhythm Respiratory: Yes: Regular, Wheezes Gastrointestinal: Yes: Normal Bowel Sounds, Soft, Abdomen, Obese Musculoskeletal: Yes: WNL Extremities: Yes: WNL Edema: Yes Edema: LLE: Trace, RLE: Trace Neurological: Yes: Alert, Oriented Psychiatric: Yes: Alert, Oriented Labs: CBC, BMP 12/17/18 07:40 12/17/18 07:40 Microbiology 12/13/18 15:48 Blood - Peripheral Venous Blood Culture - Preliminary NO GROWTH OBTAINED AFTER 72 HOURS, INCUBATION TO CONTINUE FOR 2 DAYS. 12/13/18 15:48 Blood - Peripheral Venous Blood Culture - Preliminary NO GROWTH OBTAINED AFTER 72 HOURS, INCUBATION TO CONTINUE FOR 2 DAYS. 12/16/18 12:00 Urine For Antigen Detection Legionella Antigen - Final 12/16/18 12:00 Urine For Antigen Detection Streptococcus pneumoniae Antigen (M - Final 12/13/18 22:50 Sputum - Expectorated Gram Stain - Final 12/13/18 22:50 Sputum - Expectorated Sputum Culture - Final NORMAL RESPIRATORY [facility] Problem List - Problems (1) COPD (chronic obstructive pulmonary disease) Assessment/Plan: -Pulm on board -CXR shows findingd suspicious for RLL pneumonia -Bronchodiltors -keep SpO2 >90% -Bipap HS -IV Medrol~change to prednisone in AM Code(s): J44.9 - CHRONIC OBSTRUCTIVE PULMONARY DISEASE, UNSPECIFIED Qualifiers: COPD type: unspecified COPD Qualified Code(s): J44.9 - Chronic obstructive pulmonary disease, unspecified (2) Pneumonia Assessment/Plan: -Pulm on board -CXR shows findingd suspicious for RLL pneumonia -Bronchodiltors -keep SpO2 >90% -Bipap HS -IV Medrol~change to Prednisone in AM -Azithromycin -BC neg -Sputum Culture neg Code(s): J18.9 - PNEUMONIA, UNSPECIFIED ORGANISM Qualifiers: Pneumonia type: due to unspecified organism Lung location: unspecified part of lung (3) REBEKAH (acute kidney injury) Assessment/Plan: -BUN/Cr 67.2/2.7 -renal consult -monitor renal function Code(s): N17.9 - ACUTE KIDNEY FAILURE, UNSPECIFIED (4) CHF (congestive heart failure) Assessment/Plan: -Furosemide -daily weights -strict I&O -fluid restriction -Cardiology consult Code(s): I50.9 - HEART FAILURE, UNSPECIFIED (5) Diabetes mellitus Assessment/Plan: -[facility] -Levemir -HgA1c 8.8% -diabetic diet Code(s): E11.9 - TYPE 2 DIABETES MELLITUS WITHOUT COMPLICATIONS Qualifiers: Diabetes mellitus type: type 2 (6) HLD (hyperlipidemia) Assessment/Plan: -Atorvastatin Code(s): E78.5 - HYPERLIPIDEMIA, UNSPECIFIED (7) HTN (hypertension) Assessment/Plan: -Metoprolol -low Na diet -Cozaar added to BP regimen Code(s): I10 - ESSENTIAL (PRIMARY) HYPERTENSION (8) Hypothyroid Assessment/Plan: -Levothyroxine Code(s): E03.9 - HYPOTHYROIDISM, UNSPECIFIED Assessment/Plan see problem list dvt ppx can begin d/c planning when switch to PO Prednisone
[2018-12-17] MEDS ORDERED: INSULIN (LEVEMIR) 100 UNITS/ML UNITS SQ ONE (16:55)
--- NOTE | 2018-12-17 21:56 | PN ---
Progress Note (short form) - Note Progress Note: ID CONSULT DICTATED RLL PNEUMONIA EXACERBATION COPD AZOTEMIA AWAIT C/S EMPIRIC ZITHROMAX/ CEFTRIAXONE
[2018-12-17] MEDS: LIDOCAINE PATCH REMOVAL MC SCH (22:36)
[2018-12-17] MEDS: ATORVASTATIN CA 40 MG TABLET (FP) PO SCH (22:36)
[2018-12-18] MEDS ORDERED: INSULIN (NOVOLOG) ASPART 100 UNITS/ML 10ML VIAL ONE (06:05)
[2018-12-18] MEDS: INSULIN (LEVEMIR) 100 UNITS/ML UNITS SQ SCH ×2 (06:31→21:10)
[2018-12-18] MEDS: HEPARIN NA (PORCINE) 5,000 UNITS/ML 1ML VIAL SQ SCH ×3 (06:31→21:10)
[2018-12-18] MEDS: LEVOTHYROXINE NA 150 MCG TABLET PO SCH (06:32)
[2018-12-18] MEDS: INSULIN SLIDING SCALE (NOVOLOG) 1 VIAL SQ SCH ×4 (06:32→21:11)
[2018-12-18] MEDS: FUROSEMIDE 40 MG TABLET (FP) PO SCH ×2 (06:32→15:22)
[2018-12-18] MEDS ORDERED: INSULIN (LEVEMIR) 100 UNITS/ML UNITS SQ ONE (06:55)
[2018-12-18] MEDS: ALBUTEROL SO4 0.083% IH SOL 2.5 MG/3 ML VIAL.NEB. NEB SCH ×3 (07:45→21:00)
[2018-12-18] MEDS: methylPREDNISolone NA SUCC 40 MG/1 ML VIAL IVPUSH SCH ×2 (09:01→21:11)
[2018-12-18 09:11] LABS: ALBUMIN 2.7 g/dl (3.4-5.0); BILIRUBIN,TOTAL 0.3 mg/dL (0.2-1); BLOOD UREA NITROGEN 67.7 mg/dL (7-18); CALCIUM 8.2 mg/dL (8.5-10.1); CREATININE 2.7 mg/dL (0.55-1.3); POTASSIUM 4.4 mmol/L (3.5-5.1)
[2018-12-18] MEDS ORDERED: DEXTROSE 5%-WATER 100 ML IVPB ONE (10:12)
[2018-12-18] MEDS: LOSARTAN POTASSIUM 50 MG TABLET (FP) PO SCH (10:38)
[2018-12-18] MEDS: PANTOPRAZOLE 40 MG TABLET (FP) PO SCH (10:39)
[2018-12-18] MEDS: LIDOCAINE 5% TOPICAL PATCH TP SCH (10:41)
[2018-12-18] MEDS: CEFTRIAXONE 2 GM in DEXTROSE 5%-WATER 100 ML IVPB SCH (10:42)
--- NOTE | 2018-12-18 12:11 | PN ---
Progress Note, Physician Chief Complaint: COPD Pneumonia History of Present Illness: Previous notes and events reviewed awake and alert NAD denies SOB with exertion productive cough with white colored sputum - Current Medication List Current Medications: Active Medications Acetaminophen (Tylenol -) 650 mg PO Q6H PRN PRN Reason: PAIN Last Admin: 12/17/18 22:44 Dose: 650 mg Albuterol Sulfate (Ventolin 0.083% Nebulizer Soln -) 1 amp NEB RTID [facility] Last Admin: 12/18/18 07:45 Dose: 1 amp Albuterol/Ipratropium (Duoneb -) 1 amp NEB Q4H PRN PRN Reason: SHORTNESS OF BREATH Last Admin: 12/14/18 20:45 Dose: 1 amp Atorvastatin Calcium (Lipitor -) 40 mg PO HS [facility] Last Admin: 12/17/18 22:36 Dose: 40 mg Furosemide (Lasix -) 40 mg PO BIDLASIX [facility] Last Admin: 12/18/18 06:32 Dose: 40 mg Heparin Sodium (Porcine) (Heparin -) 5,000 unit SQ TID [facility] Last Admin: 12/18/18 06:31 Dose: 5,000 unit Azithromycin (Zithromax 500mg Ivpb (Pre-Docked)) 500 mg in 250 mls @ 250 mls/ hr IVPB DAILY [facility] Last Admin: 12/17/18 11:02 Dose: 250 mls/hr Ceftriaxone Sodium 2 gm/ (Dextrose) 100 mls @ 100 mls/hr IVPB DAILY [facility]; Protocol Last Admin: 12/18/18 10:42 Dose: 100 mls/hr Insulin Aspart (Novolog Vial Sliding Scale -) 1 vial SQ ACHS [facility]; Protocol Last Admin: 12/18/18 06:32 Dose: Not Given Insulin Detemir (Levemir Vial) 36 units SQ HS [facility] Last Admin: 12/17/18 21:30 Dose: 36 units Insulin Detemir (Levemir Vial) 40 units SQ AM [facility] Last Admin: 12/18/18 06:31 Dose: 40 units Levothyroxine Sodium (Synthroid -) 150 mcg PO AM [facility] Last Admin: 12/18/18 06:32 Dose: 150 mcg Lidocaine (Lidoderm Patch -) 1 patch TP DAILY [facility] Last Admin: 12/18/18 10:41 Dose: 1 patch Losartan Potassium (Cozaar -) 50 mg PO DAILY [facility] Last Admin: 12/18/18 10:38 Dose: 50 mg Methylprednisolone Sodium Succinate (Solu-Medrol -) 60 mg IVPUSH Q8H [facility] Last Admin: 12/18/18 09:01 Dose: 60 mg Metoprolol Succinate (Toprol Xl -) 100 mg PO DAILY [facility] Last Admin: 12/18/18 10:39 Dose: 100 mg Miscellaneous (Lidoderm Patch Removal) 1 each MC DAILY@2200 [facility] Last Admin: 12/17/18 22:36 Dose: Not Given Pantoprazole Sodium (Protonix -) 40 mg PO DAILY [facility] Last Admin: 12/18/18 10:39 Dose: 40 mg - Objective Vital Signs: Vital Signs Temperature 98.4 F 12/18/18 06:40 Pulse Rate 74 12/18/18 06:40 Respiratory Rate 20 12/18/18 06:40 Blood Pressure 181/95 H 12/18/18 06:40 O2 Sat by Pulse Oximetry (%) 98 12/17/18 09:00 Constitutional: Yes: No Distress, Calm, Obese Eyes: Yes: Conjunctiva Clear HENT: Yes: Atraumatic Cardiovascular: Yes: Regular Rate and Rhythm Respiratory: Yes: Regular, Diminished, On Nasal O2 Gastrointestinal: Yes: Normal Bowel Sounds, Soft, Abdomen, Obese Musculoskeletal: Yes: WNL Extremities: Yes: WNL Edema: No Neurological: Yes: Alert, Oriented Psychiatric: Yes: Alert, Oriented Labs: CBC, BMP 12/17/18 07:40 12/18/18 08:00 Microbiology 12/13/18 15:48 Blood - Peripheral Venous Blood Culture - Preliminary NO GROWTH OBTAINED AFTER 96 HOURS, INCUBATION TO CONTINUE FOR 1 DAYS. 12/13/18 15:48 Blood - Peripheral Venous Blood Culture - Preliminary NO GROWTH OBTAINED AFTER 96 HOURS, INCUBATION TO CONTINUE FOR 1 DAYS. 12/16/18 12:00 Urine For Antigen Detection Legionella Antigen - Final 12/16/18 12:00 Urine For Antigen Detection Streptococcus pneumoniae Antigen (M - Final 12/13/18 22:50 Sputum - Expectorated Gram Stain - Final 12/13/18 22:50 Sputum - Expectorated Sputum Culture - Final NORMAL RESPIRATORY [facility] Problem List - Problems (1) COPD (chronic obstructive pulmonary disease) Assessment/Plan: -Pulm on board -CXR shows finding suspicious for RLL pneumonia -Bronchodiltors -keep SpO2 >90% -Bipap HS -IV Medrol~change to prednisone in AM Code(s): J44.9 - CHRONIC OBSTRUCTIVE PULMONARY DISEASE, UNSPECIFIED Qualifiers: COPD type: unspecified COPD Qualified Code(s): J44.9 - Chronic obstructive pulmonary disease, unspecified (2) Pneumonia Assessment/Plan: -Pulm on board -CXR shows findingd suspicious for RLL pneumonia -Bronchodiltors -keep SpO2 >90% -Bipap HS -IV Medrol~change to Prednisone in AM -Azithromycin, Ceftriaxone -BC neg -Sputum Culture neg Code(s): J18.9 - PNEUMONIA, UNSPECIFIED ORGANISM Qualifiers: Pneumonia type: due to unspecified organism Lung location: unspecified part of lung (3) REBEKAH (acute kidney injury) Assessment/Plan: -BUN/Cr 67.7/2.7 -renal consult -monitor renal function Code(s): N17.9 - ACUTE KIDNEY FAILURE, UNSPECIFIED (4) CHF (congestive heart failure) Assessment/Plan: -Furosemide -daily weights -strict I&O -fluid restriction -Cardiology consult Code(s): I50.9 - HEART FAILURE, UNSPECIFIED (5) Diabetes mellitus Assessment/Plan: -[facility] -Levemir -HgA1c 8.8% -diabetic diet Code(s): E11.9 - TYPE 2 DIABETES MELLITUS WITHOUT COMPLICATIONS Qualifiers: Diabetes mellitus type: type 2 (6) HLD (hyperlipidemia) Assessment/Plan: -Atorvastatin Code(s): E78.5 - HYPERLIPIDEMIA, UNSPECIFIED (7) HTN (hypertension) Assessment/Plan: -Metoprolol -low Na diet -Cozaar Code(s): I10 - ESSENTIAL (PRIMARY) HYPERTENSION (8) Hypothyroid Assessment/Plan: -Levothyroxine Code(s): E03.9 - HYPOTHYROIDISM, UNSPECIFIED Assessment/Plan see problem list dvt ppx can begin d/c planning when switch to PO Prednisone and PO antibiotics
[2018-12-18] MEDS: AZITHROMYCIN IVPB 500 MG/250 ML BAG IVPB SCH (12:57)
--- NOTE | 2018-12-18 13:43 | PN ---
Progress Note, Physician History of Present Illness: Pt seen and examined at bedside. She is awake and alert. She still has cough. - Current Medication List Current Medications: Active Medications Acetaminophen (Tylenol -) 650 mg PO Q6H PRN PRN Reason: PAIN Last Admin: 12/17/18 22:44 Dose: 650 mg Albuterol Sulfate (Ventolin 0.083% Nebulizer Soln -) 1 amp NEB RTID [facility] Last Admin: 12/18/18 07:45 Dose: 1 amp Albuterol/Ipratropium (Duoneb -) 1 amp NEB Q4H PRN PRN Reason: SHORTNESS OF BREATH Last Admin: 12/14/18 20:45 Dose: 1 amp Atorvastatin Calcium (Lipitor -) 40 mg PO HS [facility] Last Admin: 12/17/18 22:36 Dose: 40 mg Furosemide (Lasix -) 40 mg PO BIDLASIX [facility] Last Admin: 12/18/18 06:32 Dose: 40 mg Heparin Sodium (Porcine) (Heparin -) 5,000 unit SQ TID [facility] Last Admin: 12/18/18 06:31 Dose: 5,000 unit Azithromycin (Zithromax 500mg Ivpb (Pre-Docked)) 500 mg in 250 mls @ 250 mls/ hr IVPB DAILY [facility] Last Admin: 12/18/18 12:57 Dose: 250 mls/hr Ceftriaxone Sodium 2 gm/ (Dextrose) 100 mls @ 100 mls/hr IVPB DAILY [facility]; Protocol Last Admin: 12/18/18 10:42 Dose: 100 mls/hr Insulin Aspart (Novolog Vial Sliding Scale -) 1 vial SQ ACHS [facility]; Protocol Last Admin: 12/18/18 13:00 Dose: 4 units Insulin Detemir (Levemir Vial) 36 units SQ HS [facility] Last Admin: 12/17/18 21:30 Dose: 36 units Insulin Detemir (Levemir Vial) 40 units SQ AM [facility] Last Admin: 12/18/18 06:31 Dose: 40 units Levothyroxine Sodium (Synthroid -) 150 mcg PO AM [facility] Last Admin: 12/18/18 06:32 Dose: 150 mcg Lidocaine (Lidoderm Patch -) 1 patch TP DAILY [facility] Last Admin: 12/18/18 10:41 Dose: 1 patch Losartan Potassium (Cozaar -) 50 mg PO DAILY [facility] Last Admin: 12/18/18 10:38 Dose: 50 mg Methylprednisolone Sodium Succinate (Solu-Medrol -) 60 mg IVPUSH Q8H [facility] Last Admin: 12/18/18 09:01 Dose: 60 mg Metoprolol Succinate (Toprol Xl -) 100 mg PO DAILY [facility] Last Admin: 12/18/18 10:39 Dose: 100 mg Miscellaneous (Lidoderm Patch Removal) 1 each MC DAILY@2200 [facility] Last Admin: 12/17/18 22:36 Dose: Not Given Pantoprazole Sodium (Protonix -) 40 mg PO DAILY [facility] Last Admin: 12/18/18 10:39 Dose: 40 mg - Objective Vital Signs: Vital Signs Temperature 98.4 F 12/18/18 11:00 Pulse Rate 76 12/18/18 11:00 Respiratory Rate 18 12/18/18 09:00 Blood Pressure 121/60 12/18/18 11:00 O2 Sat by Pulse Oximetry (%) 98 12/17/18 09:00 Constitutional: Yes: Calm Eyes: Yes: Conjunctiva Clear HENT: Yes: Atraumatic Neck: Yes: Supple Cardiovascular: Yes: S1, S2 Respiratory: Yes: Wheezes Gastrointestinal: Yes: Soft, Abdomen, Obese Genitourinary: Yes: WNL Musculoskeletal: Yes: WNL Edema: Yes Edema: LLE: Trace, RLE: Trace Neurological: Yes: Oriented Psychiatric: Yes: Oriented Labs: CBC, BMP 12/17/18 07:40 12/18/18 08:00 Problem List - Problems (1) COPD (chronic obstructive pulmonary disease) Code(s): J44.9 - CHRONIC OBSTRUCTIVE PULMONARY DISEASE, UNSPECIFIED Qualifiers: COPD type: unspecified COPD Qualified Code(s): J44.9 - Chronic obstructive pulmonary disease, unspecified (2) Pneumonia Code(s): J18.9 - PNEUMONIA, UNSPECIFIED ORGANISM Qualifiers: Pneumonia type: due to unspecified organism Lung location: unspecified part of lung (3) REBEKAH (acute kidney injury) Code(s): N17.9 - ACUTE KIDNEY FAILURE, UNSPECIFIED (4) BMI 50.0-59.9, adult Code(s): Z68.43 - BODY MASS INDEX (BMI) 50.0-59.9, ADULT (5) CHF (congestive heart failure) Code(s): I50.9 - HEART FAILURE, UNSPECIFIED (6) CKD (chronic kidney disease) Code(s): N18.9 - CHRONIC KIDNEY DISEASE, UNSPECIFIED Assessment/Plan Current Medications Generic Name Dose Route Start Last Admin Trade Name Freq PRN Reason Stop Dose Admin Acetaminophen 650 mg 12/14/18 08:00 12/17/18 22:44 Tylenol - PO 650 mg Q6H PRN Administration PAIN Albuterol Sulfate 1 amp 12/16/18 14:00 12/18/18 07:45 Ventolin 0.083% Nebulizer Soln - NEB 1 amp RTID [facility] Administration Albuterol/Ipratropium 1 amp 12/13/18 20:00 12/14/18 20:45 Duoneb - NEB 1 amp Q4H PRN Administration SHORTNESS OF BREATH Atorvastatin Calcium 40 mg 12/13/18 22:00 12/17/18 22:36 Lipitor - PO 40 mg HS [facility] Administration Furosemide 40 mg 12/14/18 06:00 12/18/18 06:32 Lasix - PO 40 mg BIDLASIX [facility] Administration Heparin Sodium (Porcine) 5,000 unit 12/13/18 22:00 12/18/18 06:31 Heparin - SQ 5,000 unit TID [facility] Administration Azithromycin 500 mg in 250 mls @ 250 mls/hr 12/14/18 10:00 12/18/18 12:57 Zithromax 500mg Ivpb (Pre-Docked) IVPB 250 mls/hr DAILY [facility] Administration Ceftriaxone Sodium 2 gm/ 100 mls @ 100 mls/hr 12/18/18 10:00 12/18/18 10:42 Dextrose IVPB 100 mls/hr DAILY [facility] Administration Protocol Insulin Aspart 1 vial 12/13/18 22:00 12/18/18 13:00 Novolog Vial Sliding Scale - SQ 4 units ACHS [facility] Administration Protocol Insulin Detemir 36 units 12/13/18 22:00 12/17/18 21:30 Levemir Vial SQ 36 units HS [facility] Administration Insulin Detemir 40 units 12/14/18 07:00 12/18/18 06:31 Levemir Vial SQ 40 units AM [facility] Administration Levothyroxine Sodium 150 mcg 12/14/18 07:00 12/18/18 06:32 Synthroid - PO 150 mcg AM [facility] Administration Lidocaine 1 patch 12/13/18 21:00 12/18/18 10:41 Lidoderm Patch - TP 1 patch DAILY [facility] Administration Losartan Potassium 50 mg 12/17/18 14:30 12/18/18 10:38 Cozaar - PO 50 mg DAILY [facility] Administration Methylprednisolone Sodium Succinate 60 mg 12/14/18 08:00 12/18/18 09:01 Solu-Medrol - IVPUSH 60 mg Q8H [facility] Administration Metoprolol Succinate 100 mg 12/14/18 10:00 12/18/18 10:39 Toprol Xl - PO 100 mg DAILY [facility] Administration Miscellaneous 1 each 12/13/18 22:00 12/17/18 22:36 Lidoderm Patch Removal MC Not Given DAILY@2200 [facility] Pantoprazole Sodium 40 mg 12/15/18 10:00 12/18/18 10:39 Protonix - PO 40 mg DAILY [facility] Administration Impression 1. CKD 2. REBEKAH 3. morbid obesity 4. hx of bariatric surgery 5. DM 6. HTN 7. hypothyroidism 8. ovarian cyst 9. PNA Plan - cont lasix - cont losartan - monitor bp - monitor renal function - avoid nsaids - avoid nephrotoxins - will trend creatinine - steroids with taper as tolerated
--- NOTE | 2018-12-18 15:12 | PN ---
Progress Note (short form) - Note Progress Note: PULMONARY Reports a nonproductive cough. No fevers or chills. Vital Signs Period Temp Pulse Resp BP Sys/Falcon Pulse Ox Last 24 Hr 97.6 F-98.7 F 73-93 18-20 121-181/58-95 Gen: NAD at rest Heart: RRR Lung: decreased breath sounds at the bases Abd: soft, nontender Ext: no edema CBC, BMP 12/17/18 07:40 12/18/18 08:00 Active Medications Acetaminophen (Tylenol -) 650 mg PO Q6H PRN PRN Reason: PAIN Last Admin: 12/17/18 22:44 Dose: 650 mg Albuterol Sulfate (Ventolin 0.083% Nebulizer Soln -) 1 amp NEB RTID [facility] Last Admin: 12/18/18 14:20 Dose: 1 amp Albuterol/Ipratropium (Duoneb -) 1 amp NEB Q4H PRN PRN Reason: SHORTNESS OF BREATH Last Admin: 12/14/18 20:45 Dose: 1 amp Atorvastatin Calcium (Lipitor -) 40 mg PO HS [facility] Last Admin: 12/17/18 22:36 Dose: 40 mg Furosemide (Lasix -) 40 mg PO BIDLASIX [facility] Last Admin: 12/18/18 06:32 Dose: 40 mg Guaifenesin (Robitussin -) 10 ml PO Q8H PRN PRN Reason: COUGH Heparin Sodium (Porcine) (Heparin -) 5,000 unit SQ TID [facility] Last Admin: 12/18/18 06:31 Dose: 5,000 unit Azithromycin (Zithromax 500mg Ivpb (Pre-Docked)) 500 mg in 250 mls @ 250 mls/ hr IVPB DAILY [facility] Last Admin: 12/18/18 12:57 Dose: 250 mls/hr Ceftriaxone Sodium 2 gm/ (Dextrose) 100 mls @ 100 mls/hr IVPB DAILY [facility]; Protocol Last Admin: 12/18/18 10:42 Dose: 100 mls/hr Insulin Aspart (Novolog Vial Sliding Scale -) 1 vial SQ ACHS [facility]; Protocol Last Admin: 12/18/18 13:00 Dose: 4 units Insulin Detemir (Levemir Vial) 36 units SQ HS [facility] Last Admin: 12/17/18 21:30 Dose: 36 units Insulin Detemir (Levemir Vial) 40 units SQ AM [facility] Last Admin: 12/18/18 06:31 Dose: 40 units Levothyroxine Sodium (Synthroid -) 150 mcg PO AM [facility] Last Admin: 12/18/18 06:32 Dose: 150 mcg Lidocaine (Lidoderm Patch -) 1 patch TP DAILY [facility] Last Admin: 12/18/18 10:41 Dose: 1 patch Losartan Potassium (Cozaar -) 50 mg PO DAILY [facility] Last Admin: 12/18/18 10:38 Dose: 50 mg Methylprednisolone Sodium Succinate (Solu-Medrol -) 60 mg IVPUSH Q8H [facility] Last Admin: 12/18/18 09:01 Dose: 60 mg Metoprolol Succinate (Toprol Xl -) 100 mg PO DAILY [facility] Last Admin: 12/18/18 10:39 Dose: 100 mg Miscellaneous (Lidoderm Patch Removal) 1 each MC DAILY@2200 [facility] Last Admin: 12/17/18 22:36 Dose: Not Given Pantoprazole Sodium (Protonix -) 40 mg PO DAILY [facility] Last Admin: 12/18/18 10:39 Dose: 40 mg A/P Pneumonia Sepsis Acute on Chronic Renal Failure HTN DM Hypothyroidism Morbid Obesity - continue antibiotics - taper off steroids - inhaled bronchodilators as needed - O2 to keep SpO2 >90% - DVT prophylaxis
[2018-12-18] MEDS: ACETAMINOPHEN 325 MG TABLET (FP) PO PRN (16:22)
[2018-12-18] MEDS: guaiFENesin 200 MG/10 ML 10 ML UNIT-DOSE CUPS PO PRN (16:23)
[2018-12-18] MEDS: ATORVASTATIN CA 40 MG TABLET (FP) PO SCH (22:12)
[2018-12-18] MEDS: LIDOCAINE PATCH REMOVAL MC SCH (22:12)
--- NOTE | 2018-12-19 00:33 | CONS ---
DATE OF CONSULTATION: 12/17/2018 INFECTIOUS DISEASE CONSULTATION HISTORY OF PRESENT ILLNESS: The patient is a 48-year-old morbidly obese female with a history of COPD evaluated for pneumonia. She was admitted to the hospital on December 13, 2018, with worsening shortness of breath and cough. She had reported increasing shortness of breath as well as cough productive of whitish sputum. She contacted her primary care physician and was prescribed an oral antibiotic, however she did not take the prescribed medication. She presented to the emergency room, where chest x-rays showed a right lower lobe infiltrate. She was empirically treated with ceftriaxone and doxycycline. She is presently on ceftriaxone and Zithromax. Patient reports improvement in her respiratory status. She does seem slightly short of breath at rest on nasal cannula and continues to have cough productive of whitish sputum. She denies any chest thomas or hemoptysis. She denies tobacco use, no ill contacts, no recent travel. She was hospitalized in November of this year for congestive heart failure . PAST MEDICAL HISTORY: Positive for morbid obesity, COPD, obstructive sleep apnea, and insulin dependent diabetes mellitus, hypertension, chronic kidney disease, hypothyroidism. PAST SURGICAL HISTORY: Status post bariatric surgery. ALLERGIES: No known allergies. MEDICATION: Include Lipitor, Zyrtec, hydrochlorothiazide, Humalog, Synthroid, Prinivil, Lopressor. SOCIAL HISTORY: She lives at home in the community. She is a nonsmoker, occasional ETOH. SYSTEMS REVIEW: Neurologic: No loss of consciousness, seizure activity, focal weakness. Cardiac: Negative for chest pain or palpitations. Respiratory: As per HPI. Gastrointestinal: Negative vomiting or diarrhea. Genitourinary: Negative for urinary tract infection. LABORATORY DATA: White count 12.6, hematocrit 32.5, platelets 263, creatinine 2.7, sputum normal sondra, urine legionella antigen negative. PHYSICAL EXAMINATION: General: On exam, she is awake and alert, she is slightly short of breath at rest. Vital signs: Temperature 98.4, blood pressure 151/75, pulse 73 regular, respirations 20 per minute. HEENT: Sclerae anicteric. Cardiovascular: Heart sounds S1, S2. Lungs: Diminished breath sounds bilaterally. Abdomen: Obese, soft, nontender. Extremities: 1+ edema. IMPRESSION: 1. Community acquired versus atypical right lower lobe pneumonia. 2. Acute exacerbation chronic obstructive pulmonary disease. 3. Azotemia. 4. Morbid obesity. Continue empiric antibiotic coverage of community acquired versus atypical pneumonia with ceftriaxone and Zithromax. Continue bronchodilators and intravenous corticosteroids. Thank you for the kind referral. DARLIN COUCH M.D. [id number]
[2018-12-19] MEDS: ACETAMINOPHEN 325 MG TABLET (FP) PO PRN ×3 (03:15→21:30)
[2018-12-19] MEDS: guaiFENesin 200 MG/10 ML 10 ML UNIT-DOSE CUPS PO PRN ×2 (05:44→14:38)
[2018-12-19] MEDS: FUROSEMIDE 40 MG TABLET (FP) PO SCH ×2 (05:44→14:38)
[2018-12-19] MEDS: HEPARIN NA (PORCINE) 5,000 UNITS/ML 1ML VIAL SQ SCH ×3 (05:45→21:24)
[2018-12-19] MEDS: INSULIN (LEVEMIR) 100 UNITS/ML UNITS SQ SCH ×2 (06:09→21:25)
[2018-12-19] MEDS: LEVOTHYROXINE NA 150 MCG TABLET PO SCH (06:09)
[2018-12-19] MEDS: INSULIN SLIDING SCALE (NOVOLOG) 1 VIAL SQ SCH ×4 (06:09→21:25)
[2018-12-19] MEDS ORDERED: LOSARTAN POTASSIUM 50 MG TABLET (FP) PO ONE (06:53)
[2018-12-19] MEDS ORDERED: AMMONIUM LACTATE 12% LOTION 225 GM BOTTLE TP PRN (07:23)
[2018-12-19] MEDS: ALBUTEROL SO4 0.083% IH SOL 2.5 MG/3 ML VIAL.NEB. NEB SCH ×3 (07:42→20:11)
--- NOTE | 2018-12-19 10:31 | PN ---
Progress Note, Physician Chief Complaint: COPD Pneumonia History of Present Illness: Previous notes and events reviewed awake and alert NAD sts her breathing is improving productive cough with white colored sputum - Current Medication List Current Medications: Active Medications Acetaminophen (Tylenol -) 650 mg PO Q6H PRN PRN Reason: PAIN Last Admin: 12/19/18 03:15 Dose: 650 mg Albuterol Sulfate (Ventolin 0.083% Nebulizer Soln -) 1 amp NEB RTID [facility] Last Admin: 12/19/18 07:42 Dose: 1 amp Albuterol/Ipratropium (Duoneb -) 1 amp NEB Q4H PRN PRN Reason: SHORTNESS OF BREATH Last Admin: 12/14/18 20:45 Dose: 1 amp Amlodipine Besylate (Norvasc -) 5 mg PO DAILY [facility] Atorvastatin Calcium (Lipitor -) 40 mg PO HS [facility] Last Admin: 12/18/18 22:12 Dose: 40 mg Furosemide (Lasix -) 40 mg PO BIDLASIX [facility] Last Admin: 12/19/18 05:44 Dose: 40 mg Guaifenesin (Robitussin -) 10 ml PO Q8H PRN PRN Reason: COUGH Last Admin: 12/19/18 05:44 Dose: 10 ml Heparin Sodium (Porcine) (Heparin -) 5,000 unit SQ TID [facility] Last Admin: 12/19/18 05:45 Dose: 5,000 unit Azithromycin (Zithromax 500mg Ivpb (Pre-Docked)) 500 mg in 250 mls @ 250 mls/ hr IVPB DAILY [facility] Last Admin: 12/18/18 12:57 Dose: 250 mls/hr Ceftriaxone Sodium 2 gm/ (Dextrose) 100 mls @ 100 mls/hr IVPB DAILY [facility]; Protocol Last Admin: 12/18/18 10:42 Dose: 100 mls/hr Insulin Aspart (Novolog Vial Sliding Scale -) 1 vial SQ ACHS [facility]; Protocol Last Admin: 12/19/18 06:09 Dose: Not Given Insulin Detemir (Levemir Vial) 36 units SQ HS [facility] Last Admin: 12/18/18 21:10 Dose: 36 units Insulin Detemir (Levemir Vial) 40 units SQ AM [facility] Last Admin: 12/19/18 06:09 Dose: 40 units Lactic Acid (Lac-Hydrin 12) 1 applic TP DAILY PRN PRN Reason: DRY SKIN Levothyroxine Sodium (Synthroid -) 150 mcg PO AM [facility] Last Admin: 12/19/18 06:09 Dose: 150 mcg Lidocaine (Lidoderm Patch -) 1 patch TP DAILY [facility] Last Admin: 12/18/18 10:41 Dose: 1 patch Losartan Potassium (Cozaar -) 50 mg PO DAILY [facility] Last Admin: 12/18/18 10:38 Dose: 50 mg Methylprednisolone Sodium Succinate (Solu-Medrol -) 40 mg IVPUSH Q12H [facility] Last Admin: 12/18/18 21:11 Dose: 40 mg Metoprolol Succinate (Toprol Xl -) 100 mg PO DAILY [facility] Last Admin: 12/18/18 10:39 Dose: 100 mg Miscellaneous (Lidoderm Patch Removal) 1 each MC DAILY@2200 [facility] Last Admin: 12/18/18 22:12 Dose: Not Given Pantoprazole Sodium (Protonix -) 40 mg PO DAILY [facility] Last Admin: 12/18/18 10:39 Dose: 40 mg - Objective Vital Signs: Vital Signs Temperature 98.2 F 12/19/18 09:10 Pulse Rate 80 12/19/18 09:10 Respiratory Rate 18 12/19/18 09:10 Blood Pressure 124/79 12/19/18 09:10 O2 Sat by Pulse Oximetry (%) 99 12/19/18 07:41 Constitutional: Yes: No Distress, Calm Eyes: Yes: Conjunctiva Clear HENT: Yes: Atraumatic Cardiovascular: Yes: Regular Rate and Rhythm Respiratory: Yes: Regular, On Nasal O2, Wheezes Gastrointestinal: Yes: Normal Bowel Sounds, Soft, Abdomen, Obese Musculoskeletal: Yes: WNL Extremities: Yes: WNL Edema: LLE: Trace, RLE: Trace Neurological: Yes: Alert, Oriented Psychiatric: Yes: Alert, Oriented Labs: CBC, BMP 12/17/18 07:40 12/18/18 08:00 Microbiology 12/13/18 15:48 Blood - Peripheral Venous Blood Culture - Final NO GROWTH AFTER 5 DAYS INCUBATION 12/13/18 15:48 Blood - Peripheral Venous Blood Culture - Final NO GROWTH AFTER 5 DAYS INCUBATION 12/16/18 12:00 Urine For Antigen Detection Legionella Antigen - Final 12/16/18 12:00 Urine For Antigen Detection Streptococcus pneumoniae Antigen (M - Final 12/13/18 22:50 Sputum - Expectorated Gram Stain - Final 12/13/18 22:50 Sputum - Expectorated Sputum Culture - Final NORMAL RESPIRATORY AMAYA Problem List - Problems (1) COPD (chronic obstructive pulmonary disease) Assessment/Plan: -Pulm on board -CXR shows finding suspicious for RLL pneumonia -Bronchodiltors -keep SpO2 >90% -Bipap HS -IV Medrol Code(s): J44.9 - CHRONIC OBSTRUCTIVE PULMONARY DISEASE, UNSPECIFIED Qualifiers: COPD type: unspecified COPD Qualified Code(s): J44.9 - Chronic obstructive pulmonary disease, unspecified (2) Pneumonia Assessment/Plan: -Pulm on board -CXR shows findingd suspicious for RLL pneumonia -Bronchodiltors -keep SpO2 >90% -Bipap HS -IV Medrol -Azithromycin, Ceftriaxone -BC neg -Sputum Culture neg -Urine Legionella neg Code(s): J18.9 - PNEUMONIA, UNSPECIFIED ORGANISM Qualifiers: Pneumonia type: due to unspecified organism Lung location: unspecified part of lung (3) REBEKAH (acute kidney injury) Assessment/Plan: -BUN/Cr 67.7/2.7 -renal consult -monitor renal function Code(s): N17.9 - ACUTE KIDNEY FAILURE, UNSPECIFIED (4) CHF (congestive heart failure) Assessment/Plan: -Furosemide -daily weights -strict I&O -fluid restriction -Cardiology consult Code(s): I50.9 - HEART FAILURE, UNSPECIFIED (5) Diabetes mellitus Assessment/Plan: -[facility] -Levemir -HgA1c 8.8% -diabetic diet Code(s): E11.9 - TYPE 2 DIABETES MELLITUS WITHOUT COMPLICATIONS Qualifiers: Diabetes mellitus type: type 2 (6) HLD (hyperlipidemia) Assessment/Plan: -Atorvastatin Code(s): E78.5 - HYPERLIPIDEMIA, UNSPECIFIED (7) HTN (hypertension) Assessment/Plan: -Metoprolol -low Na diet -Cozaar, Amlodipine Code(s): I10 - ESSENTIAL (PRIMARY) HYPERTENSION (8) Hypothyroid Assessment/Plan: -Levothyroxine Code(s): E03.9 - HYPOTHYROIDISM, UNSPECIFIED Assessment/Plan see problem list dvt ppx can begin d/c planning when switch to PO Prednisone and PO antibiotics
[2018-12-19] MEDS ORDERED: DEXTROSE 5%-WATER 100 ML IVPB ONE (11:15)
[2018-12-19] MEDS: PANTOPRAZOLE 40 MG TABLET (FP) PO SCH (11:23)
[2018-12-19] MEDS: LOSARTAN POTASSIUM 50 MG TABLET (FP) PO SCH (11:24)
[2018-12-19] MEDS: amLODIPine BESYLATE 5 MG TABLET (FP) PO SCH (11:24)
[2018-12-19] MEDS: methylPREDNISolone NA SUCC 40 MG/1 ML VIAL IVPUSH SCH ×2 (11:27→21:30)
[2018-12-19] MEDS: AZITHROMYCIN IVPB 500 MG/250 ML BAG IVPB SCH (11:28)
[2018-12-19] MEDS: LIDOCAINE 5% TOPICAL PATCH TP SCH (11:29)
[2018-12-19] MEDS: CEFTRIAXONE 2 GM in DEXTROSE 5%-WATER 100 ML IVPB SCH (11:30)
[2018-12-19 11:55] LABS: BILIRUBIN,TOTAL 0.2 mg/dL (0.2-1); BLOOD UREA NITROGEN 69.7 mg/dL (7-18); CALCIUM 8.1 mg/dL (8.5-10.1); CREATININE 2.6 mg/dL (0.55-1.3); MAGNESIUM 2.2 mg/dL (1.8-2.4); PHOSPHOROUS 4.7 mg/dL (2.5-4.9); POTASSIUM 4.1 mmol/L (3.5-5.1); TOT PROT 7.2 g/dl (6.4-8.2)
--- NOTE | 2018-12-19 13:18 | PN ---
Progress Note (short form) - Note Progress Note: PULMONARY States breathing continues to improve. Still with nonproductive cough. No fevers or chills. Vital Signs Period Temp Pulse Resp BP Sys/Falcon Pulse Ox Last 24 Hr 98 F-98.6 F 68-80 18-20 124-186/79-98 99-100 Gen: NAD at rest Heart: RRR Lung: decreased breath sounds at the bases Abd: soft, nontender Ext: no edema CBC, BMP 12/17/18 07:40 12/19/18 10:33 Active Medications Acetaminophen (Tylenol -) 650 mg PO Q6H PRN PRN Reason: PAIN Last Admin: 12/19/18 11:24 Dose: 650 mg Albuterol Sulfate (Ventolin 0.083% Nebulizer Soln -) 1 amp NEB RTID [facility] Last Admin: 12/19/18 07:42 Dose: 1 amp Albuterol/Ipratropium (Duoneb -) 1 amp NEB Q4H PRN PRN Reason: SHORTNESS OF BREATH Last Admin: 12/14/18 20:45 Dose: 1 amp Amlodipine Besylate (Norvasc -) 5 mg PO DAILY [facility] Last Admin: 12/19/18 11:24 Dose: 5 mg Atorvastatin Calcium (Lipitor -) 40 mg PO HS [facility] Last Admin: 12/18/18 22:12 Dose: 40 mg Furosemide (Lasix -) 40 mg PO BIDLASIX [facility] Last Admin: 12/19/18 05:44 Dose: 40 mg Guaifenesin (Robitussin -) 10 ml PO Q8H PRN PRN Reason: COUGH Last Admin: 12/19/18 05:44 Dose: 10 ml Heparin Sodium (Porcine) (Heparin -) 5,000 unit SQ TID [facility] Last Admin: 12/19/18 05:45 Dose: 5,000 unit Azithromycin (Zithromax 500mg Ivpb (Pre-Docked)) 500 mg in 250 mls @ 250 mls/ hr IVPB DAILY [facility] Last Admin: 12/19/18 11:28 Dose: 250 mls/hr Ceftriaxone Sodium 2 gm/ (Dextrose) 100 mls @ 100 mls/hr IVPB DAILY [facility]; Protocol Last Admin: 12/19/18 11:30 Dose: 100 mls/hr Insulin Aspart (Novolog Vial Sliding Scale -) 1 vial SQ ACHS [facility]; Protocol Last Admin: 12/19/18 11:22 Dose: 2 units Insulin Detemir (Levemir Vial) 36 units SQ HS [facility] Last Admin: 12/18/18 21:10 Dose: 36 units Insulin Detemir (Levemir Vial) 40 units SQ AM [facility] Last Admin: 12/19/18 06:09 Dose: 40 units Lactic Acid (Lac-Hydrin 12) 1 applic TP DAILY PRN PRN Reason: DRY SKIN Levothyroxine Sodium (Synthroid -) 150 mcg PO AM [facility] Last Admin: 12/19/18 06:09 Dose: 150 mcg Lidocaine (Lidoderm Patch -) 1 patch TP DAILY [facility] Last Admin: 12/19/18 11:29 Dose: 1 patch Losartan Potassium (Cozaar -) 50 mg PO DAILY [facility] Last Admin: 12/19/18 11:24 Dose: 50 mg Methylprednisolone Sodium Succinate (Solu-Medrol -) 40 mg IVPUSH Q12H [facility] Last Admin: 12/19/18 11:27 Dose: 40 mg Metoprolol Succinate (Toprol Xl -) 100 mg PO DAILY [facility] Last Admin: 12/19/18 11:23 Dose: 100 mg Miscellaneous (Lidoderm Patch Removal) 1 each MC DAILY@2200 [facility] Last Admin: 12/18/18 22:12 Dose: Not Given Pantoprazole Sodium (Protonix -) 40 mg PO DAILY [facility] Last Admin: 12/19/18 11:23 Dose: 40 mg A/P Pneumonia Sepsis Acute on Chronic Renal Failure HTN DM Hypothyroidism Morbid Obesity - continue antibiotics - taper off steroids, can likely change to PO prednisone 40mg daily in AM - inhaled bronchodilators as needed - O2 to keep SpO2 >90% - DVT prophylaxis
--- NOTE | 2018-12-19 15:49 | PN ---
Progress Note, Physician History of Present Illness: Pt seen and examined at bedside. She is awake and alert. She denies shortness of breath however she still has a cough. - Current Medication List Current Medications: Active Medications Acetaminophen (Tylenol -) 650 mg PO Q6H PRN PRN Reason: PAIN Last Admin: 12/19/18 11:24 Dose: 650 mg Albuterol Sulfate (Ventolin 0.083% Nebulizer Soln -) 1 amp NEB RTID [facility] Last Admin: 12/19/18 07:42 Dose: 1 amp Albuterol/Ipratropium (Duoneb -) 1 amp NEB Q4H PRN PRN Reason: SHORTNESS OF BREATH Last Admin: 12/14/18 20:45 Dose: 1 amp Amlodipine Besylate (Norvasc -) 5 mg PO DAILY [facility] Last Admin: 12/19/18 11:24 Dose: 5 mg Atorvastatin Calcium (Lipitor -) 40 mg PO HS [facility] Last Admin: 12/18/18 22:12 Dose: 40 mg Furosemide (Lasix -) 40 mg PO BIDLASIX [facility] Last Admin: 12/19/18 14:38 Dose: 40 mg Guaifenesin (Robitussin -) 10 ml PO Q8H PRN PRN Reason: COUGH Last Admin: 12/19/18 14:38 Dose: 10 ml Heparin Sodium (Porcine) (Heparin -) 5,000 unit SQ TID [facility] Last Admin: 12/19/18 14:38 Dose: 5,000 unit Azithromycin (Zithromax 500mg Ivpb (Pre-Docked)) 500 mg in 250 mls @ 250 mls/ hr IVPB DAILY [facility] Last Admin: 12/19/18 11:28 Dose: 250 mls/hr Ceftriaxone Sodium 2 gm/ (Dextrose) 100 mls @ 100 mls/hr IVPB DAILY [facility]; Protocol Last Admin: 12/19/18 11:30 Dose: 100 mls/hr Insulin Aspart (Novolog Vial Sliding Scale -) 1 vial SQ ACHS [facility]; Protocol Last Admin: 12/19/18 11:22 Dose: 2 units Insulin Detemir (Levemir Vial) 36 units SQ HS [facility] Last Admin: 12/18/18 21:10 Dose: 36 units Insulin Detemir (Levemir Vial) 40 units SQ AM [facility] Last Admin: 12/19/18 06:09 Dose: 40 units Lactic Acid (Lac-Hydrin 12) 1 applic TP DAILY PRN PRN Reason: DRY SKIN Levothyroxine Sodium (Synthroid -) 150 mcg PO AM [facility] Last Admin: 12/19/18 06:09 Dose: 150 mcg Lidocaine (Lidoderm Patch -) 1 patch TP DAILY [facility] Last Admin: 12/19/18 11:29 Dose: 1 patch Losartan Potassium (Cozaar -) 50 mg PO DAILY [facility] Last Admin: 12/19/18 11:24 Dose: 50 mg Methylprednisolone Sodium Succinate (Solu-Medrol -) 40 mg IVPUSH Q12H [facility] Last Admin: 12/19/18 11:27 Dose: 40 mg Metoprolol Succinate (Toprol Xl -) 100 mg PO DAILY [facility] Last Admin: 12/19/18 11:23 Dose: 100 mg Miscellaneous (Lidoderm Patch Removal) 1 each MC DAILY@2200 [facility] Last Admin: 12/18/18 22:12 Dose: Not Given Pantoprazole Sodium (Protonix -) 40 mg PO DAILY [facility] Last Admin: 12/19/18 11:23 Dose: 40 mg - Objective Vital Signs: Vital Signs Temperature 98.5 F 12/19/18 14:00 Pulse Rate 78 12/19/18 14:00 Respiratory Rate 18 12/19/18 14:00 Blood Pressure 152/96 12/19/18 14:00 O2 Sat by Pulse Oximetry (%) 99 12/19/18 07:41 Constitutional: Yes: Calm Eyes: Yes: Conjunctiva Clear HENT: Yes: Atraumatic Neck: Yes: Supple Cardiovascular: Yes: S1, S2 Respiratory: Yes: CTA Bilaterally, On Nasal O2 Gastrointestinal: Yes: Soft Genitourinary: Yes: WNL Musculoskeletal: Yes: WNL Edema: Yes Edema: LLE: Trace, RLE: Trace Neurological: Yes: Oriented Psychiatric: Yes: Oriented Labs: CBC, BMP 12/17/18 07:40 12/19/18 10:33 Problem List - Problems (1) COPD (chronic obstructive pulmonary disease) Code(s): J44.9 - CHRONIC OBSTRUCTIVE PULMONARY DISEASE, UNSPECIFIED Qualifiers: COPD type: unspecified COPD Qualified Code(s): J44.9 - Chronic obstructive pulmonary disease, unspecified (2) Pneumonia Code(s): J18.9 - PNEUMONIA, UNSPECIFIED ORGANISM Qualifiers: Pneumonia type: due to unspecified organism Lung location: unspecified part of lung (3) REBEKAH (acute kidney injury) Code(s): N17.9 - ACUTE KIDNEY FAILURE, UNSPECIFIED (4) BMI 50.0-59.9, adult Code(s): Z68.43 - BODY MASS INDEX (BMI) 50.0-59.9, ADULT (5) CHF (congestive heart failure) Code(s): I50.9 - HEART FAILURE, UNSPECIFIED (6) CKD (chronic kidney disease) Code(s): N18.9 - CHRONIC KIDNEY DISEASE, UNSPECIFIED Assessment/Plan Current Medications Generic Name Dose Route Start Last Admin Trade Name Freq PRN Reason Stop Dose Admin Acetaminophen 650 mg 12/14/18 08:00 12/19/18 11:24 Tylenol - PO 650 mg Q6H PRN Administration PAIN Albuterol Sulfate 1 amp 12/16/18 14:00 12/19/18 07:42 Ventolin 0.083% Nebulizer Soln - NEB 1 amp RTID [facility] Administration Albuterol/Ipratropium 1 amp 12/13/18 20:00 12/14/18 20:45 Duoneb - NEB 1 amp Q4H PRN Administration SHORTNESS OF BREATH Amlodipine Besylate 5 mg 12/19/18 10:00 12/19/18 11:24 Norvasc - PO 5 mg DAILY [facility] Administration Atorvastatin Calcium 40 mg 12/13/18 22:00 12/18/18 22:12 Lipitor - PO 40 mg HS [facility] Administration Furosemide 40 mg 12/14/18 06:00 12/19/18 14:38 Lasix - PO 40 mg BIDLASIX [facility] Administration Guaifenesin 10 ml 12/18/18 13:42 12/19/18 14:38 Robitussin - PO 10 ml Q8H PRN Administration COUGH Heparin Sodium (Porcine) 5,000 unit 12/13/18 22:00 12/19/18 14:38 Heparin - SQ 5,000 unit TID [facility] Administration Azithromycin 500 mg in 250 mls @ 250 mls/hr 12/14/18 10:00 12/19/18 11:28 Zithromax 500mg Ivpb (Pre-Docked) IVPB 250 mls/hr DAILY [facility] Administration Ceftriaxone Sodium 2 gm/ 100 mls @ 100 mls/hr 12/18/18 10:00 12/19/18 11:30 Dextrose IVPB 100 mls/hr DAILY [facility] Administration Protocol Insulin Aspart 1 vial 12/13/18 22:00 12/19/18 11:22 Novolog Vial Sliding Scale - SQ 2 units ACHS [facility] Administration Protocol Insulin Detemir 36 units 12/13/18 22:00 12/18/18 21:10 Levemir Vial SQ 36 units HS [facility] Administration Insulin Detemir 40 units 12/14/18 07:00 12/19/18 06:09 Levemir Vial SQ 40 units AM [facility] Administration Lactic Acid 1 applic 12/19/18 07:23 Lac-Hydrin 12 TP DAILY PRN DRY SKIN Levothyroxine Sodium 150 mcg 12/14/18 07:00 12/19/18 06:09 Synthroid - PO 150 mcg AM [facility] Administration Lidocaine 1 patch 12/13/18 21:00 12/19/18 11:29 Lidoderm Patch - TP 1 patch DAILY [facility] Administration Losartan Potassium 50 mg 12/17/18 14:30 12/19/18 11:24 Cozaar - PO 50 mg DAILY [facility] Administration Methylprednisolone Sodium Succinate 40 mg 12/18/18 22:00 12/19/18 11:27 Solu-Medrol - IVPUSH 40 mg Q12H [facility] Administration Metoprolol Succinate 100 mg 12/14/18 10:00 12/19/18 11:23 Toprol Xl - PO 100 mg DAILY [facility] Administration Miscellaneous 1 each 12/13/18 22:00 12/18/18 22:12 Lidoderm Patch Removal MC Not Given DAILY@2200 [facility] Pantoprazole Sodium 40 mg 12/15/18 10:00 12/19/18 11:23 Protonix - PO 40 mg DAILY [facility] Administration Impression 1. CKD 2. REBEKAH 3. morbid obesity 4. hx of bariatric surgery 5. DM 6. HTN 7. hypothyroidism 8. ovarian cyst 9. PNA Plan - monitor renal function - cont with arb - monitor potassium - avoid nsaids - avoid nephrotoxins - steroids with taper as tolerated
[2018-12-19] MEDS ORDERED: INSULIN (NOVOLOG) ASPART 100 UNITS/ML 10ML VIAL ONE (19:13)
[2018-12-19] MEDS: ATORVASTATIN CA 40 MG TABLET (FP) PO SCH (21:24)
[2018-12-19] MEDS: LIDOCAINE PATCH REMOVAL MC SCH (21:25)
[2018-12-20] MEDS: ACETAMINOPHEN 325 MG TABLET (FP) PO PRN ×3 (03:59→21:42)
[2018-12-20] MEDS: HEPARIN NA (PORCINE) 5,000 UNITS/ML 1ML VIAL SQ SCH ×3 (06:01→21:41)
[2018-12-20] MEDS: FUROSEMIDE 40 MG TABLET (FP) PO SCH ×2 (06:01→14:11)
[2018-12-20] MEDS: INSULIN SLIDING SCALE (NOVOLOG) 1 VIAL SQ SCH ×4 (06:04→21:33)
[2018-12-20] MEDS: INSULIN (LEVEMIR) 100 UNITS/ML UNITS SQ SCH ×2 (06:05→21:41)
[2018-12-20] MEDS: LEVOTHYROXINE NA 150 MCG TABLET PO SCH ×2 (06:05→06:19)
[2018-12-20] MEDS: ALBUTEROL SO4 0.083% IH SOL 2.5 MG/3 ML VIAL.NEB. NEB SCH ×3 (07:30→20:18)
--- NOTE | 2018-12-20 09:05 | PN ---
Progress Note, Physician Chief Complaint: COPD Pneumonia History of Present Illness: Previous notes and events reviewed awake and alert NAD complain of productive cough sts having intermittent chest pain~EKG ordered - Current Medication List Current Medications: Active Medications Acetaminophen (Tylenol -) 650 mg PO Q6H PRN PRN Reason: PAIN Last Admin: 12/20/18 03:59 Dose: 650 mg Albuterol Sulfate (Ventolin 0.083% Nebulizer Soln -) 1 amp NEB RTID [facility] Last Admin: 12/20/18 07:30 Dose: 1 amp Albuterol/Ipratropium (Duoneb -) 1 amp NEB Q4H PRN PRN Reason: SHORTNESS OF BREATH Last Admin: 12/14/18 20:45 Dose: 1 amp Amlodipine Besylate (Norvasc -) 5 mg PO DAILY [facility] Last Admin: 12/19/18 11:24 Dose: 5 mg Atorvastatin Calcium (Lipitor -) 40 mg PO HS [facility] Last Admin: 12/19/18 21:24 Dose: 40 mg Furosemide (Lasix -) 40 mg PO BIDLASIX [facility] Last Admin: 12/20/18 06:01 Dose: 40 mg Guaifenesin (Robitussin -) 10 ml PO Q8H PRN PRN Reason: COUGH Last Admin: 12/19/18 14:38 Dose: 10 ml Heparin Sodium (Porcine) (Heparin -) 5,000 unit SQ TID [facility] Last Admin: 12/20/18 06:01 Dose: 5,000 unit Azithromycin (Zithromax 500mg Ivpb (Pre-Docked)) 500 mg in 250 mls @ 250 mls/ hr IVPB DAILY [facility] Last Admin: 12/19/18 11:28 Dose: 250 mls/hr Ceftriaxone Sodium 2 gm/ (Dextrose) 100 mls @ 100 mls/hr IVPB DAILY [facility]; Protocol Last Admin: 12/19/18 11:30 Dose: 100 mls/hr Insulin Aspart (Novolog Vial Sliding Scale -) 1 vial SQ ACHS [facility]; Protocol Last Admin: 12/20/18 06:04 Dose: 2 units Insulin Detemir (Levemir Vial) 36 units SQ HS [facility] Last Admin: 12/19/18 21:25 Dose: 36 units Insulin Detemir (Levemir Vial) 40 units SQ AM [facility] Last Admin: 12/20/18 06:05 Dose: 40 units Lactic Acid (Lac-Hydrin 12) 1 applic TP DAILY PRN PRN Reason: DRY SKIN Levothyroxine Sodium (Synthroid -) 150 mcg PO AM [facility] Last Admin: 12/20/18 06:19 Dose: Not Given Lidocaine (Lidoderm Patch -) 1 patch TP DAILY [facility] Last Admin: 12/19/18 11:29 Dose: 1 patch Losartan Potassium (Cozaar -) 50 mg PO DAILY [facility] Last Admin: 12/19/18 11:24 Dose: 50 mg Methylprednisolone Sodium Succinate (Solu-Medrol -) 40 mg IVPUSH Q12H [facility] Last Admin: 12/19/18 21:30 Dose: 40 mg Metoprolol Succinate (Toprol Xl -) 100 mg PO DAILY [facility] Last Admin: 12/19/18 11:23 Dose: 100 mg Miscellaneous (Lidoderm Patch Removal) 1 each MC DAILY@2200 [facility] Last Admin: 12/19/18 21:25 Dose: Not Given Pantoprazole Sodium (Protonix -) 40 mg PO DAILY [facility] Last Admin: 12/19/18 11:23 Dose: 40 mg - Objective Vital Signs: Vital Signs Temperature 98.1 F 12/20/18 06:34 Pulse Rate 77 12/20/18 06:34 Respiratory Rate 20 12/20/18 06:34 Blood Pressure 165/93 12/20/18 06:34 O2 Sat by Pulse Oximetry (%) 99 12/20/18 07:57 Constitutional: Yes: No Distress, Calm Eyes: Yes: Conjunctiva Clear HENT: Yes: Atraumatic Cardiovascular: Yes: Regular Rate and Rhythm Respiratory: Yes: Regular, On Nasal O2, Wheezes Gastrointestinal: Yes: Normal Bowel Sounds, Soft, Abdomen, Obese Musculoskeletal: Yes: WNL Extremities: Yes: WNL Edema: No Neurological: Yes: Alert, Oriented Psychiatric: Yes: Alert, Oriented Labs: CBC, BMP 12/17/18 07:40 12/19/18 10:33 Microbiology 12/13/18 15:48 Blood - Peripheral Venous Blood Culture - Final NO GROWTH AFTER 5 DAYS INCUBATION 12/13/18 15:48 Blood - Peripheral Venous Blood Culture - Final NO GROWTH AFTER 5 DAYS INCUBATION 12/16/18 12:00 Urine For Antigen Detection Legionella Antigen - Final 12/16/18 12:00 Urine For Antigen Detection Streptococcus pneumoniae Antigen (M - Final 12/13/18 22:50 Sputum - Expectorated Gram Stain - Final 12/13/18 22:50 Sputum - Expectorated Sputum Culture - Final NORMAL RESPIRATORY AMAYA Problem List - Problems (1) COPD (chronic obstructive pulmonary disease) Assessment/Plan: -Pulm on board -CXR shows finding suspicious for RLL pneumonia -Bronchodiltors -keep SpO2 >90% -Bipap HS -IV Medrol Code(s): J44.9 - CHRONIC OBSTRUCTIVE PULMONARY DISEASE, UNSPECIFIED Qualifiers: COPD type: unspecified COPD Qualified Code(s): J44.9 - Chronic obstructive pulmonary disease, unspecified (2) Pneumonia Assessment/Plan: -Pulm on board -CXR shows findingd suspicious for RLL pneumonia -Bronchodiltors -keep SpO2 >90% -Bipap HS -IV Medrol -Azithromycin, Ceftriaxone -BC neg -Sputum Culture neg -Urine Legionella neg -Robitussin Code(s): J18.9 - PNEUMONIA, UNSPECIFIED ORGANISM Qualifiers: Pneumonia type: due to unspecified organism Lung location: unspecified part of lung (3) REBEKAH (acute kidney injury) Assessment/Plan: -BUN/Cr 69.7/2.6 -renal on board -monitor renal function Code(s): N17.9 - ACUTE KIDNEY FAILURE, UNSPECIFIED (4) CHF (congestive heart failure) Assessment/Plan: -Furosemide -daily weights -strict I&O -fluid restriction -Cardiology consult Code(s): I50.9 - HEART FAILURE, UNSPECIFIED (5) Diabetes mellitus Assessment/Plan: -[facility] -Levemir -HgA1c 8.8% -diabetic diet Code(s): E11.9 - TYPE 2 DIABETES MELLITUS WITHOUT COMPLICATIONS Qualifiers: Diabetes mellitus type: type 2 (6) HLD (hyperlipidemia) Assessment/Plan: -Atorvastatin Code(s): E78.5 - HYPERLIPIDEMIA, UNSPECIFIED (7) HTN (hypertension) Assessment/Plan: -Metoprolol -low Na diet -Cozaar, Amlodipine Code(s): I10 - ESSENTIAL (PRIMARY) HYPERTENSION (8) Hypothyroid Assessment/Plan: -Levothyroxine Code(s): E03.9 - HYPOTHYROIDISM, UNSPECIFIED Assessment/Plan see problem list dvt ppx can begin d/c planning when switch to PO Prednisone and PO antibiotics
[2018-12-20] MEDS ORDERED: DEXTROSE 5%-WATER 100 ML IVPB ONE ×2 (10:05→10:23)
[2018-12-20] MEDS: methylPREDNISolone NA SUCC 40 MG/1 ML VIAL IVPUSH SCH ×2 (10:21→21:41)
[2018-12-20] MEDS: LOSARTAN POTASSIUM 50 MG TABLET (FP) PO SCH (10:21)
[2018-12-20] MEDS: amLODIPine BESYLATE 5 MG TABLET (FP) PO SCH (10:21)
[2018-12-20] MEDS: PANTOPRAZOLE 40 MG TABLET (FP) PO SCH (10:21)
[2018-12-20] MEDS: CEFTRIAXONE 2 GM in DEXTROSE 5%-WATER 100 ML IVPB SCH (10:22)
[2018-12-20] MEDS: AZITHROMYCIN IVPB 500 MG/250 ML BAG IVPB SCH (10:24)
[2018-12-20] MEDS: LIDOCAINE 5% TOPICAL PATCH TP SCH (10:25)
[2018-12-20 11:09] LABS: HEMATOCRIT 33.2 % (32.4-45.2); HEMOGLOBIN 10.7 GM/dL (10.7-15.3); MCH 28.7 pg (25.7-33.7); MCHC 32.3 g/dl (32.0-36.0); MEAN CELL VOLUME 88.8 fl (80-96); MEAN PLT VOLUME 10.2 fl (7.5-11.1); PLATELET COUNT 257 K/MM3 (134-434); RBC 3.74 M/mm3 (3.60-5.2); RDW 15.1 % (11.6-15.6); WHITE BLOOD COUNT 12.2 K/mm3 (4.0-10.0)
[2018-12-20 11:35] LABS: ALBUMIN 2.8 g/dl (3.4-5.0); BILIRUBIN,TOTAL 0.2 mg/dL (0.2-1); CALCIUM 8.3 mg/dL (8.5-10.1); CREATININE 2.5 mg/dL (0.55-1.3); POTASSIUM 4.7 mmol/L (3.5-5.1); TOT PROT 6.8 g/dl (6.4-8.2)
[2018-12-20] MEDS ORDERED: INSULIN (NOVOLOG) ASPART 100 UNITS/ML 10ML VIAL ONE ×3 (12:15→21:08)
--- NOTE | 2018-12-20 13:21 | EKG ---
Test Reason : Blood Pressure : / mmHG Vent. Rate : 072 BPM Atrial Rate : 072 BPM P-R Int : 142 ms QRS Dur : 090 ms QT Int : 408 ms P-R-T Axes : 059 -01 040 degrees QTc Int : 446 ms NORMAL SINUS RHYTHM POSSIBLE LEFT ATRIAL ENLARGEMENT NONSPECIFIC ST ABNORMALITY ABNORMAL ECG Confirmed by DARLIN THOMPSON MD ([id number]) on 12/20/2018 1:20:46 PM Referred By: Confirmed By:DARLIN THOMPSON MD
--- NOTE | 2018-12-20 13:46 | PN ---
Progress Note, Physician History of Present Illness: PULMONARY ALERT,COMFORTABLE AT REST,+SIMEON - Current Medication List Current Medications: Active Medications Acetaminophen (Tylenol -) 650 mg PO Q6H PRN PRN Reason: PAIN Last Admin: 12/20/18 03:59 Dose: 650 mg Albuterol Sulfate (Ventolin 0.083% Nebulizer Soln -) 1 amp NEB RTID [facility] Last Admin: 12/20/18 07:30 Dose: 1 amp Albuterol/Ipratropium (Duoneb -) 1 amp NEB Q4H PRN PRN Reason: SHORTNESS OF BREATH Last Admin: 12/14/18 20:45 Dose: 1 amp Amlodipine Besylate (Norvasc -) 5 mg PO DAILY [facility] Last Admin: 12/20/18 10:21 Dose: 5 mg Atorvastatin Calcium (Lipitor -) 40 mg PO HS [facility] Last Admin: 12/19/18 21:24 Dose: 40 mg Furosemide (Lasix -) 40 mg PO BIDLASIX [facility] Last Admin: 12/20/18 06:01 Dose: 40 mg Guaifenesin (Robitussin -) 10 ml PO Q8H PRN PRN Reason: COUGH Last Admin: 12/19/18 14:38 Dose: 10 ml Heparin Sodium (Porcine) (Heparin -) 5,000 unit SQ TID [facility] Last Admin: 12/20/18 06:01 Dose: 5,000 unit Azithromycin (Zithromax 500mg Ivpb (Pre-Docked)) 500 mg in 250 mls @ 250 mls/ hr IVPB DAILY [facility] Last Admin: 12/20/18 10:24 Dose: 250 mls/hr Ceftriaxone Sodium 2 gm/ (Dextrose) 100 mls @ 100 mls/hr IVPB DAILY [facility]; Protocol Last Admin: 12/20/18 10:22 Dose: 100 mls/hr Insulin Aspart (Novolog Vial Sliding Scale -) 1 vial SQ ACHS [facility]; Protocol Last Admin: 12/20/18 12:04 Dose: 2 units Insulin Detemir (Levemir Vial) 36 units SQ HS [facility] Last Admin: 12/19/18 21:25 Dose: 36 units Insulin Detemir (Levemir Vial) 40 units SQ AM [facility] Last Admin: 12/20/18 06:05 Dose: 40 units Lactic Acid (Lac-Hydrin 12) 1 applic TP DAILY PRN PRN Reason: DRY SKIN Levothyroxine Sodium (Synthroid -) 150 mcg PO AM [facility] Last Admin: 12/20/18 06:19 Dose: Not Given Lidocaine (Lidoderm Patch -) 1 patch TP DAILY [facility] Last Admin: 12/20/18 10:25 Dose: 1 patch Losartan Potassium (Cozaar -) 50 mg PO DAILY [facility] Last Admin: 12/20/18 10:21 Dose: 50 mg Methylprednisolone Sodium Succinate (Solu-Medrol -) 40 mg IVPUSH Q12H [facility] Last Admin: 12/20/18 10:21 Dose: 40 mg Metoprolol Succinate (Toprol Xl -) 100 mg PO DAILY [facility] Last Admin: 12/20/18 10:21 Dose: 100 mg Miscellaneous (Lidoderm Patch Removal) 1 each MC DAILY@2200 [facility] Last Admin: 12/19/18 21:25 Dose: Not Given Pantoprazole Sodium (Protonix -) 40 mg PO DAILY [facility] Last Admin: 12/20/18 10:21 Dose: 40 mg - Objective Vital Signs: Vital Signs Temperature 98 F 12/20/18 10:00 Pulse Rate 76 12/20/18 10:00 Respiratory Rate 20 12/20/18 10:00 Blood Pressure 179/94 H 12/20/18 10:00 O2 Sat by Pulse Oximetry (%) 100 12/20/18 09:00 Constitutional: Yes: Calm, Obese Eyes: Yes: WNL HENT: Yes: WNL Neck: Yes: WNL Cardiovascular: Yes: Regular Rate and Rhythm, S1, S2 Respiratory: Yes: Diminished Gastrointestinal: Yes: Normal Bowel Sounds, Soft Extremities: Yes: WNL Edema: Yes Labs: CBC, BMP 12/20/18 10:23 12/20/18 10:23 Assessment/Plan A/P Pneumonia Sepsis Acute on Chronic Renal Failure HTN DM Hypothyroidism Morbid Obesity FLORES - continue antibiotics - taper off steroids - inhaled bronchodilators as needed - O2 to keep SpO2 >90% - DVT prophylaxis - chest x-ray am - nippv at night DR OSUNA
--- NOTE | 2018-12-20 16:09 | PN ---
Progress Note, Physician History of Present Illness: Pt seen and examined at bedside. She is awake and alert. She complains of wheezing. - Current Medication List Current Medications: Active Medications Acetaminophen (Tylenol -) 650 mg PO Q6H PRN PRN Reason: PAIN Last Admin: 12/20/18 14:11 Dose: 650 mg Albuterol Sulfate (Ventolin 0.083% Nebulizer Soln -) 1 amp NEB RTID [facility] Last Admin: 12/20/18 15:05 Dose: 1 amp Albuterol/Ipratropium (Duoneb -) 1 amp NEB Q4H PRN PRN Reason: SHORTNESS OF BREATH Last Admin: 12/14/18 20:45 Dose: 1 amp Amlodipine Besylate (Norvasc -) 5 mg PO DAILY [facility] Last Admin: 12/20/18 10:21 Dose: 5 mg Atorvastatin Calcium (Lipitor -) 40 mg PO HS [facility] Last Admin: 12/19/18 21:24 Dose: 40 mg Furosemide (Lasix -) 40 mg PO BIDLASIX [facility] Last Admin: 12/20/18 14:11 Dose: 40 mg Guaifenesin (Robitussin -) 10 ml PO Q8H PRN PRN Reason: COUGH Last Admin: 12/19/18 14:38 Dose: 10 ml Heparin Sodium (Porcine) (Heparin -) 5,000 unit SQ TID [facility] Last Admin: 12/20/18 14:12 Dose: 5,000 unit Azithromycin (Zithromax 500mg Ivpb (Pre-Docked)) 500 mg in 250 mls @ 250 mls/ hr IVPB DAILY [facility] Last Admin: 12/20/18 10:24 Dose: 250 mls/hr Ceftriaxone Sodium 2 gm/ (Dextrose) 100 mls @ 100 mls/hr IVPB DAILY [facility]; Protocol Last Admin: 12/20/18 10:22 Dose: 100 mls/hr Insulin Aspart (Novolog Vial Sliding Scale -) 1 vial SQ ACHS [facility]; Protocol Last Admin: 12/20/18 12:04 Dose: 2 units Insulin Detemir (Levemir Vial) 36 units SQ HS [facility] Last Admin: 12/19/18 21:25 Dose: 36 units Insulin Detemir (Levemir Vial) 40 units SQ AM [facility] Last Admin: 12/20/18 06:05 Dose: 40 units Lactic Acid (Lac-Hydrin 12) 1 applic TP DAILY PRN PRN Reason: DRY SKIN Levothyroxine Sodium (Synthroid -) 150 mcg PO AM [facility] Last Admin: 12/20/18 06:19 Dose: Not Given Lidocaine (Lidoderm Patch -) 1 patch TP DAILY [facility] Last Admin: 12/20/18 10:25 Dose: 1 patch Losartan Potassium (Cozaar -) 50 mg PO DAILY [facility] Last Admin: 12/20/18 10:21 Dose: 50 mg Methylprednisolone Sodium Succinate (Solu-Medrol -) 40 mg IVPUSH Q12H [facility] Last Admin: 12/20/18 10:21 Dose: 40 mg Metoprolol Succinate (Toprol Xl -) 100 mg PO DAILY [facility] Last Admin: 12/20/18 10:21 Dose: 100 mg Miscellaneous (Lidoderm Patch Removal) 1 each MC DAILY@2200 [facility] Last Admin: 12/19/18 21:25 Dose: Not Given Pantoprazole Sodium (Protonix -) 40 mg PO DAILY [facility] Last Admin: 12/20/18 10:21 Dose: 40 mg - Objective Vital Signs: Vital Signs Temperature 97.8 F 12/20/18 14:00 Pulse Rate 70 12/20/18 14:00 Respiratory Rate 20 12/20/18 14:00 Blood Pressure 169/85 12/20/18 14:00 O2 Sat by Pulse Oximetry (%) 100 12/20/18 09:00 Constitutional: Yes: Calm Eyes: Yes: Conjunctiva Clear HENT: Yes: Atraumatic Neck: Yes: Supple Cardiovascular: Yes: S1, S2 Respiratory: Yes: Wheezes Gastrointestinal: Yes: Soft, Abdomen, Obese Genitourinary: Yes: WNL Edema: Yes Edema: LLE: Trace, RLE: Trace Neurological: Yes: Oriented Psychiatric: Yes: Oriented Labs: CBC, BMP 12/20/18 10:23 12/20/18 10:23 Problem List - Problems (1) COPD (chronic obstructive pulmonary disease) Code(s): J44.9 - CHRONIC OBSTRUCTIVE PULMONARY DISEASE, UNSPECIFIED Qualifiers: COPD type: unspecified COPD Qualified Code(s): J44.9 - Chronic obstructive pulmonary disease, unspecified (2) Pneumonia Code(s): J18.9 - PNEUMONIA, UNSPECIFIED ORGANISM Qualifiers: Pneumonia type: due to unspecified organism Lung location: unspecified part of lung (3) REBEKAH (acute kidney injury) Code(s): N17.9 - ACUTE KIDNEY FAILURE, UNSPECIFIED (4) BMI 50.0-59.9, adult Code(s): Z68.43 - BODY MASS INDEX (BMI) 50.0-59.9, ADULT (5) CHF (congestive heart failure) Code(s): I50.9 - HEART FAILURE, UNSPECIFIED (6) CKD (chronic kidney disease) Code(s): N18.9 - CHRONIC KIDNEY DISEASE, UNSPECIFIED Assessment/Plan Current Medications Generic Name Dose Route Start Last Admin Trade Name Freq PRN Reason Stop Dose Admin Acetaminophen 650 mg 12/14/18 08:00 12/20/18 14:11 Tylenol - PO 650 mg Q6H PRN Administration PAIN Albuterol Sulfate 1 amp 12/16/18 14:00 12/20/18 15:05 Ventolin 0.083% Nebulizer Soln - NEB 1 amp RTID [facility] Administration Albuterol/Ipratropium 1 amp 12/13/18 20:00 12/14/18 20:45 Duoneb - NEB 1 amp Q4H PRN Administration SHORTNESS OF BREATH Amlodipine Besylate 5 mg 12/19/18 10:00 12/20/18 10:21 Norvasc - PO 5 mg DAILY [facility] Administration Atorvastatin Calcium 40 mg 12/13/18 22:00 12/19/18 21:24 Lipitor - PO 40 mg HS [facility] Administration Furosemide 40 mg 12/14/18 06:00 12/20/18 14:11 Lasix - PO 40 mg BIDLASIX [facility] Administration Guaifenesin 10 ml 12/18/18 13:42 12/19/18 14:38 Robitussin - PO 10 ml Q8H PRN Administration COUGH Heparin Sodium (Porcine) 5,000 unit 12/13/18 22:00 12/20/18 14:12 Heparin - SQ 5,000 unit TID [facility] Administration Azithromycin 500 mg in 250 mls @ 250 mls/hr 12/14/18 10:00 12/20/18 10:24 Zithromax 500mg Ivpb (Pre-Docked) IVPB 250 mls/hr DAILY [facility] Administration Ceftriaxone Sodium 2 gm/ 100 mls @ 100 mls/hr 12/18/18 10:00 12/20/18 10:22 Dextrose IVPB 100 mls/hr DAILY [facility] Administration Protocol Insulin Aspart 1 vial 12/13/18 22:00 12/20/18 12:04 Novolog Vial Sliding Scale - SQ 2 units ACHS [facility] Administration Protocol Insulin Detemir 36 units 12/13/18 22:00 12/19/18 21:25 Levemir Vial SQ 36 units HS [facility] Administration Insulin Detemir 40 units 12/14/18 07:00 12/20/18 06:05 Levemir Vial SQ 40 units AM [facility] Administration Lactic Acid 1 applic 12/19/18 07:23 Lac-Hydrin 12 TP DAILY PRN DRY SKIN Levothyroxine Sodium 150 mcg 12/14/18 07:00 12/20/18 06:19 Synthroid - PO Not Given AM [facility] Lidocaine 1 patch 12/13/18 21:00 12/20/18 10:25 Lidoderm Patch - TP 1 patch DAILY [facility] Administration Losartan Potassium 50 mg 12/17/18 14:30 12/20/18 10:21 Cozaar - PO 50 mg DAILY [facility] Administration Methylprednisolone Sodium Succinate 40 mg 12/18/18 22:00 12/20/18 10:21 Solu-Medrol - IVPUSH 40 mg Q12H [facility] Administration Metoprolol Succinate 100 mg 12/14/18 10:00 12/20/18 10:21 Toprol Xl - PO 100 mg DAILY [facility] Administration Miscellaneous 1 each 12/13/18 22:00 12/19/18 21:25 Lidoderm Patch Removal MC Not Given DAILY@2200 [facility] Pantoprazole Sodium 40 mg 12/15/18 10:00 12/20/18 10:21 Protonix - PO 40 mg DAILY [facility] Administration Impression 1. CKD 2. REBEKAH 3. morbid obesity 4. hx of bariatric surgery 5. DM 6. HTN 7. hypothyroidism 8. ovarian cyst 9. PNA Plan - cont arb - check ua - low potassium diet - monitor bp - will titrate up the arb if potassium permits - avoid nsaids - avoid nephrotoxins - steroids with taper as tolerated
--- NOTE | 2018-12-20 17:20 | PN ---
Progress Note, Physician History of Present Illness: SEATED IN BED C/O DYSPNEA AT REST OCCASIONAL COUGH, WHITE SPUTUM NO C/O F/C SPUTUM C/S NORMAL AMAYA LEGIONELLA AG (-) - Current Medication List Current Medications: Active Medications Acetaminophen (Tylenol -) 650 mg PO Q6H PRN PRN Reason: PAIN Last Admin: 12/20/18 14:11 Dose: 650 mg Albuterol Sulfate (Ventolin 0.083% Nebulizer Soln -) 1 amp NEB RTID [facility] Last Admin: 12/20/18 15:05 Dose: 1 amp Albuterol/Ipratropium (Duoneb -) 1 amp NEB Q4H PRN PRN Reason: SHORTNESS OF BREATH Last Admin: 12/14/18 20:45 Dose: 1 amp Amlodipine Besylate (Norvasc -) 5 mg PO DAILY [facility] Last Admin: 12/20/18 10:21 Dose: 5 mg Atorvastatin Calcium (Lipitor -) 40 mg PO HS [facility] Last Admin: 12/19/18 21:24 Dose: 40 mg Furosemide (Lasix -) 40 mg PO BIDLASIX [facility] Last Admin: 12/20/18 14:11 Dose: 40 mg Guaifenesin (Robitussin -) 10 ml PO Q8H PRN PRN Reason: COUGH Last Admin: 12/19/18 14:38 Dose: 10 ml Heparin Sodium (Porcine) (Heparin -) 5,000 unit SQ TID [facility] Last Admin: 12/20/18 14:12 Dose: 5,000 unit Azithromycin (Zithromax 500mg Ivpb (Pre-Docked)) 500 mg in 250 mls @ 250 mls/ hr IVPB DAILY [facility] Last Admin: 12/20/18 10:24 Dose: 250 mls/hr Ceftriaxone Sodium 2 gm/ (Dextrose) 100 mls @ 100 mls/hr IVPB DAILY [facility]; Protocol Last Admin: 12/20/18 10:22 Dose: 100 mls/hr Insulin Aspart (Novolog Vial Sliding Scale -) 1 vial SQ ACHS [facility]; Protocol Last Admin: 12/20/18 16:53 Dose: 2 units Insulin Detemir (Levemir Vial) 36 units SQ HS [facility] Last Admin: 12/19/18 21:25 Dose: 36 units Insulin Detemir (Levemir Vial) 40 units SQ AM [facility] Last Admin: 12/20/18 06:05 Dose: 40 units Lactic Acid (Lac-Hydrin 12) 1 applic TP DAILY PRN PRN Reason: DRY SKIN Levothyroxine Sodium (Synthroid -) 150 mcg PO AM [facility] Last Admin: 12/20/18 06:19 Dose: Not Given Lidocaine (Lidoderm Patch -) 1 patch TP DAILY [facility] Last Admin: 12/20/18 10:25 Dose: 1 patch Losartan Potassium (Cozaar -) 50 mg PO DAILY [facility] Last Admin: 12/20/18 10:21 Dose: 50 mg Methylprednisolone Sodium Succinate (Solu-Medrol -) 40 mg IVPUSH Q12H [facility] Last Admin: 12/20/18 10:21 Dose: 40 mg Metoprolol Succinate (Toprol Xl -) 100 mg PO DAILY [facility] Last Admin: 12/20/18 10:21 Dose: 100 mg Miscellaneous (Lidoderm Patch Removal) 1 each MC DAILY@2200 [facility] Last Admin: 12/19/18 21:25 Dose: Not Given Pantoprazole Sodium (Protonix -) 40 mg PO DAILY [facility] Last Admin: 12/20/18 10:21 Dose: 40 mg - Objective Vital Signs: Vital Signs Temperature 97.8 F 12/20/18 14:00 Pulse Rate 70 12/20/18 14:00 Respiratory Rate 20 12/20/18 14:00 Blood Pressure 169/85 12/20/18 14:00 O2 Sat by Pulse Oximetry (%) 100 12/20/18 09:00 Constitutional: Yes: No Distress, Obese Eyes: Yes: Conjunctiva Clear Cardiovascular: Yes: Regular Rate and Rhythm, S1, S2 Respiratory: Yes: Diminished Gastrointestinal: Yes: Normal Bowel Sounds, Soft, Abdomen, Obese. No: Tenderness Edema: No Labs: CBC, BMP 12/20/18 10:23 12/20/18 10:23 Assessment/Plan PNEUMONIA EXACERBATION COPD LEUKOCYTOSIS AZOTEMIA REPEAT CXR CONTINUE ZITHROMAX/ CEFTRIAXONE
[2018-12-20 19:45] LABS: EPI CELLS 1.1 /HPF (0-5/HPF); HYALINE CASTS 2 /lpf (0-8); URINE APPEARANCE CLEAR; URINE BACTERIA 0.3 /hpf (NEGATIVE); URINE BILIRUBIN NEGATIVE (NEGATIVE); URINE COLOR YELLOW; URINE GLUCOSE (UA) TRACE (NEGATIVE); URINE KETONE NEGATIVE (NEGATIVE); URINE LEUK ESTERASE NEGATIVE (NEGATIVE); URINE NITRITE NEGATIVE (NEGATIVE); URINE PROTEIN 3+ (NEGATIVE); URINE RBC 7 /hpf (0-4); URINE UROBILINOGEN 0.2 mg/dL (0.2-1.0); URINE WBC 1 /hpf (0-5)
[2018-12-20] MEDS: ATORVASTATIN CA 40 MG TABLET (FP) PO SCH (21:41)
[2018-12-20] MEDS: LIDOCAINE PATCH REMOVAL MC SCH (21:42)
[2018-12-21] MEDS ORDERED: DEXTROSE 50%-WATER 25 GM/50 ML DISP.SYRIN ONE (01:15)
[2018-12-21] MEDS ORDERED: DEXTROSE 50%-WATER - 25 GM/50 ML VIAL IVPUSH ONE (01:38)
[2018-12-21] MEDS ORDERED: DEXTROSE 50%-WATER 25 GM/50 ML DISP.SYRIN IVPUSH ONE (01:45)
[2018-12-21] MEDS: INSULIN SLIDING SCALE (NOVOLOG) 1 VIAL SQ SCH ×4 (06:32→21:38)
[2018-12-21] MEDS: INSULIN (LEVEMIR) 100 UNITS/ML UNITS SQ SCH ×2 (06:33→21:40)
[2018-12-21] MEDS: FUROSEMIDE 40 MG TABLET (FP) PO SCH ×2 (06:34→13:10)
[2018-12-21] MEDS: LEVOTHYROXINE NA 150 MCG TABLET PO SCH (06:34)
[2018-12-21] MEDS: HEPARIN NA (PORCINE) 5,000 UNITS/ML 1ML VIAL SQ SCH ×3 (06:34→21:39)
[2018-12-21] MEDS ORDERED: hydrALAZINE HCL 25 MG TABLET (FP) PO ONE (06:52)
[2018-12-21] MEDS ORDERED: INSULIN (LEVEMIR) 100 UNITS/ML UNITS SQ ONE (06:58)
--- NOTE | 2018-12-21 07:29 | PN ---
Progress Note, Physician Chief Complaint: COPD Pneumonia History of Present Illness: NAD, feels better, has only been walking to the bathroom. CXR shows improvement in aeration - Current Medication List Current Medications: Active Medications Acetaminophen (Tylenol -) 650 mg PO Q6H PRN PRN Reason: PAIN Last Admin: 12/20/18 21:42 Dose: 650 mg Albuterol Sulfate (Ventolin 0.083% Nebulizer Soln -) 1 amp NEB RTID [facility] Last Admin: 12/20/18 20:18 Dose: 1 amp Albuterol/Ipratropium (Duoneb -) 1 amp NEB Q4H PRN PRN Reason: SHORTNESS OF BREATH Last Admin: 12/14/18 20:45 Dose: 1 amp Amlodipine Besylate (Norvasc -) 5 mg PO DAILY [facility] Last Admin: 12/20/18 10:21 Dose: 5 mg Atorvastatin Calcium (Lipitor -) 40 mg PO HS [facility] Last Admin: 12/20/18 21:41 Dose: 40 mg Furosemide (Lasix -) 40 mg PO BIDLASIX [facility] Last Admin: 12/21/18 06:34 Dose: 40 mg Guaifenesin (Robitussin -) 10 ml PO Q8H PRN PRN Reason: COUGH Last Admin: 12/19/18 14:38 Dose: 10 ml Heparin Sodium (Porcine) (Heparin -) 5,000 unit SQ TID [facility] Last Admin: 12/21/18 06:34 Dose: 5,000 unit Azithromycin (Zithromax 500mg Ivpb (Pre-Docked)) 500 mg in 250 mls @ 250 mls/ hr IVPB DAILY [facility] Last Admin: 12/20/18 10:24 Dose: 250 mls/hr Ceftriaxone Sodium 2 gm/ (Dextrose) 100 mls @ 100 mls/hr IVPB DAILY [facility]; Protocol Last Admin: 12/20/18 10:22 Dose: 100 mls/hr Insulin Aspart (Novolog Vial Sliding Scale -) 1 vial SQ ACHS [facility]; Protocol Last Admin: 12/21/18 06:32 Dose: Not Given Insulin Detemir (Levemir Vial) 36 units SQ HS [facility] Last Admin: 12/20/18 21:41 Dose: 36 units Insulin Detemir (Levemir Vial) 40 units SQ AM [facility] Last Admin: 12/21/18 06:33 Dose: 40 units Lactic Acid (Lac-Hydrin 12) 1 applic TP DAILY PRN PRN Reason: DRY SKIN Levothyroxine Sodium (Synthroid -) 150 mcg PO AM [facility] Last Admin: 12/21/18 06:34 Dose: 150 mcg Lidocaine (Lidoderm Patch -) 1 patch TP DAILY [facility] Last Admin: 12/20/18 10:25 Dose: 1 patch Losartan Potassium (Cozaar -) 50 mg PO DAILY [facility] Last Admin: 12/20/18 10:21 Dose: 50 mg Methylprednisolone Sodium Succinate (Solu-Medrol -) 40 mg IVPUSH Q12H [facility] Last Admin: 12/20/18 21:41 Dose: 40 mg Metoprolol Succinate (Toprol Xl -) 100 mg PO DAILY [facility] Last Admin: 12/20/18 10:21 Dose: 100 mg Miscellaneous (Lidoderm Patch Removal) 1 each MC DAILY@2200 [facility] Last Admin: 12/20/18 21:42 Dose: Not Given Pantoprazole Sodium (Protonix -) 40 mg PO DAILY [facility] Last Admin: 12/20/18 10:21 Dose: 40 mg - Objective Vital Signs: Vital Signs Temperature 98.5 F 12/21/18 06:00 Pulse Rate 68 12/21/18 06:00 Respiratory Rate 20 12/21/18 06:00 Blood Pressure 185/99 H 12/21/18 06:00 O2 Sat by Pulse Oximetry (%) 99 12/21/18 00:05 Constitutional: Yes: Well Nourished, No Distress, Calm, Obese Cardiovascular: Yes: Regular Rate and Rhythm Respiratory: Yes: Regular, On Nasal O2, SOB on Exertion Gastrointestinal: Yes: WNL, Normal Bowel Sounds, Soft, Abdomen, Obese Genitourinary: Yes: WNL Musculoskeletal: Yes: Muscle Weakness Extremities: Yes: WNL Edema: No Peripheral Pulses WNL: Yes Neurological: Yes: Alert, Oriented Psychiatric: Yes: Alert, Oriented Labs: CBC, BMP 12/20/18 10:23 12/20/18 10:23 Assessment/Plan (1) COPD (chronic obstructive pulmonary disease) Assessment/Plan: -Pulm on board -CXR shows finding suspicious for RLL pneumonia -Bronchodiltors -keep SpO2 >90% -Bipap HS -IV Medrol Code(s): J44.9 - CHRONIC OBSTRUCTIVE PULMONARY DISEASE, UNSPECIFIED Qualifiers: COPD type: unspecified COPD Qualified Code(s): J44.9 - Chronic obstructive pulmonary disease, unspecified (2) Pneumonia Assessment/Plan: -Pulm on board -CXR shows findingd suspicious for RLL pneumonia -Bronchodiltors -keep SpO2 >90%, has home oxygen already -Bipap HS -IV Medrol -Azithromycin, Ceftriaxone -BC neg -Sputum Culture neg -Urine Legionella neg -Robitussin Code(s): J18.9 - PNEUMONIA, UNSPECIFIED ORGANISM Qualifiers: Pneumonia type: due to unspecified organism Lung location: unspecified part of lung (3) REBEKAH (acute kidney injury) Assessment/Plan: -BUN/Cr 69.7/2.6 -renal on board -monitor renal function Code(s): N17.9 - ACUTE KIDNEY FAILURE, UNSPECIFIED (4) CHF (congestive heart failure) Assessment/Plan: -Furosemide -daily weights -strict I&O -fluid restriction -Cardiology consult Code(s): I50.9 - HEART FAILURE, UNSPECIFIED (5) Diabetes mellitus Assessment/Plan: -[facility] -[facility] -Levemir -HgA1c 8.8% -diabetic diet Code(s): E11.9 - TYPE 2 DIABETES MELLITUS WITHOUT COMPLICATIONS Qualifiers: Diabetes mellitus type: type 2 (6) HLD (hyperlipidemia) Assessment/Plan: -Atorvastatin Code(s): E78.5 - HYPERLIPIDEMIA, UNSPECIFIED (7) HTN (hypertension) Assessment/Plan: -Metoprolol -low Na diet -Cozaar, Amlodipine Code(s): I10 - ESSENTIAL (PRIMARY) HYPERTENSION (8) Hypothyroid Assessment/Plan: -Levothyroxine Code(s): E03.9 - HYPOTHYROIDISM, UNSPECIFIED Assessment/Plan see problem list dvt ppx Encouraged ambulation in the hallway Physical therapy Pt already uses Home O2 can begin d/c planning when switch to PO Prednisone and PO antibiotics
[2018-12-21] MEDS: ALBUTEROL SO4 0.083% IH SOL 2.5 MG/3 ML VIAL.NEB. NEB SCH ×3 (07:45→20:10)
[2018-12-21] MEDS ORDERED: DEXTROSE 5%-WATER 100 ML IVPB ONE (08:30)
[2018-12-21 08:41] LABS: HEMATOCRIT 33.4 % (32.4-45.2); HEMOGLOBIN 11.1 GM/dL (10.7-15.3); MCHC 33.1 g/dl (32.0-36.0); MEAN CELL VOLUME 87.7 fl (80-96); MEAN PLT VOLUME 9.8 fl (7.5-11.1); PLATELET COUNT 262 K/MM3 (134-434); RBC 3.81 M/mm3 (3.60-5.2); WHITE BLOOD COUNT 12.1 K/mm3 (4.0-10.0)
[2018-12-21 09:01] LABS: ALBUMIN 2.7 g/dl (3.4-5.0); BILIRUBIN,TOTAL 0.2 mg/dL (0.2-1); BLOOD UREA NITROGEN 68.9 mg/dL (7-18); CALCIUM 8.6 mg/dL (8.5-10.1); CREATININE 2.4 mg/dL (0.55-1.3); POTASSIUM 4.4 mmol/L (3.5-5.1); TOT PROT 6.6 g/dl (6.4-8.2)
[2018-12-21] MEDS: CEFTRIAXONE 2 GM in DEXTROSE 5%-WATER 100 ML IVPB SCH (09:02)
[2018-12-21] MEDS: methylPREDNISolone NA SUCC 40 MG/1 ML VIAL IVPUSH SCH (09:03)
[2018-12-21] MEDS: LOSARTAN POTASSIUM 50 MG TABLET (FP) PO SCH (09:03)
[2018-12-21] MEDS: amLODIPine BESYLATE 5 MG TABLET (FP) PO SCH (09:03)
[2018-12-21] MEDS: LIDOCAINE 5% TOPICAL PATCH TP SCH (09:03)
[2018-12-21] MEDS: PANTOPRAZOLE 40 MG TABLET (FP) PO SCH (09:03)
[2018-12-21] MEDS: AZITHROMYCIN IVPB 500 MG/250 ML BAG IVPB SCH (10:31)
[2018-12-21] MEDS ORDERED: INSULIN (NOVOLOG) ASPART 100 UNITS/ML 10ML VIAL ONE ×2 (10:48→20:59)
--- NOTE | 2018-12-21 14:16 | PN ---
Progress Note, Physician History of Present Illness: pulmonary alert,comfortable,breathing better,-cough,-cp - Current Medication List Current Medications: Active Medications Acetaminophen (Tylenol -) 650 mg PO Q6H PRN PRN Reason: PAIN Last Admin: 12/20/18 21:42 Dose: 650 mg Albuterol Sulfate (Ventolin 0.083% Nebulizer Soln -) 1 amp NEB RTID [facility] Last Admin: 12/21/18 07:45 Dose: 1 amp Albuterol/Ipratropium (Duoneb -) 1 amp NEB Q4H PRN PRN Reason: SHORTNESS OF BREATH Last Admin: 12/14/18 20:45 Dose: 1 amp Amlodipine Besylate (Norvasc -) 5 mg PO DAILY [facility] Last Admin: 12/21/18 09:03 Dose: 5 mg Atorvastatin Calcium (Lipitor -) 40 mg PO HS [facility] Last Admin: 12/20/18 21:41 Dose: 40 mg Furosemide (Lasix -) 40 mg PO BIDLASIX [facility] Last Admin: 12/21/18 13:10 Dose: 40 mg Guaifenesin (Robitussin -) 10 ml PO Q8H PRN PRN Reason: COUGH Last Admin: 12/19/18 14:38 Dose: 10 ml Heparin Sodium (Porcine) (Heparin -) 5,000 unit SQ TID [facility] Last Admin: 12/21/18 13:10 Dose: 5,000 unit Azithromycin (Zithromax 500mg Ivpb (Pre-Docked)) 500 mg in 250 mls @ 250 mls/ hr IVPB DAILY [facility] Last Admin: 12/21/18 10:31 Dose: 250 mls/hr Ceftriaxone Sodium 2 gm/ (Dextrose) 100 mls @ 100 mls/hr IVPB DAILY [facility]; Protocol Last Admin: 12/21/18 09:02 Dose: 100 mls/hr Insulin Aspart (Novolog Vial Sliding Scale -) 1 vial SQ ACHS [facility]; Protocol Last Admin: 12/21/18 10:54 Dose: 2 units Insulin Detemir (Levemir Vial) 36 units SQ HS [facility] Last Admin: 12/20/18 21:41 Dose: 36 units Insulin Detemir (Levemir Vial) 40 units SQ AM [facility] Last Admin: 12/21/18 06:33 Dose: 40 units Lactic Acid (Lac-Hydrin 12) 1 applic TP DAILY PRN PRN Reason: DRY SKIN Levothyroxine Sodium (Synthroid -) 150 mcg PO AM [facility] Last Admin: 12/21/18 06:34 Dose: 150 mcg Lidocaine (Lidoderm Patch -) 1 patch TP DAILY [facility] Last Admin: 12/21/18 09:03 Dose: 1 patch Losartan Potassium (Cozaar -) 50 mg PO DAILY [facility] Last Admin: 12/21/18 09:03 Dose: 50 mg Methylprednisolone Sodium Succinate (Solu-Medrol -) 40 mg IVPUSH Q12H [facility] Last Admin: 12/21/18 09:03 Dose: 40 mg Metoprolol Succinate (Toprol Xl -) 100 mg PO DAILY [facility] Last Admin: 12/21/18 09:03 Dose: 100 mg Miscellaneous (Lidoderm Patch Removal) 1 each MC DAILY@2200 [facility] Last Admin: 12/20/18 21:42 Dose: Not Given Pantoprazole Sodium (Protonix -) 40 mg PO DAILY [facility] Last Admin: 12/21/18 09:03 Dose: 40 mg - Objective Vital Signs: Vital Signs Temperature 98.7 F 12/21/18 10:00 Pulse Rate 73 12/21/18 12:00 Respiratory Rate 20 12/21/18 10:00 Blood Pressure 146/88 12/21/18 12:00 O2 Sat by Pulse Oximetry (%) 96 12/21/18 09:00 Constitutional: Yes: Calm, Obese Eyes: Yes: WNL HENT: Yes: WNL Neck: Yes: WNL Cardiovascular: Yes: Regular Rate and Rhythm, S1, S2 Respiratory: Yes: CTA Bilaterally Gastrointestinal: Yes: Normal Bowel Sounds, Soft Extremities: Yes: WNL Edema: Yes Labs: CBC, BMP 12/21/18 08:15 12/21/18 08:15 Assessment/Plan A/P Pneumonia Sepsis Acute on Chronic Renal Failure HTN DM Hypothyroidism Morbid Obesity FLORES - antibiotics as per id - taper off steroids - inhaled bronchodilators as needed - O2 to keep SpO2 >90% - DVT prophylaxis - nippv at night DR OSUNA
--- NOTE | 2018-12-21 18:04 | PN ---
Progress Note, Physician History of Present Illness: Pt seen and examined at bedside. She is awake and alert. She feels breathing is improving but she still wheezes. - Current Medication List Current Medications: Active Medications Acetaminophen (Tylenol -) 650 mg PO Q6H PRN PRN Reason: PAIN Last Admin: 12/20/18 21:42 Dose: 650 mg Albuterol Sulfate (Ventolin 0.083% Nebulizer Soln -) 1 amp NEB RTID [facility] Last Admin: 12/21/18 14:53 Dose: 1 amp Albuterol/Ipratropium (Duoneb -) 1 amp NEB Q4H PRN PRN Reason: SHORTNESS OF BREATH Last Admin: 12/14/18 20:45 Dose: 1 amp Amlodipine Besylate (Norvasc -) 5 mg PO DAILY [facility] Last Admin: 12/21/18 09:03 Dose: 5 mg Atorvastatin Calcium (Lipitor -) 40 mg PO HS [facility] Last Admin: 12/20/18 21:41 Dose: 40 mg Furosemide (Lasix -) 40 mg PO BIDLASIX [facility] Last Admin: 12/21/18 13:10 Dose: 40 mg Guaifenesin (Robitussin -) 10 ml PO Q8H PRN PRN Reason: COUGH Last Admin: 12/19/18 14:38 Dose: 10 ml Heparin Sodium (Porcine) (Heparin -) 5,000 unit SQ TID [facility] Last Admin: 12/21/18 13:10 Dose: 5,000 unit Azithromycin (Zithromax 500mg Ivpb (Pre-Docked)) 500 mg in 250 mls @ 250 mls/ hr IVPB DAILY [facility] Last Admin: 12/21/18 10:31 Dose: 250 mls/hr Ceftriaxone Sodium 2 gm/ (Dextrose) 100 mls @ 100 mls/hr IVPB DAILY [facility]; Protocol Last Admin: 12/21/18 09:02 Dose: 100 mls/hr Insulin Aspart (Novolog Vial Sliding Scale -) 1 vial SQ ACHS [facility]; Protocol Last Admin: 12/21/18 16:11 Dose: 4 units Insulin Detemir (Levemir Vial) 36 units SQ HS [facility] Last Admin: 12/20/18 21:41 Dose: 36 units Insulin Detemir (Levemir Vial) 40 units SQ AM [facility] Last Admin: 12/21/18 06:33 Dose: 40 units Lactic Acid (Lac-Hydrin 12) 1 applic TP DAILY PRN PRN Reason: DRY SKIN Levothyroxine Sodium (Synthroid -) 150 mcg PO AM [facility] Last Admin: 12/21/18 06:34 Dose: 150 mcg Lidocaine (Lidoderm Patch -) 1 patch TP DAILY [facility] Last Admin: 12/21/18 09:03 Dose: 1 patch Losartan Potassium (Cozaar -) 50 mg PO DAILY [facility] Last Admin: 12/21/18 09:03 Dose: 50 mg Methylprednisolone Sodium Succinate (Solu-Medrol -) 40 mg IVPUSH DAILY [facility] Metoprolol Succinate (Toprol Xl -) 100 mg PO DAILY [facility] Last Admin: 12/21/18 09:03 Dose: 100 mg Miscellaneous (Lidoderm Patch Removal) 1 each MC DAILY@2200 [facility] Last Admin: 12/20/18 21:42 Dose: Not Given Pantoprazole Sodium (Protonix -) 40 mg PO DAILY [facility] Last Admin: 12/21/18 09:03 Dose: 40 mg - Objective Vital Signs: Vital Signs Temperature 98.4 F 12/21/18 16:20 Pulse Rate 80 12/21/18 16:20 Respiratory Rate 20 12/21/18 16:20 Blood Pressure 132/66 12/21/18 16:20 O2 Sat by Pulse Oximetry (%) 96 12/21/18 09:00 Constitutional: Yes: Calm Eyes: Yes: Conjunctiva Clear HENT: Yes: Atraumatic Neck: Yes: Supple Cardiovascular: Yes: S1, S2 Respiratory: Yes: CTA Bilaterally Gastrointestinal: Yes: Soft, Abdomen, Obese Genitourinary: Yes: WNL Musculoskeletal: Yes: WNL Edema: LLE: Trace, RLE: Trace Neurological: Yes: Oriented Psychiatric: Yes: Oriented Labs: CBC, BMP 12/21/18 08:15 12/21/18 08:15 Problem List - Problems (1) COPD (chronic obstructive pulmonary disease) Code(s): J44.9 - CHRONIC OBSTRUCTIVE PULMONARY DISEASE, UNSPECIFIED Qualifiers: COPD type: unspecified COPD Qualified Code(s): J44.9 - Chronic obstructive pulmonary disease, unspecified (2) Pneumonia Code(s): J18.9 - PNEUMONIA, UNSPECIFIED ORGANISM Qualifiers: Pneumonia type: due to unspecified organism Lung location: unspecified part of lung (3) REBEKAH (acute kidney injury) Code(s): N17.9 - ACUTE KIDNEY FAILURE, UNSPECIFIED (4) BMI 50.0-59.9, adult Code(s): Z68.43 - BODY MASS INDEX (BMI) 50.0-59.9, ADULT (5) CHF (congestive heart failure) Code(s): I50.9 - HEART FAILURE, UNSPECIFIED (6) CKD (chronic kidney disease) Code(s): N18.9 - CHRONIC KIDNEY DISEASE, UNSPECIFIED Assessment/Plan Current Medications Generic Name Dose Route Start Last Admin Trade Name Freq PRN Reason Stop Dose Admin Acetaminophen 650 mg 12/14/18 08:00 12/20/18 21:42 Tylenol - PO 650 mg Q6H PRN Administration PAIN Albuterol Sulfate 1 amp 12/16/18 14:00 12/21/18 14:53 Ventolin 0.083% Nebulizer Soln - NEB 1 amp RTID [facility] Administration Albuterol/Ipratropium 1 amp 12/13/18 20:00 12/14/18 20:45 Duoneb - NEB 1 amp Q4H PRN Administration SHORTNESS OF BREATH Amlodipine Besylate 5 mg 12/19/18 10:00 12/21/18 09:03 Norvasc - PO 5 mg DAILY [facility] Administration Atorvastatin Calcium 40 mg 12/13/18 22:00 12/20/18 21:41 Lipitor - PO 40 mg HS [facility] Administration Furosemide 40 mg 12/14/18 06:00 12/21/18 13:10 Lasix - PO 40 mg BIDLASIX [facility] Administration Guaifenesin 10 ml 12/18/18 13:42 12/19/18 14:38 Robitussin - PO 10 ml Q8H PRN Administration COUGH Heparin Sodium (Porcine) 5,000 unit 12/13/18 22:00 12/21/18 13:10 Heparin - SQ 5,000 unit TID [facility] Administration Azithromycin 500 mg in 250 mls @ 250 mls/hr 12/14/18 10:00 12/21/18 10:31 Zithromax 500mg Ivpb (Pre-Docked) IVPB 250 mls/hr DAILY [facility] Administration Ceftriaxone Sodium 2 gm/ 100 mls @ 100 mls/hr 12/18/18 10:00 12/21/18 09:02 Dextrose IVPB 100 mls/hr DAILY [facility] Administration Protocol Insulin Aspart 1 vial 12/13/18 22:00 12/21/18 16:11 Novolog Vial Sliding Scale - SQ 4 units ACHS [facility] Administration Protocol Insulin Detemir 36 units 12/13/18 22:00 12/20/18 21:41 Levemir Vial SQ 36 units HS [facility] Administration Insulin Detemir 40 units 12/14/18 07:00 12/21/18 06:33 Levemir Vial SQ 40 units AM [facility] Administration Lactic Acid 1 applic 12/19/18 07:23 Lac-Hydrin 12 TP DAILY PRN DRY SKIN Levothyroxine Sodium 150 mcg 12/14/18 07:00 12/21/18 06:34 Synthroid - PO 150 mcg AM [facility] Administration Lidocaine 1 patch 12/13/18 21:00 12/21/18 09:03 Lidoderm Patch - TP 1 patch DAILY [facility] Administration Losartan Potassium 50 mg 12/17/18 14:30 12/21/18 09:03 Cozaar - PO 50 mg DAILY [facility] Administration Methylprednisolone Sodium Succinate 40 mg 12/22/18 10:00 Solu-Medrol - IVPUSH DAILY [facility] Metoprolol Succinate 100 mg 12/14/18 10:00 12/21/18 09:03 Toprol Xl - PO 100 mg DAILY [facility] Administration Miscellaneous 1 each 12/13/18 22:00 12/20/18 21:42 Lidoderm Patch Removal MC Not Given DAILY@2200 [facility] Pantoprazole Sodium 40 mg 12/15/18 10:00 12/21/18 09:03 Protonix - PO 40 mg DAILY [facility] Administration Impression 1. CKD 2. REBEKAH 3. morbid obesity 4. hx of bariatric surgery 5. DM 6. HTN 7. hypothyroidism 8. ovarian cyst 9. PNA Plan - renal function stable - bp improved - pt tolerating arb - avoid nsaids - avoid nephrotoxins - steroids with taper as tolerated
[2018-12-21] MEDS: ACETAMINOPHEN 325 MG TABLET (FP) PO PRN (21:40)
[2018-12-21] MEDS: ATORVASTATIN CA 40 MG TABLET (FP) PO SCH (21:40)
[2018-12-21] MEDS: LIDOCAINE PATCH REMOVAL MC SCH (21:41)
[2018-12-22] MEDS: INSULIN SLIDING SCALE (NOVOLOG) 1 VIAL SQ SCH ×4 (06:08→22:02)
[2018-12-22] MEDS: FUROSEMIDE 40 MG TABLET (FP) PO SCH ×2 (06:35→13:35)
[2018-12-22] MEDS: LEVOTHYROXINE NA 150 MCG TABLET PO SCH (06:35)
[2018-12-22] MEDS: HEPARIN NA (PORCINE) 5,000 UNITS/ML 1ML VIAL SQ SCH ×3 (06:35→22:00)
[2018-12-22] MEDS: INSULIN (LEVEMIR) 100 UNITS/ML UNITS SQ SCH ×2 (06:36→22:01)
[2018-12-22] MEDS: ALBUTEROL SO4 0.083% IH SOL 2.5 MG/3 ML VIAL.NEB. NEB SCH ×3 (08:40→19:53)
[2018-12-22] MEDS ORDERED: DEXTROSE 5%-WATER 100 ML IVPB ONE (08:48)
[2018-12-22] MEDS: LIDOCAINE 5% TOPICAL PATCH TP SCH (09:10)
[2018-12-22] MEDS: amLODIPine BESYLATE 5 MG TABLET (FP) PO SCH (09:10)
[2018-12-22] MEDS: PANTOPRAZOLE 40 MG TABLET (FP) PO SCH (09:10)
[2018-12-22] MEDS: LOSARTAN POTASSIUM 50 MG TABLET (FP) PO SCH (09:10)
[2018-12-22] MEDS: methylPREDNISolone NA SUCC 40 MG/1 ML VIAL IVPUSH SCH (09:11)
[2018-12-22] MEDS: CEFTRIAXONE 2 GM in DEXTROSE 5%-WATER 100 ML IVPB SCH (09:11)
--- NOTE | 2018-12-22 09:37 | PN ---
Progress Note, Physician Chief Complaint: COPD Pneumonia History of Present Illness: NAD, feels better, has only been walking to the bathroom. CXR shows improvement in aeration - Current Medication List Current Medications: Active Medications Acetaminophen (Tylenol -) 650 mg PO Q6H PRN PRN Reason: PAIN Last Admin: 12/21/18 21:40 Dose: 650 mg Albuterol Sulfate (Ventolin 0.083% Nebulizer Soln -) 1 amp NEB RTID [facility] Last Admin: 12/22/18 08:40 Dose: 1 amp Albuterol/Ipratropium (Duoneb -) 1 amp NEB Q4H PRN PRN Reason: SHORTNESS OF BREATH Last Admin: 12/14/18 20:45 Dose: 1 amp Amlodipine Besylate (Norvasc -) 5 mg PO DAILY [facility] Last Admin: 12/22/18 09:10 Dose: 5 mg Atorvastatin Calcium (Lipitor -) 40 mg PO HS [facility] Last Admin: 12/21/18 21:40 Dose: 40 mg Furosemide (Lasix -) 40 mg PO BIDLASIX [facility] Last Admin: 12/22/18 06:35 Dose: 40 mg Guaifenesin (Robitussin -) 10 ml PO Q8H PRN PRN Reason: COUGH Last Admin: 12/19/18 14:38 Dose: 10 ml Heparin Sodium (Porcine) (Heparin -) 5,000 unit SQ TID [facility] Last Admin: 12/22/18 06:35 Dose: 5,000 unit Azithromycin (Zithromax 500mg Ivpb (Pre-Docked)) 500 mg in 250 mls @ 250 mls/ hr IVPB DAILY [facility] Last Admin: 12/21/18 10:31 Dose: 250 mls/hr Ceftriaxone Sodium 2 gm/ (Dextrose) 100 mls @ 100 mls/hr IVPB DAILY [facility]; Protocol Last Admin: 12/22/18 09:11 Dose: 100 mls/hr Insulin Aspart (Novolog Vial Sliding Scale -) 1 vial SQ ACHS [facility]; Protocol Last Admin: 12/22/18 06:08 Dose: Not Given Insulin Detemir (Levemir Vial) 36 units SQ HS [facility] Last Admin: 12/21/18 21:40 Dose: 36 units Insulin Detemir (Levemir Vial) 40 units SQ AM [facility] Last Admin: 12/22/18 06:36 Dose: 40 units Lactic Acid (Lac-Hydrin 12) 1 applic TP DAILY PRN PRN Reason: DRY SKIN Levothyroxine Sodium (Synthroid -) 150 mcg PO AM [facility] Last Admin: 12/22/18 06:35 Dose: 150 mcg Lidocaine (Lidoderm Patch -) 1 patch TP DAILY [facility] Last Admin: 12/22/18 09:10 Dose: 1 patch Losartan Potassium (Cozaar -) 50 mg PO DAILY [facility] Last Admin: 12/22/18 09:10 Dose: 50 mg Methylprednisolone Sodium Succinate (Solu-Medrol -) 40 mg IVPUSH DAILY [facility] Last Admin: 12/22/18 09:11 Dose: 40 mg Metoprolol Succinate (Toprol Xl -) 100 mg PO DAILY [facility] Last Admin: 12/22/18 09:10 Dose: 100 mg Miscellaneous (Lidoderm Patch Removal) 1 each MC DAILY@2200 [facility] Last Admin: 12/21/18 21:41 Dose: Not Given Pantoprazole Sodium (Protonix -) 40 mg PO DAILY [facility] Last Admin: 12/22/18 09:10 Dose: 40 mg - Objective Vital Signs: Vital Signs Temperature 98.7 F 12/22/18 08:39 Pulse Rate 73 12/22/18 08:39 Respiratory Rate 20 12/22/18 08:39 Blood Pressure 185/100 H 12/22/18 08:39 O2 Sat by Pulse Oximetry (%) 98 12/22/18 00:32 Constitutional: Yes: Well Nourished, No Distress, Calm Cardiovascular: Yes: Regular Rate and Rhythm Respiratory: Yes: Regular Gastrointestinal: Yes: Normal Bowel Sounds, Soft, Abdomen, Obese Genitourinary: Yes: WNL Musculoskeletal: Yes: Muscle Weakness Extremities: Yes: WNL Edema: No Peripheral Pulses WNL: Yes Neurological: Yes: Alert, Oriented Psychiatric: Yes: Alert, Oriented Labs: CBC, BMP 12/21/18 08:15 12/21/18 08:15 Assessment/Plan (1) COPD (chronic obstructive pulmonary disease) Assessment/Plan: -Pulm on board -CXR shows finding suspicious for RLL pneumonia -Bronchodiltors -keep SpO2 >90% -Bipap HS -IV Medrol Code(s): J44.9 - CHRONIC OBSTRUCTIVE PULMONARY DISEASE, UNSPECIFIED Qualifiers: COPD type: unspecified COPD Qualified Code(s): J44.9 - Chronic obstructive pulmonary disease, unspecified (2) Pneumonia Assessment/Plan: -Pulm on board -CXR shows findingd suspicious for RLL pneumonia -Bronchodiltors -keep SpO2 >90%, has home oxygen already -Bipap HS -IV Medrol -Azithromycin, Ceftriaxone -BC neg -Sputum Culture neg -Urine Legionella neg -Robitussin Code(s): J18.9 - PNEUMONIA, UNSPECIFIED ORGANISM Qualifiers: Pneumonia type: due to unspecified organism Lung location: unspecified part of lung (3) REBEKAH (acute kidney injury) Assessment/Plan: -renal on board -monitor renal function Code(s): N17.9 - ACUTE KIDNEY FAILURE, UNSPECIFIED (4) CHF (congestive heart failure) Assessment/Plan: -Furosemide -daily weights -strict I&O -fluid restriction -Cardiology consult Code(s): I50.9 - HEART FAILURE, UNSPECIFIED (5) Diabetes mellitus Assessment/Plan: -[facility] -Levemir -HgA1c 8.8% -diabetic diet Code(s): E11.9 - TYPE 2 DIABETES MELLITUS WITHOUT COMPLICATIONS Qualifiers: Diabetes mellitus type: type 2 (6) HLD (hyperlipidemia) Assessment/Plan: -Atorvastatin Code(s): E78.5 - HYPERLIPIDEMIA, UNSPECIFIED (7) HTN (hypertension) Assessment/Plan: -Metoprolol -low Na diet -Cozaar, Amlodipine Code(s): I10 - ESSENTIAL (PRIMARY) HYPERTENSION (8) Hypothyroid Assessment/Plan: -Levothyroxine Code(s): E03.9 - HYPOTHYROIDISM, UNSPECIFIED Assessment/Plan see problem list dvt ppx Encouraged ambulation in the hallway Physical therapy Pt already uses Home O2 can begin d/c planning when switch to PO Prednisone and PO antibiotics
[2018-12-22] MEDS: AZITHROMYCIN IVPB 500 MG/250 ML BAG IVPB SCH (09:57)
[2018-12-22] MEDS ORDERED: INSULIN (NOVOLOG) ASPART 100 UNITS/ML 10ML VIAL ONE ×2 (11:23→21:01)
[2018-12-22 11:32] VITALS: BMI 54.1
--- NOTE | 2018-12-22 12:38 | PN ---
Progress Note, Physician History of Present Illness: pulmonary alert,comfortable,-sob - Current Medication List Current Medications: Active Medications Acetaminophen (Tylenol -) 650 mg PO Q6H PRN PRN Reason: PAIN Last Admin: 12/21/18 21:40 Dose: 650 mg Albuterol Sulfate (Ventolin 0.083% Nebulizer Soln -) 1 amp NEB RTID [facility] Last Admin: 12/22/18 08:40 Dose: 1 amp Albuterol/Ipratropium (Duoneb -) 1 amp NEB Q4H PRN PRN Reason: SHORTNESS OF BREATH Last Admin: 12/14/18 20:45 Dose: 1 amp Amlodipine Besylate (Norvasc -) 5 mg PO DAILY [facility] Last Admin: 12/22/18 09:10 Dose: 5 mg Atorvastatin Calcium (Lipitor -) 40 mg PO HS [facility] Last Admin: 12/21/18 21:40 Dose: 40 mg Furosemide (Lasix -) 40 mg PO BIDLASIX [facility] Last Admin: 12/22/18 06:35 Dose: 40 mg Guaifenesin (Robitussin -) 10 ml PO Q8H PRN PRN Reason: COUGH Last Admin: 12/19/18 14:38 Dose: 10 ml Heparin Sodium (Porcine) (Heparin -) 5,000 unit SQ TID [facility] Last Admin: 12/22/18 06:35 Dose: 5,000 unit Azithromycin (Zithromax 500mg Ivpb (Pre-Docked)) 500 mg in 250 mls @ 250 mls/ hr IVPB DAILY [facility] Last Admin: 12/22/18 09:57 Dose: 250 mls/hr Ceftriaxone Sodium 2 gm/ (Dextrose) 100 mls @ 100 mls/hr IVPB DAILY [facility]; Protocol Last Admin: 12/22/18 09:11 Dose: 100 mls/hr Insulin Aspart (Novolog Vial Sliding Scale -) 1 vial SQ ACHS [facility]; Protocol Last Admin: 12/22/18 11:25 Dose: 2 units Insulin Detemir (Levemir Vial) 36 units SQ HS [facility] Last Admin: 12/21/18 21:40 Dose: 36 units Insulin Detemir (Levemir Vial) 40 units SQ AM [facility] Last Admin: 12/22/18 06:36 Dose: 40 units Lactic Acid (Lac-Hydrin 12) 1 applic TP DAILY PRN PRN Reason: DRY SKIN Levothyroxine Sodium (Synthroid -) 150 mcg PO AM [facility] Last Admin: 12/22/18 06:35 Dose: 150 mcg Lidocaine (Lidoderm Patch -) 1 patch TP DAILY [facility] Last Admin: 12/22/18 09:10 Dose: 1 patch Losartan Potassium (Cozaar -) 50 mg PO DAILY [facility] Last Admin: 12/22/18 09:10 Dose: 50 mg Methylprednisolone Sodium Succinate (Solu-Medrol -) 40 mg IVPUSH DAILY [facility] Last Admin: 12/22/18 09:11 Dose: 40 mg Metoprolol Succinate (Toprol Xl -) 100 mg PO DAILY [facility] Last Admin: 12/22/18 09:10 Dose: 100 mg Miscellaneous (Lidoderm Patch Removal) 1 each MC DAILY@2200 [facility] Last Admin: 12/21/18 21:41 Dose: Not Given Pantoprazole Sodium (Protonix -) 40 mg PO DAILY [facility] Last Admin: 12/22/18 09:10 Dose: 40 mg - Objective Vital Signs: Vital Signs Temperature 98.7 F 12/22/18 08:39 Pulse Rate 73 12/22/18 08:39 Respiratory Rate 20 12/22/18 09:00 Blood Pressure 185/100 H 12/22/18 08:39 O2 Sat by Pulse Oximetry (%) 99 12/22/18 09:00 Constitutional: Yes: No Distress, Calm, Obese Eyes: Yes: WNL HENT: Yes: WNL Neck: Yes: WNL Cardiovascular: Yes: Regular Rate and Rhythm, S1, S2 Respiratory: Yes: Diminished Gastrointestinal: Yes: Normal Bowel Sounds, Soft Extremities: Yes: WNL Edema: No Labs: CBC, BMP Assessment/Plan A/P Pneumonia cliinically improved Sepsis resolved Acute on Chronic Renal Failure HTN DM Hypothyroidism Morbid Obesity FLORES - antibiotics as per id - taper off steroids - inhaled bronchodilators as needed - O2 to keep SpO2 >90% - DVT prophylaxis - nippv at night DR OSUNA
--- NOTE | 2018-12-22 19:40 | PN ---
Progress Note, Physician History of Present Illness: Pt seen and examined at bedside. She is awake and alert. She denies shortness of breath. - Current Medication List Current Medications: Active Medications Acetaminophen (Tylenol -) 650 mg PO Q6H PRN PRN Reason: PAIN Last Admin: 12/21/18 21:40 Dose: 650 mg Albuterol Sulfate (Ventolin 0.083% Nebulizer Soln -) 1 amp NEB RTID [facility] Last Admin: 12/22/18 14:45 Dose: 1 amp Amlodipine Besylate (Norvasc -) 5 mg PO DAILY [facility] Last Admin: 12/22/18 09:10 Dose: 5 mg Atorvastatin Calcium (Lipitor -) 40 mg PO HS [facility] Last Admin: 12/21/18 21:40 Dose: 40 mg Furosemide (Lasix -) 40 mg PO BIDLASIX [facility] Last Admin: 12/22/18 13:35 Dose: 40 mg Guaifenesin (Robitussin -) 10 ml PO Q8H PRN PRN Reason: COUGH Last Admin: 12/19/18 14:38 Dose: 10 ml Heparin Sodium (Porcine) (Heparin -) 5,000 unit SQ TID [facility] Last Admin: 12/22/18 13:35 Dose: 5,000 unit Azithromycin (Zithromax 500mg Ivpb (Pre-Docked)) 500 mg in 250 mls @ 250 mls/ hr IVPB DAILY [facility] Last Admin: 12/22/18 09:57 Dose: 250 mls/hr Ceftriaxone Sodium 2 gm/ (Dextrose) 100 mls @ 100 mls/hr IVPB DAILY [facility]; Protocol Last Admin: 12/22/18 09:11 Dose: 100 mls/hr Insulin Aspart (Novolog Vial Sliding Scale -) 1 vial SQ ACHS [facility]; Protocol Last Admin: 12/22/18 16:38 Dose: 4 units Insulin Detemir (Levemir Vial) 36 units SQ HS [facility] Last Admin: 12/21/18 21:40 Dose: 36 units Insulin Detemir (Levemir Vial) 40 units SQ AM [facility] Last Admin: 12/22/18 06:36 Dose: 40 units Lactic Acid (Lac-Hydrin 12) 1 applic TP DAILY PRN PRN Reason: DRY SKIN Levothyroxine Sodium (Synthroid -) 150 mcg PO AM [facility] Last Admin: 12/22/18 06:35 Dose: 150 mcg Lidocaine (Lidoderm Patch -) 1 patch TP DAILY [facility] Last Admin: 12/22/18 09:10 Dose: 1 patch Losartan Potassium (Cozaar -) 50 mg PO DAILY [facility] Last Admin: 12/22/18 09:10 Dose: 50 mg Methylprednisolone Sodium Succinate (Solu-Medrol -) 40 mg IVPUSH DAILY [facility] Last Admin: 12/22/18 09:11 Dose: 40 mg Metoprolol Succinate (Toprol Xl -) 100 mg PO DAILY [facility] Last Admin: 12/22/18 09:10 Dose: 100 mg Miscellaneous (Lidoderm Patch Removal) 1 each MC DAILY@2200 [facility] Last Admin: 12/21/18 21:41 Dose: Not Given Pantoprazole Sodium (Protonix -) 40 mg PO DAILY [facility] Last Admin: 12/22/18 09:10 Dose: 40 mg - Objective Vital Signs: Vital Signs Temperature 98.7 F 12/22/18 16:20 Pulse Rate 71 12/22/18 16:20 Respiratory Rate 20 12/22/18 16:20 Blood Pressure 154/79 12/22/18 16:20 O2 Sat by Pulse Oximetry (%) 98 12/22/18 11:00 Constitutional: Yes: Calm Eyes: Yes: Conjunctiva Clear HENT: Yes: Atraumatic Cardiovascular: Yes: S1, S2 Respiratory: Yes: CTA Bilaterally Gastrointestinal: Yes: Soft Genitourinary: Yes: WNL Musculoskeletal: Yes: WNL Edema: No Neurological: Yes: Oriented Psychiatric: Yes: Oriented Labs: CBC, BMP 12/21/18 08:15 12/21/18 08:15 Problem List - Problems (1) COPD (chronic obstructive pulmonary disease) Code(s): J44.9 - CHRONIC OBSTRUCTIVE PULMONARY DISEASE, UNSPECIFIED Qualifiers: COPD type: unspecified COPD Qualified Code(s): J44.9 - Chronic obstructive pulmonary disease, unspecified (2) Pneumonia Code(s): J18.9 - PNEUMONIA, UNSPECIFIED ORGANISM Qualifiers: Pneumonia type: due to unspecified organism Lung location: unspecified part of lung (3) REBEKAH (acute kidney injury) Code(s): N17.9 - ACUTE KIDNEY FAILURE, UNSPECIFIED (4) BMI 50.0-59.9, adult Code(s): Z68.43 - BODY MASS INDEX (BMI) 50.0-59.9, ADULT (5) CHF (congestive heart failure) Code(s): I50.9 - HEART FAILURE, UNSPECIFIED (6) CKD (chronic kidney disease) Code(s): N18.9 - CHRONIC KIDNEY DISEASE, UNSPECIFIED Assessment/Plan Current Medications Generic Name Dose Route Start Last Admin Trade Name Freq PRN Reason Stop Dose Admin Acetaminophen 650 mg 12/14/18 08:00 12/21/18 21:40 Tylenol - PO 650 mg Q6H PRN Administration PAIN Albuterol Sulfate 1 amp 12/16/18 14:00 12/22/18 14:45 Ventolin 0.083% Nebulizer Soln - NEB 1 amp RTID [facility] Administration Amlodipine Besylate 5 mg 12/19/18 10:00 12/22/18 09:10 Norvasc - PO 5 mg DAILY [facility] Administration Atorvastatin Calcium 40 mg 12/13/18 22:00 12/21/18 21:40 Lipitor - PO 40 mg HS [facility] Administration Furosemide 40 mg 12/14/18 06:00 12/22/18 13:35 Lasix - PO 40 mg BIDLASIX [facility] Administration Guaifenesin 10 ml 12/18/18 13:42 12/19/18 14:38 Robitussin - PO 10 ml Q8H PRN Administration COUGH Heparin Sodium (Porcine) 5,000 unit 12/13/18 22:00 12/22/18 13:35 Heparin - SQ 5,000 unit TID [facility] Administration Azithromycin 500 mg in 250 mls @ 250 mls/hr 12/14/18 10:00 12/22/18 09:57 Zithromax 500mg Ivpb (Pre-Docked) IVPB 250 mls/hr DAILY [facility] Administration Ceftriaxone Sodium 2 gm/ 100 mls @ 100 mls/hr 12/18/18 10:00 12/22/18 09:11 Dextrose IVPB 100 mls/hr DAILY [facility] Administration Protocol Insulin Aspart 1 vial 12/13/18 22:00 12/22/18 16:38 Novolog Vial Sliding Scale - SQ 4 units ACHS [facility] Administration Protocol Insulin Detemir 36 units 12/13/18 22:00 12/21/18 21:40 Levemir Vial SQ 36 units HS [facility] Administration Insulin Detemir 40 units 12/14/18 07:00 12/22/18 06:36 Levemir Vial SQ 40 units AM [facility] Administration Lactic Acid 1 applic 12/19/18 07:23 Lac-Hydrin 12 TP DAILY PRN DRY SKIN Levothyroxine Sodium 150 mcg 12/14/18 07:00 12/22/18 06:35 Synthroid - PO 150 mcg AM [facility] Administration Lidocaine 1 patch 12/13/18 21:00 12/22/18 09:10 Lidoderm Patch - TP 1 patch DAILY [facility] Administration Losartan Potassium 50 mg 12/17/18 14:30 12/22/18 09:10 Cozaar - PO 50 mg DAILY [facility] Administration Methylprednisolone Sodium Succinate 40 mg 12/22/18 10:00 12/22/18 09:11 Solu-Medrol - IVPUSH 40 mg DAILY [facility] Administration Metoprolol Succinate 100 mg 12/14/18 10:00 12/22/18 09:10 Toprol Xl - PO 100 mg DAILY [facility] Administration Miscellaneous 1 each 12/13/18 22:00 12/21/18 21:41 Lidoderm Patch Removal MC Not Given DAILY@2200 [facility] Pantoprazole Sodium 40 mg 12/15/18 10:00 12/22/18 09:10 Protonix - PO 40 mg DAILY [facility] Administration Impression 1. CKD 2. REBEKAH 3. morbid obesity 4. hx of bariatric surgery 5. DM 6. HTN 7. hypothyroidism 8. ovarian cyst 9. PNA Plan - repeat labs in am - pulm status is improving - pt tolerating arb - avoid nsaids - avoid nephrotoxins
[2018-12-22] MEDS: ACETAMINOPHEN 325 MG TABLET (FP) PO PRN (22:00)
[2018-12-22] MEDS: ATORVASTATIN CA 40 MG TABLET (FP) PO SCH (22:01)
[2018-12-22] MEDS: LIDOCAINE PATCH REMOVAL MC SCH (22:02)
[2018-12-23] MEDS: INSULIN SLIDING SCALE (NOVOLOG) 1 VIAL SQ SCH ×4 (06:27→22:50)
[2018-12-23] MEDS: LEVOTHYROXINE NA 150 MCG TABLET PO SCH (06:29)
[2018-12-23] MEDS: FUROSEMIDE 40 MG TABLET (FP) PO SCH ×2 (06:29→14:00)
[2018-12-23] MEDS: HEPARIN NA (PORCINE) 5,000 UNITS/ML 1ML VIAL SQ SCH ×3 (06:29→23:20)
[2018-12-23] MEDS: INSULIN (LEVEMIR) 100 UNITS/ML UNITS SQ SCH ×3 (06:29→23:58)
[2018-12-23] MEDS: ALBUTEROL SO4 0.083% IH SOL 2.5 MG/3 ML VIAL.NEB. NEB SCH ×2 (08:11→21:33)
[2018-12-23 08:34] LABS: BLOOD UREA NITROGEN 69.9 mg/dL (7-18); CALCIUM 8.1 mg/dL (8.5-10.1); CREATININE 2.7 mg/dL (0.55-1.3); POTASSIUM 4.4 mmol/L (3.5-5.1)
[2018-12-23] MEDS ORDERED: DEXTROSE 5%-WATER 100 ML IVPB ONE (10:00)
[2018-12-23] MEDS: CEFTRIAXONE 2 GM in DEXTROSE 5%-WATER 100 ML IVPB SCH (10:06)
--- NOTE | 2018-12-23 10:06 | PN ---
Progress Note, Physician Chief Complaint: COPD Pneumonia History of Present Illness: Previous notes and events reviewed awake and alert NAD sts cough and breathing improved had pre/post SpO2 and noted with SpO2 98% on RA while ambulating - Current Medication List Current Medications: Active Medications Acetaminophen (Tylenol -) 650 mg PO Q6H PRN PRN Reason: PAIN Last Admin: 12/22/18 22:00 Dose: 650 mg Albuterol Sulfate (Ventolin 0.083% Nebulizer Soln -) 1 amp NEB RTID [facility] Last Admin: 12/23/18 08:11 Dose: 1 amp Amlodipine Besylate (Norvasc -) 5 mg PO DAILY [facility] Last Admin: 12/22/18 09:10 Dose: 5 mg Atorvastatin Calcium (Lipitor -) 40 mg PO HS [facility] Last Admin: 12/22/18 22:01 Dose: 40 mg Furosemide (Lasix -) 40 mg PO BIDLASIX [facility] Last Admin: 12/23/18 06:29 Dose: 40 mg Guaifenesin (Robitussin -) 10 ml PO Q8H PRN PRN Reason: COUGH Last Admin: 12/19/18 14:38 Dose: 10 ml Heparin Sodium (Porcine) (Heparin -) 5,000 unit SQ TID [facility] Last Admin: 12/23/18 06:29 Dose: 5,000 unit Azithromycin (Zithromax 500mg Ivpb (Pre-Docked)) 500 mg in 250 mls @ 250 mls/ hr IVPB DAILY [facility] Last Admin: 12/22/18 09:57 Dose: 250 mls/hr Ceftriaxone Sodium 2 gm/ (Dextrose) 100 mls @ 100 mls/hr IVPB DAILY [facility]; Protocol Last Admin: 12/22/18 09:11 Dose: 100 mls/hr Insulin Aspart (Novolog Vial Sliding Scale -) 1 vial SQ ACHS [facility]; Protocol Last Admin: 12/23/18 06:27 Dose: Not Given Insulin Detemir (Levemir Vial) 36 units SQ HS [facility] Last Admin: 12/22/18 22:01 Dose: 36 units Insulin Detemir (Levemir Vial) 40 units SQ AM [facility] Last Admin: 12/23/18 06:29 Dose: 40 units Lactic Acid (Lac-Hydrin 12) 1 applic TP DAILY PRN PRN Reason: DRY SKIN Levothyroxine Sodium (Synthroid -) 150 mcg PO AM [facility] Last Admin: 12/23/18 06:29 Dose: 150 mcg Lidocaine (Lidoderm Patch -) 1 patch TP DAILY [facility] Last Admin: 12/22/18 09:10 Dose: 1 patch Losartan Potassium (Cozaar -) 50 mg PO DAILY [facility] Last Admin: 12/22/18 09:10 Dose: 50 mg Methylprednisolone Sodium Succinate (Solu-Medrol -) 40 mg IVPUSH DAILY [facility] Last Admin: 12/22/18 09:11 Dose: 40 mg Metoprolol Succinate (Toprol Xl -) 100 mg PO DAILY [facility] Last Admin: 12/22/18 09:10 Dose: 100 mg Miscellaneous (Lidoderm Patch Removal) 1 each MC DAILY@2200 [facility] Last Admin: 12/22/18 22:02 Dose: Not Given Pantoprazole Sodium (Protonix -) 40 mg PO DAILY [facility] Last Admin: 12/22/18 09:10 Dose: 40 mg - Objective Vital Signs: Vital Signs Temperature 97.8 F 12/23/18 04:00 Pulse Rate 67 12/23/18 04:00 Respiratory Rate 20 12/23/18 04:00 Blood Pressure 177/89 H 12/23/18 04:00 O2 Sat by Pulse Oximetry (%) 98 12/22/18 22:53 Constitutional: Yes: No Distress, Calm, Obese Eyes: Yes: Conjunctiva Clear HENT: Yes: Atraumatic Cardiovascular: Yes: Regular Rate and Rhythm Respiratory: Yes: Regular, Diminished Gastrointestinal: Yes: Normal Bowel Sounds, Soft, Abdomen, Obese Musculoskeletal: Yes: WNL Extremities: Yes: WNL Edema: No Neurological: Yes: Alert, Oriented Psychiatric: Yes: Alert, Oriented Labs: CBC, BMP 12/21/18 08:15 12/23/18 07:10 Problem List - Problems (1) COPD (chronic obstructive pulmonary disease) Assessment/Plan: -Pulm on board -CXR shows finding suspicious for RLL pneumonia -Bronchodiltors -keep SpO2 >90% -Bipap HS -IV Medrol Code(s): J44.9 - CHRONIC OBSTRUCTIVE PULMONARY DISEASE, UNSPECIFIED Qualifiers: COPD type: unspecified COPD Qualified Code(s): J44.9 - Chronic obstructive pulmonary disease, unspecified (2) Pneumonia Assessment/Plan: -Pulm on board -CXR shows findingd suspicious for RLL pneumonia -Bronchodiltors -keep SpO2 >90% -Bipap HS -IV Medrol -Azithromycin, Ceftriaxone -BC neg -Sputum Culture neg -Urine Legionella neg -Robitussin -afebrile -leukocytosis Code(s): J18.9 - PNEUMONIA, UNSPECIFIED ORGANISM Qualifiers: Pneumonia type: due to unspecified organism Lung location: unspecified part of lung (3) REBEKAH (acute kidney injury) Assessment/Plan: -BUN/Cr 69.9/2.7 -renal on board -monitor renal function Code(s): N17.9 - ACUTE KIDNEY FAILURE, UNSPECIFIED (4) CHF (congestive heart failure) Assessment/Plan: -Furosemide -daily weights -strict I&O -fluid restriction -Cardiology on board Code(s): I50.9 - HEART FAILURE, UNSPECIFIED (5) Diabetes mellitus Assessment/Plan: -BGM ACHS -ISS -Levemir BID -HgA1c 8.8% -diabetic diet Code(s): E11.9 - TYPE 2 DIABETES MELLITUS WITHOUT COMPLICATIONS Qualifiers: Diabetes mellitus type: type 2 (6) HLD (hyperlipidemia) Assessment/Plan: -Atorvastatin Code(s): E78.5 - HYPERLIPIDEMIA, UNSPECIFIED (7) HTN (hypertension) Assessment/Plan: -Metoprolol -low Na diet -Cozaar, Amlodipine Code(s): I10 - ESSENTIAL (PRIMARY) HYPERTENSION (8) Hypothyroid Assessment/Plan: -Levothyroxine Code(s): E03.9 - HYPOTHYROIDISM, UNSPECIFIED Assessment/Plan see problem list dvt ppx can begin d/c planning when switch to PO antibiotics
[2018-12-23] MEDS: LIDOCAINE 5% TOPICAL PATCH TP SCH (10:09)
[2018-12-23] MEDS: LOSARTAN POTASSIUM 50 MG TABLET (FP) PO SCH (10:09)
[2018-12-23] MEDS: amLODIPine BESYLATE 5 MG TABLET (FP) PO SCH (10:09)
[2018-12-23] MEDS: PANTOPRAZOLE 40 MG TABLET (FP) PO SCH (10:09)
[2018-12-23] MEDS: methylPREDNISolone NA SUCC 40 MG/1 ML VIAL IVPUSH SCH (10:10)
--- NOTE | 2018-12-23 10:28 | PN ---
Progress Note (short form) - Note Progress Note: PULMONARY Breathing improved. No fevers or chills. Minimal cough. Vital Signs Period Temp Pulse Resp BP Sys/Falcon Pulse Ox Last 24 Hr 97.7 F-98.7 F 65-73 20-20 150-177/74-89 97-98 Gen: NAD at rest Heart: RRR Lung: decreased breath sounds at the bases Abd: soft, nontender Ext: no edema CBC, BMP 12/21/18 08:15 12/23/18 07:10 Active Medications Acetaminophen (Tylenol -) 650 mg PO Q6H PRN PRN Reason: PAIN Last Admin: 12/22/18 22:00 Dose: 650 mg Albuterol Sulfate (Ventolin 0.083% Nebulizer Soln -) 1 amp NEB RTID [facility] Last Admin: 12/23/18 08:11 Dose: 1 amp Amlodipine Besylate (Norvasc -) 5 mg PO DAILY [facility] Last Admin: 12/23/18 10:09 Dose: 5 mg Atorvastatin Calcium (Lipitor -) 40 mg PO HS [facility] Last Admin: 12/22/18 22:01 Dose: 40 mg Furosemide (Lasix -) 40 mg PO BIDLASIX [facility] Last Admin: 12/23/18 06:29 Dose: 40 mg Guaifenesin (Robitussin -) 10 ml PO Q8H PRN PRN Reason: COUGH Last Admin: 12/19/18 14:38 Dose: 10 ml Heparin Sodium (Porcine) (Heparin -) 5,000 unit SQ TID [facility] Last Admin: 12/23/18 06:29 Dose: 5,000 unit Azithromycin (Zithromax 500mg Ivpb (Pre-Docked)) 500 mg in 250 mls @ 250 mls/ hr IVPB DAILY [facility] Last Admin: 12/22/18 09:57 Dose: 250 mls/hr Ceftriaxone Sodium 2 gm/ (Dextrose) 100 mls @ 100 mls/hr IVPB DAILY [facility]; Protocol Last Admin: 12/23/18 10:06 Dose: 100 mls/hr Insulin Aspart (Novolog Vial Sliding Scale -) 1 vial SQ ACHS [facility]; Protocol Last Admin: 12/23/18 06:27 Dose: Not Given Insulin Detemir (Levemir Vial) 36 units SQ HS [facility] Last Admin: 12/22/18 22:01 Dose: 36 units Insulin Detemir (Levemir Vial) 40 units SQ AM [facility] Last Admin: 12/23/18 06:29 Dose: 40 units Lactic Acid (Lac-Hydrin 12) 1 applic TP DAILY PRN PRN Reason: DRY SKIN Levothyroxine Sodium (Synthroid -) 150 mcg PO AM [facility] Last Admin: 12/23/18 06:29 Dose: 150 mcg Lidocaine (Lidoderm Patch -) 1 patch TP DAILY [facility] Last Admin: 12/23/18 10:09 Dose: 1 patch Losartan Potassium (Cozaar -) 50 mg PO DAILY [facility] Last Admin: 12/23/18 10:09 Dose: 50 mg Methylprednisolone Sodium Succinate (Solu-Medrol -) 40 mg IVPUSH DAILY [facility] Last Admin: 12/23/18 10:10 Dose: 40 mg Metoprolol Succinate (Toprol Xl -) 100 mg PO DAILY [facility] Last Admin: 12/23/18 10:09 Dose: 100 mg Miscellaneous (Lidoderm Patch Removal) 1 each MC DAILY@2200 [facility] Last Admin: 12/22/18 22:02 Dose: Not Given Pantoprazole Sodium (Protonix -) 40 mg PO DAILY [facility] Last Admin: 12/23/18 10:09 Dose: 40 mg A/P Pneumonia Sepsis Acute on Chronic Renal Failure HTN DM Hypothyroidism Morbid Obesity - complete antibiotics - can d/c steroids - inhaled bronchodilators as needed - O2 to keep SpO2 >90% - DVT prophylaxis
[2018-12-23] MEDS: AZITHROMYCIN IVPB 500 MG/250 ML BAG IVPB SCH (10:44)
--- NOTE | 2018-12-23 16:11 | PN ---
Progress Note, Physician History of Present Illness: Pt seen and examined at bedside. She is awake and alert. She feels that her breathing is improved. - Current Medication List Current Medications: Active Medications Acetaminophen (Tylenol -) 650 mg PO Q6H PRN PRN Reason: PAIN Last Admin: 12/22/18 22:00 Dose: 650 mg Albuterol Sulfate (Ventolin 0.083% Nebulizer Soln -) 1 amp NEB RTID [facility] Last Admin: 12/23/18 08:11 Dose: 1 amp Amlodipine Besylate (Norvasc -) 5 mg PO DAILY [facility] Last Admin: 12/23/18 10:09 Dose: 5 mg Atorvastatin Calcium (Lipitor -) 40 mg PO HS [facility] Last Admin: 12/22/18 22:01 Dose: 40 mg Furosemide (Lasix -) 40 mg PO BIDLASIX [facility] Last Admin: 12/23/18 14:00 Dose: 40 mg Guaifenesin (Robitussin -) 10 ml PO Q8H PRN PRN Reason: COUGH Last Admin: 12/19/18 14:38 Dose: 10 ml Heparin Sodium (Porcine) (Heparin -) 5,000 unit SQ TID [facility] Last Admin: 12/23/18 14:00 Dose: 5,000 unit Azithromycin (Zithromax 500mg Ivpb (Pre-Docked)) 500 mg in 250 mls @ 250 mls/ hr IVPB DAILY [facility] Last Admin: 12/23/18 10:44 Dose: 250 mls/hr Ceftriaxone Sodium 2 gm/ (Dextrose) 100 mls @ 100 mls/hr IVPB DAILY [facility]; Protocol Last Admin: 12/23/18 10:06 Dose: 100 mls/hr Insulin Aspart (Novolog Vial Sliding Scale -) 1 vial SQ ACHS [facility]; Protocol Last Admin: 12/23/18 11:24 Dose: Not Given Insulin Detemir (Levemir Vial) 36 units SQ HS [facility] Last Admin: 12/22/18 22:01 Dose: 36 units Insulin Detemir (Levemir Vial) 40 units SQ AM [facility] Last Admin: 12/23/18 06:29 Dose: 40 units Lactic Acid (Lac-Hydrin 12) 1 applic TP DAILY PRN PRN Reason: DRY SKIN Levothyroxine Sodium (Synthroid -) 150 mcg PO AM [facility] Last Admin: 12/23/18 06:29 Dose: 150 mcg Lidocaine (Lidoderm Patch -) 1 patch TP DAILY [facility] Last Admin: 12/23/18 10:09 Dose: 1 patch Losartan Potassium (Cozaar -) 50 mg PO DAILY [facility] Last Admin: 12/23/18 10:09 Dose: 50 mg Methylprednisolone Sodium Succinate (Solu-Medrol -) 40 mg IVPUSH DAILY [facility] Last Admin: 12/23/18 10:10 Dose: 40 mg Metoprolol Succinate (Toprol Xl -) 100 mg PO DAILY [facility] Last Admin: 12/23/18 10:09 Dose: 100 mg Miscellaneous (Lidoderm Patch Removal) 1 each MC DAILY@2200 [facility] Last Admin: 12/22/18 22:02 Dose: Not Given Pantoprazole Sodium (Protonix -) 40 mg PO DAILY [facility] Last Admin: 12/23/18 10:09 Dose: 40 mg - Objective Vital Signs: Vital Signs Temperature 98.5 F 12/23/18 14:00 Pulse Rate 69 12/23/18 14:00 Respiratory Rate 20 12/23/18 14:00 Blood Pressure 155/78 12/23/18 14:00 O2 Sat by Pulse Oximetry (%) 99 12/23/18 09:00 Constitutional: Yes: Calm Eyes: Yes: Conjunctiva Clear HENT: Yes: Atraumatic Neck: Yes: Supple Cardiovascular: Yes: S1, S2 Respiratory: Yes: CTA Bilaterally Gastrointestinal: Yes: Normal Bowel Sounds, Soft Genitourinary: Yes: WNL Musculoskeletal: Yes: WNL Edema: No Neurological: Yes: Oriented Psychiatric: Yes: Oriented Labs: CBC, BMP 12/21/18 08:15 12/23/18 07:10 Problem List - Problems (1) COPD (chronic obstructive pulmonary disease) Code(s): J44.9 - CHRONIC OBSTRUCTIVE PULMONARY DISEASE, UNSPECIFIED Qualifiers: COPD type: unspecified COPD Qualified Code(s): J44.9 - Chronic obstructive pulmonary disease, unspecified (2) Pneumonia Code(s): J18.9 - PNEUMONIA, UNSPECIFIED ORGANISM Qualifiers: Pneumonia type: due to unspecified organism Lung location: unspecified part of lung (3) REBEKAH (acute kidney injury) Code(s): N17.9 - ACUTE KIDNEY FAILURE, UNSPECIFIED (4) BMI 50.0-59.9, adult Code(s): Z68.43 - BODY MASS INDEX (BMI) 50.0-59.9, ADULT (5) CHF (congestive heart failure) Code(s): I50.9 - HEART FAILURE, UNSPECIFIED (6) CKD (chronic kidney disease) Code(s): N18.9 - CHRONIC KIDNEY DISEASE, UNSPECIFIED Assessment/Plan Current Medications Generic Name Dose Route Start Last Admin Trade Name Freq PRN Reason Stop Dose Admin Acetaminophen 650 mg 12/14/18 08:00 12/22/18 22:00 Tylenol - PO 650 mg Q6H PRN Administration PAIN Albuterol Sulfate 1 amp 12/16/18 14:00 12/23/18 08:11 Ventolin 0.083% Nebulizer Soln - NEB 1 amp RTID [facility] Administration Amlodipine Besylate 5 mg 12/19/18 10:00 12/23/18 10:09 Norvasc - PO 5 mg DAILY [facility] Administration Atorvastatin Calcium 40 mg 12/13/18 22:00 12/22/18 22:01 Lipitor - PO 40 mg HS [facility] Administration Furosemide 40 mg 12/14/18 06:00 12/23/18 14:00 Lasix - PO 40 mg BIDLASIX [facility] Administration Guaifenesin 10 ml 12/18/18 13:42 12/19/18 14:38 Robitussin - PO 10 ml Q8H PRN Administration COUGH Heparin Sodium (Porcine) 5,000 unit 12/13/18 22:00 12/23/18 14:00 Heparin - SQ 5,000 unit TID [facility] Administration Azithromycin 500 mg in 250 mls @ 250 mls/hr 12/14/18 10:00 12/23/18 10:44 Zithromax 500mg Ivpb (Pre-Docked) IVPB 250 mls/hr DAILY [facility] Administration Ceftriaxone Sodium 2 gm/ 100 mls @ 100 mls/hr 12/18/18 10:00 12/23/18 10:06 Dextrose IVPB 100 mls/hr DAILY [facility] Administration Protocol Insulin Aspart 1 vial 12/13/18 22:00 12/23/18 11:24 Novolog Vial Sliding Scale - SQ Not Given ACHS [facility] Protocol Insulin Detemir 36 units 12/13/18 22:00 12/22/18 22:01 Levemir Vial SQ 36 units HS [facility] Administration Insulin Detemir 40 units 12/14/18 07:00 12/23/18 06:29 Levemir Vial SQ 40 units AM [facility] Administration Lactic Acid 1 applic 12/19/18 07:23 Lac-Hydrin 12 TP DAILY PRN DRY SKIN Levothyroxine Sodium 150 mcg 12/14/18 07:00 12/23/18 06:29 Synthroid - PO 150 mcg AM [facility] Administration Lidocaine 1 patch 12/13/18 21:00 12/23/18 10:09 Lidoderm Patch - TP 1 patch DAILY [facility] Administration Losartan Potassium 50 mg 12/17/18 14:30 12/23/18 10:09 Cozaar - PO 50 mg DAILY [facility] Administration Methylprednisolone Sodium Succinate 40 mg 12/22/18 10:00 12/23/18 10:10 Solu-Medrol - IVPUSH 40 mg DAILY [facility] Administration Metoprolol Succinate 100 mg 12/14/18 10:00 12/23/18 10:09 Toprol Xl - PO 100 mg DAILY [facility] Administration Miscellaneous 1 each 12/13/18 22:00 12/22/18 22:02 Lidoderm Patch Removal MC Not Given DAILY@2200 [facility] Pantoprazole Sodium 40 mg 12/15/18 10:00 12/23/18 10:09 Protonix - PO 40 mg DAILY [facility] Administration Impression 1. CKD 2. REBEKAH 3. morbid obesity 4. hx of bariatric surgery 5. DM 6. HTN 7. hypothyroidism 8. ovarian cyst 9. PNA Plan - cont current management - cont arb - potassium stable - taper steroids as tolerated - outpt follow up
[2018-12-23] MEDS: ATORVASTATIN CA 40 MG TABLET (FP) PO SCH (23:20)
[2018-12-23] MEDS: LIDOCAINE PATCH REMOVAL MC SCH (23:25)
--- NOTE | 2018-12-23 23:41 | PN ---
Progress Note, Physician - Current Medication List Current Medications: Active Medications Acetaminophen (Tylenol -) 650 mg PO Q6H PRN PRN Reason: PAIN Last Admin: 12/22/18 22:00 Dose: 650 mg Albuterol Sulfate (Ventolin 0.083% Nebulizer Soln -) 1 amp NEB RTID [facility] Last Admin: 12/23/18 21:33 Dose: 1 amp Amlodipine Besylate (Norvasc -) 5 mg PO DAILY [facility] Last Admin: 12/23/18 10:09 Dose: 5 mg Atorvastatin Calcium (Lipitor -) 40 mg PO HS [facility] Last Admin: 12/23/18 23:20 Dose: 40 mg Furosemide (Lasix -) 40 mg PO BIDLASIX [facility] Last Admin: 12/23/18 14:00 Dose: 40 mg Guaifenesin (Robitussin -) 10 ml PO Q8H PRN PRN Reason: COUGH Last Admin: 12/19/18 14:38 Dose: 10 ml Heparin Sodium (Porcine) (Heparin -) 5,000 unit SQ TID [facility] Last Admin: 12/23/18 23:20 Dose: 5,000 unit Azithromycin (Zithromax 500mg Ivpb (Pre-Docked)) 500 mg in 250 mls @ 250 mls/ hr IVPB DAILY [facility] Last Admin: 12/23/18 10:44 Dose: 250 mls/hr Ceftriaxone Sodium 2 gm/ (Dextrose) 100 mls @ 100 mls/hr IVPB DAILY [facility]; Protocol Last Admin: 12/23/18 10:06 Dose: 100 mls/hr Insulin Aspart (Novolog Vial Sliding Scale -) 1 vial SQ ACHS [facility]; Protocol Last Admin: 12/23/18 22:50 Dose: Not Given Insulin Detemir (Levemir Vial) 36 units SQ HS [facility] Last Admin: 12/23/18 22:50 Dose: Not Given Insulin Detemir (Levemir Vial) 40 units SQ AM [facility] Last Admin: 12/23/18 06:29 Dose: 40 units Lactic Acid (Lac-Hydrin 12) 1 applic TP DAILY PRN PRN Reason: DRY SKIN Levothyroxine Sodium (Synthroid -) 150 mcg PO AM [facility] Last Admin: 12/23/18 06:29 Dose: 150 mcg Lidocaine (Lidoderm Patch -) 1 patch TP DAILY [facility] Last Admin: 12/23/18 10:09 Dose: 1 patch Losartan Potassium (Cozaar -) 50 mg PO DAILY [facility] Last Admin: 12/23/18 10:09 Dose: 50 mg Methylprednisolone Sodium Succinate (Solu-Medrol -) 40 mg IVPUSH DAILY [facility] Last Admin: 12/23/18 10:10 Dose: 40 mg Metoprolol Succinate (Toprol Xl -) 100 mg PO DAILY [facility] Last Admin: 12/23/18 10:09 Dose: 100 mg Miscellaneous (Lidoderm Patch Removal) 1 each MC DAILY@2200 [facility] Last Admin: 12/23/18 23:25 Dose: 1 each Pantoprazole Sodium (Protonix -) 40 mg PO DAILY [facility] Last Admin: 12/23/18 10:09 Dose: 40 mg - Objective Vital Signs: Vital Signs Temperature 98.8 F 12/23/18 17:18 Pulse Rate 70 12/23/18 17:18 Respiratory Rate 20 12/23/18 17:18 Blood Pressure 163/93 12/23/18 17:18 O2 Sat by Pulse Oximetry (%) 99 12/23/18 09:00 Labs: CBC, BMP 12/21/18 08:15 12/23/18 07:10
[2018-12-23] MEDS: ACETAMINOPHEN 325 MG TABLET (FP) PO PRN (23:57)
[2018-12-24] MEDS: INSULIN SLIDING SCALE (NOVOLOG) 1 VIAL SQ SCH ×2 (06:24→11:59)
[2018-12-24] MEDS: HEPARIN NA (PORCINE) 5,000 UNITS/ML 1ML VIAL SQ SCH ×2 (06:25→13:48)
[2018-12-24] MEDS: LEVOTHYROXINE NA 150 MCG TABLET PO SCH (06:26)
[2018-12-24] MEDS: FUROSEMIDE 40 MG TABLET (FP) PO SCH ×2 (06:26→13:49)
[2018-12-24] MEDS: ALBUTEROL SO4 0.083% IH SOL 2.5 MG/3 ML VIAL.NEB. NEB SCH ×2 (08:00→13:02)
[2018-12-24] MEDS: INSULIN (LEVEMIR) 100 UNITS/ML UNITS SQ SCH (08:30)
[2018-12-24] MEDS: LOSARTAN POTASSIUM 50 MG TABLET (FP) PO SCH ×2 (08:31→09:15)
[2018-12-24] MEDS: amLODIPine BESYLATE 5 MG TABLET (FP) PO SCH ×2 (08:31→09:15)
[2018-12-24] MEDS: AZITHROMYCIN IVPB 500 MG/250 ML BAG IVPB SCH (09:14)
[2018-12-24] MEDS: methylPREDNISolone NA SUCC 40 MG/1 ML VIAL IVPUSH SCH (09:14)
[2018-12-24] MEDS: PANTOPRAZOLE 40 MG TABLET (FP) PO SCH (09:15)
[2018-12-24] MEDS: LIDOCAINE 5% TOPICAL PATCH TP SCH (09:15)
[2018-12-24] MEDS ORDERED: PT OWN MED DRAWER 7, Y5N ONE (10:09)
--- NOTE | 2018-12-24 10:09 | PN ---
Progress Note (short form) - Note Progress Note: PULMONARY Breathing improved. No fevers or chills. Minimal cough. Saturating 99% on room air. Has been ambulating. Vital Signs Period Temp Pulse Resp BP Sys/Falcon Pulse Ox Last 24 Hr 98 F-98.8 F 69-77 20-20 136-172/73-94 100 Gen: NAD at rest Heart: RRR Lung: decreased breath sounds at the bases Abd: soft, nontender Ext: no edema CBC, BMP 12/21/18 08:15 12/23/18 07:10 Active Medications Acetaminophen (Tylenol -) 650 mg PO Q6H PRN PRN Reason: PAIN Last Admin: 12/23/18 23:57 Dose: 650 mg Albuterol Sulfate (Ventolin 0.083% Nebulizer Soln -) 1 amp NEB RTID [facility] Last Admin: 12/24/18 08:00 Dose: 1 amp Amlodipine Besylate (Norvasc -) 5 mg PO DAILY [facility] Last Admin: 12/24/18 09:15 Dose: Not Given Atorvastatin Calcium (Lipitor -) 40 mg PO HS [facility] Last Admin: 12/23/18 23:20 Dose: 40 mg Furosemide (Lasix -) 40 mg PO BIDLASIX [facility] Last Admin: 12/24/18 06:26 Dose: 40 mg Guaifenesin (Robitussin -) 10 ml PO Q8H PRN PRN Reason: COUGH Last Admin: 12/19/18 14:38 Dose: 10 ml Heparin Sodium (Porcine) (Heparin -) 5,000 unit SQ TID [facility] Last Admin: 12/24/18 06:25 Dose: 5,000 unit Azithromycin (Zithromax 500mg Ivpb (Pre-Docked)) 500 mg in 250 mls @ 250 mls/ hr IVPB DAILY [facility] Last Admin: 12/24/18 09:14 Dose: 250 mls/hr Ceftriaxone Sodium 2 gm/ (Dextrose) 100 mls @ 100 mls/hr IVPB DAILY [facility]; Protocol Last Admin: 12/23/18 10:06 Dose: 100 mls/hr Insulin Aspart (Novolog Vial Sliding Scale -) 1 vial SQ ACHS [facility]; Protocol Last Admin: 12/24/18 06:24 Dose: Not Given Insulin Detemir (Levemir Vial) 36 units SQ [facility] Last Admin: 12/23/18 23:58 Dose: 36 units Insulin Detemir (Levemir Vial) 40 units SQ AM [facility] Last Admin: 12/24/18 08:30 Dose: 40 units Lactic Acid (Lac-Hydrin 12) 1 applic TP DAILY PRN PRN Reason: DRY SKIN Levothyroxine Sodium (Synthroid -) 150 mcg PO AM [facility] Last Admin: 12/24/18 06:26 Dose: 150 mcg Lidocaine (Lidoderm Patch -) 1 patch TP DAILY [facility] Last Admin: 12/24/18 09:15 Dose: 1 patch Losartan Potassium (Cozaar -) 50 mg PO DAILY [facility] Last Admin: 12/24/18 09:15 Dose: Not Given Methylprednisolone Sodium Succinate (Solu-Medrol -) 40 mg IVPUSH DAILY [facility] Last Admin: 12/24/18 09:14 Dose: 40 mg Metoprolol Succinate (Toprol Xl -) 100 mg PO DAILY [facility] Last Admin: 12/24/18 09:15 Dose: Not Given Miscellaneous (Lidoderm Patch Removal) 1 each MC DAILY@2200 [facility] Last Admin: 12/23/18 23:25 Dose: 1 each Pantoprazole Sodium (Protonix -) 40 mg PO DAILY [facility] Last Admin: 12/24/18 09:15 Dose: 40 mg A/P Pneumonia Sepsis Acute on Chronic Renal Failure HTN DM Hypothyroidism Morbid Obesity - can likely d/c antibiotics or change to PO - will d/c steroids - inhaled bronchodilators as needed - O2 to keep SpO2 >90% - DVT prophylaxis - d/c planning
[2018-12-24] MEDS ORDERED: DEXTROSE 5%-WATER 100 ML IVPB ONE (11:24)
[2018-12-24] MEDS: CEFTRIAXONE 2 GM in DEXTROSE 5%-WATER 100 ML IVPB SCH (11:43)
[2018-12-24] MEDS: ACETAMINOPHEN 325 MG TABLET (FP) PO PRN (12:47)
[2018-12-24 14:37] VITALS: BP 149/84; PULSE 78; TEMP 98.5
--- NOTE | 2018-12-24 15:34 | DS ---
Physical Examination Vital Signs: Vital Signs Temperature 98.5 F 12/24/18 14:00 Pulse Rate 78 12/24/18 14:00 Respiratory Rate 20 12/24/18 14:00 Blood Pressure 149/84 12/24/18 14:00 O2 Sat by Pulse Oximetry (%) 99 12/24/18 14:33 Findings/Remarks: Laboratory Results - last 24 hr 12/23/18 12/23/18 12/23/18 17:10 22:39 23:53 POC Glucometer 277 52 136 12/24/18 12/24/18 12/24/18 06:19 07:04 11:54 POC Glucometer 47 86 96 Active Medications Generic Name Dose Route Start Last Admin Trade Name Freq PRN Reason Stop Dose Admin Acetaminophen 650 mg 12/14/18 08:00 12/24/18 12:47 Tylenol - PO 650 mg Q6H PRN Administration PAIN Albuterol Sulfate 1 amp 12/16/18 14:00 12/24/18 13:02 Ventolin 0.083% Nebulizer Soln - NEB 1 amp RTID PAULA Administration Amlodipine Besylate 5 mg 12/19/18 10:00 12/24/18 09:15 Norvasc - PO Not Given DAILY PAULA Atorvastatin Calcium 40 mg 12/13/18 22:00 12/23/18 23:20 Lipitor - PO 40 mg HS PAULA Administration Furosemide 40 mg 12/14/18 06:00 12/24/18 13:49 Lasix - PO 40 mg BIDLASIX PAUAL Administration Guaifenesin 10 ml 12/18/18 13:42 12/19/18 14:38 Robitussin - PO 10 ml Q8H PRN Administration COUGH Heparin Sodium (Porcine) 5,000 unit 12/13/18 22:00 12/24/18 13:48 Heparin - SQ 5,000 unit TID PAULA Administration Azithromycin 500 mg in 250 mls @ 250 mls/hr 12/14/18 10:00 12/24/18 09:14 Zithromax 500mg Ivpb (Pre-Docked) IVPB 250 mls/hr DAILY PAULA Administration Ceftriaxone Sodium 2 gm/ 100 mls @ 100 mls/hr 12/18/18 10:00 12/24/18 11:43 Dextrose IVPB 100 mls/hr DAILY PAULA Administration Protocol Insulin Aspart 1 vial 12/13/18 22:00 12/24/18 11:59 Novolog Vial Sliding Scale - SQ Not Given ACHS PAULA Protocol Insulin Detemir 36 units 12/13/18 22:00 12/23/18 23:58 Levemir Vial SQ 36 units HS PAULA Administration Insulin Detemir 40 units 12/14/18 07:00 12/24/18 08:30 Levemir Vial SQ 40 units AM PAULA Administration Lactic Acid 1 applic 12/19/18 07:23 Lac-Hydrin 12 TP DAILY PRN DRY SKIN Levothyroxine Sodium 150 mcg 12/14/18 07:00 12/24/18 06:26 Synthroid - PO 150 mcg AM PAULA Administration Lidocaine 1 patch 12/13/18 21:00 12/24/18 09:15 Lidoderm Patch - TP 1 patch DAILY PAULA Administration Losartan Potassium 50 mg 12/17/18 14:30 12/24/18 09:15 Cozaar - PO Not Given DAILY PAULA Metoprolol Succinate 100 mg 12/14/18 10:00 12/24/18 09:15 Toprol Xl - PO Not Given DAILY PAULA Miscellaneous 1 each 12/13/18 22:00 12/23/18 23:25 Lidoderm Patch Removal MC 1 each DAILY@2200 PAULA Administration Pantoprazole Sodium 40 mg 12/15/18 10:00 12/24/18 09:15 Protonix - PO 40 mg DAILY PAULA Administration Microbiology 12/13/18 15:48 Blood - Peripheral Venous Blood Culture - Final NO GROWTH AFTER 5 DAYS INCUBATION 12/13/18 15:48 Blood - Peripheral Venous Blood Culture - Final NO GROWTH AFTER 5 DAYS INCUBATION 12/16/18 12:00 Urine For Antigen Detection Legionella Antigen - Final 12/16/18 12:00 Urine For Antigen Detection Streptococcus pneumoniae Antigen (M - Final 12/13/18 22:50 Sputum - Expectorated Gram Stain - Final 12/13/18 22:50 Sputum - Expectorated Sputum Culture - Final NORMAL RESPIRATORY AMAYA Constitutional: Yes: No Distress, Calm Eyes: Yes: Conjunctiva Clear HENT: Yes: Atraumatic Cardiovascular: Yes: Regular Rate and Rhythm Respiratory: Yes: Regular, Diminished Gastrointestinal: Yes: Normal Bowel Sounds, Soft, Abdomen, Obese Musculoskeletal: Yes: WNL Extremities: Yes: WNL Edema: No Neurological: Yes: Alert, Oriented Psychiatric: Yes: Alert, Oriented Labs: CBC, BMP 12/21/18 08:15 12/23/18 07:10 Discharge Summary Problems reviewed: Yes Reason For Visit: COPD, PNEUMONIA Current Active Problems COPD (chronic obstructive pulmonary disease) (Acute) Pneumonia (Acute) Hospital Course: 48 F with PMH significant for COPD, CHF (preserved EF), FLORES (uses CPAP every night), IDDM, CKD stage 4, hypothyroidism, who presents today with 2 days of worsening of shortness of breath. Patient began having ear pain and rhinorrhea 2 days ago. She developed a cough, and required using her home oxygen at 3L yesterday. She describes her cough as being occasionally productive with clear phlegm. She has had fever and chills at home without temperature measurements, and endorse chest pain in the mid-sternum. She went to see her PCP in the morning who prescribed her antibiotics that she was not able to fill the prescription for in the morning. She denies any smokers in the house and being exposed to any smoke; denies any sick contacts; any change in diet or habits. She has has had similar symptoms when she has had other admissions to hospitals. Denies any chest pain, any abdominal pain, any nausea/vomiting/ diarrhea, dysuria, hematuria. ER course was notable for: (1)EKG was done which showed Sinus Tachy, without any ST changes as compared to prior EKG. QTC was 490 (2)Chest x-ray was done which did not show any lobar consolidation or infiltrate , but had vascular congestion. (3)Ceftriaxone 1 gram, vibramycin 100 mg given, tylenol 975 mg given, solumedrol 125 given, magnesium 2 grams given. Patient was evaluated by ID and started on IV antibiotic. Responded well to antibiotic therapy and changed to PO antibiotics. Condition: Stable - Instructions Diet, Activity, Other Instructions: Follow up with PMD in 1 week of discharge follow up with Pulmonary Dr Delgado in 2 weeks post discharge continue with antibiotics as prescribed: Ceftin 500mg BID x 7 days low Na/diabetic diet return to ER if develop respiratory distress, chest pain, severe pain Referrals: Anirudh Delgado MD [Staff Physician] - Samuel Levine [Primary Care Provider] - Disposition: HOME - Home Medications Comprehensive Discharge Medication List: Ambulatory Orders Atorvastatin Ca [Lipitor] 40 mg PO HS #30 tablet 11/22/18 Cetirizine HCl [Zyrtec -] 10 mg PO DAILY 12/13/18 Ferrous Sulfate 325 mg PO DAILY 12/13/18 Furosemide [Lasix] 40 mg PO BID 12/13/18 Hydrochlorothiazide [Hctz -] 25 mg PO DAILY 12/13/18 Insulin Degludec [Tresiba Flextouch U-200] 55 units SQ DAILY 12/13/18 Insulin Lispro [Humalog] 36 unit SQ HS 12/13/18 Insulin Lispro [Humalog] 40 unit SQ AM 12/13/18 Levothyroxine [Synthroid -] 150 mcg PO DAILY 12/13/18 Lisinopril [Prinivil -] 40 mg PO DAILY 12/13/18 Metoprolol Tartrate [Lopressor] 100 mg PO DAILY 12/13/18 Semaglutide [Ozempic] 1 mg SQ WEEKLY 12/13/18 Ammonium Lactate Lotion [Lac-Hydrin 12] 1 applic TP DAILY PRN #1 bottle Cefuroxime Axetil [Ceftin -] 500 mg PO BID 7 Days #14 tablet 12/24/18 Guaifenesin [Robitussin -] 10 ml PO Q8H PRN #1 bottle 12/24/18 Lidocaine 5% Patch [Lidoderm -] 1 patch TP DAILY #30 patch 12/24/18 Losartan Potassium [Cozaar -] 50 mg PO DAILY #30 tablet 12/24/18 Pantoprazole Sodium [Protonix -] 40 mg PO DAILY #30 tablet.ec 12/24/18
--- NOTE | 2018-12-24 17:23 | PN ---
Progress Note, Physician History of Present Illness: Pt feels well. She is eager to go home. - Objective Vital Signs: Vital Signs Temperature 98.5 F 12/24/18 14:00 Pulse Rate 78 12/24/18 14:00 Respiratory Rate 20 12/24/18 14:00 Blood Pressure 149/84 12/24/18 14:00 O2 Sat by Pulse Oximetry (%) 99 12/24/18 14:33 Constitutional: Yes: Calm Eyes: Yes: Conjunctiva Clear HENT: Yes: Atraumatic Cardiovascular: Yes: S1, S2 Respiratory: Yes: CTA Bilaterally Gastrointestinal: Yes: Soft Genitourinary: Yes: WNL Musculoskeletal: Yes: WNL Extremities: Yes: WNL Edema: No Integumentary: Yes: WNL Neurological: Yes: Oriented Psychiatric: Yes: Oriented Labs: CBC, BMP 12/21/18 08:15 12/23/18 07:10 Problem List - Problems (1) COPD (chronic obstructive pulmonary disease) Code(s): J44.9 - CHRONIC OBSTRUCTIVE PULMONARY DISEASE, UNSPECIFIED Qualifiers: COPD type: unspecified COPD Qualified Code(s): J44.9 - Chronic obstructive pulmonary disease, unspecified (2) Pneumonia Code(s): J18.9 - PNEUMONIA, UNSPECIFIED ORGANISM Qualifiers: Pneumonia type: due to unspecified organism Lung location: unspecified part of lung (3) REBEKAH (acute kidney injury) Code(s): N17.9 - ACUTE KIDNEY FAILURE, UNSPECIFIED (4) BMI 50.0-59.9, adult Code(s): Z68.43 - BODY MASS INDEX (BMI) 50.0-59.9, ADULT (5) CHF (congestive heart failure) Code(s): I50.9 - HEART FAILURE, UNSPECIFIED (6) CKD (chronic kidney disease) Code(s): N18.9 - CHRONIC KIDNEY DISEASE, UNSPECIFIED Assessment/Plan Impression 1. CKD 2. REBEKAH 3. morbid obesity 4. hx of bariatric surgery 5. DM 6. HTN 7. hypothyroidism 8. ovarian cyst 9. PNA Plan - no new labs - will see in office - no acute change in management - avoid nsaids - discussed low potassium diet
== END 2018-12-24 16:37 | disposition home health service (06) | DRG 194 ==
LOC: JER 13:53 → JERBED 17:15 → J8W 18:16
PROVIDERS: ADMIT Internal Medicine; ATTEND Family Medicine
DX: I13.0 Hypertensive heart and chronic kidney disease with heart failure and stage 1 through stage 4 chronic kidney disease, or unspecified chronic kidney disease (principal); J18.9 Pneumonia, unspecified organism; N17.9 Acute kidney failure, unspecified; J44.1 Chronic obstructive pulmonary disease with (acute) exacerbation; I50.33 Acute on chronic diastolic (congestive) heart failure; N18.4 Chronic kidney disease, stage 4 (severe); E66.01 Morbid (severe) obesity due to excess calories; Z68.43 Body mass index [BMI] 50.0-59.9, adult; E11.22 Type 2 diabetes mellitus with diabetic chronic kidney disease; E03.9 Hypothyroidism, unspecified; Z79.4 Long term (current) use of insulin; G47.33 Obstructive sleep apnea (adult) (pediatric); M54.5 Low back pain; E78.5 Hyperlipidemia, unspecified; E78.00 Pure hypercholesterolemia, unspecified; N83.209 Unspecified ovarian cyst, unspecified side
CPT/HCPCS: 36415; 36600; 71046-TC-FY; 80048; 80053; 81003; 82550; 82553; 82803; 82962; 83036; 83735; 83880; 84100; 84443; 84484; 84703; 85025; 85027; 85730; 87040; 87070; 87205; 87804; 87899; 93005; 93010; 94640; 94660; 97116-GP; 97161-GP; 99284-25; J1644

== ENCOUNTER 2019-03-13 08:02 | Inpatient (IN) | payer OTHER ==
[2019-03-13 09:05] LABS: BASO % 0.8 % (0-2.0); EOS % 1.9 % (0-4.5); HEMATOCRIT 28.9 % (32.4-45.2); HEMOGLOBIN 9.7 GM/dL (10.7-15.3); LYMPH % 16.7 % (8-40); MCH 29.8 pg (25.7-33.7); MCHC 33.5 g/dl (32.0-36.0); MEAN CELL VOLUME 89.1 fl (80-96); MEAN PLT VOLUME 9.8 fl (7.5-11.1); MONO % 7.1 % (3.8-10.2); NEUT % 73.5 % (42.8-82.8); PLATELET COUNT 223 K/MM3 (134-434); RBC 3.25 M/mm3 (3.60-5.2); RDW 13.8 % (11.6-15.6); WHITE BLOOD COUNT 10.4 K/mm3 (4.0-10.0)
--- NOTE | 2019-03-13 09:27 | PDOC ---
History of Present Illness - General Chief Complaint: Shortness of Breath Stated Complaint: SOB Time Seen by Provider: 03/13/19 08:15 - History of Present Illness Initial Comments: Sania Link is a 49yo woman with a PMH of HTN, HLD, COPD (no history of intubations, has been admitted to ICU in the past, chronic orthopnea), IDDM, CKD, REBEKAH, morbid obesity, hyperkalemia, ovarian cyst, hypothyroidism, sleep apnea (wears CPAP at night at home) who presents with cough and SOB since yesterday. She tried using her home nebulizer without any improvement in symptoms. She denies any fevers, chills, or chest pain and reports taking her home meds including a diuretic without any recent missed doses. She notes that she has LE edema at baseline, and there has been no change recently. She endorses needing BiPAP in the past, and today's symptoms feel similar. She denies any sick contacts, recent fevers, travel, congestion, change in her weight, new orthopnea, or other recent symptoms. Ms Link reports that she did get a flu shot in October. She sees Dr Levine (PMD), Donell (cards), Mellissa (pulm) and Catrachita (neph). Per EMS, her sats were in the 90's on a non-rebreather. Past History - Past Medical History Allergies/Adverse Reactions: Allergies Allergy/AdvReac Type Severity Reaction Status Date / Time No Known Allergies Allergy Verified 03/13/19 08:18 Home Medications: Ambulatory Orders Atorvastatin Ca [Lipitor] 40 mg PO HS #30 tablet 11/22/18 Cetirizine HCl [Zyrtec -] 10 mg PO DAILY 12/13/18 Ferrous Sulfate 325 mg PO DAILY 12/13/18 Furosemide [Lasix] 40 mg PO BID 12/13/18 Hydrochlorothiazide [Hctz -] 25 mg PO DAILY 12/13/18 Insulin Degludec [Tresiba Flextouch U-200] 55 units SQ DAILY 12/13/18 Insulin Lispro [Humalog] 36 unit SQ HS 12/13/18 Insulin Lispro [Humalog] 40 unit SQ AM 12/13/18 Levothyroxine [Synthroid -] 150 mcg PO DAILY 12/13/18 Lisinopril [Prinivil -] 40 mg PO DAILY 12/13/18 Metoprolol Tartrate [Lopressor] 100 mg PO DAILY 12/13/18 Semaglutide [Ozempic] 1 mg SQ WEEKLY 12/13/18 Ammonium Lactate Lotion [Lac-Hydrin 12] 1 applic TP DAILY PRN #1 bottle 12/24/18 Cefuroxime Axetil [Ceftin -] 500 mg PO BID 7 Days #14 tablet 12/24/18 Guaifenesin [Robitussin -] 10 ml PO Q8H PRN #1 bottle 12/24/18 Lidocaine 5% Patch [Lidoderm -] 1 patch TP DAILY #30 patch 12/24/18 Losartan Potassium [Cozaar -] 50 mg PO DAILY #30 tablet 12/24/18 Pantoprazole Sodium [Protonix -] 40 mg PO DAILY #30 tablet.ec 12/24/18 Anemia: No Asthma: Yes Cardiac Disorders: Yes (SOB) COPD: Yes Dementia: No Diabetes: Yes GI Disorders: Yes HTN: Yes Hypercholesterolemia: Yes Seizures: No Thyroid Disease: Yes - Surgical History Abdominal Surgery: (gastric sleeve) - Psycho Social/Smoking Cessation Hx Smoking History: Unknown if ever smoked Have you smoked in the past 12 months: No Hx Alcohol Use: No Drug/Substance Use Hx: No Substance Use Type: Alcohol Hx Substance Use Treatment: No Review of Systems - Review of Systems Comments:: General: No fevers, no chills, no weight or appetite change, no malaise HEENT: No changes in vision, no changes in hearing, no congestion, no sore throat CV: No chest pain, no palpitations, + chronic LE edema, +chronic orthopnea Pulm: See HPI GI: No nausea or vomiting, no change in bowel habits, no melena : No frequency, no urgency, no dysuria Musc: No back pain, no joint swelling, no recent injury Skin: No rash, no lesions, no erythema Endo: No excessive thirst, no heat/cold intolerance Heme: No unusual bruising or bleeding, no swollen glands Neuro: No syncope, no numbness/tingling, no focal weakness Vasc: No claudication Psych: No recent change in mood, no SI or HI *Physical Exam - Vital Signs Last Vital Signs Temp Pulse Resp BP Pulse Ox 98.5 F 95 H 33 H 129/79 79 L 03/13/19 08:05 03/13/19 08:05 03/13/19 08:05 03/13/19 08:05 03/13/19 08:05 - Physical Exam General: Uncomfortable, moderate respiratory distress. Morbidly obese HEENT: Atraumatic, PERRL, EOMI, MMM, voice normal Cards: Mildly tachycardic, regular, no murmur appreciated Pulm: Tachypnic, labored breathing on RA. No wheezing or crackles but very distant breath sounds secondary to habitus. Frequent cough Abd: Soft, nontender, nondistended Ext: Atraumatic. 3+ BLE pitting edema. WWP Skin: Normal color, no rashes or lesions Neuro: A&Ox3, CN grossly intact, normal speech, motor/sensory grossly intact and symmetric Psych: Mood appropriate to situation ED Treatment Course - LABORATORY CBC & Chemistry Diagram: 03/13/19 08:23 03/13/19 08:23 - RADIOLOGY Radiology Studies Ordered: Category Date Time Status CHEST X-RAY PORTABLE* [RAD] Stat Radiology 03/13/19 08:22 Ordered Medical Decision Making - Medical Decision Making 03/13/19 08:36 Sania Link is a 49yo woman with a PMH of HTN, HLD, COPD (no history of intubations, has been admitted to ICU in the past, chronic orthopnea), IDDM, CKD, REBEKAH, morbid obesity, hyperkalemia, ovarian cyst, hypothyroidism, sleep apnea (wears CPAP at night at home) who presents with respiratory distress, reporting SOB and cough since yesterday. - Sats aroun 80% on RA. Improved to 85% with O2 by NC, but pt still tachypnic w/ labored breathing. BiPAP ordered. - Most likely CHF v COPD exacerbation, but cannot r/o pneumonia or other respiratory infection. - CBC, CMP, EKG, trop, portable CXR, BNP, blood cultures, lactate, ABG 03/13/19 09:44 - CXR reviewed. B/l congestive changes and edema. No focal consolidation appreciated - Labs pending - Will give 40mg IV lasix for suspected CHF exacerbation 03/13/19 10:19 - Labs reviewed. Slight leukocytosis to 10.4, otherwise unremarkable - ABG notable for O2 67.4, very low considering pt was on BiPAP when drawn. BE 05.6, bicarb 19.6. CO2 40, not elevated - BNP not resulted. Calling lab - Spoke to Aleksandar Meyer. Will admit to telemetry Discussed with Dr Warner Novoa PGY2 Discharge - Discharge Information Problems reviewed: Yes Clinical Impression/Diagnosis: Hypoxemia requiring supplemental oxygen CHF (congestive heart failure) Qualifiers: Heart failure type: unspecified Heart failure chronicity: acute on chronic Qualified Code(s): I50.9 - Heart failure, unspecified Condition: Fair - Admission Yes - Follow up/Referral - Patient Discharge Instructions - Post Discharge Activity
--- NOTE | 2019-03-13 09:35 | PDOC ---
Attending Attestation - Resident Resident Name: SommerAngela - ED Attending Attestation I have performed the following: I have examined & evaluated the patient, The case was reviewed & discussed with the resident, I agree w/resident's findings & plan - HPI HPI: 03/13/19 09:21 49-year-old female with multiple medical problems including COPD on home O2, FLORES on CPAP at night, morbid obesity, CHF, insulin-dependent diabetes status post admission in December 2018 for COPD exacerbation and pneumonia presents now with cough and increasing shortness of breath since last night, no fevers or chills or chest pain. - Physicial Exam PE: 03/13/19 09:22 Hypoxic, tachypneic, tachycardic, BP and temp normal alert seated upright on bipap, eyes open and conversant no jvd bibasilar crackles/wheeze abd benign marked b/l edema neuro nonfocal - Critical Care Time Total Critical Care Time: 70 Critical Care Statement: The care of this patient involved high complexity decision making to prevent further life threatening deterioration of the patient's condition and/or to evaluate & treat vital organ system(s) failure or risk of failure. - Medical Decision Making 03/13/19 09:35 49y/o F multiple comorbidities p/w SOB/cough since last night, acute hypoxic respiratory distress with crackles. presentation c/w CHF exacerbation. recurrence of copd/pna also on ddx given recent similar admission. sepsis protocol initiated bipap, ekg, cxr nebs, diurese abg close monitoring. will need admission, possible icu 03/13/19 11:38 Baseline anemia, ABG with hypoxia but no hypercapnia, baseline renal insufficiency, chest x-ray with congestion and possible superimposed infiltrate. Patient diuresed, treated empirically for healthcare associated pneumonia Comfortable on BiPAP Admitted Heart Score/ECG Review #1 ECG reviewed & interpreted by me at: 08:47 General ECG Interpretation: Sinus Rhythm, Normal Rate (92), Normal Intervals (qtc 474), No acute ischemic changes Compared to previous ECG there are: No significant change (c/w 12/20/18)
[2019-03-13 09:51] LABS: ARTERIAL BLD GAS O2 SATURATION 92.2 % (95-98); ARTERIAL BLOOD GAS BASE EXCESS -5.6 meq/l (-2-2); ARTERIAL BLOOD GAS PO2 67.4 mmHg (80-100); ARTERIAL BLOOD GAS pH 7.31 (7.35-7.45); CARBOXYHEMOGLOBIN 1.1 % (0-2)
[2019-03-13 09:52] LABS: ALLENS TEST POSITIVE
[2019-03-13 09:58] LABS: ALBUMIN 3.6 g/dl (3.4-5.0); BILIRUBIN,TOTAL 0.2 mg/dL (0.2-1); BLOOD UREA NITROGEN 48.4 mg/dL (7-18); CALCIUM 8.4 mg/dL (8.5-10.1); CREATININE 2.9 mg/dL (0.55-1.3); POTASSIUM 4.7 mmol/L (3.5-5.1); TOT PROT 7.6 g/dl (6.4-8.2)
--- NOTE | 2019-03-13 10:43 | HP ---
Admitting History and Physical - Primary Care Physician PCP: Samuel Levine - Admission Chief Complaint: SOB, Cough History of Present Illness: Patient is a 49 y/o female with past medical history of COPD, HTN, HLD, IDDM, CKD, Hyperkalemia, Morbid Obesity, Ovarian Cyst, Hyperthyroidism, Sleep Apnea. Patient presented to ER with complaints of SOB and cough which began at night. She has been compliant with her medication regimen and was using nebulizer last night with no relief. She denies fevers, chills, chest pain, or dizziness. History Source: Patient Limitations to Obtaining History: No Limitations - Past Medical History Cardiovascular: Yes: HTN, Hyperlipdemia Pulmonary: Yes: Bronchitis, COPD, Pneumonia, Sleep Apnea Renal/: Yes: Renal Inusuff ...LMP: 08/12/18 Musculoskeletal: Yes: Chronic low back pain Endocrine: Yes: Diabetes Mellitus, Hypothyroidism - Past Surgical History Past Surgical History: Yes: Bariatric Surgery - Smoking History Smoking history: Unknown if ever smoked Have you smoked in the past 12 months: No - Alcohol/Substance Use Hx Alcohol Use: No - Social History ADL: Independent History of Recent Travel: No Home Medications - Allergies Allergies/Adverse Reactions: Allergies Allergy/AdvReac Type Severity Reaction Status Date / Time No Known Allergies Allergy Verified 03/13/19 08:18 - Home Medications Home Medications: Ambulatory Orders Atorvastatin Ca [Lipitor] 40 mg PO HS #30 tablet 11/22/18 Cetirizine HCl [Zyrtec -] 10 mg PO DAILY 12/13/18 Ferrous Sulfate 325 mg PO DAILY 12/13/18 Furosemide [Lasix] 40 mg PO BID 12/13/18 Hydrochlorothiazide [Hctz -] 25 mg PO DAILY 12/13/18 Insulin Degludec [Tresiba Flextouch U-200] 55 units SQ DAILY 12/13/18 Insulin Lispro [Humalog] 36 unit SQ HS 12/13/18 Insulin Lispro [Humalog] 40 unit SQ AM 12/13/18 Levothyroxine [Synthroid -] 150 mcg PO DAILY 12/13/18 Lisinopril [Prinivil -] 40 mg PO DAILY 12/13/18 Metoprolol Tartrate [Lopressor] 100 mg PO DAILY 12/13/18 Semaglutide [Ozempic] 1 mg SQ WEEKLY 12/13/18 Ammonium Lactate Lotion [Lac-Hydrin 12] 1 applic TP DAILY PRN #1 bottle Cefuroxime Axetil [Ceftin -] 500 mg PO BID 7 Days #14 tablet 12/24/18 Guaifenesin [Robitussin -] 10 ml PO Q8H PRN #1 bottle 12/24/18 Lidocaine 5% Patch [Lidoderm -] 1 patch TP DAILY #30 patch 12/24/18 Losartan Potassium [Cozaar -] 50 mg PO DAILY #30 tablet 12/24/18 Pantoprazole Sodium [Protonix -] 40 mg PO DAILY #30 tablet.ec 12/24/18 Review of Systems - Review of Systems Constitutional: reports: No Symptoms Eyes: reports: No Symptoms HENT: reports: No Symptoms Neck: reports: No Symptoms Cardiovascular: reports: Shortness of Breath Respiratory: reports: Cough, Orthopnea, SOB, SOB on Exertion Gastrointestinal: reports: No Symptoms Genitourinary: reports: No Symptoms Breasts: reports: No Symptoms Reported Musculoskeletal: reports: No Symptoms Integumentary: reports: No Symptoms Neurological: reports: No Symptoms Endocrine: reports: No Symptoms Hematology/Lymphatic: reports: No Symptoms Psychiatric: reports: No Symptoms Physical Examination Vital Signs: Vital Signs Temperature 98.5 F 03/13/19 08:05 Pulse Rate 90 03/13/19 09:11 Respiratory Rate 22 H 03/13/19 09:11 Blood Pressure 128/78 03/13/19 09:11 O2 Sat by Pulse Oximetry (%) 96 03/13/19 09:11 Constitutional: Yes: No Distress, Calm, Obese Eyes: Yes: Conjunctiva Clear HENT: Yes: Atraumatic Cardiovascular: Yes: Tachycardia Respiratory: Yes: Regular, Accessory Muscle Use, Cough, On BiPap, Rhonchi, SOB, SOB on Exertion Gastrointestinal: Yes: Normal Bowel Sounds, Soft, Abdomen, Obese Musculoskeletal: Yes: Muscle Weakness Extremities: Yes: WNL Edema: Yes Edema: LLE: Trace, RLE: Trace Neurological: Yes: Alert, Oriented Psychiatric: Yes: Alert, Oriented Labs: CBC, BMP 03/13/19 08:23 03/13/19 08:23 Imaging - Results Chest X-ray: Report Reviewed Problem List - Problems (1) Acute respiratory failure with hypoxemia Assessment/Plan: -Pulmonary consult -CXR shows large heart with fullness of the tasneem and progressive congestive changes with possible superimposed bilateral infiltrates -Bipap -keep SpO2 >90% -bronchodilators -BNP 1204.3 -aspiration precaution -Furosemide BID Code(s): J96.01 - ACUTE RESPIRATORY FAILURE WITH HYPOXIA (2) CHF (congestive heart failure) Assessment/Plan: -Pulmonary and Cardiology consult -CXR shows large heart with fullness of the tasneem and progressive congestive changes with possible superimposed bilateral infiltrates -Bipap -keep SpO2 >90% -bronchodilators -BNP 1204.3 -aspiration precaution -Furosemide BID -strict I&O -daily weights -1L fluid restriction Code(s): I50.9 - HEART FAILURE, UNSPECIFIED Qualifiers: Heart failure type: unspecified Heart failure chronicity: acute on chronic Qualified Code(s): I50.9 - Heart failure, unspecified (3) Hypoxemia requiring supplemental oxygen Assessment/Plan: -Pulmonary consult -CXR shows large heart with fullness of the tasneem and progressive congestive changes with possible superimposed bilateral infiltrates -Bipap -keep SpO2 >90% -bronchodilators -BNP 1204.3 -aspiration precaution -Furosemide BID Code(s): R09.02 - HYPOXEMIA; Z99.81 - DEPENDENCE ON SUPPLEMENTAL OXYGEN (4) CKD (chronic kidney disease) Assessment/Plan: -BUN/Cr 48.4/2.9 -Renal consult -monitor renal function Code(s): N18.9 - CHRONIC KIDNEY DISEASE, UNSPECIFIED (5) COPD (chronic obstructive pulmonary disease) Assessment/Plan: -Pulmonary consult -CXR shows large heart with fullness of the tasneem and progressive congestive changes with possible superimposed bilateral infiltrates -Bipap -keep SpO2 >90% -bronchodilators -aspiration precaution Code(s): J44.9 - CHRONIC OBSTRUCTIVE PULMONARY DISEASE, UNSPECIFIED Qualifiers: COPD type: unspecified COPD Qualified Code(s): J44.9 - Chronic obstructive pulmonary disease, unspecified (6) Diabetes mellitus Assessment/Plan: -BGM ACHS -ISS -HgA1c -Dietary consult -diabetic diet Code(s): E11.9 - TYPE 2 DIABETES MELLITUS WITHOUT COMPLICATIONS Qualifiers: Diabetes mellitus type: type 2 (7) HLD (hyperlipidemia) Assessment/Plan: -Atorvastatin Code(s): E78.5 - HYPERLIPIDEMIA, UNSPECIFIED (8) HTN (hypertension) Assessment/Plan: -Losartan, Metoprolol -low Na diet Code(s): I10 - ESSENTIAL (PRIMARY) HYPERTENSION (9) Hyperkalemia Assessment/Plan: -K 4.7 -monitor electrolyte daily -repelete as needed -Renal consult Code(s): E87.5 - HYPERKALEMIA (10) Hypothyroid Assessment/Plan: -Levothyroxine Code(s): E03.9 - HYPOTHYROIDISM, UNSPECIFIED (11) Morbid (severe) obesity due to excess calories Assessment/Plan: -Dietary consult Code(s): E66.01 - MORBID (SEVERE) OBESITY DUE TO EXCESS CALORIES Assessment/Plan see problem list dvt ppx
--- NOTE | 2019-03-13 11:32 | CON.CARD ---
Consult Consult Specialty:: Cardiology Referred by:: Augustina Reason for Consultation:: SOB - History of Present Illness Chief Complaint: SOB History of Present Illness: 49year oldwoman with pmh HTN, DMII, morbid obesity, CKD adm [facility] for elective gastric sleeve 10/30/17 post op BANDAR and uncontrolled HTN, chronic diastolic CHF. She saw pulmonary Dr. Seo 11/13/18 who felt she did not have COPD but that she may have GERD contributing to her symptoms given her h/o bariatric surgery. She presents with worsening SOB. Noted with fluid overload on CXR. Echo 11/15/18 TDS. Grossly normal LV and RV. Mild LA dilatation. Mild MR and mild TR. - History Source History Provided By: Patient, Medical Record - Past Medical History Cardio/Vascular: Yes: HTN, Hyperlipdemia Pulmonary: Yes: Bronchitis, COPD, Pneumonia, Sleep Apnea Renal/: Yes: Renal Inusuff ...LMP: 08/12/18 Musculoskeletal: Yes: Chronic low back pain Endocrine: Yes: Diabetes Mellitus, Hypothyroidism - Past Surgical History Past Surgical History: Yes: Bariatric Surgery - Alcohol/Substance Use Hx Alcohol Use: No - Smoking History Smoking history: Unknown if ever smoked Have you smoked in the past 12 months: No Home Medications - Allergies Allergies/Adverse Reactions: Allergies Allergy/AdvReac Type Severity Reaction Status Date / Time No Known Allergies Allergy Verified 03/13/19 08:18 - Home Medications Home Medications: Ambulatory Orders Atorvastatin Ca [Lipitor] 40 mg PO HS #30 tablet 11/22/18 Cetirizine HCl [Zyrtec -] 10 mg PO DAILY 12/13/18 Ferrous Sulfate 325 mg PO DAILY 12/13/18 Furosemide [Lasix] 40 mg PO BID 12/13/18 Hydrochlorothiazide [Hctz -] 25 mg PO DAILY 12/13/18 Insulin Degludec [Tresiba Flextouch U-200] 55 units SQ DAILY 12/13/18 Insulin Lispro [Humalog] 36 unit SQ HS 12/13/18 Insulin Lispro [Humalog] 40 unit SQ AM 12/13/18 Levothyroxine [Synthroid -] 150 mcg PO DAILY 12/13/18 Lisinopril [Prinivil -] 40 mg PO DAILY 12/13/18 Metoprolol Tartrate [Lopressor] 100 mg PO DAILY 12/13/18 Semaglutide [Ozempic] 1 mg SQ WEEKLY 12/13/18 Ammonium Lactate Lotion [Lac-Hydrin 12] 1 applic TP DAILY PRN #1 bottle Cefuroxime Axetil [Ceftin -] 500 mg PO BID 7 Days #14 tablet 12/24/18 Guaifenesin [Robitussin -] 10 ml PO Q8H PRN #1 bottle 12/24/18 Lidocaine 5% Patch [Lidoderm -] 1 patch TP DAILY #30 patch 12/24/18 Losartan Potassium [Cozaar -] 50 mg PO DAILY #30 tablet 12/24/18 Pantoprazole Sodium [Protonix -] 40 mg PO DAILY #30 tablet.ec 12/24/18 Vital Signs: Vital Signs Temperature 98.5 F 03/13/19 08:05 Pulse Rate 90 03/13/19 09:11 Respiratory Rate 22 H 03/13/19 09:11 Blood Pressure 128/78 03/13/19 09:11 O2 Sat by Pulse Oximetry (%) 96 03/13/19 09:11 Constitutional: Yes: Calm, Obese Eyes: Yes: EOM Intact HENT: Yes: Atraumatic, Normocephalic Neck: Yes: Trachea Midline Respiratory: Yes: Rales (bilat) Gastrointestinal: Yes: Soft, Abdomen, Obese Cardiovascular: Yes: Regular Rate and Rhythm JVD: Yes Carotid Bruit: No PMI: Non-Displaced Heart Sounds: Yes: S1, S2 Extremities: Yes: WNL Edema: Yes - Other Data Labs, Other Data: CBC, BMP 03/13/19 08:23 03/13/19 08:23 Troponin, BNP 03/13/19 08:23 Troponin I < 0.02 Troponin, BNP 03/13/19 08:23 Troponin I < 0.02 Imaging - Results Chest X-ray: Report Reviewed EKG: Report Reviewed Assessment/Plan 49year oldwoman with pmh HTN, DMII, morbid obesity, CKD adm [facility] for elective gastric sleeve 10/30/17 post op BANDAR and uncontrolled HTN, chronic diastolic CHF. She saw pulmonary Dr. Seo 11/13/18 who felt she did not have COPD but that she may have GERD contributing to her symptoms given her h/o bariatric surgery. She presents with worsening SOB. Noted with fluid overload on CXR. Echo 11/15/18 TDS. Grossly normal LV and RV. Mild LA dilatation. Mild MR and mild TR. Acute on chronic diastolic CHF: -no need for repeat echo -Increase diuretics Lasix 80 mg IV bid -renal evaluation. -it is likely that the precipitating cause is renal disease and inability to handle daily salt and fluid load, needs more diuresis and possibly [employer] QUALIFIED if worsens.
[2019-03-13] MEDS ORDERED: FUROSEMIDE 40 MG/4 ML INJECTABLE VIAL ONE (11:50)
[2019-03-13] MEDS ORDERED: FUROSEMIDE 40 MG/4 ML INJECTABLE VIAL IVPUSH ONE ×2 (12:01→12:16)
--- NOTE | 2019-03-13 12:12 | CON.PULM ---
Consult Consult Specialty:: PULM/CCM Referred by:: JOSEPH Reason for Consultation:: SOB - History of Present Illness Chief Complaint: SOB History of Present Illness: 49 F, well known to me from previous admissions and the office. COPD on home O2 (3L NC), OSAS previously on CPAP (has repeat sleep testing this Sunday), morbid obesity, previous bariatric surgery, CHF, insulin-dependent diabetes, and CKD. Admitted via the ER due to severe Respiratory Distress and hypoxemia to 79% on 3 L NC O2. No recent travel history or sick contacts. No fever or chills. No hemoptysis or night sweats. No recent change in medications. Due to acute respiratory distress she required NIPPV support and has clinically improved. She has not yet received her lasix. CXR: Acute Pulmonary edema / bilateral pleural effusions - History Source History Provided By: Patient Limitations to Obtaining History: No Limitations - Past Medical History Cardio/Vascular: Yes: HTN, Hyperlipdemia Pulmonary: Yes: Bronchitis, COPD, O2 Dependent, Pneumonia, Sleep Apnea. No: Asthma, Cancer, Previously Intubated, Pulmonary Embolus, Pulmonary Fibrosis Renal/: Yes: Renal Inusuff ...LMP: 08/12/18 Musculoskeletal: Yes: Chronic low back pain Endocrine: Yes: Diabetes Mellitus, Hypothyroidism - Past Surgical History Past Surgical History: Yes: Bariatric Surgery - Alcohol/Substance Use Hx Alcohol Use: No - Smoking History Smoking history: Unknown if ever smoked Have you smoked in the past 12 months: No Home Medications - Allergies Allergies/Adverse Reactions: Allergies Allergy/AdvReac Type Severity Reaction Status Date / Time No Known Allergies Allergy Verified 03/13/19 08:18 - Home Medications Home Medications: Ambulatory Orders Atorvastatin Ca [Lipitor] 40 mg PO HS #30 tablet 11/22/18 Cetirizine HCl [Zyrtec -] 10 mg PO DAILY 12/13/18 Ferrous Sulfate 325 mg PO DAILY 12/13/18 Furosemide [Lasix] 40 mg PO BID 12/13/18 Hydrochlorothiazide [Hctz -] 25 mg PO DAILY 12/13/18 Insulin Degludec [Tresiba Flextouch U-200] 55 units SQ DAILY 12/13/18 Insulin Lispro [Humalog] 36 unit SQ HS 12/13/18 Insulin Lispro [Humalog] 40 unit SQ AM 12/13/18 Levothyroxine [Synthroid -] 150 mcg PO DAILY 12/13/18 Lisinopril [Prinivil -] 40 mg PO DAILY 12/13/18 Metoprolol Tartrate [Lopressor] 100 mg PO DAILY 12/13/18 Semaglutide [Ozempic] 1 mg SQ WEEKLY 12/13/18 Ammonium Lactate Lotion [Lac-Hydrin 12] 1 applic TP DAILY PRN #1 bottle Cefuroxime Axetil [Ceftin -] 500 mg PO BID 7 Days #14 tablet 12/24/18 Guaifenesin [Robitussin -] 10 ml PO Q8H PRN #1 bottle 12/24/18 Lidocaine 5% Patch [Lidoderm -] 1 patch TP DAILY #30 patch 12/24/18 Losartan Potassium [Cozaar -] 50 mg PO DAILY #30 tablet 12/24/18 Pantoprazole Sodium [Protonix -] 40 mg PO DAILY #30 tablet.ec 12/24/18 Review of Systems - Review of Systems Constitutional: denies: Chills, Fever, Night Sweats Eyes: reports: No Symptoms HENT: reports: No Symptoms Neck: reports: No Symptoms Cardiovascular: reports: Edema, Palpitations, Shortness of Breath. denies: Chest Pain Respiratory: reports: Cough, Orthopnea, PND, Snoring, SOB, SOB on Exertion. denies: Hemoptysis, Wheezing Gastrointestinal: reports: No Symptoms Genitourinary: reports: No Symptoms Breasts: reports: No Symptoms Reported Musculoskeletal: reports: No Symptoms Integumentary: reports: No Symptoms Neurological: reports: No Symptoms Endocrine: reports: No Symptoms Hematology/Lymphatic: reports: No Symptoms Psychiatric: reports: No Symptoms Physical Exam Vital Sings: Vital Signs Temperature 98.5 F 03/13/19 08:05 Pulse Rate 90 03/13/19 09:11 Respiratory Rate 22 H 03/13/19 09:11 Blood Pressure 128/78 03/13/19 09:11 O2 Sat by Pulse Oximetry (%) 96 03/13/19 09:11 Constitutional: Yes: Moderate Distress Eyes: Yes: Conjunctiva Clear, EOM Intact HENT: Yes: Atraumatic, Normocephalic Neck: Yes: Supple, Trachea Midline Cardiovascular: Yes: Tachycardia Respiratory: Yes: Accessory Muscle Use, Cough, Diminished, On BiPap, Rales, Rhonchi, SOB, SOB on Exertion, Tachypnea. No: Stridor, Wheezes ...Inspection: Yes: WNL Gastrointestinal: Yes: Normal Bowel Sounds, Soft, Abdomen, Obese Musculoskeletal: Yes: WNL Extremities: Yes: WNL Edema: Yes Peripheral Pulses WNL: Yes Integumentary: Yes: WNL Neurological: Yes: WNL, Alert, Oriented ...Motor Strength: WNL Psychiatric: Yes: WNL, Alert, Oriented Labs: CBC, BMP 03/13/19 08:23 03/13/19 08:23 ABG Results ABG pH 7.31 (7.35-7.45) L 03/13/19 09:10 ABG pCO2 at Pt Temp 40.0 mmHg (35-45) 03/13/19 09:10 ABG pO2 at Pt Temp 67.4 mmHg (80-100) L 03/13/19 09:10 ABG HCO3 19.6 mmol/L (22-27) L 03/13/19 09:10 ABG O2 Sat (Measured) 92.2 % (95-98) L 03/13/19 09:10 ABG O2 Content 11.2 % vol 03/13/19 09:10 ABG Base Excess -5.6 meq/l (-2-2) L 03/13/19 09:10 Imaging - Results Chest X-ray: Report Reviewed, Image Reviewed Problem List - Problems (1) Acute respiratory failure with hypoxemia Code(s): J96.01 - ACUTE RESPIRATORY FAILURE WITH HYPOXIA (2) CHF (congestive heart failure) Code(s): I50.9 - HEART FAILURE, UNSPECIFIED Qualifiers: Heart failure type: unspecified Heart failure chronicity: acute on chronic Qualified Code(s): I50.9 - Heart failure, unspecified (3) Hypoxemia requiring supplemental oxygen Code(s): R09.02 - HYPOXEMIA; Z99.81 - DEPENDENCE ON SUPPLEMENTAL OXYGEN (4) CKD (chronic kidney disease) Code(s): N18.9 - CHRONIC KIDNEY DISEASE, UNSPECIFIED (5) COPD (chronic obstructive pulmonary disease) Code(s): J44.9 - CHRONIC OBSTRUCTIVE PULMONARY DISEASE, UNSPECIFIED Qualifiers: COPD type: unspecified COPD Qualified Code(s): J44.9 - Chronic obstructive pulmonary disease, unspecified (6) Diabetes mellitus Code(s): E11.9 - TYPE 2 DIABETES MELLITUS WITHOUT COMPLICATIONS Qualifiers: Diabetes mellitus type: type 2 (7) HLD (hyperlipidemia) Code(s): E78.5 - HYPERLIPIDEMIA, UNSPECIFIED (8) HTN (hypertension) Code(s): I10 - ESSENTIAL (PRIMARY) HYPERTENSION (9) Hypercholesteremia Code(s): E78.00 - PURE HYPERCHOLESTEROLEMIA, UNSPECIFIED (10) Hypertension Code(s): I10 - ESSENTIAL (PRIMARY) HYPERTENSION Qualifiers: Hypertension type: unspecified Qualified Code(s): I10 - Essential (primary ) hypertension (11) Hypothyroid Code(s): E03.9 - HYPOTHYROIDISM, UNSPECIFIED (12) Morbid (severe) obesity due to excess calories Code(s): E66.01 - MORBID (SEVERE) OBESITY DUE TO EXCESS CALORIES (13) SOB (shortness of breath) Code(s): R06.02 - SHORTNESS OF BREATH (14) Sleep apnea with use of continuous positive airway pressure (CPAP) Code(s): G47.30 - SLEEP APNEA, UNSPECIFIED (15) Type 2 diabetes mellitus with other diabetic kidney complication Code(s): E11.29 - TYPE 2 DIABETES MELLITUS W OTH DIABETIC KIDNEY COMPLICATION Assessment/Plan NIPPV Support (settings were adjusted) Lasix IVP Daily weight if possible Follow I & O Aspiration precautions Monitor off ABX Monitor off systemic steroids BD TX PRN VTE prophylaxis Renal evaluation 4W / 4S for continuous oximetry and cardiac monitoring Will follow closely Thank you. Dr Malloy
[2019-03-13] MEDS ORDERED: ALBUTEROL SO4 0.083% IH SOL 2.5 MG/3 ML VIAL.NEB. NEB PRN (12:15)
[2019-03-13 13:26] LABS: N-TERMINAL BNP 1204.3 pg/ml (5-125)
[2019-03-13] MEDS ORDERED: FUROSEMIDE 40 MG TABLET (FP) PO SCH (14:00)
--- NOTE | 2019-03-13 14:25 | EKG ---
Test Reason : Blood Pressure : / mmHG Vent. Rate : 092 BPM Atrial Rate : 092 BPM P-R Int : 170 ms QRS Dur : 088 ms QT Int : 384 ms P-R-T Axes : 053 031 012 degrees QTc Int : 474 ms POOR DATA QUALITY, INTERPRETATION MAY BE ADVERSELY AFFECTED NORMAL SINUS RHYTHM NORMAL ECG WHEN COMPARED WITH ECG OF 20-DEC-2018 10:26, NO SIGNIFICANT CHANGE WAS FOUND Confirmed by SACHIN RUANO, MANDY ([id number]) on 03/13/2019 2:24:52 PM Referred By: Confirmed By:MANDY STEPHENSON MD
[2019-03-13] MEDS: ACETAMINOPHEN 325 MG TABLET (FP) PO PRN (16:18)
--- NOTE | 2019-03-13 16:58 | CONSULT ---
Consult Consult Specialty:: Nephrology Reason for Consultation:: CKD - History of Present Illness Chief Complaint: shortness of breath History of Present Illness: Pt is a 49 year old female with pmhx of ckd, chf, htn, obesity and copd who presents to the ER with shortness of breath. She was found to be in fluids overlaod. She has CKD and follows with me. She denies dysuria or hematuria. She takes lasix 40 mg at home. She denies chest pain or palpitations. She denies hematuria or dysuria. She is awake and alert. She felt better with lasix and bipap. - History Source History Provided By: Patient - Past Medical History Cardio/Vascular: Yes: HTN, Hyperlipdemia Pulmonary: Yes: Bronchitis, COPD, Pneumonia, Sleep Apnea Renal/: Yes: Renal Inusuff ...LMP: 08/12/18 ...: No Musculoskeletal: Yes: Chronic low back pain Endocrine: Yes: Diabetes Mellitus, Hypothyroidism - Past Surgical History Past Surgical History: Yes: Bariatric Surgery - Alcohol/Substance Use Hx Alcohol Use: Yes (CASUAL) - Smoking History Smoking history: Unknown if ever smoked Have you smoked in the past 12 months: No Home Medications - Allergies Allergies/Adverse Reactions: Allergies Allergy/AdvReac Type Severity Reaction Status Date / Time No Known Allergies Allergy Verified 03/13/19 08:18 - Home Medications Home Medications: Ambulatory Orders Atorvastatin Ca [Lipitor] 40 mg PO HS #30 tablet 11/22/18 Cetirizine HCl [Zyrtec -] 10 mg PO DAILY 12/13/18 Ferrous Sulfate 325 mg PO DAILY 12/13/18 Furosemide [Lasix] 40 mg PO BID 12/13/18 Hydrochlorothiazide [Hctz -] 25 mg PO DAILY 12/13/18 Insulin Degludec [Tresiba Flextouch U-200] 55 units SQ DAILY 12/13/18 Insulin Lispro [Humalog] 36 unit SQ HS 12/13/18 Insulin Lispro [Humalog] 40 unit SQ AM 12/13/18 Levothyroxine [Synthroid -] 150 mcg PO DAILY 12/13/18 Lisinopril [Prinivil -] 40 mg PO DAILY 12/13/18 Metoprolol Tartrate [Lopressor] 100 mg PO DAILY 12/13/18 Semaglutide [Ozempic] 1 mg SQ WEEKLY 12/13/18 Ammonium Lactate Lotion [Lac-Hydrin 12] 1 applic TP DAILY PRN #1 bottle Cefuroxime Axetil [Ceftin -] 500 mg PO BID 7 Days #14 tablet 12/24/18 Guaifenesin [Robitussin -] 10 ml PO Q8H PRN #1 bottle 12/24/18 Lidocaine 5% Patch [Lidoderm -] 1 patch TP DAILY #30 patch 12/24/18 Losartan Potassium [Cozaar -] 50 mg PO DAILY #30 tablet 12/24/18 Pantoprazole Sodium [Protonix -] 40 mg PO DAILY #30 tablet.ec 12/24/18 Family Medical History Family History: Denies Review of Systems - Review of Systems Constitutional: reports: Malaise Eyes: reports: No Symptoms HENT: reports: No Symptoms Neck: reports: No Symptoms Cardiovascular: reports: Edema, Shortness of Breath Respiratory: reports: SOB on Exertion Genitourinary: reports: No Symptoms Musculoskeletal: reports: No Symptoms Integumentary: reports: No Symptoms Neurological: reports: No Symptoms Endocrine: reports: No Symptoms Hematology/Lymphatic: reports: No Symptoms Psychiatric: reports: No Symptoms Physical Exam Vital Signs: Vital Signs Temperature 100.4 F H 03/13/19 16:22 Pulse Rate 106 H 03/13/19 16:22 Respiratory Rate 28 H 03/13/19 16:22 Blood Pressure 128/63 03/13/19 16:22 O2 Sat by Pulse Oximetry (%) 98 03/13/19 16:08 Constitutional: Yes: Calm Eyes: Yes: Conjunctiva Clear HENT: Yes: Atraumatic Neck: Yes: Supple Cardiovascular: Yes: S1, S2 Respiratory: Yes: On BiPap Gastrointestinal: Yes: Soft, Abdomen, Obese Renal/: Yes: WNL Musculoskeletal: Yes: WNL Edema: Yes Edema: LLE: 2+, RLE: 2+ Neurological: Yes: Oriented Psychiatric: Yes: Oriented Labs: CBC, BMP 03/13/19 08:23 03/13/19 08:23 Imaging - Results Chest X-ray: Report Reviewed Assessment/Plan Current Medications Generic Name Dose Route Start Last Admin Trade Name Freq PRN Reason Stop Dose Admin Acetaminophen 650 mg 03/13/19 16:10 03/13/19 16:18 Tylenol - PO 650 mg Q6H PRN Administration PAIN LEVEL 5-10/FEVER Albuterol Sulfate 1 amp 03/13/19 16:31 Ventolin 0.083% Nebulizer Soln - NEB Q4H PRN SHORT OF BREATH/WHEEZING Atorvastatin Calcium 40 mg 03/13/19 22:00 Lipitor - PO HS PAULA Ferrous Sulfate 325 mg 03/14/19 10:00 Feosol - PO DAILY PAULA Furosemide 80 mg 03/14/19 06:00 Lasix Injection - IVPUSH BIDLASIX PAULA Heparin Sodium (Porcine) 5,000 unit 03/13/19 22:00 Heparin - SQ BID PAULA Hydrochlorothiazide 25 mg 03/14/19 10:00 Hctz - PO DAILY PAULA Levothyroxine Sodium 150 mcg 03/14/19 07:00 Synthroid - PO ACBK PAULA Lidocaine 1 patch 03/14/19 10:00 Lidoderm Patch - TP DAILY PAULA Lisinopril 40 mg 03/14/19 10:00 Prinivil PO DAILY PAULA Loratadine 10 mg 03/14/19 10:00 Claritin - PO DAILY [facility] Losartan Potassium 50 mg 03/14/19 10:00 Cozaar - PO DAILY [facility] Metoprolol Tartrate 100 mg 03/14/19 10:00 Lopressor - PO DAILY [facility] Miscellaneous 1 each 03/14/19 22:00 Lidoderm Patch Removal MC DAILY@2200 [facility] Pantoprazole Sodium 40 mg 03/14/19 10:00 Protonix - PO DAILY PAULA Impression 1. CKD 2. fluid overload 3. morbid obesity 4. hx of bariatric surgery 5. DM 6. HTN 7. hypothyroidism 8. ovarian cyst 9. PNA Plan - cont IV lasix - d/c hctz - repeat labs in am - monitor volume status - d/c lisinopril as she is on losartan - avoid nsaids
[2019-03-13] MEDS: ALBUTEROL SO4 0.083% IH SOL 2.5 MG/3 ML VIAL.NEB. NEB PRN (20:17)
[2019-03-13] MEDS: ATORVASTATIN CA 40 MG TABLET (FP) PO SCH (21:20)
[2019-03-13] MEDS: INSULIN SLIDING SCALE (NOVOLOG) 1 VIAL SQ SCH (21:27)
[2019-03-13] MEDS: HEPARIN NA (PORCINE) 5,000 UNITS/ML 1ML VIAL SQ SCH (21:27)
[2019-03-13] MEDS ORDERED: ATORVASTATIN CA 40 MG TABLET (FP) PO SCH (22:00)
[2019-03-13] MEDS ORDERED: HEPARIN NA (PORCINE) 5,000 UNITS/ML 1ML VIAL SQ SCH (22:00)
[2019-03-13] MEDS ORDERED: FUROSEMIDE 40 MG/4 ML INJECTABLE VIAL IVPUSH SCH (22:00)
[2019-03-14] MEDS: ACETAMINOPHEN 325 MG TABLET (FP) PO PRN ×3 (04:21→22:58)
[2019-03-14] MEDS ORDERED: PT OWN MED DRAWER 7, Y5N ONE (05:46)
[2019-03-14] MEDS: FUROSEMIDE 40 MG/4 ML INJECTABLE VIAL IVPUSH SCH ×2 (05:58→14:58)
[2019-03-14] MEDS ORDERED: FUROSEMIDE 40 MG/4 ML INJECTABLE VIAL IVPUSH SCH (06:00)
[2019-03-14] MEDS: LEVOTHYROXINE NA 150 MCG TABLET PO SCH (06:24)
[2019-03-14] MEDS: INSULIN SLIDING SCALE (NOVOLOG) 1 VIAL SQ SCH ×4 (06:24→21:19)
[2019-03-14] MEDS ORDERED: LEVOTHYROXINE NA 150 MCG TABLET PO SCH (07:00)
[2019-03-14 07:27] LABS: BASO % 0.9 % (0-2.0); EOS % 1.9 % (0-4.5); HEMATOCRIT 27.3 % (32.4-45.2); HEMOGLOBIN 9.1 GM/dL (10.7-15.3); LYMPH % 21.3 % (8-40); MCHC 33.5 g/dl (32.0-36.0); MEAN CELL VOLUME 89.6 fl (80-96); MEAN PLT VOLUME 10.1 fl (7.5-11.1); MONO % 10.5 % (3.8-10.2); NEUT % 65.4 % (42.8-82.8); PLATELET COUNT 211 K/MM3 (134-434); RBC 3.04 M/mm3 (3.60-5.2); RDW 13.7 % (11.6-15.6); WHITE BLOOD COUNT 10.8 K/mm3 (4.0-10.0)
--- NOTE | 2019-03-14 07:31 | PN ---
Progress Note, Physician Chief Complaint: AWAKE ALERT ON CPAP STILL WITH SOB EVENTS AND NOTES REVIEWED - Current Medication List Current Medications: Active Medications Acetaminophen (Tylenol -) 650 mg PO Q6H PRN PRN Reason: PAIN LEVEL 5-10/FEVER Last Admin: 03/14/19 04:21 Dose: 650 mg Albuterol Sulfate (Ventolin 0.083% Nebulizer Soln -) 1 amp NEB Q4H PRN PRN Reason: SHORT OF BREATH/WHEEZING Last Admin: 03/13/19 20:17 Dose: 1 amp Atorvastatin Calcium (Lipitor -) 40 mg PO HS PAULA Last Admin: 03/13/19 21:20 Dose: 40 mg Ferrous Sulfate (Feosol -) 325 mg PO DAILY PAULA Furosemide (Lasix Injection -) 80 mg IVPUSH BIDLASIX [facility] Last Admin: 03/14/19 05:58 Dose: 80 mg Heparin Sodium (Porcine) (Heparin -) 5,000 unit SQ BID PAULA Last Admin: 03/13/19 21:27 Dose: 5,000 unit Insulin Aspart (Novolog Vial Sliding Scale -) 1 vial SQ ACHS [facility]; Protocol Last Admin: 03/14/19 06:24 Dose: Not Given Levothyroxine Sodium (Synthroid -) 150 mcg PO ACBK [facility] Last Admin: 03/14/19 06:24 Dose: 150 mcg Lidocaine (Lidoderm Patch -) 1 patch TP DAILY [facility] Loratadine (Claritin -) 10 mg PO DAILY [facility] Losartan Potassium (Cozaar -) 50 mg PO DAILY [facility] Metoprolol Tartrate (Lopressor -) 100 mg PO DAILY [facility] Miscellaneous (Lidoderm Patch Removal) 1 each MC DAILY@2200 [facility] Pantoprazole Sodium (Protonix -) 40 mg PO DAILY [facility] - Objective Vital Signs: Vital Signs Temperature 98.1 F 03/14/19 06:00 Pulse Rate 93 H 03/14/19 06:00 Respiratory Rate 19 03/14/19 06:00 Blood Pressure 173/92 H 03/14/19 06:00 O2 Sat by Pulse Oximetry (%) 99 03/13/19 21:00 Constitutional: Yes: Mild Distress Cardiovascular: Yes: Regular Rate and Rhythm Respiratory: Yes: Diminished, On BiPap Gastrointestinal: Yes: Soft, Abdomen, Obese Genitourinary: Yes: WNL Musculoskeletal: Yes: WNL Edema: Yes Edema: LLE: 2+, RLE: 2+ Integumentary: Yes: Venous Stasis Changes Wound/Incision: Yes: Other Neurological: Yes: WNL ...Motor Strength: WNL Psychiatric: Yes: WNL Problem List - Problems (1) Acute respiratory failure with hypoxemia Code(s): J96.01 - ACUTE RESPIRATORY FAILURE WITH HYPOXIA (2) CHF (congestive heart failure) Code(s): I50.9 - HEART FAILURE, UNSPECIFIED Qualifiers: Heart failure type: unspecified Heart failure chronicity: acute on chronic Qualified Code(s): I50.9 - Heart failure, unspecified (3) Hypoxemia requiring supplemental oxygen Code(s): R09.02 - HYPOXEMIA; Z99.81 - DEPENDENCE ON SUPPLEMENTAL OXYGEN (4) REBEKAH (acute kidney injury) Code(s): N17.9 - ACUTE KIDNEY FAILURE, UNSPECIFIED (5) Acute respiratory failure with hypoxia and hypercapnia Code(s): J96.01 - ACUTE RESPIRATORY FAILURE WITH HYPOXIA; J96.02 - ACUTE RESPIRATORY FAILURE WITH HYPERCAPNIA (6) BMI 50.0-59.9, adult Code(s): Z68.43 - BODY MASS INDEX (BMI) 50.0-59.9, ADULT (7) CKD (chronic kidney disease) Code(s): N18.9 - CHRONIC KIDNEY DISEASE, UNSPECIFIED (8) COPD (chronic obstructive pulmonary disease) Code(s): J44.9 - CHRONIC OBSTRUCTIVE PULMONARY DISEASE, UNSPECIFIED Qualifiers: COPD type: unspecified COPD Qualified Code(s): J44.9 - Chronic obstructive pulmonary disease, unspecified (9) Diabetes mellitus Code(s): E11.9 - TYPE 2 DIABETES MELLITUS WITHOUT COMPLICATIONS Qualifiers: Diabetes mellitus type: type 2 (10) HLD (hyperlipidemia) Code(s): E78.5 - HYPERLIPIDEMIA, UNSPECIFIED (11) HTN (hypertension) Code(s): I10 - ESSENTIAL (PRIMARY) HYPERTENSION (12) Hypothyroid Code(s): E03.9 - HYPOTHYROIDISM, UNSPECIFIED (13) Sleep apnea with use of continuous positive airway pressure (CPAP) Code(s): G47.30 - SLEEP APNEA, UNSPECIFIED (14) Type 2 diabetes mellitus with other diabetic kidney complication Code(s): E11.29 - TYPE 2 DIABETES MELLITUS W OTH DIABETIC KIDNEY COMPLICATION Assessment/Plan CPAP FOR RESP SUPPORT CONTINUE IV LASIX FOR DECOMPENSATED FLUID OVERLOAD CKD MONITOR LABS DIABETES AND WEIGHT CONTROL D/W PATIENT NUTRITION CONSULT FOR MENU/EDUCATION AWAIT A1C% LAB PENDING DVT PROPHYLAXIS
[2019-03-14 08:06] LABS: ALBUMIN 3.2 g/dl (3.4-5.0); BILIRUBIN,TOTAL 0.4 mg/dL (0.2-1); CALCIUM 8.3 mg/dL (8.5-10.1); CREATININE 2.8 mg/dL (0.55-1.3); MAGNESIUM 2.2 mg/dL (1.8-2.4); N-TERMINAL BNP 1669.4 pg/ml (5-125); POTASSIUM 4.6 mmol/L (3.5-5.1); TOT PROT 7.3 g/dl (6.4-8.2)
--- NOTE | 2019-03-14 08:52 | PN ---
Progress Note (short form) - Note Progress Note: NAD in NIPPV support. Feels less SOB. Minimal dry cough. No CP. No acute events overnight. Intake & Output 03/11/19 03/12/19 03/13/19 03/14/19 23:59 23:59 23:59 23:59 Intake Total 370 Output Total 1000 Balance -630 Weight 321 lb 12.8 oz Last Vital Signs Temp Pulse Resp BP Pulse Ox 98.1 F 93 H 19 173/92 H 98 03/14/19 06:00 03/14/19 06:00 03/14/19 06:00 03/14/19 06:00 03/14/19 08:00 Active Medications Acetaminophen (Tylenol -) 650 mg PO Q6H PRN PRN Reason: PAIN LEVEL 5-10/FEVER Last Admin: 03/14/19 04:21 Dose: 650 mg Albuterol Sulfate (Ventolin 0.083% Nebulizer Soln -) 1 amp NEB Q4H PRN PRN Reason: SHORT OF BREATH/WHEEZING Last Admin: 03/13/19 20:17 Dose: 1 amp Amlodipine Besylate (Norvasc -) 5 mg PO DAILY [facility] Atorvastatin Calcium (Lipitor -) 40 mg PO HS [facility] Last Admin: 03/13/19 21:20 Dose: 40 mg Ferrous Sulfate (Feosol -) 325 mg PO DAILY [facility] Furosemide (Lasix Injection -) 80 mg IVPUSH BIDLASIX [facility] Last Admin: 03/14/19 05:58 Dose: 80 mg Heparin Sodium (Porcine) (Heparin -) 5,000 unit SQ BID [facility] Last Admin: 03/13/19 21:27 Dose: 5,000 unit Insulin Aspart (Novolog Vial Sliding Scale -) 1 vial SQ ACHS [facility]; Protocol Last Admin: 03/14/19 06:24 Dose: Not Given Levothyroxine Sodium (Synthroid -) 150 mcg PO ACBK [facility] Last Admin: 03/14/19 06:24 Dose: 150 mcg Lidocaine (Lidoderm Patch -) 1 patch TP DAILY [facility] Loratadine (Claritin -) 10 mg PO DAILY [facility] Losartan Potassium (Cozaar -) 50 mg PO DAILY [facility] Metoprolol Tartrate (Lopressor -) 100 mg PO DAILY [facility] Miscellaneous (Lidoderm Patch Removal) 1 each [facility] DAILY@2200 [facility] Pantoprazole Sodium (Protonix -) 40 mg PO DAILY [facility] Constitutional: Yes: NAD on NIPPV support Eyes: Yes: Conjunctiva Clear, EOM Intact HENT: Yes: Atraumatic, Normocephalic Neck: Yes: Supple, Trachea Midline Cardiovascular: Yes: Tachycardia Respiratory: Yes: On BiPap, Rales, Rhonchi. No: Stridor, Wheezes ...Inspection: Yes: WNL Gastrointestinal: Yes: Normal Bowel Sounds, Soft, Abdomen, Obese Musculoskeletal: Yes: WNL Extremities: Yes: WNL Edema: Yes Peripheral Pulses WNL: Yes Integumentary: Yes: WNL Neurological: Yes: WNL, Alert, Oriented ...Motor Strength: WNL Psychiatric: Yes: WNL, Alert, Oriented Labs: Laboratory Results - last 24 hr 03/13/19 03/13/19 03/13/19 08:23 08:23 08:23 WBC 10.4 H RBC 3.25 L Hgb 9.7 L Hct 28.9 L MCV 89.1 MCH 29.8 MCHC 33.5 RDW 13.8 Plt Count 223 MPV 9.8 Absolute Neuts (auto) 7.6 Neutrophils % 73.5 Lymphocytes % 16.7 Monocytes % 7.1 D Eosinophils % 1.9 D Basophils % 0.8 D Nucleated RBC % 0 Anticoagulation Therapy Puncture Site ABG pH ABG pCO2 at Pt Temp ABG pO2 at Pt Temp ABG HCO3 ABG O2 Sat (Measured) ABG O2 Content ABG Base Excess Neto Test Carboxyhemoglobin Methemoglobin O2 Delivery Device Oxygen Flow Rate Vent Mode Vent Rate Mechanical Rate Pressure Support Vent Sodium 141 Potassium 4.7 Chloride 114 H Carbon Dioxide 18 L Anion Gap 9 BUN 48.4 H Creatinine 2.9 H Est GFR (CKD-EPI)AfAm 21.30 Est GFR (CKD-EPI)NonAf 18.37 POC Glucometer Random Glucose 218 H Hemoglobin A1c % Lactic Acid Calcium 8.4 L Magnesium Total Bilirubin 0.2 AST 20 ALT 20 Alkaline Phosphatase 110 Creatine Kinase 305 H Creatine Kinase Index 0.7 CK-MB (CK-2) 2.3 Troponin I < 0.02 B-Natriuretic Peptide 1204.3 H Total Protein 7.6 Albumin 3.6 TSH 03/13/19 03/13/19 03/13/19 08:23 09:10 16:21 WBC RBC Hgb Hct MCV MCH MCHC RDW Plt Count MPV Absolute Neuts (auto) Neutrophils % Lymphocytes % Monocytes % Eosinophils % Basophils % Nucleated RBC % Anticoagulation Therapy No Result Required. Puncture Site Left radial ABG pH 7.31 L ABG pCO2 at Pt Temp 40.0 ABG pO2 at Pt Temp 67.4 L ABG HCO3 19.6 L ABG O2 Sat (Measured) 92.2 L ABG O2 Content 11.2 ABG Base Excess -5.6 L Neto Test Positive Carboxyhemoglobin 1.1 Methemoglobin 1.4 O2 Delivery Device No Result Required. Oxygen Flow Rate Yes Vent Mode No Result Required. Vent Rate No Result Required. Mechanical Rate No Result Required. Pressure Support Vent No Result Required. Sodium Potassium Chloride Carbon Dioxide Anion Gap BUN Creatinine Est GFR (CKD-EPI)AfAm Est GFR (CKD-EPI)NonAf POC Glucometer 160 Random Glucose Hemoglobin A1c % Lactic Acid 1.4 Calcium Magnesium Total Bilirubin AST ALT Alkaline Phosphatase Creatine Kinase Creatine Kinase Index CK-MB (CK-2) Troponin I B-Natriuretic Peptide Total Protein Albumin TSH 03/13/19 03/14/19 03/14/19 20:38 05:53 06:05 WBC 10.8 H RBC 3.04 L Hgb 9.1 L Hct 27.3 L MCV 89.6 MCH 30.0 MCHC 33.5 RDW 13.7 Plt Count 211 MPV 10.1 Absolute Neuts (auto) 7.1 Neutrophils % 65.4 Lymphocytes % 21.3 D Monocytes % 10.5 H Eosinophils % 1.9 Basophils % 0.9 Nucleated RBC % 0 Anticoagulation Therapy Puncture Site ABG pH ABG pCO2 at Pt Temp ABG pO2 at Pt Temp ABG HCO3 ABG O2 Sat (Measured) ABG O2 Content ABG Base Excess Neto Test Carboxyhemoglobin Methemoglobin O2 Delivery Device Oxygen Flow Rate Vent Mode Vent Rate Mechanical Rate Pressure Support Vent Sodium Potassium Chloride Carbon Dioxide Anion Gap BUN Creatinine Est GFR (CKD-EPI)AfAm Est GFR (CKD-EPI)NonAf POC Glucometer 189 153 Random Glucose Hemoglobin A1c % Lactic Acid Calcium Magnesium Total Bilirubin AST ALT Alkaline Phosphatase Creatine Kinase Creatine Kinase Index CK-MB (CK-2) Troponin I B-Natriuretic Peptide Total Protein Albumin TSH 03/14/19 03/14/19 06:05 06:05 WBC RBC Hgb Hct MCV MCH MCHC RDW Plt Count MPV Absolute Neuts (auto) Neutrophils % Lymphocytes % Monocytes % Eosinophils % Basophils % Nucleated RBC % Anticoagulation Therapy Puncture Site ABG pH ABG pCO2 at Pt Temp ABG pO2 at Pt Temp ABG HCO3 ABG O2 Sat (Measured) ABG O2 Content ABG Base Excess Neto Test Carboxyhemoglobin Methemoglobin O2 Delivery Device Oxygen Flow Rate Vent Mode Vent Rate Mechanical Rate Pressure Support Vent Sodium 140 Potassium 4.6 Chloride 112 H Carbon Dioxide 21 Anion Gap 6 L BUN 49.0 H Creatinine 2.8 H Est GFR (CKD-EPI)AfAm 22.22 Est GFR (CKD-EPI)NonAf 19.17 POC Glucometer Random Glucose 162 H Hemoglobin A1c % 6.6 H Lactic Acid Calcium 8.3 L Magnesium 2.2 Total Bilirubin 0.4 AST 20 ALT 19 Alkaline Phosphatase 100 Creatine Kinase Creatine Kinase Index CK-MB (CK-2) Troponin I B-Natriuretic Peptide 1669.4 H Total Protein 7.3 Albumin 3.2 L TSH 1.27 Problem List - Problems (1) Acute respiratory failure with hypoxemia Code(s): J96.01 - ACUTE RESPIRATORY FAILURE WITH HYPOXIA (2) CHF (congestive heart failure) Code(s): I50.9 - HEART FAILURE, UNSPECIFIED Qualifiers: Heart failure type: unspecified Heart failure chronicity: acute on chronic Qualified Code(s): I50.9 - Heart failure, unspecified (3) Hypoxemia requiring supplemental oxygen Code(s): R09.02 - HYPOXEMIA; Z99.81 - DEPENDENCE ON SUPPLEMENTAL OXYGEN (4) CKD (chronic kidney disease) Code(s): N18.9 - CHRONIC KIDNEY DISEASE, UNSPECIFIED (5) COPD (chronic obstructive pulmonary disease) Code(s): J44.9 - CHRONIC OBSTRUCTIVE PULMONARY DISEASE, UNSPECIFIED Qualifiers: COPD type: unspecified COPD Qualified Code(s): J44.9 - Chronic obstructive pulmonary disease, unspecified (6) Diabetes mellitus Code(s): E11.9 - TYPE 2 DIABETES MELLITUS WITHOUT COMPLICATIONS Qualifiers: Diabetes mellitus type: type 2 (7) HLD (hyperlipidemia) Code(s): E78.5 - HYPERLIPIDEMIA, UNSPECIFIED (8) HTN (hypertension) Code(s): I10 - ESSENTIAL (PRIMARY) HYPERTENSION (9) Hypercholesteremia Code(s): E78.00 - PURE HYPERCHOLESTEROLEMIA, UNSPECIFIED (10) Hypertension Code(s): I10 - ESSENTIAL (PRIMARY) HYPERTENSION Qualifiers: Hypertension type: unspecified Qualified Code(s): I10 - Essential (primary ) hypertension (11) Hypothyroid Code(s): E03.9 - HYPOTHYROIDISM, UNSPECIFIED (12) Morbid (severe) obesity due to excess calories Code(s): E66.01 - MORBID (SEVERE) OBESITY DUE TO EXCESS CALORIES (13) SOB (shortness of breath) Code(s): R06.02 - SHORTNESS OF BREATH (14) Sleep apnea with use of continuous positive airway pressure (CPAP) Code(s): G47.30 - SLEEP APNEA, UNSPECIFIED (15) Type 2 diabetes mellitus with other diabetic kidney complication Code(s): E11.29 - TYPE 2 DIABETES MELLITUS W OTH DIABETIC KIDNEY COMPLICATION Assessment/Plan Trial of NC O2 NIPPV Support QHS & PRN Lasix IVP Daily weight if possible Follow I & O Aspiration precautions Monitor off ABX Monitor off systemic steroids BD TX PRN VTE prophylaxis Renal evaluation Dr Malloy Problem List - Problems (1) Acute respiratory failure with hypoxemia Code(s): J96.01 - ACUTE RESPIRATORY FAILURE WITH HYPOXIA (2) CHF (congestive heart failure) Code(s): I50.9 - HEART FAILURE, UNSPECIFIED Qualifiers: Heart failure type: unspecified Heart failure chronicity: acute on chronic Qualified Code(s): I50.9 - Heart failure, unspecified (3) Hypoxemia requiring supplemental oxygen Code(s): R09.02 - HYPOXEMIA; Z99.81 - DEPENDENCE ON SUPPLEMENTAL OXYGEN (4) CKD (chronic kidney disease) Code(s): N18.9 - CHRONIC KIDNEY DISEASE, UNSPECIFIED (5) COPD (chronic obstructive pulmonary disease) Code(s): J44.9 - CHRONIC OBSTRUCTIVE PULMONARY DISEASE, UNSPECIFIED Qualifiers: COPD type: unspecified COPD Qualified Code(s): J44.9 - Chronic obstructive pulmonary disease, unspecified (6) Diabetes mellitus Code(s): E11.9 - TYPE 2 DIABETES MELLITUS WITHOUT COMPLICATIONS Qualifiers: Diabetes mellitus type: type 2 (7) HLD (hyperlipidemia) Code(s): E78.5 - HYPERLIPIDEMIA, UNSPECIFIED (8) HTN (hypertension) Code(s): I10 - ESSENTIAL (PRIMARY) HYPERTENSION (9) Hypercholesteremia Code(s): E78.00 - PURE HYPERCHOLESTEROLEMIA, UNSPECIFIED (10) Hypertension Code(s): I10 - ESSENTIAL (PRIMARY) HYPERTENSION Qualifiers: Hypertension type: unspecified Qualified Code(s): I10 - Essential (primary ) hypertension (11) Hypothyroid Code(s): E03.9 - HYPOTHYROIDISM, UNSPECIFIED (12) Morbid (severe) obesity due to excess calories Code(s): E66.01 - MORBID (SEVERE) OBESITY DUE TO EXCESS CALORIES (13) SOB (shortness of breath) Code(s): R06.02 - SHORTNESS OF BREATH (14) Sleep apnea with use of continuous positive airway pressure (CPAP) Code(s): G47.30 - SLEEP APNEA, UNSPECIFIED (15) Type 2 diabetes mellitus with other diabetic kidney complication Code(s): E11.29 - TYPE 2 DIABETES MELLITUS W OTH DIABETIC KIDNEY COMPLICATION
[2019-03-14] MEDS: amLODIPine BESYLATE 5 MG TABLET (FP) PO SCH (09:03)
[2019-03-14] MEDS: LOSARTAN POTASSIUM 50 MG TABLET (FP) PO SCH (09:03)
[2019-03-14] MEDS: METOPROLOL TARTRATE 50 MG TABLET (FP) PO SCH (09:03)
[2019-03-14] MEDS: PANTOPRAZOLE 40 MG TABLET PO SCH (09:03)
[2019-03-14] MEDS: LIDOCAINE 5% TOPICAL PATCH TP SCH (09:04)
[2019-03-14] MEDS: HEPARIN NA (PORCINE) 5,000 UNITS/ML 1ML VIAL SQ SCH ×2 (09:04→21:18)
[2019-03-14] MEDS: LORATADINE 10 MG TABLET PO SCH (09:04)
[2019-03-14] MEDS: FERROUS SO4 325 MG TABLET (FP) PO SCH (09:04)
[2019-03-14] MEDS ORDERED: METOPROLOL TARTRATE 50 MG TABLET (FP) PO SCH (10:00)
[2019-03-14] MEDS ORDERED: LORATADINE 10 MG TABLET PO SCH (10:00)
[2019-03-14] MEDS ORDERED: LOSARTAN POTASSIUM 50 MG TABLET (FP) PO SCH (10:00)
[2019-03-14] MEDS ORDERED: PANTOPRAZOLE 40 MG TABLET PO SCH (10:00)
[2019-03-14] MEDS ORDERED: LIDOCAINE 5% TOPICAL PATCH TP SCH (10:00)
[2019-03-14] MEDS ORDERED: LISINOPRIL 20 MG TABLET (FP) PO SCH ×2 (10:00)
[2019-03-14] MEDS ORDERED: HYDROCHLOROTHIAZIDE 25 MG TABLET (FP) PO SCH ×2 (10:00)
[2019-03-14] MEDS ORDERED: FERROUS SO4 325 MG TABLET (FP) PO SCH (10:00)
--- NOTE | 2019-03-14 10:51 | PN ---
Progress Note (short form) - Note Progress Note: ID consult dictated imp/reccd admitted with acute sob and hypoxia requiring bipap in ED suspected CHf exacerbation/volume overload doubt pneumonia clinically improved 75 percent since admission yesterday with diuresis low grade temp yesterday - now resolved would continue diuresis-clinically improved no need for antibiotics at this time will get influenza screen please call back if needed Problem List - Problems (1) Acute respiratory failure with hypoxemia Code(s): J96.01 - ACUTE RESPIRATORY FAILURE WITH HYPOXIA (2) Acute on chronic diastolic CHF (congestive heart failure) Code(s): I50.33 - ACUTE ON CHRONIC DIASTOLIC (CONGESTIVE) HEART FAILURE (3) Diabetes mellitus Code(s): E11.9 - TYPE 2 DIABETES MELLITUS WITHOUT COMPLICATIONS Qualifiers: Diabetes mellitus type: type 2 (4) COPD (chronic obstructive pulmonary disease) Code(s): J44.9 - CHRONIC OBSTRUCTIVE PULMONARY DISEASE, UNSPECIFIED Qualifiers: COPD type: unspecified COPD Qualified Code(s): J44.9 - Chronic obstructive pulmonary disease, unspecified (5) Sleep apnea with use of continuous positive airway pressure (CPAP) Code(s): G47.30 - SLEEP APNEA, UNSPECIFIED
--- NOTE | 2019-03-14 11:51 | CONS ---
INFECTIOUS DISEASE CONSULTATION DATE OF CONSULTATION: DATE OF DICTATION: 03/14/2019 REQUESTING PHYSICIAN: Bakari Jackman MD HISTORY: This is a 49-year-old woman with a longstanding history of diabetes for over 20 years. She has a history of CKD as well as obstructive sleep apnea. She is maintained on home oxygen 3 L. She presents to the emergency room with severe respiratory distress and hypoxemia yesterday afternoon. She needed to call the ambulance to get to the ER. She required BiPAP and was treated with diuretics overnight with improvement. Prior to admission, she had no fevers or chills. She noted sudden onset of shortness of breath with dry cough. There was no nausea or vomiting. No abdominal or chest pain. No dysuria or diarrhea. I am asked to see her because yesterday afternoon she had a temperature of 100.4. Her fevers have spontaneously resolved. Of note, she was treated with diuretics overnight and reports she is 75% improved. She had an influenza vaccine with her PCP, , in December of this year. She is a nonsmoker. PAST MEDICAL HISTORY: Notable for CHF, COPD on 3 L oxygen at home, hypertension, hyperlipidemia, insulin-dependent diabetes for over 20 years, CKD, morbid obesity, hypothyroidism, obstructive sleep apnea. SOCIAL HISTORY: She is a never smoker. 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 She is at home with her mother, her daughter, and her grandchildren who are 10 and 12. There has been no recent travel. She was born in [facility]. Has lived in this country for 15 years. Her last trip to [facility] was 5 years ago. FAMILY HISTORY: Unremarkable. ALLERGIES: She has no known drug allergies. MEDICATIONS: As an outpatient include Lipitor, ferrous sulfate, Lasix, hydrochlorothiazide, insulin, Synthroid, lisinopril, Lopressor, and losartan. PHYSICAL EXAMINATION: Vital Signs: Her current temperature is 98.4, pulse 95, blood pressure 139/66. She is now saturating 100% back on her baseline 3 L oxygen. General: She is an alert woman in no acute distress. HEENT: She is normocephalic. Her eyes are anicteric. Neck: Supple. Lungs: Diminished breath sounds at the bases. Heart: Regular rate and rhythm. Abdomen: Soft, protuberant, nontender. Extremities: 1+ edema bilaterally. DIAGNOSTIC DATA: Labs are notable for a white count of 10.8, hemoglobin 9.1, platelets are 211, BUN 49, creatinine 2.8 with normal LFTs. Hemoglobin A1c is 6.6. Blood cultures have been sent and are negative. Chest x-ray reveals bilateral congestive changes. Large heart. Fullness of the tasneem. Congestive changes bilaterally with sharp angles. In summary, this is a 49-year-old woman with: 1. Insulin-dependent diabetes, COPD on home oxygen, obstructive sleep apnea, history of heart failure admitted with acute on chronic diastolic heart failure. She is being treated with diuretics with good improvement. Would agree that at this time there is no need for any antibiotic treatment as the suspicion for pneumonia is quite low. Would obtain an Influenza screen as well. 2. History of worsening renal function. She has acute kidney injury in the setting of CKD probably secondary to the heart. She is being evaluated by Renal. 3. History of morbid obesity, obstructive sleep apnea, COPD on home oxygen. She appears to be approaching her baseline oxygenation. Please call back if needed. DELIA KINSEY M.D. [id number]
--- NOTE | 2019-03-14 13:27 | PN ---
Progress Note, Physician Chief Complaint: less sob tele nsr. History of Present Illness: 49year oldwoman with pmh HTN, DMII, morbid obesity, CKD adm [facility] for elective gastric sleeve 10/30/17 post op BANDAR and uncontrolled HTN, chronic diastolic CHF. She saw pulmonary Dr. Seo 11/13/18 who felt she did not have COPD but that she may have GERD contributing to her symptoms given her h/o bariatric surgery. She presents with worsening SOB. Noted with fluid overload on CXR. Echo 11/15/18 TDS. Grossly normal LV and RV. Mild LA dilatation. Mild MR and mild TR. - Current Medication List Current Medications: Active Medications Acetaminophen (Tylenol -) 650 mg PO Q6H PRN PRN Reason: PAIN LEVEL 5-10/FEVER Last Admin: 03/14/19 11:06 Dose: 650 mg Albuterol Sulfate (Ventolin 0.083% Nebulizer Soln -) 1 amp NEB Q4H PRN PRN Reason: SHORT OF BREATH/WHEEZING Last Admin: 03/13/19 20:17 Dose: 1 amp Amlodipine Besylate (Norvasc -) 5 mg PO DAILY [facility] Last Admin: 03/14/19 09:03 Dose: 5 mg Atorvastatin Calcium (Lipitor -) 40 mg PO HS [facility] Last Admin: 03/13/19 21:20 Dose: 40 mg Ferrous Sulfate (Feosol -) 325 mg PO DAILY [facility] Last Admin: 03/14/19 09:04 Dose: 325 mg Furosemide (Lasix Injection -) 80 mg IVPUSH BIDLASIX [facility] Last Admin: 03/14/19 05:58 Dose: 80 mg Heparin Sodium (Porcine) (Heparin -) 5,000 unit SQ BID [facility] Last Admin: 03/14/19 09:04 Dose: 5,000 unit Insulin Aspart (Novolog Vial Sliding Scale -) 1 vial SQ ACHS [facility]; Protocol Last Admin: 03/14/19 12:08 Dose: Not Given Levothyroxine Sodium (Synthroid -) 150 mcg PO ACBK [facility] Last Admin: 03/14/19 06:24 Dose: 150 mcg Lidocaine (Lidoderm Patch -) 1 patch TP DAILY [facility] Last Admin: 03/14/19 09:04 Dose: 1 patch Loratadine (Claritin -) 10 mg PO DAILY [facility] Last Admin: 03/14/19 09:04 Dose: 10 mg Losartan Potassium (Cozaar -) 50 mg PO DAILY [facility] Last Admin: 03/14/19 09:03 Dose: 50 mg Metoprolol Tartrate (Lopressor -) 100 mg PO DAILY [facility] Last Admin: 03/14/19 09:03 Dose: 100 mg Miscellaneous (Lidoderm Patch Removal) 1 each [facility] DAILY@2200 [facility] Pantoprazole Sodium (Protonix -) 40 mg PO DAILY [facility] Last Admin: 03/14/19 09:03 Dose: 40 mg - Objective Vital Signs: Vital Signs Temperature 98.4 F 03/14/19 09:09 Pulse Rate 95 H 03/14/19 09:09 Respiratory Rate 29 H 03/14/19 09:09 Blood Pressure 139/66 03/14/19 09:09 O2 Sat by Pulse Oximetry (%) 100 03/14/19 09:10 Constitutional: Yes: No Distress, Calm Eyes: Yes: EOM Intact HENT: Yes: Normocephalic Neck: Yes: Trachea Midline Cardiovascular: Yes: Regular Rate and Rhythm Respiratory: Yes: Rales (bilat bases) Gastrointestinal: Yes: Normal Bowel Sounds, Soft, Abdomen, Obese Musculoskeletal: Yes: WNL Extremities: Yes: WNL Edema: No Labs: CBC, BMP 03/14/19 06:05 03/14/19 06:05 Assessment/Plan 49year oldwoman with pmh HTN, DMII, morbid obesity, CKD adm [facility] for elective gastric sleeve 10/30/17 post op BANDAR and uncontrolled HTN, chronic diastolic CHF. She saw pulmonary Dr. Seo 11/13/18 who felt she did not have COPD but that she may have GERD contributing to her symptoms given her h/o bariatric surgery. She presents with worsening SOB. Noted with fluid overload on CXR. Echo 11/15/18 TDS. Grossly normal LV and RV. Mild LA dilatation. Mild MR and mild TR. Acute on chronic diastolic CHF: -no need for repeat echo -Increase diuretics Lasix 80 mg IV bid -renal evaluation appreciated. -it is likely that the precipitating cause is renal disease and inability to handle daily salt and fluid load, needs more diuresis and possibly GROUP DIRECTOR if worsens.
[2019-03-14 16:26] VITALS: BMI 53.4
--- NOTE | 2019-03-14 16:39 | PN ---
Progress Note, Physician History of Present Illness: Pt seen and examined at bedside. She is awake and alert. SHe feels that her breathing is improved. - Current Medication List Current Medications: Active Medications Acetaminophen (Tylenol -) 650 mg PO Q6H PRN PRN Reason: PAIN LEVEL 5-10/FEVER Last Admin: 03/14/19 11:06 Dose: 650 mg Albuterol Sulfate (Ventolin 0.083% Nebulizer Soln -) 1 amp NEB Q4H PRN PRN Reason: SHORT OF BREATH/WHEEZING Last Admin: 03/13/19 20:17 Dose: 1 amp Amlodipine Besylate (Norvasc -) 5 mg PO DAILY [facility] Last Admin: 03/14/19 09:03 Dose: 5 mg Atorvastatin Calcium (Lipitor -) 40 mg PO HS [facility] Last Admin: 03/13/19 21:20 Dose: 40 mg Ferrous Sulfate (Feosol -) 325 mg PO DAILY [facility] Last Admin: 03/14/19 09:04 Dose: 325 mg Furosemide (Lasix Injection -) 80 mg IVPUSH BIDLASIX [facility] Last Admin: 03/14/19 14:58 Dose: 80 mg Heparin Sodium (Porcine) (Heparin -) 5,000 unit SQ BID [facility] Last Admin: 03/14/19 09:04 Dose: 5,000 unit Insulin Aspart (Novolog Vial Sliding Scale -) 1 vial SQ ACHS [facility]; Protocol Last Admin: 03/14/19 12:08 Dose: Not Given Levothyroxine Sodium (Synthroid -) 150 mcg PO ACBK [facility] Last Admin: 03/14/19 06:24 Dose: 150 mcg Lidocaine (Lidoderm Patch -) 1 patch TP DAILY [facility] Last Admin: 03/14/19 09:04 Dose: 1 patch Loratadine (Claritin -) 10 mg PO DAILY [facility] Last Admin: 03/14/19 09:04 Dose: 10 mg Losartan Potassium (Cozaar -) 50 mg PO DAILY [facility] Last Admin: 03/14/19 09:03 Dose: 50 mg Metoprolol Tartrate (Lopressor -) 100 mg PO DAILY [facility] Last Admin: 03/14/19 09:03 Dose: 100 mg Miscellaneous (Lidoderm Patch Removal) 1 each [facility] DAILY@2200 [facility] Pantoprazole Sodium (Protonix -) 40 mg PO DAILY [facility] Last Admin: 03/14/19 09:03 Dose: 40 mg - Objective Vital Signs: Vital Signs Temperature 98.1 F 03/14/19 14:35 Pulse Rate 84 03/14/19 14:35 Respiratory Rate 16 03/14/19 14:35 Blood Pressure 143/93 03/14/19 14:35 O2 Sat by Pulse Oximetry (%) 100 03/14/19 09:10 Constitutional: Yes: Calm Eyes: Yes: Conjunctiva Clear HENT: Yes: Atraumatic Neck: Yes: Supple Cardiovascular: Yes: S1, S2 Respiratory: Yes: On Nasal O2 Gastrointestinal: Yes: Soft, Abdomen, Obese Genitourinary: Yes: WNL Musculoskeletal: Yes: WNL Edema: Yes Edema: LLE: 1+, RLE: 1+ Neurological: Yes: Oriented Psychiatric: Yes: Oriented Labs: CBC, BMP 03/14/19 06:05 03/14/19 06:05 Assessment/Plan Current Medications Generic Name Dose Route Start Last Admin Trade Name Freq PRN Reason Stop Dose Admin Acetaminophen 650 mg 03/13/19 16:10 03/14/19 11:06 Tylenol - PO 650 mg Q6H PRN Administration PAIN LEVEL 5-10/FEVER Albuterol Sulfate 1 amp 03/13/19 16:31 03/13/19 20:17 Ventolin 0.083% Nebulizer Soln - NEB 1 amp Q4H PRN Administration SHORT OF BREATH/WHEEZING Amlodipine Besylate 5 mg 03/14/19 10:00 03/14/19 09:03 Norvasc - PO 5 mg DAILY [facility] Administration Atorvastatin Calcium 40 mg 03/13/19 22:00 03/13/19 21:20 Lipitor - PO 40 mg HS [facility] Administration Ferrous Sulfate 325 mg 03/14/19 10:00 03/14/19 09:04 Feosol - PO 325 mg DAILY [facility] Administration Furosemide 80 mg 03/14/19 06:00 03/14/19 14:58 Lasix Injection - IVPUSH 80 mg BIDLASIX [facility] Administration Heparin Sodium (Porcine) 5,000 unit 03/13/19 22:00 03/14/19 09:04 Heparin - SQ 5,000 unit BID [facility] Administration Insulin Aspart 1 vial 03/13/19 22:00 03/14/19 12:08 Novolog Vial Sliding Scale - SQ Not Given ACHS [facility] Protocol Levothyroxine Sodium 150 mcg 03/14/19 07:00 03/14/19 06:24 Synthroid - PO 150 mcg ACBK [facility] Administration Lidocaine 1 patch 03/14/19 10:00 03/14/19 09:04 Lidoderm Patch - TP 1 patch DAILY [facility] Administration Loratadine 10 mg 03/14/19 10:00 03/14/19 09:04 Claritin - PO 10 mg DAILY [facility] Administration Losartan Potassium 50 mg 03/14/19 10:00 03/14/19 09:03 Cozaar - PO 50 mg DAILY [facility] Administration Metoprolol Tartrate 100 mg 03/14/19 10:00 03/14/19 09:03 Lopressor - PO 100 mg DAILY [facility] Administration Miscellaneous 1 each 03/14/19 22:00 Lidoderm Patch Removal [facility] DAILY@2200 [facility] Pantoprazole Sodium 40 mg 03/14/19 10:00 03/14/19 09:03 Protonix - PO 40 mg DAILY [facility] Administration Impression 1. CKD 2. fluid overload 3. morbid obesity 4. hx of bariatric surgery 5. DM 6. HTN 7. hypothyroidism 8. ovarian cyst 9. PNA 10. CHF Plan - cont lasix - cont losartan - monitor renal function - cardio input appreciated - volume status improving - 2 gram sodium diet and fluid restriction - avoid nsaids
[2019-03-14] MEDS ORDERED: BENZOCAINE/MENTH/CETYLPYRD CL 1 EACH LOZENGE MM PRN (18:34)
[2019-03-14] MEDS: ATORVASTATIN CA 40 MG TABLET (FP) PO SCH (21:18)
[2019-03-14] MEDS: LIDOCAINE PATCH REMOVAL MC SCH (21:19)
[2019-03-14] MEDS: guaiFENesin/D-M SUGAR-FREE/ACLHOL-FREE 118 ML BOTTLE PO PRN (21:20)
[2019-03-15] MEDS: INSULIN SLIDING SCALE (NOVOLOG) 1 VIAL SQ SCH ×4 (06:15→21:23)
[2019-03-15] MEDS ORDERED: PT OWN MED DRAWER 7, Y5N ONE (06:16)
[2019-03-15] MEDS: LEVOTHYROXINE NA 150 MCG TABLET PO SCH (06:37)
[2019-03-15] MEDS: FUROSEMIDE 40 MG/4 ML INJECTABLE VIAL IVPUSH SCH ×2 (06:37→13:52)
[2019-03-15] MEDS: HEPARIN NA (PORCINE) 5,000 UNITS/ML 1ML VIAL SQ SCH ×2 (10:03→21:23)
[2019-03-15] MEDS: LIDOCAINE 5% TOPICAL PATCH TP SCH (10:04)
[2019-03-15] MEDS: FERROUS SO4 325 MG TABLET (FP) PO SCH (10:04)
[2019-03-15] MEDS: METOPROLOL TARTRATE 50 MG TABLET (FP) PO SCH (10:04)
[2019-03-15] MEDS: LOSARTAN POTASSIUM 50 MG TABLET (FP) PO SCH (10:05)
[2019-03-15] MEDS: LORATADINE 10 MG TABLET PO SCH (10:05)
[2019-03-15] MEDS: amLODIPine BESYLATE 5 MG TABLET (FP) PO SCH (10:05)
[2019-03-15] MEDS: PANTOPRAZOLE 40 MG TABLET PO SCH (10:05)
--- NOTE | 2019-03-15 11:16 | PN ---
Progress Note (short form) - Note Progress Note: f/u positive blood culture less sob feels improved less cough Vital Signs Period Temp Pulse Resp BP Sys/Falcon Pulse Ox Last 24 Hr 97.6 F-98.8 F 84-88 16-20 126-165/57-93 99-100 cor-rrr lungs decrased bs at bases abd soft,nt ext trace edema CBC, BMP 03/14/19 06:05 03/14/19 06:05 Microbiology 03/13/19 08:23 Blood - Peripheral Venous Blood Culture - Preliminary Staphylococcus Coagulase Neg 03/13/19 08:23 Blood - Peripheral Venous Blood Culture - Preliminary NO GROWTH OBTAINED AFTER 48 HOURS, INCUBATION TO CONTINUE FOR 3 DAYS. inflluenza screen negative imp/reccd chf/volume overload- improved blood culture isolate - one of 4 contaminant no need to treat please call back if needed Problem List - Problems (1) Acute respiratory failure with hypoxemia Code(s): J96.01 - ACUTE RESPIRATORY FAILURE WITH HYPOXIA (2) Acute on chronic diastolic CHF (congestive heart failure) Code(s): I50.33 - ACUTE ON CHRONIC DIASTOLIC (CONGESTIVE) HEART FAILURE (3) Diabetes mellitus Code(s): E11.9 - TYPE 2 DIABETES MELLITUS WITHOUT COMPLICATIONS Qualifiers: Diabetes mellitus type: type 2 (4) COPD (chronic obstructive pulmonary disease) Code(s): J44.9 - CHRONIC OBSTRUCTIVE PULMONARY DISEASE, UNSPECIFIED Qualifiers: COPD type: unspecified COPD Qualified Code(s): J44.9 - Chronic obstructive pulmonary disease, unspecified (5) Sleep apnea with use of continuous positive airway pressure (CPAP) Code(s): G47.30 - SLEEP APNEA, UNSPECIFIED
--- NOTE | 2019-03-15 11:25 | PN ---
Progress Note (short form) - Note Progress Note: PULMONARY VSS/AFEBRILE SITTING UP IN BED NIPPV AT HOME NOT WORKING FOR LAST 2 WEEKS Constitutional: Yes: NAD on NIPPV support Eyes: Yes: Conjunctiva Clear, EOM Intact HENT: Yes: Atraumatic, Normocephalic Neck: Yes: Supple, Trachea Midline Cardiovascular: Yes: Tachycardia Respiratory: Yes: On BiPap, Rales, Rhonchi. No: Stridor, Wheezes ...Inspection: Yes: WNL Gastrointestinal: Yes: Normal Bowel Sounds, Soft, Abdomen, Obese Musculoskeletal: Yes: WNL Extremities: Yes: WNL Edema: Yes Peripheral Pulses WNL: Yes Integumentary: Yes: WNL Neurological: Yes: WNL, Alert, Oriented ...Motor Strength: WNL Psychiatric: Yes: WNL, Alert, Oriented Labs: REVIEWED CXR NOTED (1) Acute respiratory failure with hypoxemia Code(s): J96.01 - ACUTE RESPIRATORY FAILURE WITH HYPOXIA (2) CHF (congestive heart failure) Code(s): I50.9 - HEART FAILURE, UNSPECIFIED Qualifiers: Heart failure type: unspecified Heart failure chronicity: acute on chronic Qualified Code(s): I50.9 - Heart failure, unspecified (3) Hypoxemia requiring supplemental oxygen Code(s): R09.02 - HYPOXEMIA; Z99.81 - DEPENDENCE ON SUPPLEMENTAL OXYGEN (4) CKD (chronic kidney disease) Code(s): N18.9 - CHRONIC KIDNEY DISEASE, UNSPECIFIED (5) COPD (chronic obstructive pulmonary disease) Code(s): J44.9 - CHRONIC OBSTRUCTIVE PULMONARY DISEASE, UNSPECIFIED Qualifiers: COPD type: unspecified COPD Qualified Code(s): J44.9 - Chronic obstructive pulmonary disease, unspecified (6) Diabetes mellitus Code(s): E11.9 - TYPE 2 DIABETES MELLITUS WITHOUT COMPLICATIONS Qualifiers: Diabetes mellitus type: type 2 (7) HLD (hyperlipidemia) Code(s): E78.5 - HYPERLIPIDEMIA, UNSPECIFIED (8) HTN (hypertension) Code(s): I10 - ESSENTIAL (PRIMARY) HYPERTENSION (9) Hypercholesteremia Code(s): E78.00 - PURE HYPERCHOLESTEROLEMIA, UNSPECIFIED (10) Hypertension Code(s): I10 - ESSENTIAL (PRIMARY) HYPERTENSION Qualifiers: Hypertension type: unspecified Qualified Code(s): I10 - Essential (primary ) hypertension (11) Hypothyroid Code(s): E03.9 - HYPOTHYROIDISM, UNSPECIFIED (12) Morbid (severe) obesity due to excess calories Code(s): E66.01 - MORBID (SEVERE) OBESITY DUE TO EXCESS CALORIES (13) SOB (shortness of breath) Code(s): R06.02 - SHORTNESS OF BREATH (14) Sleep apnea with use of continuous positive airway pressure (CPAP) Code(s): G47.30 - SLEEP APNEA, UNSPECIFIED (15) Type 2 diabetes mellitus with other diabetic kidney complication Code(s): E11.29 - TYPE 2 DIABETES MELLITUS W OTH DIABETIC KIDNEY COMPLICATION NC O2 NIPPV Support QHS & PRN Lasix IVP Daily weight if possible Follow I & O Aspiration precautions Monitor off ABX Monitor off systemic steroids BD TX PRN VTE prophylaxis Renal evaluation peterson ABREU MD
--- NOTE | 2019-03-15 14:26 | PN ---
Progress Note, Physician History of Present Illness: seen and examined today in nad. states she is feeling a bit better today. no overnight events. no new complaints. - Current Medication List Current Medications: Active Medications Acetaminophen (Tylenol -) 650 mg PO Q6H PRN PRN Reason: PAIN LEVEL 5-10/FEVER Last Admin: 03/14/19 22:58 Dose: 650 mg Albuterol Sulfate (Ventolin 0.083% Nebulizer Soln -) 1 amp NEB Q4H PRN PRN Reason: SHORT OF BREATH/WHEEZING Last Admin: 03/13/19 20:17 Dose: 1 amp Amlodipine Besylate (Norvasc -) 5 mg PO DAILY [facility] Last Admin: 03/15/19 10:05 Dose: 5 mg Atorvastatin Calcium (Lipitor -) 40 mg PO HS [facility] Last Admin: 03/14/19 21:18 Dose: 40 mg Benzocaine/Menthol (Cepacol Lozenge -) 1 each MM Q2H PRN PRN Reason: SORE THROAT Ferrous Sulfate (Feosol -) 325 mg PO DAILY [facility] Last Admin: 03/15/19 10:04 Dose: 325 mg Furosemide (Lasix Injection -) 80 mg IVPUSH BIDLASIX [facility] Last Admin: 03/15/19 13:52 Dose: 80 mg Guaifenesin (Diabetic Tussin Dm -) 5 ml PO Q6H PRN PRN Reason: COUGH Last Admin: 03/14/19 21:20 Dose: 5 ml Heparin Sodium (Porcine) (Heparin -) 5,000 unit SQ BID [facility] Last Admin: 03/15/19 10:03 Dose: 5,000 unit Insulin Aspart (Novolog Vial Sliding Scale -) 1 vial SQ ACHS [facility]; Protocol Last Admin: 03/15/19 12:04 Dose: Not Given Levothyroxine Sodium (Synthroid -) 150 mcg PO ACBK [facility] Last Admin: 03/15/19 06:37 Dose: 150 mcg Lidocaine (Lidoderm Patch -) 1 patch TP DAILY [facility] Last Admin: 03/15/19 10:04 Dose: 1 patch Loratadine (Claritin -) 10 mg PO DAILY [facility] Last Admin: 03/15/19 10:05 Dose: 10 mg Losartan Potassium (Cozaar -) 50 mg PO DAILY [facility] Last Admin: 03/15/19 10:05 Dose: 50 mg Metoprolol Tartrate (Lopressor -) 100 mg PO DAILY [facility] Last Admin: 03/15/19 10:04 Dose: 100 mg Miscellaneous (Lidoderm Patch Removal) 1 each MC DAILY@2200 [facility] Last Admin: 03/14/19 21:19 Dose: 1 each Pantoprazole Sodium (Protonix -) 40 mg PO DAILY [facility] Last Admin: 03/15/19 10:05 Dose: 40 mg - Objective Vital Signs: Vital Signs Temperature 98.8 F 03/15/19 13:45 Pulse Rate 83 03/15/19 13:45 Respiratory Rate 18 03/15/19 13:45 Blood Pressure 148/81 03/15/19 13:45 O2 Sat by Pulse Oximetry (%) 100 03/15/19 09:00 Constitutional: Yes: No Distress, Calm, Obese Eyes: Yes: Conjunctiva Clear, EOM Intact HENT: Yes: Atraumatic, Normocephalic Neck: Yes: Supple, Trachea Midline Cardiovascular: Yes: Regular Rate and Rhythm, S1, S2. No: Bradycardia, Tachycardia, Pulse Irregular, Bruit, JVD, Gallop, Murmur, Rub, S3, S4, Varicosities Respiratory: Yes: Regular, Diminished, On Nasal O2. No: Rales, Rhonchi, SOB, Wheezes Gastrointestinal: Yes: Normal Bowel Sounds, Soft. No: Distention, Tenderness Edema: Yes Edema: LLE: 2+, RLE: 2+ Peripheral Pulses WNL: Yes Peripheral Pulses: Right Radial: 2+, Right Dorsalis Pedis: 2+ Neurological: Yes: Alert, Oriented Psychiatric: Yes: Alert, Oriented Labs: CBC, BMP 03/14/19 06:05 03/14/19 06:05 - ....Imaging Chest X-ray: Report Reviewed, Image Reviewed EKG: Report Reviewed, Image Reviewed Other: Report Reviewed (tele-no sig arrhythmias), Image Reviewed Assessment/Plan 49year oldwoman with pmh HTN, DMII, morbid obesity, CKD adm [facility] for elective gastric sleeve 10/30/17 post op BANDAR and uncontrolled HTN, chronic diastolic CHF. She saw pulmonary Dr. Seo 11/13/18 who felt she did not have COPD but that she may have GERD contributing to her symptoms given her h/o bariatric surgery. She presents with worsening SOB. Noted with fluid overload on CXR. Echo 11/15/18 TDS. Grossly normal LV and RV. Mild LA dilatation. Mild MR and mild TR. Acute on chronic diastolic CHF: -no need for repeat echo -cont diuretics Lasix 80 mg IV bid -monitor I/os, daily weights -monitor daily labs, bun/creat, electrolytes and replete as needed -renal evaluation appreciated.
--- NOTE | 2019-03-15 16:30 | PN ---
Progress Note, Physician Chief Complaint: CHF exacerbation History of Present Illness: NAD SOB improving BLLE edema improving - Current Medication List Current Medications: Active Medications Acetaminophen (Tylenol -) 650 mg PO Q6H PRN PRN Reason: PAIN LEVEL 5-10/FEVER Last Admin: 03/14/19 22:58 Dose: 650 mg Albuterol Sulfate (Ventolin 0.083% Nebulizer Soln -) 1 amp NEB Q4H PRN PRN Reason: SHORT OF BREATH/WHEEZING Last Admin: 03/13/19 20:17 Dose: 1 amp Amlodipine Besylate (Norvasc -) 5 mg PO DAILY [facility] Last Admin: 03/15/19 10:05 Dose: 5 mg Atorvastatin Calcium (Lipitor -) 40 mg PO HS [facility] Last Admin: 03/14/19 21:18 Dose: 40 mg Benzocaine/Menthol (Cepacol Lozenge -) 1 each MM Q2H PRN PRN Reason: SORE THROAT Ferrous Sulfate (Feosol -) 325 mg PO DAILY [facility] Last Admin: 03/15/19 10:04 Dose: 325 mg Furosemide (Lasix Injection -) 80 mg IVPUSH BIDLASIX [facility] Last Admin: 03/15/19 13:52 Dose: 80 mg Guaifenesin (Diabetic Tussin Dm -) 5 ml PO Q6H PRN PRN Reason: COUGH Last Admin: 03/14/19 21:20 Dose: 5 ml Heparin Sodium (Porcine) (Heparin -) 5,000 unit SQ BID [facility] Last Admin: 03/15/19 10:03 Dose: 5,000 unit Insulin Aspart (Novolog Vial Sliding Scale -) 1 vial SQ ACHS [facility]; Protocol Last Admin: 03/15/19 12:04 Dose: Not Given Levothyroxine Sodium (Synthroid -) 150 mcg PO ACBK [facility] Last Admin: 03/15/19 06:37 Dose: 150 mcg Lidocaine (Lidoderm Patch -) 1 patch TP DAILY [facility] Last Admin: 03/15/19 10:04 Dose: 1 patch Loratadine (Claritin -) 10 mg PO DAILY [facility] Last Admin: 03/15/19 10:05 Dose: 10 mg Losartan Potassium (Cozaar -) 50 mg PO DAILY [facility] Last Admin: 03/15/19 10:05 Dose: 50 mg Metoprolol Tartrate (Lopressor -) 100 mg PO DAILY [facility] Last Admin: 03/15/19 10:04 Dose: 100 mg Miscellaneous (Lidoderm Patch Removal) 1 each MC DAILY@2200 [facility] Last Admin: 03/14/19 21:19 Dose: 1 each Pantoprazole Sodium (Protonix -) 40 mg PO DAILY [facility] Last Admin: 03/15/19 10:05 Dose: 40 mg - Objective Vital Signs: Vital Signs Temperature 98.8 F 03/15/19 13:45 Pulse Rate 83 03/15/19 13:45 Respiratory Rate 18 03/15/19 13:45 Blood Pressure 148/81 03/15/19 13:45 O2 Sat by Pulse Oximetry (%) 100 03/15/19 09:00 Constitutional: Yes: Well Nourished, No Distress, Calm, Obese Cardiovascular: Yes: Regular Rate and Rhythm Respiratory: Yes: Regular, On Nasal O2, SOB, SOB on Exertion Gastrointestinal: Yes: Normal Bowel Sounds, Soft, Abdomen, Obese Genitourinary: Yes: WNL Musculoskeletal: Yes: Muscle Weakness Extremities: Yes: WNL Edema: Yes Edema: LLE: 2+, RLE: 2+ Peripheral Pulses WNL: Yes Neurological: Yes: Alert, Oriented Psychiatric: Yes: Alert, Oriented Labs: CBC, BMP 03/14/19 06:05 03/14/19 06:05 Problem List - Problems (1) Acute on chronic diastolic CHF (congestive heart failure) Assessment/Plan: -Last Echo:11/15/18: Grossly normal LV and RV. Mild LA dilatation. Mild MR and mild TR. -Cardiology consult appreciated -IV furosemide 80 mg BID -1 L fluid restriction -Low sodium diabetic diet Problems reviewed: Yes Code(s): I50.33 - ACUTE ON CHRONIC DIASTOLIC (CONGESTIVE) HEART FAILURE (2) REBEKAH (acute kidney injury) Assessment/Plan: -Nephrology on board -Monitor Cr trend, right now at baseline Problems reviewed: Yes Code(s): N17.9 - ACUTE KIDNEY FAILURE, UNSPECIFIED (3) BMI 50.0-59.9, adult Problems reviewed: Yes Code(s): Z68.43 - BODY MASS INDEX (BMI) 50.0-59.9, ADULT (4) Diabetes mellitus Assessment/Plan: -A1c at 6.6% -BGM AC HS -ISS -Diabetic/sodium diet Problems reviewed: Yes Code(s): E11.9 - TYPE 2 DIABETES MELLITUS WITHOUT COMPLICATIONS Qualifiers: Diabetes mellitus type: type 2 (5) Bacteremia Assessment/Plan: -Seen by ID -BC contaminated -No IV abx indicated Problems reviewed: Yes Code(s): R78.81 - BACTEREMIA (6) Anemia Assessment/Plan: -Check Iron, B12 and stool OB -Monitor trend -Transfuse only if Hg <7.0 to avoid fluid overload Problems reviewed: Yes Code(s): D64.9 - ANEMIA, UNSPECIFIED Assessment/Plan see problem list
--- NOTE | 2019-03-15 17:51 | PN ---
Progress Note, Physician History of Present Illness: Pt seen and examine at bedside. She is awake and alert. SHe feels that her breathing is starting to improve. - Current Medication List Current Medications: Active Medications Acetaminophen (Tylenol -) 650 mg PO Q6H PRN PRN Reason: PAIN LEVEL 5-10/FEVER Last Admin: 03/14/19 22:58 Dose: 650 mg Albuterol Sulfate (Ventolin 0.083% Nebulizer Soln -) 1 amp NEB Q4H PRN PRN Reason: SHORT OF BREATH/WHEEZING Last Admin: 03/13/19 20:17 Dose: 1 amp Amlodipine Besylate (Norvasc -) 5 mg PO DAILY [facility] Last Admin: 03/15/19 10:05 Dose: 5 mg Atorvastatin Calcium (Lipitor -) 40 mg PO HS [facility] Last Admin: 03/14/19 21:18 Dose: 40 mg Benzocaine/Menthol (Cepacol Lozenge -) 1 each MM Q2H PRN PRN Reason: SORE THROAT Ferrous Sulfate (Feosol -) 325 mg PO DAILY [facility] Last Admin: 03/15/19 10:04 Dose: 325 mg Furosemide (Lasix Injection -) 80 mg IVPUSH BIDLASIX [facility] Last Admin: 03/15/19 13:52 Dose: 80 mg Guaifenesin (Diabetic Tussin Dm -) 5 ml PO Q6H PRN PRN Reason: COUGH Last Admin: 03/14/19 21:20 Dose: 5 ml Heparin Sodium (Porcine) (Heparin -) 5,000 unit SQ BID [facility] Last Admin: 03/15/19 10:03 Dose: 5,000 unit Insulin Aspart (Novolog Vial Sliding Scale -) 1 vial SQ ACHS [facility]; Protocol Last Admin: 03/15/19 17:19 Dose: Not Given Levothyroxine Sodium (Synthroid -) 150 mcg PO ACBK [facility] Last Admin: 03/15/19 06:37 Dose: 150 mcg Lidocaine (Lidoderm Patch -) 1 patch TP DAILY [facility] Last Admin: 03/15/19 10:04 Dose: 1 patch Loratadine (Claritin -) 10 mg PO DAILY [facility] Last Admin: 03/15/19 10:05 Dose: 10 mg Losartan Potassium (Cozaar -) 50 mg PO DAILY [facility] Last Admin: 03/15/19 10:05 Dose: 50 mg Metoprolol Tartrate (Lopressor -) 100 mg PO DAILY [facility] Last Admin: 03/15/19 10:04 Dose: 100 mg Miscellaneous (Lidoderm Patch Removal) 1 each MC DAILY@2200 [facility] Last Admin: 03/14/19 21:19 Dose: 1 each Pantoprazole Sodium (Protonix -) 40 mg PO DAILY [facility] Last Admin: 03/15/19 10:05 Dose: 40 mg - Objective Vital Signs: Vital Signs Temperature 98.8 F 03/15/19 13:45 Pulse Rate 83 03/15/19 13:45 Respiratory Rate 18 03/15/19 13:45 Blood Pressure 148/81 03/15/19 13:45 O2 Sat by Pulse Oximetry (%) 100 03/15/19 09:00 Constitutional: Yes: Calm Eyes: Yes: Conjunctiva Clear HENT: Yes: Atraumatic Neck: Yes: Supple Cardiovascular: Yes: S1, S2 Respiratory: Yes: CTA Bilaterally Gastrointestinal: Yes: Soft Genitourinary: Yes: WNL Musculoskeletal: Yes: WNL Edema: No Integumentary: Yes: WNL Neurological: Yes: Oriented Psychiatric: Yes: Oriented Labs: CBC, BMP 03/14/19 06:05 03/14/19 06:05 Assessment/Plan Current Medications Generic Name Dose Route Start Last Admin Trade Name Freq PRN Reason Stop Dose Admin Acetaminophen 650 mg 03/13/19 16:10 03/14/19 22:58 Tylenol - PO 650 mg Q6H PRN Administration PAIN LEVEL 5-10/FEVER Albuterol Sulfate 1 amp 03/13/19 16:31 03/13/19 20:17 Ventolin 0.083% Nebulizer Soln - NEB 1 amp Q4H PRN Administration SHORT OF BREATH/WHEEZING Amlodipine Besylate 5 mg 03/14/19 10:00 03/15/19 10:05 Norvasc - PO 5 mg DAILY [facility] Administration Atorvastatin Calcium 40 mg 03/13/19 22:00 03/14/19 21:18 Lipitor - PO 40 mg HS [facility] Administration Benzocaine/Menthol 1 each 03/14/19 18:34 Cepacol Lozenge - MM Q2H PRN SORE THROAT Ferrous Sulfate 325 mg 03/14/19 10:00 03/15/19 10:04 Feosol - PO 325 mg DAILY [facility] Administration Furosemide 80 mg 03/14/19 06:00 03/15/19 13:52 Lasix Injection - IVPUSH 80 mg BIDLASIX [facility] Administration Guaifenesin 5 ml 03/14/19 18:35 03/14/19 21:20 Diabetic Tussin Dm - PO 5 ml Q6H PRN Administration COUGH Heparin Sodium (Porcine) 5,000 unit 03/13/19 22:00 03/15/19 10:03 Heparin - SQ 5,000 unit BID [facility] Administration Insulin Aspart 1 vial 03/13/19 22:00 03/15/19 17:19 Novolog Vial Sliding Scale - SQ Not Given ACHS [facility] Protocol Levothyroxine Sodium 150 mcg 03/14/19 07:00 03/15/19 06:37 Synthroid - PO 150 mcg ACBK [facility] Administration Lidocaine 1 patch 03/14/19 10:00 03/15/19 10:04 Lidoderm Patch - TP 1 patch DAILY [facility] Administration Loratadine 10 mg 03/14/19 10:00 03/15/19 10:05 Claritin - PO 10 mg DAILY [facility] Administration Losartan Potassium 50 mg 03/14/19 10:00 03/15/19 10:05 Cozaar - PO 50 mg DAILY [facility] Administration Metoprolol Tartrate 100 mg 03/14/19 10:00 03/15/19 10:04 Lopressor - PO 100 mg DAILY [facility] Administration Miscellaneous 1 each 03/14/19 22:00 03/14/19 21:19 Lidoderm Patch Removal MC 1 each DAILY@2200 [facility] Administration Pantoprazole Sodium 40 mg 03/14/19 10:00 03/15/19 10:05 Protonix - PO 40 mg DAILY [facility] Administration Impression 1. CKD 2. fluid overload 3. morbid obesity 4. hx of bariatric surgery 5. DM 6. HTN 7. hypothyroidism 8. ovarian cyst 9. PNA 10. CHF Plan - cont lasix - d/c amlodipine - increase losartan to 100 mg - monitor renal function - 2 gram sodium diet and fluid restriction - avoid nsaids
[2019-03-15] MEDS: ACETAMINOPHEN 325 MG TABLET (FP) PO PRN (21:22)
[2019-03-15] MEDS: ATORVASTATIN CA 40 MG TABLET (FP) PO SCH (21:23)
[2019-03-15] MEDS: LIDOCAINE PATCH REMOVAL MC SCH (22:10)
[2019-03-16] MEDS ORDERED: PT OWN MED DRAWER 7, Y5N ONE (06:38)
[2019-03-16] MEDS: INSULIN SLIDING SCALE (NOVOLOG) 1 VIAL SQ SCH ×4 (06:46→21:22)
[2019-03-16] MEDS: FUROSEMIDE 40 MG/4 ML INJECTABLE VIAL IVPUSH SCH ×2 (06:46→14:37)
[2019-03-16] MEDS: LEVOTHYROXINE NA 150 MCG TABLET PO SCH (06:59)
[2019-03-16] MEDS: guaiFENesin/D-M SUGAR-FREE/ACLHOL-FREE 118 ML BOTTLE PO PRN (07:06)
[2019-03-16 07:41] LABS: EOS % 5.5 % (0-4.5); HEMATOCRIT 27.5 % (32.4-45.2); HEMOGLOBIN 9.3 GM/dL (10.7-15.3); LYMPH % 37.4 % (8-40); MCH 29.9 pg (25.7-33.7); MCHC 33.7 g/dl (32.0-36.0); MEAN CELL VOLUME 88.9 fl (80-96); MEAN PLT VOLUME 9.6 fl (7.5-11.1); MONO % 9.7 % (3.8-10.2); NEUT % 46.4 % (42.8-82.8); PLATELET COUNT 234 K/MM3 (134-434); RBC 3.09 M/mm3 (3.60-5.2); RDW 13.3 % (11.6-15.6)
[2019-03-16 08:06] LABS: ALBUMIN 3.1 g/dl (3.4-5.0); BILIRUBIN,TOTAL 0.3 mg/dL (0.2-1); BLOOD UREA NITROGEN 52.2 mg/dL (7-18); CALCIUM 8.9 mg/dL (8.5-10.1); POTASSIUM 4.4 mmol/L (3.5-5.1); TOT PROT 7.2 g/dl (6.4-8.2)
--- NOTE | 2019-03-16 08:23 | PN ---
Progress Note, Physician History of Present Illness: pt seen and examined today in nad. states she is feeling better. no overnight events. no new complaints. - Current Medication List Current Medications: Active Medications Acetaminophen (Tylenol -) 650 mg PO Q6H PRN PRN Reason: PAIN LEVEL 5-10/FEVER Last Admin: 03/15/19 21:22 Dose: 650 mg Albuterol Sulfate (Ventolin 0.083% Nebulizer Soln -) 1 amp NEB Q4H PRN PRN Reason: SHORT OF BREATH/WHEEZING Last Admin: 03/13/19 20:17 Dose: 1 amp Atorvastatin Calcium (Lipitor -) 40 mg PO HS [facility] Last Admin: 03/15/19 21:23 Dose: 40 mg Benzocaine/Menthol (Cepacol Lozenge -) 1 each MM Q2H PRN PRN Reason: SORE THROAT Ferrous Sulfate (Feosol -) 325 mg PO DAILY [facility] Last Admin: 03/15/19 10:04 Dose: 325 mg Furosemide (Lasix Injection -) 80 mg IVPUSH BIDLASIX [facility] Last Admin: 03/16/19 06:46 Dose: 80 mg Guaifenesin (Diabetic Tussin Dm -) 5 ml PO Q6H PRN PRN Reason: COUGH Last Admin: 03/16/19 07:06 Dose: 5 ml Heparin Sodium (Porcine) (Heparin -) 5,000 unit SQ BID [facility] Last Admin: 03/15/19 21:23 Dose: 5,000 unit Insulin Aspart (Novolog Vial Sliding Scale -) 1 vial SQ ACHS [facility]; Protocol Last Admin: 03/16/19 06:46 Dose: Not Given Levothyroxine Sodium (Synthroid -) 150 mcg PO ACBK [facility] Last Admin: 03/16/19 06:59 Dose: 150 mcg Lidocaine (Lidoderm Patch -) 1 patch TP DAILY [facility] Last Admin: 03/15/19 10:04 Dose: 1 patch Loratadine (Claritin -) 10 mg PO DAILY [facility] Last Admin: 03/15/19 10:05 Dose: 10 mg Losartan Potassium (Cozaar -) 100 mg PO DAILY [facility] Metoprolol Tartrate (Lopressor -) 100 mg PO DAILY [facility] Last Admin: 03/15/19 10:04 Dose: 100 mg Miscellaneous (Lidoderm Patch Removal) 1 each MC DAILY@2200 [facility] Last Admin: 03/15/19 22:10 Dose: Not Given Pantoprazole Sodium (Protonix -) 40 mg PO DAILY [facility] Last Admin: 03/15/19 10:05 Dose: 40 mg - Objective Vital Signs: Vital Signs Temperature 98.2 F 03/16/19 07:55 Pulse Rate 90 03/16/19 07:55 Respiratory Rate 18 03/16/19 07:55 Blood Pressure 168/95 03/16/19 07:55 O2 Sat by Pulse Oximetry (%) 97 03/16/19 04:30 Constitutional: Yes: No Distress, Calm Eyes: Yes: Conjunctiva Clear, EOM Intact HENT: Yes: Atraumatic, Normocephalic Neck: Yes: Supple, Trachea Midline Cardiovascular: Yes: Regular Rate and Rhythm, S1, S2. No: Bradycardia, Tachycardia, Pulse Irregular, Bruit, JVD, Gallop, Murmur, Rub, S3, S4, Varicosities, Other Respiratory: Yes: Regular, Diminished. No: Rales, Rhonchi, Wheezes Gastrointestinal: Yes: Normal Bowel Sounds, Soft. No: Distention, Tenderness Extremities: Yes: WNL Edema: Yes Peripheral Pulses: Left Doralis Pedis: 2+, Right Dorsalis Pedis: 2+ Neurological: Yes: Alert, Oriented Psychiatric: Yes: Alert, Oriented Labs: CBC, BMP 03/16/19 06:40 03/16/19 06:40 - ....Imaging Chest X-ray: Report Reviewed, Image Reviewed EKG: Report Reviewed, Image Reviewed Other: Report Reviewed, Image Reviewed (tele-no sig arrhythmias recorded) Assessment/Plan 49year oldwoman with pmh HTN, DMII, morbid obesity, CKD adm [facility] for elective gastric sleeve 10/30/17 post op BANDAR and uncontrolled HTN, chronic diastolic CHF. She saw pulmonary Dr. Seo 11/13/18 who felt she did not have COPD but that she may have GERD contributing to her symptoms given her h/o bariatric surgery. She presents with worsening SOB. Noted with fluid overload on CXR. Echo 11/15/18 TDS. Grossly normal LV and RV. Mild LA dilatation. Mild MR and mild TR. Acute on chronic diastolic CHF: -Volume status improving. -Fup labs -no need for repeat echo -cont diuretics Lasix 80 mg IV bid -monitor I/os, daily weights -monitor daily labs, bun/creat, electrolytes and replete as needed -renal evaluation appreciated.
[2019-03-16] MEDS: LIDOCAINE 5% TOPICAL PATCH TP SCH (09:54)
[2019-03-16] MEDS: PANTOPRAZOLE 40 MG TABLET PO SCH (09:54)
[2019-03-16] MEDS: METOPROLOL TARTRATE 50 MG TABLET (FP) PO SCH (09:55)
[2019-03-16] MEDS: LORATADINE 10 MG TABLET PO SCH (09:55)
[2019-03-16] MEDS: LOSARTAN POTASSIUM 50 MG TABLET (FP) PO SCH (09:55)
[2019-03-16] MEDS: FERROUS SO4 325 MG TABLET (FP) PO SCH (09:55)
[2019-03-16] MEDS: HEPARIN NA (PORCINE) 5,000 UNITS/ML 1ML VIAL SQ SCH ×2 (09:55→21:22)
--- NOTE | 2019-03-16 14:35 | PN ---
Progress Note, Physician Chief Complaint: CHF exacerbation History of Present Illness: NAD SOB improving BLLE edema improving - Current Medication List Current Medications: Active Medications Acetaminophen (Tylenol -) 650 mg PO Q6H PRN PRN Reason: PAIN LEVEL 5-10/FEVER Last Admin: 03/15/19 21:22 Dose: 650 mg Albuterol Sulfate (Ventolin 0.083% Nebulizer Soln -) 1 amp NEB Q4H PRN PRN Reason: SHORT OF BREATH/WHEEZING Last Admin: 03/13/19 20:17 Dose: 1 amp Atorvastatin Calcium (Lipitor -) 40 mg PO HS [facility] Last Admin: 03/15/19 21:23 Dose: 40 mg Benzocaine/Menthol (Cepacol Lozenge -) 1 each MM Q2H PRN PRN Reason: SORE THROAT Ferrous Sulfate (Feosol -) 325 mg PO DAILY [facility] Last Admin: 03/16/19 09:55 Dose: 325 mg Furosemide (Lasix Injection -) 80 mg IVPUSH BIDLASIX [facility] Last Admin: 03/16/19 06:46 Dose: 80 mg Guaifenesin (Diabetic Tussin Dm -) 5 ml PO Q6H PRN PRN Reason: COUGH Last Admin: 03/16/19 07:06 Dose: 5 ml Heparin Sodium (Porcine) (Heparin -) 5,000 unit SQ BID [facility] Last Admin: 03/16/19 09:55 Dose: 5,000 unit Insulin Aspart (Novolog Vial Sliding Scale -) 1 vial SQ [facility]; Protocol Last Admin: 03/16/19 11:57 Dose: Not Given Levothyroxine Sodium (Synthroid -) 150 mcg PO ACBK [facility] Last Admin: 03/16/19 06:59 Dose: 150 mcg Lidocaine (Lidoderm Patch -) 1 patch TP DAILY [facility] Last Admin: 03/16/19 09:54 Dose: 1 patch Loratadine (Claritin -) 10 mg PO DAILY [facility] Last Admin: 03/16/19 09:55 Dose: 10 mg Losartan Potassium (Cozaar -) 100 mg PO DAILY [facility] Last Admin: 03/16/19 09:55 Dose: 100 mg Metoprolol Tartrate (Lopressor -) 100 mg PO DAILY [facility] Last Admin: 03/16/19 09:55 Dose: 100 mg Miscellaneous (Lidoderm Patch Removal) 1 each MC DAILY@2200 [facility] Last Admin: 03/15/19 22:10 Dose: Not Given Pantoprazole Sodium (Protonix -) 40 mg PO DAILY [facility] Last Admin: 03/16/19 09:54 Dose: 40 mg - Objective Vital Signs: Vital Signs Temperature 98.3 F 03/16/19 14:20 Pulse Rate 85 03/16/19 14:20 Respiratory Rate 18 03/16/19 14:20 Blood Pressure 166/67 03/16/19 14:20 O2 Sat by Pulse Oximetry (%) 100 03/16/19 09:00 Constitutional: Yes: Well Nourished, No Distress, Calm Cardiovascular: Yes: Regular Rate and Rhythm Respiratory: Yes: Regular, CTA Bilaterally, On Nasal O2 Gastrointestinal: Yes: Normal Bowel Sounds, Soft Genitourinary: Yes: WNL Musculoskeletal: Yes: WNL Extremities: Yes: WNL Edema: No Peripheral Pulses WNL: Yes Neurological: Yes: Alert, Oriented Psychiatric: Yes: Alert, Oriented Labs: CBC, BMP 03/16/19 06:40 03/16/19 06:40 Problem List - Problems (1) Acute on chronic diastolic CHF (congestive heart failure) Assessment/Plan: -Last Echo:11/15/18: Grossly normal LV and RV. Mild LA dilatation. Mild MR and mild TR. -Cardiology consult appreciated -IV furosemide 80 mg BID -1 L fluid restriction -Low sodium diabetic diet Problems reviewed: Yes Code(s): I50.33 - ACUTE ON CHRONIC DIASTOLIC (CONGESTIVE) HEART FAILURE (2) REBEKAH (acute kidney injury) Assessment/Plan: -Nephrology on board -Monitor Cr trend, right now at baseline Problems reviewed: Yes Code(s): N17.9 - ACUTE KIDNEY FAILURE, UNSPECIFIED (3) BMI 50.0-59.9, adult Problems reviewed: Yes Code(s): Z68.43 - BODY MASS INDEX (BMI) 50.0-59.9, ADULT (4) Diabetes mellitus Assessment/Plan: -A1c at 6.6% -[facility] HS -ISS -Diabetic/sodium diet Problems reviewed: Yes Code(s): E11.9 - TYPE 2 DIABETES MELLITUS WITHOUT COMPLICATIONS Qualifiers: Diabetes mellitus type: type 2 (5) Bacteremia Assessment/Plan: -Seen by ID -BC contaminated -No IV abx indicated Problems reviewed: Yes Code(s): R78.81 - BACTEREMIA (6) Anemia Assessment/Plan: -Check Iron, B12 and stool OB -Monitor trend -Transfuse only if Hg <7.0 to avoid fluid overload Problems reviewed: Yes Code(s): D64.9 - ANEMIA, UNSPECIFIED (7) FLORES (obstructive sleep apnea) Assessment/Plan: -Needs CPAP for home before discharge Problems reviewed: Yes Code(s): G47.33 - OBSTRUCTIVE SLEEP APNEA (ADULT) (PEDIATRIC) Assessment/Plan see problem list Physical therapy
[2019-03-16] MEDS: ACETAMINOPHEN 325 MG TABLET (FP) PO PRN (16:14)
--- NOTE | 2019-03-16 19:08 | PN ---
Progress Note, Physician History of Present Illness: Pt seen and examined at bedside. SHe feels that her breathing is improving. - Current Medication List Current Medications: Active Medications Acetaminophen (Tylenol -) 650 mg PO Q6H PRN PRN Reason: PAIN LEVEL 5-10/FEVER Last Admin: 03/16/19 16:14 Dose: 650 mg Albuterol Sulfate (Ventolin 0.083% Nebulizer Soln -) 1 amp NEB Q4H PRN PRN Reason: SHORT OF BREATH/WHEEZING Last Admin: 03/13/19 20:17 Dose: 1 amp Atorvastatin Calcium (Lipitor -) 40 mg PO HS [facility] Last Admin: 03/15/19 21:23 Dose: 40 mg Benzocaine/Menthol (Cepacol Lozenge -) 1 each MM Q2H PRN PRN Reason: SORE THROAT Ferrous Sulfate (Feosol -) 325 mg PO DAILY [facility] Last Admin: 03/16/19 09:55 Dose: 325 mg Furosemide (Lasix Injection -) 80 mg IVPUSH BIDLASIX [facility] Last Admin: 03/16/19 14:37 Dose: 80 mg Guaifenesin (Diabetic Tussin Dm -) 5 ml PO Q6H PRN PRN Reason: COUGH Last Admin: 03/16/19 07:06 Dose: 5 ml Heparin Sodium (Porcine) (Heparin -) 5,000 unit SQ BID [facility] Last Admin: 03/16/19 09:55 Dose: 5,000 unit Insulin Aspart (Novolog Vial Sliding Scale -) 1 vial SQ ACHS [facility]; Protocol Last Admin: 03/16/19 17:08 Dose: Not Given Levothyroxine Sodium (Synthroid -) 150 mcg PO ACBK [facility] Last Admin: 03/16/19 06:59 Dose: 150 mcg Lidocaine (Lidoderm Patch -) 1 patch TP DAILY [facility] Last Admin: 03/16/19 09:54 Dose: 1 patch Loratadine (Claritin -) 10 mg PO DAILY [facility] Last Admin: 03/16/19 09:55 Dose: 10 mg Losartan Potassium (Cozaar -) 100 mg PO DAILY [facility] Last Admin: 03/16/19 09:55 Dose: 100 mg Metoprolol Tartrate (Lopressor -) 100 mg PO DAILY [facility] Last Admin: 03/16/19 09:55 Dose: 100 mg Miscellaneous (Lidoderm Patch Removal) 1 each MC DAILY@2200 [facility] Last Admin: 03/15/19 22:10 Dose: Not Given Pantoprazole Sodium (Protonix -) 40 mg PO DAILY [facility] Last Admin: 03/16/19 09:54 Dose: 40 mg - Objective Vital Signs: Vital Signs Temperature 98.3 F 03/16/19 18:00 Pulse Rate 86 03/16/19 18:00 Respiratory Rate 18 03/16/19 18:00 Blood Pressure 148/68 03/16/19 18:00 O2 Sat by Pulse Oximetry (%) 100 03/16/19 09:00 Constitutional: Yes: Calm Eyes: Yes: Conjunctiva Clear HENT: Yes: Atraumatic Neck: Yes: Supple Cardiovascular: Yes: S1, S2 Respiratory: Yes: CTA Bilaterally, On Nasal O2 Gastrointestinal: Yes: Soft, Abdomen, Obese Genitourinary: Yes: WNL Musculoskeletal: Yes: WNL Edema: Yes Edema: LLE: 1+, RLE: 1+ Integumentary: Yes: Venous Stasis Changes Neurological: Yes: Oriented Psychiatric: Yes: Oriented Labs: CBC, BMP 03/16/19 06:40 03/16/19 06:40 Assessment/Plan Current Medications Generic Name Dose Route Start Last Admin Trade Name Freq PRN Reason Stop Dose Admin Acetaminophen 650 mg 03/13/19 16:10 03/16/19 16:14 Tylenol - PO 650 mg Q6H PRN Administration PAIN LEVEL 5-10/FEVER Albuterol Sulfate 1 amp 03/13/19 16:31 03/13/19 20:17 Ventolin 0.083% Nebulizer Soln - NEB 1 amp Q4H PRN Administration SHORT OF BREATH/WHEEZING Atorvastatin Calcium 40 mg 03/13/19 22:00 03/15/19 21:23 Lipitor - PO 40 mg HS [facility] Administration Benzocaine/Menthol 1 each 03/14/19 18:34 Cepacol Lozenge - MM Q2H PRN SORE THROAT Ferrous Sulfate 325 mg 03/14/19 10:00 03/16/19 09:55 Feosol - PO 325 mg DAILY [facility] Administration Furosemide 80 mg 03/14/19 06:00 03/16/19 14:37 Lasix Injection - IVPUSH 80 mg BIDLASIX [facility] Administration Guaifenesin 5 ml 03/14/19 18:35 03/16/19 07:06 Diabetic Tussin Dm - PO 5 ml Q6H PRN Administration COUGH Heparin Sodium (Porcine) 5,000 unit 03/13/19 22:00 03/16/19 09:55 Heparin - SQ 5,000 unit BID [facility] Administration Insulin Aspart 1 vial 03/13/19 22:00 03/16/19 17:08 Novolog Vial Sliding Scale - SQ Not Given ACHS [facility] Protocol Levothyroxine Sodium 150 mcg 03/14/19 07:00 03/16/19 06:59 Synthroid - PO 150 mcg ACBK [facility] Administration Lidocaine 1 patch 03/14/19 10:00 03/16/19 09:54 Lidoderm Patch - TP 1 patch DAILY [facility] Administration Loratadine 10 mg 03/14/19 10:00 03/16/19 09:55 Claritin - PO 10 mg DAILY [facility] Administration Losartan Potassium 100 mg 03/16/19 10:00 03/16/19 09:55 Cozaar - PO 100 mg DAILY [facility] Administration Metoprolol Tartrate 100 mg 03/14/19 10:00 03/16/19 09:55 Lopressor - PO 100 mg DAILY [facility] Administration Miscellaneous 1 each 03/14/19 22:00 03/15/19 22:10 Lidoderm Patch Removal MC Not Given DAILY@2200 [facility] Pantoprazole Sodium 40 mg 03/14/19 10:00 03/16/19 09:54 Protonix - PO 40 mg DAILY [facility] Administration Impression 1. CKD 2. fluid overload 3. morbid obesity 4. hx of bariatric surgery 5. DM 6. HTN 7. hypothyroidism 8. ovarian cyst 9. PNA 10. CHF Plan - cont lasix - will likely transition to po in next 24 to 48 hrs - inside sales administrator rising - repeat labs in am - cont arb for now as she has proteinuria - 2 gram sodium diet and fluid restriction - avoid nsaids
[2019-03-16] MEDS: ATORVASTATIN CA 40 MG TABLET (FP) PO SCH (21:22)
[2019-03-16] MEDS: LIDOCAINE PATCH REMOVAL MC SCH (21:30)
[2019-03-16] MEDS: ALBUTEROL SO4 0.083% IH SOL 2.5 MG/3 ML VIAL.NEB. NEB PRN (22:44)
[2019-03-17] MEDS: INSULIN SLIDING SCALE (NOVOLOG) 1 VIAL SQ SCH ×4 (06:31→21:39)
[2019-03-17] MEDS ORDERED: PT OWN MED DRAWER 7, Y5N ONE ×2 (06:33→09:31)
[2019-03-17] MEDS: FUROSEMIDE 40 MG/4 ML INJECTABLE VIAL IVPUSH SCH ×2 (06:34→13:32)
[2019-03-17] MEDS: LEVOTHYROXINE NA 150 MCG TABLET PO SCH (06:34)
--- NOTE | 2019-03-17 07:18 | DS ---
Physical Examination Vital Signs: Vital Signs Temperature 97.9 F 03/17/19 06:00 Pulse Rate 91 H 03/17/19 06:00 Respiratory Rate 20 03/17/19 06:00 Blood Pressure 138/63 03/17/19 06:00 O2 Sat by Pulse Oximetry (%) 100 03/17/19 00:09 Constitutional: Yes: No Distress Eyes: Yes: WNL HENT: Yes: WNL Cardiovascular: Yes: Regular Rate and Rhythm Respiratory: Yes: WNL, Regular Gastrointestinal: Yes: Soft, Abdomen, Obese Renal/: Yes: WNL Musculoskeletal: Yes: WNL Extremities: Yes: WNL Edema: Yes Edema: LLE: Trace, RLE: Trace Peripheral Pulses WNL: Yes Integumentary: Yes: WNL Wound/Incision: Yes: Clean/Dry Neurological: Yes: WNL ...Motor Strength: WNL Psychiatric: Yes: WNL Labs: CBC, BMP 03/16/19 06:40 03/16/19 06:40 Discharge Summary Problems reviewed: Yes Reason For Visit: CHF,HYPOXEMIA REQ SUPPLEMENTAL OXYGEN Current Active Problems Acute on chronic diastolic CHF (congestive heart failure) (Acute) Acute respiratory failure with hypoxemia (Acute) Anemia (Acute) Bacteremia (Acute) CHF (congestive heart failure) (Acute) Hypoxemia requiring supplemental oxygen (Acute) FLORES (obstructive sleep apnea) (Acute) Procedures: Principal: cxr/labs/ Hospital Course: admitted decompensated heart failure, chronic renal failure, copd, iron deficiency, dm2, morbid obesity with poor compliance with diet, medical follow ups and not strictly using bipap at night. admitted diuresed with lasix, respiratory support, abx therapy. improved and monitored yesterday and today feels much beter walking around her room excited o go home. Health Concerns: obesity, compliance with meds/lifestyle Plan of Treatment: lasix 40mg bid, check your labs tomorrow with Your PMD Dr Kan Levine Condition: Fair - Instructions Diet, Activity, Other Instructions: SEE DR TANMAY LEVINE TOMORROW FOR LAB CHECK ON LASIX 2 X DAY AND YOU WILL NEED STRICT MONITORING BY YOUR DOCTOR TO FOLLOW YOUR LABS. COMPLIANCE WITH DIET, MEDICATIONS AND USE YOUR BIPAP AT NIGHT TIME. Referrals: Tanmay Levine [Primary Care Provider] - Disposition: VNS/HOME HEALTH CARE - Home Medications Comprehensive Discharge Medication List: Ambulatory Orders Cetirizine HCl [Zyrtec -] 10 mg PO DAILY 12/13/18 Insulin Degludec [Tresiba Flextouch U-200] 55 units SQ DAILY 12/13/18 Insulin Lispro [Humalog] 36 unit SQ HS 12/13/18 Insulin Lispro [Humalog] 40 unit SQ AM 12/13/18 Semaglutide [Ozempic] 1 mg SQ WEEKLY 12/13/18 Ammonium Lactate Lotion [Lac-Hydrin 12] 1 applic TP DAILY PRN #1 bottle Guaifenesin [Robitussin -] 10 ml PO Q8H PRN #1 bottle 12/24/18 Acetaminophen [Tylenol .Regular Strength -] 650 mg PO Q6H PRN tablet 03/17/19 Albuterol 0.083% Nebulizer Caridad [Ventolin 0.083% Nebulizer Soln -] 1 amp NEB Q4H PRN #120 amp 03/17/19 Atorvastatin Ca [Lipitor] 40 mg PO HS #30 tablet 03/17/19 Ferrous Sulfate 325 mg PO DAILY #30 tablet 03/17/19 Furosemide [Lasix] 40 mg PO BID #60 tablet 03/17/19 Levothyroxine [Synthroid -] 150 mcg PO DAILY #30 tablet 03/17/19 Losartan Potassium [Cozaar -] 50 mg PO DAILY 30 Days #30 tablet 03/17/19 Metoprolol Tartrate [Lopressor] 100 mg PO DAILY #30 tablet 03/17/19 Pantoprazole Sodium [Protonix -] 40 mg PO DAILY #30 tablet.ec 03/17/19
[2019-03-17 08:02] LABS: BASO % 1.2 % (0-2.0); EOS % 4.8 % (0-4.5); HEMATOCRIT 29.4 % (32.4-45.2); HEMOGLOBIN 9.9 GM/dL (10.7-15.3); LYMPH % 39.7 % (8-40); MCHC 33.7 g/dl (32.0-36.0); MEAN PLT VOLUME 9.6 fl (7.5-11.1); MONO % 9.3 % (3.8-10.2); PLATELET COUNT 261 K/MM3 (134-434); RDW 13.6 % (11.6-15.6); WHITE BLOOD COUNT 6.4 K/mm3 (4.0-10.0)
[2019-03-17 08:07] LABS: ALBUMIN 3.6 g/dl (3.4-5.0); BILIRUBIN,TOTAL 0.3 mg/dL (0.2-1); BLOOD UREA NITROGEN 56.4 mg/dL (7-18); CALCIUM 8.9 mg/dL (8.5-10.1); POTASSIUM 4.5 mmol/L (3.5-5.1); TOT PROT 7.8 g/dl (6.4-8.2)
[2019-03-17] MEDS: METOPROLOL TARTRATE 50 MG TABLET (FP) PO SCH (09:41)
[2019-03-17] MEDS: PANTOPRAZOLE 40 MG TABLET PO SCH (09:41)
[2019-03-17] MEDS: FERROUS SO4 325 MG TABLET (FP) PO SCH (09:41)
[2019-03-17] MEDS: LOSARTAN POTASSIUM 50 MG TABLET (FP) PO SCH (09:42)
[2019-03-17] MEDS: LIDOCAINE 5% TOPICAL PATCH TP SCH (09:43)
[2019-03-17] MEDS: LORATADINE 10 MG TABLET PO SCH (09:43)
[2019-03-17] MEDS: HEPARIN NA (PORCINE) 5,000 UNITS/ML 1ML VIAL SQ SCH ×2 (09:43→21:38)
--- NOTE | 2019-03-17 13:09 | PN ---
Progress Note, Physician Chief Complaint: Edema SIMEON History of Present Illness: This is a 49 jorge old female with a PMH of HTN, DMII, morbid obesity, CKD. She was admitted to [facility] for an elective gastric sleeve 10/30/17 post op BANDAR and uncontrolled HTN, chronic diastolic CHF. She saw pulmonary Dr. Seo 11/13/18 who felt she did not have COPD but that she may have GERD contributing to her symptoms given her h/o bariatric surgery. She presents with worsening SOB. Noted with fluid overload on CXR. 03/17/2019 Symptomatically improved - Current Medication List Current Medications: Active Medications Acetaminophen (Tylenol -) 650 mg PO Q6H PRN PRN Reason: PAIN LEVEL 5-10/FEVER Last Admin: 03/16/19 16:14 Dose: 650 mg Albuterol Sulfate (Ventolin 0.083% Nebulizer Soln -) 1 amp NEB Q4H PRN PRN Reason: SHORT OF BREATH/WHEEZING Last Admin: 03/16/19 22:44 Dose: 1 amp Atorvastatin Calcium (Lipitor -) 40 mg PO HS [facility] Last Admin: 03/16/19 21:22 Dose: 40 mg Benzocaine/Menthol (Cepacol Lozenge -) 1 each MM Q2H PRN PRN Reason: SORE THROAT Ferrous Sulfate (Feosol -) 325 mg PO DAILY [facility] Last Admin: 03/17/19 09:41 Dose: 325 mg Furosemide (Lasix Injection -) 80 mg IVPUSH BIDLASIX [facility] Last Admin: 03/17/19 06:34 Dose: 80 mg Guaifenesin (Diabetic Tussin Dm -) 5 ml PO Q6H PRN PRN Reason: COUGH Last Admin: 03/16/19 07:06 Dose: 5 ml Heparin Sodium (Porcine) (Heparin -) 5,000 unit SQ BID [facility] Last Admin: 03/17/19 09:43 Dose: 5,000 unit Insulin Aspart (Novolog Vial Sliding Scale -) 1 vial SQ ACHS [facility]; Protocol Last Admin: 03/17/19 11:50 Dose: Not Given Levothyroxine Sodium (Synthroid -) 150 mcg PO ACBK [facility] Last Admin: 03/17/19 06:34 Dose: 150 mcg Lidocaine (Lidoderm Patch -) 1 patch TP DAILY [facility] Last Admin: 03/17/19 09:43 Dose: 1 patch Loratadine (Claritin -) 10 mg PO DAILY [facility] Last Admin: 03/17/19 09:43 Dose: 10 mg Losartan Potassium (Cozaar -) 100 mg PO DAILY [facility] Last Admin: 03/17/19 09:42 Dose: 100 mg Metoprolol Tartrate (Lopressor -) 100 mg PO DAILY [facility] Last Admin: 03/17/19 09:41 Dose: 100 mg Miscellaneous (Lidoderm Patch Removal) 1 each MC DAILY@2200 [facility] Last Admin: 03/16/19 21:30 Dose: Not Given Pantoprazole Sodium (Protonix -) 40 mg PO DAILY [facility] Last Admin: 03/17/19 09:41 Dose: 40 mg - Objective Vital Signs: Vital Signs Temperature 98.1 F 03/17/19 10:00 Pulse Rate 87 03/17/19 10:00 Respiratory Rate 20 03/17/19 10:00 Blood Pressure 117/65 03/17/19 10:00 O2 Sat by Pulse Oximetry (%) 100 03/17/19 09:00 Constitutional: Yes: No Distress, Obese Eyes: Yes: WNL HENT: Yes: WNL Neck: Yes: WNL Cardiovascular: Yes: Regular Rate and Rhythm, S1, S2 Respiratory: Yes: Dullness (At bases) Gastrointestinal: Yes: Soft Edema: LLE: 1+, RLE: 1+ Neurological: Yes: Alert, Oriented Labs: CBC, BMP 03/17/19 06:30 03/17/19 06:30 Assessment/Plan 49year oldwoman with pmh HTN, DMII, morbid obesity, CKD adm [facility] for elective gastric sleeve 10/30/17 post op BANDAR and uncontrolled HTN, chronic diastolic CHF. She saw pulmonary Dr. Seo 11/13/18 who felt she did not have COPD but that she may have GERD contributing to her symptoms given her h/o bariatric surgery. She presents with worsening SOB. Noted with fluid overload on CXR. Echo 11/15/18 TDS. Grossly normal LV and RV. Mild LA dilatation. Mild MR and mild TR. Diastolic CHF Acute on chronic CHF Was on Lasix 80 mg IVSS BID Can switch to PO diuretics Would favor torsemide (consider 40 mg PO BID) which has better absorption compared with furosemide in patients with right sided failure
--- NOTE | 2019-03-17 17:00 | PN ---
Progress Note, Physician History of Present Illness: Pt seen and examined at bedside. She is awake and alert. She feels that her breathing is improved. - Current Medication List Current Medications: Active Medications Acetaminophen (Tylenol -) 650 mg PO Q6H PRN PRN Reason: PAIN LEVEL 5-10/FEVER Last Admin: 03/16/19 16:14 Dose: 650 mg Albuterol Sulfate (Ventolin 0.083% Nebulizer Soln -) 1 amp NEB Q4H PRN PRN Reason: SHORT OF BREATH/WHEEZING Last Admin: 03/16/19 22:44 Dose: 1 amp Atorvastatin Calcium (Lipitor -) 40 mg PO HS [facility] Last Admin: 03/16/19 21:22 Dose: 40 mg Benzocaine/Menthol (Cepacol Lozenge -) 1 each MM Q2H PRN PRN Reason: SORE THROAT Ferrous Sulfate (Feosol -) 325 mg PO DAILY [facility] Last Admin: 03/17/19 09:41 Dose: 325 mg Furosemide (Lasix Injection -) 80 mg IVPUSH BIDLASIX [facility] Last Admin: 03/17/19 13:32 Dose: 80 mg Guaifenesin (Diabetic Tussin Dm -) 5 ml PO Q6H PRN PRN Reason: COUGH Last Admin: 03/16/19 07:06 Dose: 5 ml Heparin Sodium (Porcine) (Heparin -) 5,000 unit SQ BID [facility] Last Admin: 03/17/19 09:43 Dose: 5,000 unit Insulin Aspart (Novolog Vial Sliding Scale -) 1 vial SQ ACHS [facility]; Protocol Last Admin: 03/17/19 16:36 Dose: Not Given Levothyroxine Sodium (Synthroid -) 150 mcg PO ACBK [facility] Last Admin: 03/17/19 06:34 Dose: 150 mcg Lidocaine (Lidoderm Patch -) 1 patch TP DAILY [facility] Last Admin: 03/17/19 09:43 Dose: 1 patch Loratadine (Claritin -) 10 mg PO DAILY [facility] Last Admin: 03/17/19 09:43 Dose: 10 mg Losartan Potassium (Cozaar -) 100 mg PO DAILY [facility] Last Admin: 03/17/19 09:42 Dose: 100 mg Metoprolol Tartrate (Lopressor -) 100 mg PO DAILY [facility] Last Admin: 03/17/19 09:41 Dose: 100 mg Miscellaneous (Lidoderm Patch Removal) 1 each MC DAILY@2200 [facility] Last Admin: 03/16/19 21:30 Dose: Not Given Pantoprazole Sodium (Protonix -) 40 mg PO DAILY [facility] Last Admin: 03/17/19 09:41 Dose: 40 mg - Objective Vital Signs: Vital Signs Temperature 98.2 F 03/17/19 14:00 Pulse Rate 83 03/17/19 14:00 Respiratory Rate 20 03/17/19 14:00 Blood Pressure 167/91 03/17/19 14:00 O2 Sat by Pulse Oximetry (%) 100 03/17/19 09:00 Constitutional: Yes: Calm HENT: Yes: Atraumatic Cardiovascular: Yes: S1, S2 Respiratory: Yes: CTA Bilaterally, On Nasal O2 Gastrointestinal: Yes: Soft, Abdomen, Obese Genitourinary: Yes: WNL Musculoskeletal: Yes: WNL Edema: Yes Edema: LLE: Trace, RLE: Trace Neurological: Yes: Oriented Psychiatric: Yes: Oriented Labs: CBC, BMP 03/17/19 06:30 03/17/19 06:30 Assessment/Plan Current Medications Generic Name Dose Route Start Last Admin Trade Name Freq PRN Reason Stop Dose Admin Acetaminophen 650 mg 03/13/19 16:10 03/16/19 16:14 Tylenol - PO 650 mg Q6H PRN Administration PAIN LEVEL 5-10/FEVER Albuterol Sulfate 1 amp 03/13/19 16:31 03/16/19 22:44 Ventolin 0.083% Nebulizer Soln - NEB 1 amp Q4H PRN Administration SHORT OF BREATH/WHEEZING Atorvastatin Calcium 40 mg 03/13/19 22:00 03/16/19 21:22 Lipitor - PO 40 mg HS [facility] Administration Benzocaine/Menthol 1 each 03/14/19 18:34 Cepacol Lozenge - MM Q2H PRN SORE THROAT Ferrous Sulfate 325 mg 03/14/19 10:00 03/17/19 09:41 Feosol - PO 325 mg DAILY [facility] Administration Furosemide 80 mg 03/14/19 06:00 03/17/19 13:32 Lasix Injection - IVPUSH 80 mg BIDLASIX [facility] Administration Guaifenesin 5 ml 03/14/19 18:35 03/16/19 07:06 Diabetic Tussin Dm - PO 5 ml Q6H PRN Administration COUGH Heparin Sodium (Porcine) 5,000 unit 03/13/19 22:00 03/17/19 09:43 Heparin - SQ 5,000 unit BID [facility] Administration Insulin Aspart 1 vial 03/13/19 22:00 03/17/19 16:36 Novolog Vial Sliding Scale - SQ Not Given ACHS [facility] Protocol Levothyroxine Sodium 150 mcg 03/14/19 07:00 03/17/19 06:34 Synthroid - PO 150 mcg ACBK [facility] Administration Lidocaine 1 patch 03/14/19 10:00 03/17/19 09:43 Lidoderm Patch - TP 1 patch DAILY [facility] Administration Loratadine 10 mg 03/14/19 10:00 03/17/19 09:43 Claritin - PO 10 mg DAILY [facility] Administration Losartan Potassium 100 mg 03/16/19 10:00 03/17/19 09:42 Cozaar - PO 100 mg DAILY [facility] Administration Metoprolol Tartrate 100 mg 03/14/19 10:00 03/17/19 09:41 Lopressor - PO 100 mg DAILY [facility] Administration Miscellaneous 1 each 03/14/19 22:00 03/16/19 21:30 Lidoderm Patch Removal MC Not Given DAILY@2200 [facility] Pantoprazole Sodium 40 mg 03/14/19 10:00 03/17/19 09:41 Protonix - PO 40 mg DAILY [facility] Administration Impression 1. CKD 2. fluid overload 3. morbid obesity 4. hx of bariatric surgery 5. DM 6. HTN 7. hypothyroidism 8. ovarian cyst 9. PNA 10. CHF Plan - volume status improving - cont lasix - cont arb - will see in office - monitor bp - will likely transition to po in next 24 hrs - repeat labs in am - cont arb for now as she has proteinuria - 2 gram sodium diet and fluid restriction - avoid nsaids
[2019-03-17] MEDS: ALBUTEROL SO4 0.083% IH SOL 2.5 MG/3 ML VIAL.NEB. NEB PRN (20:05)
[2019-03-17] MEDS: ATORVASTATIN CA 40 MG TABLET (FP) PO SCH (21:38)
[2019-03-17] MEDS: ACETAMINOPHEN 325 MG TABLET (FP) PO PRN (21:38)
[2019-03-17] MEDS: LIDOCAINE PATCH REMOVAL MC SCH (21:41)
[2019-03-18] MEDS ORDERED: PT OWN MED DRAWER 7, Y5N ONE (06:03)
[2019-03-18] MEDS: LEVOTHYROXINE NA 150 MCG TABLET PO SCH (06:25)
[2019-03-18] MEDS: FUROSEMIDE 40 MG/4 ML INJECTABLE VIAL IVPUSH SCH (06:25)
[2019-03-18] MEDS: INSULIN SLIDING SCALE (NOVOLOG) 1 VIAL SQ SCH ×4 (06:26→21:59)
--- NOTE | 2019-03-18 08:29 | PN ---
Progress Note (short form) - Note Progress Note: DISCHARGE HOME AWAITING TRILOGY DEVICE FOR HOME PULMONARY CARE ALL FORMS COMPLETED MEDS SENT TO PHARMACY [place] [facility] [facility] Problem List - Problems (1) Acute respiratory failure with hypoxemia Code(s): J96.01 - ACUTE RESPIRATORY FAILURE WITH HYPOXIA (2) CHF (congestive heart failure) Code(s): I50.9 - HEART FAILURE, UNSPECIFIED Qualifiers: Heart failure type: unspecified Heart failure chronicity: acute on chronic Qualified Code(s): I50.9 - Heart failure, unspecified (3) Hypoxemia requiring supplemental oxygen Code(s): R09.02 - HYPOXEMIA; Z99.81 - DEPENDENCE ON SUPPLEMENTAL OXYGEN (4) REBEKAH (acute kidney injury) Code(s): N17.9 - ACUTE KIDNEY FAILURE, UNSPECIFIED (5) Acute respiratory failure with hypoxia and hypercapnia Code(s): J96.01 - ACUTE RESPIRATORY FAILURE WITH HYPOXIA; J96.02 - ACUTE RESPIRATORY FAILURE WITH HYPERCAPNIA (6) BMI 50.0-59.9, adult Code(s): Z68.43 - BODY MASS INDEX (BMI) 50.0-59.9, ADULT (7) CKD (chronic kidney disease) Code(s): N18.9 - CHRONIC KIDNEY DISEASE, UNSPECIFIED (8) COPD (chronic obstructive pulmonary disease) Code(s): J44.9 - CHRONIC OBSTRUCTIVE PULMONARY DISEASE, UNSPECIFIED Qualifiers: COPD type: unspecified COPD Qualified Code(s): J44.9 - Chronic obstructive pulmonary disease, unspecified (9) Diabetes mellitus Code(s): E11.9 - TYPE 2 DIABETES MELLITUS WITHOUT COMPLICATIONS Qualifiers: Diabetes mellitus type: type 2 (10) HLD (hyperlipidemia) Code(s): E78.5 - HYPERLIPIDEMIA, UNSPECIFIED (11) HTN (hypertension) Code(s): I10 - ESSENTIAL (PRIMARY) HYPERTENSION (12) Hypothyroid Code(s): E03.9 - HYPOTHYROIDISM, UNSPECIFIED (13) Sleep apnea with use of continuous positive airway pressure (CPAP) Code(s): G47.30 - SLEEP APNEA, UNSPECIFIED (14) Type 2 diabetes mellitus with other diabetic kidney complication Code(s): E11.29 - TYPE 2 DIABETES MELLITUS W OTH DIABETIC KIDNEY COMPLICATION
[2019-03-18] MEDS: HEPARIN NA (PORCINE) 5,000 UNITS/ML 1ML VIAL SQ SCH ×2 (09:54→21:59)
[2019-03-18] MEDS: PANTOPRAZOLE 40 MG TABLET PO SCH (09:54)
[2019-03-18] MEDS: LIDOCAINE 5% TOPICAL PATCH TP SCH (09:54)
[2019-03-18] MEDS: METOPROLOL TARTRATE 50 MG TABLET (FP) PO SCH (09:55)
[2019-03-18] MEDS: LOSARTAN POTASSIUM 50 MG TABLET (FP) PO SCH (09:55)
[2019-03-18] MEDS: FERROUS SO4 325 MG TABLET (FP) PO SCH (09:56)
[2019-03-18] MEDS: LORATADINE 10 MG TABLET PO SCH (09:56)
[2019-03-18] MEDS ORDERED: ONDANSETRON *ODT* 4 MG TABLET SL PRN (11:36)
--- NOTE | 2019-03-18 12:26 | PN ---
Progress Note, Physician History of Present Illness: seen and examined today in nad. walking in hallways with pt. no overnight events. no new complaints. - Current Medication List Current Medications: Active Medications Acetaminophen (Tylenol -) 650 mg PO Q6H PRN PRN Reason: PAIN LEVEL 5-10/FEVER Last Admin: 03/17/19 21:38 Dose: 650 mg Albuterol Sulfate (Ventolin 0.083% Nebulizer Soln -) 1 amp NEB Q4H PRN PRN Reason: SHORT OF BREATH/WHEEZING Last Admin: 03/17/19 20:05 Dose: 1 amp Atorvastatin Calcium (Lipitor -) 40 mg PO HS [facility] Last Admin: 03/17/19 21:38 Dose: 40 mg Benzocaine/Menthol (Cepacol Lozenge -) 1 each MM Q2H PRN PRN Reason: SORE THROAT Ferrous Sulfate (Feosol -) 325 mg PO DAILY [facility] Last Admin: 03/18/19 09:56 Dose: 325 mg Furosemide (Lasix Injection -) 80 mg IVPUSH BIDLASIX [facility] Last Admin: 03/18/19 06:25 Dose: 80 mg Guaifenesin (Diabetic Tussin Dm -) 5 ml PO Q6H PRN PRN Reason: COUGH Last Admin: 03/16/19 07:06 Dose: 5 ml Heparin Sodium (Porcine) (Heparin -) 5,000 unit SQ BID [facility] Last Admin: 03/18/19 09:54 Dose: 5,000 unit Insulin Aspart (Novolog Vial Sliding Scale -) 1 vial SQ ACHS [facility]; Protocol Last Admin: 03/18/19 11:44 Dose: Not Given Levothyroxine Sodium (Synthroid -) 150 mcg PO ACBK [facility] Last Admin: 03/18/19 06:25 Dose: 150 mcg Lidocaine (Lidoderm Patch -) 1 patch TP DAILY [facility] Last Admin: 03/18/19 09:54 Dose: 1 patch Loratadine (Claritin -) 10 mg PO DAILY [facility] Last Admin: 03/18/19 09:56 Dose: 10 mg Losartan Potassium (Cozaar -) 100 mg PO DAILY [facility] Last Admin: 03/18/19 09:55 Dose: 100 mg Metoprolol Tartrate (Lopressor -) 100 mg PO DAILY [facility] Last Admin: 03/18/19 09:55 Dose: 100 mg Miscellaneous (Lidoderm Patch Removal) 1 each MC DAILY@2200 [facility] Last Admin: 03/17/19 21:41 Dose: Not Given Ondansetron HCl (Zofran Odt -) 4 mg SL Q6H PRN PRN Reason: NAUSEA Last Admin: 03/18/19 11:42 Dose: 4 mg Pantoprazole Sodium (Protonix -) 40 mg PO DAILY [facility] Last Admin: 03/18/19 09:54 Dose: 40 mg - Objective Vital Signs: Vital Signs Temperature 97.9 F 03/18/19 08:28 Pulse Rate 88 03/18/19 08:28 Respiratory Rate 18 03/18/19 10:00 Blood Pressure 121/71 03/18/19 08:28 O2 Sat by Pulse Oximetry (%) 100 03/18/19 10:00 Constitutional: Yes: No Distress, Calm Eyes: Yes: Conjunctiva Clear, EOM Intact HENT: Yes: Atraumatic, Normocephalic Neck: Yes: Supple, Trachea Midline Cardiovascular: Yes: Regular Rate and Rhythm, S1, S2. No: Bradycardia, Tachycardia, Pulse Irregular, Bruit, JVD, Gallop, Murmur, Rub, S3, S4, Varicosities Respiratory: Yes: Regular, Diminished, On Nasal O2. No: Rales, Rhonchi, SOB, Wheezes Gastrointestinal: Yes: Normal Bowel Sounds, Soft. No: Distention, Tenderness Extremities: Yes: WNL Edema: LLE: Trace, RLE: Trace Peripheral Pulses WNL: Yes Neurological: Yes: Alert, Oriented Psychiatric: Yes: Alert, Oriented Labs: CBC, BMP 03/17/19 06:30 03/17/19 06:30 - ....Imaging Chest X-ray: Report Reviewed, Image Reviewed EKG: Report Reviewed, Image Reviewed Other: Report Reviewed, Image Reviewed (tele-no sig arrhythmias recorded) Assessment/Plan 49year oldwoman with pmh HTN, DMII, morbid obesity, CKD adm [facility] for elective gastric sleeve 10/30/17 post op BANDAR and uncontrolled HTN, chronic diastolic CHF. She saw pulmonary Dr. Seo 11/13/18 who felt she did not have COPD but that she may have GERD contributing to her symptoms given her h/o bariatric surgery. She presents with worsening SOB. Noted with fluid overload on CXR. Echo 11/15/18 TDS. Grossly normal LV and RV. Mild LA dilatation. Mild MR and mild TR. Diastolic CHF Acute on chronic CHF near euvolemic Was on Lasix 80 mg IVSS BID Change to torsemide 40mg po bid no additional inpatient cardiac workup is needed at this time. [facility] close outpatient fup.
[2019-03-18] MEDS: TORSEMIDE 20 MG TABLET (FP) PO SCH (12:51)
--- NOTE | 2019-03-18 14:18 | PN ---
Progress Note, Physician History of Present Illness: Pt seen and examined at bedside. She is awake and alert. She feels that her breathing is improving. - Current Medication List Current Medications: Active Medications Acetaminophen (Tylenol -) 650 mg PO Q6H PRN PRN Reason: PAIN LEVEL 5-10/FEVER Last Admin: 03/17/19 21:38 Dose: 650 mg Albuterol Sulfate (Ventolin 0.083% Nebulizer Soln -) 1 amp NEB Q4H PRN PRN Reason: SHORT OF BREATH/WHEEZING Last Admin: 03/17/19 20:05 Dose: 1 amp Atorvastatin Calcium (Lipitor -) 40 mg PO HS [facility] Last Admin: 03/17/19 21:38 Dose: 40 mg Benzocaine/Menthol (Cepacol Lozenge -) 1 each MM Q2H PRN PRN Reason: SORE THROAT Ferrous Sulfate (Feosol -) 325 mg PO DAILY [facility] Last Admin: 03/18/19 09:56 Dose: 325 mg Guaifenesin (Diabetic Tussin Dm -) 5 ml PO Q6H PRN PRN Reason: COUGH Last Admin: 03/16/19 07:06 Dose: 5 ml Heparin Sodium (Porcine) (Heparin -) 5,000 unit SQ BID [facility] Last Admin: 03/18/19 09:54 Dose: 5,000 unit Insulin Aspart (Novolog Vial Sliding Scale -) 1 vial SQ ACHS [facility]; Protocol Last Admin: 03/18/19 11:44 Dose: Not Given Levothyroxine Sodium (Synthroid -) 150 mcg PO ACBK [facility] Last Admin: 03/18/19 06:25 Dose: 150 mcg Lidocaine (Lidoderm Patch -) 1 patch TP DAILY [facility] Last Admin: 03/18/19 09:54 Dose: 1 patch Loratadine (Claritin -) 10 mg PO DAILY [facility] Last Admin: 03/18/19 09:56 Dose: 10 mg Losartan Potassium (Cozaar -) 100 mg PO DAILY [facility] Last Admin: 03/18/19 09:55 Dose: 100 mg Metoprolol Tartrate (Lopressor -) 100 mg PO DAILY [facility] Last Admin: 03/18/19 09:55 Dose: 100 mg Miscellaneous (Lidoderm Patch Removal) 1 each MC DAILY@2200 [facility] Last Admin: 03/17/19 21:41 Dose: Not Given Ondansetron HCl (Zofran Odt -) 4 mg SL Q6H PRN PRN Reason: NAUSEA Last Admin: 03/18/19 11:42 Dose: 4 mg Pantoprazole Sodium (Protonix -) 40 mg PO DAILY [facility] Last Admin: 03/18/19 09:54 Dose: 40 mg Torsemide (Demadex -) 40 mg PO BIDLASIX [facility] Last Admin: 03/18/19 12:51 Dose: 40 mg - Objective Vital Signs: Vital Signs Temperature 97.9 F 03/18/19 08:28 Pulse Rate 88 03/18/19 08:28 Respiratory Rate 18 03/18/19 10:00 Blood Pressure 121/71 03/18/19 08:28 O2 Sat by Pulse Oximetry (%) 100 03/18/19 10:00 Constitutional: Yes: Calm Eyes: Yes: Conjunctiva Clear HENT: Yes: Atraumatic Neck: Yes: Supple Cardiovascular: Yes: S1, S2 Respiratory: Yes: CTA Bilaterally Gastrointestinal: Yes: Soft Genitourinary: Yes: WNL Musculoskeletal: Yes: WNL Edema: Yes Edema: LLE: Trace, RLE: Trace Neurological: Yes: Oriented Psychiatric: Yes: Oriented Labs: CBC, BMP 03/17/19 06:30 03/17/19 06:30 Assessment/Plan Current Medications Generic Name Dose Route Start Last Admin Trade Name Freq PRN Reason Stop Dose Admin Acetaminophen 650 mg 03/13/19 16:10 03/17/19 21:38 Tylenol - PO 650 mg Q6H PRN Administration PAIN LEVEL 5-10/FEVER Albuterol Sulfate 1 amp 03/13/19 16:31 03/17/19 20:05 Ventolin 0.083% Nebulizer Soln - NEB 1 amp Q4H PRN Administration SHORT OF BREATH/WHEEZING Atorvastatin Calcium 40 mg 03/13/19 22:00 03/17/19 21:38 Lipitor - PO 40 mg HS [facility] Administration Benzocaine/Menthol 1 each 03/14/19 18:34 Cepacol Lozenge - MM Q2H PRN SORE THROAT Ferrous Sulfate 325 mg 03/14/19 10:00 03/18/19 09:56 Feosol - PO 325 mg DAILY [facility] Administration Guaifenesin 5 ml 03/14/19 18:35 03/16/19 07:06 Diabetic Tussin Dm - PO 5 ml Q6H PRN Administration COUGH Heparin Sodium (Porcine) 5,000 unit 03/13/19 22:00 03/18/19 09:54 Heparin - SQ 5,000 unit BID [facility] Administration Insulin Aspart 1 vial 03/13/19 22:00 03/18/19 11:44 Novolog Vial Sliding Scale - SQ Not Given ACHS [facility] Protocol Levothyroxine Sodium 150 mcg 03/14/19 07:00 03/18/19 06:25 Synthroid - PO 150 mcg ACBK [facility] Administration Lidocaine 1 patch 03/14/19 10:00 03/18/19 09:54 Lidoderm Patch - TP 1 patch DAILY [facility] Administration Loratadine 10 mg 03/14/19 10:00 03/18/19 09:56 Claritin - PO 10 mg DAILY [facility] Administration Losartan Potassium 100 mg 03/16/19 10:00 03/18/19 09:55 Cozaar - PO 100 mg DAILY [facility] Administration Metoprolol Tartrate 100 mg 03/14/19 10:00 03/18/19 09:55 Lopressor - PO 100 mg DAILY [facility] Administration Miscellaneous 1 each 03/14/19 22:00 03/17/19 21:41 Lidoderm Patch Removal MC Not Given DAILY@2200 [facility] Ondansetron HCl 4 mg 03/18/19 11:36 03/18/19 11:42 Zofran Odt - SL 4 mg Q6H PRN Administration NAUSEA Pantoprazole Sodium 40 mg 03/14/19 10:00 03/18/19 09:54 Protonix - PO 40 mg DAILY [facility] Administration Torsemide 40 mg 03/18/19 12:30 03/18/19 12:51 Demadex - PO 40 mg BIDLASIX [facility] Administration Impression 1. CKD 2. fluid overload 3. morbid obesity 4. hx of bariatric surgery 5. DM 6. HTN 7. hypothyroidism 8. ovarian cyst 9. PNA 10. CHF Plan - cont torsemide - cont losartan - pt has office visit scheduled - encourage po intake - 2 gram sodium diet and fluid restriction - avoid nsaids
[2019-03-18] MEDS: ATORVASTATIN CA 40 MG TABLET (FP) PO SCH (21:59)
[2019-03-18] MEDS: LIDOCAINE PATCH REMOVAL MC SCH (21:59)
[2019-03-18] MEDS: ACETAMINOPHEN 325 MG TABLET (FP) PO PRN (22:01)
[2019-03-19] MEDS ORDERED: PT OWN MED DRAWER 7, Y5N ONE (05:57)
[2019-03-19] MEDS: LEVOTHYROXINE NA 150 MCG TABLET PO SCH (06:11)
[2019-03-19] MEDS: TORSEMIDE 20 MG TABLET (FP) PO SCH ×2 (06:11→13:57)
[2019-03-19] MEDS: INSULIN SLIDING SCALE (NOVOLOG) 1 VIAL SQ SCH ×4 (06:12→21:46)
[2019-03-19] MEDS: METOPROLOL TARTRATE 50 MG TABLET (FP) PO SCH (09:09)
[2019-03-19] MEDS: PANTOPRAZOLE 40 MG TABLET PO SCH (09:09)
[2019-03-19] MEDS: LIDOCAINE 5% TOPICAL PATCH TP SCH (09:09)
[2019-03-19] MEDS: FERROUS SO4 325 MG TABLET (FP) PO SCH (09:09)
[2019-03-19] MEDS: LOSARTAN POTASSIUM 50 MG TABLET (FP) PO SCH (09:09)
[2019-03-19] MEDS: HEPARIN NA (PORCINE) 5,000 UNITS/ML 1ML VIAL SQ SCH ×2 (09:09→21:45)
[2019-03-19] MEDS: LORATADINE 10 MG TABLET PO SCH (09:09)
--- NOTE | 2019-03-19 09:46 | PN ---
Progress Note (short form) - Note Progress Note: I SPOKE WITH [employer] THE [employer] FROM [employer] AND [employer]. DUE TO THE PATIENTS CHRONIC RESPIRATORY CONDITION COPD WITH RESTRICTIVE AIRWAY, CONGESTIVE HEART FAILURE THE PATIENT NEEDS THE TRILOGY MACHINE FOR HOME CARE AND MAINTENANCE TO AVOID REPETITIVE ADMISSIONS TO THE HOSPITAL FROM DECOMPENSATION AND EXACERBATIONS OF CHF/COPD. Problem List - Problems (1) Acute respiratory failure with hypoxemia Code(s): J96.01 - ACUTE RESPIRATORY FAILURE WITH HYPOXIA (2) CHF (congestive heart failure) Code(s): I50.9 - HEART FAILURE, UNSPECIFIED Qualifiers: Heart failure type: unspecified Heart failure chronicity: acute on chronic Qualified Code(s): I50.9 - Heart failure, unspecified (3) Hypoxemia requiring supplemental oxygen Code(s): R09.02 - HYPOXEMIA; Z99.81 - DEPENDENCE ON SUPPLEMENTAL OXYGEN (4) REBEKAH (acute kidney injury) Code(s): N17.9 - ACUTE KIDNEY FAILURE, UNSPECIFIED (5) Acute respiratory failure with hypoxia and hypercapnia Code(s): J96.01 - ACUTE RESPIRATORY FAILURE WITH HYPOXIA; J96.02 - ACUTE RESPIRATORY FAILURE WITH HYPERCAPNIA (6) BMI 50.0-59.9, adult Code(s): Z68.43 - BODY MASS INDEX (BMI) 50.0-59.9, ADULT (7) CKD (chronic kidney disease) Code(s): N18.9 - CHRONIC KIDNEY DISEASE, UNSPECIFIED (8) COPD (chronic obstructive pulmonary disease) Code(s): J44.9 - CHRONIC OBSTRUCTIVE PULMONARY DISEASE, UNSPECIFIED Qualifiers: COPD type: unspecified COPD Qualified Code(s): J44.9 - Chronic obstructive pulmonary disease, unspecified (9) Diabetes mellitus Code(s): E11.9 - TYPE 2 DIABETES MELLITUS WITHOUT COMPLICATIONS Qualifiers: Diabetes mellitus type: type 2 (10) HLD (hyperlipidemia) Code(s): E78.5 - HYPERLIPIDEMIA, UNSPECIFIED (11) HTN (hypertension) Code(s): I10 - ESSENTIAL (PRIMARY) HYPERTENSION (12) Hypothyroid Code(s): E03.9 - HYPOTHYROIDISM, UNSPECIFIED (13) Sleep apnea with use of continuous positive airway pressure (CPAP) Code(s): G47.30 - SLEEP APNEA, UNSPECIFIED (14) Type 2 diabetes mellitus with other diabetic kidney complication Code(s): E11.29 - TYPE 2 DIABETES MELLITUS W OTH DIABETIC KIDNEY COMPLICATION
--- NOTE | 2019-03-19 11:43 | PN ---
Progress Note, Physician Chief Complaint: Presently comfortable History of Present Illness: This is a 49 jorge old female with a PMH of HTN, DMII, morbid obesity, CKD. She was admitted to [facility] for an elective gastric sleeve 10/30/17 post op BANDAR and uncontrolled HTN, chronic diastolic CHF. She saw pulmonary Dr. Seo 11/13/18 who felt she did not have COPD but that she may have GERD contributing to her symptoms given her h/o bariatric surgery. She presents with worsening SOB. Noted with fluid overload on CXR. 03/19/2019 Symptomatically improved - Current Medication List Current Medications: Active Medications Acetaminophen (Tylenol -) 650 mg PO Q6H PRN PRN Reason: PAIN LEVEL 5-10/FEVER Last Admin: 03/18/19 22:01 Dose: 650 mg Atorvastatin Calcium (Lipitor -) 40 mg PO HS [facility] Last Admin: 03/18/19 21:59 Dose: 40 mg Benzocaine/Menthol (Cepacol Lozenge -) 1 each MM Q2H PRN PRN Reason: SORE THROAT Ferrous Sulfate (Feosol -) 325 mg PO DAILY [facility] Last Admin: 03/19/19 09:09 Dose: 325 mg Guaifenesin (Diabetic Tussin Dm -) 5 ml PO Q6H PRN PRN Reason: COUGH Last Admin: 03/16/19 07:06 Dose: 5 ml Heparin Sodium (Porcine) (Heparin -) 5,000 unit SQ BID [facility] Last Admin: 03/19/19 09:09 Dose: 5,000 unit Insulin Aspart (Novolog Vial Sliding Scale -) 1 vial SQ ACHS [facility]; Protocol Last Admin: 03/19/19 06:12 Dose: Not Given Levothyroxine Sodium (Synthroid -) 150 mcg PO ACBK [facility] Last Admin: 03/19/19 06:11 Dose: 150 mcg Lidocaine (Lidoderm Patch -) 1 patch TP DAILY [facility] Last Admin: 03/19/19 09:09 Dose: 1 patch Loratadine (Claritin -) 10 mg PO DAILY [facility] Last Admin: 03/19/19 09:09 Dose: 10 mg Losartan Potassium (Cozaar -) 100 mg PO DAILY [facility] Last Admin: 03/19/19 09:09 Dose: 100 mg Metoprolol Tartrate (Lopressor -) 100 mg PO DAILY [facility] Last Admin: 02/12/20 09:09 Dose: 100 mg Miscellaneous (Lidoderm Patch Removal) 1 each MC DAILY@2200 [facility] Last Admin: 03/18/19 21:59 Dose: 1 each Ondansetron HCl (Zofran Odt -) 4 mg SL Q6H PRN PRN Reason: NAUSEA Last Admin: 03/18/19 11:42 Dose: 4 mg Pantoprazole Sodium (Protonix -) 40 mg PO DAILY [facility] Last Admin: 03/19/19 09:09 Dose: 40 mg Torsemide (Demadex -) 40 mg PO BIDLASIX [facility] Last Admin: 03/19/19 06:11 Dose: 40 mg - Objective Vital Signs: Vital Signs Temperature 97.9 F 03/19/19 09:14 Pulse Rate 86 03/19/19 09:14 Respiratory Rate 15 03/19/19 09:14 Blood Pressure 128/60 03/19/19 09:14 O2 Sat by Pulse Oximetry (%) 100 03/19/19 00:20 Constitutional: Yes: No Distress Eyes: Yes: WNL Neck: Yes: WNL Cardiovascular: Yes: Regular Rate and Rhythm, S1, S2 Respiratory: Yes: Dullness (at bases) Gastrointestinal: Yes: Soft Edema: Yes (Brawny lower extremities) Neurological: Yes: Alert, Oriented Labs: CBC, BMP 03/17/19 06:30 03/17/19 06:30 Assessment/Plan 49year oldwoman with pmh HTN, DMII, morbid obesity, CKD adm [facility] for elective gastric sleeve 10/30/17 post op BANDAR and uncontrolled HTN, chronic diastolic CHF. She saw pulmonary Dr. Seo 11/13/18 who felt she did not have COPD but that she may have GERD contributing to her symptoms given her h/o bariatric surgery. She presents with worsening SOB. Noted with fluid overload on CXR. Echo 11/15/18 TDS. Grossly normal LV and RV. Mild LA dilatation. Mild MR and mild TR. Diastolic CHF Clinically improved Acute on chronic diastolic CHF Conitnue PO diuretics Continue torsemide 40 mg PO BID
--- NOTE | 2019-03-19 13:37 | PN ---
Progress Note, Physician History of Present Illness: Pt seen and examined at bedside. She is awake and alert. She denies shortness of breath. - Current Medication List Current Medications: Active Medications Acetaminophen (Tylenol -) 650 mg PO Q6H PRN PRN Reason: PAIN LEVEL 5-10/FEVER Last Admin: 03/18/19 22:01 Dose: 650 mg Atorvastatin Calcium (Lipitor -) 40 mg PO HS [facility] Last Admin: 03/18/19 21:59 Dose: 40 mg Benzocaine/Menthol (Cepacol Lozenge -) 1 each MM Q2H PRN PRN Reason: SORE THROAT Ferrous Sulfate (Feosol -) 325 mg PO DAILY [facility] Last Admin: 03/19/19 09:09 Dose: 325 mg Guaifenesin (Diabetic Tussin Dm -) 5 ml PO Q6H PRN PRN Reason: COUGH Last Admin: 03/16/19 07:06 Dose: 5 ml Heparin Sodium (Porcine) (Heparin -) 5,000 unit SQ BID [facility] Last Admin: 03/19/19 09:09 Dose: 5,000 unit Insulin Aspart (Novolog Vial Sliding Scale -) 1 vial SQ [facility]; Protocol Last Admin: 03/19/19 11:59 Dose: Not Given Levothyroxine Sodium (Synthroid -) 150 mcg PO ACBK [facility] Last Admin: 03/19/19 06:11 Dose: 150 mcg Lidocaine (Lidoderm Patch -) 1 patch TP DAILY [facility] Last Admin: 03/19/19 09:09 Dose: 1 patch Loratadine (Claritin -) 10 mg PO DAILY [facility] Last Admin: 03/19/19 09:09 Dose: 10 mg Losartan Potassium (Cozaar -) 100 mg PO DAILY [facility] Last Admin: 03/19/19 09:09 Dose: 100 mg Metoprolol Tartrate (Lopressor -) 100 mg PO DAILY [facility] Last Admin: 03/19/19 09:09 Dose: 100 mg Miscellaneous (Lidoderm Patch Removal) 1 each MC DAILY@2200 [facility] Last Admin: 03/18/19 21:59 Dose: 1 each Ondansetron HCl (Zofran Odt -) 4 mg SL Q6H PRN PRN Reason: NAUSEA Last Admin: 03/18/19 11:42 Dose: 4 mg Pantoprazole Sodium (Protonix -) 40 mg PO DAILY [facility] Last Admin: 03/19/19 09:09 Dose: 40 mg Torsemide (Demadex -) 40 mg PO BIDLASIX [facility] Last Admin: 03/19/19 06:11 Dose: 40 mg - Objective Vital Signs: Vital Signs Temperature 97.9 F 03/19/19 09:14 Pulse Rate 86 03/19/19 09:14 Respiratory Rate 15 03/19/19 09:14 Blood Pressure 128/60 03/19/19 09:14 O2 Sat by Pulse Oximetry (%) 100 03/19/19 00:20 Constitutional: Yes: Calm Eyes: Yes: Conjunctiva Clear HENT: Yes: Atraumatic Neck: Yes: Supple Cardiovascular: Yes: S1, S2 Respiratory: Yes: CTA Bilaterally Gastrointestinal: Yes: Soft Genitourinary: Yes: WNL Musculoskeletal: Yes: WNL Edema: Yes Edema: LLE: 1+, RLE: 1+ Neurological: Yes: Oriented Psychiatric: Yes: Oriented Labs: CBC, BMP 03/17/19 06:30 03/17/19 06:30 Assessment/Plan Current Medications Generic Name Dose Route Start Last Admin Trade Name Freq PRN Reason Stop Dose Admin Acetaminophen 650 mg 03/13/19 16:10 03/18/19 22:01 Tylenol - PO 650 mg Q6H PRN Administration PAIN LEVEL 5-10/FEVER Atorvastatin Calcium 40 mg 03/13/19 22:00 03/18/19 21:59 Lipitor - PO 40 mg HS [facility] Administration Benzocaine/Menthol 1 each 03/14/19 18:34 Cepacol Lozenge - MM Q2H PRN SORE THROAT Ferrous Sulfate 325 mg 03/14/19 10:00 03/19/19 09:09 Feosol - PO 325 mg DAILY [facility] Administration Guaifenesin 5 ml 03/14/19 18:35 03/16/19 07:06 Diabetic Tussin Dm - PO 5 ml Q6H PRN Administration COUGH Heparin Sodium (Porcine) 5,000 unit 03/13/19 22:00 03/19/19 09:09 Heparin - SQ 5,000 unit BID [facility] Administration Insulin Aspart 1 vial 03/13/19 22:00 03/19/19 11:59 Novolog Vial Sliding Scale - SQ Not Given ACHS [facility] Protocol Levothyroxine Sodium 150 mcg 03/14/19 07:00 03/19/19 06:11 Synthroid - PO 150 mcg ACBK [facility] Administration Lidocaine 1 patch 03/14/19 10:00 03/19/19 09:09 Lidoderm Patch - TP 1 patch DAILY [facility] Administration Loratadine 10 mg 03/14/19 10:00 03/19/19 09:09 Claritin - PO 10 mg DAILY [facility] Administration Losartan Potassium 100 mg 03/16/19 10:00 03/19/19 09:09 Cozaar - PO 100 mg DAILY [facility] Administration Metoprolol Tartrate 100 mg 03/14/19 10:00 03/19/19 09:09 Lopressor - PO 100 mg DAILY [facility] Administration Miscellaneous 1 each 03/14/19 22:00 03/18/19 21:59 Lidoderm Patch Removal MC 1 each DAILY@2200 [facility] Administration Ondansetron HCl 4 mg 03/18/19 11:36 03/18/19 11:42 Zofran Odt - SL 4 mg Q6H PRN Administration NAUSEA Pantoprazole Sodium 40 mg 03/14/19 10:00 03/19/19 09:09 Protonix - PO 40 mg DAILY [facility] Administration Torsemide 40 mg 03/18/19 12:30 03/19/19 06:11 Demadex - PO 40 mg BIDLASIX [facility] Administration Impression 1. CKD 2. fluid overload 3. morbid obesity 4. hx of bariatric surgery 5. DM 6. HTN 7. hypothyroidism 8. ovarian cyst 9. PNA 10. CHF Plan - pt pending bipap for home - cont torsemide - can see in office - check bmp - 2 gram sodium diet and fluid restriction - avoid nsaids
[2019-03-19] MEDS: ACETAMINOPHEN 325 MG TABLET (FP) PO PRN (21:44)
[2019-03-19] MEDS: ATORVASTATIN CA 40 MG TABLET (FP) PO SCH (21:45)
[2019-03-19] MEDS: LIDOCAINE PATCH REMOVAL MC SCH (21:46)
[2019-03-20] MEDS ORDERED: PT OWN MED DRAWER 7, Y5N ONE ×2 (06:18→07:51)
[2019-03-20] MEDS: TORSEMIDE 20 MG TABLET (FP) PO SCH ×2 (06:23→14:33)
[2019-03-20] MEDS: LEVOTHYROXINE NA 150 MCG TABLET PO SCH (06:24)
[2019-03-20] MEDS: INSULIN SLIDING SCALE (NOVOLOG) 1 VIAL SQ SCH ×2 (06:25→12:16)
[2019-03-20] MEDS: PANTOPRAZOLE 40 MG TABLET PO SCH (09:26)
[2019-03-20] MEDS: HEPARIN NA (PORCINE) 5,000 UNITS/ML 1ML VIAL SQ SCH (09:26)
[2019-03-20] MEDS: FERROUS SO4 325 MG TABLET (FP) PO SCH (09:26)
[2019-03-20] MEDS: METOPROLOL TARTRATE 50 MG TABLET (FP) PO SCH (09:26)
[2019-03-20] MEDS: LORATADINE 10 MG TABLET PO SCH (09:26)
[2019-03-20] MEDS: LOSARTAN POTASSIUM 50 MG TABLET (FP) PO SCH (09:26)
[2019-03-20] MEDS: LIDOCAINE 5% TOPICAL PATCH TP SCH (09:26)
--- NOTE | 2019-03-20 10:42 | PN ---
Progress Note, Physician Chief Complaint: COPD Exacerbation History of Present Illness: Previous notes and events reviewed awake and alert NAD denies chest pain or SOB no acute events overnight patient is being discharged home today - Current Medication List Current Medications: Active Medications Acetaminophen (Tylenol -) 650 mg PO Q6H PRN PRN Reason: PAIN LEVEL 5-10/FEVER Last Admin: 03/19/19 21:44 Dose: 650 mg Atorvastatin Calcium (Lipitor -) 40 mg PO HS [facility] Last Admin: 03/19/19 21:45 Dose: 40 mg Benzocaine/Menthol (Cepacol Lozenge -) 1 each MM Q2H PRN PRN Reason: SORE THROAT Ferrous Sulfate (Feosol -) 325 mg PO DAILY [facility] Last Admin: 03/20/19 09:26 Dose: 325 mg Guaifenesin (Diabetic Tussin Dm -) 5 ml PO Q6H PRN PRN Reason: COUGH Last Admin: 03/16/19 07:06 Dose: 5 ml Heparin Sodium (Porcine) (Heparin -) 5,000 unit SQ BID [facility] Last Admin: 03/20/19 09:26 Dose: 5,000 unit Insulin Aspart (Novolog Vial Sliding Scale -) 1 vial SQ [facility]; Protocol Last Admin: 03/20/19 06:25 Dose: Not Given Levothyroxine Sodium (Synthroid -) 150 mcg PO ACBK [facility] Last Admin: 03/20/19 06:24 Dose: 150 mcg Lidocaine (Lidoderm Patch -) 1 patch TP DAILY [facility] Last Admin: 03/20/19 09:26 Dose: 1 patch Loratadine (Claritin -) 10 mg PO DAILY [facility] Last Admin: 03/20/19 09:26 Dose: 10 mg Losartan Potassium (Cozaar -) 100 mg PO DAILY [facility] Last Admin: 03/20/19 09:26 Dose: 100 mg Metoprolol Tartrate (Lopressor -) 100 mg PO DAILY [facility] Last Admin: 03/20/19 09:26 Dose: 100 mg Miscellaneous (Lidoderm Patch Removal) 1 each MC DAILY@2200 [facility] Last Admin: 03/19/19 21:46 Dose: 1 each Ondansetron HCl (Zofran Odt -) 4 mg SL Q6H PRN PRN Reason: NAUSEA Last Admin: 03/18/19 11:42 Dose: 4 mg Pantoprazole Sodium (Protonix -) 40 mg PO DAILY [facility] Last Admin: 03/20/19 09:26 Dose: 40 mg Torsemide (Demadex -) 40 mg PO BIDLASIX [facility] Last Admin: 03/20/19 06:23 Dose: 40 mg - Objective Vital Signs: Vital Signs Temperature 97.9 F 03/20/19 09:30 Pulse Rate 85 03/20/19 09:30 Respiratory Rate 16 03/20/19 09:30 Blood Pressure 134/73 03/20/19 09:30 O2 Sat by Pulse Oximetry (%) 100 03/20/19 04:13 Constitutional: Yes: No Distress, Calm, Obese Eyes: Yes: Conjunctiva Clear HENT: Yes: Atraumatic Cardiovascular: Yes: Regular Rate and Rhythm Respiratory: Yes: Regular, Diminished Gastrointestinal: Yes: Normal Bowel Sounds, Soft, Abdomen, Obese Musculoskeletal: Yes: WNL Extremities: Yes: WNL Edema: Yes Edema: LLE: Trace, RLE: Trace Neurological: Yes: Alert, Oriented Psychiatric: Yes: Alert, Oriented Labs: CBC, BMP 03/17/19 06:30 03/17/19 06:30 Problem List - Problems (1) Acute respiratory failure with hypoxemia Assessment/Plan: -Pulmonary consult -CXR shows large heart with fullness of the tasneem and progressive congestive changes with possible superimposed bilateral infiltrates -Bipap -keep SpO2 >90% -bronchodilators -BNP 1204.3 -aspiration precaution -Furosemide BID Code(s): J96.01 - ACUTE RESPIRATORY FAILURE WITH HYPOXIA (2) CHF (congestive heart failure) Code(s): I50.9 - HEART FAILURE, UNSPECIFIED Qualifiers: Heart failure type: unspecified Heart failure chronicity: acute on chronic Qualified Code(s): I50.9 - Heart failure, unspecified (3) Hypoxemia requiring supplemental oxygen Code(s): R09.02 - HYPOXEMIA; Z99.81 - DEPENDENCE ON SUPPLEMENTAL OXYGEN (4) CKD (chronic kidney disease) Code(s): N18.9 - CHRONIC KIDNEY DISEASE, UNSPECIFIED (5) COPD (chronic obstructive pulmonary disease) Code(s): J44.9 - CHRONIC OBSTRUCTIVE PULMONARY DISEASE, UNSPECIFIED Qualifiers: COPD type: unspecified COPD Qualified Code(s): J44.9 - Chronic obstructive pulmonary disease, unspecified (6) Diabetes mellitus Code(s): E11.9 - TYPE 2 DIABETES MELLITUS WITHOUT COMPLICATIONS Qualifiers: Diabetes mellitus type: type 2 (7) HLD (hyperlipidemia) Code(s): E78.5 - HYPERLIPIDEMIA, UNSPECIFIED (8) HTN (hypertension) Code(s): I10 - ESSENTIAL (PRIMARY) HYPERTENSION (9) Hyperkalemia Code(s): E87.5 - HYPERKALEMIA (10) Hypothyroid Code(s): E03.9 - HYPOTHYROIDISM, UNSPECIFIED (11) Morbid (severe) obesity due to excess calories Code(s): E66.01 - MORBID (SEVERE) OBESITY DUE TO EXCESS CALORIES Assessment/Plan see problem list dvt ppx patient is being dicharged home today after arrival of [facility]
[2019-03-20 14:06] VITALS: BP 150/65; PULSE 86; TEMP 98
--- NOTE | 2019-03-20 14:49 | PN ---
Progress Note, Physician History of Present Illness: Pt seen and examined at bedside. She is awake and alert. She feels that her breathing is improving. - Current Medication List Current Medications: Active Medications Acetaminophen (Tylenol -) 650 mg PO Q6H PRN PRN Reason: PAIN LEVEL 5-10/FEVER Last Admin: 03/19/19 21:44 Dose: 650 mg Atorvastatin Calcium (Lipitor -) 40 mg PO HS [facility] Last Admin: 03/19/19 21:45 Dose: 40 mg Benzocaine/Menthol (Cepacol Lozenge -) 1 each MM Q2H PRN PRN Reason: SORE THROAT Ferrous Sulfate (Feosol -) 325 mg PO DAILY [facility] Last Admin: 03/20/19 09:26 Dose: 325 mg Guaifenesin (Diabetic Tussin Dm -) 5 ml PO Q6H PRN PRN Reason: COUGH Last Admin: 03/16/19 07:06 Dose: 5 ml Heparin Sodium (Porcine) (Heparin -) 5,000 unit SQ BID [facility] Last Admin: 03/20/19 09:26 Dose: 5,000 unit Insulin Aspart (Novolog Vial Sliding Scale -) 1 vial SQ [facility]; Protocol Last Admin: 03/20/19 12:16 Dose: Not Given Levothyroxine Sodium (Synthroid -) 150 mcg PO ACBK [facility] Last Admin: 03/20/19 06:24 Dose: 150 mcg Lidocaine (Lidoderm Patch -) 1 patch TP DAILY [facility] Last Admin: 03/20/19 09:26 Dose: 1 patch Loratadine (Claritin -) 10 mg PO DAILY [facility] Last Admin: 03/20/19 09:26 Dose: 10 mg Losartan Potassium (Cozaar -) 100 mg PO DAILY [facility] Last Admin: 03/20/19 09:26 Dose: 100 mg Metoprolol Tartrate (Lopressor -) 100 mg PO DAILY [facility] Last Admin: 03/20/19 09:26 Dose: 100 mg Miscellaneous (Lidoderm Patch Removal) 1 each MC DAILY@2200 [facility] Last Admin: 03/19/19 21:46 Dose: 1 each Ondansetron HCl (Zofran Odt -) 4 mg SL Q6H PRN PRN Reason: NAUSEA Last Admin: 03/18/19 11:42 Dose: 4 mg Pantoprazole Sodium (Protonix -) 40 mg PO DAILY [facility] Last Admin: 03/20/19 09:26 Dose: 40 mg Torsemide (Demadex -) 40 mg PO BIDLASIX [facility] Last Admin: 03/20/19 14:33 Dose: 40 mg - Objective Vital Signs: Vital Signs Temperature 98 F 03/20/19 14:05 Pulse Rate 86 03/20/19 14:05 Respiratory Rate 18 03/20/19 14:05 Blood Pressure 150/65 03/20/19 14:05 O2 Sat by Pulse Oximetry (%) 100 03/20/19 04:13 Constitutional: Yes: Calm Eyes: Yes: Conjunctiva Clear HENT: Yes: Atraumatic Neck: Yes: Supple Cardiovascular: Yes: S1, S2 Respiratory: Yes: CTA Bilaterally Gastrointestinal: Yes: Soft, Abdomen, Obese Genitourinary: Yes: WNL Musculoskeletal: Yes: WNL Edema: Yes Edema: LLE: Trace, RLE: Trace Neurological: Yes: Oriented Psychiatric: Yes: Oriented Labs: CBC, BMP 03/17/19 06:30 03/17/19 06:30 Assessment/Plan Current Medications Generic Name Dose Route Start Last Admin Trade Name Freq PRN Reason Stop Dose Admin Acetaminophen 650 mg 03/13/19 16:10 03/19/19 21:44 Tylenol - PO 650 mg Q6H PRN Administration PAIN LEVEL 5-10/FEVER Atorvastatin Calcium 40 mg 03/13/19 22:00 03/19/19 21:45 Lipitor - PO 40 mg HS [facility] Administration Benzocaine/Menthol 1 each 03/14/19 18:34 Cepacol Lozenge - MM Q2H PRN SORE THROAT Ferrous Sulfate 325 mg 03/14/19 10:00 03/20/19 09:26 Feosol - PO 325 mg DAILY [facility] Administration Guaifenesin 5 ml 03/14/19 18:35 03/16/19 07:06 Diabetic Tussin Dm - PO 5 ml Q6H PRN Administration COUGH Heparin Sodium (Porcine) 5,000 unit 03/13/19 22:00 03/20/19 09:26 Heparin - SQ 5,000 unit BID [facility] Administration Insulin Aspart 1 vial 03/13/19 22:00 03/20/19 12:16 Novolog Vial Sliding Scale - SQ Not Given ACHS [facility] Protocol Levothyroxine Sodium 150 mcg 03/14/19 07:00 02/13/20 06:24 Synthroid - PO 150 mcg ACBK [facility] Administration Lidocaine 1 patch 03/14/19 10:00 03/20/19 09:26 Lidoderm Patch - TP 1 patch DAILY [facility] Administration Loratadine 10 mg 03/14/19 10:00 03/20/19 09:26 Claritin - PO 10 mg DAILY [facility] Administration Losartan Potassium 100 mg 03/16/19 10:00 03/20/19 09:26 Cozaar - PO 100 mg DAILY [facility] Administration Metoprolol Tartrate 100 mg 03/14/19 10:00 03/20/19 09:26 Lopressor - PO 100 mg DAILY [facility] Administration Miscellaneous 1 each 03/14/19 22:00 03/19/19 21:46 Lidoderm Patch Removal MC 1 each DAILY@2200 [facility] Administration Ondansetron HCl 4 mg 03/18/19 11:36 03/18/19 11:42 Zofran Odt - SL 4 mg Q6H PRN Administration NAUSEA Pantoprazole Sodium 40 mg 03/14/19 10:00 03/20/19 09:26 Protonix - PO 40 mg DAILY [facility] Administration Torsemide 40 mg 03/18/19 12:30 03/20/19 14:33 Demadex - PO 40 mg BIDLASIX [facility] Administration Impression 1. CKD 2. fluid overload 3. morbid obesity 4. hx of bariatric surgery 5. DM 6. HTN 7. hypothyroidism 8. ovarian cyst 9. PNA 10. CHF Plan - volume status is improving - will need outpt follow up - pending home bipap machine - check bmp - 2 gram sodium diet and fluid restriction - avoid nsaids - cont torsemide
--- NOTE | 2019-03-20 16:06 | PN ---
Progress Note, Physician Chief Complaint: Remains comfortable History of Present Illness: This is a 49 jorge old female with a PMH of HTN, DMII, morbid obesity, CKD. She was admitted to [facility] for an elective gastric sleeve 10/30/17 post op BANDAR and uncontrolled HTN, chronic diastolic CHF. She saw pulmonary Dr. Seo 11/13/18 who felt she did not have COPD but that she may have GERD contributing to her symptoms given her h/o bariatric surgery. She presents with worsening SOB. Noted with fluid overload on CXR. 03/20/2019 Symptomatically improved Ambualting without complaints. - Current Medication List Current Medications: Active Medications Acetaminophen (Tylenol -) 650 mg PO Q6H PRN PRN Reason: PAIN LEVEL 5-10/FEVER Last Admin: 03/19/19 21:44 Dose: 650 mg Atorvastatin Calcium (Lipitor -) 40 mg PO HS [facility] Last Admin: 03/19/19 21:45 Dose: 40 mg Benzocaine/Menthol (Cepacol Lozenge -) 1 each MM Q2H PRN PRN Reason: SORE THROAT Ferrous Sulfate (Feosol -) 325 mg PO DAILY [facility] Last Admin: 03/20/19 09:26 Dose: 325 mg Guaifenesin (Diabetic Tussin Dm -) 5 ml PO Q6H PRN PRN Reason: COUGH Last Admin: 03/16/19 07:06 Dose: 5 ml Heparin Sodium (Porcine) (Heparin -) 5,000 unit SQ BID [facility] Last Admin: 03/20/19 09:26 Dose: 5,000 unit Insulin Aspart (Novolog Vial Sliding Scale -) 1 vial SQ [facility]; Protocol Last Admin: 03/20/19 12:16 Dose: Not Given Levothyroxine Sodium (Synthroid -) 150 mcg PO ACBK [facility] Last Admin: 03/20/19 06:24 Dose: 150 mcg Lidocaine (Lidoderm Patch -) 1 patch TP DAILY [facility] Last Admin: 03/20/19 09:26 Dose: 1 patch Loratadine (Claritin -) 10 mg PO DAILY [facility] Last Admin: 03/20/19 09:26 Dose: 10 mg Losartan Potassium (Cozaar -) 100 mg PO DAILY [facility] Last Admin: 03/20/19 09:26 Dose: 100 mg Metoprolol Tartrate (Lopressor -) 100 mg PO DAILY [facility] Last Admin: 03/20/19 09:26 Dose: 100 mg Miscellaneous (Lidoderm Patch Removal) 1 each MC DAILY@2200 [facility] Last Admin: 03/19/19 21:46 Dose: 1 each Ondansetron HCl (Zofran Odt -) 4 mg SL Q6H PRN PRN Reason: NAUSEA Last Admin: 03/18/19 11:42 Dose: 4 mg Pantoprazole Sodium (Protonix -) 40 mg PO DAILY [facility] Last Admin: 03/20/19 09:26 Dose: 40 mg Torsemide (Demadex -) 40 mg PO BIDLASIX [facility] Last Admin: 03/20/19 14:33 Dose: 40 mg - Objective Vital Signs: Vital Signs Temperature 98 F 03/20/19 14:05 Pulse Rate 86 03/20/19 14:05 Respiratory Rate 18 03/20/19 14:05 Blood Pressure 150/65 03/20/19 14:05 O2 Sat by Pulse Oximetry (%) 100 03/20/19 10:00 Constitutional: Yes: No Distress, Obese Eyes: Yes: WNL HENT: Yes: WNL Neck: Yes: WNL Cardiovascular: Yes: Regular Rate and Rhythm, S1, S2 Respiratory: Yes: CTA Bilaterally Gastrointestinal: Yes: Soft Edema: LLE: Trace, RLE: Trace Neurological: Yes: Alert, Oriented Labs: CBC, BMP 03/17/19 06:30 03/17/19 06:30 Assessment/Plan 49year oldwoman with pmh HTN, DMII, morbid obesity, CKD adm [facility] for elective gastric sleeve 10/30/17 post op BANDAR and uncontrolled HTN, chronic diastolic CHF. She saw pulmonary Dr. Seo 11/13/18 who felt she did not have COPD but that she may have GERD contributing to her symptoms given her h/o bariatric surgery. She presents with worsening SOB. Noted with fluid overload on CXR. Echo 11/15/18 TDS. Grossly normal LV and RV. Mild LA dilatation. Mild MR and mild TR. Diastolic CHF Clinically improved Acute on chronic diastolic CHF Conitnue PO diuretics Continue torsemide 40 mg PO BID Current meds: Acetaminophen (Tylenol -) 650 mg PO Q6H PRN PRN Reason: PAIN LEVEL 5-10/FEVER Last Admin: 03/19/19 21:44 Dose: 650 mg Atorvastatin Calcium (Lipitor -) 40 mg PO HS [facility] Last Admin: 03/19/19 21:45 Dose: 40 mg Benzocaine/Menthol (Cepacol Lozenge -) 1 each MM Q2H PRN PRN Reason: SORE THROAT Ferrous Sulfate (Feosol -) 325 mg PO DAILY [facility] Last Admin: 03/20/19 09:26 Dose: 325 mg Guaifenesin (Diabetic Tussin Dm -) 5 ml PO Q6H PRN PRN Reason: COUGH Last Admin: 03/16/19 07:06 Dose: 5 ml Heparin Sodium (Porcine) (Heparin -) 5,000 unit SQ BID [facility] Last Admin: 03/20/19 09:26 Dose: 5,000 unit Insulin Aspart (Novolog Vial Sliding Scale -) [address] [facility]; Protocol Last Admin: 03/20/19 12:16 Dose: Not Given Levothyroxine Sodium (Synthroid -) 150 mcg PO ACBK [facility] Last Admin: 03/20/19 06:24 Dose: 150 mcg Lidocaine (Lidoderm Patch -) 1 patch TP DAILY [facility] Last Admin: 03/20/19 09:26 Dose: 1 patch Loratadine (Claritin -) 10 mg PO DAILY [facility] Last Admin: 03/20/19 09:26 Dose: 10 mg Losartan Potassium (Cozaar -) 100 mg PO DAILY [facility] Last Admin: 03/20/19 09:26 Dose: 100 mg Metoprolol Tartrate (Lopressor -) 100 mg PO DAILY [facility] Last Admin: 03/20/19 09:26 Dose: 100 mg Miscellaneous (Lidoderm Patch Removal) 1 each MC DAILY@2200 [facility] Last Admin: 03/19/19 21:46 Dose: 1 each Ondansetron HCl (Zofran Odt -) 4 mg SL Q6H PRN PRN Reason: NAUSEA Last Admin: 03/18/19 11:42 Dose: 4 mg Pantoprazole Sodium (Protonix -) 40 mg PO DAILY [facility] Last Admin: 03/20/19 09:26 Dose: 40 mg Torsemide (Demadex -) 40 mg PO BIDLASIX [facility] Last Admin: 03/20/19 14:33 Dose: 40 mg
== END 2019-03-20 18:01 | disposition home health service (06) | DRG 133 ==
LOC: JER 08:02 → JERBED 10:22 → J4S 14:55
PROVIDERS: ADMIT Family Medicine; ATTEND Family Medicine
PROC: 5A09357 Assistance with Respiratory Ventilation, Less than 24 Consecutive Hours, Continuous Positive Airway Pressure (ICD-10-PCS; principal; 2019-03-13)
DX: J96.01 Acute respiratory failure with hypoxia (principal); I50.33 Acute on chronic diastolic (congestive) heart failure; N17.9 Acute kidney failure, unspecified; I13.0 Hypertensive heart and chronic kidney disease with heart failure and stage 1 through stage 4 chronic kidney disease, or unspecified chronic kidney disease; E11.22 Type 2 diabetes mellitus with diabetic chronic kidney disease; Z99.81 Dependence on supplemental oxygen; E66.01 Morbid (severe) obesity due to excess calories; Z68.43 Body mass index [BMI] 50.0-59.9, adult; E87.5 Hyperkalemia; N18.9 Chronic kidney disease, unspecified; J44.9 Chronic obstructive pulmonary disease, unspecified; E78.5 Hyperlipidemia, unspecified; E03.9 Hypothyroidism, unspecified; Z79.4 Long term (current) use of insulin; G47.33 Obstructive sleep apnea (adult) (pediatric); N83.209 Unspecified ovarian cyst, unspecified side; D64.9 Anemia, unspecified; Z91.11 Patient's noncompliance with dietary regimen
CPT/HCPCS: 36415; 36600; 71045-TC-FY; 80053; 82272; 82375; 82550; 82553; 82607; 82728; 82803; 82962; 83036; 83050; 83540; 83550; 83605; 83735; 83880; 84443; 84484; 85025; 87040; 87186; 87804; 93005; 93010; 94640; 94660; 97116-GP; 97161-GP; 99285-25; J1644; Q0162

== ENCOUNTER 2019-12-24 05:44 | Day surgery (SDC) | payer OTHER ==
[2019-12-23 16:31] VITALS: BMI 54.6
[~2019-12-24 05:44] MED LIST: ACETAMINOPHEN 325 MG TABLET (FP) PO PRN; BSS (NA/CA/MG/K) BALANCED SALT SOLUTION OPHTH SOLN 15 ML BOTTLE OS ONE; CHONDROITIN SU A/HYALUR SOD 1 KIT IO ONE; CYCLOPENTOLATE HCL 1% OPHTH SOLN 2 ML BOTTLE OP SCH; EPINEPHrine/PF 1 MG/1 ML (1:1,000) AMPULE SQ ONE; KETOROLAC TROMETHAMINE 0.5% EYE DROP 1 DROP DROPS OP SCH; LIDOCAINE HCL 1% PRESERVATIVE FREE - 30ML VIAL IO ONE; OFLOXACIN 0.3% OPHTHALMIC SOLUTION 5 ML BOTTLE OP SCH; PHENYLEPHRINE 2.5% OPHTH SOLN 15 ML BOTTLE OP SCH; POVIDONE-IODINE 5% OPHTHALMIC PREP 30 ML SOLUTION OS ONE; TETRACAINE 0.5% OPHTH SOLN 2 ML BOTTLE OS ONE; TROPICAMIDE 1% OPHTH SOLN 15 ML BOTTLE OP SCH
[2019-12-24] MEDS ORDERED: CHONDROITIN SU A/HYALUR SOD 1 KIT ONE ×2 (07:16→07:23)
[2019-12-24] MEDS ORDERED: EPINEPHrine/PF 1 MG/1 ML (1:1,000) AMPULE ONE (07:21)
[2019-12-24] MEDS ORDERED: LIDOCAINE HCL/PF 1% SDV 5ML VIAL ONE (07:21)
[2019-12-24] MEDS ORDERED: TETRACAINE 0.5% OPHTH SOLN 2 ML BOTTLE ONE (07:21)
[2019-12-24] MEDS ORDERED: POVIDONE-IODINE 5% OPHTHALMIC PREP 30 ML SOLUTION ONE (07:21)
[2019-12-24] MEDS ORDERED: OFLOXACIN 0.3% OPHTHALMIC SOLUTION 5 ML BOTTLE ONE (08:17)
[2019-12-24] MEDS ORDERED: TROPICAMIDE 1% OPHTH SOLN 15 ML BOTTLE ONE (08:17)
[2019-12-24] MEDS ORDERED: KETOROLAC TROMETHAMINE 0.5% EYE DROP 1 DROP DROPS ONE (08:17)
[2019-12-24] MEDS ORDERED: CYCLOPENTOLATE HCL 1% OPHTH SOLN 2 ML BOTTLE ONE (08:17)
[2019-12-24] MEDS ORDERED: OFLOXACIN 0.3% OPHTHALMIC SOLUTION 5 ML BOTTLE OS ONE ×3 (08:30→08:40)
[2019-12-24] MEDS ORDERED: KETOROLAC TROMETHAMINE 0.5% EYE DROP 1 DROP DROPS OS ONE ×3 (08:30→08:40)
[2019-12-24] MEDS ORDERED: CYCLOPENTOLATE HCL 1% OPHTH SOLN 2 ML BOTTLE OS ONE ×3 (08:30→08:40)
[2019-12-24] MEDS ORDERED: TROPICAMIDE 1% OPHTH SOLN 15 ML BOTTLE OS ONE ×3 (08:30→08:40)
[2019-12-24] MEDS ORDERED: PHENYLEPHRINE 2.5% OPHTH SOLN 15 ML BOTTLE OS ONE ×3 (08:30→08:40)
[2019-12-24] MEDS ORDERED: MIDAZOLAM HCL 2 MG/2 ML SINGLE DOSE VIAL ONE (09:49)
[2019-12-24] MEDS ORDERED: TETRACAINE 0.5% OPHTH SOLN 2 ML BOTTLE OS ONE (09:58)
[2019-12-24] MEDS ORDERED: POVIDONE-IODINE 5% OPHTHALMIC PREP 30 ML SOLUTION OS ONE (10:01)
[2019-12-24] MEDS ORDERED: BSS (NA/CA/MG/K) BALANCED SALT SOLUTION OPHTH SOLN 15 ML BOTTLE OS ONE (10:06)
[2019-12-24] MEDS ORDERED: LIDOCAINE HCL 1% PRESERVATIVE FREE - 30ML VIAL IO ONE (10:06)
[2019-12-24] MEDS ORDERED: CHONDROITIN SU A/HYALUR SOD 1 KIT IO ONE (10:06)
[2019-12-24] MEDS ORDERED: EPINEPHrine/PF 1 MG/1 ML (1:1,000) AMPULE SQ ONE (10:12)
[2019-12-24 12:39] VITALS: BP 156/94; PULSE 81; TEMP 97.5
== END 2019-12-24 12:00 | disposition home or self-care (01) ==
LOC: JASU-SURG 05:44
PROVIDERS: ATTEND Ophthalmology
PROC: 08RK3JZ Replacement of Left Lens with Synthetic Substitute, Percutaneous Approach (ICD-10-PCS; principal; 2019-12-24 10:00)
DX: H26.9 Unspecified cataract (principal); I10 Essential (primary) hypertension; E11.9 Type 2 diabetes mellitus without complications; J44.9 Chronic obstructive pulmonary disease, unspecified
CPT/HCPCS: 82962

== ENCOUNTER 2020-01-07 06:12 | Day surgery (SDC) | payer OTHER ==
[2020-01-05 19:49] VITALS: BMI 54.6
[~2020-01-07 06:12] MED LIST changes: +BSS (NA/CA/MG/K) BALANCED SALT SOLUTION OPHTH SOLN 15 ML BOTTLE OD ONE; -BSS (NA/CA/MG/K) BALANCED SALT SOLUTION OPHTH SOLN 15 ML BOTTLE OS ONE; -CYCLOPENTOLATE HCL 1% OPHTH SOLN 2 ML BOTTLE OP SCH; -KETOROLAC TROMETHAMINE 0.5% EYE DROP 1 DROP DROPS OP SCH; -OFLOXACIN 0.3% OPHTHALMIC SOLUTION 5 ML BOTTLE OP SCH; -PHENYLEPHRINE 2.5% OPHTH SOLN 15 ML BOTTLE OP SCH; +POVIDONE-IODINE 5% OPHTHALMIC PREP 30 ML SOLUTION OD ONE; -POVIDONE-IODINE 5% OPHTHALMIC PREP 30 ML SOLUTION OS ONE; +TETRACAINE 0.5% OPHTH SOLN 2 ML BOTTLE OD ONE; -TETRACAINE 0.5% OPHTH SOLN 2 ML BOTTLE OS ONE; -TROPICAMIDE 1% OPHTH SOLN 15 ML BOTTLE OP SCH
[2020-01-07] MEDS ORDERED: TROPICAMIDE 1% OPHTH SOLN 15 ML BOTTLE ONE (06:58)
[2020-01-07] MEDS ORDERED: KETOROLAC TROMETHAMINE 0.5% EYE DROP 1 DROP DROPS ONE (06:58)
[2020-01-07] MEDS ORDERED: OFLOXACIN 0.3% OPHTHALMIC SOLUTION 5 ML BOTTLE ONE (06:59)
[2020-01-07] MEDS ORDERED: CYCLOPENTOLATE HCL 1% OPHTH SOLN 2 ML BOTTLE ONE (06:59)
[2020-01-07] MEDS: TROPICAMIDE 1% OPHTH SOLN 15 ML BOTTLE OP SCH ×3 (07:10→07:25)
[2020-01-07] MEDS: KETOROLAC TROMETHAMINE 0.5% EYE DROP 1 DROP DROPS OP SCH ×3 (07:10→07:25)
[2020-01-07] MEDS: OFLOXACIN 0.3% OPHTHALMIC SOLUTION 5 ML BOTTLE OP SCH ×3 (07:10→07:25)
[2020-01-07] MEDS: CYCLOPENTOLATE HCL 1% OPHTH SOLN 2 ML BOTTLE OP SCH ×3 (07:10→07:25)
[2020-01-07] MEDS ORDERED: CHONDROITIN SU A/HYALUR SOD 1 KIT ONE (07:16)
[2020-01-07] MEDS ORDERED: EPINEPHrine/PF 1 MG/1 ML (1:1,000) AMPULE ONE (07:18)
[2020-01-07] MEDS ORDERED: TETRACAINE 0.5% OPHTH SOLN 2 ML BOTTLE ONE (07:19)
[2020-01-07] MEDS ORDERED: LIDOCAINE HCL/PF 1% SDV 5ML VIAL ONE (07:19)
[2020-01-07] MEDS ORDERED: VANCOMYCIN 500 MG VIAL (RESTRICTED TO ID ONLY) ONE (07:19)
[2020-01-07] MEDS ORDERED: POVIDONE-IODINE 5% OPHTHALMIC PREP 30 ML SOLUTION ONE (07:20)
[2020-01-07] MEDS ORDERED: WATER FOR INJ,STERILE 10 ML ONE (07:20)
[2020-01-07] MEDS ORDERED: BSS (NA/CA/MG/K) BALANCED SALT SOLUTION OPHTH SOLN 15 ML BOTTLE ONE (07:20)
[2020-01-07] MEDS ORDERED: ACETYLCHOLINE 1:100 INTRA-OCUL 20 MG/2 ML KIT ONE (07:20)
[2020-01-07] MEDS: PHENYLEPHRINE 2.5% OPHTH SOLN 15 ML BOTTLE OP SCH ×3 (07:20→07:30)
[2020-01-07] MEDS ORDERED: TRYPAN BLUE 0.5 ML DISP.SYRIN ONE (07:21)
[2020-01-07] MEDS ORDERED: MIDAZOLAM HCL 2 MG/2 ML SINGLE DOSE VIAL ONE (08:15)
[2020-01-07] MEDS ORDERED: TETRACAINE 0.5% OPHTH SOLN 2 ML BOTTLE OD ONE (08:19)
[2020-01-07] MEDS ORDERED: POVIDONE-IODINE 5% OPHTHALMIC PREP 30 ML SOLUTION OD ONE (08:20)
[2020-01-07] MEDS ORDERED: CHONDROITIN SU A/HYALUR SOD 1 KIT IO ONE (08:28)
[2020-01-07] MEDS ORDERED: LIDOCAINE HCL 1% PRESERVATIVE FREE - 30ML VIAL IO ONE (08:28)
[2020-01-07] MEDS ORDERED: BSS (NA/CA/MG/K) BALANCED SALT SOLUTION OPHTH SOLN 15 ML BOTTLE OD ONE (08:28)
[2020-01-07] MEDS ORDERED: EPINEPHrine/PF 1 MG/1 ML (1:1,000) AMPULE SQ ONE (08:34)
[2020-01-07] MEDS ORDERED: ACETAMINOPHEN 325 MG TABLET (FP) PO ONE (09:10)
[2020-01-07] MEDS ORDERED: ACETAMINOPHEN 325 MG TABLET (FP) ONE (09:11)
[2020-01-07 10:08] VITALS: BP 164/79; PULSE 79; TEMP 98
== END 2020-01-07 10:00 | disposition home or self-care (01) ==
LOC: JASU-SURG 06:12
PROVIDERS: ATTEND Ophthalmology
PROC: 08RJ3JZ Replacement of Right Lens with Synthetic Substitute, Percutaneous Approach (ICD-10-PCS; principal; 2020-01-07 08:00)
DX: H26.9 Unspecified cataract (principal)
CPT/HCPCS: 82962

== ENCOUNTER 2020-09-25 11:04 | Day surgery (SDC) | payer OTHER ==
[2020-09-25] MEDS ORDERED: FERRIC CARBOXYMALTOSE 750 MG in SODIUM CHLORIDE 250 ML IVPB ONE (11:45)
[2020-09-25 12:08] VITALS: TEMP 98
[2020-09-25 13:07] VITALS: BP 150/85; PULSE 88
== END 2020-09-25 13:07 | disposition home or self-care (01) ==
LOC: FINFUSION 11:04 → FM/S 11:06 → FINFUSION 13:07
PROVIDERS: ATTEND Nurse Practitioner Adult Health
PROC: 3E033GC Introduction of Other Therapeutic Substance into Peripheral Vein, Percutaneous Approach (ICD-10-PCS; principal; 2020-09-25)
DX: D50.9 Iron deficiency anemia, unspecified (principal)
CPT/HCPCS: 81025; 96365; J1439

== ENCOUNTER 2020-10-07 11:43 | Day surgery (SDC) | payer OTHER ==
[2020-10-07] MEDS ORDERED: FERRIC CARBOXYMALTOSE 750 MG in SODIUM CHLORIDE 250 ML IVPB ONE (12:30)
[2020-10-07 13:00] VITALS: TEMP 98.1
[2020-10-07 13:52] VITALS: BP 135/75; PULSE 82
== END 2020-10-07 14:00 | disposition home or self-care (01) ==
LOC: FM/S 11:43 → FINFUSION 11:43
PROVIDERS: ATTEND Nurse Practitioner Adult Health
PROC: 3E033GC Introduction of Other Therapeutic Substance into Peripheral Vein, Percutaneous Approach (ICD-10-PCS; principal; 2020-10-07)
DX: D50.9 Iron deficiency anemia, unspecified (principal)
CPT/HCPCS: 81025; 96365; J1439

== ENCOUNTER 2021-07-26 10:26 | Inpatient (IN) | payer OTHER ==
[2021-07-26 12:33] LABS: BASO % 0.9 % (0-2.0); EOS % 3.9 % (0-4.5); HEMATOCRIT 27.5 % (32.4-45.2); HEMOGLOBIN 9.2 GM/dL (10.7-15.3); LYMPH % 33.9 % (8-40); MCH 31.1 pg (25.7-33.7); MCHC 33.5 g/dl (32.0-36.0); MEAN CELL VOLUME 92.8 fl (80-96); MEAN PLT VOLUME 9.9 fl (7.5-11.1); NEUT % 53.3 % (42.8-82.8); PLATELET COUNT 215 10^3/uL (134-434); RBC 2.97 M/mm3 (3.60-5.2); RDW 13.1 % (11.6-15.6)
[2021-07-26 12:44] LABS: PH,URINE 5.5 (5.0-8.0); URINE APPEARANCE CLEAR; URINE BILIRUBIN NEGATIVE (NEGATIVE); URINE COLOR YELLOW; URINE GLUCOSE (UA) NEGATIVE (NEGATIVE); URINE KETONE NEGATIVE (NEGATIVE); URINE LEUK ESTERASE NEGATIVE (NEGATIVE); URINE NITRITE NEGATIVE (NEGATIVE); URINE PROTEIN 1+ (NEGATIVE); URINE UROBILINOGEN 0.2 mg/dL (0.2-1.0)
[2021-07-26 13:02] LABS: CHLORIDE 110 mmol/L (98-107); SODIUM 140 mmol/L (136-145)
[2021-07-26 13:04] LABS: ALBUMIN 3.6 g/dl (3.4-5.0); BLOOD UREA NITROGEN 80.9 mg/dL (7-18); CALCIUM 8.2 mg/dL (8.5-10.1); CO2 21 mmol/L (21-32)
[2021-07-26 13:05] LABS: ACTIVATED PTT 31.3 SECONDS (25.2-36.5); GLUCOSE,RANDOM 247 mg/dL (74-106); INR 1.09 (0.83-1.09); PROTHROMBIN TIME (PATIENT) 12.6 SEC (9.7-13.0)
[2021-07-26 13:07] LABS: SGPT/ALT 45 U/L (13-61)
[2021-07-26 13:08] LABS: CREATININE 3.9 mg/dL (0.55-1.3); SGOT/AST 20 U/L (15-37)
[2021-07-26 13:09] LABS: BILIRUBIN,TOTAL 0.2 mg/dL (0.2-1)
[2021-07-26 13:10] LABS: ALK PHOS 138 U/L (45-117)
[2021-07-26 13:13] LABS: ANION GAP 9 MMOL/L (8-16)
[2021-07-26] MEDS ORDERED: CALCIUM GLUCONATE 10% - 1,000 MG/10 ML VIAL IVPUSH ONE (13:20)
[2021-07-26] MEDS ORDERED: FUROSEMIDE 40 MG/4 ML INJECTABLE VIAL IVPUSH ONE (13:20)
[2021-07-26] MEDS ORDERED: ALBUTEROL SO4 0.042% IH SOL 1.25 MG/3 ML VIAL.NEB NEB ONE (13:25)
[2021-07-26] MEDS ORDERED: INSULIN REGULAR HUMAN 100 UNITS/ML *VIAL IVPUSH ONE (13:25)
[2021-07-26] MEDS ORDERED: SODIUM ZIRCONIUM CYCLOSILICATE (LOKELMA) 5 GM PACKET PO ONE (13:25)
[2021-07-26] MEDS ORDERED: SODIUM BICARBONATE 4.2% 5 MEQ/10 ML DISP.SYRIN IVPUSH ONE ×2 (13:26→13:32)
[2021-07-26] MEDS ORDERED: SODIUM ZIRCONIUM CYCLOSILICATE (LOKELMA) 5 GM PACKET ONE (13:31)
[2021-07-26] MEDS ORDERED: CALCIUM GLUCONATE 10% - 1,000 MG/10 ML VIAL ONE (13:32)
[2021-07-26] MEDS ORDERED: FUROSEMIDE 40 MG/4 ML INJECTABLE VIAL ONE (13:32)
[2021-07-26 13:41] LABS: EPI CELLS 5 /uL (0-25.1); HYALINE CASTS 0 /uL (0-3.1); URINE BACTERIA 26 /uL (0-1359); URINE RBC 3 /uL (0-23.9); URINE WBC 1 /uL (0-25.8)
[2021-07-26] MEDS ORDERED: DEXTROSE 50%-WATER - 25 GM/50 ML VIAL IVPUSH ONE (13:52)
[2021-07-26] MEDS ORDERED: DEXTROSE 10%-WATER 500 ML INFUS.BAG IV ONE (13:59)
[2021-07-26] MEDS ORDERED: ALBUTEROL SO4 0.083% IH SOL 2.5 MG/3 ML VIAL.NEB. NEB ONE ×2 (14:15→14:30)
[2021-07-26 14:29] LABS: N-TERMINAL BNP 549.6 pg/ml (5-125)
[2021-07-26] MEDS ORDERED: HEPARIN NA (PORCINE) 5,000 UNITS/ML 1ML VIAL ONE (21:42)
[2021-07-26] MEDS: HEPARIN NA (PORCINE) 5,000 UNITS/ML 1ML VIAL SQ SCH (21:51)
[2021-07-26] MEDS: INSULIN SLIDING SCALE (NOVOLOG) 1 VIAL SQ SCH (21:51)
[2021-07-26] MEDS ORDERED: ACETAMINOPHEN 325 MG TABLET (FP) PO ONE (22:34)
[2021-07-26] MEDS ORDERED: ACETAMINOPHEN 325 MG TABLET (FP) ONE (22:44)
[2021-07-27 02:10] VITALS: BMI 57.6
[2021-07-27] MEDS: HEPARIN NA (PORCINE) 5,000 UNITS/ML 1ML VIAL SQ SCH ×2 (07:43→14:11)
[2021-07-27] MEDS: INSULIN SLIDING SCALE (NOVOLOG) 1 VIAL SQ SCH ×4 (07:44→21:26)
[2021-07-27] MEDS: LEVOTHYROXINE NA 150 MCG TABLET PO SCH (07:46)
[2021-07-27] MEDS ORDERED: FUROSEMIDE 100 MG/10 ML INJECTABLE VIAL IVPB SCH (10:00)
[2021-07-27] MEDS ORDERED: amLODIPine BESYLATE 5 MG TABLET (FP) PO SCH (10:00)
[2021-07-27] MEDS ORDERED: WATER IVPB SCH (10:00)
[2021-07-27] MEDS ORDERED: FUROSEMIDE IVPB SCH (10:00)
[2021-07-27] MEDS ORDERED: DEXTROSE 5% IVPB SCH (10:00)
[2021-07-27] MEDS ORDERED: FUROSEMIDE 40 MG/4 ML INJECTABLE VIAL IVPUSH ONE (10:22)
[2021-07-27] MEDS: EZETIMIBE 10 MG TABLET (FP) PO SCH (10:35)
[2021-07-27 11:23] LABS: BASO % 0.6 % (0-2.0); EOS % 4.1 % (0-4.5); HEMATOCRIT 27.4 % (32.4-45.2); HEMOGLOBIN 9.2 GM/dL (10.7-15.3); LYMPH % 31.9 % (8-40); MCH 30.9 pg (25.7-33.7); MCHC 33.5 g/dl (32.0-36.0); MEAN CELL VOLUME 92.3 fl (80-96); MEAN PLT VOLUME 9.4 fl (7.5-11.1); MONO % 9.6 % (3.8-10.2); NEUT % 53.8 % (42.8-82.8); PLATELET COUNT 211 10^3/uL (134-434); RBC 2.97 M/mm3 (3.60-5.2); WHITE BLOOD COUNT 7.4 K/mm3 (4.0-10.0)
[2021-07-27 12:05] LABS: ALBUMIN 3.7 g/dl (3.4-5.0); BLOOD UREA NITROGEN 74.5 mg/dL (7-18); CALCIUM 8.9 mg/dL (8.5-10.1); MAGNESIUM 2.2 mg/dL (1.8-2.4)
[2021-07-27 12:09] LABS: CREATININE 3.5 mg/dL (0.55-1.3); PHOSPHOROUS 4.7 mg/dL (2.5-4.9)
[2021-07-27 12:10] LABS: BILIRUBIN,TOTAL 0.3 mg/dL (0.2-1); TOT PROT 8.3 g/dl (6.4-8.2)
[2021-07-27] MEDS: FUROSEMIDE 40 MG/4 ML INJECTABLE VIAL IVPUSH SCH (16:36)
[2021-07-27] MEDS ORDERED: ALBUTEROL SO4 0.083% IH SOL 2.5 MG/3 ML VIAL.NEB. NEB PRN (18:11)
[2021-07-27] MEDS ORDERED: SODIUM ZIRCONIUM CYCLOSILICATE (LOKELMA) 5 GM PACKET PO ONE (18:13)
[2021-07-27] MEDS: APIXABAN 5 MG TABLET PO SCH (21:25)
[2021-07-27] MEDS: MONTELUKAST NA 10 MG TABLET PO SCH (21:25)
[2021-07-27] MEDS: ROSUVASTATIN CA 10 MG TABLET PO SCH (21:26)
[2021-07-28] MEDS: FUROSEMIDE 40 MG/4 ML INJECTABLE VIAL IVPUSH SCH ×2 (06:19→13:16)
[2021-07-28] MEDS: INSULIN SLIDING SCALE (NOVOLOG) 1 VIAL SQ SCH ×3 (06:19→17:37)
[2021-07-28] MEDS: LEVOTHYROXINE NA 150 MCG TABLET PO SCH (06:19)
[2021-07-28 07:19] LABS: BASO % 0.9 % (0-2.0); EOS % 4.2 % (0-4.5); HEMATOCRIT 28.3 % (32.4-45.2); HEMOGLOBIN 9.3 GM/dL (10.7-15.3); LYMPH % 41.8 % (8-40); MCH 30.6 pg (25.7-33.7); MCHC 32.7 g/dl (32.0-36.0); MEAN CELL VOLUME 93.4 fl (80-96); MEAN PLT VOLUME 9.8 fl (7.5-11.1); MONO % 8.7 % (3.8-10.2); NEUT % 44.4 % (42.8-82.8); PLATELET COUNT 210 10^3/uL (134-434); RBC 3.03 M/mm3 (3.60-5.2); RDW 13.4 % (11.6-15.6)
[2021-07-28 07:30] LABS: CALCIUM 8.7 mg/dL (8.5-10.1)
[2021-07-28 07:31] LABS: BLOOD UREA NITROGEN 74.6 mg/dL (7-18)
[2021-07-28 07:35] LABS: CREATININE 3.7 mg/dL (0.55-1.3)
[2021-07-28] MEDS: FERROUS GLUCONATE 324 MG TAB (FP) PO SCH (09:10)
[2021-07-28] MEDS: APIXABAN 5 MG TABLET PO SCH ×2 (09:10→21:14)
[2021-07-28] MEDS: SODIUM BICARBONATE 650 MG TABLET PO SCH (09:10)
[2021-07-28] MEDS: amLODIPine BESYLATE 10 MG TABLET (FP) PO SCH (09:10)
[2021-07-28] MEDS: EZETIMIBE 10 MG TABLET (FP) PO SCH (09:10)
[2021-07-28] MEDS ORDERED: SODIUM ZIRCONIUM CYCLOSILICATE (LOKELMA) 5 GM PACKET PO ONE (10:00)
[2021-07-28] MEDS ORDERED: SODIUM ZIRCONIUM CYCLOSILICATE (LOKELMA) 5 GM PACKET PO SCH (10:00)
[2021-07-28] MEDS ORDERED: DEXTROSE 50%-WATER 25 GM/50 ML DISP.SYRIN ONE (17:16)
[2021-07-28] MEDS ORDERED: DEXTROSE 50%-WATER 25 GM/50 ML DISP.SYRIN IVPUSH ONE (18:43)
[2021-07-28] MEDS ORDERED: DEXTROSE 50%-WATER 25 GM/50 ML DISP.SYRIN IVPUSH PRN (18:45)
[2021-07-28] MEDS: ROSUVASTATIN CA 10 MG TABLET PO SCH (21:14)
[2021-07-28] MEDS: MONTELUKAST NA 10 MG TABLET PO SCH (21:14)
[2021-07-29] MEDS: FUROSEMIDE 40 MG/4 ML INJECTABLE VIAL IVPUSH SCH ×2 (06:25→13:40)
[2021-07-29] MEDS: INSULIN SLIDING SCALE (NOVOLOG) 1 VIAL SQ SCH ×2 (06:25→12:49)
[2021-07-29] MEDS: LEVOTHYROXINE NA 150 MCG TABLET PO SCH (06:25)
[2021-07-29] MEDS: APIXABAN 5 MG TABLET PO SCH (11:15)
[2021-07-29] MEDS: EZETIMIBE 10 MG TABLET (FP) PO SCH (11:16)
[2021-07-29] MEDS: SODIUM BICARBONATE 650 MG TABLET PO SCH (11:16)
[2021-07-29] MEDS: amLODIPine BESYLATE 10 MG TABLET (FP) PO SCH (11:16)
[2021-07-29] MEDS: FERROUS GLUCONATE 324 MG TAB (FP) PO SCH (11:16)
[2021-07-29 11:17] LABS: BASO % 0.8 % (0-2.0); EOS % 4.1 % (0-4.5); HEMATOCRIT 28.5 % (32.4-45.2); HEMOGLOBIN 9.5 GM/dL (10.7-15.3); LYMPH % 42.2 % (8-40); MCH 30.9 pg (25.7-33.7); MCHC 33.3 g/dl (32.0-36.0); MEAN CELL VOLUME 92.6 fl (80-96); MEAN PLT VOLUME 9.5 fl (7.5-11.1); NEUT % 40.9 % (42.8-82.8); PLATELET COUNT 215 10^3/uL (134-434); RBC 3.08 M/mm3 (3.60-5.2); RDW 12.8 % (11.6-15.6); WHITE BLOOD COUNT 6.1 K/mm3 (4.0-10.0)
[2021-07-29 11:36] LABS: CALCIUM 8.8 mg/dL (8.5-10.1)
[2021-07-29 11:38] LABS: BLOOD UREA NITROGEN 61.6 mg/dL (7-18)
[2021-07-29 11:40] LABS: CREATININE 3.5 mg/dL (0.55-1.3)
[2021-07-29 14:39] VITALS: BP 155/76; PULSE 84; TEMP 98.2
== END 2021-07-29 18:15 | disposition home or self-care (01) | DRG 194 ==
LOC: JER 10:26 → JERBED 14:42 → J4W 23:50
PROVIDERS: ADMIT Internal Medicine; ATTEND Internal Medicine
DX: I13.2 Hypertensive heart and chronic kidney disease with heart failure and with stage 5 chronic kidney disease, or end stage renal disease (principal); I50.33 Acute on chronic diastolic (congestive) heart failure; J96.11 Chronic respiratory failure with hypoxia; N17.9 Acute kidney failure, unspecified; N18.5 Chronic kidney disease, stage 5; E11.22 Type 2 diabetes mellitus with diabetic chronic kidney disease; I31.3 Pericardial effusion (noninflammatory); Z99.81 Dependence on supplemental oxygen; Z68.43 Body mass index [BMI] 50.0-59.9, adult; E87.5 Hyperkalemia; I48.92 Unspecified atrial flutter; E66.01 Morbid (severe) obesity due to excess calories; E78.5 Hyperlipidemia, unspecified; E03.9 Hypothyroidism, unspecified; G47.30 Sleep apnea, unspecified; I48.0 Paroxysmal atrial fibrillation; I24.8 Other forms of acute ischemic heart disease; N83.299 Other ovarian cyst, unspecified side; E87.70 Fluid overload, unspecified; I25.10 Atherosclerotic heart disease of native coronary artery without angina pectoris; M54.50 Low back pain, unspecified; Z98.84 Bariatric surgery status
CPT/HCPCS: 0241U-QW; 36415; 71045-TC-FY; 80048; 80053; 81003; 82570; 82962; 83735; 83880; 84100; 84132; 84300; 84484; 84540; 85025; 85610; 85730; 87086; 93005; 93010; 93306-TC; 93970-TC; 94660; 99285-25; J1644

== ENCOUNTER 2021-09-12 08:29 | Inpatient (IN) | payer OTHER ==
[2021-09-12 10:13] LABS: EOS % 4.6 % (0-4.5); HEMATOCRIT 29.3 % (32.4-45.2); HEMOGLOBIN 9.8 GM/dL (10.7-15.3); LYMPH % 30.2 % (8-40); MCH 30.3 pg (25.7-33.7); MCHC 33.5 g/dl (32.0-36.0); MEAN CELL VOLUME 90.5 fl (80-96); MEAN PLT VOLUME 9.3 fl (7.5-11.1); MONO % 8.4 % (3.8-10.2); NEUT % 55.8 % (42.8-82.8); PLATELET COUNT 208 10^3/uL (134-434); RBC 3.23 M/mm3 (3.60-5.2); RDW 12.6 % (11.6-15.6); WHITE BLOOD COUNT 8.1 K/mm3 (4.0-10.0)
[2021-09-12 10:28] LABS: INR 1.16 (0.83-1.09); PROTHROMBIN TIME (PATIENT) 13.4 SEC (9.7-13.0)
[2021-09-12 10:37] LABS: CHLORIDE 108 mmol/L (98-107); SODIUM 140 mmol/L (136-145)
[2021-09-12 10:39] LABS: ALBUMIN 3.5 g/dl (3.4-5.0); ANION GAP 10 MMOL/L (8-16); CALCIUM 8.6 mg/dL (8.5-10.1); CO2 23 mmol/L (21-32); GLUCOSE,RANDOM 204 mg/dL (74-106); MAGNESIUM 2.1 mg/dL (1.8-2.4)
[2021-09-12] MEDS ORDERED: PIPERACILLIN/TAZOB 4.5 GM 4.5 GM in DEXTROSE 5%-WATER 100 ML IVPB ONE (10:39)
[2021-09-12] MEDS ORDERED: VANCOMYCIN 1 GM in D5W (PRE-DOCKED) 1,000 MG/250 ML IVPB ONE (10:39)
[2021-09-12 10:42] LABS: CREATININE 3.9 mg/dL (0.55-1.3); SGOT/AST 21 U/L (15-37); SGPT/ALT 18 U/L (13-61)
[2021-09-12 10:43] LABS: TOT PROT 8.4 g/dl (6.4-8.2)
[2021-09-12] MEDS ORDERED: FUROSEMIDE 40 MG/4 ML INJECTABLE VIAL IVPUSH ONE ×2 (10:43→18:00)
[2021-09-12 10:45] LABS: ALK PHOS 117 U/L (45-117)
[2021-09-12 10:47] LABS: N-TERMINAL BNP 786.8 pg/ml (5-125)
[2021-09-12 10:54] LABS: BILIRUBIN,TOTAL 0.2 mg/dL (0.2-1)
[2021-09-12] MEDS ORDERED: VANCOMYCIN/WATER FOR INJ (PEG) 1,000 MG/200 ML BAG IVPB ONE (11:13)
[2021-09-12] MEDS ORDERED: FUROSEMIDE 40 MG/4 ML INJECTABLE VIAL ONE ×2 (11:13→18:02)
[2021-09-12] MEDS ORDERED: PIPERACILLIN/TAZOB 4.5 GM 4.5 GM/100 ML BAG IVPB ONE (11:13)
[2021-09-12] MEDS ORDERED: ALBUTEROL SO4 HFA INHALER IH PRN (11:31)
[2021-09-12] MEDS ORDERED: DOXEPIN HCL 10 MG CAPSULE PO PRN (12:06)
[2021-09-12] MEDS: GABAPENTIN 300 MG CAPSULE PO SCH (13:59)
[2021-09-12] MEDS ORDERED: FUROSEMIDE 40 MG/4 ML INJECTABLE VIAL IVPUSH SCH (14:00)
[2021-09-12] MEDS: INSULIN SLIDING SCALE (NOVOLOG) 1 VIAL SQ SCH (16:32)
[2021-09-12] MEDS ORDERED: ONDANSETRON 4 MG/2 ML VIAL ONE (22:41)
[2021-09-12] MEDS ORDERED: ATORVASTATIN CA 20 MG TABLET (FP) ONE (23:14)
[2021-09-12] MEDS ORDERED: APIXABAN 5 MG TABLET ONE (23:14)
[2021-09-12] MEDS ORDERED: GABAPENTIN 300 MG CAPSULE ONE (23:14)
[2021-09-13] MEDS: ATORVASTATIN CA 20 MG TABLET (FP) PO SCH ×2 (00:23→21:59)
[2021-09-13] MEDS: GABAPENTIN 300 MG CAPSULE PO SCH ×4 (00:23→21:59)
[2021-09-13] MEDS: INSULIN SLIDING SCALE (NOVOLOG) 1 VIAL SQ SCH ×5 (00:23→22:00)
[2021-09-13] MEDS: EZETIMIBE 10 MG TABLET (FP) PO SCH ×2 (00:23→21:59)
[2021-09-13] MEDS: APIXABAN 5 MG TABLET PO SCH ×3 (00:23→21:59)
[2021-09-13 04:13] VITALS: BMI 59.6
[2021-09-13] MEDS: FUROSEMIDE 40 MG/4 ML INJECTABLE VIAL IVPUSH SCH ×2 (06:33→14:18)
[2021-09-13] MEDS: LEVOTHYROXINE NA 125 MCG TABLET (FP) PO SCH (06:43)
[2021-09-13] MEDS: ASPIRIN COATED 81 MG TABLET.EC PO SCH (10:14)
[2021-09-13] MEDS: SACUBITRIL/VALSARTAN 24 MG-26 MG TABLET PO SCH (10:15)
[2021-09-13] MEDS: NIFEdipine E.R 60 MG TABLET PO SCH (10:15)
[2021-09-13 15:00] LABS: EOS % 6.2 % (0-4.5); HEMATOCRIT 28.7 % (32.4-45.2); HEMOGLOBIN 9.5 GM/dL (10.7-15.3); LYMPH % 32.5 % (8-40); MCH 29.9 pg (25.7-33.7); MEAN CELL VOLUME 90.7 fl (80-96); MEAN PLT VOLUME 9.6 fl (7.5-11.1); MONO % 7.9 % (3.8-10.2); NEUT % 52.4 % (42.8-82.8); PLATELET COUNT 216 10^3/uL (134-434); RBC 3.16 M/mm3 (3.60-5.2); RDW 12.6 % (11.6-15.6); WHITE BLOOD COUNT 6.6 K/mm3 (4.0-10.0)
[2021-09-13 15:44] LABS: BLOOD UREA NITROGEN 68.1 mg/dL (7-18)
[2021-09-13 15:45] LABS: ALBUMIN 3.3 g/dl (3.4-5.0); BILIRUBIN,TOTAL 0.3 mg/dL (0.2-1); CALCIUM 8.6 mg/dL (8.5-10.1); PHOSPHOROUS 5.1 mg/dL (2.5-4.9); TOT PROT 8.1 g/dl (6.4-8.2)
[2021-09-14] MEDS: GABAPENTIN 300 MG CAPSULE PO SCH ×3 (06:29→22:06)
[2021-09-14] MEDS: LEVOTHYROXINE NA 125 MCG TABLET (FP) PO SCH (06:29)
[2021-09-14] MEDS: FUROSEMIDE 40 MG/4 ML INJECTABLE VIAL IVPUSH SCH ×2 (06:29→13:37)
[2021-09-14] MEDS: INSULIN SLIDING SCALE (NOVOLOG) 1 VIAL SQ SCH ×4 (06:29→22:08)
[2021-09-14] MEDS: NIFEdipine E.R 60 MG TABLET PO SCH (09:27)
[2021-09-14] MEDS: APIXABAN 5 MG TABLET PO SCH ×2 (09:27→22:06)
[2021-09-14] MEDS: SACUBITRIL/VALSARTAN 24 MG-26 MG TABLET PO SCH (09:27)
[2021-09-14] MEDS: ASPIRIN COATED 81 MG TABLET.EC PO SCH (09:27)
[2021-09-14] MEDS: SODIUM ZIRCONIUM CYCLOSILICATE (LOKELMA) 5 GM PACKET PO SCH (11:40)
[2021-09-14 13:12] LABS: BASO % 0.8 % (0-2.0); EOS % 5.6 % (0-4.5); HEMATOCRIT 29.6 % (32.4-45.2); HEMOGLOBIN 9.7 GM/dL (10.7-15.3); LYMPH % 28.4 % (8-40); MCH 29.9 pg (25.7-33.7); MCHC 32.7 g/dl (32.0-36.0); MEAN CELL VOLUME 91.4 fl (80-96); MEAN PLT VOLUME 9.8 fl (7.5-11.1); MONO % 7.2 % (3.8-10.2); PLATELET COUNT 226 10^3/uL (134-434); RBC 3.24 M/mm3 (3.60-5.2); RDW 12.6 % (11.6-15.6); WHITE BLOOD COUNT 8.2 K/mm3 (4.0-10.0)
[2021-09-14 13:40] LABS: ALBUMIN 3.4 g/dl (3.4-5.0); CALCIUM 8.7 mg/dL (8.5-10.1); MAGNESIUM 2.2 mg/dL (1.8-2.4)
[2021-09-14 13:44] LABS: CREATININE 4.2 mg/dL (0.55-1.3); PHOSPHOROUS 5.5 mg/dL (2.5-4.9)
[2021-09-14 13:45] LABS: BILIRUBIN,TOTAL 0.3 mg/dL (0.2-1)
[2021-09-14 13:50] LABS: TOT PROT 8.3 g/dl (6.4-8.2)
[2021-09-14] MEDS ORDERED: TORSEMIDE 20 MG TABLET (FP) PO SCH (14:00)
[2021-09-14 14:15] LABS: BLOOD UREA NITROGEN 72.4 mg/dL (7-18)
[2021-09-14] MEDS: EZETIMIBE 10 MG TABLET (FP) PO SCH (22:06)
[2021-09-14] MEDS: ATORVASTATIN CA 20 MG TABLET (FP) PO SCH (22:06)
[2021-09-15] MEDS: GABAPENTIN 300 MG CAPSULE PO SCH ×3 (06:00→21:17)
[2021-09-15] MEDS: LEVOTHYROXINE NA 125 MCG TABLET (FP) PO SCH (06:00)
[2021-09-15] MEDS: INSULIN SLIDING SCALE (NOVOLOG) 1 VIAL SQ SCH ×4 (06:01→21:26)
[2021-09-15] MEDS: SODIUM ZIRCONIUM CYCLOSILICATE (LOKELMA) 5 GM PACKET PO SCH (10:05)
[2021-09-15] MEDS: ASPIRIN COATED 81 MG TABLET.EC PO SCH (10:05)
[2021-09-15] MEDS: TORSEMIDE 100 MG TABLET PO SCH (10:06)
[2021-09-15] MEDS: SACUBITRIL/VALSARTAN 24 MG-26 MG TABLET PO SCH (10:06)
[2021-09-15] MEDS: ACETAMINOPHEN 325 MG TABLET (FP) PO PRN ×2 (10:06→21:18)
[2021-09-15] MEDS: APIXABAN 5 MG TABLET PO SCH ×2 (10:06→21:19)
[2021-09-15] MEDS: NIFEdipine E.R 60 MG TABLET PO SCH (10:06)
[2021-09-15] MEDS ORDERED: BISACODYL 5 MG TABLET.DR (FP) PO ONE ×2 (13:00→15:15)
[2021-09-15 16:20] LABS: BLOOD UREA NITROGEN 75.6 mg/dL (7-18); CALCIUM 8.7 mg/dL (8.5-10.1)
[2021-09-15 16:23] LABS: CREATININE 4.4 mg/dL (0.55-1.3)
[2021-09-15 19:15] VITALS: RESP 20
[2021-09-15] MEDS: ATORVASTATIN CA 20 MG TABLET (FP) PO SCH (21:19)
[2021-09-15] MEDS: EZETIMIBE 10 MG TABLET (FP) PO SCH (21:19)
[2021-09-16] MEDS: GABAPENTIN 300 MG CAPSULE PO SCH (05:43)
[2021-09-16] MEDS: LEVOTHYROXINE NA 125 MCG TABLET (FP) PO SCH (06:58)
[2021-09-16] MEDS: INSULIN SLIDING SCALE (NOVOLOG) 1 VIAL SQ SCH ×2 (06:58→12:08)
[2021-09-16 09:20] VITALS: BP 136/76; PULSE 81; TEMP 97.9
[2021-09-16 09:30] LABS: CALCIUM 8.8 mg/dL (8.5-10.1)
[2021-09-16 09:31] LABS: ALBUMIN 3.4 g/dl (3.4-5.0); BLOOD UREA NITROGEN 76.1 mg/dL (7-18)
[2021-09-16 09:34] LABS: CREATININE 4.2 mg/dL (0.55-1.3)
[2021-09-16 09:35] LABS: BILIRUBIN,TOTAL 0.3 mg/dL (0.2-1)
[2021-09-16] MEDS: SACUBITRIL/VALSARTAN 24 MG-26 MG TABLET PO SCH (09:43)
[2021-09-16] MEDS: APIXABAN 5 MG TABLET PO SCH (09:43)
[2021-09-16] MEDS: ACETAMINOPHEN 325 MG TABLET (FP) PO PRN (09:43)
[2021-09-16] MEDS: TORSEMIDE 100 MG TABLET PO SCH (09:43)
[2021-09-16] MEDS: SODIUM ZIRCONIUM CYCLOSILICATE (LOKELMA) 5 GM PACKET PO SCH (09:43)
[2021-09-16] MEDS: ASPIRIN COATED 81 MG TABLET.EC PO SCH (09:43)
[2021-09-16] MEDS: NIFEdipine E.R 60 MG TABLET PO SCH (09:43)
== END 2021-09-16 14:51 | disposition home or self-care (01) | DRG 194 ==
LOC: JER 08:29 → JERBED 10:58 → J4W 09-13 03:44
PROVIDERS: ADMIT Internal Medicine; ATTEND Internal Medicine
DX: I13.0 Hypertensive heart and chronic kidney disease with heart failure and stage 1 through stage 4 chronic kidney disease, or unspecified chronic kidney disease (principal); J44.9 Chronic obstructive pulmonary disease, unspecified; E66.01 Morbid (severe) obesity due to excess calories; E03.9 Hypothyroidism, unspecified; Z79.01 Long term (current) use of anticoagulants; E78.5 Hyperlipidemia, unspecified; Z79.4 Long term (current) use of insulin; E11.22 Type 2 diabetes mellitus with diabetic chronic kidney disease; N18.9 Chronic kidney disease, unspecified; G47.30 Sleep apnea, unspecified; I50.33 Acute on chronic diastolic (congestive) heart failure; G47.33 Obstructive sleep apnea (adult) (pediatric); I48.0 Paroxysmal atrial fibrillation; Z68.43 Body mass index [BMI] 50.0-59.9, adult; L97.919 Non-pressure chronic ulcer of unspecified part of right lower leg with unspecified severity; N18.4 Chronic kidney disease, stage 4 (severe); N17.9 Acute kidney failure, unspecified; E87.5 Hyperkalemia; I89.0 Lymphedema, not elsewhere classified
CPT/HCPCS: 36415; 71045-TC-FY; 71046-TC-FY; 80048; 80053; 82962; 83735; 83880; 84100; 84484; 84703; 85025; 85610; 85730; 87070; 87186; 87205; 93005; 93010; 94660; 99285-25; C9803-CS; U0003; U0005

== ENCOUNTER 2021-09-19 23:23 | Inpatient (IN) | payer OTHER ==
[2021-09-19] MEDS ORDERED: FUROSEMIDE 40 MG/4 ML INJECTABLE VIAL IVPUSH ONE (23:50)
[2021-09-19] MEDS ORDERED: methylPREDNISolone NA SUCC 125 MG/2 ML VIAL IVPB ONE (23:50)
[2021-09-19] MEDS ORDERED: LEVALBUTEROL HCL 0.63 MG/3 ML VIAL.NEB. IH ONE (23:51)
[2021-09-20] MEDS ORDERED: methylPREDNISolone NA SUCC 125 MG/2 ML VIAL ONE (00:03)
[2021-09-20] MEDS ORDERED: ALBUTEROL SO4 2.5/IPRATROPIUM 0.5 INH SOL 3 ML VIAL.NEB. NEB ONE (00:03)
[2021-09-20] MEDS ORDERED: LEVALBUTEROL HCL 0.63 MG/3 ML VIAL.NEB. IH ONE (00:17)
[2021-09-20] MEDS: ALBUTEROL SO4 2.5/IPRATROPIUM 0.5 INH SOL 3 ML VIAL.NEB. NEB SCH ×8 (00:30→20:05)
[2021-09-20 00:51] LABS: HEMATOCRIT 27.6 % (32.4-45.2); HEMOGLOBIN 9.2 GM/dL (10.7-15.3); LYMPH % 36.4 % (8-40); MCH 29.9 pg (25.7-33.7); MCHC 33.2 g/dl (32.0-36.0); MEAN PLT VOLUME 9.4 fl (7.5-11.1); NEUT % 48.6 % (42.8-82.8); PLATELET COUNT 239 10^3/uL (134-434); RBC 3.07 M/mm3 (3.60-5.2); RDW 12.3 % (11.6-15.6); WHITE BLOOD COUNT 9.2 K/mm3 (4.0-10.0)
[2021-09-20] MEDS ORDERED: FUROSEMIDE 40 MG/4 ML INJECTABLE VIAL ONE (01:15)
[2021-09-20] MEDS ORDERED: PIPERACILLIN/TAZOB 2.25 GM 2.25 GM in DEXTROSE 5%-WATER - 50 ML IVPB ONE (01:40)
[2021-09-20] MEDS ORDERED: PIPERACILLIN/TAZOB 2.25 GM 2.25 GM/50 ML BAG IVPB ONE (01:47)
[2021-09-20] MEDS ORDERED: VANCOMYCIN 1 GM in D5W (PRE-DOCKED) 1,000 MG/250 ML IVPB ONE (01:51)
[2021-09-20 01:59] LABS: ARTERIAL BLOOD GAS BASE EXCESS -2.4 mmol/L (-2-2); ARTERIAL BLOOD GAS pH 7.286 (7.350-7.450)
[2021-09-20 02:10] LABS: ARTERIAL BLOOD GAS PO2 37.5 mmHg (80-100)
[2021-09-20] MEDS ORDERED: VANCOMYCIN/WATER FOR INJ (PEG) 1,000 MG/200 ML BAG IVPB ONE (02:32)
[2021-09-20 02:40] LABS: CHLORIDE 106 mmol/L (98-107); SODIUM 141 mmol/L (136-145)
[2021-09-20 02:42] LABS: ALBUMIN 3.4 g/dl (3.4-5.0); ANION GAP 12 MMOL/L (8-16); BLOOD UREA NITROGEN 83.2 mg/dL (7-18); CO2 23 mmol/L (21-32); GLUCOSE,RANDOM 95 mg/dL (74-106)
[2021-09-20 02:45] LABS: CREATININE 4.6 mg/dL (0.55-1.3); SGOT/AST 18 U/L (15-37); SGPT/ALT 18 U/L (13-61)
[2021-09-20 02:47] LABS: BILIRUBIN,TOTAL 0.2 mg/dL (0.2-1); TOT PROT 8.4 g/dl (6.4-8.2)
[2021-09-20 02:48] LABS: ALK PHOS 115 U/L (45-117)
[2021-09-20 02:50] LABS: N-TERMINAL BNP 1089.4 pg/ml (5-125)
[2021-09-20] MEDS ORDERED: ALBUTEROL SO4 HFA INHALER IH PRN (02:54)
[2021-09-20] MEDS ORDERED: FUROSEMIDE 40 MG/4 ML INJECTABLE VIAL IVPUSH ONE (03:55)
[2021-09-20] MEDS ORDERED: DOXEPIN HCL 10 MG CAPSULE PO PRN (04:50)
[2021-09-20 07:11] LABS: ARTERIAL BLD GAS O2 SATURATION 95.7 % (95-98); ARTERIAL BLOOD GAS PO2 87.1 mmHg (80-100); ARTERIAL BLOOD GAS pH 7.303 (7.350-7.450)
[2021-09-20 07:12] LABS: ALLENS TEST POSITIVE; VENT MODE EPAP 6; VENT RATE 14
[2021-09-20] MEDS: LEVOTHYROXINE SODIUM 100 MCG VIAL IVPUSH SCH (07:12)
[2021-09-20 07:15] LABS: BASO % 0.6 % (0-2.0); EOS % 0.4 % (0-4.5); HEMATOCRIT 29.1 % (32.4-45.2); HEMOGLOBIN 9.6 GM/dL (10.7-15.3); LYMPH % 12.4 % (8-40); MCH 29.8 pg (25.7-33.7); MEAN CELL VOLUME 90.3 fl (80-96); MEAN PLT VOLUME 9.5 fl (7.5-11.1); MONO % 2.5 % (3.8-10.2); NEUT % 84.1 % (42.8-82.8); PLATELET COUNT 239 10^3/uL (134-434); RBC 3.22 M/mm3 (3.60-5.2); RDW 12.9 % (11.6-15.6)
[2021-09-20] MEDS: INSULIN SLIDING SCALE (NOVOLOG) 1 VIAL SQ SCH ×4 (07:18→21:31)
[2021-09-20] MEDS ORDERED: FUROSEMIDE 40 MG/4 ML INJECTABLE VIAL IVPUSH SCH ×3 (07:30→10:00)
[2021-09-20 07:44] LABS: ALBUMIN 3.4 g/dl (3.4-5.0); BLOOD UREA NITROGEN 82.8 mg/dL (7-18); MAGNESIUM 2.2 mg/dL (1.8-2.4)
[2021-09-20 07:47] LABS: CREATININE 4.5 mg/dL (0.55-1.3); PHOSPHOROUS 4.3 mg/dL (2.5-4.9)
[2021-09-20 07:48] LABS: BILIRUBIN,TOTAL 0.4 mg/dL (0.2-1); TOT PROT 8.8 g/dl (6.4-8.2)
[2021-09-20] MEDS: ASPIRIN COATED 81 MG TABLET.EC PO SCH (09:53)
[2021-09-20] MEDS: SODIUM ZIRCONIUM CYCLOSILICATE (LOKELMA) 5 GM PACKET PO SCH (09:53)
[2021-09-20] MEDS: methylPREDNISolone NA SUCC 40 MG/1 ML VIAL IVPUSH SCH (09:53)
[2021-09-20] MEDS: SACUBITRIL/VALSARTAN 24 MG-26 MG TABLET PO SCH (09:53)
[2021-09-20] MEDS: APIXABAN 5 MG TABLET PO SCH ×2 (09:53→21:31)
[2021-09-20] MEDS: MUPIROCIN 2% TOPICAL OINTMENT FOR DECOLONIZATION NS SCH ×2 (09:53→21:30)
[2021-09-20] MEDS: PANTOPRAZOLE SODIUM 40 MG VIAL IVPUSH SCH (09:53)
[2021-09-20] MEDS ORDERED: PIPERACILLIN/TAZOB 3.375 GM 3.375 GM in DEXTROSE 5%-WATER - 50 ML IVPB SCH (10:45)
[2021-09-20] MEDS ORDERED: LABETALOL HCL 5 MG/1 ML (100MG/20 ML VIAL) IVPUSH ONE (12:13)
[2021-09-20] MEDS: DOXYCYCLINE INJECTION 100 MG in DEXTROSE 5%-WATER 100 ML IVPB SCH ×2 (14:15→21:33)
[2021-09-20] MEDS ORDERED: NIFEdipine E.R. 30 MG TABLET PO SCH (15:00)
[2021-09-20] MEDS: LABETALOL HCL 5 MG/1 ML (100MG/20 ML VIAL) IVPUSH PRN ×2 (18:00→23:28)
[2021-09-20] MEDS ORDERED: NIFEdipine E.R. 30 MG TABLET PO ONE (18:01)
[2021-09-20] MEDS: PIPERACILLIN/TAZOB 3.375 GM 3.375 GM in DEXTROSE 5%-WATER - 50 ML IVPB SCH ×2 (18:04→23:29)
[2021-09-20] MEDS: CHLORHEXIDINE GLUCONATE 4% CLEANSER FOR DECOLONIZATION TP SCH (21:31)
[2021-09-20] MEDS: ATORVASTATIN CA 20 MG TABLET (FP) PO SCH (21:31)
[2021-09-20] MEDS: EZETIMIBE 10 MG TABLET (FP) PO SCH (21:34)
[2021-09-20] MEDS: guaiFENesin/D-METHORPHAN HB 10 ML UNIT-DOSE CUPS PO PRN (22:00)
[2021-09-21] MEDS: LEVOTHYROXINE SODIUM 100 MCG VIAL IVPUSH SCH (06:12)
[2021-09-21] MEDS: PIPERACILLIN/TAZOB 3.375 GM 3.375 GM in DEXTROSE 5%-WATER - 50 ML IVPB SCH ×4 (06:12→23:28)
[2021-09-21] MEDS: INSULIN SLIDING SCALE (NOVOLOG) 1 VIAL SQ SCH ×4 (06:41→21:33)
[2021-09-21 08:09] LABS: BASO % 0.3 % (0-2.0); BLOOD UREA NITROGEN 89.1 mg/dL (7-18); HEMATOCRIT 26.1 % (32.4-45.2); HEMOGLOBIN 8.6 GM/dL (10.7-15.3); LYMPH % 9.8 % (8-40); MAGNESIUM 2.1 mg/dL (1.8-2.4); MCH 29.9 pg (25.7-33.7); MCHC 33.1 g/dl (32.0-36.0); MEAN CELL VOLUME 90.2 fl (80-96); MEAN PLT VOLUME 10.2 fl (7.5-11.1); MONO % 6.4 % (3.8-10.2); NEUT % 83.5 % (42.8-82.8); RBC 2.89 M/mm3 (3.60-5.2); RDW 12.7 % (11.6-15.6)
[2021-09-21 08:12] LABS: CREATININE 4.2 mg/dL (0.55-1.3); PHOSPHOROUS 4.2 mg/dL (2.5-4.9)
[2021-09-21 08:14] LABS: WHITE BLOOD COUNT 19.5 K/mm3 (4.0-10.0)
[2021-09-21 08:15] LABS: PLATELET COUNT 197 10^3/uL (134-434)
[2021-09-21] MEDS: ALBUTEROL SO4 2.5/IPRATROPIUM 0.5 INH SOL 3 ML VIAL.NEB. NEB SCH ×4 (08:16→20:51)
[2021-09-21] MEDS: PANTOPRAZOLE SODIUM 40 MG VIAL IVPUSH SCH (09:59)
[2021-09-21] MEDS: DOXYCYCLINE INJECTION 100 MG in DEXTROSE 5%-WATER 100 ML IVPB SCH ×2 (10:00→21:17)
[2021-09-21] MEDS ORDERED: NIFEdipine E.R 60 MG TABLET PO SCH (10:00)
[2021-09-21] MEDS: SODIUM ZIRCONIUM CYCLOSILICATE (LOKELMA) 5 GM PACKET PO SCH (10:01)
[2021-09-21] MEDS: ASPIRIN COATED 81 MG TABLET.EC PO SCH (10:01)
[2021-09-21] MEDS: SACUBITRIL/VALSARTAN 24 MG-26 MG TABLET PO SCH (10:01)
[2021-09-21] MEDS: APIXABAN 5 MG TABLET PO SCH ×2 (10:01→21:16)
[2021-09-21] MEDS: methylPREDNISolone NA SUCC 40 MG/1 ML VIAL IVPUSH SCH (10:01)
[2021-09-21] MEDS: MUPIROCIN 2% TOPICAL OINTMENT FOR DECOLONIZATION NS SCH ×3 (10:01→21:16)
[2021-09-21] MEDS: guaiFENesin/D-METHORPHAN HB 10 ML UNIT-DOSE CUPS PO PRN ×2 (10:24→21:19)
[2021-09-21] MEDS ORDERED: NIFEdipine E.R. 30 MG TABLET PO ONE (11:26)
[2021-09-21] MEDS: LABETALOL HCL 5 MG/1 ML (100MG/20 ML VIAL) IVPUSH PRN (12:11)
[2021-09-21] MEDS: ACETAMINOPHEN 325 MG TABLET (FP) PO PRN (15:40)
[2021-09-21] MEDS: CHLORHEXIDINE GLUCONATE 4% CLEANSER FOR DECOLONIZATION TP SCH (21:17)
[2021-09-21] MEDS: ATORVASTATIN CA 20 MG TABLET (FP) PO SCH (21:17)
[2021-09-21] MEDS: EZETIMIBE 10 MG TABLET (FP) PO SCH (21:18)
[2021-09-22] MEDS ORDERED: MELATONIN 5 MG TABLETS PO ONE (01:16)
[2021-09-22] MEDS: ACETAMINOPHEN 325 MG TABLET (FP) PO PRN (02:15)
[2021-09-22] MEDS: LABETALOL HCL 5 MG/1 ML (100MG/20 ML VIAL) IVPUSH PRN (05:05)
[2021-09-22] MEDS: INSULIN SLIDING SCALE (NOVOLOG) 1 VIAL SQ SCH ×4 (06:17→21:45)
[2021-09-22] MEDS: PIPERACILLIN/TAZOB 3.375 GM 3.375 GM in DEXTROSE 5%-WATER - 50 ML IVPB SCH ×3 (06:17→17:49)
[2021-09-22] MEDS: LEVOTHYROXINE SODIUM 100 MCG VIAL IVPUSH SCH (06:18)
[2021-09-22] MEDS: ALBUTEROL SO4 2.5/IPRATROPIUM 0.5 INH SOL 3 ML VIAL.NEB. NEB SCH ×4 (07:40→20:05)
[2021-09-22 08:22] LABS: CHLORIDE 106 mmol/L (98-107); SODIUM 139 mmol/L (136-145)
[2021-09-22 08:24] LABS: ANION GAP 10 MMOL/L (8-16); CO2 23 mmol/L (21-32); GLUCOSE,RANDOM 330 mg/dL (74-106)
[2021-09-22 08:28] LABS: CREATININE 4.8 mg/dL (0.55-1.3)
[2021-09-22 08:35] LABS: MAGNESIUM 2.4 mg/dL (1.8-2.4)
[2021-09-22 08:38] LABS: PHOSPHOROUS 4.4 mg/dL (2.5-4.9)
[2021-09-22 08:42] LABS: BLOOD UREA NITROGEN 105.4 mg/dL (7-18)
[2021-09-22 08:45] LABS: BASO % 0.4 % (0-2.0); HEMATOCRIT 26.9 % (32.4-45.2); HEMOGLOBIN 8.7 GM/dL (10.7-15.3); LYMPH % 11.4 % (8-40); MCH 29.3 pg (25.7-33.7); MCHC 32.3 g/dl (32.0-36.0); MEAN CELL VOLUME 90.7 fl (80-96); MEAN PLT VOLUME 9.8 fl (7.5-11.1); MONO % 8.5 % (3.8-10.2); NEUT % 79.7 % (42.8-82.8); PLATELET COUNT 232 10^3/uL (134-434); RBC 2.97 M/mm3 (3.60-5.2); RDW 12.7 % (11.6-15.6); WHITE BLOOD COUNT 14.3 K/mm3 (4.0-10.0)
[2021-09-22] MEDS: DOXYCYCLINE INJECTION 100 MG in DEXTROSE 5%-WATER 100 ML IVPB SCH ×2 (09:06→21:37)
[2021-09-22] MEDS: NIFEdipine E.R 60 MG TABLET PO SCH (09:06)
[2021-09-22] MEDS: MUPIROCIN 2% TOPICAL OINTMENT FOR DECOLONIZATION NS SCH ×2 (09:07→21:38)
[2021-09-22] MEDS: PANTOPRAZOLE SODIUM 40 MG VIAL IVPUSH SCH (09:07)
[2021-09-22] MEDS: methylPREDNISolone NA SUCC 40 MG/1 ML VIAL IVPUSH SCH (09:07)
[2021-09-22] MEDS: ASPIRIN COATED 81 MG TABLET.EC PO SCH (09:07)
[2021-09-22] MEDS: APIXABAN 5 MG TABLET PO SCH ×2 (09:07→21:37)
[2021-09-22] MEDS: SODIUM ZIRCONIUM CYCLOSILICATE (LOKELMA) 5 GM PACKET PO SCH (09:07)
[2021-09-22] MEDS: SACUBITRIL/VALSARTAN 24 MG-26 MG TABLET PO SCH (09:07)
[2021-09-22] MEDS: guaiFENesin/D-METHORPHAN HB 10 ML UNIT-DOSE CUPS PO PRN ×2 (12:23→21:54)
[2021-09-22] MEDS: INSULIN (LEVEMIR) 100 UNITS/ML UNITS SQ SCH ×2 (14:11→21:45)
[2021-09-22] MEDS: INSULIN (NOVOLOG) ASPART 100 UNITS/ML 10ML VIAL SQ SCH (17:51)
[2021-09-22] MEDS ORDERED: BENZOCAINE/MENTH/CETYLPYRD CL 1 EACH LOZENGE MM PRN (17:54)
[2021-09-22] MEDS ORDERED: BENZOCAINE/MENTHOL (CHLORASEPTIC ) LOZENGE MM PRN (17:59)
[2021-09-22] MEDS: ATORVASTATIN CA 20 MG TABLET (FP) PO SCH (21:37)
[2021-09-22] MEDS: CHLORHEXIDINE GLUCONATE 4% CLEANSER FOR DECOLONIZATION TP SCH (21:37)
[2021-09-22] MEDS: EZETIMIBE 10 MG TABLET (FP) PO SCH (21:37)
[2021-09-23] MEDS: PIPERACILLIN/TAZOB 3.375 GM 3.375 GM in DEXTROSE 5%-WATER - 50 ML IVPB SCH ×4 (00:30→17:06)
[2021-09-23] MEDS: LEVOTHYROXINE SODIUM 100 MCG VIAL IVPUSH SCH (06:27)
[2021-09-23] MEDS: INSULIN SLIDING SCALE (NOVOLOG) 1 VIAL SQ SCH ×4 (06:38→21:28)
[2021-09-23] MEDS: INSULIN (NOVOLOG) ASPART 100 UNITS/ML 10ML VIAL SQ SCH ×3 (06:38→17:02)
[2021-09-23 07:52] LABS: BASO % 0.6 % (0-2.0); HEMATOCRIT 27.5 % (32.4-45.2); LYMPH % 12.7 % (8-40); MCH 29.3 pg (25.7-33.7); MCHC 32.8 g/dl (32.0-36.0); MEAN CELL VOLUME 89.3 fl (80-96); MEAN PLT VOLUME 9.7 fl (7.5-11.1); MONO % 7.9 % (3.8-10.2); NEUT % 78.8 % (42.8-82.8); PLATELET COUNT 235 10^3/uL (134-434); RBC 3.08 M/mm3 (3.60-5.2); WHITE BLOOD COUNT 14.5 K/mm3 (4.0-10.0)
[2021-09-23] MEDS: ALBUTEROL SO4 2.5/IPRATROPIUM 0.5 INH SOL 3 ML VIAL.NEB. NEB SCH ×4 (07:55→20:21)
[2021-09-23 08:09] LABS: CHLORIDE 102 mmol/L (98-107); SODIUM 138 mmol/L (136-145)
[2021-09-23 08:13] LABS: ANION GAP 13 MMOL/L (8-16); CALCIUM 7.9 mg/dL (8.5-10.1); CO2 23 mmol/L (21-32); GLUCOSE,RANDOM 267 mg/dL (74-106); MAGNESIUM 2.1 mg/dL (1.8-2.4)
[2021-09-23 08:16] LABS: CREATININE 5.2 mg/dL (0.55-1.3); PHOSPHOROUS 5.5 mg/dL (2.5-4.9)
[2021-09-23 08:28] LABS: BLOOD UREA NITROGEN 109.3 mg/dL (7-18)
[2021-09-23] MEDS: MUPIROCIN 2% TOPICAL OINTMENT FOR DECOLONIZATION NS SCH ×2 (09:00→21:17)
[2021-09-23] MEDS: SODIUM ZIRCONIUM CYCLOSILICATE (LOKELMA) 5 GM PACKET PO SCH (09:01)
[2021-09-23] MEDS: NIFEdipine E.R 60 MG TABLET PO SCH (09:01)
[2021-09-23] MEDS: ASPIRIN COATED 81 MG TABLET.EC PO SCH (09:01)
[2021-09-23] MEDS: APIXABAN 5 MG TABLET PO SCH ×2 (09:01→21:17)
[2021-09-23] MEDS: methylPREDNISolone NA SUCC 40 MG/1 ML VIAL IVPUSH SCH (09:02)
[2021-09-23] MEDS: PANTOPRAZOLE SODIUM 40 MG VIAL IVPUSH SCH (09:23)
[2021-09-23] MEDS: DOXYCYCLINE INJECTION 100 MG in DEXTROSE 5%-WATER 100 ML IVPB SCH (09:23)
[2021-09-23] MEDS: INSULIN (LEVEMIR) 100 UNITS/ML UNITS SQ SCH ×2 (09:29→21:27)
[2021-09-23] MEDS ORDERED: FUROSEMIDE 100 MG/10 ML INJECTABLE VIAL IVPB ONE (11:22)
[2021-09-23] MEDS: LABETALOL HCL 5 MG/1 ML (100MG/20 ML VIAL) IVPUSH SCH (14:31)
[2021-09-23] MEDS: EZETIMIBE 10 MG TABLET (FP) PO SCH (21:17)
[2021-09-23] MEDS: ATORVASTATIN CA 20 MG TABLET (FP) PO SCH (21:17)
[2021-09-23] MEDS: CHLORHEXIDINE GLUCONATE 4% CLEANSER FOR DECOLONIZATION TP SCH (21:34)
[2021-09-23] MEDS ORDERED: MELATONIN 5 MG TABLETS PO ONE (22:08)
[2021-09-23] MEDS: guaiFENesin/D-METHORPHAN HB 10 ML UNIT-DOSE CUPS PO PRN (22:10)
[2021-09-24] MEDS: PIPERACILLIN/TAZOB 3.375 GM 3.375 GM in DEXTROSE 5%-WATER - 50 ML IVPB SCH ×4 (00:22→17:34)
[2021-09-24] MEDS: LABETALOL HCL 5 MG/1 ML (100MG/20 ML VIAL) IVPUSH SCH (00:22)
[2021-09-24] MEDS: INSULIN SLIDING SCALE (NOVOLOG) 1 VIAL SQ SCH ×4 (06:17→21:13)
[2021-09-24] MEDS: INSULIN (NOVOLOG) ASPART 100 UNITS/ML 10ML VIAL SQ SCH ×3 (06:18→17:23)
[2021-09-24] MEDS: LEVOTHYROXINE SODIUM 100 MCG VIAL IVPUSH SCH (06:21)
[2021-09-24 07:39] LABS: BASO % 0.7 % (0-2.0); EOS % 0.9 % (0-4.5); LYMPH % 19.7 % (8-40); MCH 30.6 pg (25.7-33.7); MCHC 33.5 g/dl (32.0-36.0); MEAN CELL VOLUME 91.3 fl (80-96); MEAN PLT VOLUME 9.3 fl (7.5-11.1); MONO % 8.7 % (3.8-10.2); PLATELET COUNT 178 10^3/uL (134-434); RBC 2.63 M/mm3 (3.60-5.2); RDW 12.5 % (11.6-15.6); WHITE BLOOD COUNT 13.9 K/mm3 (4.0-10.0)
[2021-09-24 07:49] LABS: CHLORIDE 102 mmol/L (98-107); SODIUM 138 mmol/L (136-145)
[2021-09-24 07:54] LABS: ANION GAP 13 MMOL/L (8-16); CALCIUM 7.4 mg/dL (8.5-10.1); CO2 22 mmol/L (21-32); MAGNESIUM 2.3 mg/dL (1.8-2.4)
[2021-09-24 07:55] LABS: GLUCOSE,RANDOM 216 mg/dL (74-106)
[2021-09-24 07:57] LABS: CREATININE 5.9 mg/dL (0.55-1.3); PHOSPHOROUS 7.4 mg/dL (2.5-4.9); SGPT/ALT 61 U/L (13-61)
[2021-09-24 07:58] LABS: SGOT/AST 94 U/L (15-37)
[2021-09-24 07:59] LABS: BILIRUBIN,TOTAL 0.5 mg/dL (0.2-1); TOT PROT 7.5 g/dl (6.4-8.2)
[2021-09-24] MEDS: ALBUTEROL SO4 2.5/IPRATROPIUM 0.5 INH SOL 3 ML VIAL.NEB. NEB SCH ×4 (08:00→20:23)
[2021-09-24 08:02] LABS: ALBUMIN 2.5 g/dl (3.4-5.0); ALK PHOS 82 U/L (45-117); BLOOD UREA NITROGEN 126.2 mg/dL (7-18)
[2021-09-24] MEDS: MUPIROCIN 2% TOPICAL OINTMENT FOR DECOLONIZATION NS SCH ×2 (09:18→21:09)
[2021-09-24] MEDS: ASPIRIN COATED 81 MG TABLET.EC PO SCH (09:18)
[2021-09-24] MEDS: APIXABAN 5 MG TABLET PO SCH ×2 (09:19→21:08)
[2021-09-24] MEDS: NIFEdipine E.R 60 MG TABLET PO SCH (09:19)
[2021-09-24] MEDS: PANTOPRAZOLE SODIUM 40 MG VIAL IVPUSH SCH (09:20)
[2021-09-24] MEDS: methylPREDNISolone NA SUCC 40 MG/1 ML VIAL IVPUSH SCH (09:20)
[2021-09-24] MEDS: SODIUM ZIRCONIUM CYCLOSILICATE (LOKELMA) 5 GM PACKET PO SCH (09:21)
[2021-09-24] MEDS: NIFEdipine E.R. 90 MG TABLET PO SCH (09:45)
[2021-09-24] MEDS: INSULIN (LEVEMIR) 100 UNITS/ML UNITS SQ SCH ×2 (09:45→21:13)
[2021-09-24] MEDS: DOXYCYCLINE INJECTION 100 MG in DEXTROSE 5%-WATER 100 ML IVPB SCH ×2 (12:03→21:07)
[2021-09-24] MEDS: CALCIUM ACETATE 667 MG CAPSULE (FP) PO SCH (17:31)
[2021-09-24] MEDS ORDERED: POLYETHYLENE GLYCOL (HEALTHYLAX) 3350 17 GM PACKET PO PRN (20:46)
[2021-09-24] MEDS: LABETALOL HCL 100 MG TABLET (FP) PO SCH (21:07)
[2021-09-24] MEDS: ATORVASTATIN CA 20 MG TABLET (FP) PO SCH (21:08)
[2021-09-24] MEDS: EZETIMIBE 10 MG TABLET (FP) PO SCH (21:08)
[2021-09-24] MEDS: CHLORHEXIDINE GLUCONATE 4% CLEANSER FOR DECOLONIZATION TP SCH (21:09)
[2021-09-24] MEDS: guaiFENesin/D-METHORPHAN HB 10 ML UNIT-DOSE CUPS PO PRN (22:06)
[2021-09-25] MEDS: PIPERACILLIN/TAZOB 3.375 GM 3.375 GM in DEXTROSE 5%-WATER - 50 ML IVPB SCH ×4 (05:50→17:26)
[2021-09-25] MEDS: LEVOTHYROXINE SODIUM 100 MCG VIAL IVPUSH SCH (06:01)
[2021-09-25] MEDS: INSULIN (NOVOLOG) ASPART 100 UNITS/ML 10ML VIAL SQ SCH ×3 (06:03→16:41)
[2021-09-25] MEDS: INSULIN SLIDING SCALE (NOVOLOG) 1 VIAL SQ SCH ×4 (06:03→22:00)
[2021-09-25] MEDS: CALCIUM ACETATE 667 MG CAPSULE (FP) PO SCH ×3 (08:24→17:26)
[2021-09-25] MEDS: SODIUM ZIRCONIUM CYCLOSILICATE (LOKELMA) 5 GM PACKET PO SCH (09:38)
[2021-09-25] MEDS: DOXYCYCLINE INJECTION 100 MG in DEXTROSE 5%-WATER 100 ML IVPB SCH ×2 (09:39→22:00)
[2021-09-25] MEDS: methylPREDNISolone NA SUCC 40 MG/1 ML VIAL IVPUSH SCH (09:40)
[2021-09-25] MEDS: NIFEdipine E.R. 90 MG TABLET PO SCH (09:41)
[2021-09-25] MEDS: ASPIRIN COATED 81 MG TABLET.EC PO SCH (09:41)
[2021-09-25] MEDS: PANTOPRAZOLE SODIUM 40 MG VIAL IVPUSH SCH (09:41)
[2021-09-25] MEDS: APIXABAN 5 MG TABLET PO SCH ×2 (09:41→21:58)
[2021-09-25] MEDS: INSULIN (LEVEMIR) 100 UNITS/ML UNITS SQ SCH ×2 (09:41→21:58)
[2021-09-25] MEDS: LABETALOL HCL 100 MG TABLET (FP) PO SCH ×2 (09:41→22:00)
[2021-09-25 13:12] LABS: CHLORIDE 104 mmol/L (98-107); SODIUM 140 mmol/L (136-145)
[2021-09-25 13:15] LABS: ALBUMIN 2.5 g/dl (3.4-5.0); ANION GAP 13 MMOL/L (8-16); CALCIUM 7.5 mg/dL (8.5-10.1); CO2 23 mmol/L (21-32); GLUCOSE,RANDOM 153 mg/dL (74-106)
[2021-09-25 13:18] LABS: SGPT/ALT 53 U/L (13-61)
[2021-09-25 13:19] LABS: CREATININE 5.6 mg/dL (0.55-1.3); SGOT/AST 49 U/L (15-37)
[2021-09-25 13:20] LABS: BILIRUBIN,TOTAL 0.3 mg/dL (0.2-1); TOT PROT 7.2 g/dl (6.4-8.2)
[2021-09-25 13:21] LABS: ALK PHOS 77 U/L (45-117); BLOOD UREA NITROGEN 139.6 mg/dL (7-18)
[2021-09-25] MEDS: CHLORHEXIDINE GLUCONATE 4% CLEANSER FOR DECOLONIZATION TP SCH (21:58)
[2021-09-25] MEDS: ATORVASTATIN CA 20 MG TABLET (FP) PO SCH (22:00)
[2021-09-25] MEDS: EZETIMIBE 10 MG TABLET (FP) PO SCH (22:01)
[2021-09-25] MEDS ORDERED: MELATONIN 5 MG TABLETS PO SCH (22:30)
[2021-09-26] MEDS: PIPERACILLIN/TAZOB 3.375 GM 3.375 GM in DEXTROSE 5%-WATER - 50 ML IVPB SCH ×3 (00:50→13:58)
[2021-09-26] MEDS: LEVOTHYROXINE SODIUM 100 MCG VIAL IVPUSH SCH (06:20)
[2021-09-26] MEDS: INSULIN (NOVOLOG) ASPART 100 UNITS/ML 10ML VIAL SQ SCH ×3 (06:40→17:00)
[2021-09-26] MEDS: INSULIN SLIDING SCALE (NOVOLOG) 1 VIAL SQ SCH ×4 (06:40→21:35)
[2021-09-26 08:08] LABS: HEMATOCRIT 25.2 % (32.4-45.2); HEMOGLOBIN 8.2 GM/dL (10.7-15.3); MCH 29.4 pg (25.7-33.7); MCHC 32.4 g/dl (32.0-36.0); MEAN CELL VOLUME 90.5 fl (80-96); MEAN PLT VOLUME 9.6 fl (7.5-11.1); PLATELET COUNT 224 10^3/uL (134-434); RBC 2.79 M/mm3 (3.60-5.2); RDW 12.7 % (11.6-15.6); WHITE BLOOD COUNT 11.4 K/mm3 (4.0-10.0)
[2021-09-26 08:22] LABS: CHLORIDE 105 mmol/L (98-107); SODIUM 143 mmol/L (136-145)
[2021-09-26 08:23] LABS: CALCIUM 7.4 mg/dL (8.5-10.1)
[2021-09-26 08:24] LABS: ANION GAP 14 MMOL/L (8-16); CO2 24 mmol/L (21-32); GLUCOSE,RANDOM 206 mg/dL (74-106); MAGNESIUM 2.4 mg/dL (1.8-2.4)
[2021-09-26 08:27] LABS: CREATININE 5.4 mg/dL (0.55-1.3); PHOSPHOROUS 6.6 mg/dL (2.5-4.9)
[2021-09-26 08:32] LABS: N-TERMINAL BNP 1677.7 pg/ml (5-125)
[2021-09-26 08:33] LABS: BLOOD UREA NITROGEN 126.1 mg/dL (7-18)
[2021-09-26] MEDS ORDERED: INSULIN (LEVEMIR) 100 UNITS/ML UNITS SQ SCH (10:00)
[2021-09-26] MEDS: PANTOPRAZOLE SODIUM 40 MG VIAL IVPUSH SCH (10:21)
[2021-09-26] MEDS: NIFEdipine E.R. 90 MG TABLET PO SCH (10:22)
[2021-09-26] MEDS: SODIUM ZIRCONIUM CYCLOSILICATE (LOKELMA) 5 GM PACKET PO SCH (10:22)
[2021-09-26] MEDS: ASPIRIN COATED 81 MG TABLET.EC PO SCH (10:22)
[2021-09-26] MEDS: CALCIUM ACETATE 667 MG CAPSULE (FP) PO SCH ×3 (10:22→17:46)
[2021-09-26] MEDS: methylPREDNISolone NA SUCC 40 MG/1 ML VIAL IVPUSH SCH (10:22)
[2021-09-26] MEDS: LABETALOL HCL 100 MG TABLET (FP) PO SCH ×2 (10:22→21:26)
[2021-09-26] MEDS: APIXABAN 5 MG TABLET PO SCH ×2 (10:22→21:26)
[2021-09-26] MEDS: DOXYCYCLINE INJECTION 100 MG in DEXTROSE 5%-WATER 100 ML IVPB SCH ×2 (10:22→21:26)
[2021-09-26 15:20] VITALS: BMI 62.1
[2021-09-26] MEDS ORDERED: POLYETHYLENE GLYCOL (HEALTHYLAX) 3350 17 GM PACKET PO PRN (15:38)
[2021-09-26] MEDS ORDERED: ALBUTEROL SO4 HFA INHALER IH PRN (15:38)
[2021-09-26] MEDS ORDERED: ACETAMINOPHEN 325 MG TABLET (FP) PO PRN (15:38)
[2021-09-26] MEDS ORDERED: BENZOCAINE/MENTHOL (CHLORASEPTIC ) LOZENGE MM PRN (15:38)
[2021-09-26] MEDS ORDERED: guaiFENesin/D-METHORPHAN HB 10 ML UNIT-DOSE CUPS PO PRN (15:38)
[2021-09-26] MEDS ORDERED: DOXEPIN HCL 10 MG CAPSULE PO PRN (15:38)
[2021-09-26] MEDS: MELATONIN 5 MG TABLETS PO SCH (21:26)
[2021-09-26] MEDS: ATORVASTATIN CA 20 MG TABLET (FP) PO SCH (21:26)
[2021-09-26] MEDS: INSULIN (LEVEMIR) 100 UNITS/ML UNITS SQ SCH (21:35)
[2021-09-26] MEDS: EZETIMIBE 10 MG TABLET (FP) PO SCH (21:53)
[2021-09-27] MEDS: LEVOTHYROXINE SODIUM 100 MCG VIAL IVPUSH SCH (06:23)
[2021-09-27] MEDS: INSULIN (LEVEMIR) 100 UNITS/ML UNITS SQ SCH ×2 (06:25→21:32)
[2021-09-27] MEDS: INSULIN (NOVOLOG) ASPART 100 UNITS/ML 10ML VIAL SQ SCH ×3 (06:25→17:11)
[2021-09-27] MEDS: INSULIN SLIDING SCALE (NOVOLOG) 1 VIAL SQ SCH ×4 (06:26→21:33)
[2021-09-27] MEDS: CALCIUM ACETATE 667 MG CAPSULE (FP) PO SCH ×3 (08:22→17:15)
[2021-09-27] MEDS: ASPIRIN COATED 81 MG TABLET.EC PO SCH (09:21)
[2021-09-27] MEDS: LABETALOL HCL 100 MG TABLET (FP) PO SCH ×2 (09:21→21:17)
[2021-09-27] MEDS: APIXABAN 5 MG TABLET PO SCH ×2 (09:21→21:17)
[2021-09-27] MEDS: DOXYCYCLINE INJECTION 100 MG in DEXTROSE 5%-WATER 100 ML IVPB SCH ×2 (09:22→21:17)
[2021-09-27] MEDS: NIFEdipine E.R. 90 MG TABLET PO SCH (09:22)
[2021-09-27] MEDS: SODIUM ZIRCONIUM CYCLOSILICATE (LOKELMA) 5 GM PACKET PO SCH (09:22)
[2021-09-27] MEDS: methylPREDNISolone NA SUCC 40 MG/1 ML VIAL IVPUSH SCH (09:23)
[2021-09-27] MEDS: PANTOPRAZOLE SODIUM 40 MG VIAL IVPUSH SCH (09:23)
[2021-09-27 09:38] LABS: HEMATOCRIT 25.4 % (32.4-45.2); HEMOGLOBIN 8.6 GM/dL (10.7-15.3); MCH 30.6 pg (25.7-33.7); MCHC 33.9 g/dl (32.0-36.0); MEAN CELL VOLUME 90.2 fl (80-96); MEAN PLT VOLUME 9.2 fl (7.5-11.1); PLATELET COUNT 240 10^3/uL (134-434); RBC 2.82 M/mm3 (3.60-5.2); RDW 12.7 % (11.6-15.6); WHITE BLOOD COUNT 12.3 K/mm3 (4.0-10.0)
[2021-09-27 09:57] LABS: CHLORIDE 107 mmol/L (98-107); SODIUM 141 mmol/L (136-145)
[2021-09-27 10:04] LABS: ANION GAP 11 MMOL/L (8-16); CALCIUM 7.7 mg/dL (8.5-10.1); CO2 23 mmol/L (21-32)
[2021-09-27 10:05] LABS: ALBUMIN 2.7 g/dl (3.4-5.0); GLUCOSE,RANDOM 101 mg/dL (74-106); MAGNESIUM 2.4 mg/dL (1.8-2.4)
[2021-09-27 10:07] LABS: CREATININE 4.6 mg/dL (0.55-1.3); PHOSPHOROUS 5.9 mg/dL (2.5-4.9); SGPT/ALT 43 U/L (13-61)
[2021-09-27 10:08] LABS: SGOT/AST 32 U/L (15-37)
[2021-09-27 10:09] LABS: BILIRUBIN,TOTAL 0.2 mg/dL (0.2-1); TOT PROT 7.5 g/dl (6.4-8.2)
[2021-09-27 10:10] LABS: ALK PHOS 72 U/L (45-117); BLOOD UREA NITROGEN 123.4 mg/dL (7-18)
[2021-09-27 10:30] LABS: ANISOCYTOSIS 0; MACROCYTOSIS 0
[2021-09-27] MEDS: EZETIMIBE 10 MG TABLET (FP) PO SCH (21:17)
[2021-09-27] MEDS: ATORVASTATIN CA 20 MG TABLET (FP) PO SCH (21:17)
[2021-09-27] MEDS: MELATONIN 5 MG TABLETS PO SCH (21:17)
[2021-09-28] MEDS: INSULIN SLIDING SCALE (NOVOLOG) 1 VIAL SQ SCH ×3 (06:08→16:25)
[2021-09-28] MEDS: INSULIN (NOVOLOG) ASPART 100 UNITS/ML 10ML VIAL SQ SCH ×3 (06:09→16:25)
[2021-09-28] MEDS: INSULIN (LEVEMIR) 100 UNITS/ML UNITS SQ SCH (06:19)
[2021-09-28] MEDS: LEVOTHYROXINE SODIUM 100 MCG VIAL IVPUSH SCH (06:20)
[2021-09-28] MEDS: CALCIUM ACETATE 667 MG CAPSULE (FP) PO SCH ×3 (08:39→16:42)
[2021-09-28] MEDS: DOXYCYCLINE INJECTION 100 MG in DEXTROSE 5%-WATER 100 ML IVPB SCH (09:10)
[2021-09-28] MEDS: APIXABAN 5 MG TABLET PO SCH (09:10)
[2021-09-28] MEDS: ASPIRIN COATED 81 MG TABLET.EC PO SCH (09:10)
[2021-09-28] MEDS: LABETALOL HCL 100 MG TABLET (FP) PO SCH (09:10)
[2021-09-28] MEDS: NIFEdipine E.R. 90 MG TABLET PO SCH (09:10)
[2021-09-28] MEDS: PANTOPRAZOLE SODIUM 40 MG VIAL IVPUSH SCH (09:11)
[2021-09-28] MEDS: methylPREDNISolone NA SUCC 40 MG/1 ML VIAL IVPUSH SCH (09:11)
[2021-09-28 09:47] LABS: HEMATOCRIT 25.5 % (32.4-45.2); HEMOGLOBIN 8.1 GM/dL (10.7-15.3); MCH 28.9 pg (25.7-33.7); MCHC 31.9 g/dl (32.0-36.0); MEAN CELL VOLUME 90.5 fl (80-96); MEAN PLT VOLUME 9.4 fl (7.5-11.1); PLATELET COUNT 243 10^3/uL (134-434); RBC 2.82 M/mm3 (3.60-5.2); RDW 12.9 % (11.6-15.6)
[2021-09-28 10:14] LABS: CALCIUM 8.2 mg/dL (8.5-10.1)
[2021-09-28 10:15] LABS: ALBUMIN 2.7 g/dl (3.4-5.0); BLOOD UREA NITROGEN 99.1 mg/dL (7-18); MAGNESIUM 2.3 mg/dL (1.8-2.4)
[2021-09-28 10:18] LABS: CREATININE 3.9 mg/dL (0.55-1.3)
[2021-09-28 10:19] LABS: BILIRUBIN,TOTAL 0.4 mg/dL (0.2-1); TOT PROT 7.2 g/dl (6.4-8.2)
[2021-09-28 10:26] LABS: ANISOCYTOSIS 0; MACROCYTOSIS 0
[2021-09-28] MEDS: SODIUM ZIRCONIUM CYCLOSILICATE (LOKELMA) 5 GM PACKET PO SCH (11:23)
[2021-09-28 16:11] VITALS: BP 146/53; PULSE 91; RESP 18; TEMP 98.4
== END 2021-09-28 17:30 | disposition home or self-care (01) | DRG 137 ==
LOC: JER 23:23 → JERBED 09-20 01:40 → JICU 09-20 04:36 → J7W 09-26 16:57
PROVIDERS: ADMIT Internal Medicine Pulmonary Disease; ATTEND Nurse Practitioner Family
DX: J69.0 Pneumonitis due to inhalation of food and vomit (principal); J96.01 Acute respiratory failure with hypoxia; N17.9 Acute kidney failure, unspecified; E78.5 Hyperlipidemia, unspecified; J44.9 Chronic obstructive pulmonary disease, unspecified; E03.9 Hypothyroidism, unspecified; I48.91 Unspecified atrial fibrillation; I24.8 Other forms of acute ischemic heart disease; G47.30 Sleep apnea, unspecified; N83.209 Unspecified ovarian cyst, unspecified side; I25.10 Atherosclerotic heart disease of native coronary artery without angina pectoris; J44.0 Chronic obstructive pulmonary disease with (acute) lower respiratory infection; J44.1 Chronic obstructive pulmonary disease with (acute) exacerbation; E66.01 Morbid (severe) obesity due to excess calories; Z68.44 Body mass index [BMI] 60.0-69.9, adult; E87.5 Hyperkalemia; M54.50 Low back pain, unspecified; L97.919 Non-pressure chronic ulcer of unspecified part of right lower leg with unspecified severity; I48.0 Paroxysmal atrial fibrillation; I13.0 Hypertensive heart and chronic kidney disease with heart failure and stage 1 through stage 4 chronic kidney disease, or unspecified chronic kidney disease; I50.32 Chronic diastolic (congestive) heart failure; N18.9 Chronic kidney disease, unspecified; E11.22 Type 2 diabetes mellitus with diabetic chronic kidney disease; Z98.84 Bariatric surgery status; Z99.81 Dependence on supplemental oxygen
CPT/HCPCS: 0241U-QW; 36415; 36600; 71045-TC-FY; 80048; 80053; 82308; 82803; 82962; 83735; 83880; 84100; 84484; 85025; 85027; 87040; 87070; 87205; 87899; 93005; 93010; 94010; 94640; 94660; 95810; 97116-GP; 97162-GP; 99285-25; G0480

== ENCOUNTER 2021-10-04 10:33 | Inpatient (IN) | payer OTHER ==
[2021-10-04] MEDS ORDERED: NITROGLYCERIN 2% OINTMENT - 1GM PACKET TD ONE (10:41)
[2021-10-04] MEDS ORDERED: NITROGLYCERIN SUBLINGUAL 1/150 0.4 MG TAB ONE (10:42)
[2021-10-04] MEDS ORDERED: NITROGLYCERIN SUBLINGUAL 1/150 0.4 MG TAB SL ONE (10:44)
[2021-10-04 11:07] LABS: VENOUS BASE EXCESS -6.8 mmol/L (-2-2); VENOUS O2 SATURATION 93.6 % (70-80); VENOUS PCO2 38.3 mmHg (38-52); VENOUS PH 7.311 (7.310-7.410)
[2021-10-04 11:24] LABS: INR 1.28 (0.83-1.09); PROTHROMBIN TIME (PATIENT) 14.8 SEC (9.7-13.0)
[2021-10-04 11:31] LABS: BASO % 0.6 % (0-2.0); HEMATOCRIT 23.7 % (32.4-45.2); HEMOGLOBIN 7.5 GM/dL (10.7-15.3); LYMPH % 19.3 % (8-40); MCH 28.7 pg (25.7-33.7); MCHC 31.7 g/dl (32.0-36.0); MEAN CELL VOLUME 90.5 fl (80-96); MEAN PLT VOLUME 11.2 fl (7.5-11.1); MONO % 6.6 % (3.8-10.2); NEUT % 72.5 % (42.8-82.8); PLATELET COUNT 176 10^3/uL (134-434); RBC 2.62 M/mm3 (3.60-5.2); RDW 13.3 % (11.6-15.6); WHITE BLOOD COUNT 16.4 K/mm3 (4.0-10.0)
[2021-10-04 12:50] LABS: ALK PHOS 112 U/L (45-117); ANION GAP 12 MMOL/L (8-16); BILIRUBIN,TOTAL 0.6 mg/dL (0.2-1); BLOOD UREA NITROGEN 89.4 mg/dL (7-18); CALCIUM 8.1 mg/dL (8.5-10.1); CHLORIDE 111 mmol/L (98-107); CO2 18 mmol/L (21-32); CREATININE 3.7 mg/dL (0.55-1.3); GLUCOSE,RANDOM 162 mg/dL (74-106); SGOT/AST 113 U/L (15-37); SGPT/ALT 189 U/L (13-61); SODIUM 141 mmol/L (136-145); TOT PROT 7.6 g/dl (6.4-8.2)
[2021-10-04] MEDS ORDERED: FUROSEMIDE 40 MG/4 ML INJECTABLE VIAL IVPUSH ONE (12:57)
[2021-10-04] MEDS ORDERED: FUROSEMIDE 40 MG/4 ML INJECTABLE VIAL ONE ×2 (13:44→22:31)
[2021-10-04] MEDS ORDERED: NIFEdipine E.R 60 MG TABLET PO ONE (17:39)
[2021-10-04] MEDS ORDERED: NIFEdipine E.R 60 MG TABLET ONE (17:56)
[2021-10-04] MEDS: INSULIN SLIDING SCALE (NOVOLOG) 1 VIAL SQ SCH ×2 (18:12→23:06)
[2021-10-04] MEDS: Insulin (LOG) Aspart 100 UNITS/ML VIAL SQ SCH (18:12)
[2021-10-04 18:42] LABS: EPI CELLS 5 /uL (0-25.1); HYALINE CASTS 0 /uL (0-3.1); URINE APPEARANCE CLEAR; URINE BACTERIA >9,000 /uL (0-1359); URINE BILIRUBIN NEGATIVE (NEGATIVE); URINE COLOR YELLOW; URINE GLUCOSE (UA) NEGATIVE (NEGATIVE); URINE KETONE NEGATIVE (NEGATIVE); URINE LEUK ESTERASE TRACE (NEGATIVE); URINE NITRITE NEGATIVE (NEGATIVE); URINE PROTEIN 2+ (NEGATIVE); URINE UROBILINOGEN 0.2 mg/dL (0.2-1.0); URINE WBC 52 /uL (0-25.8)
[2021-10-04 19:01] LABS: URINE RBC 124.3 /uL (0-23.9)
[2021-10-04] MEDS ORDERED: FUROSEMIDE 100 MG/10 ML INJECTABLE VIAL IVPB ONE (20:00)
[2021-10-04] MEDS ORDERED: HEPARIN NA (PORCINE) 5,000 UNITS/ML 1ML VIAL ONE (21:14)
[2021-10-04] MEDS ORDERED: PREGABALIN 100 MG CAPSULE ONE (21:16)
[2021-10-04] MEDS ORDERED: PANTOPRAZOLE SODIUM 40 MG VIAL ONE (21:17)
[2021-10-04] MEDS ORDERED: APIXABAN 5 MG TABLET ONE (22:30)
[2021-10-04] MEDS ORDERED: ATORVASTATIN CA 20 MG TABLET (FP) ONE (22:30)
[2021-10-04] MEDS ORDERED: LABETALOL HCL 100 MG TABLET (FP) ONE (22:43)
[2021-10-04] MEDS: APIXABAN 5 MG TABLET PO SCH (23:05)
[2021-10-04] MEDS: LABETALOL HCL 100 MG TABLET (FP) PO SCH (23:06)
[2021-10-04] MEDS: INSULIN (LEVEMIR) 100 UNITS/ML UNITS SQ SCH (23:06)
[2021-10-04] MEDS: EZETIMIBE 10 MG TABLET (FP) PO SCH (23:06)
[2021-10-04] MEDS: ATORVASTATIN CA 20 MG TABLET (FP) PO SCH (23:06)
[2021-10-04] MEDS ORDERED: ACETAMINOPHEN 500 MG TABLET (FP) PO ONE (23:33)
[2021-10-04] MEDS ORDERED: ACETAMINOPHEN 500 MG TABLET (FP) ONE (23:45)
[2021-10-04] MEDS ORDERED: guaiFENesin/D-METHORPHAN HB 10 ML UNIT-DOSE CUPS ONE (23:45)
[2021-10-04] MEDS: guaiFENesin/D-M SUGAR-FREE/ACLHOL-FREE 5 ML UNIT DOSE PO PRN (23:47)
[2021-10-05] MEDS ORDERED: FUROSEMIDE 40 MG/4 ML INJECTABLE VIAL ONE ×3 (05:37→11:45)
[2021-10-05] MEDS: FUROSEMIDE 40 MG/4 ML INJECTABLE VIAL IVPUSH SCH ×2 (05:52→13:11)
[2021-10-05] MEDS: INSULIN SLIDING SCALE (NOVOLOG) 1 VIAL SQ SCH ×4 (06:20→21:52)
[2021-10-05] MEDS: Insulin (LOG) Aspart 100 UNITS/ML VIAL SQ SCH ×3 (06:20→17:16)
[2021-10-05] MEDS ORDERED: LABETALOL HCL 100 MG TABLET (FP) ONE (08:16)
[2021-10-05] MEDS ORDERED: ASPIRIN COATED 81 MG TABLET.EC ONE (08:16)
[2021-10-05] MEDS ORDERED: APIXABAN 5 MG TABLET ONE (08:16)
[2021-10-05] MEDS ORDERED: NIFEdipine E.R 60 MG TABLET ONE (08:17)
[2021-10-05] MEDS ORDERED: NIFEdipine E.R. 30 MG TABLET ONE (08:17)
[2021-10-05] MEDS ORDERED: SODIUM ZIRCONIUM CYCLOSILICATE (LOKELMA) 5 GM PACKET ONE (08:17)
[2021-10-05] MEDS: APIXABAN 5 MG TABLET PO SCH ×2 (09:15→21:50)
[2021-10-05] MEDS: ASPIRIN COATED 81 MG TABLET.EC PO SCH (09:15)
[2021-10-05] MEDS: INSULIN (LEVEMIR) 100 UNITS/ML UNITS SQ SCH ×2 (09:16→21:52)
[2021-10-05] MEDS: SODIUM ZIRCONIUM CYCLOSILICATE (LOKELMA) 5 GM PACKET PO SCH (09:16)
[2021-10-05] MEDS: LABETALOL HCL 100 MG TABLET (FP) PO SCH ×2 (09:16→21:50)
[2021-10-05] MEDS: NIFEdipine E.R. 90 MG TABLET PO SCH (09:16)
[2021-10-05 09:35] LABS: BASO % 0.3 % (0-2.0); EOS % 0.2 % (0-4.5); HEMATOCRIT 24.3 % (32.4-45.2); HEMOGLOBIN 7.9 GM/dL (10.7-15.3); MCH 29.6 pg (25.7-33.7); MCHC 32.6 g/dl (32.0-36.0); MEAN CELL VOLUME 90.7 fl (80-96); MEAN PLT VOLUME 10.8 fl (7.5-11.1); MONO % 7.3 % (3.8-10.2); NEUT % 82.2 % (42.8-82.8); PLATELET COUNT 179 10^3/uL (134-434); RBC 2.68 M/mm3 (3.60-5.2); RDW 13.7 % (11.6-15.6); WHITE BLOOD COUNT 19.1 K/mm3 (4.0-10.0)
[2021-10-05 10:08] LABS: CALCIUM 8.6 mg/dL (8.5-10.1)
[2021-10-05 10:10] LABS: BLOOD UREA NITROGEN 82.9 mg/dL (7-18); MAGNESIUM 2.1 mg/dL (1.8-2.4)
[2021-10-05 10:11] LABS: PHOSPHOROUS 4.9 mg/dL (2.5-4.9)
[2021-10-05 10:12] LABS: CREATININE 3.5 mg/dL (0.55-1.3)
[2021-10-05 10:13] LABS: BILIRUBIN,TOTAL 0.6 mg/dL (0.2-1)
[2021-10-05] MEDS ORDERED: PIPERACILLIN/TAZOB 2.25 GM 2.25 GM in DEXTROSE 5%-WATER - 50 ML IVPB SCH (11:30)
[2021-10-05] MEDS ORDERED: ALBUTEROL SO4 2.5/IPRATROPIUM 0.5 INH SOL 3 ML VIAL.NEB. NEB ONE ×4 (11:45→22:42)
[2021-10-05] MEDS ORDERED: PIPERACILLIN/TAZOB 2.25 GM 2.25 GM/50 ML BAG IVPB ONE (12:16)
[2021-10-05 13:25] LABS: ARTERIAL BLD GAS O2 SATURATION 67.6 % (95-98); ARTERIAL BLOOD GAS pH 7.396 (7.350-7.450)
[2021-10-05 13:26] LABS: ALLENS TEST POSITIVE
[2021-10-05 13:27] LABS: VENT MODE EPAP; VENT RATE 14
[2021-10-05 13:28] LABS: ARTERIAL BLOOD GAS PO2 35.1 mmHg (80-100)
[2021-10-05] MEDS: CEFTRIAXONE 1 GM in DEXTROSE 5%-WATER - 50 ML IVPB SCH (13:57)
[2021-10-05] MEDS ORDERED: ALBUTEROL SO4 HFA INHALER IH PRN (14:17)
[2021-10-05] MEDS ORDERED: DOXEPIN HCL 10 MG CAPSULE PO PRN (14:17)
[2021-10-05] MEDS: SACUBITRIL/VALSARTAN 24 MG-26 MG TABLET PO SCH (14:29)
[2021-10-05] MEDS: LEVOTHYROXINE NA 125 MCG TABLET (FP) PO SCH (14:47)
[2021-10-05] MEDS: guaiFENesin/D-M SUGAR-FREE/ACLHOL-FREE 5 ML UNIT DOSE PO PRN (17:08)
[2021-10-05] MEDS ORDERED: FUROSEMIDE 40 MG/4 ML INJECTABLE VIAL IVPUSH ONE (19:40)
[2021-10-05] MEDS: ATORVASTATIN CA 20 MG TABLET (FP) PO SCH (21:50)
[2021-10-05] MEDS: EZETIMIBE 10 MG TABLET (FP) PO SCH (21:50)
[2021-10-05] MEDS: CHLORHEXIDINE GLUCONATE 4% CLEANSER FOR DECOLONIZATION TP SCH (21:52)
[2021-10-05] MEDS: MUPIROCIN 2% TOPICAL OINTMENT FOR DECOLONIZATION NS SCH (21:52)
[2021-10-05] MEDS ORDERED: MUPIROCIN 2% TOPICAL OINTMENT FOR DECOLONIZATION NS SCH (22:00)
[2021-10-05] MEDS ORDERED: CHLORHEXIDINE GLUCONATE 4% CLEANSER FOR DECOLONIZATION TP SCH (22:00)
[2021-10-06] MEDS: Insulin (LOG) Aspart 100 UNITS/ML VIAL SQ SCH ×3 (06:44→17:23)
[2021-10-06] MEDS: INSULIN SLIDING SCALE (NOVOLOG) 1 VIAL SQ SCH ×4 (06:44→22:04)
[2021-10-06] MEDS: FUROSEMIDE 40 MG/4 ML INJECTABLE VIAL IVPUSH SCH ×2 (06:44→13:42)
[2021-10-06] MEDS: LEVOTHYROXINE NA 125 MCG TABLET (FP) PO SCH (06:44)
[2021-10-06 07:54] LABS: BASO % 0.5 % (0-2.0); EOS % 0.6 % (0-4.5); HEMATOCRIT 23.7 % (32.4-45.2); HEMOGLOBIN 7.5 GM/dL (10.7-15.3); LYMPH % 8.9 % (8-40); MCH 28.9 pg (25.7-33.7); MCHC 31.7 g/dl (32.0-36.0); MEAN CELL VOLUME 91.1 fl (80-96); MONO % 6.3 % (3.8-10.2); NEUT % 83.7 % (42.8-82.8); PLATELET COUNT 184 10^3/uL (134-434); RDW 13.8 % (11.6-15.6); WHITE BLOOD COUNT 14.4 K/mm3 (4.0-10.0)
[2021-10-06 08:19] LABS: ALBUMIN 2.4 g/dl (3.4-5.0); BLOOD UREA NITROGEN 78.5 mg/dL (7-18); CALCIUM 8.1 mg/dL (8.5-10.1); CREATININE 3.7 mg/dL (0.55-1.3)
[2021-10-06 08:20] LABS: MAGNESIUM 1.8 mg/dL (1.8-2.4)
[2021-10-06 08:21] LABS: BILIRUBIN,TOTAL 0.5 mg/dL (0.2-1)
[2021-10-06 08:22] LABS: PHOSPHOROUS 5.2 mg/dL (2.5-4.9)
[2021-10-06] MEDS: CEFTRIAXONE 1 GM in DEXTROSE 5%-WATER - 50 ML IVPB SCH (09:50)
[2021-10-06] MEDS: SODIUM ZIRCONIUM CYCLOSILICATE (LOKELMA) 5 GM PACKET PO SCH (09:51)
[2021-10-06] MEDS: SACUBITRIL/VALSARTAN 24 MG-26 MG TABLET PO SCH (09:51)
[2021-10-06] MEDS: NIFEdipine E.R. 90 MG TABLET PO SCH (09:51)
[2021-10-06] MEDS: LABETALOL HCL 100 MG TABLET (FP) PO SCH ×2 (09:51→21:25)
[2021-10-06] MEDS: ASPIRIN COATED 81 MG TABLET.EC PO SCH (09:51)
[2021-10-06] MEDS: MUPIROCIN 2% TOPICAL OINTMENT FOR DECOLONIZATION NS SCH ×2 (09:52→21:25)
[2021-10-06] MEDS: APIXABAN 5 MG TABLET PO SCH ×2 (09:52→21:25)
[2021-10-06] MEDS ORDERED: guaiFENesin/D-M SUGAR-FREE/ACLHOL-FREE 5 ML UNIT DOSE PO PRN (10:47)
[2021-10-06] MEDS: INSULIN (LEVEMIR) 100 UNITS/ML UNITS SQ SCH ×2 (11:43→22:14)
[2021-10-06] MEDS ORDERED: ACETAMINOPHEN 1000 MG/100 ML BAG IVPB STA (20:07)
[2021-10-06] MEDS ORDERED: HYDROmorphone HCl 2 MG/ML VIAL IVPUSH STA (20:07)
[2021-10-06] MEDS: CHLORHEXIDINE GLUCONATE 4% CLEANSER FOR DECOLONIZATION TP SCH (21:25)
[2021-10-06] MEDS ORDERED: INSULIN (LEVEMIR) 100 UNITS/ML UNITS SQ SCH (22:00)
[2021-10-06] MEDS ORDERED: EZETIMIBE 10 MG TABLET (FP) PO SCH (22:00)
[2021-10-06] MEDS ORDERED: ATORVASTATIN CA 20 MG TABLET (FP) PO SCH (22:00)
[2021-10-06] MEDS: ALBUTEROL SO4 2.5/IPRATROPIUM 0.5 INH SOL 3 ML VIAL.NEB. NEB SCH (22:16)
[2021-10-07] MEDS ORDERED: ACETAMINOPHEN 1000 MG/100 ML BAG IVPB PRN (04:00)
[2021-10-07] MEDS: FUROSEMIDE 40 MG/4 ML INJECTABLE VIAL IVPUSH SCH ×2 (06:16→13:56)
[2021-10-07] MEDS: LEVOTHYROXINE NA 125 MCG TABLET (FP) PO SCH (06:17)
[2021-10-07] MEDS: INSULIN (LEVEMIR) 100 UNITS/ML UNITS SQ SCH ×2 (06:17→21:37)
[2021-10-07] MEDS: INSULIN SLIDING SCALE (NOVOLOG) 1 VIAL SQ SCH ×4 (06:17→21:38)
[2021-10-07 07:33] LABS: HEMATOCRIT 22.7 % (32.4-45.2); HEMOGLOBIN 7.3 GM/dL (10.7-15.3); MCH 29.6 pg (25.7-33.7); MCHC 32.2 g/dl (32.0-36.0); MEAN CELL VOLUME 91.8 fl (80-96); MEAN PLT VOLUME 10.8 fl (7.5-11.1); PLATELET COUNT 181 10^3/uL (134-434); RBC 2.47 M/mm3 (3.60-5.2); RDW 13.7 % (11.6-15.6); WHITE BLOOD COUNT 9.7 K/mm3 (4.0-10.0)
[2021-10-07] MEDS: ALBUTEROL SO4 2.5/IPRATROPIUM 0.5 INH SOL 3 ML VIAL.NEB. NEB SCH ×4 (08:00→20:25)
[2021-10-07 08:29] LABS: ALBUMIN 2.3 g/dl (3.4-5.0); BLOOD UREA NITROGEN 88.3 mg/dL (7-18); CALCIUM 7.9 mg/dL (8.5-10.1)
[2021-10-07 08:32] LABS: PHOSPHOROUS 6.7 mg/dL (2.5-4.9)
[2021-10-07 08:34] LABS: BILIRUBIN,TOTAL 0.4 mg/dL (0.2-1); TOT PROT 6.7 g/dl (6.4-8.2)
[2021-10-07] MEDS: APIXABAN 5 MG TABLET PO SCH ×2 (09:23→21:38)
[2021-10-07] MEDS: LABETALOL HCL 100 MG TABLET (FP) PO SCH ×2 (09:23→21:38)
[2021-10-07] MEDS: MUPIROCIN 2% TOPICAL OINTMENT FOR DECOLONIZATION NS SCH (09:24)
[2021-10-07] MEDS ORDERED: CEFTRIAXONE 1 GM in DEXTROSE 5%-WATER - 50 ML IVPB SCH (10:00)
[2021-10-07] MEDS ORDERED: SODIUM ZIRCONIUM CYCLOSILICATE (LOKELMA) 5 GM PACKET PO SCH (10:00)
[2021-10-07] MEDS ORDERED: ASPIRIN COATED 81 MG TABLET.EC PO SCH (10:00)
[2021-10-07] MEDS ORDERED: NIFEdipine E.R. 90 MG TABLET PO SCH (10:00)
[2021-10-07 13:53] LABS: CALCIUM 8.1 mg/dL (8.5-10.1)
[2021-10-07 13:57] LABS: CREATININE 3.9 mg/dL (0.55-1.3)
[2021-10-07] MEDS ORDERED: ALBUTEROL SO4 HFA INHALER IH PRN (14:41)
[2021-10-07] MEDS ORDERED: guaiFENesin/D-M SUGAR-FREE/ACLHOL-FREE 5 ML UNIT DOSE PO PRN (14:41)
[2021-10-07] MEDS: ATORVASTATIN CA 20 MG TABLET (FP) PO SCH (21:38)
[2021-10-07] MEDS: EZETIMIBE 10 MG TABLET (FP) PO SCH (21:38)
[2021-10-08] MEDS: LEVOTHYROXINE NA 125 MCG TABLET (FP) PO SCH (06:46)
[2021-10-08] MEDS: INSULIN (LEVEMIR) 100 UNITS/ML UNITS SQ SCH ×2 (06:48→21:25)
[2021-10-08] MEDS: INSULIN SLIDING SCALE (NOVOLOG) 1 VIAL SQ SCH ×4 (06:48→21:24)
[2021-10-08] MEDS: FUROSEMIDE 40 MG/4 ML INJECTABLE VIAL IVPUSH SCH ×2 (06:48→13:31)
[2021-10-08 07:38] LABS: HEMATOCRIT 21.3 % (32.4-45.2); MCH 29.4 pg (25.7-33.7); MCHC 32.3 g/dl (32.0-36.0); MEAN PLT VOLUME 10.7 fl (7.5-11.1); PLATELET COUNT 193 10^3/uL (134-434); RBC 2.34 M/mm3 (3.60-5.2); RDW 13.6 % (11.6-15.6); WHITE BLOOD COUNT 8.7 K/mm3 (4.0-10.0)
[2021-10-08 08:02] LABS: ALBUMIN 2.2 g/dl (3.4-5.0); BLOOD UREA NITROGEN 84.2 mg/dL (7-18); CALCIUM 7.9 mg/dL (8.5-10.1); MAGNESIUM 2.1 mg/dL (1.8-2.4)
[2021-10-08] MEDS: ALBUTEROL SO4 2.5/IPRATROPIUM 0.5 INH SOL 3 ML VIAL.NEB. NEB SCH ×4 (08:02→20:34)
[2021-10-08 08:05] LABS: CREATININE 3.9 mg/dL (0.55-1.3)
[2021-10-08 08:08] LABS: PHOSPHOROUS 5.3 mg/dL (2.5-4.9)
[2021-10-08 08:09] LABS: BILIRUBIN,TOTAL 0.3 mg/dL (0.2-1); TOT PROT 6.4 g/dl (6.4-8.2)
[2021-10-08 08:22] LABS: HEMOGLOBIN 6.9 GM/dL (10.7-15.3)
[2021-10-08] MEDS: NIFEdipine E.R. 90 MG TABLET PO SCH (10:34)
[2021-10-08] MEDS: SACUBITRIL/VALSARTAN 24 MG-26 MG TABLET PO SCH (10:34)
[2021-10-08] MEDS: LABETALOL HCL 100 MG TABLET (FP) PO SCH ×2 (10:35→21:25)
[2021-10-08] MEDS: CEFTRIAXONE 1 GM in DEXTROSE 5%-WATER - 50 ML IVPB SCH (10:35)
[2021-10-08] MEDS: SODIUM ZIRCONIUM CYCLOSILICATE (LOKELMA) 5 GM PACKET PO SCH (10:35)
[2021-10-08] MEDS: ASPIRIN COATED 81 MG TABLET.EC PO SCH (10:35)
[2021-10-08] MEDS: APIXABAN 5 MG TABLET PO SCH ×2 (10:36→21:25)
[2021-10-08] MEDS: MINERAL OIL/PET HY-PHL TOPICAL OINTMENT 454 GM JAR TP SCH ×2 (12:44→21:26)
[2021-10-08] MEDS: ATORVASTATIN CA 20 MG TABLET (FP) PO SCH (21:25)
[2021-10-08] MEDS: EZETIMIBE 10 MG TABLET (FP) PO SCH (21:25)
[2021-10-08] MEDS: ACETAMINOPHEN 325 MG TABLET (FP) PO PRN (21:27)
[2021-10-09] MEDS: INSULIN (LEVEMIR) 100 UNITS/ML UNITS SQ SCH ×2 (06:05→21:05)
[2021-10-09] MEDS: LEVOTHYROXINE NA 125 MCG TABLET (FP) PO SCH (06:05)
[2021-10-09] MEDS: FUROSEMIDE 40 MG/4 ML INJECTABLE VIAL IVPUSH SCH ×2 (06:05→14:23)
[2021-10-09] MEDS: INSULIN SLIDING SCALE (NOVOLOG) 1 VIAL SQ SCH ×4 (06:10→21:06)
[2021-10-09] MEDS: ALBUTEROL SO4 2.5/IPRATROPIUM 0.5 INH SOL 3 ML VIAL.NEB. NEB SCH ×4 (08:05→19:49)
[2021-10-09 08:13] LABS: HEMATOCRIT 23.9 % (32.4-45.2); HEMOGLOBIN 8.1 GM/dL (10.7-15.3); MCH 30.9 pg (25.7-33.7); MCHC 33.8 g/dl (32.0-36.0); MEAN CELL VOLUME 91.5 fl (80-96); MEAN PLT VOLUME 9.5 fl (7.5-11.1); PLATELET COUNT 192 10^3/uL (134-434); RBC 2.61 M/mm3 (3.60-5.2); RDW 13.5 % (11.6-15.6); WHITE BLOOD COUNT 8.1 K/mm3 (4.0-10.0)
[2021-10-09 09:06] LABS: ALBUMIN 2.4 g/dl (3.4-5.0); BILIRUBIN,TOTAL 0.3 mg/dL (0.2-1); BLOOD UREA NITROGEN 81.9 mg/dL (7-18); CALCIUM 7.9 mg/dL (8.5-10.1); CREATININE 3.9 mg/dL (0.55-1.3); PHOSPHOROUS 5.3 mg/dL (2.5-4.9); TOT PROT 6.9 g/dl (6.4-8.2)
[2021-10-09] MEDS: MINERAL OIL/PET HY-PHL TOPICAL OINTMENT 454 GM JAR TP SCH ×2 (09:24→21:20)
[2021-10-09] MEDS: SODIUM ZIRCONIUM CYCLOSILICATE (LOKELMA) 5 GM PACKET PO SCH (09:25)
[2021-10-09] MEDS: ASPIRIN COATED 81 MG TABLET.EC PO SCH (09:25)
[2021-10-09] MEDS: APIXABAN 5 MG TABLET PO SCH ×2 (09:25→21:05)
[2021-10-09] MEDS: NIFEdipine E.R. 90 MG TABLET PO SCH (09:25)
[2021-10-09] MEDS: SACUBITRIL/VALSARTAN 24 MG-26 MG TABLET PO SCH (09:25)
[2021-10-09] MEDS: LABETALOL HCL 100 MG TABLET (FP) PO SCH ×2 (09:25→21:05)
[2021-10-09] MEDS: CEFTRIAXONE 1 GM in DEXTROSE 5%-WATER - 50 ML IVPB SCH (09:25)
[2021-10-09] MEDS: ACETAMINOPHEN 325 MG TABLET (FP) PO PRN (21:04)
[2021-10-09] MEDS: EZETIMIBE 10 MG TABLET (FP) PO SCH (21:05)
[2021-10-09] MEDS: ATORVASTATIN CA 20 MG TABLET (FP) PO SCH (21:05)
[2021-10-09 21:40] VITALS: BMI 57.6
[2021-10-10] MEDS: LEVOTHYROXINE NA 125 MCG TABLET (FP) PO SCH (07:00)
[2021-10-10] MEDS: INSULIN SLIDING SCALE (NOVOLOG) 1 VIAL SQ SCH ×4 (07:00→21:34)
[2021-10-10] MEDS: FUROSEMIDE 40 MG/4 ML INJECTABLE VIAL IVPUSH SCH ×2 (07:00→13:44)
[2021-10-10] MEDS: INSULIN (LEVEMIR) 100 UNITS/ML UNITS SQ SCH ×2 (07:00→21:34)
[2021-10-10] MEDS: ALBUTEROL SO4 2.5/IPRATROPIUM 0.5 INH SOL 3 ML VIAL.NEB. NEB SCH ×4 (07:42→20:03)
[2021-10-10] MEDS: SACUBITRIL/VALSARTAN 24 MG-26 MG TABLET PO SCH (10:01)
[2021-10-10] MEDS: NIFEdipine E.R. 90 MG TABLET PO SCH (10:01)
[2021-10-10] MEDS: SODIUM ZIRCONIUM CYCLOSILICATE (LOKELMA) 5 GM PACKET PO SCH (10:01)
[2021-10-10] MEDS: APIXABAN 5 MG TABLET PO SCH ×2 (10:01→21:28)
[2021-10-10] MEDS: ASPIRIN COATED 81 MG TABLET.EC PO SCH (10:01)
[2021-10-10] MEDS: LABETALOL HCL 100 MG TABLET (FP) PO SCH ×2 (10:01→21:28)
[2021-10-10] MEDS: MINERAL OIL/PET HY-PHL TOPICAL OINTMENT 454 GM JAR TP SCH ×2 (10:03→21:29)
[2021-10-10 11:11] LABS: HEMATOCRIT 25.9 % (32.4-45.2); HEMOGLOBIN 8.3 GM/dL (10.7-15.3); MCH 29.2 pg (25.7-33.7); MCHC 32.1 g/dl (32.0-36.0); MEAN PLT VOLUME 9.6 fl (7.5-11.1); PLATELET COUNT 210 10^3/uL (134-434); RBC 2.84 M/mm3 (3.60-5.2); RDW 13.6 % (11.6-15.6); WHITE BLOOD COUNT 7.9 K/mm3 (4.0-10.0)
[2021-10-10] MEDS: ACETAMINOPHEN 325 MG TABLET (FP) PO PRN ×2 (11:27→21:28)
[2021-10-10 11:33] LABS: CALCIUM 7.8 mg/dL (8.5-10.1)
[2021-10-10 11:34] LABS: BLOOD UREA NITROGEN 73.4 mg/dL (7-18); MAGNESIUM 1.8 mg/dL (1.8-2.4)
[2021-10-10 11:39] LABS: TOT PROT 7.3 g/dl (6.4-8.2)
[2021-10-10 11:41] LABS: ALBUMIN 2.5 g/dl (3.4-5.0); BILIRUBIN,TOTAL 0.4 mg/dL (0.2-1); CREATININE 3.5 mg/dL (0.55-1.3); PHOSPHOROUS 4.3 mg/dL (2.5-4.9)
[2021-10-10] MEDS: EZETIMIBE 10 MG TABLET (FP) PO SCH (21:28)
[2021-10-10] MEDS: ATORVASTATIN CA 20 MG TABLET (FP) PO SCH (21:28)
[2021-10-10] MEDS: DOXEPIN HCL 10 MG CAPSULE PO PRN (21:32)
[2021-10-11] MEDS: LEVOTHYROXINE NA 125 MCG TABLET (FP) PO SCH (06:15)
[2021-10-11] MEDS: FUROSEMIDE 40 MG/4 ML INJECTABLE VIAL IVPUSH SCH (06:15)
[2021-10-11] MEDS: INSULIN SLIDING SCALE (NOVOLOG) 1 VIAL SQ SCH ×4 (06:19→21:30)
[2021-10-11] MEDS: INSULIN (LEVEMIR) 100 UNITS/ML UNITS SQ SCH ×2 (06:20→21:29)
[2021-10-11 09:05] LABS: HEMOGLOBIN 7.9 GM/dL (10.7-15.3); MCH 29.6 pg (25.7-33.7); MCHC 32.7 g/dl (32.0-36.0); MEAN CELL VOLUME 90.5 fl (80-96); MEAN PLT VOLUME 9.6 fl (7.5-11.1); PLATELET COUNT 214 10^3/uL (134-434); RBC 2.66 M/mm3 (3.60-5.2); RDW 13.6 % (11.6-15.6)
[2021-10-11] MEDS: ALBUTEROL SO4 2.5/IPRATROPIUM 0.5 INH SOL 3 ML VIAL.NEB. NEB SCH ×4 (09:30→20:05)
[2021-10-11 09:36] LABS: ALBUMIN 2.5 g/dl (3.4-5.0); BLOOD UREA NITROGEN 69.7 mg/dL (7-18); MAGNESIUM 1.9 mg/dL (1.8-2.4)
[2021-10-11 09:38] LABS: PHOSPHOROUS 5.1 mg/dL (2.5-4.9)
[2021-10-11 09:39] LABS: CREATININE 3.4 mg/dL (0.55-1.3)
[2021-10-11 09:40] LABS: BILIRUBIN,TOTAL 0.5 mg/dL (0.2-1); TOT PROT 7.1 g/dl (6.4-8.2)
[2021-10-11] MEDS: APIXABAN 5 MG TABLET PO SCH ×2 (10:04→21:27)
[2021-10-11] MEDS: ASPIRIN COATED 81 MG TABLET.EC PO SCH (10:04)
[2021-10-11] MEDS: LABETALOL HCL 100 MG TABLET (FP) PO SCH (10:04)
[2021-10-11] MEDS: MINERAL OIL/PET HY-PHL TOPICAL OINTMENT 454 GM JAR TP SCH ×2 (10:04→21:27)
[2021-10-11] MEDS: NIFEdipine E.R. 90 MG TABLET PO SCH (10:04)
[2021-10-11] MEDS: SACUBITRIL/VALSARTAN 24 MG-26 MG TABLET PO SCH (10:04)
[2021-10-11] MEDS: SODIUM ZIRCONIUM CYCLOSILICATE (LOKELMA) 5 GM PACKET PO SCH (10:33)
[2021-10-11] MEDS ORDERED: FUROSEMIDE 40 MG/4 ML INJECTABLE VIAL IVPUSH SCH (10:51)
[2021-10-11] MEDS: FUROSEMIDE 40 MG/4 ML INJECTABLE VIAL IVPB SCH (15:12)
[2021-10-11] MEDS: ACETAMINOPHEN 325 MG TABLET (FP) PO PRN (19:55)
[2021-10-11] MEDS: ATORVASTATIN CA 20 MG TABLET (FP) PO SCH (21:27)
[2021-10-11] MEDS: DOXEPIN HCL 10 MG CAPSULE PO PRN (21:27)
[2021-10-11] MEDS: EZETIMIBE 10 MG TABLET (FP) PO SCH (21:27)
[2021-10-12] MEDS: INSULIN (LEVEMIR) 100 UNITS/ML UNITS SQ SCH ×2 (06:16→21:47)
[2021-10-12] MEDS: INSULIN SLIDING SCALE (NOVOLOG) 1 VIAL SQ SCH ×4 (06:16→21:47)
[2021-10-12] MEDS: LEVOTHYROXINE NA 125 MCG TABLET (FP) PO SCH (06:17)
[2021-10-12] MEDS: FUROSEMIDE 40 MG/4 ML INJECTABLE VIAL IVPB SCH ×2 (06:17→13:44)
[2021-10-12] MEDS: ALBUTEROL SO4 2.5/IPRATROPIUM 0.5 INH SOL 3 ML VIAL.NEB. NEB SCH ×4 (08:31→20:14)
[2021-10-12] MEDS: SODIUM ZIRCONIUM CYCLOSILICATE (LOKELMA) 5 GM PACKET PO SCH (09:43)
[2021-10-12] MEDS: APIXABAN 5 MG TABLET PO SCH ×2 (09:44→21:46)
[2021-10-12] MEDS: NIFEdipine E.R. 90 MG TABLET PO SCH (09:44)
[2021-10-12] MEDS: MINERAL OIL/PET HY-PHL TOPICAL OINTMENT 454 GM JAR TP SCH ×2 (09:44→21:47)
[2021-10-12] MEDS: SACUBITRIL/VALSARTAN 24 MG-26 MG TABLET PO SCH (09:44)
[2021-10-12] MEDS: ASPIRIN COATED 81 MG TABLET.EC PO SCH (09:44)
[2021-10-12] MEDS: ATORVASTATIN CA 20 MG TABLET (FP) PO SCH (21:46)
[2021-10-12] MEDS: ACETAMINOPHEN 325 MG TABLET (FP) PO PRN (21:46)
[2021-10-12] MEDS: EZETIMIBE 10 MG TABLET (FP) PO SCH (21:46)
[2021-10-12] MEDS: DOXEPIN HCL 10 MG CAPSULE PO PRN (21:47)
[2021-10-13] MEDS: FUROSEMIDE 40 MG/4 ML INJECTABLE VIAL IVPB SCH (05:58)
[2021-10-13] MEDS: LEVOTHYROXINE NA 125 MCG TABLET (FP) PO SCH (06:08)
[2021-10-13] MEDS: INSULIN (LEVEMIR) 100 UNITS/ML UNITS SQ SCH ×2 (06:08→21:10)
[2021-10-13] MEDS: INSULIN SLIDING SCALE (NOVOLOG) 1 VIAL SQ SCH ×4 (06:08→21:11)
[2021-10-13 07:48] LABS: BASO % 1.3 % (0-2.0); EOS % 8.1 % (0-4.5); HEMATOCRIT 23.3 % (32.4-45.2); HEMOGLOBIN 7.6 GM/dL (10.7-15.3); LYMPH % 30.8 % (8-40); MCH 29.8 pg (25.7-33.7); MCHC 32.8 g/dl (32.0-36.0); MEAN CELL VOLUME 90.7 fl (80-96); MEAN PLT VOLUME 8.8 fl (7.5-11.1); MONO % 9.9 % (3.8-10.2); NEUT % 49.9 % (42.8-82.8); PLATELET COUNT 221 10^3/uL (134-434); RBC 2.57 M/mm3 (3.60-5.2); RDW 13.5 % (11.6-15.6); WHITE BLOOD COUNT 6.9 K/mm3 (4.0-10.0)
[2021-10-13] MEDS: ALBUTEROL SO4 2.5/IPRATROPIUM 0.5 INH SOL 3 ML VIAL.NEB. NEB SCH ×4 (07:52→20:05)
[2021-10-13 08:17] LABS: ALBUMIN 2.5 g/dl (3.4-5.0); BLOOD UREA NITROGEN 62.3 mg/dL (7-18); CALCIUM 7.9 mg/dL (8.5-10.1); MAGNESIUM 1.8 mg/dL (1.8-2.4)
[2021-10-13 08:20] LABS: CREATININE 3.2 mg/dL (0.55-1.3)
[2021-10-13 08:22] LABS: TOT PROT 7.2 g/dl (6.4-8.2)
[2021-10-13 08:23] LABS: BILIRUBIN,TOTAL 0.4 mg/dL (0.2-1)
[2021-10-13] MEDS: SACUBITRIL/VALSARTAN 24 MG-26 MG TABLET PO SCH (09:39)
[2021-10-13] MEDS: SODIUM ZIRCONIUM CYCLOSILICATE (LOKELMA) 5 GM PACKET PO SCH (09:39)
[2021-10-13] MEDS: MINERAL OIL/PET HY-PHL TOPICAL OINTMENT 454 GM JAR TP SCH ×2 (09:40→21:07)
[2021-10-13] MEDS: APIXABAN 5 MG TABLET PO SCH ×2 (09:40→21:06)
[2021-10-13] MEDS: NIFEdipine E.R. 90 MG TABLET PO SCH (09:40)
[2021-10-13] MEDS: ASPIRIN COATED 81 MG TABLET.EC PO SCH (09:40)
[2021-10-13] MEDS ORDERED: MAGNESIUM OXIDE 400 MG TABLET (FP) PO ONE (12:20)
[2021-10-13] MEDS: ACETAMINOPHEN 325 MG TABLET (FP) PO PRN (20:49)
[2021-10-13] MEDS: DOXEPIN HCL 10 MG CAPSULE PO PRN (20:54)
[2021-10-13] MEDS: ATORVASTATIN CA 20 MG TABLET (FP) PO SCH (21:06)
[2021-10-13] MEDS: TORSEMIDE 20 MG TABLET (FP) PO SCH (21:06)
[2021-10-13] MEDS: EZETIMIBE 10 MG TABLET (FP) PO SCH (21:06)
[2021-10-14] MEDS: LEVOTHYROXINE NA 125 MCG TABLET (FP) PO SCH (06:02)
[2021-10-14] MEDS: INSULIN SLIDING SCALE (NOVOLOG) 1 VIAL SQ SCH ×4 (06:03→21:25)
[2021-10-14] MEDS: INSULIN (LEVEMIR) 100 UNITS/ML UNITS SQ SCH ×2 (06:03→21:23)
[2021-10-14] MEDS: ALBUTEROL SO4 2.5/IPRATROPIUM 0.5 INH SOL 3 ML VIAL.NEB. NEB SCH ×4 (08:10→21:04)
[2021-10-14] MEDS: SODIUM ZIRCONIUM CYCLOSILICATE (LOKELMA) 5 GM PACKET PO SCH (11:08)
[2021-10-14] MEDS: SACUBITRIL/VALSARTAN 24 MG-26 MG TABLET PO SCH (11:08)
[2021-10-14] MEDS: TORSEMIDE 20 MG TABLET (FP) PO SCH ×2 (11:08→21:17)
[2021-10-14] MEDS: APIXABAN 5 MG TABLET PO SCH ×2 (11:08→21:17)
[2021-10-14] MEDS: MINERAL OIL/PET HY-PHL TOPICAL OINTMENT 454 GM JAR TP SCH ×2 (11:08→21:25)
[2021-10-14] MEDS: ASPIRIN COATED 81 MG TABLET.EC PO SCH (11:08)
[2021-10-14] MEDS: NIFEdipine E.R. 90 MG TABLET PO SCH (11:08)
[2021-10-14 11:53] LABS: BASO % 1.4 % (0-2.0); EOS % 8.4 % (0-4.5); HEMATOCRIT 26.1 % (32.4-45.2); HEMOGLOBIN 8.5 GM/dL (10.7-15.3); LYMPH % 26.7 % (8-40); MCH 29.3 pg (25.7-33.7); MCHC 32.4 g/dl (32.0-36.0); MEAN CELL VOLUME 90.2 fl (80-96); MONO % 8.5 % (3.8-10.2); PLATELET COUNT 288 10^3/uL (134-434); RDW 13.8 % (11.6-15.6)
[2021-10-14 12:14] LABS: CALCIUM 8.6 mg/dL (8.5-10.1)
[2021-10-14 12:15] LABS: ALBUMIN 2.8 g/dl (3.4-5.0); BLOOD UREA NITROGEN 62.4 mg/dL (7-18); MAGNESIUM 2.1 mg/dL (1.8-2.4)
[2021-10-14 12:18] LABS: CREATININE 3.3 mg/dL (0.55-1.3)
[2021-10-14 12:19] LABS: BILIRUBIN,TOTAL 0.3 mg/dL (0.2-1)
[2021-10-14] MEDS: ATORVASTATIN CA 20 MG TABLET (FP) PO SCH (21:17)
[2021-10-14] MEDS: EZETIMIBE 10 MG TABLET (FP) PO SCH (21:18)
[2021-10-14] MEDS: ACETAMINOPHEN 325 MG TABLET (FP) PO PRN (21:22)
[2021-10-14] MEDS: DOXEPIN HCL 10 MG CAPSULE PO PRN (21:54)
[2021-10-15] MEDS: LEVOTHYROXINE NA 125 MCG TABLET (FP) PO SCH (06:18)
[2021-10-15] MEDS: INSULIN SLIDING SCALE (NOVOLOG) 1 VIAL SQ SCH ×4 (06:47→22:20)
[2021-10-15] MEDS: INSULIN (LEVEMIR) 100 UNITS/ML UNITS SQ SCH ×2 (06:47→22:19)
[2021-10-15] MEDS: ALBUTEROL SO4 2.5/IPRATROPIUM 0.5 INH SOL 3 ML VIAL.NEB. NEB SCH ×4 (08:35→20:54)
[2021-10-15] MEDS: TORSEMIDE 20 MG TABLET (FP) PO SCH ×2 (09:17→22:18)
[2021-10-15] MEDS: DOXEPIN HCL 10 MG CAPSULE PO PRN (09:17)
[2021-10-15] MEDS: SODIUM ZIRCONIUM CYCLOSILICATE (LOKELMA) 5 GM PACKET PO SCH (09:17)
[2021-10-15] MEDS: ASPIRIN COATED 81 MG TABLET.EC PO SCH (09:17)
[2021-10-15] MEDS: SACUBITRIL/VALSARTAN 24 MG-26 MG TABLET PO SCH (09:17)
[2021-10-15] MEDS: APIXABAN 5 MG TABLET PO SCH ×2 (09:17→22:18)
[2021-10-15] MEDS: NIFEdipine E.R. 90 MG TABLET PO SCH (09:17)
[2021-10-15] MEDS: MINERAL OIL/PET HY-PHL TOPICAL OINTMENT 454 GM JAR TP SCH ×2 (09:20→22:17)
[2021-10-15] MEDS ORDERED: INSULIN (NOVOLOG) ASPART 100 UNITS/ML 10ML VIAL ONE (11:36)
[2021-10-15 12:42] LABS: BASO % 1.1 % (0-2.0); EOS % 8.4 % (0-4.5); HEMATOCRIT 22.5 % (32.4-45.2); HEMOGLOBIN 7.6 GM/dL (10.7-15.3); LYMPH % 32.7 % (8-40); MCH 30.5 pg (25.7-33.7); MCHC 33.6 g/dl (32.0-36.0); MEAN CELL VOLUME 90.7 fl (80-96); MEAN PLT VOLUME 8.3 fl (7.5-11.1); MONO % 9.5 % (3.8-10.2); NEUT % 48.3 % (42.8-82.8); PLATELET COUNT 258 10^3/uL (134-434); RBC 2.48 M/mm3 (3.60-5.2); RDW 13.8 % (11.6-15.6); WHITE BLOOD COUNT 6.1 K/mm3 (4.0-10.0)
[2021-10-15 12:53] LABS: CALCIUM 8.2 mg/dL (8.5-10.1)
[2021-10-15 12:54] LABS: ALBUMIN 2.6 g/dl (3.4-5.0); BLOOD UREA NITROGEN 66.5 mg/dL (7-18)
[2021-10-15 12:57] LABS: CREATININE 3.6 mg/dL (0.55-1.3)
[2021-10-15 12:58] LABS: BILIRUBIN,TOTAL 0.3 mg/dL (0.2-1); TOT PROT 7.3 g/dl (6.4-8.2)
[2021-10-15] MEDS: ATORVASTATIN CA 20 MG TABLET (FP) PO SCH (22:19)
[2021-10-15] MEDS: ACETAMINOPHEN 325 MG TABLET (FP) PO PRN (22:21)
[2021-10-15] MEDS: EZETIMIBE 10 MG TABLET (FP) PO SCH (22:21)
[2021-10-16] MEDS: INSULIN (LEVEMIR) 100 UNITS/ML UNITS SQ SCH ×2 (06:26→21:09)
[2021-10-16] MEDS: INSULIN SLIDING SCALE (NOVOLOG) 1 VIAL SQ SCH ×4 (06:27→21:09)
[2021-10-16] MEDS: LEVOTHYROXINE NA 125 MCG TABLET (FP) PO SCH (06:27)
[2021-10-16] MEDS: ALBUTEROL SO4 2.5/IPRATROPIUM 0.5 INH SOL 3 ML VIAL.NEB. NEB SCH ×3 (07:25→15:39)
[2021-10-16] MEDS: ASPIRIN COATED 81 MG TABLET.EC PO SCH (09:33)
[2021-10-16] MEDS: NIFEdipine E.R. 90 MG TABLET PO SCH (09:33)
[2021-10-16] MEDS: SACUBITRIL/VALSARTAN 24 MG-26 MG TABLET PO SCH (09:33)
[2021-10-16] MEDS: MINERAL OIL/PET HY-PHL TOPICAL OINTMENT 454 GM JAR TP SCH ×2 (09:33→21:06)
[2021-10-16] MEDS: APIXABAN 5 MG TABLET PO SCH ×2 (09:33→21:06)
[2021-10-16] MEDS: TORSEMIDE 20 MG TABLET (FP) PO SCH ×2 (09:33→21:05)
[2021-10-16] MEDS: SODIUM ZIRCONIUM CYCLOSILICATE (LOKELMA) 5 GM PACKET PO SCH (09:33)
[2021-10-16] MEDS: ATORVASTATIN CA 20 MG TABLET (FP) PO SCH (21:05)
[2021-10-16] MEDS: EZETIMIBE 10 MG TABLET (FP) PO SCH (21:06)
[2021-10-16] MEDS: ACETAMINOPHEN 325 MG TABLET (FP) PO PRN (21:09)
[2021-10-16] MEDS: DOXEPIN HCL 10 MG CAPSULE PO PRN (21:10)
[2021-10-16] MEDS ORDERED: INSULIN (LEVEMIR) 100 UNITS/ML UNITS SQ ONE (21:12)
[2021-10-17] MEDS: INSULIN SLIDING SCALE (NOVOLOG) 1 VIAL SQ SCH ×3 (06:15→17:50)
[2021-10-17] MEDS: LEVOTHYROXINE NA 125 MCG TABLET (FP) PO SCH (06:15)
[2021-10-17] MEDS: INSULIN (LEVEMIR) 100 UNITS/ML UNITS SQ SCH (06:15)
[2021-10-17 07:34] LABS: CALCIUM 8.2 mg/dL (8.5-10.1)
[2021-10-17 07:35] LABS: BLOOD UREA NITROGEN 73.2 mg/dL (7-18)
[2021-10-17 07:38] LABS: CREATININE 4.1 mg/dL (0.55-1.3)
[2021-10-17] MEDS: SODIUM ZIRCONIUM CYCLOSILICATE (LOKELMA) 5 GM PACKET PO SCH (09:58)
[2021-10-17] MEDS: APIXABAN 5 MG TABLET PO SCH (09:58)
[2021-10-17] MEDS: NIFEdipine E.R. 90 MG TABLET PO SCH (09:58)
[2021-10-17] MEDS: ASPIRIN COATED 81 MG TABLET.EC PO SCH (09:58)
[2021-10-17] MEDS: TORSEMIDE 20 MG TABLET (FP) PO SCH (09:58)
[2021-10-17] MEDS: SACUBITRIL/VALSARTAN 24 MG-26 MG TABLET PO SCH (09:58)
[2021-10-17] MEDS: MINERAL OIL/PET HY-PHL TOPICAL OINTMENT 454 GM JAR TP SCH (09:59)
[2021-10-17 16:19] VITALS: BP 157/84; PULSE 78; RESP 22; TEMP 98.1
== END 2021-10-17 18:00 | DRG 194 ==
LOC: JER 10:33 → JERBED 12:58 → JICU 10-05 13:18 → J4W 10-07 14:54
PROVIDERS: ADMIT Internal Medicine; ATTEND Nurse Practitioner Acute Care
PROC: 30233N1 Transfusion of Nonautologous Red Blood Cells into Peripheral Vein, Percutaneous Approach (ICD-10-PCS; principal; 2021-10-04)
DX: I13.0 Hypertensive heart and chronic kidney disease with heart failure and stage 1 through stage 4 chronic kidney disease, or unspecified chronic kidney disease (principal); J44.9 Chronic obstructive pulmonary disease, unspecified; J18.9 Pneumonia, unspecified organism; I48.0 Paroxysmal atrial fibrillation; I24.8 Other forms of acute ischemic heart disease; E78.5 Hyperlipidemia, unspecified; E03.9 Hypothyroidism, unspecified; I50.33 Acute on chronic diastolic (congestive) heart failure; N18.4 Chronic kidney disease, stage 4 (severe); E11.22 Type 2 diabetes mellitus with diabetic chronic kidney disease; G47.33 Obstructive sleep apnea (adult) (pediatric); J96.21 Acute and chronic respiratory failure with hypoxia; J96.22 Acute and chronic respiratory failure with hypercapnia; E11.622 Type 2 diabetes mellitus with other skin ulcer; L97.818 Non-pressure chronic ulcer of other part of right lower leg with other specified severity; M54.50 Low back pain, unspecified; J81.0 Acute pulmonary edema; I31.3 Pericardial effusion (noninflammatory); E66.01 Morbid (severe) obesity due to excess calories; Z68.43 Body mass index [BMI] 50.0-59.9, adult; D64.9 Anemia, unspecified; N83.209 Unspecified ovarian cyst, unspecified side; E87.5 Hyperkalemia; N39.0 Urinary tract infection, site not specified; Z98.84 Bariatric surgery status; Z99.81 Dependence on supplemental oxygen
CPT/HCPCS: 0241U-QW; 36415; 36430; 36600; 71045-TC-FY; 80048; 80053; 81003; 82607; 82728; 82746; 82803; 82962; 83036; 83540; 83550; 83735; 83880; 84100; 84443; 84484; 85025; 85027; 85610; 86850; 86900; 86901; 86922; 87040; 87086; 87186; 93005; 93010; 93970-TC; 94640; 94660; 97116-GP; 97162-GP; 99285-25; C9803-CS; P9058; U0003; U0005

== ENCOUNTER 2021-10-28 11:30 | Inpatient (IN) | payer OTHER ==
[2021-10-28 13:32] LABS: BASO % 1.1 % (0-2.0); CHLORIDE 102 mmol/L (98-107); EOS % 5.2 % (0-4.5); LYMPH % 26.3 % (8-40); MCH 30.2 pg (25.7-33.7); MCHC 32.8 g/dl (32.0-36.0); MEAN CELL VOLUME 91.9 fl (80-96); MEAN PLT VOLUME 9.1 fl (7.5-11.1); MONO % 11.1 % (3.8-10.2); NEUT % 56.3 % (42.8-82.8); PLATELET COUNT 301 10^3/uL (134-434); RBC 1.85 M/mm3 (3.60-5.2); RDW 14.8 % (11.6-15.6); SODIUM 138 mmol/L (136-145); WHITE BLOOD COUNT 8.9 K/mm3 (4.0-10.0)
[2021-10-28 13:34] LABS: ALBUMIN 2.9 g/dl (3.4-5.0); ANION GAP 12 MMOL/L (8-16); CALCIUM 7.7 mg/dL (8.5-10.1); CO2 24 mmol/L (21-32); GLUCOSE,RANDOM 147 mg/dL (74-106)
[2021-10-28 13:37] LABS: CREATININE 6.3 mg/dL (0.55-1.3); SGOT/AST 110 U/L (15-37); SGPT/ALT 113 U/L (13-61)
[2021-10-28 13:39] LABS: BILIRUBIN,TOTAL 0.2 mg/dL (0.2-1); TOT PROT 7.5 g/dl (6.4-8.2)
[2021-10-28 13:42] LABS: HEMOGLOBIN 5.6 GM/dL (10.7-15.3)
[2021-10-28 13:50] LABS: ALK PHOS 213 U/L (45-117); BLOOD UREA NITROGEN 111.6 mg/dL (7-18)
[2021-10-28 14:15] LABS: EPI CELLS >36 /uL (0-25.1); HYALINE CASTS 3 /uL (0-3.1); URINE APPEARANCE CLOUDY; URINE BACTERIA 4 /uL (0-1359); URINE BILIRUBIN NEGATIVE (NEGATIVE); URINE COLOR YELLOW; URINE GLUCOSE (UA) NEGATIVE (NEGATIVE); URINE KETONE NEGATIVE (NEGATIVE); URINE LEUK ESTERASE 1+ (NEGATIVE); URINE NITRITE NEGATIVE (NEGATIVE); URINE PROTEIN 1+ (NEGATIVE); URINE RBC 73 /uL (0-23.9); URINE UROBILINOGEN 0.2 mg/dL (0.2-1.0); URINE WBC 157 /uL (0-25.8)
[2021-10-28] MEDS ORDERED: ALBUTEROL SO4 HFA INHALER IH PRN (21:48)
[2021-10-28] MEDS: INSULIN SLIDING SCALE (NOVOLOG) 1 VIAL SQ SCH (22:20)
[2021-10-28 23:11] VITALS: BMI 57.9
[2021-10-29] MEDS: INSULIN SLIDING SCALE (NOVOLOG) 1 VIAL SQ SCH ×4 (06:30→21:12)
[2021-10-29] MEDS: LEVOTHYROXINE NA 125 MCG TABLET (FP) PO SCH (06:54)
[2021-10-29 09:38] LABS: BASO % 0.9 % (0-2.0); EOS % 3.4 % (0-4.5); HEMATOCRIT 23.1 % (32.4-45.2); HEMOGLOBIN 7.5 GM/dL (10.7-15.3); MCH 29.5 pg (25.7-33.7); MCHC 32.5 g/dl (32.0-36.0); MEAN CELL VOLUME 90.7 fl (80-96); MEAN PLT VOLUME 8.7 fl (7.5-11.1); MONO % 9.7 % (3.8-10.2); PLATELET COUNT 243 10^3/uL (134-434); RBC 2.54 M/mm3 (3.60-5.2); RDW 14.7 % (11.6-15.6); WHITE BLOOD COUNT 6.4 K/mm3 (4.0-10.0)
[2021-10-29 09:52] LABS: CHLORIDE 102 mmol/L (98-107); SODIUM 135 mmol/L (136-145)
[2021-10-29 09:54] LABS: CALCIUM 7.2 mg/dL (8.5-10.1)
[2021-10-29 09:55] LABS: ALBUMIN 2.8 g/dl (3.4-5.0); ANION GAP 8 MMOL/L (8-16); CO2 25 mmol/L (21-32); GLUCOSE,RANDOM 57 mg/dL (74-106)
[2021-10-29 09:58] LABS: SGOT/AST 131 U/L (15-37); SGPT/ALT 118 U/L (13-61)
[2021-10-29 10:00] LABS: BILIRUBIN,TOTAL 0.3 mg/dL (0.2-1); TOT PROT 7.5 g/dl (6.4-8.2)
[2021-10-29 10:01] LABS: ALK PHOS 235 U/L (45-117)
[2021-10-29 10:22] LABS: BLOOD UREA NITROGEN 113.6 mg/dL (7-18)
[2021-10-29] MEDS: ALBUTEROL SO4 2.5/IPRATROPIUM 0.5 INH SOL 3 ML VIAL.NEB. NEB SCH (20:00)
[2021-10-29] MEDS: EZETIMIBE 10 MG TABLET (FP) PO SCH (21:13)
[2021-10-29] MEDS: GABAPENTIN 300 MG CAPSULE PO SCH (21:13)
[2021-10-29] MEDS: ATORVASTATIN CA 20 MG TABLET (FP) PO SCH (21:13)
[2021-10-30] MEDS: TORSEMIDE 20 MG TABLET (FP) PO SCH ×2 (06:42→14:35)
[2021-10-30] MEDS: LEVOTHYROXINE NA 125 MCG TABLET (FP) PO SCH (06:43)
[2021-10-30] MEDS: GABAPENTIN 300 MG CAPSULE PO SCH ×3 (06:43→21:27)
[2021-10-30] MEDS: INSULIN SLIDING SCALE (NOVOLOG) 1 VIAL SQ SCH ×4 (06:44→21:29)
[2021-10-30] MEDS: ALBUTEROL SO4 2.5/IPRATROPIUM 0.5 INH SOL 3 ML VIAL.NEB. NEB SCH ×4 (08:30→20:30)
[2021-10-30 13:22] LABS: BASO % 0.7 % (0-2.0); EOS % 3.4 % (0-4.5); HEMATOCRIT 22.7 % (32.4-45.2); HEMOGLOBIN 7.6 GM/dL (10.7-15.3); LYMPH % 23.2 % (8-40); MCH 30.4 pg (25.7-33.7); MCHC 33.6 g/dl (32.0-36.0); MEAN CELL VOLUME 90.5 fl (80-96); MEAN PLT VOLUME 8.8 fl (7.5-11.1); MONO % 9.6 % (3.8-10.2); NEUT % 63.1 % (42.8-82.8); PLATELET COUNT 233 10^3/uL (134-434); RBC 2.51 M/mm3 (3.60-5.2); RDW 14.7 % (11.6-15.6)
[2021-10-30 13:45] LABS: SODIUM 143 mmol/L (136-145)
[2021-10-30 13:50] LABS: CALCIUM 7.7 mg/dL (8.5-10.1); CO2 26 mmol/L (21-32); GLUCOSE,RANDOM 115 mg/dL (74-106)
[2021-10-30 13:51] LABS: ALBUMIN 2.9 g/dl (3.4-5.0); MAGNESIUM 2.5 mg/dL (1.8-2.4)
[2021-10-30 13:53] LABS: SGPT/ALT 93 U/L (13-61)
[2021-10-30 13:54] LABS: SGOT/AST 72 U/L (15-37)
[2021-10-30 13:55] LABS: BILIRUBIN,TOTAL 0.3 mg/dL (0.2-1); TOT PROT 7.7 g/dl (6.4-8.2)
[2021-10-30 13:56] LABS: ALK PHOS 230 U/L (45-117)
[2021-10-30 13:58] LABS: ANION GAP 8 MMOL/L (8-16); BLOOD UREA NITROGEN 107.7 mg/dL (7-18); CHLORIDE 108 mmol/L (98-107); CREATININE 5.4 mg/dL (0.55-1.3)
[2021-10-30] MEDS: FERROUS SO4 325 MG TABLET (FP) PO SCH (16:41)
[2021-10-30] MEDS: ATORVASTATIN CA 20 MG TABLET (FP) PO SCH (21:26)
[2021-10-30] MEDS: EZETIMIBE 10 MG TABLET (FP) PO SCH (21:27)
[2021-10-31] MEDS ORDERED: MELATONIN 5 MG TABLETS PO ONE (01:55)
[2021-10-31] MEDS: TORSEMIDE 20 MG TABLET (FP) PO SCH ×2 (07:00→13:04)
[2021-10-31] MEDS: INSULIN SLIDING SCALE (NOVOLOG) 1 VIAL SQ SCH ×4 (07:01→21:57)
[2021-10-31] MEDS: GABAPENTIN 300 MG CAPSULE PO SCH ×3 (07:01→21:49)
[2021-10-31] MEDS: LEVOTHYROXINE NA 125 MCG TABLET (FP) PO SCH (07:01)
[2021-10-31] MEDS: ALBUTEROL SO4 2.5/IPRATROPIUM 0.5 INH SOL 3 ML VIAL.NEB. NEB SCH ×3 (07:40→20:37)
[2021-10-31] MEDS: FERROUS SO4 325 MG TABLET (FP) PO SCH ×3 (08:38→18:25)
[2021-10-31] MEDS: POLYETHYLENE GLYCOL (HEALTHYLAX) 3350 17 GM PACKET PO SCH (09:38)
[2021-10-31] MEDS: APIXABAN 5 MG TABLET PO SCH ×2 (09:38→21:49)
[2021-10-31] MEDS: FOLIC ACID 1 MG TABLET (FP) PO SCH (09:38)
[2021-10-31 11:34] LABS: BASO % 0.9 % (0-2.0); EOS % 2.8 % (0-4.5); HEMATOCRIT 21.7 % (32.4-45.2); HEMOGLOBIN 7.2 GM/dL (10.7-15.3); LYMPH % 26.6 % (8-40); MCH 30.1 pg (25.7-33.7); MCHC 33.1 g/dl (32.0-36.0); MEAN CELL VOLUME 91.1 fl (80-96); MEAN PLT VOLUME 8.5 fl (7.5-11.1); MONO % 11.4 % (3.8-10.2); NEUT % 58.3 % (42.8-82.8); PLATELET COUNT 180 10^3/uL (134-434); RBC 2.39 M/mm3 (3.60-5.2); RDW 15.1 % (11.6-15.6); WHITE BLOOD COUNT 7.8 K/mm3 (4.0-10.0)
[2021-10-31 11:48] LABS: CALCIUM 7.8 mg/dL (8.5-10.1)
[2021-10-31 11:49] LABS: ALBUMIN 2.6 g/dl (3.4-5.0); BLOOD UREA NITROGEN 100.2 mg/dL (7-18)
[2021-10-31 11:50] LABS: MAGNESIUM 2.2 mg/dL (1.8-2.4)
[2021-10-31 11:52] LABS: CREATININE 4.6 mg/dL (0.55-1.3)
[2021-10-31 11:54] LABS: BILIRUBIN,TOTAL 0.4 mg/dL (0.2-1); TOT PROT 7.1 g/dl (6.4-8.2)
[2021-10-31] MEDS: NIFEdipine E.R. 90 MG TABLET PO SCH (14:35)
[2021-10-31] MEDS ORDERED: INSULIN (NOVOLOG) ASPART 100 UNITS/ML 10ML VIAL ONE (17:15)
[2021-10-31] MEDS: ATORVASTATIN CA 20 MG TABLET (FP) PO SCH (21:49)
[2021-10-31] MEDS: EZETIMIBE 10 MG TABLET (FP) PO SCH (21:50)
[2021-10-31 23:16] VITALS: RESP 20
[2021-11-01] MEDS: TORSEMIDE 20 MG TABLET (FP) PO SCH ×2 (06:19→13:56)
[2021-11-01] MEDS: GABAPENTIN 300 MG CAPSULE PO SCH ×3 (06:19→21:49)
[2021-11-01] MEDS: INSULIN SLIDING SCALE (NOVOLOG) 1 VIAL SQ SCH ×4 (06:24→21:55)
[2021-11-01] MEDS: LEVOTHYROXINE NA 125 MCG TABLET (FP) PO SCH (06:24)
[2021-11-01] MEDS: ALBUTEROL SO4 2.5/IPRATROPIUM 0.5 INH SOL 3 ML VIAL.NEB. NEB SCH ×4 (07:47→20:17)
[2021-11-01] MEDS: FOLIC ACID 1 MG TABLET (FP) PO SCH (09:20)
[2021-11-01] MEDS: APIXABAN 5 MG TABLET PO SCH ×2 (09:21→21:48)
[2021-11-01] MEDS: NIFEdipine E.R. 90 MG TABLET PO SCH (09:21)
[2021-11-01] MEDS: FERROUS SO4 325 MG TABLET (FP) PO SCH ×3 (09:21→18:00)
[2021-11-01] MEDS: POLYETHYLENE GLYCOL (HEALTHYLAX) 3350 17 GM PACKET PO SCH (09:21)
[2021-11-01 10:48] LABS: EOS % 4.5 % (0-4.5); HEMOGLOBIN 8.3 GM/dL (10.7-15.3); LYMPH % 30.1 % (8-40); MCH 29.1 pg (25.7-33.7); MCHC 31.8 g/dl (32.0-36.0); MEAN CELL VOLUME 91.6 fl (80-96); MEAN PLT VOLUME 9.1 fl (7.5-11.1); MONO % 8.9 % (3.8-10.2); NEUT % 55.5 % (42.8-82.8); PLATELET COUNT 228 10^3/uL (134-434); RBC 2.84 M/mm3 (3.60-5.2); RDW 15.4 % (11.6-15.6); WHITE BLOOD COUNT 8.5 K/mm3 (4.0-10.0)
[2021-11-01 11:20] LABS: ALBUMIN 2.8 g/dl (3.4-5.0); BLOOD UREA NITROGEN 89.8 mg/dL (7-18); MAGNESIUM 2.1 mg/dL (1.8-2.4)
[2021-11-01 11:22] LABS: CREATININE 4.3 mg/dL (0.55-1.3)
[2021-11-01 11:24] LABS: BILIRUBIN,TOTAL 0.3 mg/dL (0.2-1); TOT PROT 7.7 g/dl (6.4-8.2)
[2021-11-01] MEDS: EZETIMIBE 10 MG TABLET (FP) PO SCH (21:49)
[2021-11-01] MEDS: ATORVASTATIN CA 20 MG TABLET (FP) PO SCH (21:49)
[2021-11-02] MEDS: TORSEMIDE 20 MG TABLET (FP) PO SCH ×2 (05:58→14:24)
[2021-11-02] MEDS: GABAPENTIN 300 MG CAPSULE PO SCH ×3 (05:59→21:27)
[2021-11-02] MEDS: LEVOTHYROXINE NA 125 MCG TABLET (FP) PO SCH (06:00)
[2021-11-02] MEDS: INSULIN SLIDING SCALE (NOVOLOG) 1 VIAL SQ SCH ×4 (06:04→21:28)
[2021-11-02] MEDS: ALBUTEROL SO4 2.5/IPRATROPIUM 0.5 INH SOL 3 ML VIAL.NEB. NEB SCH ×4 (08:00→19:58)
[2021-11-02 08:24] LABS: BASO % 0.9 % (0-2.0); HEMATOCRIT 25.7 % (32.4-45.2); LYMPH % 31.8 % (8-40); MCH 28.7 pg (25.7-33.7); MCHC 31.2 g/dl (32.0-36.0); MEAN CELL VOLUME 91.9 fl (80-96); MEAN PLT VOLUME 8.9 fl (7.5-11.1); NEUT % 53.3 % (42.8-82.8); PLATELET COUNT 202 10^3/uL (134-434); RDW 15.3 % (11.6-15.6); WHITE BLOOD COUNT 7.3 K/mm3 (4.0-10.0)
[2021-11-02 08:55] LABS: MAGNESIUM 2.1 mg/dL (1.8-2.4)
[2021-11-02 08:56] LABS: CALCIUM 8.3 mg/dL (8.5-10.1); CREATININE 4.4 mg/dL (0.55-1.3)
[2021-11-02 08:57] LABS: ALBUMIN 2.8 g/dl (3.4-5.0); BLOOD UREA NITROGEN 90.9 mg/dL (7-18)
[2021-11-02 09:02] LABS: BILIRUBIN,TOTAL 0.3 mg/dL (0.2-1); TOT PROT 7.6 g/dl (6.4-8.2)
[2021-11-02] MEDS: FERROUS SO4 325 MG TABLET (FP) PO SCH ×3 (10:02→17:50)
[2021-11-02] MEDS: NIFEdipine E.R. 90 MG TABLET PO SCH (10:02)
[2021-11-02] MEDS: POLYETHYLENE GLYCOL (HEALTHYLAX) 3350 17 GM PACKET PO SCH (10:02)
[2021-11-02] MEDS: FOLIC ACID 1 MG TABLET (FP) PO SCH (10:02)
[2021-11-02] MEDS: APIXABAN 5 MG TABLET PO SCH ×2 (10:02→21:27)
[2021-11-02] MEDS ORDERED: EPOETIN ALFA-EPBX 10,000 UNIT/ML VIAL SQ ONE (15:00)
[2021-11-02] MEDS: EZETIMIBE 10 MG TABLET (FP) PO SCH (21:27)
[2021-11-02] MEDS: ATORVASTATIN CA 20 MG TABLET (FP) PO SCH (21:28)
[2021-11-03] MEDS: GABAPENTIN 300 MG CAPSULE PO SCH ×3 (06:37→22:06)
[2021-11-03] MEDS: LEVOTHYROXINE NA 125 MCG TABLET (FP) PO SCH (06:37)
[2021-11-03] MEDS: TORSEMIDE 20 MG TABLET (FP) PO SCH (06:37)
[2021-11-03] MEDS: INSULIN SLIDING SCALE (NOVOLOG) 1 VIAL SQ SCH ×4 (06:38→22:10)
[2021-11-03] MEDS: ALBUTEROL SO4 2.5/IPRATROPIUM 0.5 INH SOL 3 ML VIAL.NEB. NEB SCH ×4 (08:20→20:39)
[2021-11-03] MEDS: FERROUS SO4 325 MG TABLET (FP) PO SCH ×3 (09:23→17:01)
[2021-11-03] MEDS: APIXABAN 5 MG TABLET PO SCH ×2 (09:23→22:05)
[2021-11-03] MEDS: NIFEdipine E.R. 90 MG TABLET PO SCH (09:23)
[2021-11-03] MEDS: FUROSEMIDE 40 MG/4 ML INJECTABLE VIAL IVPUSH SCH ×2 (09:23→17:00)
[2021-11-03] MEDS: FOLIC ACID 1 MG TABLET (FP) PO SCH (09:23)
[2021-11-03] MEDS: POLYETHYLENE GLYCOL (HEALTHYLAX) 3350 17 GM PACKET PO SCH (09:24)
[2021-11-03] MEDS ORDERED: ACETAMINOPHEN 325 MG TABLET (FP) PO ONE (21:51)
[2021-11-03] MEDS: EZETIMIBE 10 MG TABLET (FP) PO SCH (22:04)
[2021-11-03] MEDS: ATORVASTATIN CA 20 MG TABLET (FP) PO SCH (22:05)
[2021-11-04] MEDS ORDERED: INSULIN (NOVOLOG) ASPART 100 UNITS/ML 10ML VIAL ONE (06:13)
[2021-11-04] MEDS: GABAPENTIN 300 MG CAPSULE PO SCH ×2 (07:08→15:49)
[2021-11-04] MEDS: FUROSEMIDE 40 MG/4 ML INJECTABLE VIAL IVPUSH SCH ×2 (07:08→15:49)
[2021-11-04] MEDS: LEVOTHYROXINE NA 125 MCG TABLET (FP) PO SCH (07:08)
[2021-11-04] MEDS: ALBUTEROL SO4 2.5/IPRATROPIUM 0.5 INH SOL 3 ML VIAL.NEB. NEB SCH ×3 (08:00→16:00)
[2021-11-04] MEDS: FOLIC ACID 1 MG TABLET (FP) PO SCH (09:46)
[2021-11-04] MEDS: APIXABAN 5 MG TABLET PO SCH (09:46)
[2021-11-04] MEDS: FERROUS SO4 325 MG TABLET (FP) PO SCH ×3 (09:46→16:40)
[2021-11-04] MEDS: NIFEdipine E.R. 90 MG TABLET PO SCH (09:46)
[2021-11-04] MEDS: POLYETHYLENE GLYCOL (HEALTHYLAX) 3350 17 GM PACKET PO SCH (09:46)
[2021-11-04] MEDS: INSULIN SLIDING SCALE (NOVOLOG) 1 VIAL SQ SCH ×3 (09:47→16:40)
[2021-11-04 09:50] VITALS: PULSE 94
[2021-11-04 11:53] LABS: EOS % 4.5 % (0-4.5); HEMATOCRIT 25.8 % (32.4-45.2); HEMOGLOBIN 8.2 GM/dL (10.7-15.3); LYMPH % 20.2 % (8-40); MCH 28.8 pg (25.7-33.7); MCHC 31.6 g/dl (32.0-36.0); MEAN CELL VOLUME 91.2 fl (80-96); MEAN PLT VOLUME 8.6 fl (7.5-11.1); MONO % 7.8 % (3.8-10.2); NEUT % 66.5 % (42.8-82.8); PLATELET COUNT 211 10^3/uL (134-434); RBC 2.83 M/mm3 (3.60-5.2); RDW 15.4 % (11.6-15.6); WHITE BLOOD COUNT 8.8 K/mm3 (4.0-10.0)
[2021-11-04 12:15] LABS: CALCIUM 8.4 mg/dL (8.5-10.1)
[2021-11-04 12:16] LABS: ALBUMIN 2.9 g/dl (3.4-5.0); BLOOD UREA NITROGEN 82.1 mg/dL (7-18); MAGNESIUM 2.1 mg/dL (1.8-2.4)
[2021-11-04 12:19] LABS: CREATININE 3.8 mg/dL (0.55-1.3)
[2021-11-04 12:21] LABS: BILIRUBIN,TOTAL 0.4 mg/dL (0.2-1); TOT PROT 8.4 g/dl (6.4-8.2)
[2021-11-04] MEDS ORDERED: SODIUM ZIRCONIUM CYCLOSILICATE (LOKELMA) 5 GM PACKET PO SCH (13:15)
[2021-11-04 16:50] VITALS: BP 150/78; TEMP 98.1
== END 2021-11-04 18:11 | DRG 469 ==
LOC: JER 11:30 → JERBED 17:44 → J8W 20:15
PROVIDERS: ADMIT Internal Medicine; ATTEND Nurse Practitioner Family
PROC: 30233N1 Transfusion of Nonautologous Red Blood Cells into Peripheral Vein, Percutaneous Approach (ICD-10-PCS; principal; 2021-10-29)
DX: N17.9 Acute kidney failure, unspecified (principal); J44.9 Chronic obstructive pulmonary disease, unspecified; E78.5 Hyperlipidemia, unspecified; E03.9 Hypothyroidism, unspecified; I48.91 Unspecified atrial fibrillation; G47.30 Sleep apnea, unspecified; E87.5 Hyperkalemia; I13.0 Hypertensive heart and chronic kidney disease with heart failure and stage 1 through stage 4 chronic kidney disease, or unspecified chronic kidney disease; I50.33 Acute on chronic diastolic (congestive) heart failure; E11.22 Type 2 diabetes mellitus with diabetic chronic kidney disease; N18.9 Chronic kidney disease, unspecified; M54.50 Low back pain, unspecified; K59.00 Constipation, unspecified; N83.209 Unspecified ovarian cyst, unspecified side; E66.01 Morbid (severe) obesity due to excess calories; Z68.43 Body mass index [BMI] 50.0-59.9, adult; I25.10 Atherosclerotic heart disease of native coronary artery without angina pectoris; D63.8 Anemia in other chronic diseases classified elsewhere; Z98.84 Bariatric surgery status; Z99.81 Dependence on supplemental oxygen
CPT/HCPCS: 0241U-QW; 36415; 36430; 71045-TC-FY; 76775-TC; 76856-TC; 80053; 81003; 82272; 82728; 82962; 83540; 83550; 83735; 85025; 86850; 86900; 86901; 86922; 87086; 93005; 93010; 94640; 94660; 97116-GP; 97161-GP; 99285-25; C9803-CS; P9058; Q5106; U0003; U0005

== ENCOUNTER 2021-12-06 11:50 | Inpatient (IN) | payer OTHER ==
[2021-12-06] MEDS ORDERED: DEXTROSE 50%-WATER 25 GM/50 ML DISP.SYRIN ONE ×2 (12:13→13:29)
[2021-12-06] MEDS ORDERED: DEXTROSE 50%-WATER - 25 GM/50 ML VIAL IVPUSH ONE ×2 (12:22→13:11)
[2021-12-06 12:23] VITALS: BMI 57.6
[2021-12-06 12:43] LABS: EOS % 3.8 % (0-4.5); HEMATOCRIT 26.3 % (32.4-45.2); HEMOGLOBIN 8.4 GM/dL (10.7-15.3); LYMPH % 26.4 % (8-40); MCH 28.4 pg (25.7-33.7); MCHC 31.8 g/dl (32.0-36.0); MEAN CELL VOLUME 89.3 fl (80-96); MEAN PLT VOLUME 8.8 fl (7.5-11.1); MONO % 9.4 % (3.8-10.2); NEUT % 59.4 % (42.8-82.8); PLATELET COUNT 295 10^3/uL (134-434); RBC 2.95 M/mm3 (3.60-5.2); RDW 16.6 % (11.6-15.6); WHITE BLOOD COUNT 7.4 K/mm3 (4.0-10.0)
[2021-12-06 12:56] LABS: CHLORIDE 109 mmol/L (98-107); SODIUM 145 mmol/L (136-145)
[2021-12-06 12:58] LABS: ALBUMIN 2.9 g/dl (3.4-5.0); ANION GAP 8 MMOL/L (8-16); BLOOD UREA NITROGEN 66.2 mg/dL (7-18); CALCIUM 8.4 mg/dL (8.5-10.1); CO2 28 mmol/L (21-32); MAGNESIUM 2.2 mg/dL (1.8-2.4)
[2021-12-06 13:01] LABS: CREATININE 3.8 mg/dL (0.55-1.3); SGOT/AST 48 U/L (15-37); SGPT/ALT 22 U/L (13-61)
[2021-12-06 13:03] LABS: BILIRUBIN,TOTAL 0.3 mg/dL (0.2-1); TOT PROT 8.4 g/dl (6.4-8.2)
[2021-12-06 13:04] LABS: ALK PHOS 116 U/L (45-117)
[2021-12-06 13:10] LABS: GLUCOSE,RANDOM 20 mg/dL (74-106)
[2021-12-06 13:29] LABS: VENOUS BASE EXCESS -0.6 mmol/L (-2-2); VENOUS O2 SATURATION 89.7 % (70-80); VENOUS PH 7.241 (7.310-7.410)
[2021-12-06 13:43] LABS: INR 1.44 (0.83-1.09); PROTHROMBIN TIME (PATIENT) 16.6 SEC (9.7-13.0)
[2021-12-06 13:46] LABS: ACTIVATED PTT 36.3 SECONDS (25.2-36.5)
[2021-12-06] MEDS: DEXTROSE 10%-WATER - 1,000 ML IV SCH (13:50)
[2021-12-06] MEDS ORDERED: ALBUTEROL SO4 2.5/IPRATROPIUM 0.5 INH SOL 3 ML VIAL.NEB. NEB ONE (19:17)
[2021-12-06] MEDS: ALBUTEROL SO4 2.5/IPRATROPIUM 0.5 INH SOL 3 ML VIAL.NEB. NEB SCH (19:20)
[2021-12-06] MEDS ORDERED: APIXABAN 5 MG TABLET PO SCH (22:00)
[2021-12-06] MEDS ORDERED: MELATONIN 5 MG TABLETS PO SCH (22:00)
[2021-12-06] MEDS ORDERED: ATORVASTATIN CA 20 MG TABLET (FP) PO SCH (22:00)
[2021-12-06] MEDS ORDERED: CHLORHEXIDINE GLUCONATE 4% CLEANSER FOR DECOLONIZATION TP SCH (22:00)
[2021-12-06] MEDS ORDERED: HEPARIN NA (PORCINE) 5,000 UNITS/ML 1ML VIAL SQ SCH (22:00)
[2021-12-06] MEDS ORDERED: EZETIMIBE 10 MG TABLET (FP) PO SCH (22:00)
[2021-12-06] MEDS: GABAPENTIN 300 MG CAPSULE PO SCH (22:06)
[2021-12-06] MEDS: HEPARIN NA (PORCINE) 5,000 UNITS/ML 1ML VIAL SQ SCH (22:06)
[2021-12-06] MEDS ORDERED: guaiFENesin/D-METHORPHAN HB 10 ML UNIT-DOSE CUPS PO PRN (22:56)
[2021-12-06 23:32] LABS: BLOOD UREA NITROGEN 65.2 mg/dL (7-18)
[2021-12-06 23:35] LABS: CREATININE 3.8 mg/dL (0.55-1.3)
[2021-12-07] MEDS: TORSEMIDE 20 MG TABLET (FP) PO SCH ×2 (05:28→14:41)
[2021-12-07] MEDS: GABAPENTIN 300 MG CAPSULE PO SCH ×3 (05:28→22:26)
[2021-12-07] MEDS: HEPARIN NA (PORCINE) 5,000 UNITS/ML 1ML VIAL SQ SCH ×3 (05:28→22:26)
[2021-12-07] MEDS ORDERED: LEVOTHYROXINE NA 125 MCG TABLET (FP) PO SCH (07:00)
[2021-12-07 07:48] LABS: EOS % 3.2 % (0-4.5); HEMATOCRIT 24.1 % (32.4-45.2); HEMOGLOBIN 7.5 GM/dL (10.7-15.3); LYMPH % 22.7 % (8-40); MCHC 31.2 g/dl (32.0-36.0); MEAN CELL VOLUME 89.7 fl (80-96); MEAN PLT VOLUME 8.2 fl (7.5-11.1); MONO % 8.9 % (3.8-10.2); NEUT % 64.2 % (42.8-82.8); PLATELET COUNT 213 10^3/uL (134-434); RBC 2.69 M/mm3 (3.60-5.2); RDW 16.7 % (11.6-15.6); WHITE BLOOD COUNT 6.7 K/mm3 (4.0-10.0)
[2021-12-07] MEDS: ALBUTEROL SO4 2.5/IPRATROPIUM 0.5 INH SOL 3 ML VIAL.NEB. NEB SCH ×4 (07:50→20:30)
[2021-12-07 08:12] LABS: ALBUMIN 2.7 g/dl (3.4-5.0)
[2021-12-07 08:14] LABS: PHOSPHOROUS 5.3 mg/dL (2.5-4.9)
[2021-12-07 08:16] LABS: BILIRUBIN,TOTAL 0.3 mg/dL (0.2-1); TOT PROT 7.5 g/dl (6.4-8.2)
[2021-12-07] MEDS ORDERED: NIFEdipine E.R. 90 MG TABLET PO SCH (10:00)
[2021-12-07] MEDS ORDERED: MUPIROCIN 2% TOPICAL OINTMENT FOR DECOLONIZATION NS SCH (11:30)
[2021-12-07] MEDS: DEXTROSE 10%-WATER - 1,000 ML IV SCH (14:40)
[2021-12-07] MEDS ORDERED: SODIUM ZIRCONIUM CYCLOSILICATE (LOKELMA) 5 GM PACKET PO SCH (14:45)
[2021-12-07] MEDS ORDERED: guaiFENesin/D-METHORPHAN HB 10 ML UNIT-DOSE CUPS PO PRN (19:57)
[2021-12-07] MEDS ORDERED: EZETIMIBE 10 MG TABLET (FP) PO SCH (22:00)
[2021-12-07] MEDS ORDERED: ATORVASTATIN CA 20 MG TABLET (FP) PO SCH (22:00)
[2021-12-07] MEDS ORDERED: MELATONIN 5 MG TABLETS PO SCH (22:00)
[2021-12-07] MEDS ORDERED: ACETAMINOPHEN 325 MG TABLET (FP) PO ONE (22:25)
[2021-12-07] MEDS: INSULIN SLIDING SCALE (NOVOLOG) 1 VIAL SQ SCH (22:27)
[2021-12-08] MEDS: GABAPENTIN 300 MG CAPSULE PO SCH ×2 (06:05→14:13)
[2021-12-08] MEDS: TORSEMIDE 20 MG TABLET (FP) PO SCH ×2 (06:05→14:13)
[2021-12-08] MEDS: HEPARIN NA (PORCINE) 5,000 UNITS/ML 1ML VIAL SQ SCH ×2 (06:05→14:12)
[2021-12-08] MEDS: INSULIN SLIDING SCALE (NOVOLOG) 1 VIAL SQ SCH ×3 (06:06→17:45)
[2021-12-08] MEDS ORDERED: LEVOTHYROXINE NA 125 MCG TABLET (FP) PO SCH (07:00)
[2021-12-08] MEDS: ALBUTEROL SO4 2.5/IPRATROPIUM 0.5 INH SOL 3 ML VIAL.NEB. NEB SCH ×3 (07:55→15:25)
[2021-12-08] MEDS ORDERED: SODIUM ZIRCONIUM CYCLOSILICATE (LOKELMA) 5 GM PACKET PO SCH (10:00)
[2021-12-08] MEDS ORDERED: NIFEdipine E.R. 90 MG TABLET PO SCH (10:00)
[2021-12-08 14:30] VITALS: RESP 18
[2021-12-08 20:29] VITALS: BP 151/89; PULSE 81; TEMP 98.6
== END 2021-12-08 20:30 | disposition home health service (06) | DRG 420 ==
LOC: JER 11:50 → JERBED 12:21 → JICU 20:54 → J6S 12-07 16:25
PROVIDERS: ADMIT Internal Medicine Pulmonary Disease; ATTEND Internal Medicine
DX: E11.649 Type 2 diabetes mellitus with hypoglycemia without coma (principal); I13.0 Hypertensive heart and chronic kidney disease with heart failure and stage 1 through stage 4 chronic kidney disease, or unspecified chronic kidney disease; N18.4 Chronic kidney disease, stage 4 (severe); I50.32 Chronic diastolic (congestive) heart failure; E11.22 Type 2 diabetes mellitus with diabetic chronic kidney disease; N18.9 Chronic kidney disease, unspecified; E78.5 Hyperlipidemia, unspecified; I25.10 Atherosclerotic heart disease of native coronary artery without angina pectoris; I48.91 Unspecified atrial fibrillation; J44.9 Chronic obstructive pulmonary disease, unspecified; E03.9 Hypothyroidism, unspecified; K59.00 Constipation, unspecified; M54.50 Low back pain, unspecified; G47.33 Obstructive sleep apnea (adult) (pediatric); N83.299 Other ovarian cyst, unspecified side; E11.40 Type 2 diabetes mellitus with diabetic neuropathy, unspecified; J96.11 Chronic respiratory failure with hypoxia; D64.9 Anemia, unspecified; E66.01 Morbid (severe) obesity due to excess calories; Z68.44 Body mass index [BMI] 60.0-69.9, adult; Z99.81 Dependence on supplemental oxygen; Z98.84 Bariatric surgery status; Z79.4 Long term (current) use of insulin
CPT/HCPCS: 0241U-QW; 36415; 71045-TC-FY; 80048; 80053; 82010; 82803; 82962; 83735; 84100; 84439; 84443; 84484; 85025; 85610; 85730; 93005; 93010; 94640; 94660; 99285-25; J1644

== ENCOUNTER 2021-12-23 13:04 | Inpatient (IN) | payer OTHER ==
[2021-12-23] MEDS ORDERED: ALBUTEROL SO4 2.5/IPRATROPIUM 0.5 INH SOL 3 ML VIAL.NEB. NEB ONE ×2 (13:56→14:57)
[2021-12-23 15:20] LABS: BASO % 0.7 % (0-2.0); EOS % 1.1 % (0-4.5); HEMATOCRIT 25.6 % (32.4-45.2); HEMOGLOBIN 8.1 GM/dL (10.7-15.3); LYMPH % 14.8 % (8-40); MCH 27.3 pg (25.7-33.7); MCHC 31.8 g/dl (32.0-36.0); MEAN CELL VOLUME 86.1 fl (80-96); MEAN PLT VOLUME 8.8 fl (7.5-11.1); MONO % 7.6 % (3.8-10.2); NEUT % 75.8 % (42.8-82.8); PLATELET COUNT 278 10^3/uL (134-434); RBC 2.98 M/mm3 (3.60-5.2); RDW 17.5 % (11.6-15.6); WHITE BLOOD COUNT 7.6 K/mm3 (4.0-10.0)
[2021-12-23 15:22] LABS: VENOUS BASE EXCESS 1.3 mmol/L (-2-2); VENOUS O2 SATURATION 92.1 % (70-80); VENOUS PCO2 49.6 mmHg (38-52); VENOUS PH 7.357 (7.310-7.410)
[2021-12-23 15:30] LABS: INR 1.4 (0.83-1.09); PROTHROMBIN TIME (PATIENT) 16.1 SEC (9.7-13.0)
[2021-12-23 15:33] LABS: ACTIVATED PTT 28.9 SECONDS (25.2-36.5)
[2021-12-23 15:48] LABS: CHLORIDE 105 mmol/L (98-107); SODIUM 139 mmol/L (136-145)
[2021-12-23 15:50] LABS: ALBUMIN 2.9 g/dl (3.4-5.0); ANION GAP 9 MMOL/L (8-16); BLOOD UREA NITROGEN 87.9 mg/dL (7-18); CALCIUM 7.9 mg/dL (8.5-10.1); CO2 26 mmol/L (21-32); GLUCOSE,RANDOM 196 mg/dL (74-106)
[2021-12-23 15:53] LABS: CREATININE 4.4 mg/dL (0.55-1.3); SGOT/AST 55 U/L (15-37)
[2021-12-23 15:54] LABS: SGPT/ALT 30 U/L (13-61)
[2021-12-23 15:55] LABS: BILIRUBIN,TOTAL 0.5 mg/dL (0.2-1); TOT PROT 8.4 g/dl (6.4-8.2)
[2021-12-23 15:56] LABS: ALK PHOS 186 U/L (45-117)
[2021-12-23 15:58] LABS: N-TERMINAL BNP 11558.7 pg/ml (5-125)
[2021-12-23 18:30] LABS: MAGNESIUM 1.9 mg/dL (1.8-2.4)
[2021-12-23 20:53] LABS: EPI CELLS 3 /uL (0-25.1); HYALINE CASTS 0 /uL (0-3.1); URINE APPEARANCE CLEAR; URINE BACTERIA 5 /uL (0-1359); URINE BILIRUBIN NEGATIVE (NEGATIVE); URINE COLOR YELLOW; URINE GLUCOSE (UA) NEGATIVE (NEGATIVE); URINE KETONE NEGATIVE (NEGATIVE); URINE LEUK ESTERASE NEGATIVE (NEGATIVE); URINE NITRITE NEGATIVE (NEGATIVE); URINE PROTEIN 2+ (NEGATIVE); URINE RBC 6 /uL (0-23.9); URINE UROBILINOGEN 0.2 mg/dL (0.2-1.0); URINE WBC 22 /uL (0-25.8)
[2021-12-23] MEDS ORDERED: FUROSEMIDE 40 MG/4 ML INJECTABLE VIAL IVPUSH ONE (22:12)
[2021-12-23] MEDS ORDERED: FUROSEMIDE 40 MG/4 ML INJECTABLE VIAL ONE (22:24)
[2021-12-23] MEDS ORDERED: ALBUTEROL SO4 HFA INHALER IH PRN (22:28)
[2021-12-24] MEDS: LEVOTHYROXINE NA 125 MCG TABLET (FP) PO SCH (06:36)
[2021-12-24] MEDS: ALBUTEROL SO4 2.5/IPRATROPIUM 0.5 INH SOL 3 ML VIAL.NEB. NEB SCH ×4 (08:11→20:05)
[2021-12-24] MEDS: APIXABAN 5 MG TABLET PO SCH ×2 (10:06→21:32)
[2021-12-24] MEDS: ASPIRIN 81 MG CHEWABLE TABLETS PO SCH (10:06)
[2021-12-24] MEDS: NIFEdipine E.R. 90 MG TABLET PO SCH (10:06)
[2021-12-24] MEDS: FERROUS SO4 325 MG TABLET (FP) PO SCH ×3 (10:06→17:40)
[2021-12-24 13:00] LABS: EOS % 2.4 % (0-4.5); HEMATOCRIT 24.8 % (32.4-45.2); HEMOGLOBIN 7.8 GM/dL (10.7-15.3); LYMPH % 14.5 % (8-40); MCH 27.1 pg (25.7-33.7); MCHC 31.3 g/dl (32.0-36.0); MEAN CELL VOLUME 86.6 fl (80-96); MEAN PLT VOLUME 8.5 fl (7.5-11.1); MONO % 9.5 % (3.8-10.2); NEUT % 72.6 % (42.8-82.8); PLATELET COUNT 272 10^3/uL (134-434); RBC 2.86 M/mm3 (3.60-5.2); RDW 17.4 % (11.6-15.6); WHITE BLOOD COUNT 7.6 K/mm3 (4.0-10.0)
[2021-12-24 13:21] LABS: ALBUMIN 2.8 g/dl (3.4-5.0); BLOOD UREA NITROGEN 85.8 mg/dL (7-18); CALCIUM 7.8 mg/dL (8.5-10.1); MAGNESIUM 1.9 mg/dL (1.8-2.4)
[2021-12-24 13:24] LABS: CREATININE 4.3 mg/dL (0.55-1.3); PHOSPHOROUS 4.5 mg/dL (2.5-4.9)
[2021-12-24 13:25] LABS: BILIRUBIN,TOTAL 0.3 mg/dL (0.2-1); TOT PROT 7.8 g/dl (6.4-8.2)
[2021-12-24] MEDS: SODIUM ZIRCONIUM CYCLOSILICATE (LOKELMA) 5 GM PACKET PO SCH (13:28)
[2021-12-24] MEDS ORDERED: BUMETANIDE INJECTION 1 MG/4 ML VIAL IVPUSH SCH (13:30)
[2021-12-24] MEDS ORDERED: INSULIN SLIDING SCALE (NOVOLOG) 1 VIAL SQ SCH (16:30)
[2021-12-24] MEDS: INSULIN SLIDING SCALE (NOVOLOG) 1 VIAL SQ SCH ×2 (16:47→21:40)
[2021-12-24 17:56] VITALS: BMI 65.2
[2021-12-24] MEDS: ATORVASTATIN CA 40 MG TABLET (FP) PO SCH (21:32)
[2021-12-24] MEDS: GABAPENTIN 300 MG CAPSULE PO SCH (21:32)
[2021-12-24] MEDS: EZETIMIBE 10 MG TABLET (FP) PO SCH (21:32)
[2021-12-24] MEDS: INSULIN (LEVEMIR) 100 UNITS/ML UNITS SQ SCH (21:32)
[2021-12-25] MEDS: GABAPENTIN 300 MG CAPSULE PO SCH ×3 (06:08→22:21)
[2021-12-25] MEDS: FUROSEMIDE 40 MG/4 ML INJECTABLE VIAL IVPUSH SCH ×2 (06:08→13:56)
[2021-12-25] MEDS: LEVOTHYROXINE NA 125 MCG TABLET (FP) PO SCH (06:08)
[2021-12-25] MEDS: INSULIN SLIDING SCALE (NOVOLOG) 1 VIAL SQ SCH ×4 (06:16→22:19)
[2021-12-25 07:44] LABS: CALCIUM 7.7 mg/dL (8.5-10.1)
[2021-12-25 07:45] LABS: HEMOGLOBIN 7.4 GM/dL (10.7-15.3); MCH 27.8 pg (25.7-33.7); MCHC 32.1 g/dl (32.0-36.0); MEAN CELL VOLUME 86.4 fl (80-96); MEAN PLT VOLUME 8.4 fl (7.5-11.1); PLATELET COUNT 249 10^3/uL (134-434); RBC 2.66 M/mm3 (3.60-5.2); RDW 17.4 % (11.6-15.6); WHITE BLOOD COUNT 6.9 K/mm3 (4.0-10.0)
[2021-12-25 07:46] LABS: ALBUMIN 2.7 g/dl (3.4-5.0); BLOOD UREA NITROGEN 88.1 mg/dL (7-18)
[2021-12-25 07:48] LABS: CREATININE 4.4 mg/dL (0.55-1.3)
[2021-12-25 07:50] LABS: BILIRUBIN,TOTAL 0.3 mg/dL (0.2-1); TOT PROT 7.6 g/dl (6.4-8.2)
[2021-12-25] MEDS: ALBUTEROL SO4 2.5/IPRATROPIUM 0.5 INH SOL 3 ML VIAL.NEB. NEB SCH ×4 (08:20→20:55)
[2021-12-25] MEDS: FERROUS SO4 325 MG TABLET (FP) PO SCH ×3 (11:38→22:22)
[2021-12-25] MEDS: APIXABAN 5 MG TABLET PO SCH ×2 (11:38→22:21)
[2021-12-25] MEDS: NIFEdipine E.R. 90 MG TABLET PO SCH (11:38)
[2021-12-25] MEDS: ASPIRIN 81 MG CHEWABLE TABLETS PO SCH (11:38)
[2021-12-25] MEDS: SODIUM ZIRCONIUM CYCLOSILICATE (LOKELMA) 5 GM PACKET PO SCH (11:39)
[2021-12-25] MEDS ORDERED: hydrALAZINE HCL 20 MG/ML VIAL IVPUSH PRN (16:35)
[2021-12-25] MEDS: INSULIN (LEVEMIR) 100 UNITS/ML UNITS SQ SCH (22:20)
[2021-12-25] MEDS: ATORVASTATIN CA 40 MG TABLET (FP) PO SCH (22:21)
[2021-12-25] MEDS: EZETIMIBE 10 MG TABLET (FP) PO SCH (22:21)
[2021-12-25] MEDS: NYSTATIN POWDER 100,000 UNITS/GM - 15 GM TOPICAL POWDER TP SCH (22:26)
[2021-12-25] MEDS ORDERED: ACETAMINOPHEN 325 MG TABLET (FP) PO ONE (22:46)
[2021-12-25] MEDS ORDERED: MELATONIN 1 MG TABLET PO ONE (23:15)
[2021-12-26] MEDS: LEVOTHYROXINE NA 125 MCG TABLET (FP) PO SCH (06:08)
[2021-12-26] MEDS: GABAPENTIN 300 MG CAPSULE PO SCH ×3 (06:08→21:22)
[2021-12-26] MEDS: INSULIN SLIDING SCALE (NOVOLOG) 1 VIAL SQ SCH ×4 (06:12→21:59)
[2021-12-26] MEDS: FUROSEMIDE 40 MG/4 ML INJECTABLE VIAL IVPUSH SCH ×2 (06:12→13:36)
[2021-12-26] MEDS: ALBUTEROL SO4 2.5/IPRATROPIUM 0.5 INH SOL 3 ML VIAL.NEB. NEB SCH ×4 (07:15→20:12)
[2021-12-26] MEDS: FERROUS SO4 325 MG TABLET (FP) PO SCH ×3 (09:38→17:14)
[2021-12-26] MEDS: APIXABAN 5 MG TABLET PO SCH ×2 (09:38→21:22)
[2021-12-26] MEDS: NIFEdipine E.R. 90 MG TABLET PO SCH (09:38)
[2021-12-26] MEDS: ASPIRIN 81 MG CHEWABLE TABLETS PO SCH (09:38)
[2021-12-26] MEDS: NYSTATIN POWDER 100,000 UNITS/GM - 15 GM TOPICAL POWDER TP SCH ×2 (09:40→21:24)
[2021-12-26] MEDS: SODIUM ZIRCONIUM CYCLOSILICATE (LOKELMA) 5 GM PACKET PO SCH (09:42)
[2021-12-26] MEDS ORDERED: EPOETIN ALFA-EPBX 10,000 UNIT/ML VIAL SQ ONE (11:15)
[2021-12-26] MEDS: EZETIMIBE 10 MG TABLET (FP) PO SCH (21:22)
[2021-12-26] MEDS: ATORVASTATIN CA 40 MG TABLET (FP) PO SCH (21:22)
[2021-12-26] MEDS: INSULIN (LEVEMIR) 100 UNITS/ML UNITS SQ SCH (21:29)
[2021-12-26] MEDS ORDERED: MELATONIN 1 MG TABLET PO ONE ×2 (21:35→22:43)
[2021-12-26] MEDS ORDERED: ACETAMINOPHEN 325 MG TABLET (FP) PO ONE (21:35)
[2021-12-27] MEDS: LEVOTHYROXINE NA 125 MCG TABLET (FP) PO SCH (06:26)
[2021-12-27] MEDS: FUROSEMIDE 40 MG/4 ML INJECTABLE VIAL IVPUSH SCH ×2 (06:26→13:25)
[2021-12-27] MEDS: GABAPENTIN 300 MG CAPSULE PO SCH ×3 (06:26→21:20)
[2021-12-27] MEDS: INSULIN SLIDING SCALE (NOVOLOG) 1 VIAL SQ SCH ×4 (06:33→21:24)
[2021-12-27 08:01] LABS: HEMATOCRIT 22.8 % (32.4-45.2); HEMOGLOBIN 7.1 GM/dL (10.7-15.3); MCH 26.6 pg (25.7-33.7); MEAN PLT VOLUME 8.4 fl (7.5-11.1); PLATELET COUNT 248 10^3/uL (134-434); RBC 2.66 M/mm3 (3.60-5.2); RDW 17.6 % (11.6-15.6); WHITE BLOOD COUNT 7.1 K/mm3 (4.0-10.0)
[2021-12-27] MEDS: FERROUS SO4 325 MG TABLET (FP) PO SCH ×3 (08:03→17:35)
[2021-12-27 08:20] LABS: ALBUMIN 2.6 g/dl (3.4-5.0); BLOOD UREA NITROGEN 70.1 mg/dL (7-18); CALCIUM 7.6 mg/dL (8.5-10.1); MAGNESIUM 1.9 mg/dL (1.8-2.4)
[2021-12-27 08:23] LABS: CREATININE 3.8 mg/dL (0.55-1.3); PHOSPHOROUS 4.6 mg/dL (2.5-4.9)
[2021-12-27 08:25] LABS: BILIRUBIN,TOTAL 0.6 mg/dL (0.2-1); TOT PROT 7.3 g/dl (6.4-8.2)
[2021-12-27] MEDS: ALBUTEROL SO4 2.5/IPRATROPIUM 0.5 INH SOL 3 ML VIAL.NEB. NEB SCH ×4 (08:58→20:05)
[2021-12-27] MEDS ORDERED: METOPROLOL TARTRATE 5 MG/5 ML VIAL IVPUSH ONE ×2 (09:08→20:00)
[2021-12-27] MEDS: NYSTATIN POWDER 100,000 UNITS/GM - 15 GM TOPICAL POWDER TP SCH ×2 (10:19→21:27)
[2021-12-27] MEDS: NIFEdipine E.R. 90 MG TABLET PO SCH (10:19)
[2021-12-27] MEDS: ASPIRIN 81 MG CHEWABLE TABLETS PO SCH (10:19)
[2021-12-27] MEDS: SODIUM ZIRCONIUM CYCLOSILICATE (LOKELMA) 5 GM PACKET PO SCH (10:19)
[2021-12-27] MEDS: APIXABAN 5 MG TABLET PO SCH ×2 (10:19→21:20)
[2021-12-27] MEDS: METOPROLOL TARTRATE 25 MG TABLET (FP) PO SCH ×2 (13:25→21:20)
[2021-12-27] MEDS ORDERED: SENNOSIDES 8.6MG TABLET (FP) PO PRN (14:47)
[2021-12-27] MEDS: POLYETHYLENE GLYCOL (HEALTHYLAX) 3350 17 GM PACKET PO SCH (15:12)
[2021-12-27] MEDS ORDERED: DOXEPIN HCL 10 MG CAPSULE PO PRN (16:37)
[2021-12-27] MEDS ORDERED: METOPROLOL TARTRATE 5 MG/5 ML VIAL ONE (19:56)
[2021-12-27] MEDS ORDERED: METOPROLOL TARTRATE 5 MG/5 ML VIAL IVPUSH PRN (19:57)
[2021-12-27] MEDS: ATORVASTATIN CA 40 MG TABLET (FP) PO SCH (21:20)
[2021-12-27] MEDS: EZETIMIBE 10 MG TABLET (FP) PO SCH (21:21)
[2021-12-27] MEDS: INSULIN (LEVEMIR) 100 UNITS/ML UNITS SQ SCH (21:24)
[2021-12-27] MEDS ORDERED: MELATONIN 5 MG TABLETS PO SCH (22:00)
[2021-12-28 05:35] VITALS: RESP 22
[2021-12-28] MEDS: FUROSEMIDE 40 MG/4 ML INJECTABLE VIAL IVPUSH SCH ×2 (06:23→14:40)
[2021-12-28] MEDS: GABAPENTIN 300 MG CAPSULE PO SCH ×2 (06:23→14:40)
[2021-12-28] MEDS: LEVOTHYROXINE NA 125 MCG TABLET (FP) PO SCH (06:23)
[2021-12-28] MEDS: INSULIN SLIDING SCALE (NOVOLOG) 1 VIAL SQ SCH ×2 (06:26→12:05)
[2021-12-28] MEDS: FERROUS SO4 325 MG TABLET (FP) PO SCH ×2 (07:50→12:25)
[2021-12-28] MEDS: ALBUTEROL SO4 2.5/IPRATROPIUM 0.5 INH SOL 3 ML VIAL.NEB. NEB SCH ×3 (08:59→15:25)
[2021-12-28 09:42] VITALS: BP 155/76; PULSE 99; TEMP 98.7
[2021-12-28] MEDS: POLYETHYLENE GLYCOL (HEALTHYLAX) 3350 17 GM PACKET PO SCH (09:42)
[2021-12-28] MEDS: METOPROLOL TARTRATE 25 MG TABLET (FP) PO SCH (09:42)
[2021-12-28] MEDS: ASPIRIN 81 MG CHEWABLE TABLETS PO SCH (09:42)
[2021-12-28] MEDS: NIFEdipine E.R. 90 MG TABLET PO SCH (09:42)
[2021-12-28] MEDS: SODIUM ZIRCONIUM CYCLOSILICATE (LOKELMA) 5 GM PACKET PO SCH (09:42)
[2021-12-28] MEDS: APIXABAN 5 MG TABLET PO SCH (09:42)
[2021-12-28] MEDS: NYSTATIN POWDER 100,000 UNITS/GM - 15 GM TOPICAL POWDER TP SCH (09:43)
[2021-12-28 10:44] LABS: BLOOD UREA NITROGEN 71.1 mg/dL (7-18); CALCIUM 7.7 mg/dL (8.5-10.1)
[2021-12-28 10:46] LABS: CREATININE 3.7 mg/dL (0.55-1.3)
[2021-12-28 12:35] LABS: N-TERMINAL BNP 12551.2 pg/ml (5-125)
[2021-12-28 12:56] LABS: HEMATOCRIT 25.1 % (32.4-45.2); HEMOGLOBIN 7.7 GM/dL (10.7-15.3); MCH 26.3 pg (25.7-33.7); MCHC 30.5 g/dl (32.0-36.0); MEAN CELL VOLUME 86.4 fl (80-96); MEAN PLT VOLUME 8.2 fl (7.5-11.1); PLATELET COUNT 258 10^3/uL (134-434); RBC 2.91 M/mm3 (3.60-5.2); WHITE BLOOD COUNT 8.5 K/mm3 (4.0-10.0)
== END 2021-12-28 20:12 | disposition home or self-care (01) | DRG 194 ==
LOC: JER 13:04 → JERBED 16:32 → J4W 23:41
PROVIDERS: ADMIT Internal Medicine; ATTEND Internal Medicine
DX: I13.2 Hypertensive heart and chronic kidney disease with heart failure and with stage 5 chronic kidney disease, or end stage renal disease (principal); J96.21 Acute and chronic respiratory failure with hypoxia; I24.8 Other forms of acute ischemic heart disease; E11.65 Type 2 diabetes mellitus with hyperglycemia; E66.01 Morbid (severe) obesity due to excess calories; N18.5 Chronic kidney disease, stage 5; Z68.44 Body mass index [BMI] 60.0-69.9, adult; D63.1 Anemia in chronic kidney disease; I48.0 Paroxysmal atrial fibrillation; I50.33 Acute on chronic diastolic (congestive) heart failure; G47.33 Obstructive sleep apnea (adult) (pediatric); E03.9 Hypothyroidism, unspecified
CPT/HCPCS: 0241U-QW; 36415; 71045-TC-FY; 76705-TC; 80048; 80053; 80061; 81003; 82436; 82570; 82803; 82962; 83036; 83735; 83880; 84100; 84132; 84133; 84156; 84300; 84443; 84484; 85025; 85027; 85379; 85610; 85730; 87086; 93005; 93010; 93306-TC; 94640; 94660; 99285-25; Q5106

== ENCOUNTER 2022-02-16 09:05 | Observation (INO) | payer OTHER ==
[2022-02-16 11:54] LABS: BASO % 1.1 % (0-2.0); EOS % 11.5 % (0-4.5); HEMATOCRIT 30.6 % (32.4-45.2); HEMOGLOBIN 9.7 GM/dL (10.7-15.3); LYMPH % 29.2 % (8-40); MCH 26.6 pg (25.7-33.7); MCHC 31.7 g/dl (32.0-36.0); MEAN CELL VOLUME 83.9 fl (80-96); MEAN PLT VOLUME 7.6 fl (7.5-11.1); MONO % 8.2 % (3.8-10.2); PLATELET COUNT 343 10^3/uL (134-434); RBC 3.64 M/mm3 (3.60-5.2); RDW 17.5 % (11.6-15.6); WHITE BLOOD COUNT 6.7 K/mm3 (4.0-10.0)
[2022-02-16 12:06] LABS: CHLORIDE 104 mmol/L (98-107); SODIUM 141 mmol/L (136-145)
[2022-02-16 12:08] LABS: ALBUMIN 2.8 g/dl (3.4-5.0); ANION GAP 13 MMOL/L (8-16); BLOOD UREA NITROGEN 32.9 mg/dL (7-18); CALCIUM 8.9 mg/dL (8.5-10.1); CO2 24 mmol/L (21-32); GLUCOSE,RANDOM 147 mg/dL (74-106)
[2022-02-16 12:11] LABS: CREATININE 3.1 mg/dL (0.55-1.3); SGOT/AST 23 U/L (15-37); SGPT/ALT 14 U/L (13-61)
[2022-02-16 12:13] LABS: BILIRUBIN,TOTAL 0.2 mg/dL (0.2-1); TOT PROT 7.8 g/dl (6.4-8.2)
[2022-02-16 12:14] LABS: ALK PHOS 110 U/L (45-117)
[2022-02-16 12:16] LABS: INR 1.14 (0.83-1.09); PROTHROMBIN TIME (PATIENT) 13.1 SEC (9.7-13.0)
[2022-02-16 12:17] LABS: ACTIVATED PTT 31.3 SECONDS (25.2-36.5)
[2022-02-16] MEDS ORDERED: ACETAMINOPHEN 1000 MG/100 ML BAG IVPB ONE (12:23)
[2022-02-16] MEDS ORDERED: MAG HYDROX/AL HYDROX/SIMETH -MYLANTA- ORAL SUSPENSION PO ONE (12:34)
[2022-02-16 12:48] LABS: LIPASE 147 U/L (73-393)
[2022-02-16] MEDS ORDERED: ACETAMINOPHEN INJECTION 100 ML IVPB ONE (13:01)
[2022-02-16] MEDS ORDERED: ALBUTEROL SO4 HFA INHALER IH PRN (14:33)
[2022-02-16] MEDS ORDERED: hydrALAZINE HCL 25 MG TABLET (FP) ONE (16:09)
[2022-02-16] MEDS: hydrALAZINE HCL 25 MG TABLET (FP) PO SCH ×2 (16:15→23:43)
[2022-02-16] MEDS: INSULIN SLIDING SCALE (NOVOLOG) 1 VIAL SQ SCH ×2 (17:37→23:45)
[2022-02-16 21:24] VITALS: BMI 49.8
[2022-02-16] MEDS ORDERED: HEPARIN NA (PORCINE) 5,000 UNITS/ML 1ML VIAL SQ SCH (22:00)
[2022-02-16] MEDS ORDERED: APIXABAN 5 MG TABLET PO SCH (22:00)
[2022-02-16] MEDS: EZETIMIBE 10 MG TABLET (FP) PO SCH (23:42)
[2022-02-16] MEDS: ATORVASTATIN CA 40 MG TABLET (FP) PO SCH (23:42)
[2022-02-16] MEDS: MELATONIN 5 MG TABLETS PO SCH (23:42)
[2022-02-16] MEDS: AMMONIUM LACTATE 12% LOTION 225 GM BOTTLE TP SCH (23:45)
[2022-02-17] MEDS ORDERED: LEVOTHYROXINE NA 125 MCG TABLET (FP) PO SCH (07:00)
[2022-02-17] MEDS: hydrALAZINE HCL 25 MG TABLET (FP) PO SCH ×3 (07:08→21:13)
[2022-02-17] MEDS: INSULIN SLIDING SCALE (NOVOLOG) 1 VIAL SQ SCH ×4 (07:09→21:18)
[2022-02-17] MEDS: TORSEMIDE 100 MG TABLET PO SCH ×2 (07:58→14:27)
[2022-02-17] MEDS ORDERED: ACETAMINOPHEN 1000 MG/100 ML BAG IVPB ONE (09:15)
[2022-02-17] MEDS ORDERED: NIFEdipine E.R. 90 MG TABLET PO SCH (10:00)
[2022-02-17 10:50] LABS: BASO % 0.8 % (0-2.0); EOS % 10.7 % (0-4.5); HEMATOCRIT 27.9 % (32.4-45.2); HEMOGLOBIN 8.8 GM/dL (10.7-15.3); LYMPH % 28.1 % (8-40); MCH 26.3 pg (25.7-33.7); MCHC 31.5 g/dl (32.0-36.0); MEAN CELL VOLUME 83.6 fl (80-96); MEAN PLT VOLUME 7.2 fl (7.5-11.1); MONO % 9.8 % (3.8-10.2); NEUT % 50.6 % (42.8-82.8); PLATELET COUNT 297 10^3/uL (134-434); RBC 3.34 M/mm3 (3.60-5.2); RDW 17.6 % (11.6-15.6); WHITE BLOOD COUNT 5.9 K/mm3 (4.0-10.0)
[2022-02-17 11:19] LABS: ALBUMIN 2.5 g/dl (3.4-5.0); CALCIUM 8.8 mg/dL (8.5-10.1); CREATININE 2.9 mg/dL (0.55-1.3)
[2022-02-17 11:20] LABS: BLOOD UREA NITROGEN 28.5 mg/dL (7-18); MAGNESIUM 2.3 mg/dL (1.8-2.4)
[2022-02-17 11:21] LABS: BILIRUBIN,TOTAL 0.2 mg/dL (0.2-1); TOT PROT 6.7 g/dl (6.4-8.2)
[2022-02-17] MEDS: AMMONIUM LACTATE 12% LOTION 225 GM BOTTLE TP SCH ×2 (12:21→21:18)
[2022-02-17] MEDS ORDERED: LIDOCAINE HCL 1%, 10 MG/ML (20ML VIAL) ONE (14:11)
[2022-02-17] MEDS ORDERED: HEPARIN NA (PORCINE) 5,000 UNITS/ML 1ML VIAL ONE (14:12)
[2022-02-17] MEDS ORDERED: KETAMINE HCL 500 MG/10 ML VIAL ONE (15:13)
[2022-02-17] MEDS ORDERED: MIDAZOLAM HCL 2 MG/2 ML SINGLE DOSE VIAL ONE (15:13)
[2022-02-17] MEDS ORDERED: DEXMEDETOMIDINE HCL 200 MCG/2 ML IVPB ONE (15:15)
[2022-02-17] MEDS ORDERED: SODIUM CHLORIDE 250 ML IV PRN (15:43)
[2022-02-17] MEDS ORDERED: EPOETIN ALFA-EPBX 10,000 UNIT/ML VIAL IVPUSH ONE (15:45)
[2022-02-17] MEDS ORDERED: LIDOCAINE HCL 1%, 10 MG/ML (20ML VIAL) NR ONE (15:57)
[2022-02-17] MEDS ORDERED: ACETAMINOPHEN 325 MG TABLET (FP) PO PRN (16:24)
[2022-02-17] MEDS ORDERED: PROPOFOL 20 ML ONE (16:36)
[2022-02-17 19:51] VITALS: RESP 18
[2022-02-17 21:03] VITALS: BP 127/62; PULSE 90; TEMP 99.1
[2022-02-17] MEDS ORDERED: INSULIN (NOVOLOG) ASPART 100 UNITS/ML 10ML VIAL ONE (21:11)
[2022-02-17] MEDS: ATORVASTATIN CA 40 MG TABLET (FP) PO SCH (21:13)
[2022-02-17] MEDS: EZETIMIBE 10 MG TABLET (FP) PO SCH (21:13)
[2022-02-17] MEDS: MELATONIN 5 MG TABLETS PO SCH (21:13)
== END 2022-02-17 21:28 | disposition home or self-care (01) ==
LOC: JER 09:05 → JERBED 13:09 → INTOOBSV 13:09 → UNDOADMOB 13:09 → JERBED 14:17 → J6S 21:01
PROVIDERS: ADMIT Internal Medicine; ATTEND Internal Medicine
PROC: 0WPG33Z Removal of Infusion Device from Peritoneal Cavity, Percutaneous Approach (ICD-10-PCS; principal; 2022-02-16)
PROC: 0WHG33Z Insertion of Infusion Device into Peritoneal Cavity, Percutaneous Approach (ICD-10-PCS; 2022-02-16)
PROC: 3E033NZ Introduction of Analgesics, Hypnotics, Sedatives into Peripheral Vein, Percutaneous Approach (ICD-10-PCS; 2022-02-16)
PROC: 3E0337Z Introduction of Electrolytic and Water Balance Substance into Peripheral Vein, Percutaneous Approach (ICD-10-PCS; 2022-02-16)
DX: T82.858A Stenosis of other vascular prosthetic devices, implants and grafts, initial encounter (principal); E11.22 Type 2 diabetes mellitus with diabetic chronic kidney disease; I13.2 Hypertensive heart and chronic kidney disease with heart failure and with stage 5 chronic kidney disease, or end stage renal disease; N18.6 End stage renal disease; Z99.2 Dependence on renal dialysis; E66.01 Morbid (severe) obesity due to excess calories; Z68.42 Body mass index [BMI] 45.0-49.9, adult; Y84.8 Other medical procedures as the cause of abnormal reaction of the patient, or of later complication, without mention of misadventure at the time of the procedure; Z98.84 Bariatric surgery status; E03.9 Hypothyroidism, unspecified; J18.9 Pneumonia, unspecified organism; D64.9 Anemia, unspecified
CPT/HCPCS: 0241U-QW; 36415; 71045-TC-FY; 76000-TC-FY; 80053; 82962; 83690; 83735; 84100; 84484; 85025; 85610; 85730; 86803; 86850; 86900; 86901; 87340; 93005; 93010; 94760; 96361; 96374; 96375; 96376; 99285-25; C1750; G0378; J1644; Q5106

== ENCOUNTER 2022-03-31 04:22 | Day surgery (SDC) | payer OTHER ==
[2022-03-29 14:26] VITALS: BMI 50.4
[2022-03-31] MEDS ORDERED: MIDAZOLAM HCL 2 MG/2 ML SINGLE DOSE VIAL ONE (11:08)
[2022-03-31] MEDS ORDERED: ROPIVACAINE HCL 0.5% 30ML VIAL ONE (11:11)
[2022-03-31] MEDS ORDERED: ceFAZolin SODIUM 1 GM VIAL ONE (11:44)
[2022-03-31] MEDS ORDERED: ceFAZolin SODIUM 1 GM VIAL IVPB ONE (11:44)
[2022-03-31] MEDS ORDERED: LIDOCAINE HCL 1%, 10 MG/ML (20ML VIAL) NR ONE (11:53)
[2022-03-31] MEDS ORDERED: ONDANSETRON 4 MG/2 ML VIAL IVPUSH PRN (13:09)
[2022-03-31 14:58] VITALS: RESP 20; TEMP 97.8
[2022-03-31 15:04] VITALS: BP 139/96; PULSE 104
== END 2022-03-31 15:12 | disposition home or self-care (01) ==
LOC: JASU-SURG 04:22
PROVIDERS: ATTEND Surgery
PROC: 031C0ZF Bypass Left Radial Artery to Lower Arm Vein, Open Approach (ICD-10-PCS; principal; 2022-03-31 12:00)
DX: I12.0 Hypertensive chronic kidney disease with stage 5 chronic kidney disease or end stage renal disease (principal); E11.22 Type 2 diabetes mellitus with diabetic chronic kidney disease; N18.6 End stage renal disease; Z99.2 Dependence on renal dialysis; Z79.4 Long term (current) use of insulin; Z79.84 Long term (current) use of oral hypoglycemic drugs; Z79.85 Long-term (current) use of injectable non-insulin antidiabetic drugs; E66.01 Morbid (severe) obesity due to excess calories
CPT/HCPCS: 36415; 82962; 84132; 94760

== ENCOUNTER 2023-08-30 10:23 | Emergency (ER) | payer OTHER ==
[2023-08-30 10:45] VITALS: RESP 20; TEMP 98.5; BMI 51.5
[2023-08-30] MEDS ORDERED: ACETAMINOPHEN 325 MG TABLET (FP) ONE (11:16)
[2023-08-30] MEDS: ACETAMINOPHEN 500 MG TABLET (FP) PO ONE (11:18)
[2023-08-30 11:25] LABS: BASO % 0.6 % (0-2.0); EOS % 1.9 % (0-4.5); HEMOGLOBIN 10.6 GM/dL (10.7-15.3); LYMPH % 23.1 % (8-40); MCH 31.8 pg (25.7-33.7); MCHC 33.1 g/dl (32.0-36.0); MEAN CELL VOLUME 95.9 fl (80-96); MEAN PLT VOLUME 8.9 fl (7.5-11.1); MONO % 12.7 % (3.8-10.2); NEUT % 61.7 % (42.8-82.8); PLATELET COUNT 180 10^3/uL (134-434); RBC 3.34 M/mm3 (3.60-5.2); RDW 14.2 % (11.6-15.6); WHITE BLOOD COUNT 9.5 K/mm3 (4.0-10.0)
[2023-08-30 11:31] LABS: INR 1.07 (0.83-1.09); PROTHROMBIN TIME (PATIENT) 12.1 SEC (9.7-13.0)
[2023-08-30 11:33] LABS: ACTIVATED PTT 34.7 SECONDS (25.2-36.5)
[2023-08-30 11:47] LABS: POTASSIUM 4.7 mmol/L (3.5-5.1)
[2023-08-30 11:49] LABS: CALCIUM 8.4 mg/dL (8.5-10.1)
[2023-08-30 11:50] LABS: BLOOD UREA NITROGEN 18.4 mg/dL (7-18)
[2023-08-30 11:54] LABS: BILIRUBIN,TOTAL 0.5 mg/dL (0.2-1); TOT PROT 7.6 g/dl (6.4-8.2)
[2023-08-30 12:17] LABS: VENOUS BASE EXCESS -1.3 mmol/L (-2-2); VENOUS O2 SATURATION 34.1 % (70-80); VENOUS PCO2 52.8 mmHg (38-52); VENOUS PH 7.304 (7.310-7.410)
[2023-08-30 12:18] VITALS: BP 99/40; PULSE 82
== END 2023-08-30 14:55 | disposition home or self-care (01) ==
LOC: JER 10:23
DX: R07.89 Other chest pain (principal); R00.2 Palpitations
CPT/HCPCS: 36415; 71045-TC-FY; 80053; 82803; 84484; 85025; 85610; 85730; 93005; 93010; 99285-25

== ENCOUNTER 2024-04-30 21:10 | Emergency (ER) | payer OTHER ==
[2024-04-30 21:27] VITALS: BMI 43.2
[2024-04-30] MEDS ORDERED: FAMOTIDINE 20 MG/50 ML IVPB 20 MG/50 ML MG IVPB ONE (22:56)
[2024-04-30] MEDS ORDERED: morphine SULFATE 4 MG/ML VIAL ONE (22:56)
[2024-04-30 23:12] LABS: HEMATOCRIT 36.2 % (34.1-44.9); HEMOGLOBIN 11.7 g/dL (11.2-15.7); MCHC 32.3 g/dl (32.2-35.5); MEAN PLT VOLUME 10.3 fl (9.4-12.3); PLATELET COUNT # 203 x10^3/uL (182-369); RDW 13.7 % (12.3-16.6)
[2024-04-30] MEDS: morphine CARPU-JECT 4 MG/1 ML DISP.SYRIN IVPUSH ONE (23:15)
[2024-04-30] MEDS: FAMOTIDINE 20 MG/50 ML IVPB 20 MG/50 ML MG IVPB ONE (23:15)
[2024-04-30 23:43] LABS: CHLORIDE 95 mmol/L (98-107); POTASSIUM 3.9 mmol/L (3.5-5.1); SODIUM 135 mmol/L (136-145)
[2024-04-30 23:46] LABS: ALBUMIN 3.9 g/dl (3.4-5.0); ANION GAP 15 mmol/L (4-13); BLOOD UREA NITROGEN 38.2 mg/dL (7-18); CALCIUM 10.1 mg/dL (8.5-10.1); CO2 24 mmol/L (21-32); GLUCOSE,RANDOM 194 mg/dL (74-106); MAGNESIUM 2.2 mg/dL (1.8-2.4)
[2024-04-30 23:48] LABS: LACTIC ACID 3.6 mmol/L (0.4-2.0)
[2024-04-30 23:49] LABS: SGOT/AST 896 U/L (15-37); SGPT/ALT 395 U/L (13-61)
[2024-04-30 23:51] LABS: BILIRUBIN,TOTAL 1.8 mg/dL (0.2-1); TOT PROT 9.2 g/dl (6.4-8.2)
[2024-04-30 23:52] LABS: ALK PHOS 223 U/L (45-117)
[2024-04-30 23:53] LABS: CREATININE 8.9 mg/dL (0.55-1.3)
[2024-05-01] MEDS ORDERED: ACETAMINOPHEN INJECTION 100 ML ONE (00:52)
[2024-05-01] MEDS ORDERED: CEFEPIME HCL/D5W 2 GM/50 ML BAG IVPB ONE (00:52)
[2024-05-01] MEDS: SODIUM CHLORIDE 0.9% 500 ML INFUS.BAG IV ONE (00:59)
[2024-05-01] MEDS: CEFEPIME 2 GM in DEXTROSE 5%-WATER 100 ML IVPB ONE (00:59)
[2024-05-01] MEDS: ACETAMINOPHEN 1000 MG/100 ML BAG IVPB ONE (00:59)
[2024-05-01] MEDS ORDERED: SODIUM CHLORIDE 0.9% 500 ML INFUS.BAG IV ONE (01:39)
[2024-05-01 02:18] VITALS: PULSE 113; TEMP 98.8
[2024-05-01 02:29] VITALS: RESP 18
[2024-05-01 02:35] VITALS: BP 138/69
== END 2024-05-01 02:36 | disposition short-term general hospital (02) ==
LOC: JER 21:10
PROC: 3E03329 Introduction of Other Anti-infective into Peripheral Vein, Percutaneous Approach (ICD-10-PCS; principal; 2024-04-30)
PROC: 3E033NZ Introduction of Analgesics, Hypnotics, Sedatives into Peripheral Vein, Percutaneous Approach (ICD-10-PCS; 2024-04-30)
PROC: 3E033GC Introduction of Other Therapeutic Substance into Peripheral Vein, Percutaneous Approach (ICD-10-PCS; 2024-05-01)
PROC: 3E033NZ Introduction of Analgesics, Hypnotics, Sedatives into Peripheral Vein, Percutaneous Approach (ICD-10-PCS; 2024-05-01)
DX: K83.09 Other cholangitis (principal); R10.11 Right upper quadrant pain; R10.13 Epigastric pain; R11.2 Nausea with vomiting, unspecified
CPT/HCPCS: 0241U-QW; 36415; 71045-TC-FY; 76705-TC; 80053; 83605; 83690; 83735; 84484; 85025; 93005; 93010; 99291; J0131